=== PATIENT | female | born 1940 ===

== ENCOUNTER 2022-12-07 09:56 | Inpatient (IN) | payer OTHER ==
[2022-12-07 11:10] VITALS: BMI 23.1
--- OUTSIDE RECORDS SUMMARY | 2022-12-07 11:31 | XMS REPORT | Continuity of Care Document ---
:1940 Author Organization [facility] t Address [address] [place] [address]. [address] [place] [address] Care Team Providers Name Role Phone Sharpless Primary Care Physician MAGGIE ARCHIBALD Attending Clinician Unavailable GRECIA WALSH Attending Clinician Unavailable JOSE HU Attending Clinician Unavailable JOSE HU Attending Clinician Unavailable ELIZABETH NINA Attending Clinician Unavailable MARCIE MENCHACA Attending Clinician Unavailable MARCIE MENCHACA Attending Clinician Unavailable KYLEE NAILS Attending Clinician Unavailable Stacey Garcia RN Attending Clinician Unavailable Merced Farley RN Attending Clinician Kylee Nails MD Attending Clinician ARPAN CADENA Attending Clinician Unavailable Mery Myles MD Attending Clinician Arpan Cadena MD Attending Clinician Indio Pfeiffer MD Attending Clinician Maggie Archibald MD Attending Clinician [phone] Maico ARIAS, Elizabeth Attending Clinician CLYDE DUONG Attending Clinician Unavailable CLYDE DUONG Attending Clinician Unavailable Derrell HARTLEY Attending Clinician Unavailable Sharif Raymond MD Attending Clinician Naeem QUOC, Derrell Lay Attending Clinician JUANCHO SPEARS Attending Clinician Unavailable Lesvia PRYOR, Meli Guaman Attending Clinician Juancho Spears MD Attending Clinician Mihir Spears MD Attending Clinician Unavailable 2, [facility] Attending Clinician Unavailable Lab, Ang - Db Attending Clinician Unavailable MIGUELANGEL MCKNIGHT Attending Clinician Unavailable MIGUELANGEL MCKNIGHT Attending Clinician Unavailable Russell Lezama DO Attending Clinician RUSSELL LEZAMA Attending Clinician Unavailable RUSSELL LEZAMA Attending Clinician Unavailable ABDIAZIZ DOS SANTOS Attending Clinician Unavailable Abdiaziz Dos Santos MD Attending Clinician Unknown, Attending Attending Clinician Unavailable IFTIKHAR ALEMAN Attending Clinician Unavailable Iftikhar Aleman DO Attending Clinician Elias Alcantar MD Attending Clinician Britt Malcolm RN Attending Clinician Unavailable ELIAS ALCANTAR Attending Clinician Unavailable Soo PRYOR, Yaneli Foreman Attending Clinician YANELI VANN Attending Clinician Unavailable Doctor Unassigned, [place] Attending Clinician Unavailable Mihir Wang Attending Clinician Mat Gould MD Attending Clinician MARY MCCORMACK Attending Clinician Unavailable , [facility] Attending Clinician Unavailable UNKNOWN, ATTENDING Attending Clinician Unavailable Taras Sykes DO Attending Clinician Gianluca Rogers MD Attending Clinician Bela Dwyer MD Attending Clinician TARAS SYKES Attending Clinician Unavailable CELESTINA CHICAS Attending Clinician Unavailable CELESTINA CHICAS Attending Clinician Unavailable Phill Garza MD Attending Clinician GELA BERNARDO Attending Clinician Unavailable Gela Bernardo MD Attending Clinician PHILL GARZA Attending Clinician Unavailable Mery Mckeon DO Attending Clinician BINU CHAMPION Attending Clinician Unavailable Vivian HVAC INSTRUCTOR, Binu Attending Clinician Karely HENDRICKSON, Maddi Foreman Attending Clinician Unavailable SHANA ROGEL Attending Clinician Unavailable Shana Rogel MD Attending Clinician Cuong Alfaro MD Attending Clinician AAMIR PHILLIPS Attending Clinician Unavailable AAMIR PHILLIPS Attending Clinician Unavailable Coby Abdul DO Attending Clinician Betty ARIAS, Aamir Attending Clinician Cole Bolivar MD Attending Clinician Rylee Christian MD Attending Clinician Mathieu Paris MD Attending Clinician [phone] COBY ABDUL Attending Clinician Unavailable MATHIEU PARIS Attending Clinician Unavailable Elizabeth ARIAS, Tiara Kline Attending Clinician [phone] MARY JO BARRERA Attending Clinician Unavailable Juancho Ortiz MD Attending Clinician JUANCHO ORTIZ Attending Clinician Unavailable RICKY BALDERAS Attending Clinician Unavailable Mary Mccormack MD Attending Clinician Ricky Flores Attending Clinician Jb Velazquez Attending Clinician JB SANTOS Attending Clinician Unavailable Jessica Mcdaniel MD Attending Clinician RENATO MYLES Attending Clinician Unavailable Renato Rizzo Attending Clinician Dario Sandoval MD Attending Clinician DARIO SANDOVAL Attending Clinician Unavailable Nurse, Darrel Velasco Attending Clinician Unavailable Omaghomi HVAC INSTRUCTOR, Omayemdolores Attending Clinician MIRIAM REVELES Attending Clinician Unavailable Visit, [facility] Nurse Attending Clinician Unavailable Luci Mcgregor MD Attending Clinician , [facility] Echo Room 1 - Attending Clinician Unavailable Sulema Curiel RN Attending Clinician Unavailable [facility], [facility] Attending Clinician Unavailable Marlene Zhang RN Attending Clinician Unavailable MERNA HINSON Attending Clinician Unavailable MAGGIE ARCHIBALD Admitting Clinician Unavailable ARPAN CADENA Admitting Clinician Unavailable Arpan Cadena MD Admitting Clinician MIHIR SPEARS Admitting Clinician Unavailable Mihir Spears MD Admitting Clinician Unavailable IFTIKHAR ALEMAN Admitting Clinician Unavailable Iftikhar Aleman DO Admitting Clinician BELA DWYER Admitting Clinician Unavailable Bela Dwyer MD Admitting Clinician CELESTINA CHICAS Admitting Clinician Unavailable GELA BERNARDO Admitting Clinician Unavailable Gela Bernardo MD Admitting Clinician PHILL GARZA Admitting Clinician Unavailable Phill Garza MD Admitting Clinician AAMIR PHILLIPS Admitting Clinician Unavailable Aamir Phillips MD Admitting Clinician RYLEE CHRISTIAN Admitting Clinician Unavailable Rylee Christian MD Admitting Clinician COBY ABDUL Admitting Clinician Unavailable TIARA JOHNSON Admitting Clinician Unavailable Tiara Johnson MD Admitting Clinician [phone] JUANCHO ORTIZ Admitting Clinician Unavailable MARK DAVIS Admitting Clinician Unavailable Payers Payer Name Policy Type Policy Number Effective Date Expiration Date Kristina bourne MEDICARE PART A [id number] 2005 \\T\\ B 00:00:00 KEMAR [id number] 2020 00:00:00 Problems Condition Condition Condition Status Onset Resolution Last Treating Co mments Source Name Details Category Date Date Treatment Clinician Date Infrarenal Infrarenal Disease Active Overview : Univers abdominal abdominal 6 Formattin i ty of aortic aortic 00:00: g of this [place] aneurysm aneurysm 00 note Medica l (AAA) (AAA) might be Branch without without different rupture rupture from the original. 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 00:00: [place] occlusion occlusion 00 Medi alise Branch Sudden Sudden Disease Active Univers visual visual 6-20 ity of loss of loss of 00:00: [place] left eye left eye 00 Medica l Branch Hypotensio Hypotensio Disease Active U nivers n, n, 6-07 ity of unspecifie unspecifie 00:[place] d d 00 Medical hypotensio hypotensio Br anch n type n type E46 E46 Disease Active Univers Unspecifie Unspecifie 6-07 it y of d severe d severe 00:00: [place] protein-ca protein-ca 00 Me dical mauro mauro Branch malnutriti malnutriti on on Anticoagul Anticoagul Disease Active U nivers ant ant 4-19 ity of long-term long-term 00:[place] use use 00 [place] Acute deep Acute deep Disease Active U nivers vein vein 4-14 ity of thrombosis thrombosis 00:00[place] (DVT) of (DVT) of 00 Medica l proximal proximal Branch vein of vein of left lower left lower extremity extremity Bradycardi Bradycardi Disease Active U nivers a a 3-16 ity of 00:00: Medical Branch Pneumonia Pneumonia Disease Active Uni vers 3-16 ity of 00:00: [place] [facility] COPD COPD Disease Active Univers exacerbati exacerbati 3-16 it y of on on 00:00: [place] [facility] Abnormal Abnormal Disease Active 2021-[address] of the CT of the 2-15 ity of head head 00:00: Medical Branch CKD CKD Disease Active 2021-06 Univers (chronic (chronic 2-15 ity of kidney kidney 00:00: [place] disease) disease) 00 Medica l stage 4, stage 4, Branch GFR 15-29 GFR 15-29 ml/min ml/min Uncontroll Uncontroll Disease Active 2021-06 U nivers ed ed 2-14 ity of hypertensi hypertensi 00:00: [place] on Medical [place] Palpitatio Palpitatio Disease Active 2021-06 U nivers ns ns 1-20 ity of 00:00: [place] [facility] 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 Uni vers wilmer wilmer 0-03 ity of re-entry re-entry 00:00: [place] tachycardi tachycardi 00 Me dical a) a) Branch Pre-operat Pre-operat Disease Active 2021-06 U nivers khanh khanh 0-03 ity of cardiovasc cardiovasc 00:00: [place] ular ular Medical examinatio examinatio Br anch n n Tachycardi Tachycardi Disease Active U nivers a a 7-30 ity of 00:00: [place] [facility] 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 SVT 7-29 ity of (supravent (supravent 00:00: [place] ricular ricular 00 Medical tachycardi tachycardi Br anch a) a) SVT SVT Disease Active Univers (supravent (supravent 7-27 it y of ricular ricular 00:00: [place] tachycardi tachycardi 00 Me dical a) a) Branch Hypotensio Hypotensio Disease Active U nivers n n 7-27 ity of 00:00: [place] [facility] Chronic Chronic Disease Active Univers diastolic diastolic 7-27 ity of congestive congestive 00:00: [place] heart heart 00 Medical failure failure Branch Dyspnea, Dyspnea, Disease Active Unive rs unspecifie unspecifie 6 it y of d type d type 00:00: [place] 00 Medical Branch PAF PAF Disease Active Univers (paroxysma (paroxysma 07-12 it y of l atrial l atrial 00:00: [place] fibrillati fibrillati 00 Me dical on) on) Branch Stenosis Stenosis Disease Active Unive rs of carotid of carotid 2 it y of artery, artery, 00:00: [place] unspecifie unspecifie 00 Me dical d d Branch laterality laterality Subclavian Subclavian Disease Active U nivers artery artery 8-20 ity of stenosis, stenosis, 00:[place] left left 00 [place] Branch Unequal Unequal Disease Active Univers blood blood 5-24 ity of pressure pressure 00:00: [place] in upper in upper 00 Medica l extremitie extremitie Br anch s s Encephalop Encephalop Disease Active [facility] athy, athy, 01-20 [facility] metabolic metabolic 00:00: [facility] 00 Center Adjustment Adjustment Disease Active M ethodi disorder disorder 01-19 st with mixed with mixed 00:00: [facility] spita disturbanc disturbanc 00 l e of e of emotions emotions and and conduct conduct Altered Altered Disease Active [facility]17 [facility] status, status, 00:00: Medical unspecifie unspecifie 00 Ce nter d d Physical Physical Disease Active [facility] t deconditio deconditio 01-17 Livia kes andreia andreia 00:00: [facility] 00 Center Suicidal Suicidal Disease Active [facility] t ideations ideations 01-16 Luke s 00:00: [facility] 00 Center JANY (acute JANY (acute Disease Recurre [facility] kidney kidney nce 01-16 [facility] injury) injury) 00:00: [facility] 00 Center Leukocytos Leukocytos Disease Active C [facility] is is 01-16 [facility] 00:00: [facility] 00 Center Benzodiaze Benzodiaze Disease Recurre [facility] pine pine nce 01-15 [facility] overdose, overdose, 00:00: [facility] intentiona intentiona 00 Ce nter l l self-harm, self-harm, initial initial encounter encounter Leukocytos Leukocytos Disease Active U nivers is is 6-13 ity of 00:00: [place] 00 Medical Branch Swelling Swelling Disease Active Unive rs 6-13 ity of 00:00: [place] [address] Medical Branch Anxiety Anxiety Disease Active Univers ity of [facility] COPD COPD Disease Active Univers (chronic (chronic ity of obstructiv obstructiv [place] e e Medical pulmonary pulmonary Bran ch disease) disease) Hyperlipid Hyperlipid Disease Active U nivers emia emia ity of [facility] Tobacco Tobacco Disease Active Univers consumptio consumptio it y of n n [place] [facility] Allergies, Adverse Reactions, Alerts Allergy Allergy Status Severity Reaction(s) Onset Inactive Treating Comm ents Source Name Type Date Date Clinician Iodine Propensi Active Itching topical Univer s ty to 8-12 ity of adverse 00:00: [place] reaction 00 Medical s Branch IODINE DRUG Active ITCHING Univers INGREDI 8-12 ity of 00:00: [place] 00 Medical Branch Iodine Propensi Active Itching topical Method i ty to 01-19 st adverse 00:00: [facility]osp[facility] reaction 00 l s to drug Latex Propensi Active Rash Methodi ty to 8 adverse 00:00: [facility]osp[facility] reaction 00 l s to drug Codeine Propensi Active Unknown - 2014-06 Univ ers ty to See comments 0-12 ity of adverse 00:00: [place] reaction 00 Medical s Branch Latex Propensi Active Rash 2014-06 Univers ty to 0-12 ity of adverse 00:00: [place] reaction 00 Medical s Branch CODEINE DRUG Active Unknown-Cmnt 2014-06 Uni vers INGREDI 0-12 ity of 00:00: [place] 00 Medical Branch LATEX DRUG Active Low Unknown-Cmnt 2014-06 Univ ers INGREDI 0-12 ity of 00:00: [place] 00 Medical Branch Social History Social Habit Start Date Stop Date Quantity Comments Source History of tobacco Cigarette Smoker [facility] Medical Branch History SDOH Social Unive rsity of Connections [facility] Med ical Together Branch History SDOH Social Unive rsity of Connections [facility] Medical Branch History SDOH Social Unive rsity of Connections [place] [facility] Membership Branch History SDOH Social Unive rsity of Connections [place] [facility] Meetings Branch Gender identity [facility] Sexual orientation Method [facility] Hospital History SDOH Social 2022-11-30 2022-11-30 5 Unive rsity of Connections Phone 00:00:00 00:00:00 [facility] edical Branch History SDOH Social 2022-11-30 2022-11-30 98 Unive rsity of Connections Living 00:00:00 00:00:00 [place] [facility] History SDOH 2022-11-30 2022-11-30 0 University o f Physical Activity 00:00:00 00:00:00 [place] M edical DPW Branch History SDOH 2022-11-30 2022-11-30 0 University o f Physical Activity 00:00:00 00:00:00 [place] M edical MPS Branch History SDOH 2022-11-30 2022-11-30 5 University o f Financial 00:00:00 00:00:00 [place] [facility] History SDOH Food 2022-11-30 2022-11-30 1 Univers ity of Worry 00:00:00 00:00:00 [place] [facility] History SDOH Food 2022-11-30 2022-11-30 1 Univers ity of Scarcity 00:00:00 00:00:00 [place] [facility] History SDOH 2022-11-30 2022-11-30 2 University o f Transport Med 00:00:00 00:00:00 [place] Medic al Branch History SDCO 2022-11-30 2022-11-30 2 University o f Transport Non-Med 00:00:00 00:00:00 [place] M edical Branch History SDCO 2022-11-30 2022-11-30 1 University o f Alcohol Frequency 00:00:00 00:00:00 [place] M edical Branch History SDCO 2022-11-30 2022-11-30 2 University o f Housing Unable to 00:00:00 00:00:00 [place] M edical Pay Branch History SDCO 2022-11-30 2022-11-30 1 University o f Housing Places 00:00:00 00:00:00 [facility] alise Lived Branch History SDCO 2022-11-30 2022-11-30 2 University o f Housing Homeless 00:00:00 00:00:00 [place] dical Last Year Branch Tobacco Comment 2022-11-27 2022-11-27 Half a pack a Univer sity of 00:00:00 00:00:00 day [facility] [place] [facility] Branch Cigarette 2022-11-27 2022-11-27 University of pack-years 00:00:00 00:00:00 [facility] Tobacco use and 2022-11-27 2022-11-27 User of Universit y of exposure 00:00:00 00:00:00 smokeless [facility] [place] [facility] tobacco Branch Exposure to 2022-10-21 2022-10-31 Not sure University of SARS-CoV-2 (event) 00:00:00 14:41:00 [facility] [place] [facility] Branch Education 2022-09-21 2022-09-21 21 University of 00:00:00 00:00:00 [place] [facility] History SDOH 2022-08-23 2022-08-23 0 University o f Alcohol Std Drinks 00:00:00 00:00:00 [place] [facility] History SDOH 2022-08-23 2022-08-23 1 University o f Alcohol Binge 00:00:00 00:00:00 [place] Medic al Branch History of Social 2017-01-19 2017-01-[address] function 00:00:00 00:00:00 Hospital Alcohol Comment 2017-01-19 2017-01-19 2 beers per week [facility] 00:00:00 00:00:00 Hospital Cigarettes smoked 2017-01-19 2017-01-[address] current (pack per 00:00:00 00:00:00 Hospita l day) - Reported Alcohol intake 2017-01-17 2017-01-17 Current drinker [facility] 00:[facility]00 [facility] [place] [facility] (finding) Sex [birth year] At [birth year] JOHN Livia kes 00:00:00 00:00:00 [facility] Smoking Status Start Date Stop Date Source Smokes tobacco daily 2022-11-27 00:00:00 Univers ity of [facility] Medications Ordered Filled Start Stop Current Ordering Indication Dosage Frequency Signature Comments Components Source Medication Medication Date Date Medication? Clinician (SIG) Name Name KCL 10 mEq Yes [id number] 10meq Take 1 Univers tablet 6-29 tablet by ity of 00:00: mouth in [place] 00 the Medical morning. Branch calcium Yes [id number] 500mg Take 1 Un miracle carbonate 6-29 tablet by ity o f 500 mg 00:00: mouth in [place] calcium 00 the Medical (1,250 mg) morning. Branc h tablet cholecalcif Yes [id number] 1000U Take 1 Univers raj, 6-29 tablet by ity of vitamin D3, 00:00: [place] 25 mcg 00 the Medical (1,000 morning. Branch unit) tablet KCL 10 mEq Yes [id number] 10meq Take 1 Univers tablet 6-29 tablet by ity of 00:00: mouth in [place] 00 the Medical morning. Branch calcium 2023-0 Yes [id number] 500mg Take 1 Un miracle carbonate 6-29 tablet by ity o f 500 mg 00:00: mouth in [place] calcium 00 the Medical (1,250 mg) morning. Branc h tablet cholecalcif 2022-0 Yes [id number] 1000U Take 1 Univers raj, 6-29 tablet by ity of vitamin D3, 00:00: [place] 25 mcg 00 the Medical (000 morning. Branch unit) tablet KCL 10 mEq 2022-0 Yes [id number] 10meq Take 1 Univers tablet 6-29 tablet by ity of 00:00: mouth in [place] 00 the Medical morning. Branch calcium 2022-0 Yes [id number] 500mg Take 1 Un miracle carbonate 6-29 tablet by ity o f 500 mg 00:00: mouth in [place] calcium 00 the Medical (1,250 mg) morning. Branc h tablet cholecalcif 2022-0 Yes [id number] 1000U Take 1 Univers raj, 6-29 tablet by ity of vitamin D3, 00:00: [place] 25 mcg 00 the Medical (000 morning. Branch unit) tablet KCL 10 mEq 2022-0 Yes [id number] 10meq Take 1 Univers tablet 6-29 tablet by ity of 00:00: mouth in [place] 00 the Medical morning. Branch calcium 2022-0 Yes [id number] 500mg Take 1 Un miracle carbonate 6-29 tablet by ity o f 500 mg 00:00: mouth in [place] calcium 00 the Medical (1,250 mg) morning. Branc h tablet cholecalcif 2022-0 Yes [id number] 1000U Take 1 Univers raj, 6-29 tablet by ity of vitamin D3, 00:00: [place] 25 mcg 00 the Medical (000 morning. Branch unit) tablet predniSONE 3-0 2022- Yes [id number] Take 10 Univers 5 mg tablet 6- 07-21 tablets by i ty of 00:00: 04:59 mouth [place] 00 :00 daily for Medical 7 days, Branch THEN 8 tablets daily for 7 days, THEN 7 tablets daily for 7 days. predniSONE 3-0 2022- Yes [id number] Take 10 Univers 5 mg tablet 6- 07-21 tablets by i ty of 00:00: 04:59 mouth [place] 00 :00 daily for Medical 7 days, Branch THEN 8 tablets daily for 7 days, THEN 7 tablets daily for 7 days. predniSONE 2022-0 2022- Yes [id number] Take 10 Univers 5 mg tablet 12-06- tablets by i ty of 00:00: 04:59 mouth [place] 00 :00 daily for Medical 7 days, Branch THEN 8 tablets daily for 7 days, THEN 7 tablets daily for 7 days. predniSONE 2022-0 2022- Yes [id number] Take 10 Univers 5 mg tablet 12-06- tablets by i ty of 00:00: 04:59 mouth [place] 00 :00 daily for Medical 7 days, Branch THEN 8 tablets daily for 7 days, THEN 7 tablets daily for 7 days. ferrous 2022-0 Yes 325mg Take 1 Univers sulfate 325 -28 tablet by ity of mg (65 mg 17:48: [place] iron[place] 39 the Medical tablet morning. [place] ferrous 2022-0 Yes 325mg Take 1 Univers sulfate 325 6-28 tablet by ity of mg (65 mg 17:48: [place] iron[place] 39 the Medical tablet morning. [place] ferrous 0 Yes 325mg Take 1 Univers sulfate 325 6-28 tablet by ity of mg (65 mg 17:48: [place] iron) 39 the Medical tablet morning. [place] ferrous 0 Yes 325mg Take 1 Univers sulfate 325 6-28 tablet by ity of mg (65 mg 17:48: [place] iron) 39 the Medical tablet morning. [place] KCL 10 mEq 2022-0 2022- No 10meq Take 1 Uni vers tablet 12-05 tablet by ity of 14:37: 00:00 mouth in [place] 53 :00 the Medical morning. [place] apixaban Yes 2.5mg 2.5 mg, Unive rs (ELIQUIS) - Oral, BID, ity of tablet 2.5 13:00: [place] mg 00 on Sat12/05/22 at [place] 0800, Until Discontinu ed, Routine
Indicatio ns: Non-Valvul ar Atrial Fibrillati on losartan Yes 50mg 50 mg, Univers (COZAAR) 6-28 Oral, BID, ity o f tablet 50 01:00: First [place] mg 00 (after Medical last Branch modificati on) on Sat12/04/22 at 1999, Until Discontinu ed, Routine carvediloL 2022-0 Yes [id number] 6.25mg Take 1 Univers 6.25 mg 6-28 tablet by ity of tablet 00:00: mouth in [place] 00 the Medical morning Branch and 1 tablet in the evening. Take with meals. furosemide 2022-0 Yes [id number] 40mg Take 1 Univers 40 mg 6-28 tablet by ity of tablet 00:00: mouth [place] 00 every Medical morning Branch and evening. losartan 50 2022-0 Yes [id number] Please Univers mg tablet 6-28 take TWO ity of 00:00: TABLETS [place] 00 (100 mg) Medical in the Branch morning and ONE TABLET (50 mg) in the evening. brimonidine 0 Yes [id number] 1[drp] Place 1 Univers 0.2 % 6-28 Drop in ity of ophthalmic 00:00: left eye Heraclio as solution 00 every 8 Medical (eight) Branch hours. dorzolamide 2022-0 Yes [id number] 1[drp] Place 1 Univers 2 % 6-28 Drop in ity of ophthalmic 00:00: left eye Heraclio as solution 00 in the Medical morning Branch and 1 Drop at noon and 1 Drop in the evening. melatonin 3 0 Yes [id number] 3mg Take 1 Univers mg tablet 6-28 tablet by ity o f 00:00: mouth at [place] 00 bedtime. Medical Branch mirtazapine 2022-0 Yes [id number] 7.5mg Take 1 Univers 7.5 mg 6-28 tablet by ity of tablet 00:00: mouth at [place] 00 bedtime. Medical Branch carvediloL 2022-0 Yes [id number] 6.25mg Take 1 Univers 6.25 mg 6-28 tablet by ity of tablet 00:00: mouth in [place] 00 the Medical morning Branch and 1 tablet in the evening. Take with meals. furosemide 2022-0 Yes [id number] 40mg Take 1 Univers 40 mg 6-28 tablet by ity of tablet 00:00: mouth [place] 00 every Medical morning Branch and evening. losartan 50 2022-0 Yes [id number] Please Univers mg tablet 6-28 take TWO ity of 00:00: TABLETS [place] 00 (100 mg) Medical in the Branch morning and ONE TABLET (50 mg) in the evening. brimonidine Yes [id number] 1[drp] Place 1 Univers 0.2 % 6-28 Drop in ity of ophthalmic 00:00: left eye Heraclio as solution 00 every 8 Medical (eight) Branch hours. dorzolamide Yes [id number] 1[drp] Place 1 Univers 2 % 6-28 Drop in ity of ophthalmic 00:00: left eye Heraclio as solution 00 in the Medical morning Branch and 1 Drop at noon and 1 Drop in the evening. melatonin 3 Yes [id number] 3mg Take 1 Univers mg tablet 6-28 tablet by ity o f 00:00: mouth at [place] [address] bedtime. Medical Branch mirtazapine Yes [id number] 7.5mg Take 1 Univers 7.5 mg 6-28 tablet by ity of tablet 00:00: mouth at [place] [address] bedtime. Medical Branch carvediloL Yes [id number] 6.25mg Take 1 Univers 6.25 mg 6-28 tablet by ity of tablet 00:00: mouth in [place] 00 the Medical morning Branch and 1 tablet in the evening. Take with meals. furosemide Yes [id number] 40mg Take 1 Univers 40 mg 6-28 tablet by ity of tablet 00:00: mouth [place] 00 every Medical morning Branch and evening. losartan 50 0 Yes [id number] Please Univers mg tablet 6-28 take TWO ity of 00:00: TABLETS [place] 00 (100 mg) Medical in the Branch morning and ONE TABLET (50 mg) in the evening. brimonidine Yes [id number] 1[drp] Place 1 Univers 0.2 % 6-28 Drop in ity of ophthalmic 00:00: left eye Heraclio as solution 00 every 8 Medical (eight) Branch hours. dorzolamide 0 Yes [id number] 1[drp] Place 1 Univers 2 % 6-28 Drop in ity of ophthalmic 00:00: left eye Heraclio as solution 00 in the Medical morning Branch and 1 Drop at noon and 1 Drop in the evening. melatonin 3 Yes [id number] 3mg Take 1 Univers mg tablet 6-28 tablet by ity o f 00:00: mouth at [place] 00 bedtime. Medical Branch mirtazapine Yes [id number] 7.5mg Take 1 Univers 7.5 mg 6-28 tablet by ity of tablet 00:00: mouth at [place] 00 bedtime. Medical Branch carvediloL Yes [id number] 6.25mg Take 1 Univers 6.25 mg 6-28 tablet by ity of tablet 00:00: mouth in [place] 00 the Medical morning Branch and 1 tablet in the evening. Take with meals. furosemide Yes [id number] 40mg Take 1 [facility] 40 mg 6-28 tablet by ity of tablet 00:00: mouth [place] 00 every Medical morning Branch and evening. losartan 50 Yes [id number] Please Univers mg tablet 6-28 take TWO ity of 00:00: TABLETS [place] 00 (100 mg) Medical in the Branch morning and ONE TABLET (50 mg) in the evening. brimonidine Yes [id number] 1[drp] Place 1 Univers 0.2 % 6-28 Drop in ity of ophthalmic 00:00: left eye [place] as solution 00 every 8 Medical (eight) Branch hours. dorzolamide Yes [id number] 1[drp] Place 1 Univers 2 % 6-28 Drop in ity of ophthalmic 00:00: left eye Heraclio as solution 00 in the Medical morning Branch and 1 Drop at noon and 1 Drop in the evening. melatonin 3 Yes [id number] 3mg Take 1 Univers mg tablet 6-28 tablet by ity o f 00:00: mouth at [place] 00 bedtime. Medical Branch mirtazapine Yes [id number] 7.5mg Take 1 Univers 7.5 mg 6-28 tablet by ity of tablet 00:00: mouth at [place] 00 bedtime. Medical Branch apixaban 2022- Yes 2.5mg Take 1 Unive rs 2.5 mg 6-28 - tablet by ity of tablet 00:00: 04:59 mouth in [place] 00 :00 the Medical morning Branch and 1 tablet in the evening. Do all this for 30 days. Indication s: Non-valvul ar afib apixaban 2022- Yes 2.5mg Take 1 Unive rs 2.5 mg 12-05 tablet by ity of tablet 00:00: 04:59 mouth in [place] 00 :00 the [facility] Branch and 1 tablet in the evening. Do all this for 30 days. Indication s: Non-valvul ar afib apixaban 2022- Yes 2.5mg Take 1 Unive rs 2.5 mg 12-05 tablet by ity of tablet 00:00: 04:59 mouth in [place] 00 :00 the [facility] and 1 tablet in the evening. Do all this for 30 days. Indication s: Non-valvul ar afib apixaban 2022- Yes 2.5mg Take 1 Unive rs 2.5 mg 12-05 tablet by ity of tablet 00:00: 04:59 mouth in [place] 00 :00 the [facility] and 1 tablet in the evening. Do all this for 30 days. Indication s: Non-valvul ar afib iopamidol 2022- No [id number] 80mL 80 mL, Univers (ISOVUE 12-04 Intravenou ity o f 370-500 mL) 14:44: 14:45 s, ONCE, 1 [place] injection 00 :00 dose, On Medica l 80 mL [facility] 12/04/22 at 1000, Routine LORazepam 2022- No .5mg 0.5 mg, Univ ers (ATIVAN) 12-04 Oral, ity of tablet 0.5 14:20: 14:26 ONCE, 1 [place] mg 00 :00 dose, On [facility] 12/04/22 at 0930, BAHMAN losartan 2022- No 50mg 50 mg, Univer s (COZAAR) 12-04 Oral, ity of tablet 50 10:39: 11:30 ONCE, 1 [place] mg 00 :00 dose, On [facility] 12/04/22 at 0545, BAHMAN labetaloL 2022- No 20mg 20 mg, Unive rs (NORMODYNE) 12-04 Slow IV ity of injection 06:15: 05:45 Push, [place] 20 mg 00 :00 ONCE, 1 Medical dose, On Branch Sat12/04/22 at 0115, Routine NaCl 0.9% 3-0 2023- No 1000mL at 65 Univ ers (NS) IV 12-03 06-27 mL/hr, IV ity of infusion 21:00: 20:59 Infusion, [place] as 1,000 mL 00 :00 CONTINUOUS Medic al , Starting Branch on Sat12/03/22 at 1600, Until Sat12/04/22 at 1559, Routine carvediloL 2023-0 Yes 6.25mg 6.25 mg, U nivers (COREG) 6-25 Oral, BID ity of tablet 6.25 22:00: MEALS, [place] mg 00 First dose Medical (after Branch last modificati on) on Sat12/02/22 at 1700, Until Discontinu ed, Routine carvediloL 2023-0 Yes 6.25mg 6.25 mg, U nivers (COREG) 6-25 Oral, BID ity of tablet 6.25 22:00: MEALS, [place] mg 00 First dose Medical (after Branch last modificati on) on [place] 12/02/22 at 1700, Until Discontinu ed, Routine ipratropium 2023-0 Yes 3mL 3 mL, Unive rs -albuteroL 6-24 Inhalation ity of (DUONEB) 17:00: , QID, [place] 0.5 mg-3 00 First dose Medic al mg(2.5 mg (after Branch base)/3 mL last nebulizer modificati solution 3 on) on [facility] 12/01/22 at 1200, Until Discontinu ed, Routine ipratropium 2023-0 Yes 3mL 3 mL, Unive rs -albuteroL 6-24 Inhalation ity of (DUONEB) 17:00: , QID, [place] 0.5 mg-3 00 First dose Medic al mg(2.5 mg (after Branch base)/3 mL last nebulizer modificati solution 3 on) on [facility] 12/01/22 at 1200, Until Discontinu ed, Routine albuterol 2023-0 Yes 1{puff} 1 Puff, Un miracle (VENTOLIN) 6-24 Inhalation ity of inhaler 1 16:49: , Q6HPRN, [place] Puff 30 Starting Medical on Sat Branch 12/01/22 at 1149, Until Discontinu ed, Routine, Wheezing, Shortness of Breath albuterol Yes 1{puff} 1 Puff, Un miracle (VENTOLIN) 12-01 Inhalation ity of inhaler 1 16:49: , Q6HPRN, [place] as Puff 30 Starting Medical on Sat Branch 12/01/22 at 1149, Until Discontinu ed, Routine, Wheezing, Shortness of Breath iron 0 2022- No 200mg 200 mg, IV Unive rs sucrose 12-01 Infusion, ity of (VENOFER) 15:30: 18:12 ONCE, [place] 200 mg in 00 :00 Administer Medi alise NaCl 0.9% over 2.5 Branch (NS) 100 mL Hours, On infusion 12/01/22 at 1030, For 1 dose NaCl 0.9% 2022- No 1000mL at 65 Univ ers (NS) IV 11-30-24 mL/hr, IV ity of infusion 22:45: 13:44 Infusion, [place] as 1,000 mL 00 :00 CONTINUOUS Medic al , Starting Branch on Sat11/30/22 at 1745, Until 12/01/22 at 0844, Routine mirtazapine Yes 7.5mg 7.5 mg, Un miracle (REMERON) 6-23 Oral, QHS, ity of tablet 7.5 02:00: First dose [place] mg 00 on [facility] Medical 11/29/22 at Branch 2100, Until Discontinu ed, Routine mirtazapine Yes 7.5mg 7.5 mg, Un miracle (REMERON) -23 Oral, QHS, ity of tablet 7.5 02:00: First dose [place] mg 00 on [facility] 11/29/22 at Branch 2100, Until Discontinu ed, Routine Sliding [facility] ers Scale 6-22 us, TID ity of Insulin - 22:00: MEALS+HS, [place] Lispro 00 First dose Medical (HumaLOG) on [place] [facility] 11/29/22 at 1700, Until Discontinu ed, Routine Sliding Yes [facility] ers Scale 6-22 us, TID ity of Insulin - 22:00: MEALS+HS, [place] Lispro 00 First dose Medical (HumaLOG) on [place] Branch 11/29/22 at 1700, Until Discontinu ed, Routine carvediloL 2022- No 12.5mg 12.5 mg, Univers (COREG) 11-29 06-25 Oral, BID ity of tablet 12.5 22:00: 15:36 MEALS, [place] mg 00 :22 First dose Medical (after Branch last modificati on) on [place] 11/29/22 at 1700, Until Discontinu ed, Routine dextrose Yes 250mL 250 mL, IV Un miracle 10% (D10W) 11-29 Infusion, ity of bolus 20:41: PRN - SEE [place] infusion 56 INSTRUCTIO Medic al 250 mL NS, Branch Administer over 60 Minutes, Other, If blood glucose is < or = 70 mg/dL and patient is unable to swallow or has mental status changes, Starting on [place] 11/29/22 at 1541
If blood glucose is < or = 70 mg/dL and patient is unable to swallow or has mental status changes (Give glucagon order if patient needs fluid restrictio n): IF IV access available: Dextrose 10%. 1. 125 mL (? bag) of D10W IV infusion - equivalent to 12.5 g dextrose 2. Blood glucose - draw blood glucose 15 minutes after D10W Administra tion. 3. If blood glucose is < 80 mg/dL, repeat.
dextrose Yes 250mL 250 mL, IV Un miracle 10% (D10W) 11-29 Infusion, ity of bolus 20:41: PRN - SEE [place] infusion 56 INSTRUCTIO Medic al 250 mL NS, Branch Administer over 60 Minutes, Other, If blood glucose is < or = 70 mg/dL and patient is unable to swallow or has mental status changes, Starting on [place] 11/29/22 at 1541
If blood glucose is < or = 70 mg/dL and patient is unable to swallow or has mental status changes (Give glucagon order if patient needs fluid restrictio n): IF IV access available: Dextrose 10%. 1. 125 mL (? bag) of D10W IV infusion - equivalent to 12.5 g dextrose 2. Blood glucose - draw blood glucose 15 minutes after D10W Administra tion. 3. If blood glucose is < 80 mg/dL, repeat.
glucagon 2022-0 Yes 1mg 1 mg, Univers (GLUCAGEN 11-29 Intramuscu ity of DIAGNOSTIC 20:41: [place], [place]N, [place] KIT[place] 52 Starting Medical injection 1 on [facility] 11/29/22 at 1541, Until Discontinu ed, BAHMAN, Blood Glucose < or = 70 mg/dL and patient is NPO, unable to swallow or has mental changes. glucagon 2022-0 Yes 1mg 1 mg, Univers (GLUCAGEN 11-29 Intramuscu ity of DIAGNOSTIC 20:41: [place], PRN, [place] KIT) 52 Starting Medical injection 1 on [facility] 11/29/22 at 1541, Until Discontinu ed, BAHMAN, Blood Glucose < or = 70 mg/dL and patient is NPO, unable to swallow or has mental changes. NaCl 0.9% 0 2022- No 500mL at 75 Unive rs (NS) IV 11-29 06-22 mL/hr, IV ity of infusion 15:00: 15:34 Infusion, [place] 500 mL 00 :39 ONCE, 1 Medical dose, On [facility] 11/29/22 at 1000, Routine predniSONE 2022-0 Yes 60mg 60 mg, Unive rs (DELTASONE) 11-29 Oral, ity of tablet 60 14:00: DAILY, [place] mg 00 First dose Medical on [facility] 11/29/22 at 0900, Until Discontinu ed, Routine predniSONE 2022-0 Yes 60mg 60 mg, Unive rs (DELTASONE) 11-29 Oral, ity of tablet 60 14:00: DAILY, [place] mg 00 First dose Medical on [facility] 11/29/22 at 0900, Until Discontinu ed, Routine ipratropium 2022-0 202- No 3mL 3 mL, Univ ers -albuteroL 11-29 06-24 Inhalation it y of (DUONEB) 13:00: 16:49 , TID, [place] 0.5 mg-3 00 :43 First dose Medic al mg(2.5 mg (after Branch base)/3 mL last nebulizer modificati solution 3 on) on [place] mL 11/29/22 at 0800, Until Discontinu ed, Routine melatonin 0 Yes 3mg 3 mg, Univers (MELATIN) 6-22 Oral, QHS, ity of tablet 3 mg 07:15: First dose on [place] [facility] 11/29/22 at Branch 0215, Until Discontinu ed, Routine melatonin 0 Yes 3mg 3 mg, Univers (MELATIN) -22 Oral, QHS, ity of tablet 3 mg 07:15: First dose [place] on [place] [facility] 11/29/22 at Branch 0215, Until Discontinu ed, Routine ipratropium 2022- No 3mL 3 mL, [facility] ers -albuteroL 11-29 Inhalation it y of (DUONEB) 07:07: 11:33 , [place] PIPER as 0.5 mg-3 00 :16 Starting Medical mg(2.5 mg on [place] Branch base)/3 mL 11/29/22 at nebulizer 0207, solution 3 Until [place] mL 11/29/22 at 0633, Routine, Wheezing fluticasone Yes 1{spray 1 [place], Univers propionate 11-29 } Nasal, ity of 50 03:30: DAILY, [place] mcg/actuati 00 First dose Me dical on nasal on Sat Branch spray 1 11/28/22 at [place] 2230, Until Discontinu ed, Routine fluticasone 0 Yes 1{spray 1 [place], Univers propionate 11-29 } Nasal, ity of 50 03:30: DAILY, [place] mcg/actuati 00 First dose Me dical on nasal on Sat Branch spray 1 11/28/22 at [place] 2230, Until Discontinu ed, Routine gadobenate 2022- No [id number] .2mL/kg 12.6 mL Univers dimeglumine 11-28 9105 (0.2 mL/kg i ty of (MULTIHANCE 16:15: 14:16 ?63 kg), [place] -15 mL) 00 :00 Intravenou Medica l injection s, ONCE, 1 Bran ch 12.6 mL dose, On Sat11/28/22 at 1115, Routine pantoprazol Yes 40mg 40 mg, Univ ers e 11-28 Oral, ity of (PROTONIX) 14:00: DAILY, [place] EC tablet 00 First dose Medi alise 40 mg on Sat Branch 11/28/22 at 0900, Until Discontinu ed, Routine pantoprazol Yes 40mg 40 mg, Univ ers e 11-28 Oral, ity of (PROTONIX) 14:00: DAILY, [place] EC tablet 00 First dose Medi alise 40 mg on Sat Branch 11/28/22 at 0900, Until Discontinu ed, Routine LORazepam 2022- No .5mg 0.5 mg, Univ ers (ATIVAN) 11-28 Oral, ity of tablet 0.5 13:03: 13:05 ONCE, 1 [place] mg 00 :00 dose, On Medical Wed Branch 11/28/22 at 0815, Routine carvediloL 2022- No 25mg 25 mg, Univ ers (COREG) 11-28 Oral, BID ity of tablet 25 13:00: 18:40 MEALS, [place] mg 00 :04 First dose Medical (after Branch last modificati on) on Sat11/28/22 at 0800, Until Discontinu ed, Routine methylPREDN 2022- No 1000mg 1,000 mg, Univers ISolone 11-28 Intravenou ity o f sodium 01:00: 18:00 s, DAILY, [place] succinate 00 :00 2 doses, Medica l (SOLU-MEDRO First dose Br anch L) 1,000 mg (after in D5W 250 last mL reorder) VIAL-MATE on Tu IV 11/27/22 at piggyback 2000, Last dose on Sat11/28/22 at 0900, Administer over 60 Minutes, 250 mL carvediloL 2022- No 12.5mg 12.5 mg, Univers (COREG) 11-27 Oral, ity of tablet 12.5 22:30: 21:57 ONCE, 1 [place] mg 00 :00 dose, On Medical Tue Branch 11/27/22 at 1730, Routine aspirin 2023-0 2023- No 81mg 81 mg, Univers chewable 11-2721 Oral, ity of tablet 81 21:00: 16:51 DAILY, [place] mg 00 :20 First dose Medical on Sat Branch 11/27/22 at 1600, Until Discontinu ed, Routine labetaloL 2022-0 Yes 20mg 20 mg, Univer s (NORMODYNE) 6-20 Slow IV ity o f injection 18:47: Push, [place] 20 mg 04 Q6HPRN, Medical Starting Branch on Sat11/27/22 at 1347, Until Discontinu ed, Routine, SBP > 130, DBP > 90 labetaloL 2022-0 Yes 20mg 20 mg, Univer s (NORMODYNE) 6-20 Slow IV ity o f injection 18:47: Push, [place] 20 mg 04 Q6HPRN, Medical Starting Branch on Sat11/27/22 at 1347, Until Discontinu ed, Routine, SBP > 130, DBP > 90 HEPARIN 2022-2022- No 60U/kg 3,780 Univer s SODIUM 11-27-20 Units (60 ity of (PORCINE) 15:30: 17:00 Units/kg [place] as 1,000 00 :00 ?63 kg), Medical UNIT/ML IV [place], Branch BOLUS ACS ONCE, 1 ORDER SET dose, On Sat11/27/22 at 1030, BAHMAN sulfur 2022-0 2022- No [id number] 5mL 5 mL, Un miracle hexafluorid 11-2720 9105 Intravenou i ty of e microsphr 15:30: 15:30 s, ONCE, 1 [place] (LUMASON) 00 :00 dose, On Medica l injection 5 e Branch mL 11/27/22 at 1030, Routine
direct support staff member approving Restricted medication : CELESTINA CHICAS heparin Yes 0U/h 0-2,150 Univers 25,000 -20 Units/hr ity of Units/250 15:23: (0-21.5 [place] mL 27 mL/hr), IV Medical (Premixed Infusion, Branc h Bag) in D5W TITRATE, Parameters in Admin. Instr., Starting on Sat11/27/22 at 1023
In itiate dosing:&nb sp; & nbsp;&nbsp ; -Patient 83 kg or under: 750 Units/hr (Calculate d dose at 12 units/kg/h r) &n bsp; &nbs p; -Patient over 83 k,000 units/hr&n bsp;DO NOT Exceed the MAXIMUM 1,000 units/hr for initiation of heparin drip.&nbsp ; CAU TION - If LMWH given in ER, AVOID bolus and start next dose/drip 12 hrs after ER dosage.&nb sp; M ust program rate using programmab le infusion pump.&nbsp ; Irma ck with the ordering provider first prior to any administra tion should the patient be on existing/a dditional anticoagul ant therapy. Rang e, Dosing and Testing: &nbs p;FOR [facility], AND [facility] ONLY &nbs p; - aPTT < 35: & nbsp;Bolus 5000 units, increase rate 300 units/hr&n bsp; - aPTT 35-44:&nbs p; Bang judson 3000 units, increase rate 200 units/hr&n bsp; - aPTT 45-54:&nbs p; In crease rate 100 units/hr&n bsp; - aPTT 55-85:&nbs p; NO CHANGE&nbs p; - aPTT 86-95:&nbs p; De crease rate 100 units/hr&n bsp; - aPTT 96-120:&nb sp; H old 30 minutes, decrease rate 150 units/hr&a mp;nbsp; - aPTT > 120: Hold 60 minutes, decrease rate 200 units/hr&n bsp; Check aPTT 6 hours after initiation , then Q6H after every change, aPTT Q12H once therapeuti c levels are reached.&n bsp; &nbs p; __ &n bsp;FOR [facility] ONLY - aPTT < 40: & nbsp;Bolus 5000 units, increase rate 300 units/hr&n bsp; - aPTT 40-49:&amp ;nbsp;&nbs p;Bolus 3000 units, increase rate 200 units/hr&n bsp; - aPTT 50-59:&nbs p; In crease rate 100 units/hr&n bsp; - aPTT 60-85:&nbs p; NO CHANGE&nbs p; - aPTT 86-95:&nbs p; De crease rate 100 units/hr&n bsp; - aPTT 96-120:&nb sp; H old 30 minutes, decrease rate 150 units/hr&n bsp; - aPTT > 120: Hold 60 minutes, decrease rate 200 units/hr&n bsp; Check aPTT 6 hours after initiation , then Q6H after every change, aPTT Q12H once therapeuti c levels are reached.&n bsp; DO NOT ADJUST INITIAL BOLUS OR INITIAL INFUSION RATE.
heparin 2022-0 Yes 3000U FOR Univers (1,000 6-20 REBOLUSING ity of unit/mL, 10 15:23: , Starting [place] mL vial) 27 on [facility] for 11/27/22 at Branch Rebolusing 1023, Until Discontinu ed, Routine
Dosing based on aPPT testing parameters (refer to continuous heparin drip order).
heparin 2022-0 2023- No 0U/h 0-2,150 Univer s 25,000 6-20 06-28 Units/hr ity of Units/250 15:23: 12:52 (0-21.5 [place] mL 27 :00 mL/hr), IV Medical (Premixed Infusion, Branc h Bag) in D5W TITRATE, Parameters in Admin. Instr., Starting on Sat11/27/22 at 1023
In itiate dosing:&nb sp; & nbsp;&nbsp ; -Patient 83 kg or under: 750 Units/hr (Calculate d dose at 12 units/kg/h r) &n bsp; &nbs p; -Patient over 83 k,000 units/hr&n bsp;DO NOT Exceed the MAXIMUM 1,000 units/hr for initiation of heparin drip.&nbsp ; CAU TION - If LMWH given in ER, AVOID bolus and start next dose/drip 12 hrs after ER dosage.&nb sp; M ust program rate using programmab le infusion pump.&nbsp ; Irma ck with the ordering provider first prior to any administra tion should the patient be on existing/a dditional anticoagul ant therapy. Rang e, Dosing and Testing: &nbs p;FOR [facility], AND [facility] ONLY &nbs p; - aPTT < 35: & nbsp;Bolus 5000 units, increase rate 300 units/hr&n bsp; - aPTT 35-44:&nbs p; Bang judson 3000 units, increase rate 200 units/hr&n bsp; - aPTT 45-54:&nbs p; In crease rate 100 units/hr&n bsp; - aPTT 55-85:&nbs p; NO CHANGE&nbs p; - aPTT 86-95:&nbs p; De crease rate 100 units/hr&n bsp; - aPTT 96-120:&nb sp; H old 30 minutes, decrease rate 150 units/hr&a mp;nbsp; - aPTT > 120: Hold 60 minutes, decrease rate 200 units/hr&n bsp; Check aPTT 6 hours after initiation , then Q6H after every change, aPTT Q12H once therapeuti c levels are reached.&n bsp; &nbs p; __ &n bsp;FOR [facility] ONLY - aPTT < 40: & nbsp;Bolus 5000 units, increase rate 300 units/hr&n bsp; - aPTT 40-49:&amp ;nbsp;&nbs p;Bolus 3000 units, increase rate 200 units/hr&n bsp; - aPTT 50-59:&nbs p; In crease rate 100 units/hr&n bsp; - aPTT 60-85:&nbs p; NO CHANGE&nbs p; - aPTT 86-95:&nbs p; De crease rate 100 units/hr&n bsp; - aPTT 96-120:&nb sp; H old 30 minutes, decrease rate 150 units/hr&n bsp; - aPTT > 120: Hold 60 minutes, decrease rate 200 units/hr&n bsp; Check aPTT 6 hours after initiation , then Q6H after every change, aPTT Q12H once therapeuti c levels are reached.&n bsp; DO NOT ADJUST INITIAL BOLUS OR INITIAL INFUSION RATE.
heparin 2022-2022- No 3000U FOR Univers (1,000 6-20 - REBOLUSING ity of unit/mL, 10 15:23: 12:52 , Starting [place] mL vial) 27 :00 on [facility] for 11/27/22 at Branch Rebolusing 1023, Until Sat12/05/22 at 0752, Routine
Dosing based on aPPT testing parameters (refer to continuous heparin drip order).
Saline Yes [id number] 6mL 6 mL, Uni vers Bubble 11-27 9105 Injection, ity of Study 15:13: SEE-INSTRU [address] Starting Branch on Sat11/27/22 at 1013, Until Discontinu ed, Routine Saline Yes [id number] 6mL 6 mL, Uni vers Bubble 11-27 9105 Injection, ity of Study 15:13: SEE-INSTRU [address] Starting [place] on Sat11/27/22 at 1013, Until Discontinu ed, Routine ipratropium 2022- No 3mL 3 mL, [facility] ers -albuteroL 11-27- Inhalation it y of (DUONEB) 14:30: 07:04 , TID, 6 [place] 0.5 mg-3 00 :07 doses, Medical mg(2.5 mg First dose Bran ch base)/3 mL (after nebulizer last solution 3 reorder) mL on Sat11/27/22 at 0930, Last dose on Sat11/28/22 at 2000, Routine calcium Yes 500mg 500 mg, Univer s carbonate 11-27 Oral, ity of (OSCAL-500) 14:00: DAILY, [place] tablet 500 00 First dose Med ical mg on [facility] 11/27/22 at 0900, Until Discontinu ed, Routine cholecalcif Yes 1000U 1,000 [facility] ers raj - Units, ity of (vitamin 14:00: Oral, [place] D3) tablet 00 DAILY, Medical 1,000 Units First dose Br anch on Sat11/27/22 at 0900, Until Discontinu ed, Routine sennosides- Yes 1{tbl} 1 tablet, Univers docusate 11-27 Oral, ity of sodium 14:00: DAILY, [place] (SENOKOT-S) 00 First dose Me dical 8.6-50 mg on [facility] per tablet 11/27/22 at 1 tablet 0900, Until Discontinu ed, Routine losartan 2023-0 Yes 50mg 50 mg, Univers (COZAAR) 6-20 Oral, ity of tablet 50 14:00: DAILY, [place] mg 00 First dose Medical on [facility] 11/27/22 at 0900, Until Discontinu ed, Routine KCL 2023-0 Yes 10meq 10 mEq, Univers (KLOR-CON 6-20 Oral, ity of M10) tablet 14:00: DAILY, [place] 10 mEq 00 First dose Medical on [facility] 11/27/22 at 0900, Until Discontinu ed, Routine furosemide 2023-0 Yes 40mg 40 mg, Unive rs (LASIX) 6-20 Oral, ity of tablet 40 14:00: QAM+PM, [place] mg 00 First dose Medical on [facility] 11/27/22 at 0900, Until Discontinu ed, Routine cetirizine 3-0 Yes 5mg 5 mg, Univer s (ALLERGY 6-20 Oral, ity of RELIEF 14:00: DAILY, [place] (CETIRIZINE 00 First dose Me dical )) tablet 5 on [facility] mg 11/27/22 at 0900, Until Discontinu ed, Routine atorvastati 3-0 Yes 40mg 40 mg, Univ ers n (LIPITOR) 6-20 Oral, ity of tablet 40 14:00: DAILY, [place] mg 00 First dose Medical on [facility] 11/27/22 at 0900, Until Discontinu ed, Routine amLODIPine 3-0 Yes 10mg 10 mg, Unive rs (NORVASC) 6-20 Oral, ity of tablet 10 14:00: DAILY, [place] mg 00 First dose Medical on [facility] 11/27/22 at 0900, Until Discontinu ed, Routine calcium 2023-0 Yes 500mg 500 mg, Univer s carbonate 6-20 Oral, ity of (OSCAL-500) 14:00: DAILY, [place] tablet 500 00 First dose Med ical mg on [facility] 11/27/22 at 0900, Until Discontinu ed, Routine cholecalcif 2023-0 Yes 1000U 1,000 Univ ers raj 6-20 Units, ity of (vitamin 14:00: Oral, [place] D3) tablet 00 DAILY, Medical 1,000 Units First dose Br anch on [facility] 11/27/22 at 0900, Until Discontinu ed, Routine sennosides- 2022-0 Yes 1{tbl} 1 tablet, Univers docusate 6-20 Oral, ity of sodium 14:00: DAILY, [place] (SENOKOT-S) 00 First dose Me dical 8.6-50 mg on [facility] per tablet 11/27/22 at 1 tablet 0900, Until Discontinu ed, Routine KCL 0 Yes 10meq 10 mEq, Univers (KLOR-CON 6-20 Oral, ity of M10) tablet 14:00: DAILY, [place] 10 mEq 00 First dose Medical on [facility] 11/27/22 at 0900, Until Discontinu ed, Routine furosemide 0 Yes 40mg 40 mg, Unive rs (LASIX) 6-20 Oral, ity of tablet 40 14:00: QAM+PM, [place] mg 00 First dose Medical on [facility] 11/27/22 at 0900, Until Discontinu ed, Routine cetirizine 0 Yes 5mg 5 mg, Univer s (ALLERGY 6-20 Oral, ity of RELIEF 14:00: DAILY, [place] (CETIRIZINE 00 First dose Me dical )) tablet 5 on [facility] mg 11/27/22 at 0900, Until Discontinu ed, Routine atorvastati 0 Yes 40mg 40 mg, Univ ers n (LIPITOR) 6-20 Oral, ity of tablet 40 14:00: DAILY, [place] mg 00 First dose Medical on [facility] 11/27/22 at 0900, Until Discontinu ed, Routine amLODIPine 0 Yes 10mg 10 mg, Unive rs (NORVASC) 6-20 Oral, ity of tablet 10 14:00: DAILY, [place] mg 00 First dose Medical on [facility] 11/27/22 at 0900, Until Discontinu ed, Routine losartan 2022- No 50mg 50 mg, Univer s (COZAAR) 6-20 -27 Oral, ity of tablet 50 14:00: 18:00 DAILY, [place] mg 00 :00 First dose Medical on [facility] 11/27/22 at 0900, Until Discontinu ed, Routine pantoprazol 2022- No 40mg 40 mg, Uni vers e 11-27 Slow IV ity of (PROTONIX) 13:15: 12:05 Push, [place] injection 00 :38 Q12H, Medical 40 mg First dose Branch on Sat11/27/22 at 0815, Until Discontinu ed gabapentin 2022-0 Yes 300mg 300 mg, Uni vers (NEURONTIN) -20 Oral, BID, it y of capsule 300 13:00: First dose [place] mg 00 on [facility] 11/27/22 at Branch 0800, Until Discontinu ed, Routine gabapentin 2022-0 Yes 300mg 300 mg, Uni vers (NEURONTIN) -20 Oral, BID, it y of capsule 300 13:00: First dose [place] mg 00 on [facility] 11/27/22 at Branch 0800, Until Discontinu ed, Routine carvediloL 2022-0 2022- No 12.5mg 12.5 mg, Univers (COREG) 11-27 Oral, BID ity of tablet 12.5 13:00: 21:40 MEALS, [place] mg 00 :11 First dose Medical on [facility] 11/27/22 at 0800, Until Discontinu ed, Routine hydrALAZINE 2022-0 2022- No 50mg 50 mg, Uni vers (APRESOLINE 11-27 Oral, Q8H, i ty of ) tablet 50 11:00: 21:40 First dose [place] mg 00 :11 on [facility] 11/27/22 at Branch 0600, Until Discontinu ed, Routine nicotine 2022-0 Yes 1{patch 1 Patch, Un miracle (NICODERM) 6-20 } Topical, ity o f 14 mg/24 hr 09:00: Administer [place] patch 1 00 over 24 Medical Patch Hours, Branch Q24H, First dose on 11/27/22 at 0400, Until Discontinu ed, Routine nicotine 2022-0 Yes 1{patch 1 Patch, Un miracle (NICODERM) 6-20 } Topical, ity o f 14 mg/24 hr 09:00: Administer [place] patch 1 00 over 24 Medical Patch Hours, Branch Q24H, First dose on 11/27/22 at 0400, Until Discontinu ed, Routine acetaminoph 2023-0 Yes 650mg 650 mg, Un miracle en 11-27 Oral, ity of (TYLENOL) 06:27: Q6HPRN, [place] tablet 650 53 Starting Medic al mg on Tue Branch 11/27/22 at 0127, Until Discontinu ed, Routine, Pain (scale 1-3) acetaminoph 3-0 Yes 650mg 650 mg, Un miracle en 11-27 Oral, ity of (TYLENOL) 06:27: Q6HPRN, [place] tablet 650 53 Starting Medic al mg on Tue Branch 11/27/22 at 0127, Until Discontinu ed, Routine, Pain (scale 1-3) methylPREDN 2022-0 2022- No 1000mg 1,000 mg, Univers ISolone 11-27 Intravenou ity o f sodium 06:15: 09:15 s, ONCE, 1 [place] succ[place] 00 :00 dose, On Medica l (SOLU-MEDRO e Branch L) 1,000 mg 11/27/22 at in D5W 250 0115, mL Administer VIAL-MATE over 60 IV Minutes, piggyback 250 mL dorzolamide 2022-0 Yes 1[drp] 1 Drop, U nivers (TRUSOPT) 2 6-20 Left Eye, ity of % 05:00: TID, First ophthalmic 00 dose on Medica l solution 1 Tue Branch Drop 11/27/22 at 0000, Until Discontinu ed, BAHMAN brimonidine 2022-0 Yes 1[drp] 1 Drop, U nivers (ALPHAGAN) 6-20 Left Eye, ity of 0.2 % 05:00: Q8H, First ophthalmic 00 dose on Medica l solution 1 Tue Branch Drop 11/27/22 at 0000, Until Discontinu ed, BAHMAN dorzolamide 2022-0 Yes 1[drp] 1 Drop, U nivers (TRUSOPT) 2 6-20 Left Eye, ity of % 05:00: TID, First ophthalmic 00 dose on Medica l solution 1 Tue Branch Drop 11/27/22 at 0000, Until Discontinu ed, BAHMAN brimonidine 2022-0 Yes 1[drp] 1 Drop, U nivers (ALPHAGAN) 6-20 Left Eye, ity of 0.2 % 05:00: Q8H, First [place] ophthalmic 00 dose on Medica l solution 1 Tue Branch Drop 11/27/22 at 0000, Until Discontinu ed, BAHMAN iopamidol 2022- No [id number] 80mL 80 mL, Univers (ISOVUE 11-27 9105 Intravenou ity o f 370-500 mL) 03:04: 02:50 s, ONCE, 1 [place] injection 00 :00 dose, On Medica l 80 mL [facility] 11/26/22 at 2215, Routine ferrous 2022-0 Yes 325mg Take 1 Univers sulfate 325 6-20 tablet by ity of mg (65 mg 02:14: mouth in [place] [facility] iron) 45 the Medical tablet morning. Branch KCL 10 mEq 2022- Yes 10meq Take 1 Univ ers tablet 6-20 tablet by ity of 02:14: mouth in [place] 45 the Medical morning. Branch ipratropium 2022- No 3mL 3 mL, Univ ers -albuteroL 11-2720 Inhalation it y of (DUONEB) 02:00: 01:54 , ONCE, 1 [place] 0.5 mg-3 00 :00 dose, On Medical mg(2.5 mg [facility] base)/3 mL 11/26/22 at nebulizer 2100, solution 3 Routine mL NaCl 0.9% 0 Yes 5mL 5 mL, Slow Un miracle (NS) 6-20 IV Push, ity of injection 5 00:47: PRN - [place] mL 51 [facility] Medical NS, Branch Starting on Sat11/26/22 at 1947, Until Discontinu ed, 10 mL NaCl 0.9% 0 Yes 5mL 5 mL, Slow Un miracle (NS) 6-20 IV Push, ity of injection 5 00:47: PRN - [place] mL 51 [facility] Medical NS, Branch Starting on Sat11/26/22 at 1947, Until Discontinu ed, 10 mL furosemide 2022-0 Yes [id number] 40mg Take 1 [facility] 40 mg 6-15 02 tablet by ity of tablet 00:00: mouth [place] 00 every Medical morning Branch and evening. furosemide 2022-0 Yes [id number] 40mg Take 1 [facility] 40 mg 6-15 02 tablet by ity of tablet 00:00: mouth [place] 00 every Medical morning Branch and evening. furosemide 3-0 Yes [id number] 40mg Take 1 [facility] 40 mg 6-15 02 tablet by ity of tablet 00:00: mouth [place] 00 every Medical morning Branch and evening. furosemide 3-0 Yes [id number] 40mg Take 1 [facility] 40 mg 6-15 02 tablet by ity of tablet 00:00: mouth [place] 00 every Medical morning Branch and evening. furosemide 2022-0 2023- No [id number] 40mg Take 1 Univers 40 mg 6-15 - 02 tablet by ity of tablet 00:00: 00:00 mouth [place] 00 :00 every Medical morning Branch and evening. ferrous 2023-0 Yes 325mg Take 1 [facility] sulfate 325 6-14 tablet by ity of mg (65 mg 13:43: mouth in [place] [facility] iron) 34 the Medical tablet morning. Branch KCL 10 mEq 2022-0 Yes 10meq Take 1 Univ ers tablet 6-14 tablet by ity of 13:43: mouth in [place] [address] the Medical morning. Branch ferrous 3-0 Yes 325mg Take 1 Univers sulfate 325 6-14 tablet by ity of mg (65 mg 13:43: [facility] 34 the Medical tablet morning. Branch KCL 10 mEq 2022-0 Yes 10meq Take 1 Univ ers tablet 6-14 tablet by ity of 13:43: mouth in [place] [address] the Medical morning. Branch ferrous 3-0 Yes 325mg Take 1 Univers sulfate 325 6-14 tablet by ity of mg (65 mg 13:43: mouth in [facility]) 34 the Medical tablet morning. Branch KCL 10 mEq 2022-0 Yes 10meq Take 1 Univ ers tablet 6-14 tablet by ity of 13:43: mouth in [place] [address] the Medical morning. Branch levalbutero 2022-0 2022- No 1.25mg 1.25 mg, Univers l (XOPENEX) 11-20 Inhalation i ty of nebulizer 17:15: 16:29 , ONCE, 1 [place] solution 00 :00 dose, On Medical 1.25 mg Tue Branch 11/20/22 at 1215, Routine ipratropium 2022-0 2022- No .5mg 0.5 mg, Un miracle (ATROVENT) 11-20 Inhalation it y of 0.02 % 16:30: 16:29 , ONCE, 1 [place] nebulizer 00 :00 dose, On Medica l solution Tue Branch 0.5 mg 11/20/22 at 1130, BAHMAN ferrous 3-0 Yes 325mg Take 1 Univers sulfate 325 6-09 tablet by ity of mg (65 mg 17:23: mouth in [facility]) 35 the Medical tablet morning. Branch KCL 10 mEq 3-0 Yes 10meq Take 1 Univ ers tablet 6-09 tablet by ity of 17:23: mouth in [place] [address] the Medical morning. Branch ferrous 2023-0 Yes 325mg Take 1 Univers sulfate 325 6-09 tablet by ity of mg (65 mg 17:23: mouth in [facility]) 35 the Medical tablet morning. Branch KCL 10 mEq 3-0 Yes 10meq Take 1 Univ ers tablet 6-09 tablet by ity of 17:23: mouth in [place] [address] the Medical morning. Branch ferrous 2023-0 Yes 325mg Take 1 Univers sulfate 325 6-09 tablet by ity of mg (65 mg 17:23: mouth in [facility]) 35 the Medical tablet morning. Branch KCL 10 mEq 3-0 Yes 10meq Take 1 Univ ers tablet 6-09 tablet by ity of 17:23: mouth in [place] [address] the Medical morning. Branch ferrous 2023-0 Yes 325mg Take 1 Univers sulfate 325 6-09 tablet by ity of mg (65 mg 17:23: mouth in [facility]) 35 the Medical tablet morning. Branch KCL 10 mEq 3-0 Yes 10meq Take 1 Univ ers tablet 6-09 tablet by ity of 17:23: mouth in [place] [address] the Medical morning. Branch ivermectin 3-0 2023- No 12mg 12 mg, Univ ers (STROMECTOL 11-16 Oral, ity of ) tablet 12 13:30: 16:36 ONCE, 1 [place] mg 00 :00 dose, On Medical Sat11/16/22 Branch at 0830, Routine NaCl 0.9% 3-0 Yes 10mL 10 mL, Univer s (NS) 11-16 Slow IV ity of injection 10:27: Push, PRN, [place] 10 mL 33 Starting Medical on Sat Branch 11/16/22 at 0527, Until Discontinu ed, Routine, line maintenanc e lidocaine 3-0 Yes 5mL 5 mL, Univers 1% (PF) 11-16 Subcutaneo ity of (XYLOCAINE) 10:27: us, PRN, [place] injection 5 32 Starting Medi alise mL on Fri Branch 11/16/22 at 0527, Until Discontinu ed, Routine, Local anesthesia pantoprazol 2023-0 Yes [id number] 40mg Take 1 Univers e 40 mg EC 6-09 tablet by ity of tablet 00:00: mouth in [place] [address] the Medical morning [place] and 1 tablet in the evening. pantoprazol 2023-0 Yes [id number] 40mg Take 1 Univers e 40 mg EC 6-09 tablet by ity of tablet 00:00: mouth in [place] [address] [facility] morning [place] and 1 tablet in the evening. pantoprazol 2023-0 Yes [id number] 40mg Take 1 Univers e 40 mg EC 6-09 tablet by ity of tablet 00:00: mouth in [place] [address] the Medical morning [place] and 1 tablet in the evening. pantoprazol 2023-0 Yes [id number] 40mg Take 1 Univers e 40 mg EC 6-09 tablet by ity of tablet 00:00: mouth in [place] [address] the [facility] morning [place] and 1 tablet in the evening. pantoprazol 2023-0 Yes [id number] 40mg Take 1 Univers e 40 mg EC 6-09 tablet by ity of tablet 00:00: mouth in [place] [address] the [facility] morning [place] and 1 tablet in the evening. pantoprazol 2023-0 Yes [id number] 40mg Take 1 Univers e 40 mg EC 6-09 tablet by ity of tablet 00:00: mouth in [address] morning [place] and 1 tablet in the evening. pantoprazol 2023-0 Yes [id number] 40mg Take 1 Univers e 40 mg EC 6-09 tablet by ity of tablet 00:00: mouth in [place] [address] the [facility] morning [place] and 1 tablet in the evening. pantoprazol 2023-0 Yes [id number] 40mg Take 1 Univers e 40 mg EC 6-09 tablet by ity of tablet 00:00: mouth in [place] [address] the [facility] morning [place] and 1 tablet in the evening. pantoprazol 2023-0 Yes [id number] 40mg Take 1 Univers e 40 mg EC 6-09 tablet by ity of tablet 00:00: mouth in [place] [address] the [facility] morning Branch and 1 tablet in the evening. pantoprazol 2022-0 Yes [id number] 40mg Take 1 Univers e 40 mg EC 11-16 tablet by ity of tablet 00:00: mouth in [place] [address] the [facility] morning Branch and 1 tablet in the evening. pantoprazol 3-0 Yes [id number] 40mg Take 1 Univers e 40 mg EC 11-16 tablet by ity of tablet 00:00: mouth in [place] [address] the [facility] morning [place] and 1 tablet in the evening. pantoprazol 2022-0 Yes [id number] 40mg Take 1 Univers e 40 mg EC 11-16 tablet by ity of tablet 00:00: mouth in [place] [address] the [facility] morning [place] and 1 tablet in the evening. polyethylen 0 Yes 17g 17 g, Unive rs e glycol 11-15 Oral, ity of 3350 powder 15:15: DAILY, [place] 17 g 00 First dose Medical on Sat [place] 11/15/22 at 1015, Until Discontinu ed, Routine sennosides- 0 Yes 1{tbl} 1 tablet, Univers docusate 11-15 Oral, ity of sodium 15:15: DAILY, [place] (SENOKOT-S) 00 First dose Me dical 8.6-50 mg on Sat [place] per tablet 11/15/22 at 1 tablet 1015, Until Discontinu ed, Routine tiotropium 0 Yes 18ug 18 mcg, Univ ers (SPIRIVA) 11-14 Inhalation ity of inhalation 14:00: , DAILY, [place] 18 mcg 00 First dose Medical on Sat11/14/22 at 0900, Until Discontinu ed, Routine pantoprazol 0 Yes 40mg 40 mg, Univ ers e 11-14 Slow IV ity of (PROTONIX) 13:00: Push, [place] injection 00 Q12H, Medical 40 mg First dose Branch on Sat11/14/22 at 0800, Until Discontinu ed gabapentin 2022-0 Yes 300mg 300 mg, Uni vers (NEURONTIN) 11-14 Oral, BID, it y of capsule 300 13:00: First dose [place] mg 00 on Sat Medical 11/14/22 at Branch 0800, Until Discontinu ed, Routine phytonadion 2022-0 202- No 10mg IV Unive rs e (VITAMIN 11-14 Piggyback, it y of K) 10 mg in 09:45: 09:47 ONCE, 1 [place] NaCl 0.9% 00 :00 dose, On Medica l (NS) Sat11/14/22 Branch piggyback at 0445, 50 mL pantoprazol 2022- No 80mg 80 mg, Uni vers e 11-14 Slow IV ity of (PROTONIX) 09:00: 12:37 Push, [place] injection 00 :39 Q12HA3, Medical 80 mg First dose Branch on Sat11/14/22 at 0400, Until Discontinu ed ipratropium Yes 3mL 3 mL, Unive rs -albuteroL 11-14 Inhalation ity of (DUONEB) 08:45: , TID, [place] 0.5 mg-3 00 First dose Medic al mg(2.5 mg on Sat base)/3 mL 11/14/22 at nebulizer 0345, solution 3 Until mL Discontinu ed, Routine acetaminoph Yes 650mg 650 mg, Un miracle en 11-14 Oral, ity of (TYLENOL) 08:39: Q6RN, [place] tablet 650 22 Starting Medic al mg on Sat11/14/22 at 0339, Until Discontinu ed, Routine, Pain (scale 1-3) albuterol 0 Yes 2{puff} 2 Puff, Un miracle (VENTOLIN) 11-14 Inhalation ity of inhaler 2 08:22: , Q6HPRN, [place] Puff 28 Starting Medical on Sat11/14/22 at 0322, Until Discontinu ed, Routine, Wheezing, Shortness of Breath cefTRIAXone 0 2022- No 1000mg 1,000 mg, Univers (ROCEPHIN) 11-14 IV ity of 1,000 mg in 05:30: 06:00 [facility], [place] NaCl 0.9% 00 :00 ONCE, 1 Medical (NS) 100 mL dose, On Bran ch MINI-BAG Sat11/14/22 at 0030, Administer over 30 Minutes, 100 mL
Reas on for Anti-Infec tive: Documented Infection< br>Documen beatriz Infection Site: Urine<br&g t;Duration of Therapy: 7 days furosemide 3-0 2022- No 20mg 20 mg, Univ ers (LASIX) 11-14 Slow IV ity of injection 04:15: 04:38 Push, [place] 20 mg 00 :00 ONCE, 1 Medical dose, On Branch [place] 11/13/22 at 2315, Routine acetaminoph 2023-0 2023- No 1300mg Take 2 U nivers en 650 mg 11-14 tablets by ity of CR tablet 03:40: 00:00 mouth in [place] 42 :00 the Medical morning Branch and 2 tablets at noon and 2 tablets in the evening. ferrous 2023-0 Yes 325mg Take 1 [facility] sulfate 325 6-07 tablet by ity of mg (65 mg 03:40: mouth in [facility] s iron) 39 the Medical tablet morning. Branch KCL 10 mEq 2023-0 Yes 10meq Take 1 Univ ers tablet 6-07 tablet by ity of 03:40: mouth in [place] 39 the Medical morning. Branch ferrous 2023-0 Yes 325mg Take 1 [facility] sulfate 325 6-07 tablet by ity of mg (65 mg 03:40: [facility] the Medical tablet morning. Branch KCL 10 mEq 3-0 Yes 10meq Take 1 Univ ers tablet 6-07 tablet by ity of 03:40: mouth in [place] 39 the Medical morning. Branch ferrous 2023-0 Yes 325mg Take 1 [facility] sulfate 325 6-07 tablet by ity of mg (65 mg 03:40: mouth [facility]) [facility] the Medical tablet morning. Branch KCL 10 mEq 2023-0 Yes 10meq Take 1 Univ ers tablet 6-07 tablet by ity of 03:40: mouth in [place] 39 the Medical morning. Branch ferrous 2023-0 Yes 325mg Take 1 [facility] sulfate 325 6-07 tablet by ity of mg (65 mg 03:40: mouth in [facility]) [facility] the Medical tablet morning. Branch KCL 10 mEq 2023-0 Yes 10meq Take 1 Univ ers tablet 6-07 tablet by ity of 03:40: mouth in [place] 39 the Medical morning. Branch ferrous 2023-0 Yes 325mg Take 1 [facility] sulfate 325 6-07 tablet by ity of mg (65 mg 03:40: mouth [facility] the Medical tablet morning. Branch KCL 10 mEq 3-0 Yes 10meq Take 1 Univ ers tablet 6-07 tablet by ity of 03:40: mouth in [place] 39 the Medical morning. Branch ferrous 3-0 Yes 325mg Take 1 [facility] sulfate 325 6-07 tablet by ity of mg (65 mg 03:40: mouth in [facility]) 39 the Medical tablet morning. Branch KCL 10 mEq 3-0 Yes 10meq Take 1 Univ ers tablet 6-07 tablet by ity of 03:40: mouth in [place] 39 the Medical morning. Branch ferrous 3-0 Yes 325mg Take 1 Univers sulfate 325 6-07 tablet by ity of mg (65 mg 03:40: mouth in [facility]) 39 the Medical tablet morning. Branch KCL 10 mEq 3-0 Yes 10meq Take 1 Univ ers tablet 6-07 tablet by ity of 03:40: mouth in [place] [address] the Medical morning. Branch warfarin 5 2022-0 Yes [id number] Take 5 mg Univers mg tablet 5-31 on five ity of 00:00: days a week and Medical 2.5 mg on Branch two days a week warfarin 5 2022-0 Yes [id number] Take 5 mg Univers mg tablet 5-31 on five ity of 00:00: days a week and Medical 2.5 mg on Branch two days a week warfarin 5 2022-0 Yes [id number] Take 5 mg Univers mg tablet 5-31 on five ity of 00:00: days a and Medical 2.5 mg on Branch two days a week warfarin 5 2022-0 Yes [id number] Take 5 mg Univers mg tablet 5-31 on five ity of 00:00: days a week and Medical 2.5 mg on Branch two days a week warfarin 5 2022-0 Yes [id number] Take 5 mg Univers mg tablet 5-31 on five ity of 00:00: days a week and Medical 2.5 mg on Branch two days a week warfarin 5 2022-0 Yes [id number] Take 5 mg Univers mg tablet 5-31 on five ity of 00:00: days a week and Medical 2.5 mg on Branch two days a week warfarin 5 2022-0 Yes [id number] Take 5 mg Univers mg tablet 5-31 on five ity of 00:00: days a [place] 00 week and Medical 2.5 mg on Branch two days a week warfarin 5 2022-0 Yes [id number] Take 5 mg Univers mg tablet 5-31 on five ity of 00:00: days a [place] 00 week and Medical 2.5 mg on Branch two days a week warfarin 5 2022-0 Yes [id number] Take 5 mg Univers mg tablet 5-31 on five ity of 00:00: days a 00 week and Medical 2.5 mg on Branch two days a week warfarin 5 2022-0 2023- No [id number] Take 5 mg Univers mg tablet 5-31 06-09 on five ity of 00:00: 00:00 days a [place] 00 :00 week and Medical 2.5 mg on Branch two days a week hydrALAZINE 2022-0 3- No 50mg Take 1 Uni vers 50 mg 5-17 05-17 tablet by ity of tablet 11:41: 00:00 mouth [place] 45 :00 every 8 Medical (eight) Branch hours. hydrALAZINE 2022-0 Yes [id number] 50mg Take 1 Univers 50 mg 5-17 tablet by ity of tablet 00:00: mouth [place] 00 every 8 Medical (eight) Branch hours. hydrALAZINE 2022-0 Yes [id number] 50mg Take 1 Univers 50 mg 5-17 tablet by ity of tablet 00:00: mouth [place] 00 every 8 Medical (eight) Branch hours. hydrALAZINE 2022-0 Yes [id number] 50mg Take 1 Univers 50 mg 5-17 tablet by ity of tablet 00:00: mouth [place] 00 every 8 Medical (eight) Branch hours. hydrALAZINE 2022-0 Yes [id number] 50mg Take 1 Univers 50 mg 5-17 tablet by ity of tablet 00:00: mouth [place] 00 every 8 Medical (eight) Branch hours. hydrALAZINE 3-0 Yes [id number] 50mg Take 1 Univers 50 mg 5-17 tablet by ity of tablet 00:00: mouth [place] 00 every 8 Medical (eight) Branch hours. hydrALAZINE 3-0 Yes [id number] 50mg Take 1 Univers 50 mg 5-17 tablet by ity of tablet 00:00: mouth [place] 00 every 8 Medical (eight) Branch hours. hydrALAZINE 2022-0 Yes [id number] 50mg Take 1 Univers 50 mg 5-17 tablet by ity of tablet 00:00: mouth [place] 00 every 8 Medical (eight) Branch hours. hydrALAZINE 2023-0 Yes [id number] 50mg Take 1 Univers 50 mg 5-17 tablet by ity of tablet 00:00: mouth [place] 00 every 8 Medical (eight) Branch hours. hydrALAZINE 2023-0 Yes [id number] 50mg Take 1 [facility] 50 mg 5-17 tablet by ity of tablet 00:00: mouth [place] 00 every 8 Medical (eight) Branch hours. hydrALAZINE 2023-0 Yes [id number] 50mg Take 1 Univers 50 mg 5-17 tablet by ity of tablet 00:00: mouth [place] 00 every 8 Medical (eight) Branch hours. hydrALAZINE 2023-0 Yes [id number] 50mg Take 1 Univers 50 mg 5-17 tablet by ity of tablet 00:00: mouth [place] 00 every 8 Medical (eight) Branch hours. hydrALAZINE 2023-0 Yes [id number] 50mg Take 1 Univers 50 mg 5-17 tablet by ity of tablet 00:00: mouth [place] 00 every 8 Medical (eight) Branch hours. hydrALAZINE 2023-0 Yes [id number] 50mg Take 1 Univers 50 mg 5-17 tablet by ity of tablet 00:00: mouth [place] 00 every 8 Medical (eight) Branch hours. hydrALAZINE 2023-0 Yes [id number] 50mg Take 1 Univers 50 mg 5-17 tablet by ity of tablet 00:00: mouth [place] 00 every 8 Medical (eight) Branch hours. hydrALAZINE 2023-0 Yes [id number] 50mg Take 1 Univers 50 mg 5-17 tablet by ity of tablet 00:00: mouth [place] 00 every 8 Medical (eight) Branch hours. hydrALAZINE 2023-0 Yes [id number] 50mg Take 1 Univers 50 mg 5-17 tablet by ity of tablet 00:00: mouth [place] 00 every 8 Medical (eight) Branch hours. hydrALAZINE 2023-0 Yes [id number] 50mg Take 1 [facility] 50 mg 5-17 tablet by ity of tablet 00:00: mouth [place] 00 every 8 Medical (eight) Branch hours. hydrALAZINE 2023-0 Yes [id number] 50mg Take 1 [facility] 50 mg 5-17 tablet by ity of tablet 00:00: mouth [place] 00 every 8 Medical (eight) Branch hours. hydrALAZINE 2023-0 Yes [id number] 50mg Take 1 Univers 50 mg 5-17 tablet by ity of tablet 00:00: mouth [place] 00 every 8 Medical (eight) Branch hours. hydrALAZINE 2023-0 Yes [id number] 50mg Take 1 Univers 50 mg 5-17 tablet by ity of tablet 00:00: mouth [place] 00 every 8 Medical (eight) Branch hours. hydrALAZINE 2023-0 Yes [id number] 50mg Take 1 Univers 50 mg 5-17 tablet by ity of tablet 00:00: mouth [place] 00 every 8 Medical (eight) Branch hours. hydrALAZINE 2023-0 Yes [id number] 50mg Take 1 Univers 50 mg 5-17 tablet by ity of tablet 00:00: mouth [place] 00 every 8 Medical (eight) Branch hours. hydrALAZINE 2023-0 Yes [id number] 50mg Take 1 Univers 50 mg 5-17 tablet by ity of tablet 00:00: mouth [place] 00 every 8 Medical (eight) Branch hours. hydrALAZINE 2023-0 Yes [id number] 50mg Take 1 Univers 50 mg 5-17 tablet by ity of tablet 00:00: mouth [place] 00 every 8 Medical (eight) Branch hours. hydrALAZINE 2023-0 Yes [id number] 50mg Take 1 Univers 50 mg 5-17 tablet by ity of tablet 00:00: mouth [place] 00 every 8 Medical (eight) Branch hours. hydrALAZINE 2023-0 Yes [id number] 50mg Take 1 Univers 50 mg 5-17 tablet by ity of tablet 00:00: mouth [place] 00 every 8 Medical (eight) Branch hours. hydrALAZINE 2023-0 Yes [id number] 50mg Take 1 Univers 50 mg 5-17 tablet by ity of tablet 00:00: mouth [place] 00 every 8 Medical (eight) Branch hours. hydrALAZINE 2023-0 Yes [id number] 50mg Take 1 Univers 50 mg 5-17 tablet by ity of tablet 00:00: mouth [place] 00 every 8 Medical (eight) Branch hours. hydrALAZINE 2023-0 2023- No [id number] 50mg Take 1 Univers 50 mg 5-17 06-28 tablet by ity of tablet 00:00: 00:00 mouth [place] 00 :00 every 8 Medical (eight) Branch hours. cefUROXime 2023-0 Yes [id number] 500mg Take 1 [facility] 500 mg 5-10 tablet by ity of tablet 00:00: mouth in [place] [address] the Medical morning Branch and 1 tablet in the evening. cefUROXime 2023-0 Yes [id number] 500mg Take 1 Univers 500 mg 5-10 tablet by ity of tablet 00:00: mouth in [place] [address] the Medical morning [place] and 1 tablet in the evening. cefUROXime 2023-0 Yes [id number] 500mg Take 1 Univers 500 mg 5-10 tablet by ity of tablet 00:00: mouth in [place] [address] the Medical morning [place] and 1 tablet in the evening. cefUROXime 2023-0 Yes [id number] 500mg Take 1 [facility] 500 mg 5-10 tablet by ity of tablet 00:00: mouth in [place] [address] the [facility] morning [place] and 1 tablet in the evening. cefUROXime 2023-0 Yes [id number] 500mg Take 1 [facility] 500 mg 5-10 tablet by ity of tablet 00:00: mouth in [place] [address] the [facility] morning [place] and 1 tablet in the evening. cefUROXime 2023-0 Yes [id number] 500mg Take 1 [facility] 500 mg 5-10 tablet by ity of tablet 00:00: mouth in [place] [address] the [facility] morning [place] and 1 tablet in the evening. cefUROXime 2023-0 Yes [id number] 500mg Take 1 Univers 500 mg 5-10 tablet by ity of tablet 00:00: mouth in [address] and 1 tablet in the evening. cefUROXime 2023-0 Yes [id number] 500mg Take 1 Univers 500 mg 5-10 tablet by ity of tablet 00:00: mouth in [address] morning [place] and 1 tablet in the evening. cefUROXime 2023-0 Yes [id number] 500mg Take 1 Univers 500 mg 5-10 tablet by ity of tablet 00:00: mouth in [address] morning [place] and 1 tablet in the evening. cefUROXime 2023-0 Yes [id number] 500mg Take 1 [facility] 500 mg 5-10 tablet by ity of tablet 00:00: mouth in [address] and 1 tablet in the evening. cefUROXime 2023-0 Yes [id number] 500mg Take 1 [facility] 500 mg 5-10 tablet by ity of tablet 00:00: mouth in [place] 00 the Medical morning Branch and 1 tablet in the evening. cefUROXime 2023-0 Yes [id number] 500mg Take 1 [facility] 500 mg 5-10 tablet by ity of tablet 00:00: mouth in [place] [address] the Medical morning Branch and 1 tablet in the evening. cefUROXime 2023-0 Yes [id number] 500mg Take 1 [facility] 500 mg 5-10 tablet by ity of tablet 00:00: mouth in [place] [address] the [facility] morning Branch and 1 tablet in the evening. cefUROXime 2023-0 Yes [id number] 500mg Take 1 [facility] 500 mg 5-10 tablet by ity of tablet 00:00: mouth in [place] [address] the Medical morning Branch and 1 tablet in the evening. cefUROXime 2023-0 Yes [id number] 500mg Take 1 [facility] 500 mg 5-10 tablet by ity of tablet 00:00: mouth in [place] [address] the [facility] morning [place] and 1 tablet in the evening. cefUROXime 2023-0 Yes [id number] 500mg Take 1 [facility] 500 mg 5-10 tablet by ity of tablet 00:00: mouth in [address] morning [place] and 1 tablet in the evening. cefUROXime 2023-0 Yes [id number] 500mg Take 1 [facility] 500 mg 5-10 tablet by ity of tablet 00:00: mouth in [address] morning [place] and 1 tablet in the evening. cefUROXime 2023-0 Yes [id number] 500mg Take 1 [facility] 500 mg 5-10 tablet by ity of tablet 00:00: mouth in [address] morning [place] and 1 tablet in the evening. cefUROXime 2023-0 Yes [id number] 500mg Take 1 [facility] 500 mg 5-10 tablet by ity of tablet 00:00: mouth in [address] morning [place] and 1 tablet in the evening. cefUROXime 2023-0 Yes [id number] 500mg Take 1 [facility] 500 mg 5-10 tablet by ity of tablet 00:00: mouth in [address] morning [place] and 1 tablet in the evening. cefUROXime 2023-0 Yes [id number] 500mg Take 1 [facility] 500 mg 5-10 tablet by ity of tablet 00:00: mouth in [address] morning [place] and 1 tablet in the evening. cefUROXime 2023-0 Yes [id number] 500mg Take 1 [facility] 500 mg 5-10 tablet by ity of tablet 00:00: mouth in [address] Medical morning [place] and 1 tablet in the evening. cefUROXime 2023-0 Yes [id number] 500mg Take 1 [facility] 500 mg 5-10 tablet by ity of tablet 00:00: mouth in [address] morning [place] and 1 tablet in the evening. cefUROXime 2023-0 Yes [id number] 500mg Take 1 [facility] 500 mg 5-10 tablet by ity of tablet 00:00: mouth in [place] [address] [facility] morning [place] and 1 tablet in the evening. cefUROXime 2023-0 Yes [id number] 500mg Take 1 [facility] 500 mg 5-10 tablet by ity of tablet 00:00: mouth in [address] morning [place] and 1 tablet in the evening. cefUROXime 2023-0 Yes [id number] 500mg Take 1 [facility] 500 mg 5-10 tablet by ity of tablet 00:00: mouth in [address] morning [place] and 1 tablet in the evening. cefUROXime 2023-0 Yes [id number] 500mg Take 1 [facility] 500 mg 5-10 tablet by ity of tablet 00:00: mouth in [address] morning [place] and 1 tablet in the evening. cefUROXime 2023-0 Yes [id number] 500mg Take 1 [facility] 500 mg 5-10 tablet by ity of tablet 00:00: mouth in [address] morning [place] and 1 tablet in the evening. cefUROXime 2023-0 Yes [id number] 500mg Take 1 [facility] 500 mg 5-10 tablet by ity of tablet 00:00: mouth in [address] morning [place] and 1 tablet in the evening. cefUROXime 2023-0 Yes [id number] 500mg Take 1 [facility] 500 mg 5-10 tablet by ity of tablet 00:00: mouth in [address] morning [place] and 1 tablet in the evening. cefUROXime 2023-0 Yes [id number] 500mg Take 1 [facility] 500 mg 5-10 tablet by ity of tablet 00:00: mouth in [address] morning [place] and 1 tablet in the evening. cefUROXime 2023-0 Yes [id number] 500mg Take 1 [facility] 500 mg 5-10 tablet by ity of tablet 00:00: mouth in [address] morning [place] and 1 tablet in the evening. cefUROXime 2023-0 Yes [id number] 500mg Take 1 [facility] 500 mg 5-10 tablet by ity of tablet 00:00: mouth in [place] 00 the Medical morning Branch and 1 tablet in the evening. cefUROXime 3-0 Yes [id number] 500mg Take 1 [facility] 500 mg 5-10 tablet by ity of tablet 00:00: mouth in [place] 00 the Medical morning Branch and 1 tablet in the evening. cefUROXime 3-0 2023- No [id number] 500mg Take 1 [facility] 500 mg 5-10 06-28 tablet by ity of tablet 00:00: 00:00 mouth in [place] 00 :00 the Medical morning Branch and 1 tablet in the evening. fluticasone 2022-0 Yes [id number] 2{puff} Inhale 2 [facility] propion-anjum 5-04 Puffs in ity of meteroL 00:00: the [place] (ADVAIR 00 morning Medical HFA) 115-21 and 2 Branch mcg/actuati Puffs in on inhaler the evening. tiotropium 2022-0 Yes 18ug Inhale 1 [facility] vers (SPIRIVA 5-04 capsule in ity o f WITH 00:00: the [place] [facility]) 00 morning. Medi alise 18 mcg INHALE THE Branch inhalation CONTENTS OF 1 CAPSULE VIA INHALATION DEVICE DAILY DIRECTED albuterol 2022-0 Yes [id number] 2{puff} Inhale 2 [facility] 90 5-04 Puffs ity of mcg/actuati 00:00: every 6 [place] as on inhaler 00 (six) Medical hours as Branch needed for Wheezing or Shortness of Breath. albuterol 2022-0 Yes [id number] 2.5mg Inhale 3 [facility] 2.5 mg /3 5-04 mL every 4 ity of mL (0.083 00:00: (four) [place] %) 00 hours as Medical nebulizer needed for Bran ch solution Wheezing or Shortness of Breath. fluticasone 2022-0 Yes [id number] 2{puff} Inhale 2 [facility] propion-anjum 5-04 Puffs in ity of meteroL 00:00: the [place] (ADVAIR 00 morning Medical HFA) 115-21 and 2 Branch mcg/actuati Puffs in on inhaler the evening. tiotropium 2022-0 Yes 18ug Inhale 1 [facility] vers (SPIRIVA 5-04 capsule in ity o f WITH 00:00: the [place] [facility]) 00 morning. Medi alise 18 mcg INHALE THE Branch inhalation CONTENTS OF 1 CAPSULE VIA INHALATION DEVICE DAILY DIRECTED albuterol 2022-0 Yes [id number] 2{puff} Inhale 2 [facility] 90 5-04 Puffs ity of mcg/actuati 00:00: every 6 [place] as on inhaler 00 (six) Medical hours as Branch needed for Wheezing or Shortness of Breath. albuterol 2022-0 Yes [id number] 2.5mg Inhale 3 [facility] 2.5 mg /3 5-04 mL every 4 ity of mL (0.083 00:00: (four) [place] %) 00 hours as Medical nebulizer needed for Bran ch solution Wheezing or Shortness of Breath. fluticasone 2022-0 Yes [id number] 2{puff} Inhale 2 [facility] propion-anjum 5-04 Puffs in ity of meteroL 00:00: the [place] (ADVAIR 00 morning Medical HFA) 115-21 and 2 Branch mcg/actuati Puffs in on inhaler the evening. tiotropium Yes 18ug Inhale 1 [facility] vers (SPIRIVA 5-04 capsule in ity o f WITH 00:00: the [place] [facility]) 00 morning. Medi alise 18 mcg INHALE THE Branch inhalation CONTENTS OF 1 CAPSULE VIA INHALATION DEVICE DAILY DIRECTED albuterol 2022-0 Yes [id number] 2{puff} Inhale 2 [facility] 90 5-04 Puffs ity of mcg/actuati 00:00: every 6 [place] as on inhaler 00 (six) Medical hours as Branch needed for Wheezing or Shortness of Breath. albuterol 2022-0 Yes [id number] 2.5mg Inhale 3 [facility] 2.5 mg /3 5-04 mL every 4 ity of mL (0.083 00:00: (four) [place] %) 00 hours as Medical nebulizer needed for Bran ch solution Wheezing or Shortness of Breath. fluticasone 2022-0 Yes [id number] 2{puff} Inhale 2 [facility] propion-anjum 5-04 Puffs in ity of meteroL 00:00: the [place] (ADVAIR 00 morning Medical HFA) 115-21 and 2 Branch mcg/actuati Puffs in on inhaler the evening. tiotropium 2022-0 Yes 18ug Inhale 1 [facility] vers (SPIRIVA 5-04 capsule in ity o f WITH 00:00: the [place] [facility]) 00 morning. Medi alise 18 mcg INHALE THE Branch inhalation CONTENTS OF 1 CAPSULE VIA INHALATION DEVICE DAILY DIRECTED albuterol 2022-0 Yes [id number] 2{puff} Inhale 2 [facility] 90 5-04 Puffs ity of mcg/actuati 00:00: every 6 [place] as on inhaler 00 (six) Medical hours as Branch needed for Wheezing or Shortness of Breath. albuterol 2022-0 Yes [id number] 2.5mg Inhale 3 [facility] 2.5 mg /3 5-04 mL every 4 ity of mL (0.083 00:00: (four) [place] %) 00 hours as Medical nebulizer needed for Bran ch solution Wheezing or Shortness of Breath. fluticasone 2022-0 Yes [id number] 2{puff} Inhale 2 [facility] propion-anjum 5-04 Puffs in ity of meteroL 00:00: the [place] (ADVAIR 00 morning Medical HFA) 115-21 and 2 Branch mcg/actuati Puffs in on inhaler the evening. tiotropium 0 Yes 18ug Inhale 1 [facility] vers (SPIRIVA 5-04 capsule in ity o f WITH 00:00: the [place] [facility]) 00 morning. Medi alise 18 mcg INHALE THE Branch inhalation CONTENTS OF 1 CAPSULE VIA INHALATION DEVICE DAILY DIRECTED albuterol 2022-0 Yes [id number] 2{puff} Inhale 2 [facility] 90 5-04 Puffs ity of mcg/actuati 00:00: every 6 [place] as on inhaler 00 (six) Medical hours as Branch needed for Wheezing or Shortness of Breath. albuterol 2022-0 Yes [id number] 2.5mg Inhale 3 [facility] 2.5 mg /3 5-04 mL every 4 ity of mL (0.083 00:00: (four) [place] %) 00 hours as Medical nebulizer needed for Bran ch solution Wheezing or Shortness of Breath. fluticasone 2022-0 Yes [id number] 2{puff} Inhale 2 [facility] propion-anjum 5-04 Puffs in ity of meteroL 00:00: the [place] (ADVAIR 00 morning Medical HFA) 115-21 and 2 Branch mcg/actuati Puffs in on inhaler the evening. tiotropium 2023-0 Yes 18ug Inhale 1 [facility] vers (SPIRIVA 5-04 capsule in ity o f WITH 00:00: the [place] [facility]) 00 morning. Medi alise 18 mcg INHALE THE Branch inhalation CONTENTS OF 1 CAPSULE VIA INHALATION DEVICE DAILY DIRECTED albuterol 2023-0 Yes [id number] 2{puff} Inhale 2 [facility] 90 5-04 Puffs ity of mcg/actuati 00:00: every 6 [place] as on inhaler 00 (six) Medical hours as Branch needed for Wheezing or Shortness of Breath. albuterol 3-0 Yes [id number] 2.5mg Inhale 3 [facility] 2.5 mg /3 5-04 mL every 4 ity of mL (0.083 00:00: (four) [place] %) 00 hours as Medical nebulizer needed for Bran ch solution Wheezing or Shortness of Breath. fluticasone 3-0 Yes [id number] 2{puff} Inhale 2 [facility] propion-anjum 5-04 Puffs in ity of meteroL 00:00: the [place] (ADVAIR 00 morning Medical HFA) 115-21 and 2 Branch mcg/actuati Puffs in on inhaler the evening. tiotropium 2023-0 Yes 18ug Inhale 1 [facility] vers (SPIRIVA 5-04 capsule in ity o f WITH 00:00: the [place] HAND[facility]) 00 morning. Medi alise 18 mcg INHALE THE Branch inhalation CONTENTS OF 1 CAPSULE VIA INHALATION DEVICE DAILY DIRECTED albuterol 2023-0 Yes [id number] 2{puff} Inhale 2 [facility] 90 5-04 Puffs ity of mcg/actuati 00:00: every 6 [place] as on inhaler 00 (six) Medical hours as Branch needed for Wheezing or Shortness of Breath. albuterol 3-0 Yes [id number] 2.5mg Inhale 3 [facility] 2.5 mg /3 5-04 mL every 4 ity of mL (0.083 00:00: (four) [place] %) 00 hours as Medical nebulizer needed for Bran ch solution Wheezing or Shortness of Breath. fluticasone 2023-0 Yes [id number] 2{puff} Inhale 2 [facility] propion-anjum 5-04 Puffs in ity of meteroL 00:00: the [place] (ADVAIR 00 morning Medical HFA) 115-21 and 2 Branch mcg/actuati Puffs in on inhaler the evening. tiotropium 2023-0 Yes 18ug Inhale 1 [facility] vers (SPIRIVA 5-04 capsule in ity o f WITH 00:00: the [place] HAND[facility]) 00 morning. Medi alise 18 mcg INHALE THE Branch inhalation CONTENTS OF 1 CAPSULE VIA INHALATION DEVICE DAILY DIRECTED albuterol 2023-0 Yes [id number] 2{puff} Inhale 2 [facility] 90 5-04 Puffs ity of mcg/actuati 00:00: every 6 [place] as on inhaler 00 (six) Medical hours as Branch needed for Wheezing or Shortness of Breath. albuterol 3-0 Yes [id number] 2.5mg Inhale 3 [facility] 2.5 mg /3 5-04 mL every 4 ity of mL (0.083 00:00: (four) [place] %) 00 hours as Medical nebulizer needed for Bran ch solution Wheezing or Shortness of Breath. fluticasone 2022-0 Yes [id number] 2{puff} Inhale 2 [facility] propion-anjum 5-04 Puffs in ity of meteroL 00:00: the [place] (ADVAIR 00 morning Medical HFA) 115-21 and 2 Branch mcg/actuati Puffs in on inhaler the evening. tiotropium 3-0 Yes 18ug Inhale 1 [facility] vers (SPIRIVA 5-04 capsule in ity o f WITH 00:00: the [place] HAND[facility]) 00 morning. Medi alise 18 mcg INHALE THE Branch inhalation CONTENTS OF 1 CAPSULE VIA INHALATION DEVICE DAILY DIRECTED albuterol 3-0 Yes [id number] 2{puff} Inhale 2 [facility] 90 5-04 Puffs ity of mcg/actuati 00:00: every 6 [place] as on inhaler 00 (six) Medical hours as Branch needed for Wheezing or Shortness of Breath. albuterol 3-0 Yes [id number] 2.5mg Inhale 3 [facility] 2.5 mg /3 5-04 mL every 4 ity of mL (0.083 00:00: (four) [place] %) 00 hours as Medical nebulizer needed for Bran ch solution Wheezing or Shortness of Breath. fluticasone 2023-0 Yes [id number] 2{puff} Inhale 2 [facility] propion-anjum 5-04 Puffs in ity of meteroL 00:00: the [place] (ADVAIR 00 morning Medical HFA) 115-21 and 2 Branch mcg/actuati Puffs in on inhaler the evening. tiotropium 2023-0 Yes 18ug Inhale 1 [facility] vers (SPIRIVA 5-04 capsule in ity o f WITH 00:00: the [place] HAND[facility]AL[facility]) 00 morning. Medi alise 18 mcg INHALE THE Branch inhalation CONTENTS OF 1 CAPSULE VIA INHALATION DEVICE DAILY DIRECTED albuterol 2023-0 Yes [id number] 2{puff} Inhale 2 [facility] 90 5-04 Puffs ity of mcg/actuati 00:00: every 6 [place] as on inhaler 00 (six) Medical hours as Branch needed for Wheezing or Shortness of Breath. albuterol 2022-0 Yes [id number] 2.5mg Inhale 3 [facility] 2.5 mg /3 5-04 mL every 4 ity of mL (0.083 00:00: (four) [place] %) 00 hours as Medical nebulizer needed for Bran ch solution Wheezing or Shortness of Breath. fluticasone 2022-0 Yes [id number] 2{puff} Inhale 2 [facility] propion-anjum 5-04 Puffs in ity of meteroL 00:00: the [place] (ADVAIR 00 morning Medical HFA) 115-21 and 2 Branch mcg/actuati Puffs in on inhaler the evening. tiotropium 2023-0 Yes 18ug Inhale 1 [facility] vers (SPIRIVA 5-04 capsule in ity o f WITH 00:00: the [place] HAND[facility]) 00 morning. Medi alise 18 mcg INHALE THE Branch inhalation CONTENTS OF 1 CAPSULE VIA INHALATION DEVICE DAILY DIRECTED albuterol 2023-0 Yes [id number] 2{puff} Inhale 2 [facility] 90 5-04 Puffs ity of mcg/actuati 00:00: every 6 [place] as on inhaler 00 (six) Medical hours as Branch needed for Wheezing or Shortness of Breath. albuterol 3-0 Yes [id number] 2.5mg Inhale 3 [facility] 2.5 mg /3 5-04 mL every 4 ity of mL (0.083 00:00: (four) [place] %) 00 hours as Medical nebulizer needed for Bran ch solution Wheezing or Shortness of Breath. fluticasone 2023-0 Yes [id number] 2{puff} Inhale 2 [facility] propion-anjum 5-04 Puffs in ity of meteroL 00:00: the [place] (ADVAIR 00 morning Medical HFA) 115-21 and 2 Branch mcg/actuati Puffs in on inhaler the evening. tiotropium 3-0 Yes 18ug Inhale 1 [facility] vers (SPIRIVA 5-04 capsule in ity o f WITH 00:00: the [place] HAND[facility]) 00 morning. Medi alise 18 mcg INHALE THE Branch inhalation CONTENTS OF 1 CAPSULE VIA INHALATION DEVICE DAILY DIRECTED albuterol 2022-0 Yes [id number] 2{puff} Inhale 2 [facility] 90 5-04 Puffs ity of mcg/actuati 00:00: every 6 [place] as on inhaler 00 (six) Medical hours as Branch needed for Wheezing or Shortness of Breath. albuterol 2022-0 Yes [id number] 2.5mg Inhale 3 [facility] 2.5 mg /3 5-04 mL every 4 ity of mL (0.083 00:00: (four) [place] %) 00 hours as Medical nebulizer needed for Bran ch solution Wheezing or Shortness of Breath. fluticasone 2022-0 Yes [id number] 2{puff} Inhale 2 [facility] propion-anjum 5-04 Puffs in ity of meteroL 00:00: the [place] (ADVAIR 00 morning Medical HFA) 115-21 and 2 Branch mcg/actuati Puffs in on inhaler the evening. tiotropium 2022-0 Yes 18ug Inhale 1 [facility] vers (SPIRIVA 5-04 capsule in ity o f WITH 00:00: the [place] HAND[facility]) 00 morning. Medi alise 18 mcg INHALE THE Branch inhalation CONTENTS OF 1 CAPSULE VIA INHALATION DEVICE DAILY DIRECTED albuterol 2022-0 Yes [id number] 2{puff} Inhale 2 [facility] 90 5-04 Puffs ity of mcg/actuati 00:00: every 6 [place] as on inhaler 00 (six) Medical hours as Branch needed for Wheezing or Shortness of Breath. albuterol 2022-0 Yes [id number] 2.5mg Inhale 3 [facility] 2.5 mg /3 5-04 mL every 4 ity of mL (0.083 00:00: (four) [place] %) 00 hours as Medical nebulizer needed for Bran ch solution Wheezing or Shortness of Breath. fluticasone 2023-0 Yes [id number] 2{puff} Inhale 2 [facility] propion-anjum 5-04 Puffs in ity of meteroL 00:00: the [place] (ADVAIR 00 morning Medical HFA) 115-21 and 2 Branch mcg/actuati Puffs in on inhaler the evening. tiotropium 2022-0 Yes 18ug Inhale 1 [facility] vers (SPIRIVA 5-04 capsule in ity o f WITH 00:00: the [place] HAND[facility]) 00 morning. Medi alise 18 mcg INHALE THE Branch inhalation CONTENTS OF 1 CAPSULE VIA INHALATION DEVICE DAILY DIRECTED albuterol 2023-0 Yes [id number] 2{puff} Inhale 2 [facility] 90 5-04 Puffs ity of mcg/actuati 00:00: every 6 [place] as on inhaler 00 (six) Medical hours as Branch needed for Wheezing or Shortness of Breath. albuterol 2022-0 Yes [id number] 2.5mg Inhale 3 [facility] 2.5 mg /3 5-04 mL every 4 ity of mL (0.083 00:00: (four) [place] %) 00 hours as Medical nebulizer needed for Bran ch solution Wheezing or Shortness of Breath. fluticasone 3-0 Yes [id number] 2{puff} Inhale 2 [facility] propion-anjum 5-04 Puffs in ity of meteroL 00:00: the [place] (ADVAIR 00 morning Medical HFA) 115-21 and 2 Branch mcg/actuati Puffs in on inhaler the evening. tiotropium 2022-0 Yes 18ug Inhale 1 [facility] vers (SPIRIVA 5-04 capsule in ity o f WITH 00:00: the [place] HAND[facility]) 00 morning. Medi alise 18 mcg INHALE THE Branch inhalation CONTENTS OF 1 CAPSULE VIA INHALATION DEVICE DAILY DIRECTED albuterol 2023-0 Yes [id number] 2{puff} Inhale 2 [facility] 90 5-04 Puffs ity of mcg/actuati 00:00: every 6 [place] as on inhaler 00 (six) Medical hours as Branch needed for Wheezing or Shortness of Breath. albuterol 3-0 Yes [id number] 2.5mg Inhale 3 [facility] 2.5 mg /3 5-04 mL every 4 ity of mL (0.083 00:00: (four) [place] %) 00 hours as Medical nebulizer needed for Bran ch solution Wheezing or Shortness of Breath. fluticasone 2023-0 Yes [id number] 2{puff} Inhale 2 [facility] propion-anjum 5-04 Puffs in ity of meteroL 00:00: the [place] (ADVAIR 00 morning Medical HFA) 115-21 and 2 Branch mcg/actuati Puffs in on inhaler the evening. tiotropium 2022-0 Yes 18ug Inhale 1 [facility] vers (SPIRIVA 5-04 capsule in ity o f WITH 00:00: the [place] HAND[facility]) 00 morning. Medi alise 18 mcg INHALE THE Branch inhalation CONTENTS OF 1 CAPSULE VIA INHALATION DEVICE DAILY DIRECTED albuterol 3-0 Yes [id number] 2{puff} Inhale 2 [facility] 90 5-04 Puffs ity of mcg/actuati 00:00: every 6 [place] as on inhaler 00 (six) Medical hours as Branch needed for Wheezing or Shortness of Breath. albuterol 2022-0 Yes [id number] 2.5mg Inhale 3 [facility] 2.5 mg /3 5-04 mL every 4 ity of mL (0.083 00:00: (four) [place] %) 00 hours as Medical nebulizer needed for Bran ch solution Wheezing or Shortness of Breath. fluticasone 3-0 Yes [id number] 2{puff} Inhale 2 [facility] propion-anjum 5-04 Puffs in ity of meteroL 00:00: the [place] (ADVAIR 00 morning Medical HFA) 115-21 and 2 Branch mcg/actuati Puffs in on inhaler the evening. tiotropium 3-0 Yes 18ug Inhale 1 [facility] vers (SPIRIVA 5-04 capsule in ity o f WITH 00:00: the [place] HAND[facility]) 00 morning. Medi alise 18 mcg INHALE THE Branch inhalation CONTENTS OF 1 CAPSULE VIA INHALATION DEVICE DAILY DIRECTED albuterol 2023-0 Yes [id number] 2{puff} Inhale 2 [facility] 90 5-04 Puffs ity of mcg/actuati 00:00: every 6 [place] as on inhaler 00 (six) Medical hours as Branch needed for Wheezing or Shortness of Breath. albuterol 3-0 Yes [id number] 2.5mg Inhale 3 [facility] 2.5 mg /3 5-04 mL every 4 ity of mL (0.083 00:00: (four) [place] %) 00 hours as Medical nebulizer needed for Bran ch solution Wheezing or Shortness of Breath. fluticasone 3-0 Yes [id number] 2{puff} Inhale 2 [facility] propion-anjum 5-04 Puffs in ity of meteroL 00:00: the [place] (ADVAIR 00 morning Medical HFA) 115-21 and 2 Branch mcg/actuati Puffs in on inhaler the evening. tiotropium 2022-0 Yes 18ug Inhale 1 [facility] vers (SPIRIVA 5-04 capsule in ity o f WITH 00:00: the [place] HAND[facility]) 00 morning. Medi alise 18 mcg INHALE THE Branch inhalation CONTENTS OF 1 CAPSULE VIA INHALATION DEVICE DAILY DIRECTED albuterol 2022-0 Yes [id number] 2{puff} Inhale 2 [facility] 90 5-04 Puffs ity of mcg/actuati 00:00: every 6 [place] as on inhaler 00 (six) Medical hours as Branch needed for Wheezing or Shortness of Breath. albuterol 2022-0 Yes [id number] 2.5mg Inhale 3 [facility] 2.5 mg /3 5-04 mL every 4 ity of mL (0.083 00:00: (four) [place] %) 00 hours as Medical nebulizer needed for Bran ch solution Wheezing or Shortness of Breath. fluticasone 2022-0 Yes [id number] 2{puff} Inhale 2 [facility] propion-anjum 5-04 Puffs in ity of meteroL 00:00: the [place] (ADVAIR 00 morning Medical HFA) 115-21 and 2 Branch mcg/actuati Puffs in on inhaler the evening. tiotropium 2022-0 Yes 18ug Inhale 1 [facility] vers (SPIRIVA 5-04 capsule in ity o f WITH 00:00: the [place] HAND[facility]) 00 morning. Medi alise 18 mcg INHALE THE Branch inhalation CONTENTS OF 1 CAPSULE VIA INHALATION DEVICE DAILY DIRECTED albuterol 2022-0 Yes [id number] 2{puff} Inhale 2 [facility] 90 5-04 Puffs ity of mcg/actuati 00:00: every 6 [place] as on inhaler 00 (six) Medical hours as Branch needed for Wheezing or Shortness of Breath. albuterol 2022-0 Yes [id number] 2.5mg Inhale 3 [facility] 2.5 mg /3 5-04 mL every 4 ity of mL (0.083 00:00: (four) [place] %) 00 hours as Medical nebulizer needed for Bran ch solution Wheezing or Shortness of Breath. fluticasone 2023-0 Yes [id number] 2{puff} Inhale 2 [facility] propion-anjum 5-04 Puffs in ity of meteroL 00:00: the [place] (ADVAIR 00 morning Medical HFA) 115-21 and 2 Branch mcg/actuati Puffs in on inhaler the evening. tiotropium 3-0 Yes 18ug Inhale 1 [facility] vers (SPIRIVA 5-04 capsule in ity o f WITH 00:00: the [place] HAND[facility]) 00 morning. Medi alise 18 mcg INHALE THE Branch inhalation CONTENTS OF 1 CAPSULE VIA INHALATION DEVICE DAILY DIRECTED albuterol 2023-0 Yes [id number] 2{puff} Inhale 2 [facility] 90 5-04 Puffs ity of mcg/actuati 00:00: every 6 [place] as on inhaler 00 (six) Medical hours as Branch needed for Wheezing or Shortness of Breath. albuterol 3-0 Yes [id number] 2.5mg Inhale 3 [facility] 2.5 mg /3 5-04 mL every 4 ity of mL (0.083 00:00: (four) [place] %) 00 hours as Medical nebulizer needed for Bran ch solution Wheezing or Shortness of Breath. fluticasone 3-0 Yes [id number] 2{puff} Inhale 2 [facility] propion-anjum 5-04 Puffs in ity of meteroL 00:00: the [place] (ADVAIR 00 morning Medical HFA) 115-21 and 2 Branch mcg/actuati Puffs in on inhaler the evening. tiotropium 3-0 Yes 18ug Inhale 1 [facility] vers (SPIRIVA 5-04 capsule in ity o f WITH 00:00: the [place] HAND[facility]) 00 morning. Medi alise 18 mcg INHALE THE Branch inhalation CONTENTS OF 1 CAPSULE VIA INHALATION DEVICE DAILY DIRECTED albuterol 2023-0 Yes [id number] 2{puff} Inhale 2 [facility] 90 5-04 Puffs ity of mcg/actuati 00:00: every 6 [place] as on inhaler 00 (six) Medical hours as Branch needed for Wheezing or Shortness of Breath. albuterol 2022-0 Yes [id number] 2.5mg Inhale 3 [facility] 2.5 mg /3 5-04 mL every 4 ity of mL (0.083 00:00: (four) [place] %) 00 hours as Medical nebulizer needed for Bran ch solution Wheezing or Shortness of Breath. fluticasone 2022-0 Yes [id number] 2{puff} Inhale 2 [facility] propion-anjum 5-04 Puffs in ity of meteroL 00:00: the [place] (ADVAIR 00 morning Medical HFA) 115-21 and 2 Branch mcg/actuati Puffs in on inhaler the evening. tiotropium 2022-0 Yes 18ug Inhale 1 [facility] vers (SPIRIVA 5-04 capsule in ity o f WITH 00:00: the [place] HAND[facility]) 00 morning. Medi alise 18 mcg INHALE THE Branch inhalation CONTENTS OF 1 CAPSULE VIA INHALATION DEVICE DAILY DIRECTED albuterol 2022-0 Yes [id number] 2{puff} Inhale 2 [facility] 90 5-04 Puffs ity of mcg/actuati 00:00: every 6 [place] as on inhaler 00 (six) Medical hours as Branch needed for Wheezing or Shortness of Breath. albuterol 2022-0 Yes [id number] 2.5mg Inhale 3 [facility] 2.5 mg /3 5-04 mL every 4 ity of mL (0.083 00:00: (four) [place] %) 00 hours as Medical nebulizer needed for Bran ch solution Wheezing or Shortness of Breath. fluticasone 2022-0 Yes [id number] 2{puff} Inhale 2 [facility] propion-anjum 5-04 Puffs in ity of meteroL 00:00: the [place] (ADVAIR 00 morning Medical HFA) 115-21 and 2 Branch mcg/actuati Puffs in on inhaler the evening. tiotropium 2022-0 Yes 18ug Inhale 1 [facility] vers (SPIRIVA 5-04 capsule in ity o f WITH 00:00: the [place] HAND[facility]) 00 morning. Medi alise 18 mcg INHALE THE Branch inhalation CONTENTS OF 1 CAPSULE VIA INHALATION DEVICE DAILY DIRECTED albuterol 2023-0 Yes [id number] 2{puff} Inhale 2 [facility] 90 5-04 Puffs ity of mcg/actuati 00:00: every 6 [place] as on inhaler 00 (six) Medical hours as Branch needed for Wheezing or Shortness of Breath. albuterol 0 Yes [id number] 2.5mg Inhale 3 [facility] 2.5 mg /3 5-04 mL every 4 ity of mL (0.083 00:00: (four) [place] %) 00 hours as Medical nebulizer needed for Bran ch solution Wheezing or Shortness of Breath. fluticasone 0 Yes [id number] 2{puff} Inhale 2 [facility] propion-anjum 5-04 Puffs in ity of meteroL 00:00: the [place] (ADVAIR 00 morning Medical HFA) 115-21 and 2 Branch mcg/actuati Puffs in on inhaler the evening. tiotropium Yes 18ug Inhale 1 [facility] vers (SPIRIVA 5-04 capsule in ity o f WITH 00:00: the [place] HAND[facility]) 00 morning. Medi alise 18 mcg INHALE THE Branch inhalation CONTENTS OF 1 CAPSULE VIA INHALATION DEVICE DAILY DIRECTED albuterol 2022-0 Yes [id number] 2{puff} Inhale 2 [facility] 90 5-04 Puffs ity of mcg/actuati 00:00: every 6 [place] as on inhaler 00 (six) Medical hours as Branch needed for Wheezing or Shortness of Breath. albuterol 0 Yes [id number] 2.5mg Inhale 3 [facility] 2.5 mg /3 5-04 mL every 4 ity of mL (0.083 00:00: (four) [place] %) 00 hours as Medical nebulizer needed for Bran ch solution Wheezing or Shortness of Breath. fluticasone 0 Yes [id number] 2{puff} Inhale 2 [facility] propion-anjum 5-04 Puffs in ity of meteroL 00:00: the [place] (ADVAIR 00 morning Medical HFA) 115-21 and 2 Branch mcg/actuati Puffs in on inhaler the evening. tiotropium 0 Yes 18ug Inhale 1 [facility] vers (SPIRIVA 5-04 capsule in ity o f WITH 00:00: the [place] HAND[facility]) 00 morning. Medi alise 18 mcg INHALE THE Branch inhalation CONTENTS OF 1 CAPSULE VIA INHALATION DEVICE DAILY DIRECTED albuterol 2022-0 Yes [id number] 2{puff} Inhale 2 [facility] 90 5-04 Puffs ity of mcg/actuati 00:00: every 6 [place] as on inhaler 00 (six) Medical hours as Branch needed for Wheezing or Shortness of Breath. albuterol 2022-0 Yes [id number] 2.5mg Inhale 3 [facility] 2.5 mg /3 5-04 mL every 4 ity of mL (0.083 00:00: (four) [place] %) 00 hours as Medical nebulizer needed for Bran ch solution Wheezing or Shortness of Breath. fluticasone 2022-0 Yes [id number] 2{puff} Inhale 2 [facility] propion-anjum 5-04 Puffs in ity of meteroL 00:00: the [place] (ADVAIR 00 morning Medical HFA) 115-21 and 2 Branch mcg/actuati Puffs in on inhaler the evening. tiotropium 0 Yes 18ug Inhale 1 Uni vers (SPIRIVA 5-04 capsule in ity o f WITH 00:00: the [place] HANDIHALER) 00 morning. Medi alise 18 mcg INHALE THE Branch inhalation CONTENTS OF 1 CAPSULE VIA INHALATION DEVICE DAILY DIRECTED albuterol 2022-0 Yes [id number] 2{puff} Inhale 2 [facility] 90 5-04 Puffs ity of mcg/actuati 00:00: every 6 [place] as on inhaler 00 (six) Medical hours as Branch needed for Wheezing or Shortness of Breath. albuterol 2022-0 Yes [id number] 2.5mg Inhale 3 [facility] 2.5 mg /3 5-04 mL every 4 ity of mL (0.083 00:00: (four) [place] %) 00 hours as Medical nebulizer needed for Bran ch solution Wheezing or Shortness of Breath. fluticasone 2022-0 Yes [id number] 2{puff} Inhale 2 [facility] propion-anjum 5-04 Puffs in ity of meteroL 00:00: the [place] (ADVAIR 00 morning Medical HFA) 115-21 and 2 Branch mcg/actuati Puffs in on inhaler the evening. tiotropium 2022-0 Yes 18ug Inhale 1 Uni vers (SPIRIVA 5-04 capsule in ity o f WITH 00:00: the [place] HANDIHALER) 00 morning. Medi alise 18 mcg INHALE THE Branch inhalation CONTENTS OF 1 CAPSULE VIA INHALATION DEVICE DAILY DIRECTED albuterol 2023-0 Yes [id number] 2{puff} Inhale 2 [facility] 90 5-04 Puffs ity of mcg/actuati 00:00: every 6 [place] as on inhaler 00 (six) Medical hours as Branch needed for Wheezing or Shortness of Breath. fluticasone 3-0 Yes [id number] 2{puff} Inhale 2 [facility] propion-anjum 5-04 Puffs in ity of meteroL 00:00: the [place] (ADVAIR 00 morning Medical HFA) 115-21 and 2 Branch mcg/actuati Puffs in on inhaler the evening. tiotropium 2022-0 Yes 18ug Inhale 1 Uni vers (SPIRIVA 5-04 capsule in ity o f WITH 00:00: the [place] HANDIHALER) 00 morning. Medi alise 18 mcg INHALE THE Branch inhalation CONTENTS OF 1 CAPSULE VIA INHALATION DEVICE DAILY DIRECTED albuterol 2022-0 Yes [id number] 2{puff} Inhale 2 [facility] 90 5-04 Puffs ity of mcg/actuati 00:00: every 6 [place] as on inhaler 00 (six) Medical hours as Branch needed for Wheezing or Shortness of Breath. fluticasone 2022-0 Yes [id number] 2{puff} Inhale 2 [facility] propion-anjum 5-04 Puffs in ity of meteroL 00:00: the [place] (ADVAIR 00 morning Medical HFA) 115-21 and 2 Branch mcg/actuati Puffs in on inhaler the evening. tiotropium 2022-0 Yes 18ug Inhale 1 Uni vers (SPIRIVA 5-04 capsule in ity o f WITH 00:00: the [place] HANDIHALER) 00 morning. Medi alise 18 mcg INHALE THE Branch inhalation CONTENTS OF 1 CAPSULE VIA INHALATION DEVICE DAILY DIRECTED albuterol 3-0 Yes [id number] 2{puff} Inhale 2 [facility] 90 5-04 Puffs ity of mcg/actuati 00:00: every 6 [place] as on inhaler 00 (six) Medical hours as Branch needed for Wheezing or Shortness of Breath. fluticasone 3-0 Yes [id number] 2{puff} Inhale 2 [facility] propion-anjum 5-04 Puffs in ity of meteroL 00:00: the [place] (ADVAIR 00 morning Medical HFA) 115-21 and 2 Branch mcg/actuati Puffs in on inhaler the evening. tiotropium 3-0 Yes 18ug Inhale 1 [facility] vers (SPIRIVA 5-04 capsule in ity o f WITH 00:00: the [place] HANDIHALER) 00 morning. Medi alise 18 mcg INHALE THE Branch inhalation CONTENTS OF 1 CAPSULE VIA INHALATION DEVICE DAILY DIRECTED albuterol 2023-0 Yes [id number] 2{puff} Inhale 2 [facility] 90 5-04 Puffs ity of mcg/actuati 00:00: every 6 [place] as on inhaler 00 (six) Medical hours as Branch needed for Wheezing or Shortness of Breath. fluticasone 2023-0 Yes [id number] 2{puff} Inhale 2 [facility] propion-anjum 5-04 Puffs in ity of meteroL 00:00: the [place] (ADVAIR 00 morning Medical HFA) 115-21 and 2 Branch mcg/actuati Puffs in on inhaler the evening. tiotropium 2023-0 Yes 18ug Inhale 1 Uni vers (SPIRIVA 5-04 capsule in ity o f WITH 00:00: the [place] HANDIHALER) 00 morning. Medi alise 18 mcg INHALE THE Branch inhalation CONTENTS OF 1 CAPSULE VIA INHALATION DEVICE DAILY DIRECTED albuterol 3-0 Yes [id number] 2{puff} Inhale 2 [facility] 90 5-04 Puffs ity of mcg/actuati 00:00: every 6 [place] as on inhaler 00 (six) Medical hours as Branch needed for Wheezing or Shortness of Breath. fluticasone 3-0 Yes [id number] 2{puff} Inhale 2 [facility] propion-anjum 5-04 Puffs in ity of meteroL 00:00: the [place] (ADVAIR 00 morning Medical HFA) 115-21 and 2 Branch mcg/actuati Puffs in on inhaler the evening. tiotropium 2023-0 Yes 18ug Inhale 1 Uni vers (SPIRIVA 5-04 capsule in ity o f WITH 00:00: the [place] HANDIHALER) 00 morning. Medi alise 18 mcg INHALE THE Branch inhalation CONTENTS OF 1 CAPSULE VIA INHALATION DEVICE DAILY DIRECTED albuterol 2023-0 Yes [id number] 2{puff} Inhale 2 [facility] 90 5-04 Puffs ity of mcg/actuati 00:00: every 6 [place] as on inhaler 00 (six) Medical hours as Branch needed for Wheezing or Shortness of Breath. fluticasone 3-0 Yes [id number] 2{puff} Inhale 2 [facility] propion-anjum 5-04 Puffs in ity of meteroL 00:00: the [place] (ADVAIR 00 morning Medical HFA) 115-21 and 2 Branch mcg/actuati Puffs in on inhaler the evening. tiotropium 2022-0 Yes 18ug Inhale 1 Uni vers (SPIRIVA 5-04 capsule in ity o f WITH 00:00: the [place] HANDIHALER) 00 morning. Medi alise 18 mcg INHALE THE Branch inhalation CONTENTS OF 1 CAPSULE VIA INHALATION DEVICE DAILY DIRECTED albuterol 3-0 Yes [id number] 2{puff} Inhale 2 [facility] 90 5-04 Puffs ity of mcg/actuati 00:00: every 6 [place] as on inhaler 00 (six) Medical hours as Branch needed for Wheezing or Shortness of Breath. fluticasone 2022-0 Yes [id number] 2{puff} Inhale 2 [facility] propion-anjum 5-04 Puffs in ity of meteroL 00:00: the [place] (ADVAIR 00 morning Medical HFA) 115-21 and 2 Branch mcg/actuati Puffs in on inhaler the evening. tiotropium 2022-0 Yes 18ug Inhale 1 Uni vers (SPIRIVA 5-04 capsule in ity o f WITH 00:00: the [place] HANDIHALER) 00 morning. Medi alise 18 mcg INHALE THE Branch inhalation CONTENTS OF 1 CAPSULE VIA INHALATION DEVICE DAILY DIRECTED albuterol 3-0 Yes [id number] 2{puff} Inhale 2 [facility] 90 5-04 Puffs ity of mcg/actuati 00:00: every 6 [place] as on inhaler 00 (six) Medical hours as Branch needed for Wheezing or Shortness of Breath. fluticasone 2023-0 Yes [id number] 2{puff} Inhale 2 [facility] propion-anjum 5-04 Puffs in ity of meteroL 00:00: the [place] (ADVAIR 00 morning Medical HFA) 115-21 and 2 Branch mcg/actuati Puffs in on inhaler the evening. tiotropium 2023-0 Yes 18ug Inhale 1 Uni vers (SPIRIVA 5-04 capsule in ity o f WITH 00:00: the [place] HANDIHALER) 00 morning. Medi alise 18 mcg INHALE THE Branch inhalation CONTENTS OF 1 CAPSULE VIA INHALATION DEVICE DAILY DIRECTED albuterol 2022-0 Yes [id number] 2{puff} Inhale 2 [facility] 90 5-04 Puffs ity of mcg/actuati 00:00: every 6 [place] as on inhaler 00 (six) Medical hours as Branch needed for Wheezing or Shortness of Breath. fluticasone 2022-0 Yes [id number] 2{puff} Inhale 2 [facility] propion-anjum 5-04 Puffs in ity of meteroL 00:00: the [place] (ADVAIR 00 morning Medical HFA) 115-21 and 2 Branch mcg/actuati Puffs in on inhaler the evening. tiotropium 2022-0 Yes 18ug Inhale 1 Uni vers (SPIRIVA 5-04 capsule in ity o f WITH 00:00: the [place] HANDIHALER) 00 morning. Medi alise 18 mcg INHALE THE Branch inhalation CONTENTS OF 1 CAPSULE VIA INHALATION DEVICE DAILY DIRECTED albuterol 2022-0 Yes [id number] 2{puff} Inhale 2 [facility] 90 5-04 Puffs ity of mcg/actuati 00:00: every 6 [place] as on inhaler 00 (six) Medical hours as Branch needed for Wheezing or Shortness of Breath. fluticasone 2022-0 Yes [id number] 2{puff} Inhale 2 [facility] propion-anjum 5-04 Puffs in ity of meteroL 00:00: the [place] (ADVAIR 00 morning Medical HFA) 115-21 and 2 Branch mcg/actuati Puffs in on inhaler the evening. tiotropium 2022-0 Yes 18ug Inhale 1 Uni vers (SPIRIVA 5-04 capsule in ity o f WITH 00:00: the [place] HANDIHALER) 00 morning. Medi alise 18 mcg INHALE THE Branch inhalation CONTENTS OF 1 CAPSULE VIA INHALATION DEVICE DAILY DIRECTED albuterol 2022-0 Yes [id number] 2{puff} Inhale 2 [facility] 90 5-04 Puffs ity of mcg/actuati 00:00: every 6 [place] as on inhaler 00 (six) Medical hours as Branch needed for Wheezing or Shortness of Breath. fluticasone 2022-0 Yes [id number] 2{puff} Inhale 2 [facility] propion-anjum 5-04 Puffs in ity of meteroL 00:00: the [place] (ADVAIR 00 morning Medical HFA) 115-21 and 2 Branch mcg/actuati Puffs in on inhaler the evening. tiotropium 2023-0 Yes 18ug Inhale 1 Uni vers (SPIRIVA 5-04 capsule in ity o f WITH 00:00: the [place] HANDIHALER) 00 morning. Medi alise 18 mcg INHALE THE Branch inhalation CONTENTS OF 1 CAPSULE VIA INHALATION DEVICE DAILY DIRECTED albuterol 2023-0 Yes [id number] 2{puff} Inhale 2 [facility] 90 5-04 Puffs ity of mcg/actuati 00:00: every 6 [place] as on inhaler 00 (six) Medical hours as Branch needed for Wheezing or Shortness of Breath. fluticasone 3-0 Yes [id number] 2{puff} Inhale 2 [facility] propion-anjum 5-04 Puffs in ity of meteroL 00:00: the [place] (ADVAIR morning Medical HFA) 115-21 and 2 Branch mcg/actuati Puffs in on inhaler the evening. tiotropium 3-0 Yes 18ug Inhale 1 [facility] vers (SPIRIVA 5-04 capsule in ity o f WITH 00:00: the [place] HANDIHALER) 00 morning. Medi alise 18 mcg INHALE THE Branch inhalation CONTENTS OF 1 CAPSULE VIA INHALATION DEVICE DAILY DIRECTED albuterol 3-0 Yes [id number] 2{puff} Inhale 2 [facility] 90 5-04 Puffs ity of mcg/actuati 00:00: every 6 [place] as on inhaler 00 (six) Medical hours as Branch needed for Wheezing or Shortness of Breath. fluticasone 2023-0 Yes [id number] 2{puff} Inhale 2 [facility] propion-anjum 5-04 Puffs in ity of meteroL 00:00: the [place] (ADVAIR 00 morning Medical HFA) 115-21 and 2 Branch mcg/actuati Puffs in on inhaler the evening. tiotropium 2023-0 Yes 18ug Inhale 1 Uni vers (SPIRIVA 5-04 capsule in ity o f WITH 00:00: the [place] HANDIHALER) 00 morning. Medi alise 18 mcg INHALE THE Branch inhalation CONTENTS OF 1 CAPSULE VIA INHALATION DEVICE DAILY DIRECTED albuterol 3-0 Yes [id number] 2{puff} Inhale 2 [facility] 90 5-04 Puffs ity of mcg/actuati 00:00: every 6 [place] as on inhaler 00 (six) Medical hours as Branch needed for Wheezing or Shortness of Breath. fluticasone 2022-0 Yes [id number] 2{puff} Inhale 2 [facility] propion-anjum 5-04 Puffs in ity of meteroL 00:00: the [place] (ADVAIR morning Medical HFA) 115-21 and 2 Branch mcg/actuati Puffs in on inhaler the evening. tiotropium 2022-0 Yes 18ug Inhale 1 Uni vers (SPIRIVA 5-04 capsule in ity o f WITH 00:00: the [place] HANDIHALER) 00 morning. Medi alise 18 mcg INHALE THE Branch inhalation CONTENTS OF 1 CAPSULE VIA INHALATION DEVICE DAILY DIRECTED albuterol 2022-0 Yes [id number] 2{puff} Inhale 2 [facility] 90 5-04 Puffs ity of mcg/actuati 00:00: every 6 [place] as on inhaler 00 (six) Medical hours as Branch needed for Wheezing or Shortness of Breath. fluticasone 2022-0 Yes [id number] 2{puff} Inhale 2 [facility] propion-anjum 5-04 Puffs in ity of meteroL 00:00: the [place] (ADVAIR morning Medical HFA) 115-21 and 2 Branch mcg/actuati Puffs in on inhaler the evening. tiotropium 2022-0 Yes 18ug Inhale 1 Uni vers (SPIRIVA 5-04 capsule in ity o f WITH 00:00: the [place] HANDIHALER) 00 morning. Medi alise 18 mcg INHALE THE Branch inhalation CONTENTS OF 1 CAPSULE VIA INHALATION DEVICE DAILY DIRECTED albuterol 2022-0 Yes [id number] 2{puff} Inhale 2 [facility] 90 5-04 Puffs ity of mcg/actuati 00:00: every 6 [place] as on inhaler 00 (six) Medical hours as Branch needed for Wheezing or Shortness of Breath. fluticasone 2023-0 Yes [id number] 2{puff} Inhale 2 [facility] propion-anjum 5-04 Puffs in ity of meteroL 00:00: the [place] (ADVAIR 00 morning Medical HFA) 115-21 and 2 Branch mcg/actuati Puffs in on inhaler the evening. tiotropium 3-0 Yes 18ug Inhale 1 Uni vers (SPIRIVA 5-04 capsule in ity o f WITH 00:00: the [place] HANDIHALER) 00 morning. Medi alise 18 mcg INHALE THE Branch inhalation CONTENTS OF 1 CAPSULE VIA INHALATION DEVICE DAILY DIRECTED albuterol 3-0 Yes [id number] 2{puff} Inhale 2 [facility] 90 5-04 Puffs ity of mcg/actuati 00:00: every 6 [place] as on inhaler 00 (six) Medical hours as Branch needed for Wheezing or Shortness of Breath. fluticasone 2022-0 Yes [id number] 2{puff} Inhale 2 [facility] propion-anjum 5-04 Puffs in ity of meteroL 00:00: the [place] (ADVAIR 00 morning Medical HFA) 115-21 and 2 Branch mcg/actuati Puffs in on inhaler the evening. tiotropium 2022-0 Yes 18ug Inhale 1 Uni vers (SPIRIVA 5-04 capsule in ity o f WITH 00:00: the [place] HANDIHALER) 00 morning. Medi alise 18 mcg INHALE THE Branch inhalation CONTENTS OF 1 CAPSULE VIA INHALATION DEVICE DAILY DIRECTED albuterol 3-0 Yes [id number] 2{puff} Inhale 2 [facility] 90 5-04 Puffs ity of mcg/actuati 00:00: every 6 [place] as on inhaler 00 (six) Medical hours as Branch needed for Wheezing or Shortness of Breath. fluticasone 2022-0 Yes [id number] 2{puff} Inhale 2 [facility] propion-anjum 5-04 Puffs in ity of meteroL 00:00: the [place] (ADVAIR 00 morning Medical HFA) 115-21 and 2 Branch mcg/actuati Puffs in on inhaler the evening. tiotropium 3-0 Yes 18ug Inhale 1 Uni vers (SPIRIVA 5-04 capsule in ity o f WITH 00:00: the [place] HANDIHALER) 00 morning. Medi alise 18 mcg INHALE THE Branch inhalation CONTENTS OF 1 CAPSULE VIA INHALATION DEVICE DAILY DIRECTED albuterol 2023-0 Yes [id number] 2{puff} Inhale 2 [facility] 90 5-04 Puffs ity of mcg/actuati 00:00: every 6 [place] as on inhaler 00 (six) Medical hours as Branch needed for Wheezing or Shortness of Breath. albuterol 2022- No [id number] 2.5mg Inhale 3 [facility] 2.5 mg /3 5-04 06-07 mL every 4 ity of mL (0.083 00:00: 00:00 (four) [place] %) 00 :00 hours as Medical nebulizer needed for Bran ch solution Wheezing or Shortness of Breath. LORazepam 2022- No .5mg 0.5 mg, Univ ers (ATIVAN) 10-07-30 Slow IV ity of injection 19:45: 20:11 Push, [place] 0.5 mg 00 :00 ONCE, 1 Medical dose, On Branch [place] 10/07/22 at 1445, STAT ondansetron 2022- No 4mg 4 mg, Slow Univers (ZOFRAN 10-0730 IV Push, ity of (PF)) 18:45: 18:40 ONCE, 1 [place] injection 4 00 :00 dose, On Medi alise mg [place] 10/07/22 at 1345, BAHMAN FENTanyl PF 2022- No 25ug 25 mcg, Un miracle (SUBLIMAZE 10-07-30 Slow IV ity o f (PF)) 18:45: 18:50 Push, [place] injection 00 :00 ONCE, 1 Medical 25 mcg dose, On Branch [place] 10/07/22 at 1345, STAT hydralAZINE 2022- No 10mg 10 mg, Uni vers (APRESOLINE 10-07-30 Slow IV ity of ) injection 18:30: 18:49 [place] 10 mg 00 :00 ONCE, 1 Medical dose, On Branch [place] 10/07/22 at 1330, [place]AH[place] gabapentin 2022-0 Yes [id number] 300mg Take 1 [facility] 300 mg 4-24 capsule by ity of capsule 00:00: mouth in [place] [address] the Medical morning Branch and 1 capsule in the evening. gabapentin 2022-0 Yes [id number] 300mg Take 1 [facility] 300 mg 4-24 capsule by ity of capsule 00:00: mouth in [place] 00 the Medical morning Branch and 1 capsule in the evening. gabapentin 2023-0 Yes [id number] 300mg Take 1 [facility] 300 mg 4-24 capsule by ity of capsule 00:00: mouth in [place] [address] the Medical morning Branch and 1 capsule in the evening. gabapentin 2023-0 Yes [id number] 300mg Take 1 [facility] 300 mg 4-24 capsule by ity of capsule 00:00: mouth in [place] [address] the Medical morning Branch and 1 capsule in the evening. gabapentin 2023-0 Yes [id number] 300mg Take 1 [facility] 300 mg 4-24 capsule by ity of capsule 00:00: mouth in [place] [address] the Medical morning Branch and 1 capsule in the evening. gabapentin 2023-0 Yes [id number] 300mg Take 1 [facility] 300 mg 4-24 capsule by ity of capsule 00:00: mouth in [place] [address] the Medical morning [place] and 1 capsule in the evening. gabapentin 2023-0 Yes [id number] 300mg Take 1 [facility] 300 mg 4-24 capsule by ity of capsule 00:00: mouth in [address] Medical morning [place] and 1 capsule in the evening. gabapentin 2023-0 Yes [id number] 300mg Take 1 [facility] 300 mg 4-24 capsule by ity of capsule 00:00: mouth in [address] Medical morning [place] and 1 capsule in the evening. gabapentin 2023-0 Yes [id number] 300mg Take 1 [facility] 300 mg 4-24 capsule by ity of capsule 00:00: mouth in [address] Medical morning [place] and 1 capsule in the evening. gabapentin 2023-0 Yes [id number] 300mg Take 1 [facility] 300 mg 4-24 capsule by ity of capsule 00:00: mouth in [address] Medical morning [place] and 1 capsule in the evening. gabapentin 2023-0 Yes [id number] 300mg Take 1 [facility] 300 mg 4-24 capsule by ity of capsule 00:00: mouth in [address] Medical morning Branch and 1 capsule in the evening. gabapentin 2023-0 Yes [id number] 300mg Take 1 [facility] 300 mg 4-24 capsule by ity of capsule 00:00: mouth in [address] Medical morning [place] and 1 capsule in the evening. gabapentin 2023-0 Yes [id number] 300mg Take 1 [facility] 300 mg 4-24 capsule by ity of capsule 00:00: mouth in [address] Medical morning [place] and 1 capsule in the evening. gabapentin 2023-0 Yes [id number] 300mg Take 1 [facility] 300 mg 4-24 capsule by ity of capsule 00:00: mouth in [address] Medical morning [place] and 1 capsule in the evening. gabapentin 2023-0 Yes [id number] 300mg Take 1 [facility] 300 mg 4-24 capsule by ity of capsule 00:00: mouth in [address] morning [place] and 1 capsule in the evening. gabapentin 2023-0 Yes [id number] 300mg Take 1 [facility] 300 mg 4-24 capsule by ity of capsule 00:00: mouth in [address] Medical morning [place] and 1 capsule in the evening. gabapentin 2023-0 Yes [id number] 300mg Take 1 [facility] 300 mg 4-24 capsule by ity of capsule 00:00: mouth in [address] morning [place] and 1 capsule in the evening. gabapentin 2023-0 Yes [id number] 300mg Take 1 [facility] 300 mg 4-24 capsule by ity of capsule 00:00: mouth in [address] morning [place] and 1 capsule in the evening. gabapentin 2023-0 Yes [id number] 300mg Take 1 [facility] 300 mg 4-24 capsule by ity of capsule 00:00: mouth in [address] morning [place] and 1 capsule in the evening. gabapentin 2023-0 Yes [id number] 300mg Take 1 [facility] 300 mg 4-24 capsule by ity of capsule 00:00: mouth in [address] morning [place] and 1 capsule in the evening. gabapentin 2023-0 Yes [id number] 300mg Take 1 [facility] 300 mg 4-24 capsule by ity of capsule 00:00: mouth in [address] morning [place] and 1 capsule in the evening. gabapentin 2023-0 Yes [id number] 300mg Take 1 [facility] 300 mg 4-24 capsule by ity of capsule 00:00: mouth in [address] morning [place] and 1 capsule in the evening. gabapentin 2023-0 Yes [id number] 300mg Take 1 [facility] 300 mg 4-24 capsule by ity of capsule 00:00: mouth in [address] morning [place] and 1 capsule in the evening. gabapentin 2023-0 Yes [id number] 300mg Take 1 [facility] 300 mg 4-24 capsule by ity of capsule 00:00: mouth in [address] morning [place] and 1 capsule in the evening. gabapentin 2023-0 Yes [id number] 300mg Take 1 [facility] 300 mg 4-24 capsule by ity of capsule 00:00: mouth in [address] Medical morning [place] and 1 capsule in the evening. gabapentin 2023-0 Yes [id number] 300mg Take 1 [facility] 300 mg 4-24 capsule by ity of capsule 00:00: mouth in [address] morning [place] and 1 capsule in the evening. gabapentin 2023-0 Yes [id number] 300mg Take 1 [facility] 300 mg 4-24 capsule by ity of capsule 00:00: mouth in [address] morning [place] and 1 capsule in the evening. gabapentin 2023-0 Yes [id number] 300mg Take 1 [facility] 300 mg 4-24 capsule by ity of capsule 00:00: mouth in [address] morning [place] and 1 capsule in the evening. gabapentin 2023-0 Yes [id number] 300mg Take 1 [facility] 300 mg 4-24 capsule by ity of capsule 00:00: mouth in [address] morning [place] and 1 capsule in the evening. gabapentin 2023-0 Yes [id number] 300mg Take 1 [facility] 300 mg 4-24 capsule by ity of capsule 00:00: mouth in [address] morning [place] and 1 capsule in the evening. gabapentin 2023-0 Yes [id number] 300mg Take 1 [facility] 300 mg 4-24 capsule by ity of capsule 00:00: mouth in [address] morning [place] and 1 capsule in the evening. gabapentin 2023-0 Yes [id number] 300mg Take 1 [facility] 300 mg 4-24 capsule by ity of capsule 00:00: mouth in [address] morning [place] and 1 capsule in the evening. gabapentin 2023-0 Yes [id number] 300mg Take 1 [facility] 300 mg 4-24 capsule by ity of capsule 00:00: mouth in [address] morning [place] and 1 capsule in the evening. gabapentin 2023-0 Yes [id number] 300mg Take 1 [facility] 300 mg 4-24 capsule by ity of capsule 00:00: mouth in [address] morning [place] and 1 capsule in the evening. gabapentin 2023-0 Yes [id number] 300mg Take 1 [facility] 300 mg 4-24 capsule by ity of capsule 00:00: mouth in [address] morning [place] and 1 capsule in the evening. gabapentin 2023-0 Yes [id number] 300mg Take 1 [facility] 300 mg 4-24 capsule by ity of capsule 00:00: mouth in [address] Medical morning [place] and 1 capsule in the evening. gabapentin 2023-0 Yes [id number] 300mg Take 1 [facility] 300 mg 4-24 capsule by ity of capsule 00:00: mouth in [address] Medical morning [place] and 1 capsule in the evening. gabapentin 2023-0 Yes [id number] 300mg Take 1 [facility] 300 mg 4-24 capsule by ity of capsule 00:00: mouth in [address] Medical morning [place] and 1 capsule in the evening. gabapentin 2023-0 Yes [id number] 300mg Take 1 [facility] 300 mg 4-24 capsule by ity of capsule 00:00: mouth in [address] morning [place] and 1 capsule in the evening. gabapentin 2023-0 Yes [id number] 300mg Take 1 [facility] 300 mg 4-24 capsule by ity of capsule 00:00: mouth in [address] morning [place] and 1 capsule in the evening. gabapentin 2023-0 Yes [id number] 300mg Take 1 [facility] 300 mg 4-24 capsule by ity of capsule 00:00: mouth in [address] morning [place] and 1 capsule in the evening. gabapentin 2023-0 Yes [id number] 300mg Take 1 [facility] 300 mg 4-24 capsule by ity of capsule 00:00: mouth in [address] morning [place] and 1 capsule in the evening. gabapentin 2023-0 Yes [id number] 300mg Take 1 [facility] 300 mg 4-24 capsule by ity of capsule 00:00: mouth in [address] morning [place] and 1 capsule in the evening. gabapentin 2023-0 Yes [id number] 300mg Take 1 [facility] 300 mg 4-24 capsule by ity of capsule 00:00: mouth in [address] morning [place] and 1 capsule in the evening. gabapentin 2023-0 Yes [id number] 300mg Take 1 [facility] 300 mg 4-24 capsule by ity of capsule 00:00: mouth in [address] morning [place] and 1 capsule in the evening. gabapentin 2023-0 Yes [id number] 300mg Take 1 [facility] 300 mg 4-24 capsule by ity of capsule 00:00: mouth in [address] morning [place] and 1 capsule in the evening. gabapentin 2023-0 Yes [id number] 300mg Take 1 [facility] 300 mg 4-24 capsule by ity of capsule 00:00: mouth in [place] [address] the Medical morning Branch and 1 capsule in the evening. gabapentin 2023-0 Yes [id number] 300mg Take 1 [facility] 300 mg 4-24 capsule by ity of capsule 00:00: mouth in [place] [address] [facility] morning [place] and 1 capsule in the evening. gabapentin 2023-0 Yes [id number] 300mg Take 1 [facility] 300 mg 4-24 capsule by ity of capsule 00:00: mouth in [place] [address] the Medical morning Branch and 1 capsule in the evening. gabapentin 2023-0 Yes [id number] 300mg Take 1 [facility] 300 mg 4-24 capsule by ity of capsule 00:00: mouth in [address] Medical morning Branch and 1 capsule in the evening. gabapentin 2023-0 Yes [id number] 300mg Take 1 [facility] 300 mg 4-24 capsule by ity of capsule 00:00: mouth in [address] morning [place] and 1 capsule in the evening. gabapentin 2023-0 Yes [id number] 300mg Take 1 [facility] 300 mg 4-24 capsule by ity of capsule 00:00: mouth in [address] morning [place] and 1 capsule in the evening. gabapentin 2023-0 Yes [id number] 300mg Take 1 [facility] 300 mg 4-24 capsule by ity of capsule 00:00: mouth in [address] morning [place] and 1 capsule in the evening. gabapentin 2023-0 Yes [id number] 300mg Take 1 [facility] 300 mg 4-24 capsule by ity of capsule 00:00: mouth in [address] morning [place] and 1 capsule in the evening. gabapentin 2023-0 Yes [id number] 300mg Take 1 [facility] 300 mg 4-24 capsule by ity of capsule 00:00: mouth in [address] morning [place] and 1 capsule in the evening. gabapentin 2023-0 Yes [id number] 300mg Take 1 [facility] 300 mg 4-24 capsule by ity of capsule 00:00: mouth in [address] morning [place] and 1 capsule in the evening. gabapentin 2023-0 Yes [id number] 300mg Take 1 [facility] 300 mg 4-24 capsule by ity of capsule 00:00: mouth in [address] morning [place] and 1 capsule in the evening. gabapentin 2023-0 Yes [id number] 300mg Take 1 [facility] 300 mg 4-24 capsule by ity of capsule 00:00: mouth in [place] 00 the Medical morning Branch and 1 capsule in the evening. gabapentin 2023-0 Yes [id number] 300mg Take 1 [facility] 300 mg 4-24 capsule by ity of capsule 00:00: mouth in [place] [address] the Medical morning [place] and 1 capsule in the evening. gabapentin 2023-0 Yes [id number] 300mg Take 1 [facility] 300 mg 4-24 capsule by ity of capsule 00:00: mouth in [place] [address] the Medical morning [place] and 1 capsule in the evening. gabapentin 2023-0 Yes [id number] 300mg Take 1 [facility] 300 mg 4-24 capsule by ity of capsule 00:00: mouth in [place] [address] the Medical morning [place] and 1 capsule in the evening. gabapentin 2023-0 Yes [id number] 300mg Take 1 [facility] 300 mg 4-24 capsule by ity of capsule 00:00: mouth in [place] [address] the [facility] morning [place] and 1 capsule in the evening. gabapentin 2023-0 Yes [id number] 300mg Take 1 [facility] 300 mg 4-24 capsule by ity of capsule 00:00: mouth in [place] [address] the [facility] morning [place] and 1 capsule in the evening. gabapentin 2023-0 Yes [id number] 300mg Take 1 [facility] 300 mg 4-24 capsule by ity of capsule 00:00: mouth in [place] [address] the [facility] morning [place] and 1 capsule in the evening. gabapentin 2023-0 Yes [id number] 300mg Take 1 [facility] 300 mg 4-24 capsule by ity of capsule 00:00: mouth in [place] [address] the [facility] morning [place] and 1 capsule in the evening. gabapentin 2023-0 Yes [id number] 300mg Take 1 [facility] 300 mg 4-24 capsule by ity of capsule 00:00: mouth in [address] morning [place] and 1 capsule in the evening. gabapentin 2023-0 Yes [id number] 300mg Take 1 [facility] 300 mg 4-24 capsule by ity of capsule 00:00: mouth in [address] morning [place] and 1 capsule in the evening. warfarin 5 2023-0 Yes [id number] Take 5 mg [facility] mg tablet 4-19 on five ity of 00:00: days a [place] week and Medical 2.5 mg on Branch two days a week warfarin 5 2023-0 Yes [id number] Take 5 mg [facility] mg tablet 4-19 on five ity of 00:00: days a [place] week and Medical 2.5 mg on Branch two days a week warfarin 5 2022-0 Yes [id number] Take 5 mg [facility] mg tablet 4-19 on five ity of 00:00: days a week and Medical 2.5 mg on Branch two days a week warfarin 5 2022-0 Yes [id number] Take 5 mg [facility] mg tablet 4-19 on five ity of 00:00: days a and Medical 2.5 mg on Branch two days a week warfarin 5 2022-0 Yes [id number] Take 5 mg [facility] mg tablet 4-19 on five ity of 00:00: days a and Medical 2.5 mg on Branch two days a week warfarin 5 2022-0 Yes [id number] Take 5 mg [facility] mg tablet 4-19 on five ity of 00:00: days and Medical 2.5 mg on Branch two days a week warfarin 5 2022-0 Yes [id number] Take 5 mg [facility] mg tablet 4-19 on five ity of 00:00: days and Medical 2.5 mg on Branch two days a week warfarin 5 2022-0 Yes [id number] Take 5 mg [facility] mg tablet 4-19 on five ity of 00:00: days a and Medical 2.5 mg on Branch two days a week warfarin 5 2022-0 Yes [id number] Take 5 mg [facility] mg tablet 4-19 on five ity of 00:00: days a and Medical 2.5 mg on Branch two days a week warfarin 5 2022-0 Yes [id number] Take 5 mg [facility] mg tablet 4-19 on five ity of 00:00: days a and Medical 2.5 mg on Branch two days a week warfarin 5 2022-0 Yes [id number] Take 5 mg [facility] mg tablet 4-19 on five ity of 00:00: days a and Medical 2.5 mg on Branch two days a week warfarin 5 2022-0 Yes [id number] Take 5 mg [facility] mg tablet 4-19 on five ity of 00:00: days a and Medical 2.5 mg on Branch two days a week warfarin 5 2022-0 Yes [id number] Take 5 mg [facility] mg tablet 4-19 on five ity of 00:00: days a and Medical 2.5 mg on Branch two days a week warfarin 5 2022-0 Yes [id number] Take 5 mg [facility] mg tablet 4-19 on five ity of 00:00: days a week and Medical 2.5 mg on Branch two days a week warfarin 5 2022-0 Yes [id number] Take 5 mg [facility] mg tablet 4-19 on five ity of 00:00: days a and Medical 2.5 mg on Branch two days a week warfarin 5 2022-0 Yes [id number] Take 5 mg [facility] mg tablet 4-19 on five ity of 00:00: days a and Medical 2.5 mg on Branch two days a week warfarin 5 2022-0 Yes [id number] Take 5 mg [facility] mg tablet 4-19 on five ity of 00:00: days a and Medical 2.5 mg on Branch two days a week warfarin 5 2022-0 Yes [id number] Take 5 mg [facility] mg tablet 4-19 on five ity of 00:00: days a and Medical 2.5 mg on Branch two days a week warfarin 5 2022-0 Yes [id number] Take 5 mg [facility] mg tablet 4-19 on five ity of 00:00: days a and Medical 2.5 mg on Branch two days a week warfarin 5 2022-0 Yes [id number] Take 5 mg [facility] mg tablet 4-19 on five ity of 00:00: days a and Medical 2.5 mg on Branch two days a week warfarin 5 2022-0 Yes [id number] Take 5 mg [facility] mg tablet 4-19 on five ity of 00:00: days a and Medical 2.5 mg on Branch two days a week warfarin 5 2022-0 Yes [id number] Take 5 mg [facility] mg tablet 4-19 on five ity of 00:00: days a and Medical 2.5 mg on Branch two days a week warfarin 5 2022-0 Yes [id number] Take 5 mg [facility] mg tablet 4-19 on five ity of 00:00: days a and Medical 2.5 mg on Branch two days a week warfarin 5 2022-0 Yes [id number] Take 5 mg [facility] mg tablet 4-19 on five ity of 00:00: days a and Medical 2.5 mg on Branch two days a week warfarin 5 2022-0 Yes [id number] Take 5 mg [facility] mg tablet 4-19 on five ity of 00:00: days a week and Medical 2.5 mg on Branch two days a week warfarin 5 2022-0 Yes [id number] Take 5 mg [facility] mg tablet 4-19 on five ity of 00:00: days a week and Medical 2.5 mg on Branch two days a week warfarin 5 2022-0 Yes [id number] Take 5 mg [facility] mg tablet 4-19 on five ity of 00:00: days a and Medical 2.5 mg on Branch two days a week warfarin 5 2022-0 Yes [id number] Take 5 mg [facility] mg tablet 4-19 on five ity of 00:00: days a and Medical 2.5 mg on Branch two days a week warfarin 5 2022-0 Yes [id number] Take 5 mg [facility] mg tablet 4-19 on five ity of 00:00: days a and Medical 2.5 mg on Branch two days a week warfarin 5 2022-0 Yes [id number] Take 5 mg [facility] mg tablet 4-19 on five ity of 00:00: days a and Medical 2.5 mg on Branch two days a week warfarin 5 2022-0 Yes [id number] Take 5 mg [facility] mg tablet 4-19 on five ity of 00:00: days a and Medical 2.5 mg on Branch two days a week warfarin 5 2022-0 Yes [id number] Take 5 mg [facility] mg tablet 4-19 on five ity of 00:00: days a and Medical 2.5 mg on Branch two days a week warfarin 5 2022-0 Yes [id number] Take 5 mg [facility] mg tablet 4-19 on five ity of 00:00: days a and Medical 2.5 mg on Branch two days a week warfarin 5 2022-0 Yes [id number] Take 5 mg [facility] mg tablet 4-19 on five ity of 00:00: days a and Medical 2.5 mg on Branch two days a week warfarin 5 2022-0 Yes [id number] Take 5 mg [facility] mg tablet 4-19 on five ity of 00:00: days a and Medical 2.5 mg on Branch two days a week warfarin 5 2022-0 Yes [id number] Take 5 mg [facility] mg tablet 4-19 on five ity of 00:00: days a week and Medical 2.5 mg on Branch two days a week warfarin 5 2022-0 Yes [id number] Take 5 mg [facility] mg tablet 4-19 on five ity of 00:00: days a and Medical 2.5 mg on Branch two days a week warfarin 5 2022-0 Yes [id number] Take 5 mg [facility] mg tablet 4-19 on five ity of 00:00: days a and Medical 2.5 mg on Branch two days a week warfarin 5 2022-0 Yes [id number] Take 5 mg [facility] mg tablet 4-19 on five ity of 00:00: days a and Medical 2.5 mg on Branch two days a week warfarin 5 2022-0 Yes [id number] Take 5 mg [facility] mg tablet 4-19 on five ity of 00:00: days a and Medical 2.5 mg on Branch two days a week warfarin 5 2022-0 Yes [id number] Take 5 mg [facility] mg tablet 4-19 on five ity of 00:00: days a and Medical 2.5 mg on Branch two days a week warfarin 5 2022-0 Yes [id number] Take 5 mg [facility] mg tablet 4-19 on five ity of 00:00: days a and Medical 2.5 mg on Branch two days a week warfarin 5 2022-0 Yes [id number] Take 5 mg [facility] mg tablet 4-19 on five ity of 00:00: days a and Medical 2.5 mg on Branch two days a week warfarin 5 2022-0 Yes [id number] Take 5 mg [facility] mg tablet 4-19 on five ity of 00:00: days a and Medical 2.5 mg on Branch two days a week warfarin 5 2022-0 Yes [id number] Take 5 mg [facility] mg tablet 4-19 on five ity of 00:00: days a and Medical 2.5 mg on Branch two days a week warfarin 5 2022-0 Yes [id number] Take 5 mg [facility] mg tablet 4-19 on five ity of 00:00: days a and Medical 2.5 mg on Branch two days a week warfarin 5 2022-0 Yes [id number] Take 5 mg [facility] mg tablet 4-19 on five ity of 00:00: days a 00 week and Medical 2.5 mg on Branch two days a week warfarin 5 2022-0 Yes [id number] Take 5 mg [facility] mg tablet 4-19 on five ity of 00:00: days a week and Medical 2.5 mg on Branch two days a week warfarin 5 2022-0 Yes [id number] Take 5 mg [facility] mg tablet 4-19 on five ity of 00:00: days a week and Medical 2.5 mg on Branch two days a week warfarin 5 2022-0 Yes [id number] Take 5 mg [facility] mg tablet 4-19 on five ity of 00:00: days a week and Medical 2.5 mg on Branch two days a week warfarin 5 2022-0 Yes [id number] Take 5 mg [facility] mg tablet 4-19 on five ity of 00:00: days a week and Medical 2.5 mg on Branch two days a week warfarin 5 2022-0 2022- No [id number] Take 5 mg [facility] mg tablet 4-19 05-31 on five ity of 00:00: 00:00 days a [place] 00 :00 week and Medical 2.5 mg on Branch two days a week warfarin 5 2022-0 2022- No [id number] 5mg Take 1 [facility] mg tablet -09-26 tablet by ity of 00:00: 00:00 mouth [place] 00 :00 every Medical evening. Branch Take 5 mg M-F and 2.5 mg on S/S enoxaparin 2022- Yes [id number] 61mg inject [facility] 60 mg/0.6 09-24 0.61 mL ity of mL 00:00: 04:59 under the [place] injection 00 :00 skin every Medi alise 24 Branch (twenty-fo ur) hours for 5 days. enoxaparin 2022- Yes [id number] 61mg inject [facility] 60 mg/0.6 09-2423 0.61 mL ity of mL 00:00: 04:59 under the [place] injection 00 :00 skin every Medi alise 24 Branch (twenty-fo ur) hours for 5 days. enoxaparin 2022- Yes [id number] 61mg inject [facility] 60 mg/0.6 09-24-23 0.61 mL ity of mL 00:00: 04:59 under the [place] injection 00 :00 skin every Medi [facility] 24 Branch (twenty-fo ur) hours for 5 days. enoxaparin 2022-2022- Yes [id number] 61mg inject [facility] 60 mg/0.6 -17 -23 0.61 mL ity of mL 00:00: 04:59 under the [place] injection 00 :00 skin every [facility] alise 24 Branch (twenty-fo ur) hours for 5 days. enoxaparin 2022-0 2022- Yes [id number] 61mg inject [facility] 60 mg/0.6 17 -23 0.61 mL ity of mL 00:00: 04:59 under the [place] injection 00 :00 skin every [facility] 24 Branch (twenty-fo ur) hours for 5 days. enoxaparin 2022-2022- Yes [id number] 61mg inject [facility] 60 mg/0.6 09-24-23 0.61 mL ity of mL 00:00: 04:59 under the [place] injection 00 :00 skin every Medi alise 24 Branch (twenty-fo ur) hours for 5 days. enoxaparin 2022-0 2022- Yes [id number] 61mg inject [facility] 60 mg/0.6 17 -23 0.61 mL ity of mL 00:00: 04:59 under the [place] injection 00 :00 skin every [facility] 24 Branch (twenty-fo ur) hours for 5 days. enoxaparin 2022- No [id number] 61mg inject [facility] 60 mg/0.6 4-17 -19 0.61 mL ity of mL 00:00: 00:00 under the [place] injection 00 :00 skin every [facility] 24 Branch (twenty-fo ur) hours for 5 days. acetaminoph 2023-0 Yes 1300mg Take 2 [facility] 650 mg 4-16 tablets by ity of CR tablet 14:15: [place] the Medical morning Branch and 2 tablets at noon and 2 tablets in the evening. ferrous 3-0 Yes 325mg Take 1 [facility] sulfate 325 4-16 tablet by ity of mg (65 mg 14:15: [place] iron[place] the Medical tablet morning. Branch KCL 10 mEq 3-0 Yes 10meq Take 1 Univ ers tablet 4-16 tablet by ity of 14:15: mouth in [place] [address] the Medical morning. Branch hydrALAZINE 2023-0 Yes 50mg Take 1 Univ ers 50 mg 4-16 tablet by ity of tablet 14:15: mouth [place] [address] every 8 Medical (eight) Branch hours. acetaminoph 2023-0 Yes 1300mg Take 2 [facility] miracle en 650 mg 4-16 tablets by ity of CR tablet 14:15: mouth in [place] [address] the Medical morning Branch and 2 tablets at noon and 2 tablets in the evening. ferrous 2023-0 Yes 325mg Take 1 [facility] sulfate 325 4-16 tablet by ity of mg (65 mg 14:15: mouth in [facility]) 42 the Medical tablet morning. Branch KCL 10 mEq 2023-0 Yes 10meq Take 1 Univ ers tablet 4-16 tablet by ity of 14:15: mouth in [place] [address] the Medical morning. Branch hydrALAZINE 2023-0 Yes 50mg Take 1 Univ ers 50 mg 4-16 tablet by ity of tablet 14:15: mouth [place] [address] every 8 Medical (eight) Branch hours. acetaminoph 2023-0 Yes 1300mg Take 2 [facility] miracle en 650 mg 4-16 tablets by ity of CR tablet 14:15: mouth in [place] [address] the Medical morning Branch and 2 tablets at noon and 2 tablets in the evening. ferrous 2023-0 Yes 325mg Take 1 [facility] sulfate 325 4-16 tablet by ity of mg (65 mg 14:15: mouth in [place] [facility] iron) 42 the Medical tablet morning. Branch KCL 10 mEq 2023-0 Yes 10meq Take 1 Univ ers tablet 4-16 tablet by ity of 14:15: mouth in [place] [address] the Medical morning. Branch hydrALAZINE 2023-0 Yes 50mg Take 1 Univ ers 50 mg 4-16 tablet by ity of tablet 14:15: mouth [place] [address] every 8 Medical (eight) Branch hours. acetaminoph 2023-0 Yes 1300mg Take 2 [facility] miracle en 650 mg 4-16 tablets by ity of CR tablet 14:15: mouth in [place] [address] the Medical morning Branch and 2 tablets at noon and 2 tablets in the evening. ferrous 2023-0 Yes 325mg Take 1 [facility] sulfate 325 4-16 tablet by ity of mg (65 mg 14:15: mouth in [place] [facility] iron) 42 the Medical tablet morning. Branch KCL 10 mEq 2023-0 Yes 10meq Take 1 Univ ers tablet 4-16 tablet by ity of 14:15: mouth in [place] [address] the Medical morning. Branch hydrALAZINE 2023-0 Yes 50mg Take 1 Univ ers 50 mg 4-16 tablet by ity of tablet 14:15: mouth [place] [address] every 8 Medical (eight) Branch hours. acetaminoph 2023-0 Yes 1300mg Take 2 [facility] miracle en 650 mg 4-16 tablets by ity of CR tablet 14:15: mouth in [place] [address] the Medical morning Branch and 2 tablets at noon and 2 tablets in the evening. ferrous 2023-0 Yes 325mg Take 1 [facility] sulfate 325 4-16 tablet by ity of mg (65 mg 14:15: mouth in [facility]) 42 the Medical tablet morning. Branch KCL 10 mEq 2023-0 Yes 10meq Take 1 Univ ers tablet 4-16 tablet by ity of 14:15: mouth in [place] [address] the Medical morning. Branch hydrALAZINE 2023-0 Yes 50mg Take 1 Univ ers 50 mg 4-16 tablet by ity of tablet 14:15: mouth [place] [address] every 8 Medical (eight) Branch hours. acetaminoph 2023-0 Yes 1300mg Take 2 [facility] miracle en 650 mg 4-16 tablets by ity of CR tablet 14:15: mouth in [place] [address] the Medical morning Branch and 2 tablets at noon and 2 tablets in the evening. ferrous 2023-0 Yes 325mg Take 1 [facility] sulfate 325 4-16 tablet by ity of mg (65 mg 14:15: mouth in [place] [facility] iron) 42 the Medical tablet morning. Branch KCL 10 mEq 2023-0 Yes 10meq Take 1 Univ ers tablet 4-16 tablet by ity of 14:15: mouth in [place] [address] the Medical morning. Branch hydrALAZINE 2023-0 Yes 50mg Take 1 Univ ers 50 mg 4-16 tablet by ity of tablet 14:15: mouth [place] [address] every 8 Medical (eight) Branch hours. acetaminoph 2023-0 Yes 1300mg Take 2 [facility] miracle en 650 mg 4-16 tablets by ity of CR tablet 14:15: mouth in [place] [address] the Medical morning Branch and 2 tablets at noon and 2 tablets in the evening. ferrous 2023-0 Yes 325mg Take 1 [facility] sulfate 325 4-16 tablet by ity of mg (65 mg 14:15: mouth in [facility]) 42 the Medical tablet morning. Branch KCL 10 mEq 2023-0 Yes 10meq Take 1 Univ ers tablet 4-16 tablet by ity of 14:15: mouth in [place] 42 the Medical morning. Branch hydrALAZINE 2023-0 Yes 50mg Take 1 Univ ers 50 mg 4-16 tablet by ity of tablet 14:15: mouth [place] [address] every 8 Medical (eight) Branch hours. acetaminoph 2023-0 Yes 1300mg Take 2 Un miracle en 650 mg 4-16 tablets by ity of CR tablet 14:15: mouth in [place] [facility] 42 the Medical morning Branch and 2 tablets at noon and 2 tablets in the evening. ferrous 2023-0 Yes 325mg Take 1 [facility] sulfate 325 4-16 tablet by ity of mg (65 mg 14:15: mouth in [facility]) 42 the Medical tablet morning. Branch KCL 10 mEq 2023-0 Yes 10meq Take 1 Univ ers tablet 4-16 tablet by ity of 14:15: mouth in [place] [address] the Medical morning. Branch hydrALAZINE 2023-0 Yes 50mg Take 1 Univ ers 50 mg 4-16 tablet by ity of tablet 14:15: mouth [place] [address] every 8 Medical (eight) Branch hours. acetaminoph 2023-0 Yes 1300mg Take 2 Un miracle en 650 mg 4-16 tablets by ity of CR tablet 14:15: mouth in [place] [address] the Medical morning Branch and 2 tablets at noon and 2 tablets in the evening. ferrous 2023-0 Yes 325mg Take 1 [facility] sulfate 325 4-16 tablet by ity of mg (65 mg 14:15: mouth in [place] [facility] iron) 42 the Medical tablet morning. Branch KCL 10 mEq 2023-0 Yes 10meq Take 1 Univ ers tablet 4-16 tablet by ity of 14:15: mouth in [place] 42 the Medical morning. Branch hydrALAZINE 2023-0 Yes 50mg Take 1 Univ ers 50 mg 4-16 tablet by ity of tablet 14:15: mouth [place] [address] every 8 Medical (eight) Branch hours. acetaminoph 2023-0 Yes 1300mg Take 2 [facility] miracle en 650 mg 4-16 tablets by ity of CR tablet 14:15: mouth in [place] [address] the Medical morning Branch and 2 tablets at noon and 2 tablets in the evening. ferrous 2023-0 Yes 325mg Take 1 [facility] sulfate 325 4-16 tablet by ity of mg (65 mg 14:15: mouth in [place] [facility] iron) 42 the Medical tablet morning. Branch KCL 10 mEq 2023-0 Yes 10meq Take 1 Univ ers tablet 4-16 tablet by ity of 14:15: mouth in [place] [address] the Medical morning. Branch hydrALAZINE 2023-0 Yes 50mg Take 1 Univ ers 50 mg 4-16 tablet by ity of tablet 14:15: mouth [place] [address] every 8 Medical (eight) Branch hours. acetaminoph 2023-0 Yes 1300mg Take 2 [facility] miracle en 650 mg 4-16 tablets by ity of CR tablet 14:15: mouth in [place] [address] the Medical morning Branch and 2 tablets at noon and 2 tablets in the evening. ferrous 2023-0 Yes 325mg Take 1 [facility] sulfate 325 4-16 tablet by ity of mg (65 mg 14:15: mouth in [place] [facility] iron) 42 the Medical tablet morning. Branch KCL 10 mEq 2023-0 Yes 10meq Take 1 Univ ers tablet 4-16 tablet by ity of 14:15: mouth in [place] [address] the Medical morning. Branch hydrALAZINE 2023-0 Yes 50mg Take 1 Univ ers 50 mg 4-16 tablet by ity of tablet 14:15: mouth [place] [address] every 8 Medical (eight) Branch hours. acetaminoph 2023-0 Yes 1300mg Take 2 [facility] miracle en 650 mg 4-16 tablets by ity of CR tablet 14:15: mouth in [place] [address] the Medical morning Branch and 2 tablets at noon and 2 tablets in the evening. ferrous 2023-0 Yes 325mg Take 1 [facility] sulfate 325 4-16 tablet by ity of mg (65 mg 14:15: mouth in [place] [facility] iron) 42 the Medical tablet morning. Branch KCL 10 mEq 2023-0 Yes 10meq Take 1 Univ ers tablet 4-16 tablet by ity of 14:15: mouth in [place] [address] the Medical morning. Branch hydrALAZINE 2023-0 Yes 50mg Take 1 Univ ers 50 mg 4-16 tablet by ity of tablet 14:15: mouth [place] 42 every 8 Medical (eight) Branch hours. acetaminoph 2023-0 Yes 1300mg Take 2 Un miracle en 650 mg 4-16 tablets by ity of CR tablet 14:15: mouth in [place] [facility] 42 the Medical morning Branch and 2 tablets at noon and 2 tablets in the evening. ferrous 2023-0 Yes 325mg Take 1 [facility] sulfate 325 4-16 tablet by ity of mg (65 mg 14:15: mouth in [place] [facility] iron) 42 the Medical tablet morning. Branch KCL 10 mEq 2023-0 Yes 10meq Take 1 Univ ers tablet 4-16 tablet by ity of 14:15: mouth in [place] 42 the Medical morning. Branch hydrALAZINE 2023-0 Yes 50mg Take 1 Univ ers 50 mg 4-16 tablet by ity of tablet 14:15: mouth [place] 42 every 8 Medical (eight) Branch hours. acetaminoph 2023-0 Yes 1300mg Take 2 Un miracle en 650 mg 4-16 tablets by ity of CR tablet 14:15: mouth in [place] [address] the Medical morning Branch and 2 tablets at noon and 2 tablets in the evening. ferrous 2023-0 Yes 325mg Take 1 [facility] sulfate 325 4-16 tablet by ity of mg (65 mg 14:15: mouth in [place] [facility] iron) 42 the Medical tablet morning. Branch KCL 10 mEq 2023-0 Yes 10meq Take 1 Univ ers tablet 4-16 tablet by ity of 14:15: mouth in [place] [address] the Medical morning. Branch hydrALAZINE 2023-0 Yes 50mg Take 1 Univ ers 50 mg 4-16 tablet by ity of tablet 14:15: mouth [place] [address] every 8 Medical (eight) Branch hours. acetaminoph 2023-0 Yes 1300mg Take 2 Un miracle en 650 mg 4-16 tablets by ity of CR tablet 14:15: mouth in [place] [facility] 42 the Medical morning Branch and 2 tablets at noon and 2 tablets in the evening. ferrous 2023-0 Yes 325mg Take 1 [facility] sulfate 325 4-16 tablet by ity of mg (65 mg 14:15: mouth in [place] [facility] iron) 42 the Medical tablet morning. Branch KCL 10 mEq 2023-0 Yes 10meq Take 1 Univ ers tablet 4-16 tablet by ity of 14:15: mouth in [place] 42 the Medical morning. Branch hydrALAZINE 2023-0 Yes 50mg Take 1 Univ ers 50 mg 4-16 tablet by ity of tablet 14:15: mouth [place] [address] every 8 Medical (eight) Branch hours. acetaminoph 2023-0 Yes 1300mg Take 2 Un miracle en 650 mg 4-16 tablets by ity of CR tablet 14:15: mouth in [place] [address] the Medical morning Branch and 2 tablets at noon and 2 tablets in the evening. ferrous 2023-0 Yes 325mg Take 1 [facility] sulfate 325 4-16 tablet by ity of mg (65 mg 14:15: mouth in [place] [facility] iron) 42 the Medical tablet morning. Branch KCL 10 mEq 2023-0 Yes 10meq Take 1 Univ ers tablet 4-16 tablet by ity of 14:15: mouth in [place] [address] the Medical morning. Branch hydrALAZINE 2023-0 Yes 50mg Take 1 Univ ers 50 mg 4-16 tablet by ity of tablet 14:15: mouth [place] [address] every 8 Medical (eight) Branch hours. acetaminoph 2023-0 Yes 1300mg Take 2 Un miracle en 650 mg 4-16 tablets by ity of CR tablet 14:15: mouth in [place] [address] the Medical morning Branch and 2 tablets at noon and 2 tablets in the evening. ferrous 2023-0 Yes 325mg Take 1 [facility] sulfate 325 4-16 tablet by ity of mg (65 mg 14:15: mouth in [place] [facility] iron) 42 the Medical tablet morning. Branch KCL 10 mEq 2023-0 Yes 10meq Take 1 Univ ers tablet 4-16 tablet by ity of 14:15: mouth in [place] [address] the Medical morning. Branch acetaminoph 2023-0 Yes 1300mg Take 2 Un miracle en 650 mg 4-16 tablets by ity of CR tablet 14:15: mouth in [place] [address] the Medical morning Branch and 2 tablets at noon and 2 tablets in the evening. ferrous 2023-0 Yes 325mg Take 1 [facility] sulfate 325 4-16 tablet by ity of mg (65 mg 14:15: mouth in [place] [facility] iron) 42 the Medical tablet morning. Branch KCL 10 mEq 2023-0 Yes 10meq Take 1 Univ ers tablet 4-16 tablet by ity of 14:15: mouth in [place] [address] the Medical morning. Branch acetaminoph 2023-0 Yes 1300mg Take 2 Un miracle en 650 mg 4-16 tablets by ity of CR tablet 14:15: mouth in [place] [address] the Medical morning Branch and 2 tablets at noon and 2 tablets in the evening. ferrous 2023-0 Yes 325mg Take 1 [facility] sulfate 325 4-16 tablet by ity of mg (65 mg 14:15: mouth in [place] [facility] iron) 42 the Medical tablet morning. Branch KCL 10 mEq 2023-0 Yes 10meq Take 1 Univ ers tablet 4-16 tablet by ity of 14:15: mouth in [place] 42 the Medical morning. Branch acetaminoph 2023-0 Yes 1300mg Take 2 Un miracle en 650 mg 4-16 tablets by ity of CR tablet 14:15: mouth in [place] [facility] 42 the Medical morning Branch and 2 tablets at noon and 2 tablets in the evening. ferrous 2023-0 Yes 325mg Take 1 [facility] sulfate 325 4-16 tablet by ity of mg (65 mg 14:15: mouth in [facility]) 42 the Medical tablet morning. Branch KCL 10 mEq 2023-0 Yes 10meq Take 1 Univ ers tablet 4-16 tablet by ity of 14:15: mouth in [place] [address] the Medical morning. Branch acetaminoph 2023-0 Yes 1300mg Take 2 Un miracle en 650 mg 4-16 tablets by ity of CR tablet 14:15: mouth in [place] [address] the Medical morning Branch and 2 tablets at noon and 2 tablets in the evening. ferrous 2023-0 Yes 325mg Take 1 [facility] sulfate 325 4-16 tablet by ity of mg (65 mg 14:15: mouth in [facility]) 42 the Medical tablet morning. Branch KCL 10 mEq 2023-0 Yes 10meq Take 1 [facility] tablet 4-16 tablet by ity of 14:15: mouth in [place] 42 the Medical morning. Branch acetaminoph 2023-0 Yes 1300mg Take 2 [facility] miracle en 650 mg 4-16 tablets by ity of CR tablet 14:15: mouth in [facility] 42 the Medical morning Branch and 2 tablets at noon and 2 tablets in the evening. ferrous 2023-0 Yes 325mg Take 1 [facility] sulfate 325 4-16 tablet by ity of mg (65 mg 14:15: mouth in [facility]) 42 the Medical tablet morning. Branch KCL 10 mEq 2023-0 Yes 10meq Take 1 [facility] tablet 4-16 tablet by ity of 14:15: mouth in [place] [address] the Medical morning. Branch acetaminoph 2023-0 Yes 1300mg Take 2 [facility] miracle en 650 mg 4-16 tablets by ity of CR tablet 14:15: mouth in [place] [address] the Medical morning Branch and 2 tablets at noon and 2 tablets in the evening. ferrous 2023-0 Yes 325mg Take 1 [facility] sulfate 325 4-16 tablet by ity of mg (65 mg 14:15: mouth in [facility]) 42 the Medical tablet morning. Branch KCL 10 mEq 2023-0 Yes 10meq Take 1 [facility] tablet 4-16 tablet by ity of 14:15: mouth in [place] [address] the Medical morning. Branch acetaminoph 2023-0 Yes 1300mg Take 2 [facility] miracle en 650 mg 4-16 tablets by ity of CR tablet 14:15: mouth in [place] [address] the Medical morning Branch and 2 tablets at noon and 2 tablets in the evening. ferrous 2023-0 Yes 325mg Take 1 [facility] sulfate 325 4-16 tablet by ity of mg (65 mg 14:15: mouth in [facility]) 42 the Medical tablet morning. Branch KCL 10 mEq 2023-0 Yes 10meq Take 1 [facility] tablet 4-16 tablet by ity of 14:15: mouth in [place] [address] the Medical morning. Branch acetaminoph 2023-0 Yes 1300mg Take 2 [facility] miracle en 650 mg 4-16 tablets by ity of CR tablet 14:15: mouth in [place] [address] the Medical morning Branch and 2 tablets at noon and 2 tablets in the evening. ferrous 2023-0 Yes 325mg Take 1 [facility] sulfate 325 4-16 tablet by ity of mg (65 mg 14:15: mouth in [facility]) 42 the Medical tablet morning. Branch KCL 10 mEq 2023-0 Yes 10meq Take 1 [facility] tablet 4-16 tablet by ity of 14:15: mouth in [place] [address] the Medical morning. Branch acetaminoph 2023-0 Yes 1300mg Take 2 [facility] miracle en 650 mg 4-16 tablets by ity of CR tablet 14:15: mouth in [place] [address] the Medical morning Branch and 2 tablets at noon and 2 tablets in the evening. ferrous 2023-0 Yes 325mg Take 1 [facility] sulfate 325 4-16 tablet by ity of mg (65 mg 14:15: mouth in [facility] iron) 42 the Medical tablet morning. Branch KCL 10 mEq 2023-0 Yes 10meq Take 1 [facility] tablet 4-16 tablet by ity of 14:15: mouth in [place] [address] the Medical morning. Branch acetaminoph 2023-0 Yes 1300mg Take 2 [facility] miracle en 650 mg 4-16 tablets by ity of CR tablet 14:15: mouth in [facility] 42 the Medical morning Branch and 2 tablets at noon and 2 tablets in the evening. ferrous 2023-0 Yes 325mg Take 1 [facility] sulfate 325 4-16 tablet by ity of mg (65 mg 14:15: mouth in [facility]) 42 the Medical tablet morning. Branch KCL 10 mEq 2023-0 Yes 10meq Take 1 [facility] tablet 4-16 tablet by ity of 14:15: mouth in [place] [address] the Medical morning. Branch acetaminoph 2023-0 Yes 1300mg Take 2 [facility] miracle en 650 mg 4-16 tablets by ity of CR tablet 14:15: mouth in [facility] 42 the Medical morning Branch and 2 tablets at noon and 2 tablets in the evening. ferrous 2023-0 Yes 325mg Take 1 [facility] sulfate 325 4-16 tablet by ity of mg (65 mg 14:15: mouth in [facility]) 42 the Medical tablet morning. Branch KCL 10 mEq 2023-0 Yes 10meq Take 1 [facility] tablet 4-16 tablet by ity of 14:15: mouth in [place] [address] the Medical morning. Branch acetaminoph 2023-0 Yes 1300mg Take 2 [facility] miracle en 650 mg 4-16 tablets by ity of CR tablet 14:15: mouth in [facility] 42 the Medical morning Branch and 2 tablets at noon and 2 tablets in the evening. ferrous 2023-0 Yes 325mg Take 1 [facility] sulfate 325 4-16 tablet by ity of mg (65 mg 14:15: mouth in [facility]) 42 the Medical tablet morning. Branch KCL 10 mEq 2023-0 Yes 10meq Take 1 [facility] tablet 4-16 tablet by ity of 14:15: mouth in [place] 42 the Medical morning. Branch acetaminoph 2023-0 Yes 1300mg Take 2 [facility] miracle en 650 mg 4-16 tablets by ity of CR tablet 14:15: mouth in [place] [address] the Medical morning Branch and 2 tablets at noon and 2 tablets in the evening. ferrous 2023-0 Yes 325mg Take 1 [facility] sulfate 325 4-16 tablet by ity of mg (65 mg 14:15: mouth in [facility] iron) 42 the Medical tablet morning. Branch KCL 10 mEq 2023-0 Yes 10meq Take 1 [facility] ers tablet 4-16 tablet by ity of 14:15: mouth in [place] [address] the Medical morning. Branch hydrALAZINE 2023-0 Yes 50mg Take 1 [facility] ers 50 mg 4-16 tablet by ity of tablet 14:15: mouth [place] [address] every 8 Medical (eight) Branch hours. acetaminoph 2023-0 Yes 1300mg Take 2 [facility] miracle en 650 mg 4-16 tablets by ity of CR tablet 14:15: mouth in [place] [address] the Medical morning Branch and 2 tablets at noon and 2 tablets in the evening. acetaminoph 2023-0 Yes 1300mg Take 2 [facility] miracle en 650 mg 4-16 tablets by ity of CR tablet 14:15: mouth in [place] [address] the Medical morning Branch and 2 tablets at noon and 2 tablets in the evening. ferrous 2023-0 Yes 325mg Take 1 [facility] sulfate 325 4-16 tablet by ity of mg (65 mg 14:15: mouth in [facility] iron) 42 the Medical tablet morning. Branch KCL 10 mEq 2023-0 Yes 10meq Take 1 [facility] tablet 4-16 tablet by ity of 14:15: mouth in [place] [address] the Medical morning. Branch hydrALAZINE 2023-0 Yes 50mg Take 1 [facility] ers 50 mg 4-16 tablet by ity of tablet 14:15: mouth [place] [address] every 8 Medical (eight) Branch hours. acetaminoph 2023-0 Yes 1300mg Take 2 [facility] miracle en 650 mg 4-16 tablets by ity of CR tablet 14:15: mouth in [place] [address] the Medical morning Branch and 2 tablets at noon and 2 tablets in the evening. ferrous 2023-0 Yes 325mg Take 1 [facility] sulfate 325 4-16 tablet by ity of mg (65 mg 14:15: mouth in [facility] iron) 42 the Medical tablet morning. Branch KCL 10 mEq 2023-0 Yes 10meq Take 1 [facility] ers tablet 4-16 tablet by ity of 14:15: mouth in [place] [address] the Medical morning. Branch hydrALAZINE 2023-0 Yes 50mg Take 1 [facility] ers 50 mg 4-16 tablet by ity of tablet 14:15: mouth [place] [address] every 8 Medical (eight) Branch hours. acetaminoph 2023-0 Yes 1300mg Take 2 [facility] miracle en 650 mg 4-16 tablets by ity of CR tablet 14:15: mouth in [place] [address] the Medical morning Branch and 2 tablets at noon and 2 tablets in the evening. ferrous 2023-0 Yes 325mg Take 1 [facility] sulfate 325 4-16 tablet by ity of mg (65 mg 14:15: mouth in [facility] iron) 42 the Medical tablet morning. Branch KCL 10 mEq 2023-0 Yes 10meq Take 1 [facility] tablet 4-16 tablet by ity of 14:15: mouth in [place] [address] the Medical morning. Branch hydrALAZINE 2023-0 Yes 50mg Take 1 [facility] ers 50 mg 4-16 tablet by ity of tablet 14:15: mouth [place] [address] every 8 Medical (eight) Branch hours. acetaminoph 2023-0 Yes 1300mg Take 2 [facility] miracle en 650 mg 4-16 tablets by ity of CR tablet 14:15: mouth in [place] [address] the Medical morning Branch and 2 tablets at noon and 2 tablets in the evening. ferrous 2023-0 Yes 325mg Take 1 [facility] sulfate 325 4-16 tablet by ity of mg (65 mg 14:15: mouth in [facility] iron) 42 the Medical tablet morning. Branch KCL 10 mEq 2023-0 Yes 10meq Take 1 [facility] ers tablet 4-16 tablet by ity of 14:15: mouth in [place] [address] the Medical morning. Branch hydrALAZINE 2023-0 Yes 50mg Take 1 [facility] ers 50 mg 4-16 tablet by ity of tablet 14:15: mouth [place] [address] every 8 Medical (eight) Branch hours. acetaminoph 2023-0 Yes 1300mg Take 2 [facility] miracle en 650 mg 4-16 tablets by ity of CR tablet 14:15: mouth in [place] [address] the Medical morning Branch and 2 tablets at noon and 2 tablets in the evening. ferrous 2023-0 Yes 325mg Take 1 [facility] sulfate 325 4-16 tablet by ity of mg (65 mg 14:15: mouth in [facility] iron) 42 the Medical tablet morning. Branch KCL 10 mEq 2023-0 Yes 10meq Take 1 [facility] tablet 4-16 tablet by ity of 14:15: mouth in [place] [address] the Medical morning. Branch hydrALAZINE 2023-0 Yes 50mg Take 1 [facility] 50 mg 4-16 tablet by ity of tablet 14:15: mouth [place] [address] every 8 Medical (eight) Branch hours. acetaminoph 2023-0 Yes 1300mg Take 2 [facility] miracle en 650 mg 4-16 tablets by ity of CR tablet 14:15: mouth in [place] [address] the Medical morning Branch and 2 tablets at noon and 2 tablets in the evening. ferrous 2023-0 Yes 325mg Take 1 [facility] sulfate 325 4-16 tablet by ity of mg (65 mg 14:15: mouth in [facility]) 42 the Medical tablet morning. Branch KCL 10 mEq 2023-0 Yes 10meq Take 1 [facility] tablet 4-16 tablet by ity of 14:15: mouth in [place] [address] the Medical morning. Branch hydrALAZINE 2023-0 Yes 50mg Take 1 [facility] ers 50 mg 4-16 tablet by ity of tablet 14:15: mouth [place] [address] every 8 Medical (eight) Branch hours. acetaminoph 2023-0 Yes 1300mg Take 2 [facility] miracle en 650 mg 4-16 tablets by ity of CR tablet 14:15: mouth in [place] [address] the Medical morning Branch and 2 tablets at noon and 2 tablets in the evening. ferrous 2023-0 Yes 325mg Take 1 [facility] sulfate 325 4-16 tablet by ity of mg (65 mg 14:15: mouth in [facility]) 42 the Medical tablet morning. Branch KCL 10 mEq 2023-0 Yes 10meq Take 1 [facility] tablet 4-16 tablet by ity of 14:15: mouth in [place] [address] the Medical morning. Branch hydrALAZINE 2023-0 Yes 50mg Take 1 [facility] ers 50 mg 4-16 tablet by ity of tablet 14:15: mouth [place] [address] every 8 Medical (eight) Branch hours. acetaminoph 2023-0 Yes 1300mg Take 2 [facility] miracle en 650 mg 4-16 tablets by ity of CR tablet 14:15: mouth in [place] [address] the Medical morning Branch and 2 tablets at noon and 2 tablets in the evening. ferrous 2023-0 Yes 325mg Take 1 [facility] sulfate 325 4-16 tablet by ity of mg (65 mg 14:15: mouth in [facility] iron) 42 the Medical tablet morning. Branch KCL 10 mEq 2023-0 Yes 10meq Take 1 [facility] ers tablet 4-16 tablet by ity of 14:15: mouth in [place] [address] the Medical morning. Branch hydrALAZINE 2023-0 Yes 50mg Take 1 [facility] ers 50 mg 4-16 tablet by ity of tablet 14:15: mouth [place] [address] every 8 Medical (eight) Branch hours. acetaminoph 2023-0 Yes 1300mg Take 2 [facility] miracle en 650 mg 4-16 tablets by ity of CR tablet 14:15: mouth in [facility] 42 the Medical morning Branch and 2 tablets at noon and 2 tablets in the evening. ferrous 2023-0 Yes 325mg Take 1 [facility] sulfate 325 4-16 tablet by ity of mg (65 mg 14:15: mouth in [facility]) 42 the Medical tablet morning. Branch KCL 10 mEq 2023-0 Yes 10meq Take 1 [facility] ers tablet 4-16 tablet by ity of 14:15: mouth in [place] [address] the Medical morning. Branch hydrALAZINE 2023-0 Yes 50mg Take 1 [facility] ers 50 mg 4-16 tablet by ity of tablet 14:15: mouth [place] [address] every 8 Medical (eight) Branch hours. acetaminoph 2023-0 Yes 1300mg Take 2 [facility] miracle en 650 mg 4-16 tablets by ity of CR tablet 14:15: mouth in [place] [address] the Medical morning Branch and 2 tablets at noon and 2 tablets in the evening. ferrous 2023-0 Yes 325mg Take 1 [facility] sulfate 325 4-16 tablet by ity of mg (65 mg 14:15: mouth in [facility] iron) 42 the Medical tablet morning. Branch KCL 10 mEq 2023-0 Yes 10meq Take 1 [facility] ers tablet 4-16 tablet by ity of 14:15: mouth in [place] 42 the Medical morning. Branch hydrALAZINE 2023-0 Yes 50mg Take 1 [facility] ers 50 mg 4-16 tablet by ity of tablet 14:15: mouth [place] [address] every 8 Medical (eight) Branch hours. acetaminoph 2023-0 Yes 1300mg Take 2 [facility] miracle en 650 mg 4-16 tablets by ity of CR tablet 14:15: mouth in [place] [address] the Medical morning Branch and 2 tablets at noon and 2 tablets in the evening. ferrous 2023-0 Yes 325mg Take 1 [facility] sulfate 325 4-16 tablet by ity of mg (65 mg 14:15: mouth in [facility] iron) 42 the Medical tablet morning. Branch KCL 10 mEq 2023-0 Yes 10meq Take 1 [facility] ers tablet 4-16 tablet by ity of 14:15: mouth in [place] [address] the Medical morning. Branch hydrALAZINE 2023-0 Yes 50mg Take 1 [facility] ers 50 mg 4-16 tablet by ity of tablet 14:15: mouth [place] [address] every 8 Medical (eight) Branch hours. acetaminoph 2023-0 Yes 1300mg Take 2 [facility] miracle en 650 mg 4-16 tablets by ity of CR tablet 14:15: mouth in [place] [address] the Medical morning Branch and 2 tablets at noon and 2 tablets in the evening. ferrous 2023-0 Yes 325mg Take 1 [facility] sulfate 325 4-16 tablet by ity of mg (65 mg 14:15: mouth in [facility] iron) 42 the Medical tablet morning. Branch KCL 10 mEq 2023-0 Yes 10meq Take 1 [facility] ers tablet 4-16 tablet by ity of 14:15: mouth in [place] [address] the Medical morning. Branch hydrALAZINE 2023-0 Yes 50mg Take 1 [facility] ers 50 mg 4-16 tablet by ity of tablet 14:15: mouth [place] [address] every 8 Medical (eight) Branch hours. acetaminoph 2023-0 Yes 1300mg Take 2 [facility] miracle en 650 mg 4-16 tablets by ity of CR tablet 14:15: mouth in [place] [address] the Medical morning Branch and 2 tablets at noon and 2 tablets in the evening. acetaminoph 2023-0 Yes 1300mg Take 2 Un miracel en 650 mg 4-16 tablets by ity of CR tablet 14:15: mouth in [place] [address] the Medical morning Branch and 2 tablets at noon and 2 tablets in the evening. ferrous 2023-0 Yes 325mg Take 1 [facility] sulfate 325 4-16 tablet by ity of mg (65 mg 14:15: mouth in [facility]) 42 the Medical tablet morning. Branch KCL 10 mEq 2023-0 Yes 10meq Take 1 [facility] ers tablet 4-16 tablet by ity of 14:15: mouth in [place] [address] the Medical morning. Branch hydrALAZINE 2023-0 Yes 50mg Take 1 [facility] ers 50 mg 4-16 tablet by ity of tablet 14:15: mouth [place] [address] every 8 Medical (eight) Branch hours. acetaminoph 2023-0 Yes 1300mg Take 2 [facility] miracle en 650 mg 4-16 tablets by ity of CR tablet 14:15: mouth in [place] [address] the Medical morning Branch and 2 tablets at noon and 2 tablets in the evening. ferrous 2023-0 Yes 325mg Take 1 [facility] sulfate 325 4-16 tablet by ity of mg (65 mg 14:15: mouth in [facility] iron) 42 the Medical tablet morning. Branch KCL 10 mEq 2023-0 Yes 10meq Take 1 [facility] ers tablet 4-16 tablet by ity of 14:15: mouth in [place] [address] the Medical morning. Branch hydrALAZINE 2023-0 Yes 50mg Take 1 [facility] ers 50 mg 4-16 tablet by ity of tablet 14:15: mouth [place] [address] every 8 Medical (eight) Branch hours. acetaminoph 2023-0 Yes 1300mg Take 2 [facility] miracle en 650 mg 4-16 tablets by ity of CR tablet 14:15: mouth in [place] [address] the Medical morning Branch and 2 tablets at noon and 2 tablets in the evening. ferrous 2023-0 Yes 325mg Take 1 [facility] sulfate 325 4-16 tablet by ity of mg (65 mg 14:15: mouth in [facility] iron) 42 the Medical tablet morning. Branch KCL 10 mEq 2023-0 Yes 10meq Take 1 [facility] ers tablet 4-16 tablet by ity of 14:15: mouth in [place] [address] the Medical morning. Branch hydrALAZINE 2023-0 Yes 50mg Take 1 [facility] ers 50 mg 4-16 tablet by ity of tablet 14:15: mouth [place] [address] every 8 Medical (eight) Branch hours. acetaminoph 2023-0 Yes 1300mg Take 2 [facility] miracle en 650 mg 4-16 tablets by ity of CR tablet 14:15: mouth in [place] [address] the Medical morning Branch and 2 tablets at noon and 2 tablets in the evening. ferrous 2023-0 Yes 325mg Take 1 [facility] sulfate 325 4-16 tablet by ity of mg (65 mg 14:15: mouth in [facility] iron) 42 the Medical tablet morning. Branch KCL 10 mEq 2023-0 Yes 10meq Take 1 [facility] ers tablet 4-16 tablet by ity of 14:15: mouth in [place] [address] the Medical morning. Branch hydrALAZINE 2023-0 Yes 50mg Take 1 [facility] ers 50 mg 4-16 tablet by ity of tablet 14:15: mouth [place] [address] every 8 Medical (eight) Branch hours. acetaminoph 2023-0 Yes 1300mg Take 2 Un miracle en 650 mg 4-16 tablets by ity of CR tablet 14:15: mouth in [place] [address] the Medical morning Branch and 2 tablets at noon and 2 tablets in the evening. ferrous 2023-0 Yes 325mg Take 1 [facility] sulfate 325 4-16 tablet by ity of mg (65 mg 14:15: mouth in [facility]) 42 the Medical tablet morning. Branch KCL 10 mEq 2023-0 Yes 10meq Take 1 [facility] ers tablet 4-16 tablet by ity of 14:15: mouth in [place] [address] the Medical morning. Branch hydrALAZINE 2023-0 Yes 50mg Take 1 [facility] ers 50 mg 4-16 tablet by ity of tablet 14:15: mouth [place] [address] every 8 Medical (eight) Branch hours. acetaminoph 2023-0 Yes 1300mg Take 2 Un miracle en 650 mg 4-16 tablets by ity of CR tablet 14:15: mouth in [place] [address] the Medical morning Branch and 2 tablets at noon and 2 tablets in the evening. ferrous 2023-0 Yes 325mg Take 1 [facility] sulfate 325 4-16 tablet by ity of mg (65 mg 14:15: mouth in [facility]) 42 the Medical tablet morning. Branch KCL 10 mEq 2023-0 Yes 10meq Take 1 [facility] ers tablet 4-16 tablet by ity of 14:15: mouth in [place] [address] the Medical morning. Branch hydrALAZINE 2023-0 Yes 50mg Take 1 [facility] ers 50 mg 4-16 tablet by ity of tablet 14:15: mouth [place] [address] every 8 Medical (eight) Branch hours. acetaminoph 2023-0 Yes 1300mg Take 2 Un miracle en 650 mg 4-16 tablets by ity of CR tablet 14:15: mouth in [place] [address] the Medical morning Branch and 2 tablets at noon and 2 tablets in the evening. ferrous 2023-0 Yes 325mg Take 1 [facility] sulfate 325 4-16 tablet by ity of mg (65 mg 14:15: mouth in [facility]) 42 the Medical tablet morning. Branch KCL 10 mEq 2023-0 Yes 10meq Take 1 [facility] ers tablet 4-16 tablet by ity of 14:15: mouth in [place] 42 the Medical morning. Branch hydrALAZINE 2023-0 Yes 50mg Take 1 [facility] ers 50 mg 4-16 tablet by ity of tablet 14:15: mouth [place] [address] every 8 Medical (eight) Branch hours. acetaminoph 2023-0 Yes 1300mg Take 2 Un miracle en 650 mg 4-16 tablets by ity of CR tablet 14:15: mouth in [facility] 42 the Medical morning Branch and 2 tablets at noon and 2 tablets in the evening. ferrous 2023-0 Yes 325mg Take 1 [facility] sulfate 325 4-16 tablet by ity of mg (65 mg 14:15: mouth in [facility]) 42 the Medical tablet morning. Branch KCL 10 mEq 2023-0 Yes 10meq Take 1 [facility] ers tablet 4-16 tablet by ity of 14:15: mouth in [place] [address] the Medical morning. Branch hydrALAZINE 2023-0 Yes 50mg Take 1 [facility] ers 50 mg 4-16 tablet by ity of tablet 14:15: mouth [place] [address] every 8 Medical (eight) Branch hours. acetaminoph 2023-0 Yes 1300mg Take 2 Un miracle en 650 mg 4-16 tablets by ity of CR tablet 14:15: mouth in [place] [address] the Medical morning Branch and 2 tablets at noon and 2 tablets in the evening. ferrous 2023-0 Yes 325mg Take 1 [facility] sulfate 325 4-16 tablet by ity of mg (65 mg 14:15: mouth in [facility] iron) 42 the Medical tablet morning. Branch KCL 10 mEq 2023-0 Yes 10meq Take 1 [facility] ers tablet 4-16 tablet by ity of 14:15: mouth in [place] 42 the Medical morning. Branch hydrALAZINE 2023-0 Yes 50mg Take 1 [facility] ers 50 mg 4-16 tablet by ity of tablet 14:15: mouth [place] [address] every 8 Medical (eight) Branch hours. acetaminoph 2023-0 Yes 1300mg Take 2 Un miracle en 650 mg 4-16 tablets by ity of CR tablet 14:15: mouth in [place] [address] the Medical morning Branch and 2 tablets at noon and 2 tablets in the evening. ferrous 2023-0 Yes 325mg Take 1 [facility] sulfate 325 4-16 tablet by ity of mg (65 mg 14:15: mouth in [facility] iron) 42 the Medical tablet morning. Branch KCL 10 mEq 2023-0 Yes 10meq Take 1 [facility] ers tablet 4-16 tablet by ity of 14:15: mouth in [place] [address] the Medical morning. Branch hydrALAZINE 2023-0 Yes 50mg Take 1 [facility] ers 50 mg 4-16 tablet by ity of tablet 14:15: mouth [place] [address] every 8 Medical (eight) Branch hours. acetaminoph 2023-0 Yes 1300mg Take 2 [facility] miracle en 650 mg 4-16 tablets by ity of CR tablet 14:15: mouth in [place] [address] the Medical morning Branch and 2 tablets at noon and 2 tablets in the evening. ferrous 2023-0 Yes 325mg Take 1 [facility] sulfate 325 4-16 tablet by ity of mg (65 mg 14:15: mouth in [facility] iron) 42 the Medical tablet morning. Branch KCL 10 mEq 2023-0 Yes 10meq Take 1 [facility] ers tablet 4-16 tablet by ity of 14:15: mouth in [place] [address] the Medical morning. Branch hydrALAZINE 2023-0 Yes 50mg Take 1 [facility] ers 50 mg 4-16 tablet by ity of tablet 14:15: mouth [place] [address] every 8 Medical (eight) Branch hours. acetaminoph 2023-0 Yes 1300mg Take 2 [facility] miracle en 650 mg 4-16 tablets by ity of CR tablet 14:15: mouth in [place] [address] the Medical morning Branch and 2 tablets at noon and 2 tablets in the evening. ferrous 2023-0 Yes 325mg Take 1 [facility] sulfate 325 4-16 tablet by ity of mg (65 mg 14:15: mouth in [facility] iron) 42 the Medical tablet morning. Branch KCL 10 mEq 2023-0 Yes 10meq Take 1 [facility] ers tablet 4-16 tablet by ity of 14:15: mouth in [place] [address] the Medical morning. Branch hydrALAZINE 2023-0 Yes 50mg Take 1 [facility] ers 50 mg 4-16 tablet by ity of tablet 14:15: mouth [place] 42 every 8 Medical (eight) Branch hours. acetaminoph 2023-0 Yes 1300mg Take 2 Un miracle en 650 mg 4-16 tablets by ity of CR tablet 14:15: mouth in [facility] 42 the Medical morning Branch and 2 tablets at noon and 2 tablets in the evening. ferrous 2023-0 Yes 325mg Take 1 [facility] sulfate 325 4-16 tablet by ity of mg (65 mg 14:15: mouth in [facility] iron) 42 the Medical tablet morning. Branch KCL 10 mEq 2023-0 Yes 10meq Take 1 [facility] ers tablet 4-16 tablet by ity of 14:15: mouth in [place] 42 the Medical morning. Branch hydrALAZINE 2023-0 Yes 50mg Take 1 [facility] ers 50 mg 4-16 tablet by ity of tablet 14:15: mouth [place] 42 every 8 Medical (eight) Branch hours. acetaminoph 2023-0 Yes 1300mg Take 2 Un miracle en 650 mg 4-16 tablets by ity of CR tablet 14:15: mouth in [place] [address] the Medical morning Branch and 2 tablets at noon and 2 tablets in the evening. ferrous 2023-0 Yes 325mg Take 1 [facility] sulfate 325 4-16 tablet by ity of mg (65 mg 14:15: mouth in [facility] iron) 42 the Medical tablet morning. Branch KCL 10 mEq 2023-0 Yes 10meq Take 1 [facility] ers tablet 4-16 tablet by ity of 14:15: mouth in [place] [address] the Medical morning. Branch hydrALAZINE 2023-0 Yes 50mg Take 1 [facility] ers 50 mg 4-16 tablet by ity of tablet 14:15: mouth [place] [address] every 8 Medical (eight) Branch hours. acetaminoph 2023-0 Yes 1300mg Take 2 Un miracle en 650 mg 4-16 tablets by ity of CR tablet 14:15: mouth in [facility] 42 the Medical morning Branch and 2 tablets at noon and 2 tablets in the evening. ferrous 2023-0 Yes 325mg Take 1 [facility] sulfate 325 4-16 tablet by ity of mg (65 mg 14:15: mouth in [facility] iron) 42 the Medical tablet morning. Branch KCL 10 mEq 2023-0 Yes 10meq Take 1 [facility] ers tablet 4-16 tablet by ity of 14:15: mouth in [place] 42 the Medical morning. Branch hydrALAZINE 2023-0 Yes 50mg Take 1 [facility] ers 50 mg 4-16 tablet by ity of tablet 14:15: mouth [place] [address] every 8 Medical (eight) Branch hours. acetaminoph 2023-0 Yes 1300mg Take 2 Un miracle en 650 mg 4-16 tablets by ity of CR tablet 14:15: mouth in [place] [address] the Medical morning Branch and 2 tablets at noon and 2 tablets in the evening. ferrous 2023-0 Yes 325mg Take 1 [facility] sulfate 325 4-16 tablet by ity of mg (65 mg 14:15: mouth in [facility]) 42 the Medical tablet morning. Branch KCL 10 mEq 2023-0 Yes 10meq Take 1 Univ ers tablet 4-16 tablet by ity of 14:15: mouth in [place] [address] the Medical morning. Branch hydrALAZINE 2023-0 Yes 50mg Take 1 Univ ers 50 mg 4-16 tablet by ity of tablet 14:15: mouth [place] [address] every 8 Medical (eight) Branch hours. acetaminoph 2023-0 Yes 1300mg Take 2 Un miracle en 650 mg 4-16 tablets by ity of CR tablet 14:15: mouth in [place] [address] the Medical morning Branch and 2 tablets at noon and 2 tablets in the evening. ferrous 2023-0 Yes 325mg Take 1 [facility] sulfate 325 4-16 tablet by ity of mg (65 mg 14:15: mouth in [facility]) 42 the Medical tablet morning. Branch KCL 10 mEq 2023-0 Yes 10meq Take 1 Univ ers tablet 4-16 tablet by ity of 14:15: mouth in [place] [address] the Medical morning. Branch hydrALAZINE 2023-0 Yes 50mg Take 1 Univ ers 50 mg 4-16 tablet by ity of tablet 14:15: mouth [place] [address] every 8 Medical (eight) Branch hours. acetaminoph 2023-0 Yes 1300mg Take 2 Un miracle en 650 mg 4-16 tablets by ity of CR tablet 14:15: mouth in [place] [address] the Medical morning Branch and 2 tablets at noon and 2 tablets in the evening. ferrous 2023-0 Yes 325mg Take 1 [facility] sulfate 325 4-16 tablet by ity of mg (65 mg 14:15: mouth in [facility]) 42 the Medical tablet morning. Branch KCL 10 mEq 2023-0 Yes 10meq Take 1 Univ ers tablet 4-16 tablet by ity of 14:15: mouth in [place] [address] the Medical morning. Branch hydrALAZINE 2022-0 Yes 50mg Take 1 Univ ers 50 mg 4-16 tablet by ity of tablet 14:15: mouth [place] [address] every 8 Medical (eight) Branch hours. acetaminoph 3-0 Yes 1300mg Take 2 Un miracle en 650 mg 4-16 tablets by ity of CR tablet 14:15: mouth in [facility] 42 the Medical morning Branch and 2 tablets at noon and 2 tablets in the evening. ferrous 3-0 Yes 325mg Take 1 [facility] sulfate 325 4-16 tablet by ity of mg (65 mg 14:15: mouth in [facility]) the Medical tablet morning. Branch KCL 10 mEq 2022-0 Yes 10meq Take 1 Univ ers tablet 4-16 tablet by ity of 14:15: mouth in [place] [address] the Medical morning. Branch hydrALAZINE 2022-0 Yes 50mg Take 1 Univ ers 50 mg 4-16 tablet by ity of tablet 14:15: mouth [place] [address] every 8 Medical (eight) Branch hours. pantoprazol 0 Yes 40mg 40 mg, Univ ers e 4-16 Oral, ity of (PROTONIX) 06:00: DAILY, [facility] tablet 00 First dose Medi alise 40 mg on Sun Branch 09/23/22 at 0100, Until Discontinu ed, Routine nicotine 14 2022-0 2022- Yes [id number] 1{patch Apply 1 Univers mg/24 hr 4-16 05-17 } Patch to ity of patch 00:00: 04:59 area(s) [place] 00 :00 every 24 Medical (twenty-fo Branch ur) hours for 30 days. nicotine 14 2022-0 2022- Yes [id number] 1{patch Apply 1 Univers mg/24 hr 4-16 05-17 } Patch to ity of patch 00:00: 04:59 area(s) [place] 00 :00 every 24 Medical (twenty-fo Branch ur) hours for 30 days. nicotine 14 2022-0 2022- Yes [id number] 1{patch Apply 1 [facility] mg/24 hr 4-16 05-17 } Patch to ity of patch 00:00: 04:59 area(s) [place] 00 :00 every 24 Medical (twenty-fo Branch ur) hours for 30 days. nicotine 2022- Yes [id number] 1{patch Apply 1 Univers mg/24 hr 4-16 05-17 } Patch to ity of patch 00:00: 04:59 area(s) [place] 00 :00 every 24 Medical (twenty-fo Branch ur) hours for 30 days. nicotine 14 2022- Yes [id number] 1{patch Apply 1 Univers mg/24 hr 4-16 05-17 } Patch to ity of patch 00:00: 04:59 area(s) [place] 00 :00 every 24 Medical (twenty-fo Branch ur) hours for 30 days. nicotine 2022- Yes [id number] 1{patch Apply 1 [facility] mg/24 hr 4-16 05-17 } Patch to ity of patch 00:00: 04:59 area(s) [place] 00 :00 every 24 Medical (twenty-fo Branch ur) hours for 30 days. nicotine 2022- Yes [id number] 1{patch Apply 1 [facility] mg/24 hr 4-16 05-17 } Patch to ity of patch 00:00: 04:59 area(s) [place] 00 :00 every 24 Medical (twenty-fo Branch ur) hours for 30 days. nicotine 2022- Yes [id number] 1{patch Apply 1 Univers mg/24 hr 4-16 05-17 } Patch to ity of patch 00:00: 04:59 area(s) [place] 00 :00 every 24 Medical (twenty-fo Branch ur) hours for 30 days. nicotine 2022- Yes [id number] 1{patch Apply 1 Univers mg/24 hr 4-16 05-17 } Patch to ity of patch 00:00: 04:59 area(s) [place] 00 :00 every 24 Medical (twenty-fo Branch ur) hours for 30 days. nicotine 2022- Yes [id number] 1{patch Apply 1 Univers mg/24 hr 4-16 05-17 } Patch to ity of patch 00:00: 04:59 area(s) [place] 00 :00 every 24 Medical (twenty-fo Branch ur) hours for 30 days. nicotine 2022- Yes [id number] 1{patch Apply 1 [facility] mg/24 hr 4-16 05-17 } Patch to ity of patch 00:00: 04:59 area(s) [place] 00 :00 every 24 Medical (twenty-fo Branch ur) hours for 30 days. nicotine 14 2022- Yes [id number] 1{patch Apply 1 Univers mg/24 hr 4-16 05-17 } Patch to ity of patch 00:00: 04:59 area(s) [place] 00 :00 every 24 Medical (twenty-fo Branch ur) hours for 30 days. nicotine 2022- Yes [id number] 1{patch Apply 1 Univers mg/24 hr 4-16 05-17 } Patch to ity of patch 00:00: 04:59 area(s) [place] 00 :00 every 24 Medical (twenty-fo Branch ur) hours for 30 days. nicotine 14 2022- Yes [id number] 1{patch Apply 1 [facility] mg/24 hr 4-16 05-17 } Patch to ity of patch 00:00: 04:59 area(s) [place] 00 :00 every 24 Medical (twenty-fo Branch ur) hours for 30 days. nicotine 2022- Yes [id number] 1{patch Apply 1 [facility] mg/24 hr 4-16 05-17 } Patch to ity of patch 00:00: 04:59 area(s) [place] 00 :00 every 24 Medical (twenty-fo Branch ur) hours for 30 days. nicotine 2022- Yes [id number] 1{patch Apply 1 [facility] mg/24 hr 4-16 05-17 } Patch to ity of patch 00:00: 04:59 area(s) [place] 00 :00 every 24 Medical (twenty-fo Branch ur) hours for 30 days. gabapentin 2022- Yes [id number] 100mg Take 1 [facility] 100 mg 4-16 05-17 capsule by ity of capsule 00:00: 04:59 mouth in [place] 00 :00 the Medical morning Branch and 1 capsule at noon and 1 capsule in the evening. Do all this for 30 days. nicotine 14 2022- Yes [id number] 1{patch Apply 1 [facility] mg/24 hr 4-16 05-17 } Patch to ity of patch 00:00: 04:59 area(s) [place] 00 :00 every 24 Medical (twenty-fo Branch ur) hours for 30 days. warfarin 5 2022- Yes [id number] 5mg Take 1 [facility] mg tablet 4-16 05-17 tablet by ity of 00:00: 04:59 mouth [place] 00 :00 every Medical evening Branch for 30 days. gabapentin 2022- Yes [id number] 100mg Take 1 [facility] 100 mg 4-16 05-17 capsule by ity of capsule 00:00: 04:59 mouth in [place] 00 :00 the Medical morning Branch and 1 capsule at noon and 1 capsule in the evening. Do all this for 30 days. nicotine 14 2022- Yes [id number] 1{patch Apply 1 Univers mg/24 hr 4-16 05-17 } Patch to ity of patch 00:00: 04:59 area(s) [place] 00 :00 every 24 Medical ([facility] ur) hours for 30 days. warfarin 5 2022- Yes [id number] 5mg Take 1 Univers mg tablet 4-16 05-17 tablet by ity of 00:00: 04:59 mouth [place] 00 :00 every Medical evening Branch for 30 days. gabapentin 2022- Yes [id number] 100mg Take 1 [facility] 100 mg 4-16 05-17 capsule by ity of capsule 00:00: 04:59 mouth in [place] 00 :00 the Medical morning Branch and 1 capsule at noon and 1 capsule in the evening. Do all this for 30 days. nicotine 14 2022- Yes [id number] 1{patch Apply 1 [facility] mg/24 hr 4-16 05-17 } Patch to ity of patch 00:00: 04:59 area(s) [place] 00 :00 every 24 Medical ([facility] ur) hours for 30 days. warfarin 5 2022- Yes [id number] 5mg Take 1 [facility] mg tablet 4-16 05-17 tablet by ity of 00:00: 04:59 mouth [place] 00 :00 every Medical evening Branch for 30 days. gabapentin 2022- Yes [id number] 100mg Take 1 [facility] 100 mg 4-16 05-17 capsule by ity of capsule 00:00: 04:59 mouth in [place] 00 :00 the Medical morning Branch and 1 capsule at noon and 1 capsule in the evening. Do all this for 30 days. nicotine 14 2022- Yes [id number] 1{patch Apply 1 [facility] mg/24 hr 4-16 05-17 } Patch to ity of patch 00:00: 04:59 area(s) [place] 00 :00 every 24 Medical ([facility] ur) hours for 30 days. warfarin 5 2022- Yes [id number] 5mg Take 1 [facility] mg tablet 4-16 05-17 tablet by ity of 00:00: 04:59 mouth [place] 00 :00 every Medical evening Branch for 30 days. gabapentin 2022- Yes [id number] 100mg Take 1 [facility] 100 mg 4-16 05-17 capsule by ity of capsule 00:00: 04:59 mouth in [place] 00 :00 the Medical morning Branch and 1 capsule at noon and 1 capsule in the evening. Do all this for 30 days. nicotine 14 2022- Yes [id number] 1{patch Apply 1 [facility] mg/24 hr 4-16 05-17 } Patch to ity of patch 00:00: 04:59 area(s) [place] 00 :00 every 24 Medical ([facility] ur) hours for 30 days. warfarin 5 2022- Yes [id number] 5mg Take 1 [facility] mg tablet 4-16 05-17 tablet by ity of 00:00: 04:59 mouth [place] 00 :00 every Medical evening Branch for 30 days. gabapentin 2022- Yes [id number] 100mg Take 1 [facility] 100 mg 4-16 05-17 capsule by ity of capsule 00:00: 04:59 mouth in [place] 00 :00 the Medical morning Branch and 1 capsule at noon and 1 capsule in the evening. Do all this for 30 days. nicotine 14 2022- Yes [id number] 1{patch Apply 1 Univers mg/24 hr 4-16 05-17 } Patch to ity of patch 00:00: 04:59 area(s) [place] 00 :00 every 24 Medical ([facility] ur) hours for 30 days. warfarin 5 2022- Yes [id number] 5mg Take 1 [facility] mg tablet 4-16 05-17 tablet by ity of 00:00: 04:59 mouth [place] 00 :00 every Medical evening Branch for 30 days. gabapentin 2022- Yes [id number] 100mg Take 1 [facility] 100 mg 4-16 05-17 capsule by ity of capsule 00:00: 04:59 mouth in [place] 00 :00 the Medical morning Branch and 1 capsule at noon and 1 capsule in the evening. Do all this for 30 days. nicotine 14 2022- Yes [id number] 1{patch Apply 1 [facility] mg/24 hr 4-16 05-17 } Patch to ity of patch 00:00: 04:59 area(s) [place] 00 :00 every 24 Medical ([facility] ur) hours for 30 days. warfarin 5 2022- Yes [id number] 5mg Take 1 [facility] mg tablet 4-16 05-17 tablet by ity of 00:00: 04:59 mouth [place] 00 :00 every Medical evening Branch for 30 days. gabapentin 2022- Yes [id number] 100mg Take 1 [facility] 100 mg 4-16 05-17 capsule by ity of capsule 00:00: 04:59 mouth in [place] 00 :00 the Medical morning Branch and 1 capsule at noon and 1 capsule in the evening. Do all this for 30 days. nicotine 14 2022- Yes [id number] 1{patch Apply 1 [facility] mg/24 hr 4-16 05-17 } Patch to ity of patch 00:00: 04:59 area(s) [place] 00 :00 every 24 Medical ([facility] ur) hours for 30 days. gabapentin 2022- Yes [id number] 100mg Take 1 [facility] 100 mg 4-16 05-17 capsule by ity of capsule 00:00: 04:59 mouth in [place] 00 :00 the Medical morning Branch and 1 capsule at noon and 1 capsule in the evening. Do all this for 30 days. nicotine 14 2022- Yes [id number] 1{patch Apply 1 [facility] mg/24 hr 4-16 05-17 } Patch to ity of patch 00:00: 04:59 area(s) [place] 00 :00 every 24 Medical ([facility] ur) hours for 30 days. gabapentin 2022- Yes [id number] 100mg Take 1 [facility] 100 mg 4-16 05-17 capsule by ity of capsule 00:00: 04:59 mouth in [place] 00 :00 the Medical morning Branch and 1 capsule at noon and 1 capsule in the evening. Do all this for 30 days. nicotine 14 2022- Yes [id number] 1{patch Apply 1 [facility] mg/24 hr 4-16 05-17 } Patch to ity of patch 00:00: 04:59 area(s) [place] 00 :00 every 24 Medical (twenty-fo Branch ur) hours for 30 days. gabapentin 2022- Yes [id number] 100mg Take 1 [facility] 100 mg 4-16 05-17 capsule by ity of capsule 00:00: 04:59 mouth in [place] 00 :00 the Medical morning Branch and 1 capsule at noon and 1 capsule in the evening. Do all this for 30 days. nicotine 14 2022- Yes [id number] 1{patch Apply 1 [facility] mg/24 hr 4-16 05-17 } Patch to ity of patch 00:00: 04:59 area(s) [place] 00 :00 every 24 Medical [facility]) hours for 30 days. gabapentin 2022- Yes [id number] 100mg Take 1 [facility] 100 mg 4-16 05-17 capsule by ity of capsule 00:00: 04:59 mouth in [place] 00 :00 the Medical morning Branch and 1 capsule at noon and 1 capsule in the evening. Do all this for 30 days. nicotine 14 2022- Yes [id number] 1{patch Apply 1 [facility] mg/24 hr 4-16 05-17 } Patch to ity of patch 00:00: 04:59 area(s) [place] 00 :00 every 24 Medical ([facility] ur) hours for 30 days. gabapentin 2022- Yes [id number] 100mg Take 1 [facility] 100 mg 4-16 05-17 capsule by ity of capsule 00:00: 04:59 mouth in [place] 00 :00 the Medical morning Branch and 1 capsule at noon and 1 capsule in the evening. Do all this for 30 days. nicotine 14 2022- Yes [id number] 1{patch Apply 1 [facility] mg/24 hr 4-16 05-17 } Patch to ity of patch 00:00: 04:59 area(s) [place] 00 :00 every 24 Medical (twentyfo Branch ur) hours for 30 days. nicotine 14 2022- Yes [id number] 1{patch Apply 1 Univers mg/24 hr 4-16 05-17 } Patch to ity of patch 00:00: 04:59 area(s) [place] 00 :00 every 24 Medical (twenty-fo Branch ur) hours for 30 days. nicotine 2022- Yes [id number] 1{patch Apply 1 Univers mg/24 hr 4-16 05-17 } Patch to ity of patch 00:00: 04:59 area(s) [place] 00 :00 every 24 Medical (twenty-fo Branch ur) hours for 30 days. nicotine 2022- Yes [id number] 1{patch Apply 1 Univers mg/24 hr 4-16 05-17 } Patch to ity of patch 00:00: 04:59 area(s) [place] 00 :00 every 24 Medical (twenty-fo Branch ur) hours for 30 days. nicotine 2022- Yes [id number] 1{patch Apply 1 [facility] mg/24 hr 4-16 05-17 } Patch to ity of patch 00:00: 04:59 area(s) [place] 00 :00 every 24 Medical (twenty-fo Branch ur) hours for 30 days. nicotine 2022- Yes [id number] 1{patch Apply 1 [facility] mg/24 hr 4-16 05-17 } Patch to ity of patch 00:00: 04:59 area(s) [place] 00 :00 every 24 Medical (twenty-fo Branch ur) hours for 30 days. nicotine 2022- Yes [id number] 1{patch Apply 1 Univers mg/24 hr 4-16 05-17 } Patch to ity of patch 00:00: 04:59 area(s) [place] 00 :00 every 24 Medical (twenty-fo Branch ur) hours for 30 days. nicotine 2022- Yes [id number] 1{patch Apply 1 [facility] mg/24 hr 4-16 05-17 } Patch to ity of patch 00:00: 04:59 area(s) [place] 00 :00 every 24 Medical (twenty-fo Branch ur) hours for 30 days. nicotine 2022- Yes [id number] 1{patch Apply 1 [facility] mg/24 hr 4-16 05-17 } Patch to ity of patch 00:00: 04:59 area(s) [place] 00 :00 every 24 Medical (twenty-fo Branch ur) hours for 30 days. nicotine 2022- Yes [id number] 1{patch Apply 1 [facility] mg/24 hr 4-16 05-17 } Patch to ity of patch 00:00: 04:59 area(s) [place] 00 :00 every 24 Medical (twenty-fo Branch ur) hours for 30 days. nicotine 2022- Yes [id number] 1{patch Apply 1 Univers mg/24 hr 4-16 05-17 } Patch to ity of patch 00:00: 04:59 area(s) [place] 00 :00 every 24 Medical (twenty-fo Branch ur) hours for 30 days. nicotine 2022- Yes [id number] 1{patch Apply 1 [facility] mg/24 hr 4-16 05-17 } Patch to ity of patch 00:00: 04:59 area(s) [place] 00 :00 every 24 Medical (twenty-fo Branch ur) hours for 30 days. nicotine 2022- Yes [id number] 1{patch Apply 1 Univers mg/24 hr 4-16 05-17 } Patch to ity of patch 00:00: 04:59 area(s) [place] 00 :00 every 24 Medical (twenty-fo Branch ur) hours for 30 days. nicotine 2022- Yes [id number] 1{patch Apply 1 [facility] mg/24 hr 4-16 05-17 } Patch to ity of patch 00:00: 04:59 area(s) [place] 00 :00 every 24 Medical (twenty-fo Branch ur) hours for 30 days. nicotine 2022- Yes [id number] 1{patch Apply 1 [facility] mg/24 hr 4-16 05-17 } Patch to ity of patch 00:00: 04:59 area(s) [place] 00 :00 every 24 Medical (twenty-fo Branch ur) hours for 30 days. nicotine 2022- Yes [id number] 1{patch Apply 1 [facility] mg/24 hr 4-16 05-17 } Patch to ity of patch 00:00: 04:59 area(s) [place] 00 :00 every 24 Medical (twenty-fo Branch ur) hours for 30 days. nicotine 2022- Yes [id number] 1{patch Apply 1 Univers mg/24 hr 4-16 05-17 } Patch to ity of patch 00:00: 04:59 area(s) [place] 00 :00 every 24 Medical (twenty-fo Branch ur) hours for 30 days. nicotine 14 2022- Yes [id number] 1{patch Apply 1 [facility] mg/24 hr 4-16 05-17 } Patch to ity of patch 00:00: 04:59 area(s) [place] 00 :00 every 24 Medical (twenty-fo Branch ur) hours for 30 days. nicotine 14 2022- Yes [id number] 1{patch Apply 1 [facility] mg/24 hr 4-16 05-17 } Patch to ity of patch 00:00: 04:59 area(s) [place] 00 :00 every 24 Medical (twenty-fo Branch ur) hours for 30 days. nicotine 14 2022- Yes [id number] 1{patch Apply 1 Univers mg/24 hr 4-16 05-17 } Patch to ity of patch 00:00: 04:59 area(s) [place] 00 :00 every 24 Medical (twenty-fo Branch ur) hours for 30 days. gabapentin 2022- No [id number] 100mg Take 1 Univers 100 mg 09-23-24 capsule by ity of capsule 00:00: 00:00 mouth in [place] 00 :00 the Medical morning Branch and 1 capsule at noon and 1 capsule in the evening. Do all this for 30 days. gabapentin 2022-2022- No [id number] 100mg Take 1 Univers 100 mg 09-23-24 capsule by ity of capsule 00:00: 00:00 mouth in [place] 00 :00 the Medical morning Branch and 1 capsule at noon and 1 capsule in the evening. Do all this for 30 days. warfarin 5 2022- No [id number] 5mg Take 1 Univers mg tablet 09-23-19 tablet by ity of 00:00: 00:00 mouth [place] 00 :00 every Medical evening Branch for 30 days. enoxaparin Yes 1mg/kg 60 mg Univ ers (LOVENOX) 4-15 (rounded ity of injection 16:30: from 61.2 [place] 60 mg 00 mg = 1 Medical mg/kg Branch ?61.2 kg), Subcutaneo us, Q24H ABX, First dose on 09/22/22 at 1130, Until Discontinu ed, Routine fluticasone 2022-0 Yes 1{spray 1 [place], Univers propionate 4-15 } Nasal, ity of 50 14:00: DAILY, [place] mcg/actuati 00 First dose Me dical on nasal on [facility] Branch spray 1 09/22/22 at [place] 0900, Until Discontinu ed, Routine losartan 2022-0 Yes 50mg 50 mg, Univers (COZAAR) 4-15 Oral, ity of tablet 50 14:00: DAILY, [place] mg 00 First dose Medical on [facility] 09/22/22 at 0900, Until Discontinu ed, Routine furosemide 2022-0 Yes 40mg 40 mg, Unive rs (LASIX) 4-15 Oral, ity of tablet 40 14:00: DAILY, [place] mg 00 First dose Medical on [facility] 09/22/22 at 0900, Until Discontinu ed, Routine ferrous 0 Yes 325mg 325 mg, Univer s sulfate 4-15 Oral, ity of tablet 325 14:00: DAILY, [place] mg 00 First dose Medical on [facility] 09/22/22 at 0900, Until Discontinu ed, Routine cetirizine 0 Yes 5mg 5 mg, Univer s (ZYRTEC) 4-15 Oral, ity of tablet 5 mg 14:00: DAILY, [place] First dose Medical on [facility] 09/22/22 at 0900, Until Discontinu ed, Routine atorvastati 0 Yes 40mg 40 mg, Univ ers n (LIPITOR) 4-15 Oral, ity of tablet 40 14:00: DAILY, [place] mg 00 First dose Medical on [facility] 09/22/22 at 0900, Until Discontinu ed, Routine amLODIPine 0 Yes 10mg 10 mg, Unive rs (NORVASC) 4-15 Oral, ity of tablet 10 14:00: DAILY, [place] mg 00 First dose Medical on [facility] 09/22/22 at 0900, Until Discontinu ed, Routine ipratropium 2022-0 Yes .5mg 0.5 mg, Uni vers (ATROVENT) 4-15 Inhalation ity of 0.02 % 13:00: , TID, [place] nebulizer 00 First dose Medi alise solution (after Branch 0.5 mg last modificati on) on [facility] 4/15/23 at 0800, Until Discontinu ed carvediloL 2022-0 Yes 12.5mg 12.5 mg, U nivers (COREG) 4-15 Oral, BID ity of tablet 12.5 13:00: MEALS, [place] mg 00 First dose Medical on [facility] Branch 09/22/22 at 0800, Until Discontinu ed, Routine ketorolac 3-0 2023- No 10mg 10 mg, Unive rs (TORADOL) 4-15 04-15 Oral, ity of tablet 10 06:45: 06:13 ONCE, 1 [place] mg 00 :00 dose, On Medical [facility] 09/22/22 at 0145, Routine hydrALAZINE 2022-0 Yes 50mg 50 mg, Univ ers (APRESOLINE 4-15 Oral, Q8H, it y of ) tablet 50 03:00: First dose [place] mg 00 on Sat [facility] 09/21/22 at Branch 2200, Until Discontinu ed, Routine traZODone 2022-0 Yes 25mg 25 mg, Univer s (DESYREL) 4-15 Oral, QHS, ity of tablet 25 02:00: First dose [place] mg 00 on Sat [facility] 09/21/22 at Branch 2100, Until Discontinu ed, Routine acetaminoph 2022-0 Yes 650mg 650 mg, Un miracle en 4-15 Oral, TID, ity of (TYLENOL) 01:00: First dose [place] tablet 650 00 (after Medical mg last Branch modificati on) on [facility] 09/21/22 at 2000, Until Discontinu ed, Routine levalbutero 2022-0 Yes 1.25mg 1.25 mg, Univers l (XOPENEX) 4-15 Inhalation it y of nebulizer 01:00: , TID, [place] solution 00 First dose Medic al 1.25 mg on Sat [place] 09/21/22 at 2000, Until Discontinu ed, Routine gabapentin 2022-0 Yes 100mg 100 mg, Uni vers (NEURONTIN) 4-15 Oral, TID, it y of capsule 100 01:00: First dose [place] mg 00 on Sat [facility] 09/21/22 at Branch 2000, Until Discontinu ed, Routine nicotine 2022-0 Yes 1{patch 1 Patch, Un miracle (NICODERM) 4-15 } Topical, ity o f 14 mg/24 hr 01:00: Administer [place] patch 1 00 over 24 Medical Patch Hours, Branch Q24H, First dose on Sat09/21/22 at 1999, Until Discontinu ed, Routine budesonide- 0 Yes 2{puff} 2 Puff, Univers formoteroL 4-15 Inhalation ity of (SYMBICORT) 01:00: , BID, [place] 160-4.5 00 First dose Medica l mcg/actuati on Sat Branch on inhaler 09/21/22 at 2 Puff 1999, Until Discontinu ed ipratropium 0 2022- No .5mg 0.5 mg, Un miracle (ATROVENT) 15 04-15 Inhalation it y of 0.02 % 01:00: 12:05 , QID, [place] nebulizer 00 :06 First dose Medi alise solution on Sat Branch 0.5 mg 09/21/22 at 1999, Until Discontinu ed traMADoL 0 Yes 50mg 50 mg, Univers (ULTRAM) 4-15 Oral, ity of tablet 50 00:02: Q6HPRN, [place] mg 25 Starting Medical on Sat Branch 09/21/22 at 1902, Until Discontinu ed, Routine, Pain (scale 1-3) warfarin Yes 5mg 5 mg, Univers (COUMADIN) 4-14 Oral, ity of tablet 5 mg 22:00: DAILY AT [place] 00 1700, Medical First dose Branch on Sat09/21/22 at 1700, Until Discontinu ed, Routine
INR Goal Range: 2-3
IND ICATION (More than one indication for warfarin can be selected): DVT and/or PE hydralAZINE 0 Yes 10mg 10 mg, Univ ers (APRESOLINE 4-14 Slow IV ity o f ) injection 21:41: Push, [place] 10 mg 57 Q4HPRN, Medical Starting Branch on Sat09/21/22 at 1641, Until Discontinu ed, Routine, DBP=>10 0; SBP=>180, For SBP > 160 gabapentin 2022-0 2022- No 100mg 100 mg, Un miracle (NEURONTIN) 4-14 04-14 Oral, ity of capsule 100 17:30: 16:42 ONCE, 1 [place] mg 00 :00 dose, On Medical Fri Branch 09/21/22 at 1230, Routine enoxaparin 2022- No 1mg/kg 60 mg Uni vers (LOVENOX) 09-21 (rounded ity o f injection 16:30: 16:42 from 61.2 [place] 60 mg 00 :00 mg = 1 Medical mg/kg Branch ?61.2 kg), Subcutaneo us, ONCE, 1 dose, On 09/21/22 at 1130, [place] levalbutero 2022- No 1.25mg 1.25 mg, Univers l (XOPENEX) 09-21 Inhalation i ty of nebulizer 15:15: 14:32 , ONCE, 1 [place] solution 00 :00 dose, On Medical 1.25 mg Fri Branch 09/21/22 at 1015, Routine ipratropium 2022- No .5mg 0.5 mg, Un miracle (ATROVENT) 09-21 Inhalation it y of 0.02 % 15:15: 14:32 , ONCE, 1 [place] nebulizer 00 :00 dose, On Medica l solution Fri Branch 0.5 mg 09/21/22 at 1015, Routine furosemide 2022-0 Yes 40mg Take 1 Unive rs 40 mg 3-29 tablet by ity of tablet 00:00: mouth in [place] 00 the Medical morning. Branch losartan 50 3-0 Yes 50mg Take 1 Univ ers mg tablet 3-29 tablet by ity o f 00:00: mouth in [place] 00 the Medical morning. Branch furosemide 3-0 Yes 40mg Take 1 Unive rs 40 mg 3-29 tablet by ity of tablet 00:00: mouth in [place] 00 the Medical morning. Branch losartan 50 3-0 Yes 50mg Take 1 Univ ers mg tablet 3-29 tablet by ity o f 00:00: mouth in [place] 00 the Medical morning. Branch furosemide 2023-0 Yes 40mg Take 1 Unive rs 40 mg 3-29 tablet by ity of tablet 00:00: mouth in [place] 00 the Medical morning. Branch losartan 50 2023-0 Yes 50mg Take 1 Univ ers mg tablet 3-29 tablet by ity o f 00:00: mouth in [place] 00 the Medical morning. Branch furosemide 2023-0 Yes 40mg Take 1 Unive rs 40 mg 3-29 tablet by ity of tablet 00:00: mouth in [place] 00 the Medical morning. Branch losartan 50 2023-0 Yes 50mg Take 1 Univ ers mg tablet 3-29 tablet by ity o f 00:00: mouth in [place] the Medical morning. Branch furosemide 2023-0 Yes 40mg Take 1 Unive rs 40 mg 3-29 tablet by ity of tablet 00:00: mouth in [place] the Medical morning. Branch losartan 50 2023-0 Yes 50mg Take 1 Univ ers mg tablet 3-29 tablet by ity o f 00:00: mouth in [place] the Medical morning. Branch furosemide 2023-0 Yes 40mg Take 1 Unive rs 40 mg 3-29 tablet by ity of tablet 00:00: mouth in [place] the Medical morning. Branch losartan 50 2023-0 Yes 50mg Take 1 Univ ers mg tablet 3-29 tablet by ity o f 00:00: mouth in [place] the [facility] morning. Branch furosemide 2023-0 Yes 40mg Take 1 [facility] 40 mg 3-29 tablet by [facility] tablet 00:00: mouth in [place] the [facility] morning. Branch losartan 50 2023-0 Yes 50mg Take 1 [facility] mg tablet 3-29 tablet by [facility] f 00:00: mouth in [place] the [facility] morning. Branch furosemide 2023-0 Yes 40mg Take 1 [facility] 40 mg 3-29 tablet by [facility] tablet 00:00: mouth in [place] the Medical morning. Branch losartan 50 2023-0 Yes 50mg Take 1 [facility] mg tablet 3-29 tablet by [facility] f 00:00: mouth in [place] the Medical morning. Branch furosemide 2023-0 Yes 40mg Take 1 [facility] 40 mg 3-29 tablet by [facility] tablet 00:00: mouth in [place] the Medical morning. Branch losartan 50 2023-0 Yes 50mg Take 1 [facility] mg tablet 3-29 tablet by [facility] f 00:00: mouth in [place] 00 the Medical morning. Branch furosemide 2023-0 Yes 40mg Take 1 [facility] 40 mg 3-29 tablet by [facility] tablet 00:00: mouth in [place] the Medical morning. Branch losartan 50 2023-0 Yes 50mg Take 1 [facility] mg tablet 3-29 tablet by [facility] f 00:00: mouth in [place] the Medical morning. Branch furosemide 2023-0 Yes 40mg Take 1 [facility] 40 mg 3-29 tablet by [facility] tablet 00:00: mouth in [place] the Medical morning. Branch losartan 50 2023-0 Yes 50mg Take 1 [facility] mg tablet 3-29 tablet by [facility] f 00:00: mouth in [place] the [facility] morning. Branch furosemide 2023-0 Yes 40mg Take 1 [facility] 40 mg 3-29 tablet by [facility] tablet 00:00: mouth in [place] the Medical morning. Branch losartan 50 2023-0 Yes 50mg Take 1 [facility] mg tablet 3-29 tablet by [facility] f 00:00: mouth in [place] the [facility] morning. Branch furosemide 2023-0 Yes 40mg Take 1 [facility] 40 mg 3-29 tablet by [facility] tablet 00:00: mouth in [place] the Medical morning. Branch losartan 50 2023-0 Yes 50mg Take 1 [facility] mg tablet 3-29 tablet by [facility] f 00:00: mouth in [place] the Medical morning. Branch furosemide 2023-0 Yes 40mg Take 1 [facility] 40 mg 3-29 tablet by [facility] tablet 00:00: mouth in [place] the Medical morning. Branch losartan 50 2023-0 Yes 50mg Take 1 [facility] mg tablet 3-29 tablet by [facility] f 00:00: mouth in [place] the [facility] morning. Branch furosemide 2023-0 Yes 40mg Take 1 [facility] 40 mg 3-29 tablet by [facility] tablet 00:00: mouth in [place] the Medical morning. Branch losartan 50 2023-0 Yes 50mg Take 1 [facility] mg tablet 3-29 tablet by [facility] f 00:00: mouth in [place] the [facility] morning. Branch furosemide 2023-0 Yes 40mg Take 1 [facility] 40 mg 3-29 tablet by [facility] tablet 00:00: mouth in [place] the Medical morning. Branch losartan 50 2023-0 Yes 50mg Take 1 [facility] mg tablet 3-29 tablet by [facility] f 00:00: mouth in [place] the [facility] morning. Branch furosemide 2023-0 Yes 40mg Take 1 [facility] 40 mg 3-29 tablet by [facility] tablet 00:00: mouth in [place] the [facility] morning. Branch losartan 50 2023-0 Yes 50mg Take 1 [facility] mg tablet 3-29 tablet by [facility] f 00:00: mouth in [place] 00 the Medical morning. Branch furosemide 2023-0 Yes 40mg Take 1 [facility] 40 mg 3-29 tablet by [facility] tablet 00:00: mouth in [place] the Medical morning. Branch losartan 50 2023-0 Yes 50mg Take 1 [facility] mg tablet 3-29 tablet by [facility] f 00:00: mouth in [place] the [facility] morning. Branch furosemide 2023-0 Yes 40mg Take 1 [facility] 40 mg 3-29 tablet by [facility] tablet 00:00: mouth in [place] 00 the Medical morning. Branch losartan 50 2023-0 Yes 50mg Take 1 [facility] mg tablet 3-29 tablet by [facility] f 00:00: mouth in [place] the [facility] morning. Branch furosemide 2023-0 Yes 40mg Take 1 [facility] 40 mg 3-29 tablet by [facility] tablet 00:00: mouth in [place] the [facility] morning. Branch losartan 50 2023-0 Yes 50mg Take 1 [facility] mg tablet 3-29 tablet by [facility] f 00:00: mouth in [place] the [facility] morning. Branch furosemide 2023-0 Yes 40mg Take 1 [facility] 40 mg 3-29 tablet by [facility] tablet 00:00: mouth in [place] the [facility] morning. Branch losartan 50 2023-0 Yes 50mg Take 1 [facility] mg tablet 3-29 tablet by [facility] f 00:00: mouth in [place] the [facility] morning. Branch furosemide 2023-0 Yes 40mg Take 1 [facility] 40 mg 3-29 tablet by [facility] tablet 00:00: mouth in [place] the [facility] morning. Branch losartan 50 2023-0 Yes 50mg Take 1 [facility] mg tablet 3-29 tablet by [facility] f 00:00: mouth in [place] the [facility] morning. Branch furosemide 2023-0 Yes 40mg Take 1 [facility] 40 mg 3-29 tablet by [facility] tablet 00:00: mouth in [place] 00 the Medical morning. Branch losartan 50 2023-0 Yes 50mg Take 1 [facility] mg tablet 3-29 tablet by [facility] f 00:00: mouth in [place] 00 the Medical morning. Branch furosemide 2023-0 Yes 40mg Take 1 [facility] 40 mg 3-29 tablet by [facility] tablet 00:00: mouth in [place] the [facility] morning. Branch losartan 50 2023-0 Yes 50mg Take 1 [facility] mg tablet 3-29 tablet by [facility] f 00:00: mouth in [place] the [facility] morning. Branch furosemide 2023-0 Yes 40mg Take 1 [facility] 40 mg 3-29 tablet by [facility] tablet 00:00: mouth in [place] the [facility] morning. Branch losartan 50 2023-0 Yes 50mg Take 1 [facility] mg tablet 3-29 tablet by [facility] f 00:00: mouth in [place] the [facility] morning. Branch furosemide 2023-0 Yes 40mg Take 1 [facility] 40 mg 3-29 tablet by [facility] tablet 00:00: mouth in [place] the [facility] morning. Branch losartan 50 2023-0 Yes 50mg Take 1 [facility] mg tablet 3-29 tablet by [facility] f 00:00: mouth in [place] the [facility] morning. Branch furosemide 2023-0 Yes 40mg Take 1 [facility] 40 mg 3-29 tablet by [facility] tablet 00:00: mouth in [place] the [facility] morning. Branch losartan 50 2023-0 Yes 50mg Take 1 [facility] mg tablet 3-29 tablet by [facility] f 00:00: mouth in [place] the [facility] morning. Branch furosemide 2023-0 Yes 40mg Take 1 [facility] 40 mg 3-29 tablet by [facility] tablet 00:00: mouth in [place] the [facility] morning. Branch losartan 50 2023-0 Yes 50mg Take 1 [facility] mg tablet 3-29 tablet by [facility] f 00:00: mouth in [place] the [facility] morning. Branch furosemide 2023-0 Yes 40mg Take 1 [facility] 40 mg 3-29 tablet by [facility] tablet 00:00: mouth in [place] the [facility] morning. Branch losartan 50 2023-0 Yes 50mg Take 1 [facility] mg tablet 3-29 tablet by [facility] f 00:00: mouth in [place] the [facility] morning. Branch furosemide 2023-0 Yes 40mg Take 1 [facility] 40 mg 3-29 tablet by [facility] tablet 00:00: mouth in [place] the [facility] morning. Branch losartan 50 2023-0 Yes 50mg Take 1 [facility] mg tablet 3-29 tablet by [facility] f 00:00: mouth in [place] the [facility] morning. Branch furosemide 2023-0 Yes 40mg Take 1 [facility] 40 mg 3-29 tablet by [facility] tablet 00:00: mouth in [place] 00 the Medical morning. Branch losartan 50 2023-0 Yes 50mg Take 1 [facility] mg tablet 3-29 tablet by [facility] f 00:00: mouth in [place] the [facility] morning. Branch furosemide 2023-0 Yes 40mg Take 1 [facility] 40 mg 3-29 tablet by [facility] tablet 00:00: mouth in [place] the [facility] morning. Branch losartan 50 2023-0 Yes 50mg Take 1 [facility] mg tablet 3-29 tablet by [facility] f 00:00: mouth in [place] the [facility] morning. Branch furosemide 2023-0 Yes 40mg Take 1 [facility] 40 mg 3-29 tablet by [facility] tablet 00:00: mouth in [place] the [facility] morning. Branch losartan 50 2023-0 Yes 50mg Take 1 [facility] mg tablet 3-29 tablet by [facility] f 00:00: mouth in [place] the [facility] morning. Branch furosemide 2023-0 Yes 40mg Take 1 [facility] 40 mg 3-29 tablet by [facility] tablet 00:00: mouth in [place] the [facility] morning. Branch losartan 50 2023-0 Yes 50mg Take 1 [facility] mg tablet 3-29 tablet by [facility] f 00:00: mouth in [place] the [facility] morning. Branch furosemide 2023-0 Yes 40mg Take 1 [facility] 40 mg 3-29 tablet by [facility] tablet 00:00: mouth in [place] the [facility] morning. Branch losartan 50 2023-0 Yes 50mg Take 1 [facility] mg tablet 3-29 tablet by [facility] f 00:00: mouth in [place] the [facility] morning. Branch furosemide 2023-0 Yes 40mg Take 1 [facility] 40 mg 3-29 tablet by [facility] tablet 00:00: mouth in [place] the [facility] morning. Branch losartan 50 2023-0 Yes 50mg Take 1 [facility] mg tablet 3-29 tablet by [facility] f 00:00: mouth in [place] the [facility] morning. Branch furosemide 2023-0 Yes 40mg Take 1 [facility] 40 mg 3-29 tablet by [facility] tablet 00:00: mouth in [place] the [facility] morning. Branch losartan 50 2023-0 Yes 50mg Take 1 [facility] mg tablet 3-29 tablet by [facility] f 00:00: mouth in [place] 00 the Medical morning. Branch furosemide 2023-0 Yes 40mg Take 1 [facility] 40 mg 3-29 tablet by [facility] tablet 00:00: mouth in [place] 00 the Medical morning. Branch losartan 50 2023-0 Yes 50mg Take 1 [facility] mg tablet 3-29 tablet by [facility] f 00:00: mouth in [place] the [facility] morning. Branch furosemide 2023-0 Yes 40mg Take 1 [facility] 40 mg 3-29 tablet by [facility] tablet 00:00: mouth in [place] 00 the Medical morning. Branch losartan 50 2023-0 Yes 50mg Take 1 [facility] mg tablet 3-29 tablet by [facility] f 00:00: mouth in [place] the [facility] morning. Branch furosemide 2023-0 Yes 40mg Take 1 [facility] 40 mg 3-29 tablet by [facility] tablet 00:00: mouth in [place] the [facility] morning. Branch losartan 50 2023-0 Yes 50mg Take 1 [facility] mg tablet 3-29 tablet by [facility] f 00:00: mouth in [place] the [facility] morning. Branch losartan 50 2023-0 Yes 50mg Take 1 [facility] mg tablet 3-29 tablet by [facility] f 00:00: mouth in [place] the [facility] morning. Branch losartan 50 2023-0 Yes 50mg Take 1 [facility] mg tablet 3-29 tablet by [facility] f 00:00: mouth in [place] the Medical morning. Branch losartan 50 2023-0 Yes 50mg Take 1 [facility] mg tablet 3-29 tablet by [facility] f 00:00: mouth in [place] the [facility] morning. Branch losartan 50 2023-0 Yes 50mg Take 1 [facility] mg tablet 3-29 tablet by [facility] f 00:00: mouth in [place] the [facility] morning. Branch furosemide 2023-0 Yes 40mg Take 1 [facility] 40 mg 3-29 tablet by [facility] tablet 00:00: mouth in [place] 00 the Medical morning. Branch losartan 50 2023-0 Yes 50mg Take 1 [facility] mg tablet 3-29 tablet by [facility] f 00:00: mouth in [place] 00 the Medical morning. Branch furosemide 2023-0 Yes 40mg Take 1 [facility] 40 mg 3-29 tablet by [facility] tablet 00:00: mouth in [place] 00 the Medical morning. Branch losartan 50 2023-0 Yes 50mg Take 1 [facility] mg tablet 3-29 tablet by [facility] f 00:00: mouth in [place] the [facility] morning. Branch furosemide 2023-0 Yes 40mg Take 1 [facility] 40 mg 3-29 tablet by [facility] tablet 00:00: mouth in [place] the [facility] morning. Branch losartan 50 2023-0 Yes 50mg Take 1 [facility] mg tablet 3-29 tablet by [facility] f 00:00: mouth in [place] the [facility] morning. Branch furosemide 2023-0 Yes 40mg Take 1 [facility] 40 mg 3-29 tablet by [facility] tablet 00:00: mouth in [place] the [facility] morning. Branch losartan 50 2023-0 Yes 50mg Take 1 [facility] mg tablet 3-29 tablet by [facility] f 00:00: mouth in [place] the [facility] morning. Branch furosemide 2023-0 Yes 40mg Take 1 [facility] 40 mg 3-29 tablet by [facility] tablet 00:00: mouth in [place] the [facility] morning. Branch losartan 50 2023-0 Yes 50mg Take 1 [facility] mg tablet 3-29 tablet by [facility] f 00:00: mouth in [place] the [facility] morning. Branch furosemide 2023-0 Yes 40mg Take 1 [facility] 40 mg 3-29 tablet by [facility] tablet 00:00: mouth in [place] the [facility] morning. Branch losartan 50 2023-0 Yes 50mg Take 1 [facility] mg tablet 3-29 tablet by [facility] f 00:00: mouth in [place] the [facility] morning. Branch furosemide 2023-0 Yes 40mg Take 1 [facility] 40 mg 3-29 tablet by [facility] tablet 00:00: mouth in [place] the [facility] morning. Branch losartan 50 2023-0 Yes 50mg Take 1 [facility] mg tablet 3-29 tablet by [facility] f 00:00: mouth in [place] the [facility] morning. Branch furosemide 2023-0 Yes 40mg Take 1 [facility] 40 mg 3-29 tablet by [facility] tablet 00:00: mouth in [place] the [facility] morning. Branch losartan 50 2023-0 Yes 50mg Take 1 [facility] mg tablet 3-29 tablet by [facility] f 00:00: mouth in [place] the [facility] morning. Branch furosemide 2023-0 Yes 40mg Take 1 [facility] 40 mg 3-29 tablet by [facility] tablet 00:00: mouth in [place] 00 the Medical morning. Branch losartan 50 2023-0 Yes 50mg Take 1 [facility] mg tablet 3-29 tablet by [facility] f 00:00: mouth in [place] the [facility] morning. Branch furosemide 2023-0 Yes 40mg Take 1 [facility] 40 mg 3-29 tablet by [facility] tablet 00:00: mouth in [place] the [facility] morning. Branch losartan 50 2023-0 Yes 50mg Take 1 [facility] mg tablet 3-29 tablet by [facility] f 00:00: mouth in [place] the [facility] morning. Branch furosemide 2023-0 Yes 40mg Take 1 [facility] 40 mg 3-29 tablet by [facility] tablet 00:00: mouth in [place] the [facility] morning. Branch losartan 50 2023-0 Yes 50mg Take 1 [facility] mg tablet 3-29 tablet by [facility] f 00:00: mouth in [place] the [facility] morning. Branch furosemide 2023-0 Yes 40mg Take 1 [facility] 40 mg 3-29 tablet by [facility] tablet 00:00: mouth in [place] the [facility] morning. Branch losartan 50 2023-0 Yes 50mg Take 1 [facility] mg tablet 3-29 tablet by [facility] f 00:00: mouth in [place] the [facility] morning. Branch furosemide 2023-0 Yes 40mg Take 1 [facility] 40 mg 3-29 tablet by [facility] tablet 00:00: mouth in [place] the [facility] morning. Branch losartan 50 2023-0 Yes 50mg Take 1 [facility] mg tablet 3-29 tablet by [facility] f 00:00: mouth in [place] the [facility] morning. Branch furosemide 2023-0 Yes 40mg Take 1 [facility] 40 mg 3-29 tablet by [facility] tablet 00:00: mouth in [place] the [facility] morning. Branch losartan 50 2023-0 Yes 50mg Take 1 [facility] mg tablet 3-29 tablet by [facility] f 00:00: mouth in [place] the [facility] morning. Branch furosemide 2023-0 Yes 40mg Take 1 [facility] 40 mg 3-29 tablet by [facility] tablet 00:00: mouth in [place] the [facility] morning. Branch losartan 50 2023-0 Yes 50mg Take 1 [facility] mg tablet 3-29 tablet by [facility] f 00:00: mouth in [place] the [facility] morning. Branch furosemide 2023-0 Yes 40mg Take 1 [facility] 40 mg 3-29 tablet by [facility] tablet 00:00: mouth in [place] the [facility] morning. Branch losartan 50 2023-0 Yes 50mg Take 1 [facility] mg tablet 3-29 tablet by [facility] f 00:00: mouth in [place] the [facility] morning. Branch furosemide 2023-0 Yes 40mg Take 1 [facility] 40 mg 3-29 tablet by [facility] tablet 00:00: mouth in [place] the [facility] morning. Branch losartan 50 2023-0 Yes 50mg Take 1 [facility] mg tablet 3-29 tablet by [facility] f 00:00: mouth in [place] the [facility] morning. Branch furosemide 2023-0 Yes 40mg Take 1 [facility] 40 mg 3-29 tablet by [facility] tablet 00:00: mouth in [place] the [facility] morning. Branch losartan 50 2023-0 Yes 50mg Take 1 [facility] mg tablet 3-29 tablet by [facility] f 00:00: mouth in [place] the [facility] morning. Branch furosemide 2023-0 Yes 40mg Take 1 [facility] 40 mg 3-29 tablet by [facility] tablet 00:00: mouth in [place] the [facility] morning. Branch losartan 50 2023-0 Yes 50mg Take 1 [facility] mg tablet 3-29 tablet by [facility] f 00:00: mouth in [place] the [facility] morning. Branch furosemide 2023-0 Yes 40mg Take 1 [facility] 40 mg 3-29 tablet by [facility] tablet 00:00: mouth in [place] the [facility] morning. Branch losartan 50 2023-0 Yes 50mg Take 1 [facility] mg tablet 3-29 tablet by [facility] f 00:00: mouth in [place] the [facility] morning. Branch furosemide 2023-0 Yes 40mg Take 1 [facility] 40 mg 3-29 tablet by [facility] tablet 00:00: mouth in [place] the [facility] morning. Branch losartan 50 2023-0 Yes 50mg Take 1 [facility] mg tablet 3-29 tablet by [facility] f 00:00: mouth in [place] the [facility] morning. Branch furosemide 2023-0 Yes 40mg Take 1 [facility] 40 mg 3-29 tablet by [facility] tablet 00:00: mouth in [place] the [facility] morning. Branch losartan 50 2023-0 Yes 50mg Take 1 [facility] mg tablet 3-29 tablet by [facility] f 00:00: mouth in [place] the [facility] morning. Branch furosemide 2023-0 Yes 40mg Take 1 [facility] 40 mg 3-29 tablet by [facility] tablet 00:00: mouth in [place] the [facility] morning. Branch losartan 50 2023-0 Yes 50mg Take 1 [facility] mg tablet 3-29 tablet by [facility] f 00:00: mouth in [place] the [facility] morning. Branch furosemide 2023-0 Yes 40mg Take 1 [facility] 40 mg 3-29 tablet by [facility] tablet 00:00: mouth in [place] the [facility] morning. Branch losartan 50 2023-0 Yes 50mg Take 1 [facility] mg tablet 3-29 tablet by [facility] f 00:00: mouth in [place] the [facility] morning. Branch furosemide 2023-0 Yes 40mg Take 1 [facility] 40 mg 3-29 tablet by [facility] tablet 00:00: mouth in [place] the Medical morning. Branch losartan 50 2023-0 Yes 50mg Take 1 [facility] mg tablet 3-29 tablet by [facility] f 00:00: mouth in [place] the [facility] morning. Branch furosemide 2023-0 Yes 40mg Take 1 [facility] 40 mg 3-29 tablet by [facility] tablet 00:00: mouth in [place] the Medical morning. Branch losartan 50 2023-0 Yes 50mg Take 1 [facility] mg tablet 3-29 tablet by [facility] f 00:00: mouth in [place] the [facility] morning. Branch furosemide 2023-0 Yes 40mg Take 1 [facility] 40 mg 3-29 tablet by [facility] tablet 00:00: mouth in [place] the Medical morning. Branch losartan 50 2023-0 Yes 50mg Take 1 [facility] mg tablet 3-29 tablet by [facility] f 00:00: mouth in [place] the Medical morning. Branch furosemide 2023-0 Yes 40mg Take 1 [facility] 40 mg 3-29 tablet by [facility] tablet 00:00: mouth in [place] the Medical morning. Branch losartan 50 2023-0 Yes 50mg Take 1 [facility] mg tablet 3-29 tablet by [facility] f 00:00: mouth in [place] the Medical morning. Branch furosemide 2023-0 Yes 40mg Take 1 [facility] 40 mg 3-29 tablet by [facility] tablet 00:00: mouth in [place] the Medical morning. Branch losartan 50 2023-0 Yes 50mg Take 1 [facility] mg tablet 3-29 tablet by [facility] f 00:00: mouth in [place] 00 the Medical morning. Branch furosemide 2023-0 Yes 40mg Take 1 [facility] 40 mg 3-29 tablet by [facility] tablet 00:00: mouth in [place] the Medical morning. Branch losartan 50 2023-0 Yes 50mg Take 1 [facility] mg tablet 3-29 tablet by [facility] f 00:00: mouth in [place] the Medical morning. Branch furosemide 2023-0 Yes 40mg Take 1 [facility] 40 mg 3-29 tablet by [facility] tablet 00:00: mouth in [place] the Medical morning. Branch losartan 50 2023-0 Yes 50mg Take 1 [facility] mg tablet 3-29 tablet by [facility] f 00:00: mouth in [place] the Medical morning. Branch furosemide 2023-0 Yes 40mg Take 1 [facility] 40 mg 3-29 tablet by [facility] tablet 00:00: mouth in [place] the Medical morning. Branch losartan 50 2023-0 Yes 50mg Take 1 [facility] mg tablet 3-29 tablet by [facility] f 00:00: mouth in [place] the [facility] morning. Branch furosemide 2023-0 Yes 40mg Take 1 [facility] 40 mg 3-29 tablet by [facility] tablet 00:00: mouth in [place] the Medical morning. Branch losartan 50 2023-0 Yes 50mg Take 1 [facility] mg tablet 3-29 tablet by [facility] f 00:00: mouth in [place] the Medical morning. Branch furosemide 2023-0 Yes 40mg Take 1 [facility] 40 mg 3-29 tablet by [facility] tablet 00:00: mouth in [place] the Medical morning. Branch losartan 50 2023-0 Yes 50mg Take 1 [facility] mg tablet 3-29 tablet by [facility] f 00:00: mouth in [place] the Medical morning. Branch furosemide 2023-0 Yes 40mg Take 1 [facility] 40 mg 3-29 tablet by [facility] tablet 00:00: mouth in [place] the Medical morning. Branch losartan 50 2023-0 Yes 50mg Take 1 [facility] mg tablet 3-29 tablet by [facility] f 00:00: mouth in [place] the Medical morning. Branch furosemide 2023-0 Yes 40mg Take 1 [facility] 40 mg 3-29 tablet by [facility] tablet 00:00: mouth in [place] 00 the Medical morning. Branch losartan 50 2023-0 Yes 50mg Take 1 [facility] mg tablet 3-29 tablet by [facility] o f 00:00: mouth in [place] 00 the Medical morning. Branch furosemide 2023-0 Yes 40mg Take 1 [facility] 40 mg 3-29 tablet by [facility] tablet 00:00: mouth in [place] 00 the Medical morning. Branch losartan 50 2023-0 Yes 50mg Take 1 [facility] mg tablet 3-29 tablet by [facility] o f 00:00: mouth in [place] the Medical morning. Branch furosemide 2023-0 Yes 40mg Take 1 [facility] 40 mg 3-29 tablet by [facility] tablet 00:00: mouth in [place] the Medical morning. Branch losartan 50 2023-0 Yes 50mg Take 1 [facility] mg tablet 3-29 tablet by [facility] f 00:00: mouth in [place] the Medical morning. Branch furosemide 2023-0 Yes 40mg Take 1 [facility] 40 mg 3-29 tablet by [facility] tablet 00:00: mouth in [place] the Medical morning. Branch losartan 50 2023-0 Yes 50mg Take 1 [facility] mg tablet 3-29 tablet by [facility] o f 00:00: mouth in [place] the Medical morning. Branch furosemide 2023-0 Yes 40mg Take 1 [facility] 40 mg 3-29 tablet by [facility] tablet 00:00: mouth in [place] the Medical morning. Branch losartan 50 2023-0 Yes 50mg Take 1 [facility] mg tablet 3-29 tablet by [facility] f 00:00: mouth in [place] the Medical morning. Branch furosemide 2023-0 Yes 40mg Take 1 [facility] 40 mg 3-29 tablet by [facility] tablet 00:00: mouth in [place] 00 the Medical morning. Branch losartan 50 2023-0 Yes 50mg Take 1 [facility] mg tablet 3-29 tablet by [facility] o f 00:00: mouth in [place] 00 the Medical morning. Branch losartan 50 2023-0 2023- No 50mg Take 1 [facility] mg tablet 3-29 06-28 tablet by [facility] of 00:00: 00:00 mouth in [place] 00 :00 the Medical morning. Branch furosemide 2023-0 2023- No 40mg Take 1 [facility] 40 mg 3-29 06-15 tablet by [facility] tablet 00:00: 00:00 mouth in [place] 00 :00 the Medical morning. Branch furosemide 2023-0 2023- No 40mg Take 1 [facility] 40 mg 09-05 06-15 tablet by [facility] tablet 00:00: 00:00 mouth in [place] 00 :00 the Medical morning. Branch ergocalcife 2023-0 2023- No [id number] Take 1 [facility], 3-25 04-24 capsule by [facility] vitamin d2, 00:00[place] 04[place] 1[place]250 mcg 00 :00 weekly for [facility]i [facility] (50,000 5 doses. Branch unit) capsule ergocalcife 3-0 2023- No [id number] Take 1 [facility], 3-25 04-24 capsule by [facility] vitamin d2, 00:00: 04:59 [place] 1,250 mcg 00 :00 weekly for Medi al[facility] (50,000 5 doses. Branch unit) capsule ergocalcife 2023-0 2023- No [id number] Take 1 [facility], 3-25 04-24 capsule by [facility] vitamin d2, 00:00: 04:59 [place] 1,250 mcg 00 :00 weekly for [facility]i al[facility] (50,000 5 doses. Branch unit) capsule ergocalcife 3-0 2023- No [id number] Take 1 [facility], 3-25 04-24 capsule by [facility] vitamin d2, 00:00: 04:59 [place] 1,250 mcg 00 :00 weekly for Medi al[facility] (50,000 5 doses. Branch unit) capsule ergocalcife 3-0 2023- No [id number] Take 1 [facility], 3-25 04-24 capsule by [facility] vitamin d2, 00:00: 04:59 [place] 1,250 mcg 00 :00 weekly for Medi al[facility] (50,000 5 doses. Branch unit) capsule ergocalcife 2023-0 2023- No [id number] Take 1 [facility], 3-25 04-24 capsule by [facility] vitamin d2, 00:00: 04:59 [place] 1,250 mcg 00 :00 weekly for Medi al[facility] (50,000 5 doses. Branch unit) capsule ergocalcife 2023-0 2023- No [id number] Take 1 [facility], 3-25 04-24 capsule by [facility] vitamin d2, 00:00: 04:59 mouth [place] 1,250 mcg 00 :00 weekly for Medi al[facility] (50,000 5 doses. Branch unit) capsule ergocalcife 2022-0 3- No [id number] Take 1 [facility], 3-25 04-24 capsule by [facility] vitamin d2, 00:00: 04:59 [place] 1,250 mcg 00 :00 weekly for Medi al[facility] (50,000 5 doses. Branch unit) capsule ergocalcife 2022-0 3- No [id number] Take 1 [facility], 3-25 04-24 capsule by [facility] vitamin d2, 00:00: 04:59 [place] 1,250 mcg 00 :00 weekly for Medi al[facility] (50,000 5 doses. Branch unit) capsule ergocalcife 2022-0 3- No [id number] Take 1 [facility], 3-25 04-24 capsule by [facility] vitamin d2, 00:00: 04:59 [place] 1,250 mcg 00 :00 weekly for Medi al[facility] (50,000 5 doses. Branch unit) capsule ergocalcife 2022-0 3- No [id number] Take 1 [facility], 3-25 04-24 capsule by [facility] vitamin d2, 00:00: 04:59 [place] 1,250 mcg 00 :00 weekly for Medi al[facility] (50,000 5 doses. Branch unit) capsule ergocalcife 2022-0 3- No [id number] Take 1 [facility], 3-25 04-24 capsule by [facility] vitamin d2, 00:00: 04:59 mouth [place] 1,250 mcg 00 :00 weekly for Medi al[facility] (50,000 5 doses. Branch unit) capsule ergocalcife 3-0 3- No [id number] Take 1 [facility], 3-25 04-24 capsule by [facility] vitamin d2, 00:00: 04:59 [place] 1,250 mcg 00 :00 weekly for Medi al[facility] (50,000 5 doses. Branch unit) capsule ergocalcife 3-0 3- No [id number] Take 1 [facility], 3-25 04-24 capsule by [facility] vitamin d2, 00:00: 04:59 mouth [place] 1,250 mcg 00 :00 weekly for Medi al[facility] (50,000 5 doses. Branch unit) capsule ergocalcife 2023-0 2023- No [id number] Take 1 [facility], 3-25 04-24 capsule by [facility] vitamin d2, 00:00: 04:59 mouth [place] 1,250 mcg 00 :00 weekly for Medi al[facility] (50,000 5 doses. Branch unit) capsule ergocalcife 2023-0 2023- No [id number] Take 1 [facility], 3-25 04-24 capsule by [facility] of vitamin d2, 00:00: 04:59 [place] 1,250 mcg 00 :00 weekly for Medi al[facility] (50,000 5 doses. Branch unit) capsule ergocalcife 2023-0 2023- No [id number] Take 1 [facility], 3-25 04-24 capsule by [facility] vitamin d2, 00:00: 04:59 [place] 1,250 mcg 00 :00 weekly for Medi al[facility] (50,000 5 doses. Branch unit) capsule ergocalcife 2023-0 2023- No [id number] Take 1 [facility], 3-25 04-24 capsule by [facility] vitamin d2, 00:00: 04:59 [place] 1,250 mcg 00 :00 weekly for Medi al[facility] (50,000 5 doses. Branch unit) capsule ergocalcife 2023-0 2023- No [id number] Take 1 [facility], 3-25 04-24 capsule by [facility] vitamin d2, 00:00[place] 1[place] 00 :00 weekly for Medi alise (50,000 5 doses. Branch unit) capsule ergocalcife 2023-0 2023- No [id number] Take 1 Univers rol, 3-25 04-24 capsule by ity of vitamin d2, 00:00: 04:59 [place] 1,250 mcg 00 :00 weekly for Medi alise (50,000 5 doses. Branch unit) capsule ergocalcife 2023-0 2023- No [id number] Take 1 [facility] rol, 3-25 04-24 capsule by ity of vitamin d2, 00:00: 04:59 [place] 1,250 mcg 00 :00 weekly for Medi alise (50,000 5 doses. Branch unit) capsule ergocalcife 2023-0 2023- No [id number] Take 1 [facility] rol, 3-25 04-24 capsule by ity of vitamin d2, 00:00: 04:59 [place] 1,250 mcg 00 :00 weekly for Medi alise (50,000 5 doses. Branch unit) capsule ergocalcife 2023-0 2023- No [id number] Take 1 [facility] rol, 3-25 04-24 capsule by ity of vitamin d2, 00:00: 04:59 [place] 1,250 mcg 00 :00 weekly for Medi alise (50,000 5 doses. Branch unit) capsule ergocalcife 2023-0 2023- No [id number] Take 1 Univers rol, 3-25 04-24 capsule by ity of vitamin d2, 00:00: 04:59 [place] 1,250 mcg 00 :00 weekly for Medi alise (50,000 5 doses. Branch unit) capsule ergocalcife 3-0 2023- No [id number] Take 1 [facility] rol, 3-25 04-24 capsule by ity of vitamin d2, 00:00: 04:59 [place] 1,250 mcg 00 :00 weekly for Medi alise (50,000 5 doses. Branch unit) capsule ergocalcife 2023-0 2023- No [id number] Take 1 [facility] rol, 3-25 04-24 capsule by ity of vitamin d2, 00:00: 04:59 [place] 1,250 mcg 00 :00 weekly for Medi alise (50,000 5 doses. Branch unit) capsule ergocalcife 2023-0 2023- No [id number] Take 1 [facility] rol, 3-25 04-24 capsule by ity of vitamin d2, 00:00: 04:59 [place] 1,250 mcg 00 :00 weekly for Medi alise (50,000 5 doses. Branch unit) capsule ergocalcife 2023-0 2023- No [id number] Take 1 [facility] rol, 3-25 04-24 capsule by ity of vitamin d2, 00:00: 04:59 [place] 1,250 mcg 00 :00 weekly for Medi alise (50,000 5 doses. Branch unit) capsule ergocalcife 2023-0 2023- No [id number] Take 1 [facility] rol, 3-25 04-24 capsule by ity of vitamin d2, 00:00: 04:59 [place] 1,250 mcg 00 :00 weekly for Medi alise (50,000 5 doses. Branch unit) capsule ergocalcife 202-0 2023- No [id number] Take 1 [facility] rol, 3-25 04-24 capsule by ity of vitamin d2, 00:00: 04:59 [place] 1,250 mcg 00 :00 weekly for Medi alise (50,000 5 doses. Branch unit) capsule ergocalcife 2022-0 2023- No [id number] Take 1 [facility] rol, 3-25 04-24 capsule by ity of vitamin d2, 00:00: 04:59 [place] 1,250 mcg 00 :00 weekly for Medi alise (50,000 5 doses. Branch unit) capsule ergocalcife 2022-0 2023- No [id number] Take 1 [facility] rol, 3-25 04-24 capsule by ity of vitamin d2, 00:00: 04:59 [place] 1,250 mcg 00 :00 weekly for Medi alise (50,000 5 doses. Branch unit) capsule ergocalcife 2022-0 2023- No [id number] Take 1 [facility] rol, 3-25 04-24 capsule by ity of vitamin d2, 00:00: 04:59 [place] 1,250 mcg 00 :00 weekly for Medi alise (50,000 5 doses. Branch unit) capsule furosemide 2022-0 2023- No [id number] 40mg Take 1 [facility] 40 mg 3-22 04-22 tablet by ity of tablet 00:00: 04:59 mouth in [place] 00 :00 the Medical morning Branch for 30 days. losartan 50 3-0 2023- No [id number] 50mg Take 1 [facility] mg tablet 3-22 04-22 tablet by ity of 00:00: 04:59 mouth in [place] 00 :00 the Medical morning Branch for 30 days. furosemide 2023-0 2023- No [id number] 40mg Take 1 [facility] 40 mg 3-22 04-22 tablet by ity of tablet 00:00: 04:59 mouth in [place] 00 :00 the Medical morning Branch for 30 days. losartan 50 2022-0 3- No [id number] 50mg Take 1 [facility] mg tablet -29 09- tablet by ity of 00:00: 04:59 mouth in [place] 00 :00 the Medical morning Branch for 30 days. furosemide 2022-0 2023- No [id number] 40mg Take 1 [facility] 40 mg 3-29 09-22 tablet by ity of tablet 00:00: 04:59 mouth in [place] 00 :00 the Medical morning Branch for 30 days. losartan 50 2022-0 3- No [id number] 50mg Take 1 [facility] mg tablet -29 09- tablet by ity of 00:00: 04:59 mouth in [place] 00 :00 the Medical morning Branch for 30 days. furosemide 2022-0 3- No [id number] 40mg Take 1 [facility] 40 mg 3-29 09- tablet by ity of tablet 00:00: 04:59 mouth in [place] 00 :00 the [facility] morning [place] for 30 days. losartan 50 2022-0 3- No [id number] 50mg Take 1 Univers mg tablet -29 09- tablet by ity of 00:00: 04:59 mouth in [place] 00 :00 the [facility] morning Branch for 30 days. furosemide 2022-0 3- No [id number] 40mg Take 1 Univers 40 mg -29 09- tablet by ity of tablet 00:00: 04:59 mouth in [place] 00 :00 the [facility] morning Branch for 30 days. losartan 50 2022-0 3- No [id number] 50mg Take 1 Univers mg tablet -29 09- tablet by ity of 00:00: 04:59 mouth in [place] 00 :00 the [facility] morning Branch for 30 days. furosemide 2022-0 2023- No [id number] 40mg Take 1 Univers 40 mg 3-29 09-22 tablet by ity of tablet 00:00: 04:59 mouth in [place] 00 :00 the [facility] morning Branch for 30 days. losartan 50 2022-0 3- No [id number] 50mg Take 1 Univers mg tablet 3-29 09-22 tablet by ity of 00:00: 04:59 mouth in [place] 00 :00 the Medical morning Branch for 30 days. furosemide 2023-0 2023- No [id number] 40mg Take 1 [facility] 40 mg 3-22 -22 tablet by ity of tablet 00:00: 04:59 mouth in [place] 00 :00 the Medical morning Branch for 30 days. losartan 50 2022-0 3- No [id number] 50mg Take 1 Univers mg tablet 3-29 09-22 tablet by ity of 00:00: 04:59 mouth in [place] 00 :00 the Medical morning Branch for 30 days. furosemide 2022-0 2023- No [id number] 40mg Take 1 [facility] 40 mg 3-22 -22 tablet by ity of tablet 00:00: 04:59 mouth in [place] 00 :00 the Medical morning Branch for 30 days. losartan 50 2022-0 3- No [id number] 50mg Take 1 [facility] mg tablet 3-29 09-22 tablet by ity of 00:00: 04:59 mouth in [place] 00 :00 the Medical morning Branch for 30 days. furosemide 2022-0 3- No [id number] 40mg Take 1 [facility] 40 mg 3-29 09-22 tablet by ity of tablet 00:00: 04:59 mouth in [place] 00 :00 the Medical morning Branch for 30 days. losartan 50 2022-0 3- No [id number] 50mg Take 1 [facility] mg tablet -29 09- tablet by ity of 00:00: 04:59 mouth in [place] 00 :00 the Medical morning Branch for 30 days. furosemide 2022-0 3- No [id number] 40mg Take 1 [facility] 40 mg 3-29 09-22 tablet by ity of tablet 00:00: 04:59 mouth in [place] 00 :00 the Medical morning Branch for 30 days. losartan 50 2022-0 3- No [id number] 50mg Take 1 Univers mg tablet 3-29 09-22 tablet by ity of 00:00: 04:59 mouth in [place] 00 :00 the Medical morning Branch for 30 days. furosemide 2023-0 2023- No [id number] 40mg Take 1 [facility] 40 mg 3-22 -22 tablet by ity of tablet 00:00: 04:59 mouth in [place] 00 :00 the Medical morning Branch for 30 days. losartan 50 2022-0 2023- No [id number] 50mg Take 1 Univers mg tablet 3-29 09-22 tablet by ity of 00:00: 04:59 mouth in [place] 00 :00 the Medical morning Branch for 30 days. furosemide 2023-0 2023- No [id number] 40mg Take 1 [facility] 40 mg 08-29 tablet by ity of tablet 00:00: 04:59 mouth in [place] 00 :00 the [facility] for 30 days. losartan 50 2022-0 3- No [id number] 50mg Take 1 Univers mg tablet 08-29 tablet by ity of 00:00: 04:59 mouth in [place] 00 :00 the [facility] for 30 days. furosemide 2023-0 2023- No [id number] 40mg Take 1 Univers 40 mg 08-29 tablet by ity of tablet 00:00: 00:00 mouth in [place] 00 :00 the [facility] for 30 days. losartan 50 2022-0 2023- No [id number] 50mg Take 1 Univers mg tablet 08-29 tablet by ity of 00:00: 00:00 mouth in [place] 00 :00 the [facility] for 30 days. furosemide 2022-0 3- No [id number] 40mg Take 1 Univers 40 mg 08-29 tablet by ity of tablet 00:00: 00:00 mouth in [place] 00 :00 the [facility] for 30 days. losartan 50 2022-0 3- No [id number] 50mg Take 1 Univers mg tablet 08-29 tablet by ity of 00:00: 00:00 mouth in [place] 00 :00 the [facility] for 30 days. acetaminoph 2023-0 Yes 1300mg Take 2 [facility] [place] 650 mg 3-21 tablets by ity of CR tablet 16:53: mouth in [address] and 2 tablets at noon and 2 tablets in the evening. acetaminoph 2023-0 Yes 1300mg Take 2 [facility] 650 mg 3-21 tablets by ity of CR tablet 16:53: mouth in [address] and 2 tablets at noon and 2 tablets in the evening. acetaminoph 2023-0 Yes 1300mg Take 2 [facility] 650 mg 3-21 tablets by ity of CR tablet 16:53: mouth in [address] and 2 tablets at noon and 2 tablets in the evening. acetaminoph 2023-0 Yes 1300mg Take 2 [facility] 650 mg 3-21 tablets by ity of CR tablet 16:53: mouth in [place] [address] the Medical morning Branch and 2 tablets at noon and 2 tablets in the evening. acetaminoph 2023-0 Yes 1300mg Take 2 [facility] miracle en 650 mg 3-21 tablets by ity of CR tablet 16:53: mouth in [place] [address] the Medical morning Branch and 2 tablets at noon and 2 tablets in the evening. acetaminoph 2023-0 Yes 1300mg Take 2 [facility] en 650 mg 3-21 tablets by ity of CR tablet 16:53: mouth in [place] [address] the Medical morning Branch and 2 tablets at noon and 2 tablets in the evening. acetaminoph 2023-0 Yes 1300mg Take 2 [facility] en 650 mg 3-21 tablets by ity of CR tablet 16:53: mouth in [place] [address] the [facility] morning Branch and 2 tablets at noon and 2 tablets in the evening. acetaminoph 2023-0 Yes 1300mg Take 2 Un miracle en 650 mg 3-21 tablets by ity of CR tablet 16:53: mouth in [place] [address] the [facility] morning Branch and 2 tablets at noon and 2 tablets in the evening. acetaminoph 2023-0 Yes 1300mg Take 2 Un [facility] en 650 mg 3-21 tablets by ity of CR tablet 16:53: mouth in [place] [address] the [facility] morning Branch and 2 tablets at noon and 2 tablets in the evening. acetaminoph 2023-0 Yes 1300mg Take 2 Un miracle en 650 mg 3-21 tablets by ity of CR tablet 16:53: mouth in [place] [address] the [facility] morning Branch and 2 tablets at noon and 2 tablets in the evening. acetaminoph 2023-0 Yes 1300mg Take 2 Un miracle en 650 mg 3-21 tablets by ity of CR tablet 16:53: mouth in [place] [address] the [facility] morning Branch and 2 tablets at noon and 2 tablets in the evening. acetaminoph 2023-0 Yes 1300mg Take 2 Un miracle en 650 mg 3-21 tablets by ity of CR tablet 16:53: mouth in [place] [address] the [facility] morning Branch and 2 tablets at noon and 2 tablets in the evening. acetaminoph 2023-0 Yes 1300mg Take 2 Un miracle en 650 mg 3-21 tablets by ity of CR tablet 16:53: mouth in [address] and 2 tablets at noon and 2 tablets in the evening. acetaminoph 2023-0 Yes 1300mg Take 2 Un [facility] en 650 mg 3-21 tablets by ity of CR tablet 16:53: mouth in [address] and 2 tablets at noon and 2 tablets in the evening. acetaminoph 2023-0 Yes 1300mg Take 2 Un mriacle en 650 mg 3-21 tablets by ity of CR tablet 16:53: mouth in [address] and 2 tablets at noon and 2 tablets in the evening. acetaminoph 2023-0 Yes 1300mg Take 2 Un [facility] en 650 mg 3-21 tablets by ity of CR tablet 16:53: mouth in [address] and 2 tablets at noon and 2 tablets in the evening. acetaminoph 2023-0 Yes 1300mg Take 2 Un miracle en 650 mg 3-21 tablets by ity of CR tablet 16:53: mouth in [address] and 2 tablets at noon and 2 tablets in the evening. acetaminoph 2023-0 Yes 1300mg Take 2 Un [facility] en 650 mg 3-21 tablets by ity of CR tablet 16:53: mouth in [address] and 2 tablets at noon and 2 tablets in the evening. acetaminoph 2023-0 Yes 1300mg Take 2 [facility] en 650 mg 3-21 tablets by ity of CR tablet 16:53: mouth in [address] and 2 tablets at noon and 2 tablets in the evening. acetaminoph 2023-0 Yes 1300mg Take 2 Un miracle en 650 mg 3-21 tablets by ity of CR tablet 16:53: mouth in [address] and 2 tablets at noon and 2 tablets in the evening. losartan 2023-0 Yes 50mg 50 mg, Univers (COZAAR) 3-21 Oral, ity of tablet 50 14:00: DAILY, [place] mg 00 First dose Medical (after Branch last modificati on) on Sat08/28/22 at 0900, Until Discontinu ed, Routine levoFLOXaci 2023-0 202- No [id number] 750mg Take 1 Univers n 750 mg 08-28 tablet by ity o f tablet 00:00: 04:59 mouth [place] 00 :00 every 48 Medical ([facility]) hours for 4 days. levoFLOXaci 2022- No [id number] 750mg Take 1 Univers n 750 mg 08-28 tablet by ity o f tablet 00:00: 04:59 mouth [place] 00 :00 every 48 Medical ([facility]) hours for 4 days. levoFLOXaci 2022- No [id number] 750mg Take 1 Univers n 750 mg 08-28 tablet by ity o f tablet 00:00: 04:59 mouth [place] 00 :00 every 48 Medical ([facility]) hours for 4 days. levoFLOXaci 2022- No [id number] 750mg Take 1 Univers n 750 mg 08-28 tablet by ity o f tablet 00:00: 04:59 mouth [place] 00 :00 every 48 Medical ([facility]) hours for 4 days. levoFLOXaci 2022- No [id number] 750mg Take 1 Univers n 750 mg 08-28 tablet by ity o f tablet 00:00: 04:59 mouth [place] 00 :00 every 48 Medical ([facility]) hours for 4 days. levoFLOXaci 2022- No [id number] 750mg Take 1 Univers n 750 mg 08-28 tablet by ity o f tablet 00:00: 04:59 mouth [place] 00 :00 every 48 Medical ([facility]) hours for 4 days. levoFLOXaci 2022- No [id number] 750mg Take 1 Univers n 750 mg 08-28 tablet by ity o f tablet 00:00: 04:59 mouth [place] 00 :00 every 48 Medical ([facility]) hours for 4 days. furosemide Yes 40mg 40 mg, Unive rs (LASIX) 3-20 Oral, ity of tablet 40 23:00: DAILY, [place] mg 00 First dose Medical (after Branch last modificati on) on Sat08/27/22 at 1800, Until Discontinu ed, Routine acetaminoph 2023-0 Yes 650mg 650 mg, Un miracle en 3-20 Oral, TID, ity of (TYLENOL) 16:00: First dose [place] tablet 650 00 (after Medical mg last Branch modificati on) on [facility] 08/27/22 at 1100, Until Discontinu ed, Routine thiamine 2022-0 Yes 100mg 100 mg, Unive rs (VITAMIN 3-20 Oral, ity of B1) tablet 14:00: DAILY, [place] 100 mg 00 First dose Medical on [facility] 08/27/22 at 0900, Until Discontinu ed, Routine foLIC acid Yes 1mg 1 mg, Univer s (FOLATE) 3-20 Oral, ity of tablet 1 mg 14:00: DAILY, [place] 00 First dose Medical on [facility] 08/27/22 at 0900, Until Discontinu ed, Routine fluticasone 0 Yes 2{spray 2 [place], Univers propionate 3-20 } Nasal, ity of 50 14:00: DAILY, [place] mcg/actuati 00 First dose Me dical on nasal on [facility] spray 2 08/27/22 at [place] 0900, Until Discontinu ed, Routine apixaban 0 Yes 2.5mg 2.5 mg, Unive rs (ELIQUIS) 3-20 Oral, BID, ity of tablet 2.5 01:00: First dose [place] mg 00 on [facility] 08/26/22 at Branch 2000, Until Discontinu ed, Routine
Indicatio ns: Non-Valvul ar Atrial Fibrillati on carvediloL 0 Yes 12.5mg 12.5 mg, U nivers (COREG) 3-19 Oral, BID ity of tablet 12.5 22:00: MEALS, [place] mg 00 First dose Medical on [facility] 08/26/22 at 1700, Until Discontinu ed, Routine amLODIPine 0 Yes 10mg 10 mg, Unive rs (NORVASC) 3-19 Oral, ity of tablet 10 21:15: DAILY, [place] mg 00 First dose Medical on [facility] 08/26/22 at 1615, Until Discontinu ed, Routine losartan 2022-0 2023- No 100mg 100 mg, Univ ers (COZAAR) 3-19 03-20 Oral, ity of tablet 100 21:15: 22:37 DAILY, [place] mg 00 :00 First dose Medical on [facility] 08/26/22 at 1615, Until Discontinu ed, Routine thiamine 2022- No 100mg IV Univers (VITAMIN 08-26 Piggyback, ity of B1) 100 mg 14:00: 15:04 DAILY, 1 [place] in NaCl 00 :00 dose, Medical 0.9% (NS) First dose Bran ch piggyback (after last reorder) on [place]der[place] 08/26/22 at 0900, 50 mL traMADoL Yes 50mg 50 mg, Univers (ULTRAM) 08-26 Oral, ity of tablet 50 10:11: Q6HPRN, [place] mg 27 Starting Medical on [facility] 08/26/22 at 0511, Until Discontinu ed, Routine, Pain (scale 4-6), Pain (scale 7-10) acetaminoph 2022- No 650mg 650 mg, U nivers en 08-26 Oral, ity of (TYLENOL) 10:11: 15:50 Q4HPRN, [place] tablet 650 16 :37 Starting Medic al mg on [facility] 08/26/22 at 0511, Until 08/27/22 at 1050, Routine, Pain (scale 1-3) heparin 2022- No 5000U 5,000 Univers (porcine) 08-26 Units, ity of injection 03:00: 21:06 Subcutaneo [place] 5,000 Units 00 :03 us, Q8H, Medi alise First dose Branch on [facility] 08/25/22 at 2200, Until Discontinu ed, Routine furosemide 2022- No 20mg 20 mg, Univ ers (LASIX) 08-25 Slow IV ity of injection 22:15: 21:47 Push, [place] 20 mg 00 :00 ONCE, 1 Medical dose, On Branch [facility] 08/25/22 at 1715, Routine hydralAZINE Yes 10mg 10 mg, Univ ers (APRESOLINE 08-25 Slow IV ity o f ) injection 20:05: Push, [place] 10 mg 56 Q6HPRN, Medical Starting Branch on [facility] 08/25/22 at 1505, Until Discontinu ed, Routine, DBP=>10 0; SBP=>160, For SBP > 160 LORazepam 2022- No 1mg 1 mg, Slow U nivers (ATIVAN) 08-25 IV Push, ity of injection 1 19:45: 19:46 ONCE, 1 [place] mg 00 :00 dose, On Medical Sat Branch 08/25/22 at 1445, Routine foLIC acid 2022- No 1mg IV Univer s (FOLATE) 1 08-25 Piggyback, it y of mg in NaCl 19:00: 19:32 DAILY, [place] 0.9% (NS) 00 :52 First dose Medi alise piggyback on Sat Branch 08/25/22 at 1400, Until Discontinu ed, 50 mL thiamine 2022- No 100mg IV Univers (VITAMIN 08-25 Piggyback, ity of B1) 100 mg 19:00: 20:19 DAILY, 1 [place] in NaCl 00 :46 dose, Medical 0.9% (NS) First dose Bran ch piggyback on 08/25/22 at 1400, 50 mL lactated 2022- No 1000mL at 50 Unive rs ringers IV 08-2518 mL/hr, ity of infusion 17:30: 21:19 1,000 mL, [place] 1,000 mL 00 :56 IV Medical Infusion, Branch CONTINUOUS , Starting on 08/25/22 at 1230, Until 08/25/22 at 1619, Routine ergocalcife Yes [id number] 50,000 Un miracle rol 08-25 Units, ity of (vitamin 14:00: Oral, [place] d2) 00 QWEEKLY, Medical (CALCIFEROL First dose Br anch ) capsule on Sat 50,000 08/25/22 at Units 0900, Until Discontinu ed, Routine dexMEDEtomi 2022- No .2ug/kg 0.2-1.5 Univers dine 200 08-25 03-20 /h mcg/kg/hr ity o f mcg in 0.9 04:59: 15:50 ?65 [place] % NaCl 50 42 :37 (3.25-24.3 Medi alise mL 75 mL/hr, Branch (PRECEDEX) rounded to RTU IV 3.25-24.38 infusion mL/hr), IV Infusion, TITRATE, Sedation-R ASS score (0 to -1), Starting on Sat08/24/22 at 2359
In itiate infusion at 0.2 mcg/kg/hr and titrate by 0.1 mcg/kg/hr every 30 minutes to goal sedation score. Maximum dose = 1.5 mcg/kg/hr. If goal not maintained at maximum allowed dose, contact prescriber .
epoetin 2022- No [id number] 10,000 [facility] rs wilbur-epbx 08-25 Units, ity of (RETACRIT) 01:00: 21:19 Subcutaneo [place] injection 00 :56 , Medical 10,000 QMON/SAT/ Branch Units RI AT 2000, First dose on Sat08/24/22 at 2000, Until Discontinu ed, Routine
direct support staff member approving Restricted medication : JUJU MIRANDA G lactated 2022- No 1000mL at 100 [facility] ers ringers IV 08-24 mL/hr, ity of infusion 21:30: 17:21 1,000 mL, [place] 1,000 mL 00 :53 IV Medical Infusion, Branch CONTINUOUS , Starting on Sat08/24/22 at 1630, Until Sat08/25/22 at 1221, Routine LORazepam 2022- No .5mg 0.5 mg, [facility] ers (ATIVAN) 08-24 Slow IV ity of injection 21:00: 20:17 Push, [place] 0.5 mg 00 :00 ONCE, 1 Medical dose, On Branch Sat08/24/22 at 1600, Routine sodium 2022- No 150meq IV Univers bicarbonate 08-24 Infusion, it y of 150 mEq in 20:45: 21:29 at 80 [place] D5W 1,000 00 :00 mL/hr, 150 Medi alise mL IV mEq, Branch infusion CONTINUOUS , Starting on Sat08/24/22 at 1545, Until Sat08/24/22 at 1629, Routine haloperidol 2022- No 1mg 1 mg, Slow Univers lactate 08-24 IV Push, ity of (HALDOL) 20:10: 15:11 Q8HPRN, [place] injection 1 01 :05 Starting Medi alise mg on Sat Branch 08/24/22 at 1510, Until 08/26/22 at 1011, Routine, agitation LORazepam 2022- No .5mg 0.5 mg, Univ ers (ATIVAN) 08-24 Slow IV ity of injection 16:00: 15:11 Push, [place] 0.5 mg 00 :00 ONCE, 1 Medical dose, On Branch Sat08/24/22 at 1100, Routine magnesium 2022- No 4g 4 g, IV Univ ers sulfate in 08-24 Piggyback, it y of water 4 15:45: 17:07 at 25 [place] gram/50 mL 00 :00 mL/hr Medical (8 %) IV Administer Branc h Piggyback 4 over 120 g Minutes, ONCE, 1 dose, On Sat08/24/22 at 1045, Routine predniSONE Yes 40mg 40 mg, Unive rs (DELTASONE) 08-24 Oral, ity of tablet 40 14:00: DAILY, [place] mg 00 First dose Medical on Sat Branch 08/24/22 at 0900, Until Discontinu ed, Routine haloperidol 2022- No 2mg 2 mg, Slow Univers lactate 08-24 IV Push, ity of (HALDOL) 12:15: 12:23 ONCE, 1 [place] injection 2 00 :00 dose, On Medi alise mg Sat Branch 08/24/22 at 0715, Routine sodium 2022- No 150meq IV Univers bicarbonate 08-24 Infusion, it y of 150 mEq in 11:00: 20:30 at 80 [place] D5W 1,000 00 :28 mL/hr, 150 Medi alise mL IV mEq, Branch infusion CONTINUOUS , Starting on Sat08/24/22 at 0600, Until Sat08/24/22 at 1530, Routine heparin Yes 1500U 1,500 Univers 1,000 08-24 Units, ity of unit/mL 01:28: Slow IV [place] injection 34 Push, PRN, Medi alise 1,500 Units Starting Bran ch on [place] 08/23/22 at 2028, Until Discontinu ed, Routine, HD cath packing sodium 2022022- No 150meq IV Univers bicarbonate 08-23 Infusion, it y of 150 mEq in 22:45: 21:22 at 100 [place] D5W 1,000 00 :00 mL/hr, 150 Medi alise mL IV mEq, ONCE, Branch infusion 1 dose, On [place] 08/23/22 at 1745, Routine NORepinephr 2022- No .05ug/k 0.05-0.5 Univers ine 4 mg in 08-23 g/min mcg/kg/min ity of 0.9% NaCl 22:37: 22:36 ?63.9 kg [place] 250 mL IV 29 :29 (11.9813-1 Medi alise infusion 19.8125 Branch (CNR) mL/hr, rounded to 11.98-119. 81 mL/hr), IV Infusion, TITRATE, MAP Goal > or = 65 mmHg, Starting on [place] 08/23/22 at 1737, For 24 hours
I nitiate titration at 0.05 mcg/kg/min . &nb sp;Increas e by 0.01 mcg/kg/min every 30 seconds to 5 minutes as needed to reach and maintain goal blood pressure.& nbsp;&nbsp ;Maximum dose = 0.5 mcg/kg/min . &nb sp;If goal not maintained at maximum allowed dose, contact prescriber . &nb sp;Adminis ter only one peripheral intravenou s vasopresso r at a time.
ceFEPIme 2022- No 1000mg 1,000 mg, U nivers (MAXIPIME) 08-23 IV ity of 1,000 mg in 22:30: 22:29 [facility], [place] NaCl 0.9% 00 :00 Q24H ABX, Medic al (NS) 100 mL 7 doses, Bran ch MINI-BAG First dose on [place] 08/23/22 at 1730, Last dose on Sat08/29/22 at 1730, Administer over 30 Minutes, 100 mL
Reas on for Anti-Infec tive: Empiric Therapy for Suspected Infection< br>Empiric Therapy Site: Respirator y
Durat ion of therapy: 72 hours azithromyci 2022- No 500mg 500 mg, IV Univers n 08-23 Piggyback, ity of (ZITHROMAX) 22:30: 22:54 Q24H ABX, [place] 500 mg in 00 :00 3 doses, Medica l NaCl 0.9% First dose Bran ch (NS) 250 mL on [place] VIAL-MATE 08/23/22 at IV 1730, Last piggyback dose on 08/25/22 at 1730, Administer over 60 Minutes, 250 mL
Reas on for Anti-Infec tive: Empiric Therapy for Suspected Infection< br>Empiric Therapy Site: Respirator y
Durat ion of therapy: 72 hours atorvastati Yes 40mg 40 mg, Univ ers n (LIPITOR) 08-23 Oral, ity of tablet 40 14:00: DAILY, [place] mg 00 First dose Medical on [facility] Branch 08/23/22 at 0900, Until Discontinu ed, Routine ipratropium Yes .5mg 0.5 mg, Uni vers (ATROVENT) 08-23 Inhalation ity of 0.02 % 13:00: , QID, [place] nebulizer 00 First dose Medi alise solution on [facility] Branch 0.5 mg 08/23/22 at 0800, Until Discontinu ed, Routine fluticasone Yes 1{puff} 1 Puff, [facility] propion-anjum 08-23 Inhalation it y of meteroL 13:00: , BID, [place] (ADVAIR) 00 First dose Medic al 250-50 on [facility] Branch mcg/dose 08/23/22 at inhalation 0800, disk 1 Puff Until Discontinu ed, Routine apixaban 2022- No 1358 2.5mg 2.5 mg, [facility] ers (ELIQUIS) 08-23 Oral, BID, ity of tablet 2.5 13:00: 00:49 First dose [place] mg 00 :15 on [facility] Medical 08/23/22 at Branch 0800, Until Discontinu ed, Routine
Indicatio ns: Non-Valvul ar Atrial Fibrillati on hydrocortis 2022- No 50mg 50 mg, Uni vers one sod 08-23 Intravenou ity o f succ 11:00: 17:20 s, Q8H, [place] (CORTEF) 00 :53 First dose Medic al injection on [place] [facility] 50 mg 08/23/22 at 0600, Until Discontinu ed, 2 mL vancomycin 0 2022- No 1000mg 1,000 mg, [facility] (VANCOCIN) 08-23 IV ity of 1,000 mg in 10:30: 11:17 [facility] [place] NaCl 0.9% 00 :00 ONCE, 1 Medical (NS) 250 mL dose, On Bran ch VIAL-MATE [place] IV 08/23/22 at piggyback 0530, Administer over 60 Minutes, 250 mL
Reas on for Anti-Infec tive: Empiric Therapy for Suspected Infection< br>Empiric Therapy Site: Respirator y
Durat ion of therapy: 5 days piperacilli 2022- No 3.375g 3.375 g, Univers n-tazobacta 08-23 IV ity of m (ZOSYN) 10:15: 11:52 [place] 3.375 g in 00 :00 ONCE, 1 Medica l NaCl 0.9% dose, On Branch (NS) 100 mL [place] MINI-BAG 08/23/22 at 0515, Administer over 30 Minutes, 100 mL
Reas on for Anti-Infec tive: Empiric Therapy for Suspected Infection< br>Empiric Therapy Site: Respirator y
Durat ion of therapy: 5 days guaiFENesin Yes 400mg 400 mg, [facility] (FENESIN 08-23 Oral, ity of IR) tablet 09:56: Q4HPRN, [place] 400 mg 42 Starting Medical on [place] [facility] 08/23/22 at 0456, Until Discontinu ed, Routine, Congestion /Allergies , Cough ipratropium 0 Yes .5mg 0.5 mg, Uni vers (ATROVENT) 08-23 Inhalation ity of 0.02 % 09:30: , Q4HPRN, [place] nebulizer 50 Starting Medica l solution on [place] [facility] 0.5 mg 08/23/22 at 0430, Until Discontinu ed, Routine, Wheezing, Shortness of Breath, Bronchospa sm, Chest tightness nicotine Yes 1{patch 1 Patch, [facility] (NICODERM) 08-23 } Topical, ity o f 14 mg/24 hr 09:00: Administer [place] patch 1 00 over 24 Medical Patch Hours, Branch Q24H, First dose on Sat08/23/22 at 0400, Until Discontinu ed, Routine acetaminoph 2022- No 1000mg 1,000 mg, [facility] en ADULT 08-2316 IV ity of (OFIRMEV) 08:30: 08:17 [place]fusion, [place] injection 00 :00 at 400 Medical 1,000 mg mL/hr Branch Administer over 15 Minutes, ONCE, 1 dose, On Sat08/23/22 at 0330, Routine
Indicatio n: Non-periop erative Patient
Approved by: Per Policy (NPO Status) NaCl 0.9% 2022- No 1000mL at 100 Uni vers (NS) IV 08-23-16 mL/hr, IV ity of infusion 04:45: 21:38 Infusion, [place] as 1,000 mL 00 :05 CONTINUOUS Medic al , Starting Branch on Sat08/22/22 at 2345, Until [place] 08/23/22 at 1638, Routine DOPamine 2022- No 2.5ug/k 2.5-7.5 [facility] 800 mg/500 08-2316 g/min mcg/kg/min i ty of mL (1,600 04:39: 21:37 ?60.3 kg [place] as mcg/mL) 36 :49 (5.6531-16 Medica l infusion .9594 Branch RTU mL/hr, rounded to 5.65-16.96 mL/hr), IV Infusion, TITRATE, MAP Goal > or = 65 mmHg, Starting on Sat08/22/22 at 2339
In itiate infusion at 2.5 mcg/kg/min . &nb sp;Increas e by 2.5 mcg/kg/min every 1 minute to 5 minutes as needed to reach and maintain goal blood pressure.& nbsp;&nbsp ;Maximum dose = 7.5 mcg/kg/min . If goal not maintained at maximum allowed dose, contact prescriber . &nb sp;Adminis ter only one peripheral intravenou s vasopresso r at a time.
ondansetron No 4mg 4 mg, Slow [facility] (ZOFRAN 08-23 IV Push, ity of (PF)) 04:35: 11:27 Q6HPRN, [place] injection 4 02 :33 Starting Medi alise mg on Sat08/22/22 at 2335, Until Sat08/24/22 at 0627, Routine, Nausea and Vomiting (N/V) traZODone Yes 25mg 25 mg, Univer s (DESYREL) 08-23 Oral, ity of tablet 25 04:04: QHSPRN, [place] mg 07 Starting Medical on Sat08/22/22 at 2304, Until Discontinu ed, Routine, Insomnia albuterol Yes 1{puff} 1 Puff, [facility] (VENTOLIN) 08-23 Inhalation ity of inhaler 1 04:01: , Q4HPRN, [place] Puff 15 Starting Medical on Sat08/22/22 at 2301, Until Discontinu ed, Wheezing, Shortness of Breath, Bronchospa sm, Chest tightness acetaminoph 2022- No 1000mg 1,000 mg, [facility] en 08-23 Oral, ity of (TYLENOL) 00:30: 00:47 ONCE, 1 [place] tablet 00 :00 dose, On Medical 1,000 mg Sat08/22/22 at 1930, [place] NaCl 0.9% 2022- No 500mL at 999 Univ ers (NS) bolus 08-22 mL/hr, 500 it y of infusion 23:00: 23:22 mL, IV [place] 500 mL 00 :00 Infusion, Medical ONCE, 1 Branch dose, On Sat08/22/22 at 1800, [place] cefTRIAXone No 1000mg 1,000 mg, [facility] (ROCEPHIN) 08-22 IV ity of 1,000 mg in 22:00: 22:12 Piggyback, [place] NaCl 0.9% 00 :00 ONCE, 1 Medical (NS) 100 mL dose, On Bran ch MINI-BAG Sat08/22/22 at 1700, Administer over 30 Minutes, 100 mL
Reas on for Anti-Infec tive: Documented Infection< br>Documen beatriz Infection Site: Urine<br&g t;Duration of Therapy: Other (see Comments) NaCl 0.9% 2022- No 1000mL at 999 Uni vers (NS) bolus 08-22-15 mL/hr, ity of infusion 21:30: 22:12 1,000 mL, [place] 1,000 mL 00 :00 IV Medical Infusion, Branch ONCE, 1 dose, On Sat08/22/22 at 1630, [place] gabapentin 2022- Yes [id number] 100mg Take 1 [facility] (NEURONTIN) 08-2208 capsule by it y of 100 mg 00:00: mouth in [place] capsule 00 the Medical morning Branch and 1 capsule at noon and 1 capsule in the evening. gabapentin 2022- No [id number] 100mg Take 1 [facility] (NEURONTIN) 08-22 9108 capsule by i ty of 100 mg 00:00: 00:00 mouth in [place] capsule 00 :00 the Medical morning Branch and 1 capsule at noon and 1 capsule in the evening. traMADoL 50 2022-0 2022- No 4647 50mg Take 1 Uni vers mg tablet 08-20 tablet by ity of 00:00: 04:59 mouth [place] 00 :00 every 6 Medical (six) Branch hours as needed (pain) for up to 7 days. Indication s: acute pain traMADoL 50 2022-0 2022- No 4647 50mg Take 1 Uni vers mg tablet 08-20 tablet by ity of 00:00: 04:59 mouth [place] 00 :00 every 6 Medical (six) Branch hours as needed (pain) for up to 7 days. Indication s: acute pain traMADoL 50 2022-0 2022- No 4647 50mg Take 1 Uni vers mg tablet 08-20 tablet by ity of 00:00: 00:00 mouth [place] 00 :00 every 6 Medical (six) Branch hours as needed (pain) for up to 7 days. Indication s: acute pain HYDROcodone 2022-0 2022- No 4647 1{tbl} Take 1 U nivers -acetaminop 08-15 tablet by it y of hen (NORCO) 00:00: 00:00 mouth [place] 5-325 mg 00 :00 every 6 Medical tablet (six) Branch hours as needed (pain) for up to 7 days. Indication s: acute pain HYDROcodone 2022-2022- No 4647 1{tbl} Take 1 U nivers -acetaminop 3-08 03-16 tablet by it y of hen ([employer]) 00:00: 04:59 mouth [place] 5-325 mg 00 :00 every 6 Medical tablet (six) Branch hours as needed (pain) for up to 7 days. Indication s: acute pain HYDROcodone 2022-2022- No 4647 1{tbl} Take 1 U nivers -acetaminop 3-08 03-16 tablet by it y of hen ([employer]) 00:00: 04:59 mouth [place] 5-325 mg 00 :00 every 6 Medical tablet (six) Branch hours as needed (pain) for up to 7 days. Indication s: acute pain HYDROcodone 2022-2022- No 4647 1{tbl} Take 1 U nivers -acetaminop 3-08 03-16 tablet by it y of hen ([employer]) 00:00: 04:59 mouth [place] 5-325 mg 00 :00 every 6 Medical tablet (six) Branch hours as needed (pain) for up to 7 days. Indication s: acute pain HYDROcodone 2022-2022- No 4647 1{tbl} Take 1 U nivers -acetaminop 3-08 03-16 tablet by it y of hen ([employer]) 00:00: 04:59 mouth [place] 5-325 mg 00 :00 every 6 Medical tablet (six) Branch hours as needed (pain) for up to 7 days. Indication s: acute pain triamcinolo 2022-2022- No 20mg 20 mg, Uni vers ne 08-02 Intramuscu ity of acetonide 01:00: 00:34 lar, ONCE, [place] (KENALOG) 00 :00 1 dose, On Medi alise injection Wed Branch 20 mg 08/01/22 at 1900, [place] ketorolac 2022- No 15mg 15 mg, Unive rs (TORADOL) 08-02 Slow IV ity of injection 01:00: 00:32 Push, ONCE [place] 15 mg 00 :00 NOW, 1 Medical dose, On Branch 08/01/22 at 1900, [place] lidocaine 2022-0 2022- No 10mL 10 mL, Unive rs 1% 08-02 Infiltrati ity of (XYLOCAINE) 00:45: 00:43 on, ONCE, [place] 10 mg/mL (1 00 :00 1 dose, On Me dical %) Wed Branch injection 08/01/22 at 10 mL 1845, [place] albuterol 2022-0 2022- No 2.5mg 2.5 mg, Uni vers (PROVENTIL) 08-02 Inhalation i ty of 2.5 mg /3 00:15: 00:16 , ONCE, 1 [place] mL (0.083 00 :00 dose, On Medica l %) [facility] Branch nebulizer 08/01/22 at solution 1815, STAT 2.5 mg magnesium 2022- No 2g 2 g, IV Univ ers sulfate in 08-01 Piggyback, it y of water 2 23:45: 00:41 Administer [place] gram/50 mL 00 :00 over 60 Medica l (4 %) Minutes, Branch infusion 2 ONCE, 1 g dose, On 08/01/22 at 1745, [place] ipratropium 2022-2022- No .5mg 0.5 mg, Un [facility] (ATROVENT) 08-01 Inhalation it y of 0.02 % 23:00: 23:35 , ONCE, 1 [place] nebulizer 00 :00 dose, On Medica l solution Wed Branch 0.5 mg 08/01/22 at 1700, [place] albuterol 2022-0 2022- No 2.5mg 2.5 mg, Uni vers (PROVENTIL) 08-01 Inhalation i ty of 2.5 mg /3 23:00: 23:35 , ONCE, 1 [place] mL (0.083 00 :00 dose, On Medica l %) [facility] Branch nebulizer 08/01/22 at solution 1700, STAT 2.5 mg dexamethaso 2022-0 2022- No 10mg 10 mg, Uni vers ne sod phos 08-01 Slow IV ity of PF 23:00: 23:42 Push, [place] injection 00 :00 ONCE, 1 Medical 10 mg dose, On Branch 08/01/22 at 1700, 1 mL fluticasone 2022-0 Yes 1{puff} Inhale 1 Univers propion-anjum 2-22 Puff in ity o f meteroL 00:00: the [place] (ADVAIR 00 morning Medical DISKUS) and 1 Puff Branch 250-50 in the mcg/dose evening. inhalation disk tiotropium 0 Yes 1{puff} Inhale 1 [facility] bromide 2-22 Puff ity of (SPIRIVA 00:00: daily. [place] RESPIMAT) 00 Medical 2.5 Branch mcg/actuati on Mist fluticasone 2022-0 Yes 1{puff} Inhale 1 [facility] propion-anjum 2-22 Puff in ity o f meteroL 00:00: the [place] (ADVAIR 00 morning Medical DISKUS) and 1 Puff Branch 250-50 in the mcg/dose evening. inhalation disk tiotropium 2022-0 Yes 1{puff} Inhale 1 [facility] bromide 2-22 Puff ity of (SPIRIVA 00:00: daily. [place] RESPIMAT) 00 Medical 2.5 Branch mcg/actuati on Mist fluticasone 2022-0 Yes 1{puff} Inhale 1 [facility] propion-anjum 2-22 Puff in ity o f meteroL 00:00: the [place] (ADVAIR 00 morning Medical DISKUS) and 1 Puff Branch 250-50 in the mcg/dose evening. inhalation disk tiotropium 0 Yes 1{puff} Inhale 1 [facility] bromide 2-22 Puff ity of (SPIRIVA 00:00: daily. [place] RESPIMAT) 00 Medical 2.5 Branch mcg/actuati on Mist tiotropium 2022-0 Yes 1{puff} Inhale 1 [facility] bromide 2-22 Puff ity of (SPIRIVA 00:00: daily. [place] RESPIMAT) 00 Medical 2.5 Branch mcg/actuati on Mist tiotropium 2022-0 Yes 1{puff} Inhale 1 [facility] bromide 2-22 Puff ity of (SPIRIVA 00:00: daily. [place] RESPIMAT) 00 Medical 2.5 Branch mcg/actuati on Mist tiotropium 3-0 Yes [id number] 1{puff} Inhale 1 [facility] bromide 2-22 Puff ity of (SPIRIVA 00:00: daily. [place] RESPIMAT) 00 Medical 2.5 Branch mcg/actuati on Mist tiotropium 3-0 Yes [id number] 1{puff} Inhale 1 [facility] bromide 2-22 Puff ity of (SPIRIVA 00:00: daily. [place] RESPIMAT) 00 Medical 2.5 Branch mcg/actuati on Mist tiotropium 3-0 Yes [id number] 1{puff} Inhale 1 [facility] bromide 2-22 Puff ity of (SPIRIVA 00:00: daily. [place] RESPIMAT) 00 Medical 2.5 Branch mcg/actuati on Mist tiotropium 2022-0 Yes [id number] 1{puff} Inhale 1 [facility] bromide 2-22 Puff ity of (SPIRIVA 00:00: daily. [place] RESPIMAT) 00 Medical 2.5 Branch mcg/actuati on Mist tiotropium 2022-0 Yes [id number] 1{puff} Inhale 1 [facility] bromide 2-22 Puff ity of (SPIRIVA 00:00: daily. [place] RESPIMAT) 00 Medical 2.5 Branch mcg/actuati on Mist tiotropium 3-0 Yes [id number] 1{puff} Inhale 1 [facility] bromide 2-22 Puff ity of (SPIRIVA 00:00: daily. [place] RESPIMAT) 00 Medical 2.5 Branch mcg/actuati on Mist tiotropium 3-0 Yes [id number] 1{puff} Inhale 1 [facility] bromide 2-22 Puff ity of (SPIRIVA 00:00: daily. [place] RESPIMAT) 00 Medical 2.5 Branch mcg/actuati on Mist tiotropium 3-0 Yes [id number] 1{puff} Inhale 1 [facility] bromide 2-22 Puff ity of (SPIRIVA 00:00: daily. [place] RESPIMAT) 00 Medical 2.5 Branch mcg/actuati on Mist tiotropium 3-0 Yes [id number] 1{puff} Inhale 1 [facility] bromide 2-22 Puff ity of (SPIRIVA 00:00: daily. [place] RESPIMAT) 00 Medical 2.5 Branch mcg/actuati on Mist tiotropium 2022-0 Yes [id number] 1{puff} Inhale 1 [facility] bromide 2-22 Puff ity of (SPIRIVA 00:00: daily. [place] RESPIMAT) 00 Medical 2.5 Branch mcg/actuati on Mist tiotropium 2022-0 Yes [id number] 1{puff} Inhale 1 [facility] bromide 2-22 Puff ity of (SPIRIVA 00:00: daily. [place] RESPIMAT) 00 Medical 2.5 Branch mcg/actuati on Mist tiotropium 2022-0 Yes [id number] 1{puff} Inhale 1 [facility] bromide 2-22 Puff ity of (SPIRIVA 00:00: daily. [place] RESPIMAT) 00 Medical 2.5 Branch mcg/actuati on Mist tiotropium 2022-0 Yes [id number] 1{puff} Inhale 1 [facility] bromide 2-22 Puff ity of (SPIRIVA 00:00: daily. [place] RESPIMAT) 00 Medical 2.5 Branch mcg/actuati on Mist tiotropium 2022-0 Yes [id number] 1{puff} Inhale 1 [facility] bromide 2-22 Puff ity of (SPIRIVA 00:00: daily. [place] RESPIMAT) 00 Medical 2.5 Branch mcg/actuati on Mist tiotropium 2022-0 Yes [id number] 1{puff} Inhale 1 [facility] bromide 2-22 Puff ity of (SPIRIVA 00:00: daily. [place] RESPIMAT) 00 Medical 2.5 Branch mcg/actuati on Mist tiotropium 2022-0 Yes [id number] 1{puff} Inhale 1 [facility] bromide 2-22 Puff ity of (SPIRIVA 00:00: daily. [place] RESPIMAT) 00 Medical 2.5 Branch mcg/actuati on Mist tiotropium 2022-0 Yes [id number] 1{puff} Inhale 1 [facility] bromide 2-22 Puff ity of (SPIRIVA 00:00: daily. [place] RESPIMAT) 00 Medical 2.5 Branch mcg/actuati on Mist tiotropium 2022-0 Yes [id number] 1{puff} Inhale 1 [facility] bromide 2-22 Puff ity of (SPIRIVA 00:00: daily. [place] RESPIMAT) 00 Medical 2.5 Branch mcg/actuati on Mist tiotropium 3-0 Yes [id number] 1{puff} Inhale 1 [facility] bromide 2-22 Puff ity of (SPIRIVA 00:00: daily. [place] RESPIMAT) 00 Medical 2.5 Branch mcg/actuati on Mist tiotropium 2022-0 Yes [id number] 1{puff} Inhale 1 [facility] bromide 2-22 Puff ity of (SPIRIVA 00:00: daily. [place] RESPIMAT) 00 Medical 2.5 Branch mcg/actuati on Mist tiotropium 2022-0 Yes [id number] 1{puff} Inhale 1 [facility] bromide 2-22 Puff ity of (SPIRIVA 00:00: daily. [place] RESPIMAT) 00 Medical 2.5 Branch mcg/actuati on Mist tiotropium 2022-0 Yes [id number] 1{puff} Inhale 1 [facility] bromide 2-22 Puff ity of (SPIRIVA 00:00: daily. [place] RESPIMAT) 00 Medical 2.5 Branch mcg/actuati on Mist tiotropium 2022-0 Yes [id number] 1{puff} Inhale 1 [facility] bromide 2-22 Puff ity of (SPIRIVA 00:00: daily. [place] RESPIMAT) 00 Medical 2.5 Branch mcg/actuati on Mist tiotropium 2022-0 Yes [id number] 1{puff} Inhale 1 Univers bromide 2-22 Puff ity of (SPIRIVA 00:00: daily. [place] RESPIMAT) 00 Medical 2.5 Branch mcg/actuati on Mist tiotropium 3-0 Yes [id number] 1{puff} Inhale 1 Univers bromide 2-22 Puff ity of (SPIRIVA 00:00: daily. [place] RESPIMAT) 00 Medical 2.5 Branch mcg/actuati on Mist tiotropium 3-0 Yes [id number] 1{puff} Inhale 1 [facility] bromide 2-22 Puff ity of (SPIRIVA 00:00: daily. [place] RESPIMAT) 00 Medical 2.5 Branch mcg/actuati on Mist tiotropium 3-0 Yes [id number] 1{puff} Inhale 1 [facility] bromide 2-22 Puff ity of (SPIRIVA 00:00: daily. [place] RESPIMAT) 00 Medical 2.5 Branch mcg/actuati on Mist tiotropium 2022-0 Yes [id number] 1{puff} Inhale 1 [facility] bromide 2-22 Puff ity of (SPIRIVA 00:00: daily. [place] RESPIMAT) 00 Medical 2.5 Branch mcg/actuati on Mist tiotropium 2022-0 Yes [id number] 1{puff} Inhale 1 [facility] bromide 2-22 Puff ity of (SPIRIVA 00:00: daily. [place] RESPIMAT) 00 Medical 2.5 Branch mcg/actuati on Mist tiotropium 2022-0 Yes [id number] 1{puff} Inhale 1 [facility] bromide 2-22 Puff ity of (SPIRIVA 00:00: daily. [place] RESPIMAT) 00 Medical 2.5 Branch mcg/actuati on Mist tiotropium 2022-0 Yes [id number] 1{puff} Inhale 1 [facility] bromide 2-22 Puff ity of (SPIRIVA 00:00: daily. [place] RESPIMAT) 00 Medical 2.5 Branch mcg/actuati on Mist tiotropium 2022-0 Yes [id number] 1{puff} Inhale 1 [facility] bromide 2-22 Puff ity of (SPIRIVA 00:00: daily. [place] RESPIMAT) 00 Medical 2.5 Branch mcg/actuati on Mist tiotropium 2022-0 Yes [id number] 1{puff} Inhale 1 [facility] bromide 2-22 Puff ity of (SPIRIVA 00:00: daily. [place] RESPIMAT) 00 Medical 2.5 Branch mcg/actuati on Mist tiotropium 2022-0 Yes [id number] 1{puff} Inhale 1 [facility] bromide 2-22 Puff ity of (SPIRIVA 00:00: daily. [place] RESPIMAT) 00 Medical 2.5 Branch mcg/actuati on Mist tiotropium 3-0 Yes [id number] 1{puff} Inhale 1 [facility] bromide 2-22 Puff ity of (SPIRIVA 00:00: daily. [place] RESPIMAT) 00 Medical 2.5 Branch mcg/actuati on Mist tiotropium 2022-0 Yes [id number] 1{puff} Inhale 1 [facility] bromide 2-22 Puff ity of (SPIRIVA 00:00: daily. [place] RESPIMAT) 00 Medical 2.5 Branch mcg/actuati on Mist tiotropium Yes [id number] 1{puff} Inhale 1 [facility] bromide 2-22 Puff ity of (SPIRIVA 00:00: daily. [place] RESPIMAT) 00 Medical 2.5 Branch mcg/actuati on Mist tiotropium 0 Yes [id number] 1{puff} Inhale 1 [facility] bromide 2-22 Puff ity of (SPIRIVA 00:00: daily. [place] RESPIMAT) 00 Medical 2.5 Branch mcg/actuati on Mist tiotropium 0 Yes [id number] 1{puff} Inhale 1 [facility] bromide 2-22 Puff ity of (SPIRIVA 00:00: daily. [place] RESPIMAT) 00 Medical 2.5 Branch mcg/actuati on Mist tiotropium 0 Yes [id number] 1{puff} Inhale 1 [facility] bromide 2-22 Puff ity of (SPIRIVA 00:00: daily. [place] RESPIMAT) 00 Medical 2.5 Branch mcg/actuati on Mist tiotropium 0 Yes [id number] 1{puff} Inhale 1 [facility] bromide 2-22 Puff ity of (SPIRIVA 00:00: daily. [place] RESPIMAT) 00 Medical 2.5 Branch mcg/actuati on Mist tiotropium 0 Yes [id number] 1{puff} Inhale 1 [facility] bromide 2-22 Puff ity of (SPIRIVA 00:00: daily. [place] RESPIMAT) 00 Medical 2.5 Branch mcg/actuati on Mist tiotropium 0 Yes [id number] 1{puff} Inhale 1 [facility] bromide 2-22 Puff ity of (SPIRIVA 00:00: daily. [place] RESPIMAT) 00 Medical 2.5 Branch mcg/actuati on Mist fluticasone 0 Yes [id number] 1{puff} Inhale 1 Univers propion-anjum 2-22 Puff in ity o f meteroL 00:00: the [place] (ADVAIR 00 morning Medical DISKUS) and 1 Puff Branch 250-50 in the mcg/dose evening. inhalation disk albuterol Yes [id number] 2{puff} Inhale 2 Univers 90 2-22 Puffs ity of mcg/actuati 00:00: every 4 [place] as on inhaler 00 (four) Medical hours as Branch needed for Wheezing, Shortness of Breath or Bronchospa sm. tiotropium Yes [id number] 1{puff} Inhale 1 Univers bromide 2-22 Puff ity of (SPIRIVA 00:00: daily. [place] RESPIMAT) 00 Medical 2.5 Branch mcg/actuati on Mist gabapentin Yes [id number] 100mg Take 1 Univers (NEURONTIN) 2-22 9108 capsule by it y of 100 mg 00:00: mouth in [place] capsule 00 the Medical morning Branch and 1 capsule at noon and 1 capsule in the evening. cholecalcif Yes [id number] 1{capsu Take 1 Univers raj, 2-22 9108 le} capsule by ity of vitamin D3, 00:00: mouth [place] (VITAMIN 00 daily. Medical D3) 100 mcg Branch (4,000 unit) Cap fluticasone Yes [id number] 1{puff} Inhale 1 Univers propion-anjum 2-22 Puff in ity o f meteroL 00:00: the [place] (ADVAIR 00 morning Medical DISKUS) and 1 Puff Branch 250-50 in the mcg/dose evening. inhalation disk tiotropium Yes [id number] 1{puff} Inhale 1 [facility] bromide 2-22 Puff ity of (SPIRIVA 00:00: daily. [place] RESPIMAT) 00 Medical 2.5 Branch mcg/actuati on Mist gabapentin Yes [id number] 100mg Take 1 Univers (NEURONTIN) 2-22 9108 capsule by it y of 100 mg 00:00: mouth in [place] capsule 00 the Medical morning Branch and 1 capsule at noon and 1 capsule in the evening. cholecalcif Yes [id number] 1{capsu Take 1 Univers raj, 2-22 9108 le} capsule by ity of vitamin D3, 00:00: mouth [place] (VITAMIN 00 daily. Medical D3) 100 mcg Branch (4,000 unit) Cap fluticasone Yes [id number] 1{puff} Inhale 1 Univers propion-anjum 2-22 Puff in ity o f meteroL 00:00: the [place] (ADVAIR 00 morning Medical DISKUS) and 1 Puff Branch 250-50 in the mcg/dose evening. inhalation disk tiotropium Yes [id number] 1{puff} Inhale 1 [facility] bromide 2-22 Puff ity of (SPIRIVA 00:00: daily. [place] RESPIMAT) 00 Medical 2.5 Branch mcg/actuati on Mist gabapentin Yes [id number] 100mg Take 1 Univers (NEURONTIN) 2-22 9108 capsule by it y of 100 mg 00:00: mouth in [place] capsule 00 the Medical morning Branch and 1 capsule at noon and 1 capsule in the evening. cholecalcif Yes [id number] 1{capsu Take 1 Univers raj, 2-22 9108 le} capsule by ity of vitamin D3, 00:00: mouth [place] (VITAMIN 00 daily. Medical D3) 100 mcg Branch (4,000 unit) Cap fluticasone Yes [id number] 1{puff} Inhale 1 Univers propion-anjum 2-22 Puff in ity o f meteroL 00:00: the [place] (ADVAIR 00 morning Medical DISKUS) and 1 Puff Branch 250-50 in the mcg/dose evening. inhalation disk tiotropium Yes [id number] 1{puff} Inhale 1 [facility] bromide 2-22 Puff ity of (SPIRIVA 00:00: daily. [place] RESPIMAT) 00 Medical 2.5 Branch mcg/actuati on Mist gabapentin Yes [id number] 100mg Take 1 Univers (NEURONTIN) 2-22 9108 capsule by it y of 100 mg 00:00: mouth in [place] capsule 00 the Medical morning Branch and 1 capsule at noon and 1 capsule in the evening. cholecalcif Yes [id number] 1{capsu Take 1 Univers raj, 2-22 9108 le} capsule by ity of vitamin D3, 00:00: mouth [place] (VITAMIN 00 daily. Medical D3) 100 mcg Branch (4,000 unit) Cap fluticasone Yes [id number] 1{puff} Inhale 1 Univers propion-anjum 2-22 Puff in ity o f meteroL 00:00: the [place] (ADVAIR 00 morning Medical DISKUS) and 1 Puff Branch 250-50 in the mcg/dose evening. inhalation disk tiotropium Yes [id number] 1{puff} Inhale 1 [facility] bromide 2-22 Puff ity of (SPIRIVA 00:00: daily. [place] RESPIMAT) 00 Medical 2.5 Branch mcg/actuati on Mist cholecalcif Yes [id number] 1{capsu Take 1 Univers raj, 2-22 9108 le} capsule by ity of vitamin D3, 00:00: mouth [place] (VITAMIN 00 daily. Medical D3) 100 mcg Branch (4,000 unit) Cap fluticasone Yes [id number] 1{puff} Inhale 1 Univers propion-anjum 2-22 Puff in ity o f meteroL 00:00: the [place] (ADVAIR 00 morning Medical DISKUS) and 1 Puff Branch 250-50 in the mcg/dose evening. inhalation disk tiotropium Yes [id number] 1{puff} Inhale 1 [facility] bromide 2-22 Puff ity of (SPIRIVA 00:00: daily. [place] RESPIMAT) 00 Medical 2.5 Branch mcg/actuati on Mist fluticasone Yes [id number] 1{puff} Inhale 1 Univers propion-anjum 2-22 Puff in ity o f meteroL 00:00: the [place] (ADVAIR 00 morning Medical DISKUS) and 1 Puff Branch 250-50 in the mcg/dose evening. inhalation disk tiotropium Yes [id number] 1{puff} Inhale 1 [facility] bromide 2-22 Puff ity of (SPIRIVA 00:00: daily. [place] RESPIMAT) 00 Medical 2.5 Branch mcg/actuati on Mist fluticasone Yes [id number] 1{puff} Inhale 1 Univers propion-anjum 2-22 Puff in ity o f meteroL 00:00: the [place] (ADVAIR 00 morning Medical DISKUS) and 1 Puff Branch 250-50 in the mcg/dose evening. inhalation disk tiotropium Yes [id number] 1{puff} Inhale 1 [facility] bromide 2-22 Puff ity of (SPIRIVA 00:00: daily. [place] RESPIMAT) 00 Medical 2.5 Branch mcg/actuati on Mist fluticasone Yes 1{puff} Inhale 1 [facility] propion-anjum 2-22 Puff in ity o f meteroL 00:00: the [place] (ADVAIR 00 morning Medical DISKUS) and 1 Puff Branch 250-50 in the mcg/dose evening. inhalation disk tiotropium Yes 1{puff} Inhale 1 [facility] bromide 2-22 Puff ity of (SPIRIVA 00:00: daily. [place] RESPIMAT) 00 Medical 2.5 Branch mcg/actuati on Mist fluticasone Yes 1{puff} Inhale 1 [facility] propion-anjum 2-22 Puff in ity o f meteroL 00:00: the [place] (ADVAIR 00 morning Medical DISKUS) and 1 Puff Branch 250-50 in the mcg/dose evening. inhalation disk tiotropium Yes [id number] 1{puff} Inhale 1 [facility] bromide 2-22 Puff ity of (SPIRIVA 00:00: daily. [place] RESPIMAT) 00 Medical 2.5 Branch mcg/actuati on Mist fluticasone Yes [id number] 1{puff} Inhale 1 [facility] propion-anjum 2-22 Puff in ity o f meteroL 00:00: the [place] (ADVAIR 00 morning Medical DISKUS) and 1 Puff Branch 250-50 in the mcg/dose evening. inhalation disk tiotropium Yes [id number] 1{puff} Inhale 1 [facility] bromide 2-22 Puff ity of (SPIRIVA 00:00: daily. [place] RESPIMAT) 00 Medical 2.5 Branch mcg/actuati on Mist fluticasone Yes 1{puff} Inhale 1 [facility] propion-anjum 2-22 Puff in ity o f meteroL 00:00: the [place] (ADVAIR 00 morning Medical DISKUS) and 1 Puff Branch 250-50 in the mcg/dose evening. inhalation disk tiotropium Yes 1{puff} Inhale 1 [facility] bromide 2-22 Puff ity of (SPIRIVA 00:00: daily. [place] RESPIMAT) 00 Medical 2.5 Branch mcg/actuati on Mist fluticasone Yes [id number] 1{puff} Inhale 1 [facility] propion-anjum 2-22 Puff in ity o f meteroL 00:00: the [place] (ADVAIR 00 morning Medical DISKUS) and 1 Puff Branch 250-50 in the mcg/dose evening. inhalation disk tiotropium Yes [id number] 1{puff} Inhale 1 [facility] bromide 2-22 Puff ity of (SPIRIVA 00:00: daily. [place] RESPIMAT) 00 Medical 2.5 Branch mcg/actuati on Mist fluticasone Yes [id number] 1{puff} Inhale 1 [facility] propion-anjum 2-22 Puff in ity o f meteroL 00:00: the [place] (ADVAIR 00 morning Medical DISKUS) and 1 Puff Branch 250-50 in the mcg/dose evening. inhalation disk tiotropium Yes [id number] 1{puff} Inhale 1 [facility] bromide 2-22 Puff ity of (SPIRIVA 00:00: daily. [place] RESPIMAT) 00 Medical 2.5 Branch mcg/actuati on Mist fluticasone Yes [id number] 1{puff} Inhale 1 [facility] propion-anjum 2-22 Puff in ity o f meteroL 00:00: the [place] (ADVAIR 00 morning Medical DISKUS) and 1 Puff Branch 250-50 in the mcg/dose evening. inhalation disk tiotropium Yes [id number] 1{puff} Inhale 1 [facility] bromide 2-22 Puff ity of (SPIRIVA 00:00: daily. [place] RESPIMAT) 00 Medical 2.5 Branch mcg/actuati on Mist fluticasone Yes 1{puff} Inhale 1 [facility] propion-anjum 2-22 Puff in ity o f meteroL 00:00: the [place] (ADVAIR 00 morning Medical DISKUS) and 1 Puff Branch 250-50 in the mcg/dose evening. inhalation disk tiotropium Yes 1{puff} Inhale 1 [facility] bromide 2-22 Puff ity of (SPIRIVA 00:00: daily. [place] RESPIMAT) 00 Medical 2.5 Branch mcg/actuati on [place] fluticasone Yes [id number] 1{puff} Inhale 1 [facility] propion-anjum 2-22 Puff in ity o f meteroL 00:00: the [place] (ADVAIR 00 morning Medical DISKUS) and 1 Puff Branch 250-50 in the mcg/dose evening. inhalation disk tiotropium Yes [id number] 1{puff} Inhale 1 [facility] bromide 2-22 Puff ity of (SPIRIVA 00:00: daily. [place] RESPIMAT) 00 Medical 2.5 Branch mcg/actuati on Mist fluticasone Yes [id number] 1{puff} Inhale 1 [facility] propion-anjum 2-22 Puff in ity o f meteroL 00:00: the [place] (ADVAIR 00 morning Medical DISKUS) and 1 Puff Branch 250-50 in the mcg/dose evening. inhalation disk tiotropium Yes [id number] 1{puff} Inhale 1 [facility] bromide 2-22 Puff ity of (SPIRIVA 00:00: daily. [place] RESPIMAT) Medical 2.5 Branch mcg/actuati on Mist fluticasone Yes [id number] 1{puff} Inhale 1 [facility] propion-anjum 2-22 Puff in ity o f meteroL 00:00: the [place] (ADVAIR 00 morning Medical DISKUS) and 1 Puff Branch 250-50 in the mcg/dose evening. inhalation disk tiotropium Yes [id number] 1{puff} Inhale 1 [facility] bromide 2-22 Puff ity of (SPIRIVA 00:00: daily. [place] RESPIMAT) 00 Medical 2.5 Branch mcg/actuati on Mist fluticasone Yes [id number] 1{puff} Inhale 1 [facility] propion-anjum 2-22 Puff in ity o f meteroL 00:00: the [place] (ADVAIR 00 morning Medical DISKUS) and 1 Puff Branch 250-50 in the mcg/dose evening. inhalation disk tiotropium Yes 1{puff} Inhale 1 [facility] bromide 2-22 Puff ity of (SPIRIVA 00:00: daily. [place] RESPIMAT) Medical 2.5 Branch mcg/actuati on Mist fluticasone Yes [id number] 1{puff} Inhale 1 [facility] propion-anjum 2-22 Puff in ity o f meteroL 00:00: the [place] (ADVAIR 00 morning Medical DISKUS) and 1 Puff Branch 250-50 in the mcg/dose evening. inhalation disk tiotropium Yes [id number] 1{puff} Inhale 1 [facility] bromide 2-22 Puff ity of (SPIRIVA 00:00: daily. [place] RESPIMAT) 00 Medical 2.5 Branch mcg/actuati on Mist fluticasone Yes [id number] 1{puff} Inhale 1 [facility] propion-anjum 2-22 Puff in ity o f meteroL 00:00: the [place] (ADVAIR 00 morning Medical DISKUS) and 1 Puff Branch 250-50 in the mcg/dose evening. inhalation disk tiotropium Yes [id number] 1{puff} Inhale 1 [facility] bromide 2-22 Puff ity of (SPIRIVA 00:00: daily. [place] RESPIMAT) Medical 2.5 Branch mcg/actuati on Mist fluticasone Yes [id number] 1{puff} Inhale 1 [facility] propion-anjum 2-22 Puff in ity o f meteroL 00:00: the [place] (ADVAIR 00 morning Medical DISKUS) and 1 Puff Branch 250-50 in the mcg/dose evening. inhalation disk tiotropium Yes [id number] 1{puff} Inhale 1 [facility] bromide 2-22 Puff ity of (SPIRIVA 00:00: daily. [place] RESPIMAT) 00 Medical 2.5 Branch mcg/actuati on Mist fluticasone Yes [id number] 1{puff} Inhale 1 [facility] propion-anjum 2-22 Puff in ity o f meteroL 00:00: the [place] (ADVAIR 00 morning Medical DISKUS) and 1 Puff Branch 250-50 in the mcg/dose evening. inhalation disk tiotropium Yes [id number] 1{puff} Inhale 1 [facility] bromide 2-22 Puff ity of (SPIRIVA 00:00: daily. [place] RESPIMAT) 00 Medical 2.5 Branch mcg/actuati on Mist fluticasone Yes [id number] 1{puff} Inhale 1 [facility] propion-anjum 2-22 Puff in ity o f meteroL 00:00: the [place] (ADVAIR 00 morning Medical DISKUS) and 1 Puff Branch 250-50 in the mcg/dose evening. inhalation disk tiotropium Yes [id number] 1{puff} Inhale 1 [facility] bromide 2-22 Puff ity of (SPIRIVA 00:00: daily. [place] RESPIMAT) 00 Medical 2.5 Branch mcg/actuati on [place] fluticasone Yes [id number] 1{puff} Inhale 1 [facility] propion-anjum 2-22 Puff in ity o f meteroL 00:00: the [place] (ADVAIR 00 morning Medical DISKUS) and 1 Puff Branch 250-50 in the mcg/dose evening. inhalation disk tiotropium Yes [id number] 1{puff} Inhale 1 [facility] bromide 2-22 Puff ity of (SPIRIVA 00:00: daily. [place] RESPIMAT) 00 Medical 2.5 Branch mcg/actuati on [place] fluticasone Yes [id number] 1{puff} Inhale 1 [facility] propion-anjum 2-22 Puff in ity o f meteroL 00:00: the [place] (ADVAIR 00 morning Medical DISKUS) and 1 Puff Branch 250-50 in the mcg/dose evening. inhalation disk tiotropium Yes [id number] 1{puff} Inhale 1 [facility] bromide 2-22 Puff ity of (SPIRIVA 00:00: daily. [place] RESPIMAT) 00 Medical 2.5 Branch mcg/actuati on [place] fluticasone Yes [id number] 1{puff} Inhale 1 [facility] propion-anjum 2-22 Puff in ity o f meteroL 00:00: the [place] (ADVAIR 00 morning Medical DISKUS) and 1 Puff Branch 250-50 in the mcg/dose evening. inhalation disk tiotropium Yes [id number] 1{puff} Inhale 1 [facility] bromide 2-22 Puff ity of (SPIRIVA 00:00: daily. [place] RESPIMAT) Medical 2.5 Branch mcg/actuati on [place] fluticasone Yes [id number] 1{puff} Inhale 1 [facility] propion-anjum 2-22 Puff in ity o f meteroL 00:00: the [place] (ADVAIR 00 morning Medical DISKUS) and 1 Puff Branch 250-50 in the mcg/dose evening. inhalation disk tiotropium Yes [id number] 1{puff} Inhale 1 [facility] bromide 2-22 Puff ity of (SPIRIVA 00:00: daily. [place] RESPIMAT) 00 Medical 2.5 Branch mcg/actuati on Mist fluticasone Yes [id number] 1{puff} Inhale 1 [facility] propion-anjum 2-22 Puff in ity o f meteroL 00:00: the [place] (ADVAIR morning Medical DISKUS) and 1 Puff Branch 250-50 in the mcg/dose evening. inhalation disk tiotropium Yes [id number] 1{puff} Inhale 1 [facility] bromide 2-22 Puff ity of (SPIRIVA 00:00: daily. [place] RESPIMAT) Medical 2.5 Branch mcg/actuati on Mist fluticasone Yes [id number] 1{puff} Inhale 1 [facility] propion-anjum 2-22 Puff in ity o f meteroL 00:00: the [place] (ADVAIR 00 morning Medical DISKUS) and 1 Puff Branch 250-50 in the mcg/dose evening. inhalation disk tiotropium Yes [id number] 1{puff} Inhale 1 [facility] bromide 2-22 Puff ity of (SPIRIVA 00:00: daily. [place] RESPIMAT) 00 Medical 2.5 Branch mcg/actuati on Mist fluticasone Yes [id number] 1{puff} Inhale 1 [facility] propion-anjum 2-22 Puff in ity o f meteroL 00:00: the [place] (ADVAIR 00 morning Medical DISKUS) and 1 Puff Branch 250-50 in the mcg/dose evening. inhalation disk tiotropium Yes [id number] 1{puff} Inhale 1 [facility] bromide 2-22 Puff ity of (SPIRIVA 00:00: daily. [place] RESPIMAT) Medical 2.5 Branch mcg/actuati on Mist fluticasone Yes [id number] 1{puff} Inhale 1 [facility] propion-anjum 2-22 Puff in ity o f meteroL 00:00: the [place] (ADVAIR 00 morning Medical DISKUS) and 1 Puff Branch 250-50 in the mcg/dose evening. inhalation disk tiotropium Yes [id number] 1{puff} Inhale 1 [facility] bromide 2-22 Puff ity of (SPIRIVA 00:00: daily. [place] RESPIMAT) Medical 2.5 Branch mcg/actuati on Mist fluticasone Yes [id number] 1{puff} Inhale 1 [facility] propion-anjum 2-22 Puff in ity o f meteroL 00:00: the [place] (ADVAIR morning Medical DISKUS) and 1 Puff Branch 250-50 in the mcg/dose evening. inhalation disk tiotropium Yes [id number] 1{puff} Inhale 1 [facility] bromide 2-22 Puff ity of (SPIRIVA 00:00: daily. [place] RESPIMAT) Medical 2.5 Branch mcg/actuati on Mist fluticasone Yes [id number] 1{puff} Inhale 1 [facility] propion-anjum 2-22 Puff in ity o f meteroL 00:00: the [place] (ADVAIR 00 morning Medical DISKUS) and 1 Puff Branch 250-50 in the mcg/dose evening. inhalation disk tiotropium Yes [id number] 1{puff} Inhale 1 [facility] bromide 2-22 Puff ity of (SPIRIVA 00:00: daily. [place] RESPIMAT) 00 Medical 2.5 Branch mcg/actuati on Mist fluticasone Yes [id number] 1{puff} Inhale 1 [facility] propion-anjum 2-22 Puff in ity o f meteroL 00:00: the [place] (ADVAIR 00 morning Medical DISKUS) and 1 Puff Branch 250-50 in the mcg/dose evening. inhalation disk tiotropium Yes [id number] 1{puff} Inhale 1 [facility] bromide 2-22 Puff ity of (SPIRIVA 00:00: daily. [place] RESPIMAT) 00 Medical 2.5 Branch mcg/actuati on Mist fluticasone Yes [id number] 1{puff} Inhale 1 [facility] propion-anjum 2-22 Puff in ity o f meteroL 00:00: the [place] (ADVAIR morning Medical DISKUS) and 1 Puff Branch 250-50 in the mcg/dose evening. inhalation disk tiotropium Yes [id number] 1{puff} Inhale 1 [facility] bromide 2-22 Puff ity of (SPIRIVA 00:00: daily. [place] RESPIMAT) Medical 2.5 Branch mcg/actuati on Mist fluticasone Yes [id number] 1{puff} Inhale 1 [facility] propion-anjum 2-22 Puff in ity o f meteroL 00:00: the [place] (ADVAIR morning Medical DISKUS) and 1 Puff Branch 250-50 in the mcg/dose evening. inhalation disk tiotropium Yes [id number] 1{puff} Inhale 1 [facility] bromide 2-22 Puff ity of (SPIRIVA 00:00: daily. [place] RESPIMAT) Medical 2.5 Branch mcg/actuati on Mist fluticasone Yes [id number] 1{puff} Inhale 1 [facility] propion-anjum 2-22 Puff in ity o f meteroL 00:00: the [place] (ADVAIR morning Medical DISKUS) and 1 Puff Branch 250-50 in the mcg/dose evening. inhalation disk tiotropium Yes [id number] 1{puff} Inhale 1 [facility] bromide 2-22 Puff ity of (SPIRIVA 00:00: daily. [place] RESPIMAT) 00 Medical 2.5 Branch mcg/actuati on Mist fluticasone Yes [id number] 1{puff} Inhale 1 [facility] propion-anjum 2-22 Puff in ity o f meteroL 00:00: the [place] (ADVAIR 00 morning Medical DISKUS) and 1 Puff Branch 250-50 in the mcg/dose evening. inhalation disk tiotropium Yes [id number] 1{puff} Inhale 1 [facility] bromide 2-22 Puff ity of (SPIRIVA 00:00: daily. [place] RESPIMAT) 00 Medical 2.5 Branch mcg/actuati on Mist fluticasone Yes [id number] 1{puff} Inhale 1 [facility] propion-anjum 2-22 Puff in ity o f meteroL 00:00: the [place] (ADVAIR 00 morning Medical DISKUS) and 1 Puff Branch 250-50 in the mcg/dose evening. inhalation disk tiotropium Yes [id number] 1{puff} Inhale 1 [facility] bromide 2-22 Puff ity of (SPIRIVA 00:00: daily. [place] RESPIMAT) 00 Medical 2.5 Branch mcg/actuati on Mist fluticasone Yes [id number] 1{puff} Inhale 1 [facility] propion-anjum 2-22 Puff in ity o f meteroL 00:00: the [place] (ADVAIR 00 morning Medical DISKUS) and 1 Puff Branch 250-50 in the mcg/dose evening. inhalation disk tiotropium Yes [id number] 1{puff} Inhale 1 [facility] bromide 2-22 Puff ity of (SPIRIVA 00:00: daily. [place] RESPIMAT) 00 Medical 2.5 Branch mcg/actuati on Mist fluticasone Yes [id number] 1{puff} Inhale 1 [facility] propion-anjum 2-22 Puff in ity o f meteroL 00:00: the [place] (ADVAIR 00 morning Medical DISKUS) and 1 Puff Branch 250-50 in the mcg/dose evening. inhalation disk tiotropium Yes [id number] 1{puff} Inhale 1 [facility] bromide 2-22 Puff ity of (SPIRIVA 00:00: daily. [place] RESPIMAT) 00 Medical 2.5 Branch mcg/actuati on Mist fluticasone Yes [id number] 1{puff} Inhale 1 [facility] propion-anjum 2-22 Puff in ity o f meteroL 00:00: the [place] (ADVAIR 00 morning Medical DISKUS) and 1 Puff Branch 250-50 in the mcg/dose evening. inhalation disk tiotropium Yes [id number] 1{puff} Inhale 1 [facility] bromide 2-22 Puff ity of (SPIRIVA 00:00: daily. [place] RESPIMAT) 00 Medical 2.5 Branch mcg/actuati on Mist fluticasone Yes 1{puff} Inhale 1 [facility] propion-anjum 2-22 Puff in ity o f meteroL 00:00: the [place] (ADVAIR 00 morning Medical DISKUS) and 1 Puff Branch 250-50 in the mcg/dose evening. inhalation disk tiotropium Yes 1{puff} Inhale 1 [facility] bromide 2-22 Puff ity of (SPIRIVA 00:00: daily. [place] RESPIMAT) 00 Medical 2.5 Branch mcg/actuati on Mist fluticasone Yes [id number] 1{puff} Inhale 1 [facility] propion-anjum 2-22 Puff in ity o f meteroL 00:00: the [place] (ADVAIR 00 morning Medical DISKUS) and 1 Puff Branch 250-50 in the mcg/dose evening. inhalation disk tiotropium Yes [id number] 1{puff} Inhale 1 [facility] bromide 2-22 Puff ity of (SPIRIVA 00:00: daily. [place] RESPIMAT) 00 Medical 2.5 Branch mcg/actuati on Mist fluticasone Yes [id number] 1{puff} Inhale 1 [facility] propion-anjum 2-22 Puff in ity o f meteroL 00:00: the [place] (ADVAIR 00 morning Medical DISKUS) and 1 Puff Branch 250-50 in the mcg/dose evening. inhalation disk tiotropium Yes [id number] 1{puff} Inhale 1 [facility] bromide 2-22 Puff ity of (SPIRIVA 00:00: daily. [place] RESPIMAT) 00 Medical 2.5 Branch mcg/actuati on Mist fluticasone Yes 1{puff} Inhale 1 [facility] propion-anjum 2-22 Puff in ity o f meteroL 00:00: the [place] (ADVAIR 00 morning Medical DISKUS) and 1 Puff Branch 250-50 in the mcg/dose evening. inhalation disk tiotropium Yes [id number] 1{puff} Inhale 1 [facility] bromide 2-22 Puff ity of (SPIRIVA 00:00: daily. [place] RESPIMAT) 00 Medical 2.5 Branch mcg/actuati on Mist fluticasone Yes [id number] 1{puff} Inhale 1 [facility] propion-anjum 2-22 Puff in ity o f meteroL 00:00: the [place] (ADVAIR 00 morning Medical DISKUS) and 1 Puff Branch 250-50 in the mcg/dose evening. inhalation disk tiotropium Yes [id number] 1{puff} Inhale 1 [facility] bromide 2-22 Puff ity of (SPIRIVA 00:00: daily. [place] RESPIMAT) 00 Medical 2.5 Branch mcg/actuati on Mist fluticasone Yes [id number] 1{puff} Inhale 1 [facility] propion-anjum 2-22 Puff in ity o f meteroL 00:00: the [place] (ADVAIR morning Medical DISKUS) and 1 Puff Branch 250-50 in the mcg/dose evening. inhalation disk tiotropium Yes [id number] 1{puff} Inhale 1 [facility] bromide 2-22 Puff ity of (SPIRIVA 00:00: daily. [place] RESPIMAT) 00 Medical 2.5 Branch mcg/actuati on Mist fluticasone Yes [id number] 1{puff} Inhale 1 [facility] propion-anjum 2-22 Puff in ity o f meteroL 00:00: the [place] (ADVAIR morning Medical DISKUS) and 1 Puff Branch 250-50 in the mcg/dose evening. inhalation disk tiotropium Yes [id number] 1{puff} Inhale 1 [facility] bromide 2-22 Puff ity of (SPIRIVA 00:00: daily. [place] RESPIMAT) 00 Medical 2.5 Branch mcg/actuati on Mist fluticasone Yes [id number] 1{puff} Inhale 1 [facility] propion-anjum 2-22 Puff in ity o f meteroL 00:00: the [place] (ADVAIR 00 morning Medical DISKUS) and 1 Puff Branch 250-50 in the mcg/dose evening. inhalation disk tiotropium Yes 1{puff} Inhale 1 [facility] bromide 2-22 Puff ity of (SPIRIVA 00:00: daily. [place] RESPIMAT) 00 Medical 2.5 Branch mcg/actuati on Mist fluticasone Yes 1{puff} Inhale 1 [facility] propion-anjum 2-22 Puff in ity o f meteroL 00:00: the [place] (ADVAIR 00 morning Medical DISKUS) and 1 Puff Branch 250-50 in the mcg/dose evening. inhalation disk tiotropium Yes 1{puff} Inhale 1 [facility] bromide 2-22 Puff ity of (SPIRIVA 00:00: daily. [place] RESPIMAT) 00 Medical 2.5 Branch mcg/actuati on Mist fluticasone Yes 1{puff} Inhale 1 [facility] propion-anjum 2-22 Puff in ity o f meteroL 00:00: the [place] (ADVAIR morning Medical DISKUS) and 1 Puff Branch 250-50 in the mcg/dose evening. inhalation disk tiotropium Yes 1{puff} Inhale 1 [facility] bromide 2-22 Puff ity of (SPIRIVA 00:00: daily. [place] RESPIMAT) Medical 2.5 Branch mcg/actuati on Mist fluticasone Yes [id number] 1{puff} Inhale 1 [facility] propion-anjum 2-22 Puff in ity o f meteroL 00:00: the [place] (ADVAIR 00 morning Medical DISKUS) and 1 Puff Branch 250-50 in the mcg/dose evening. inhalation disk tiotropium Yes 1{puff} Inhale 1 [facility] bromide 2-22 Puff ity of (SPIRIVA 00:00: daily. [place] RESPIMAT) 00 Medical 2.5 Branch mcg/actuati on Mist fluticasone 0 Yes 1{puff} Inhale 1 [facility] propion-anjum 2-22 Puff in ity o f meteroL 00:00: the [place] (ADVAIR 00 morning Medical DISKUS) and 1 Puff Branch 250-50 in the mcg/dose evening. inhalation disk tiotropium Yes [id number] 1{puff} Inhale 1 [facility] bromide 2-22 Puff ity of (SPIRIVA 00:00: daily. [place] RESPIMAT) 00 Medical 2.5 Branch mcg/actuati on Mist fluticasone 0 Yes 1{puff} Inhale 1 [facility] propion-anjum 2-22 Puff in ity o f meteroL 00:00: the [place] (ADVAIR 00 morning Medical DISKUS) and 1 Puff Branch 250-50 in the mcg/dose evening. inhalation disk tiotropium 0 Yes [id number] 1{puff} Inhale 1 [facility] bromide 2-22 Puff ity of (SPIRIVA 00:00: daily. [place] RESPIMAT) 00 Medical 2.5 Branch mcg/actuati on Mist fluticasone 0 Yes [id number] 1{puff} Inhale 1 [facility] propion-anjum 2-22 Puff in ity o f meteroL 00:00: the [place] (ADVAIR 00 morning Medical DISKUS) and 1 Puff Branch 250-50 in the mcg/dose evening. inhalation disk tiotropium Yes [id number] 1{puff} Inhale 1 [facility] bromide 2-22 Puff ity of (SPIRIVA 00:00: daily. [place] RESPIMAT) 00 Medical 2.5 Branch mcg/actuati on Mist fluticasone 0 2022- No [id number] 1{puff} Inhale 1 [facility] propion-anjum 2-22 05-04 Puff in ity of meteroL 00:00: 00:00 [facility] (ADVAIR 00 :00 morning Medical DISKUS) and 1 Puff Branch 250-50 in the mcg/dose evening. inhalation disk fluticasone 2022-0 2022- No [id number] 1{puff} Inhale 1 [facility] propion-anjum 2-22 05-04 Puff in ity of meteroL 00:00: 00:00 [facility] (ADVAIR 00 :00 morning Medical DISKUS) and 1 Puff Branch 250-50 in the mcg/dose evening. inhalation disk cholecalcif 2022- No [id number] 1{capsu Take 1 [facility] raj, 08-01 9108 le} capsule by ity of vitamin D3, 00:00: 00:[place] (VITAMIN 00 :00 daily. Medical D3) 100 mcg [place] (4,000 unit) Cap gabapentin 2022- No [id number] 100mg Take 1 Univers (NEURONTIN) 08-01 9108 capsule by i ty of 100 mg 00:00: 00:00 mouth in [place] capsule 00 :00 the Medical morning Branch and 1 capsule at noon and 1 capsule in the evening. albuterol 2022- No [id number] 2{puff} Inhale 2 Univers 90 2- 03-08 Puffs ity of mcg/actuati 00:00: 00:00 every 4 [place] on inhaler 00 :00 (four) Medical hours as Branch needed for Wheezing, Shortness of Breath or Bronchospa sm. albuterol 2022- No [id number] 2{puff} Inhale 2 Univers 90 08-01 03-08 Puffs ity of mcg/actuati 00:00: 00:00 every 4 [place] on inhaler 00 :00 (four) Medical hours as Branch needed for Wheezing, Shortness of Breath or Bronchospa sm. amLODIPine Yes [id number] 10mg Take 1 U nivers 10 mg 1-05 tablet by ity of tablet 00:00: mouth in [place] the morning. Branch carvediloL Yes [id number] 12.5mg Take 1 Univers 12.5 mg 1-05 tablet by ity of tablet 00:00: mouth in [place] the morning Branch and 1 tablet in the evening. Take with meals. azelastine Yes [id number] 1{spray Use 1 Univers 137 mcg 1-05 } [place] in ity of (0.1 %) 00:00: each [place] nasal spray 00 nostril in [facility] the morning and 1 [place] in the evening. Use in each nostril as directed amLODIPine Yes [id number] 10mg Take 1 U nivers 10 mg 1-05 tablet by ity of tablet 00:00: mouth in [place] the morning. Branch carvediloL 3-0 Yes [id number] 12.5mg Take 1 Univers 12.5 mg 1-05 tablet by ity of tablet 00:00: mouth in [address] Branch and 1 tablet in the evening. Take with meals. azelastine 2022-0 Yes [id number] 1{spray Use 1 Univers 137 mcg 1-05 } [place] in ity of (0.1 %) 00:00: each [place] nasal spray 00 nostril in [facility] morning and 1 [place] in the evening. Use in each nostril as directed amLODIPine 3-0 Yes [id number] 10mg Take 1 U nivers 10 mg 1-05 tablet by ity of tablet 00:00: mouth in [place] the . Branch carvediloL 2022-0 Yes [id number] 12.5mg Take 1 [facility] 12.5 mg 1-05 tablet by ity of tablet 00:00: mouth in [address] Branch and 1 tablet in the evening. Take with meals. azelastine 2022-0 Yes [id number] 1{spray Use 1 [facility] 137 mcg 1-05 } [place] in ity of (0.1 %) 00:00: each [place] nasal spray 00 nostril in [facility] morning and 1 [place] in the evening. Use in each nostril as directed amLODIPine 2022-0 Yes [id number] 10mg Take 1 U nivers 10 mg 1-05 tablet by ity of tablet 00:00: mouth in [place] the . Branch carvediloL 2022-0 Yes [id number] 12.5mg Take 1 [facility] 12.5 mg 1-05 tablet by ity of tablet 00:00: mouth in [address] Branch and 1 tablet in the evening. Take with meals. azelastine 3-0 Yes [id number] 1{spray Use 1 [facility] 137 mcg 1-05 } [place] in ity of (0.1 %) 00:00: each [place] nasal spray 00 nostril in [facility] morning and 1 [place] in the evening. Use in each nostril as directed amLODIPine 3-0 Yes [id number] 10mg Take 1 U nivers 10 mg 1-05 tablet by ity of tablet 00:00: mouth in [place] [address] the morning. Branch carvediloL 3-0 Yes [id number] 12.5mg Take 1 Univers 12.5 mg 1-05 tablet by ity of tablet 00:00: mouth in [place] the [facility] morning Branch and 1 tablet in the evening. Take with meals. azelastine 3-0 Yes [id number] 1{spray Use 1 [facility] 137 mcg 1-05 } [place] in ity of (0.1 %) 00:00: each [place] nasal spray 00 nostril in [facility] morning and 1 [place] in the evening. Use in each nostril as directed amLODIPine 2022-0 Yes [id number] 10mg Take 1 U nivers 10 mg 1-05 tablet by ity of tablet 00:00: mouth in [place] the morning. Branch carvediloL 2022-0 Yes [id number] 12.5mg Take 1 Univers 12.5 mg 1-05 tablet by ity of tablet 00:00: mouth in [address] Branch and 1 tablet in the evening. Take with meals. azelastine 2022-0 Yes [id number] 1{spray Use 1 [facility] 137 mcg 1-05 } [place] in ity of (0.1 %) 00:00: each [place] nasal spray 00 nostril in [facility] morning and 1 [place] in the evening. Use in each nostril as directed amLODIPine 2022-0 Yes [id number] 10mg Take 1 U nivers 10 mg 1-05 tablet by ity of tablet 00:00: mouth in [place] the . Branch carvediloL 2022-0 Yes [id number] 12.5mg Take 1 [facility] 12.5 mg 1-05 tablet by ity of tablet 00:00: mouth in [address] Branch and 1 tablet in the evening. Take with meals. azelastine 3-0 Yes [id number] 1{spray Use 1 [facility] 137 mcg 1-05 } [place] in ity of (0.1 %) 00:00: each [place] nasal spray 00 nostril in [facility] morning and 1 [place] in the evening. Use in each nostril as directed amLODIPine 3-0 Yes [id number] 10mg Take 1 U nivers 10 mg 1-05 tablet by ity of tablet 00:00: mouth in [place] [address] the morning. Branch carvediloL 3-0 Yes [id number] 12.5mg Take 1 [facility] 12.5 mg 1-05 tablet by ity of tablet 00:00: mouth in [address] morning Branch and 1 tablet in the evening. Take with meals. azelastine 3-0 Yes [id number] 1{spray Use 1 [facility] 137 mcg 1-05 } [place] in ity of (0.1 %) 00:00: each [place] nasal spray 00 nostril in [facility] morning and 1 [place] in the evening. Use in each nostril as directed amLODIPine 3-0 Yes [id number] 10mg Take 1 U nivers 10 mg 1-05 tablet by ity of tablet 00:00: mouth in [place] the morning. Branch carvediloL 2022-0 Yes [id number] 12.5mg Take 1 [facility] 12.5 mg 1-05 tablet by ity of tablet 00:00: mouth in [address] Branch and 1 tablet in the evening. Take with meals. azelastine 2022-0 Yes [id number] 1{spray Use 1 [facility] 137 mcg 1-05 } [place] in ity of (0.1 %) 00:00: each [place] nasal spray 00 nostril in [facility] morning and 1 [place] in the evening. Use in each nostril as directed amLODIPine 2022-0 Yes [id number] 10mg Take 1 U nivers 10 mg 1-05 tablet by ity of tablet 00:00: mouth in [place] [address] the . Branch carvediloL 2022-0 Yes [id number] 12.5mg Take 1 [facility] 12.5 mg 1-05 tablet by ity of tablet 00:00: mouth in [address] Branch and 1 tablet in the evening. Take with meals. azelastine 3-0 Yes [id number] 1{spray Use 1 [facility] 137 mcg 1-05 } [place] in ity of (0.1 %) 00:00: each [place] nasal spray 00 nostril in [facility] morning and 1 [place] in the evening. Use in each nostril as directed amLODIPine 3-0 Yes [id number] 10mg Take 1 U nivers 10 mg 1-05 tablet by ity of tablet 00:00: mouth in [place] [address] the morning. Branch carvediloL 2022-0 Yes [id number] 12.5mg Take 1 [facility] 12.5 mg 1-05 tablet by ity of tablet 00:00: mouth in [address] morning Branch and 1 tablet in the evening. Take with meals. azelastine 2022-0 Yes [id number] 1{spray Use 1 [facility] 137 mcg 1-05 } [place] in ity of (0.1 %) 00:00: each [place] nasal spray 00 nostril in [facility] morning and 1 [place] in the evening. Use in each nostril as directed amLODIPine 2022-0 Yes [id number] 10mg Take 1 U nivers 10 mg 1-05 tablet by ity of tablet 00:00: mouth in [place] the morning. Branch carvediloL 2022-0 Yes [id number] 12.5mg Take 1 [facility] 12.5 mg 1-05 tablet by ity of tablet 00:00: mouth in [address] Branch and 1 tablet in the evening. Take with meals. azelastine 2022-0 Yes [id number] 1{spray Use 1 [facility] 137 mcg 1-05 } [place] in ity of (0.1 %) 00:00: each [place] nasal spray 00 nostril in [facility] morning and 1 [place] in the evening. Use in each nostril as directed amLODIPine 2022-0 Yes [id number] 10mg Take 1 U nivers 10 mg 1-05 tablet by ity of tablet 00:00: mouth in [place] [id number] the . Branch carvediloL 2022-0 Yes [id number] 12.5mg Take 1 Univers 12.5 mg 1-05 tablet by ity of tablet 00:00: mouth in [address] Branch and 1 tablet in the evening. Take with meals. azelastine 3-0 Yes [id number] 1{spray Use 1 [facility] 137 mcg 1-05 } [place] in ity of (0.1 %) 00:00: each [place] nasal spray 00 nostril in [facility] morning and 1 [place] in the evening. Use in each nostril as directed amLODIPine 3-0 Yes [id number] 10mg Take 1 U nivers 10 mg 1-05 tablet by ity of tablet 00:00: mouth in [place] [address] the morning. Branch carvediloL 3-0 Yes [id number] 12.5mg Take 1 [facility] 12.5 mg 1-05 tablet by ity of tablet 00:00: mouth in [address] Branch and 1 tablet in the evening. Take with meals. azelastine 3-0 Yes [id number] 1{spray Use 1 [facility] 137 mcg 1-05 } [place] in ity of (0.1 %) 00:00: each [place] nasal spray 00 nostril in [facility] morning and 1 [place] in the evening. Use in each nostril as directed amLODIPine 2022-0 Yes [id number] 10mg Take 1 U nivers 10 mg 1-05 tablet by ity of tablet 00:00: mouth in [place] [address] [facility] . Branch carvediloL 2022-0 Yes [id number] 12.5mg Take 1 [facility] 12.5 mg 1-05 tablet by ity of tablet 00:00: mouth in [address] Branch and 1 tablet in the evening. Take with meals. azelastine 2022-0 Yes [id number] 1{spray Use 1 [facility] 137 mcg 1-05 } [place] in ity of (0.1 %) 00:00: each [place] nasal spray 00 nostril in [facility] morning and 1 [place] in the evening. Use in each nostril as directed amLODIPine 3-0 Yes [id number] 10mg Take 1 [facility] nivers 10 mg 1-05 tablet by ity of tablet 00:00: mouth in [place] [address] [facility] . Branch carvediloL 2022-0 Yes [id number] 12.5mg Take 1 [facility] 12.5 mg 1-05 tablet by ity of tablet 00:00: mouth in [address] Branch and 1 tablet in the evening. Take with meals. azelastine 3-0 Yes [id number] 1{spray Use 1 [facility] 137 mcg 1-05 } [place] in ity of (0.1 %) 00:00: each [place] nasal spray 00 nostril in [facility] morning and 1 [place] in the evening. Use in each nostril as directed amLODIPine 3-0 Yes [id number] 10mg Take 1 [facility] nivers 10 mg 1-05 tablet by ity of tablet 00:00: mouth in [place] [address] [facility] . Branch carvediloL 3-0 Yes [id number] 12.5mg Take 1 [facility] 12.5 mg 1-05 tablet by ity of tablet 00:00: mouth in [address] Branch and 1 tablet in the evening. Take with meals. azelastine 3-0 Yes [id number] 1{spray Use 1 [facility] 137 mcg 1-05 } [place] in ity of (0.1 %) 00:00: each [place] nasal spray 00 nostril in [facility] morning and 1 [place] in the evening. Use in each nostril as directed amLODIPine 3-0 Yes [id number] 10mg Take 1 [facility] nivers 10 mg 1-05 tablet by ity of tablet 00:00: mouth in [place] [address] [facility] morning. Branch carvediloL 3-0 Yes [id number] 12.5mg Take 1 [facility] 12.5 mg 1-05 tablet by ity of tablet 00:00: mouth in [address] Branch and 1 tablet in the evening. Take with meals. azelastine 2022-0 Yes [id number] 1{spray Use 1 [facility] 137 mcg 1-05 } [place] in ity of (0.1 %) 00:00: each [place] nasal spray 00 nostril in [facility] morning and 1 [place] in the evening. Use in each nostril as directed amLODIPine 3-0 Yes [id number] 10mg Take 1 [facility] nivers 10 mg 1-05 tablet by ity of tablet 00:00: mouth in [place] [address] [facility] . Branch carvediloL 3-0 Yes [id number] 12.5mg Take 1 [facility] 12.5 mg 1-05 tablet by ity of tablet 00:00: mouth in [address] Branch and 1 tablet in the evening. Take with meals. azelastine 3-0 Yes [id number] 1{spray Use 1 [facility] 137 mcg 1-05 } [place] in ity of (0.1 %) 00:00: each [place] nasal spray 00 nostril in [facility] morning and 1 [place] in the evening. Use in each nostril as directed amLODIPine 3-0 Yes [id number] 10mg Take 1 [facility] nivers 10 mg 1-05 tablet by ity of tablet 00:00: mouth in [place] [address] [facility] morning. Branch carvediloL 3-0 Yes [id number] 12.5mg Take 1 [facility] 12.5 mg 1-05 tablet by ity of tablet 00:00: mouth in [address] morning Branch and 1 tablet in the evening. Take with meals. azelastine 3-0 Yes [id number] 1{spray Use 1 [facility] 137 mcg 1-05 } [place] in ity of (0.1 %) 00:00: each [place] nasal spray 00 nostril in [facility] morning and 1 [place] in the evening. Use in each nostril as directed amLODIPine 3-0 Yes [id number] 10mg Take 1 [facility] nivers 10 mg 1-05 tablet by ity of tablet 00:00: mouth in [place] [address] [facility] morning. Branch carvediloL 3-0 Yes [id number] 12.5mg Take 1 [facility] 12.5 mg 1-05 tablet by ity of tablet 00:00: mouth in [address] Branch and 1 tablet in the evening. Take with meals. azelastine 2022-0 Yes [id number] 1{spray Use 1 [facility] 137 mcg 1-05 } [place] in ity of (0.1 %) 00:00: each [place] nasal spray 00 nostril in [facility] morning and 1 [place] in the evening. Use in each nostril as directed amLODIPine 3-0 Yes [id number] 10mg Take 1 [facility] nivers 10 mg 1-05 tablet by ity of tablet 00:00: mouth in [place] the . Branch carvediloL 2022-0 Yes [id number] 12.5mg Take 1 [facility] 12.5 mg 1-05 tablet by ity of tablet 00:00: mouth in [address] Branch and 1 tablet in the evening. Take with meals. azelastine 3-0 Yes [id number] 1{spray Use 1 [facility] 137 mcg 1-05 } [place] in ity of (0.1 %) 00:00: each [place] nasal spray 00 nostril in [facility] morning and 1 [place] in the evening. Use in each nostril as directed amLODIPine 3-0 Yes [id number] 10mg Take 1 [facility] nivers 10 mg 1-05 tablet by ity of tablet 00:00: mouth in [place] [address] [facility] morning. Branch carvediloL 3-0 Yes [id number] 12.5mg Take 1 [facility] 12.5 mg 1-05 tablet by ity of tablet 00:00: mouth in [address] Branch and 1 tablet in the evening. Take with meals. azelastine 3-0 Yes [id number] 1{spray Use 1 [facility] 137 mcg 1-05 } [place] in ity of (0.1 %) 00:00: each [place] nasal spray 00 nostril in [facility] morning and 1 [place] in the evening. Use in each nostril as directed amLODIPine 3-0 Yes [id number] 10mg Take 1 [facility] 10 mg 1-05 tablet by ity of tablet 00:00: mouth in [place] [address] [facility] morning. Branch carvediloL 2022-0 Yes [id number] 12.5mg Take 1 [facility] 12.5 mg 1-05 tablet by ity of tablet 00:00: mouth in [address] Branch and 1 tablet in the evening. Take with meals. azelastine 2022-0 Yes [id number] 1{spray Use 1 [facility] 137 mcg 1-05 } [place] in ity of (0.1 %) 00:00: each [place] nasal spray 00 nostril in [facility] morning and 1 [place] in the evening. Use in each nostril as directed amLODIPine 2022-0 Yes [id number] 10mg Take 1 [facility] nivers 10 mg 1-05 tablet by ity of tablet 00:00: mouth in [place] [address] the . Branch carvediloL 2022-0 Yes [id number] 12.5mg Take 1 [facility] 12.5 mg 1-05 tablet by ity of tablet 00:00: mouth in [address] and 1 tablet in the evening. Take with meals. azelastine 2022-0 Yes [id number] 1{spray Use 1 [facility] 137 mcg 1-05 } [place] in ity of (0.1 %) 00:00: each [place] nasal spray 00 nostril in [facility] morning and 1 [place] in the evening. Use in each nostril as directed amLODIPine 3-0 Yes [id number] 10mg Take 1 [facility] nivers 10 mg 1-05 tablet by ity of tablet 00:00: mouth in [place] [address] [facility] morning. Branch carvediloL 3-0 Yes [id number] 12.5mg Take 1 [facility] 12.5 mg 1-05 tablet by ity of tablet 00:00: mouth in [address] Branch and 1 tablet in the evening. Take with meals. azelastine 3-0 Yes [id number] 1{spray Use 1 [facility] 137 mcg 1-05 } [place] in ity of (0.1 %) 00:00: each [place] nasal spray 00 nostril in [facility] morning and 1 [place] in the evening. Use in each nostril as directed amLODIPine 3-0 Yes [id number] 10mg Take 1 [facility] nivers 10 mg 1-05 tablet by ity of tablet 00:00: mouth in [place] [address] [facility] morning. Branch carvediloL 3-0 Yes [id number] 12.5mg Take 1 [facility] 12.5 mg 1-05 tablet by ity of tablet 00:00: mouth in [address] Branch and 1 tablet in the evening. Take with meals. azelastine 2022-0 Yes [id number] 1{spray Use 1 [facility] 137 mcg 1-05 } [place] in ity of (0.1 %) 00:00: each [place] nasal spray 00 nostril in [facility] morning and 1 [place] in the evening. Use in each nostril as directed amLODIPine 2022-0 Yes [id number] 10mg Take 1 [facility] nivers 10 mg 1-05 tablet by ity of tablet 00:00: mouth in [place] [address] the . Branch carvediloL 3-0 Yes [id number] 12.5mg Take 1 [facility] 12.5 mg 1-05 tablet by ity of tablet 00:00: mouth in [address] Branch and 1 tablet in the evening. Take with meals. azelastine 3-0 Yes [id number] 1{spray Use 1 [facility] 137 mcg 1-05 } [place] in ity of (0.1 %) 00:00: each [place] nasal spray 00 nostril in [facility] morning and 1 [place] in the evening. Use in each nostril as directed amLODIPine 3-0 Yes [id number] 10mg Take 1 [facility] 10 mg 1-05 tablet by ity of tablet 00:00: mouth in [place] [address] [facility] morning. Branch carvediloL 3-0 Yes [id number] 12.5mg Take 1 [facility] 12.5 mg 1-05 tablet by ity of tablet 00:00: mouth in [place] 00 the [facility] morning Branch and 1 tablet in the evening. Take with meals. azelastine 3-0 Yes [id number] 1{spray Use 1 [facility] 137 mcg 1-05 } [place] in ity of (0.1 %) 00:00: each [place] nasal spray 00 nostril in [facility] morning and 1 [place] in the evening. Use in each nostril as directed amLODIPine 3-0 Yes [id number] 10mg Take 1 [facility] 10 mg 1-05 tablet by ity of tablet 00:00: mouth in [place] the morning. Branch carvediloL 2022-0 Yes [id number] 12.5mg Take 1 [facility] 12.5 mg 1-05 tablet by ity of tablet 00:00: mouth in [address] Branch and 1 tablet in the evening. Take with meals. azelastine 2022-0 Yes [id number] 1{spray Use 1 [facility] 137 mcg 1-05 } [place] in ity of (0.1 %) 00:00: each [place] nasal spray 00 nostril in [facility] morning and 1 [place] in the evening. Use in each nostril as directed amLODIPine 2022-0 Yes [id number] 10mg Take 1 [facility] 10 mg 1-05 tablet by ity of tablet 00:00: mouth in [place] the . Branch carvediloL 2022-0 Yes [id number] 12.5mg Take 1 [facility] 12.5 mg 1-05 tablet by ity of tablet 00:00: mouth in [address] Branch and 1 tablet in the evening. Take with meals. azelastine 3-0 Yes [id number] 1{spray Use 1 [facility] 137 mcg 1-05 } [place] in ity of (0.1 %) 00:00: each [place] nasal spray 00 nostril in [facility] morning and 1 [place] in the evening. Use in each nostril as directed amLODIPine 3-0 Yes [id number] 10mg Take 1 [facility] 10 mg 1-05 tablet by ity of tablet 00:00: mouth in [place] [address] [facility] . Branch carvediloL 3-0 Yes [id number] 12.5mg Take 1 [facility] 12.5 mg 1-05 tablet by ity of tablet 00:00: mouth in [address] Branch and 1 tablet in the evening. Take with meals. azelastine 3-0 Yes [id number] 1{spray Use 1 [facility] 137 mcg 1-05 } [place] in ity of (0.1 %) 00:00: each [place] nasal spray 00 nostril in [facility] morning and 1 [place] in the evening. Use in each nostril as directed amLODIPine 3-0 Yes [id number] 10mg Take 1 [facility] n[facility] 10 mg 1-05 tablet by ity of tablet 00:00: mouth in [place] the morning. Branch carvediloL 3-0 Yes [id number] 12.5mg Take 1 [facility] 12.5 mg 1-05 tablet by ity of tablet 00:00: mouth in [place] [address] [facility] morning Branch and 1 tablet in the evening. Take with meals. azelastine 2022-0 Yes [id number] 1{spray Use 1 [facility] 137 mcg 1-05 } [place] in ity of (0.1 %) 00:00: each [place] nasal spray 00 nostril in [facility] morning and 1 [place] in the evening. Use in each nostril as directed amLODIPine 3-0 Yes [id number] 10mg Take 1 [facility] nivers 10 mg 1-05 tablet by ity of tablet 00:00: mouth in [place] the . Branch carvediloL 3-0 Yes [id number] 12.5mg Take 1 [facility] 12.5 mg 1-05 tablet by ity of tablet 00:00: mouth in [address] morning Branch and 1 tablet in the evening. Take with meals. azelastine 3-0 Yes [id number] 1{spray Use 1 [facility] 137 mcg 1-05 } [place] in ity of (0.1 %) 00:00: each [place] nasal spray 00 nostril in [facility] morning and 1 [place] in the evening. Use in each nostril as directed amLODIPine 3-0 Yes [id number] 10mg Take 1 [facility] 10 mg 1-05 tablet by ity of tablet 00:00: mouth in [place] [address] the morning. Branch carvediloL 3-0 Yes [id number] 12.5mg Take 1 [facility] 12.5 mg 1-05 tablet by ity of tablet 00:00: mouth in [place] [address] [facility] morning Branch and 1 tablet in the evening. Take with meals. azelastine 2023-0 Yes [id number] 1{spray Use 1 [facility] 137 mcg 1-05 } [place] in ity of (0.1 %) 00:00: each [place] nasal spray 00 nostril in [facility] morning and 1 [place] in the evening. Use in each nostril as directed amLODIPine 3-0 Yes [id number] 10mg Take 1 [facility] 10 mg 1-05 tablet by ity of tablet 00:00: mouth in [place] the morning. Branch carvediloL 2022-0 Yes [id number] 12.5mg Take 1 [facility] 12.5 mg 1-05 tablet by ity of tablet 00:00: mouth in [place] [address] [facility] morning Branch and 1 tablet in the evening. Take with meals. azelastine 2022-0 Yes [id number] 1{spray Use 1 [facility] 137 mcg 1-05 } [place] in ity of (0.1 %) 00:00: each [place] nasal spray 00 nostril in [facility] morning and 1 [place] in the evening. Use in each nostril as directed amLODIPine 2022-0 Yes [id number] 10mg Take 1 [facility] 10 mg 1-05 tablet by ity of tablet 00:00: mouth in [place] the morning. Branch carvediloL 2022-0 Yes [id number] 12.5mg Take 1 [facility] 12.5 mg 1-05 tablet by ity of tablet 00:00: mouth in [address] Branch and 1 tablet in the evening. Take with meals. azelastine 2022-0 Yes [id number] 1{spray Use 1 [facility] 137 mcg 1-05 } [place] in ity of (0.1 %) 00:00: each [place] nasal spray 00 nostril in [facility] morning and 1 [place] in the evening. Use in each nostril as directed amLODIPine 3-0 Yes [id number] 10mg Take 1 [facility] 10 mg 1-05 tablet by ity of tablet 00:00: mouth in [place] [address] the morning. Branch carvediloL 2022-0 Yes [id number] 12.5mg Take 1 [facility] 12.5 mg 1-05 tablet by ity of tablet 00:00: mouth in [place] [address] [facility] morning Branch and 1 tablet in the evening. Take with meals. azelastine 2023-0 Yes [id number] 1{spray Use 1 [facility] 137 mcg 1-05 } [place] in ity of (0.1 %) 00:00: each [place] nasal spray 00 nostril in [facility] morning and 1 [place] in the evening. Use in each nostril as directed amLODIPine 2022-0 Yes [id number] 10mg Take 1 [facility] 10 mg 1-05 tablet by ity of tablet 00:00: mouth in [place] the morning. Branch carvediloL 2022-0 Yes [id number] 12.5mg Take 1 [facility] 12.5 mg 1-05 tablet by ity of tablet 00:00: mouth in [address] Branch and 1 tablet in the evening. Take with meals. azelastine 2022-0 Yes [id number] 1{spray Use 1 [facility] 137 mcg 1-05 } [place] in ity of (0.1 %) 00:00: each [place] nasal spray 00 nostril in [facility] morning and 1 [place] in the evening. Use in each nostril as directed amLODIPine 2022-0 Yes [id number] 10mg Take 1 [facility] 10 mg 1-05 tablet by ity of tablet 00:00: mouth in [place] the . Branch carvediloL 2022-0 Yes [id number] 12.5mg Take 1 [facility] 12.5 mg 1-05 tablet by ity of tablet 00:00: mouth in [address] Branch and 1 tablet in the evening. Take with meals. azelastine 2022-0 Yes [id number] 1{spray Use 1 [facility] 137 mcg 1-05 } [place] in ity of (0.1 %) 00:00: each [place] nasal spray 00 nostril in [facility] morning and 1 [place] in the evening. Use in each nostril as directed amLODIPine 3-0 Yes [id number] 10mg Take 1 [facility] n[facility] 10 mg 1-05 tablet by ity of tablet 00:00: mouth in [place] [address] the . Branch carvediloL 2022-0 Yes [id number] 12.5mg Take 1 [facility] 12.5 mg 1-05 tablet by ity of tablet 00:00: mouth in [place] [address] [facility] morning Branch and 1 tablet in the evening. Take with meals. azelastine 3-0 Yes [id number] 1{spray Use 1 [facility] 137 mcg 1-05 } [place] in ity of (0.1 %) 00:00: each [place] nasal spray 00 nostril in [facility] morning and 1 [place] in the evening. Use in each nostril as directed amLODIPine 3-0 Yes [id number] 10mg Take 1 [facility] 10 mg 1-05 tablet by ity of tablet 00:00: mouth in [place] the morning. Branch carvediloL 2022-0 Yes [id number] 12.5mg Take 1 [facility] 12.5 mg 1-05 tablet by ity of tablet 00:00: mouth in [place] [address] [facility] morning Branch and 1 tablet in the evening. Take with meals. azelastine 2022-0 Yes [id number] 1{spray Use 1 [facility] 137 mcg 1-05 } [place] in ity of (0.1 %) 00:00: each [place] nasal spray 00 nostril in [facility] morning and 1 [place] in the evening. Use in each nostril as directed amLODIPine 2022-0 Yes [id number] 10mg Take 1 [facility] 10 mg 1-05 tablet by ity of tablet 00:00: mouth in [place] the . Branch carvediloL 2022-0 Yes [id number] 12.5mg Take 1 [facility] 12.5 mg 1-05 tablet by ity of tablet 00:00: mouth in [place] [address] [facility] Branch and 1 tablet in the evening. Take with meals. azelastine 2022-0 Yes [id number] 1{spray Use 1 [facility] 137 mcg 1-05 } [place] in ity of (0.1 %) 00:00: each [place] nasal spray 00 nostril in [facility] morning and 1 [place] in the evening. Use in each nostril as directed amLODIPine 3-0 Yes [id number] 10mg Take 1 [facility] 10 mg 1-05 tablet by ity of tablet 00:00: mouth in [place] the morning. Branch carvediloL 2022-0 Yes [id number] 12.5mg Take 1 [facility] 12.5 mg 1-05 tablet by ity of tablet 00:00: mouth in [place] [address] [facility] morning Branch and 1 tablet in the evening. Take with meals. azelastine 3-0 Yes [id number] 1{spray Use 1 [facility] 137 mcg 1-05 } [place] in ity of (0.1 %) 00:00: each [place] nasal spray 00 nostril in [facility] [place] morning and 1 [place] in the evening. Use in each nostril as directed amLODIPine 2023-0 Yes [id number] 10mg Take 1 [facility] 10 mg 1-05 tablet by ity of tablet 00:00: mouth in [place] the Medical morning. Branch azelastine 2023-0 Yes [id number] 1{spray Use 1 [facility] 137 mcg 1-05 } [place] in ity of (0.1 %) 00:00: each [place] nasal spray 00 nostril in [facility] morning and 1 [place] in the evening. Use in each nostril as directed amLODIPine 2023-0 Yes [id number] 10mg Take 1 [facility] 10 mg 1-05 tablet by ity of tablet 00:00: mouth in [place] the morning. Branch azelastine 3-0 Yes [id number] 1{spray Use 1 [facility] 137 mcg 1-05 } [place] in ity of (0.1 %) 00:00: each [place] nasal spray 00 nostril in [facility] morning and 1 [place] in the evening. Use in each nostril as directed amLODIPine 2023-0 Yes [id number] 10mg Take 1 [facility] 10 mg 1-05 tablet by ity of tablet 00:00: mouth in [place] the morning. Branch azelastine 3-0 Yes [id number] 1{spray Use 1 [facility] 137 mcg 1-05 } [place] in ity of (0.1 %) 00:00: each [place] nasal spray 00 nostril in [facility] morning and 1 [place] in the evening. Use in each nostril as directed amLODIPine 2023-0 Yes [id number] 10mg Take 1 [facility] 10 mg 1-05 tablet by ity of tablet 00:00: mouth in [place] the Medical morning. Branch azelastine 2023-0 Yes [id number] 1{spray Use 1 [facility] 137 mcg 1-05 } [place] in ity of (0.1 %) 00:00: each [place] nasal spray 00 nostril in [facility] [place] morning and 1 [place] in the evening. Use in each nostril as directed amLODIPine 2023-0 Yes [id number] 10mg Take 1 [facility] 10 mg 1-05 tablet by ity of tablet 00:00: mouth in [place] the morning. Branch apixaban 2022-0 Yes 1358 2.5mg Take 1 [facility] 2.5 mg 1-05 tablet by ity of tablet 00:00: mouth in [place] 00 the morning Branch and 1 tablet in the evening. Indication s: atrial fibrillati on carvediloL 2022-0 Yes [id number] 12.5mg Take 1 [facility] 12.5 mg 1-05 tablet by ity of tablet 00:00: mouth in [place] the morning Branch and 1 tablet in the evening. Take with meals. chlorthalid 2022-0 Yes [id number] 25mg Take 1 [facility] one 25 mg 1-05 tablet by ity o f tablet 00:00: mouth in [place] 00 the morning. Branch furosemide 2022-0 Yes [id number] 20mg Take 1 [facility] 20 mg 1-05 tablet by ity of tablet 00:00: mouth in [place] the morning. Branch losartan 2022-0 Yes [id number] 100mg Take 1 [facility] 100 mg 1-05 tablet by ity of tablet 00:00: mouth in [place] the morning. Branch hydrALAZINE 2022-0 Yes [id number] 50mg Take 1 [facility] 50 mg 1-05 tablet by ity of tablet 00:00: mouth [place] 00 every 8 Medical (eight) Branch hours. azelastine 2022-0 Yes [id number] 1{spray Use 1 [facility] 137 mcg 1-05 } [place] in ity of (0.1 %) 00:00: each [place] nasal spray 00 nostril in [facility] the Branch morning and 1 [place] in the evening. Use in each nostril as directed amLODIPine 2022-0 Yes [id number] 10mg Take 1 [facility] 10 mg 1-05 tablet by ity of tablet 00:00: mouth in [place] the morning. Branch apixaban 2022-0 Yes 1358 2.5mg Take 1 [facility] 2.5 mg 1-05 tablet by ity of tablet 00:00: mouth in [place] [address] the morning Branch and 1 tablet in the evening. Indication s: atrial fibrillati on carvediloL 2022-0 Yes [id number] 12.5mg Take 1 [facility] 12.5 mg 1-05 tablet by ity of tablet 00:00: mouth in [place] the Medical morning Branch and 1 tablet in the evening. Take with meals. chlorthalid 2022-0 Yes [id number] 25mg Take 1 [facility] one 25 mg 1-05 tablet by ity o f tablet 00:00: mouth in [place] the morning. Branch furosemide 2022-0 Yes [id number] 20mg Take 1 [facility] 20 mg 1-05 tablet by ity of tablet 00:00: mouth in [place] the morning. Branch losartan 2022-0 Yes [id number] 100mg Take 1 [facility] 100 mg 1-05 tablet by ity of tablet 00:00: mouth in [place] the morning. Branch hydrALAZINE 2022-0 Yes [id number] 50mg Take 1 [facility] 50 mg 1-05 tablet by ity of tablet 00:00: mouth [place] 00 every 8 Medical (eight) Branch hours. azelastine 2022-0 Yes [id number] 1{spray Use 1 [facility] 137 mcg 1-05 } [place] in ity of (0.1 %) 00:00: each [place] nasal spray 00 nostril in [facility] the morning and 1 [place] in the evening. Use in each nostril as directed amLODIPine 2022-0 Yes [id number] 10mg Take 1 [facility] 10 mg 1-05 tablet by ity of tablet 00:00: mouth in [place] the morning. Branch apixaban 2022-0 Yes 1358 2.5mg Take 1 [facility] 2.5 mg 1-05 tablet by ity of tablet 00:00: mouth in [place] the morning Branch and 1 tablet in the evening. Indication s: atrial fibrillati on carvediloL 2022-0 Yes [id number] 12.5mg Take 1 [facility] 12.5 mg 1-05 tablet by ity of tablet 00:00: mouth in [place] the morning Branch and 1 tablet in the evening. Take with meals. chlorthalid 2022-0 Yes [id number] 25mg Take 1 [facility] one 25 mg 1-05 tablet by ity o f tablet 00:00: mouth in [place] the morning. Branch furosemide 2022-0 Yes [id number] 20mg Take 1 [facility] 20 mg 1-05 tablet by ity of tablet 00:00: mouth in [place] the morning. Branch losartan 2022-0 Yes [id number] 100mg Take 1 [facility] 100 mg 1-05 tablet by ity of tablet 00:00: mouth in [place] the morning. Branch hydrALAZINE 2022-0 Yes [id number] 50mg Take 1 [facility] 50 mg 1-05 tablet by ity of tablet 00:00: mouth [place] 00 every 8 Medical (eight) Branch hours. azelastine 2022-0 Yes [id number] 1{spray Use 1 [facility] 137 mcg 1-05 } [place] in ity of (0.1 %) 00:00: each [place] nasal spray 00 nostril in [facility] the Branch morning and 1 [place] in the evening. Use in each nostril as directed amLODIPine 2022-0 Yes [id number] 10mg Take 1 [facility] 10 mg 1-05 tablet by ity of tablet 00:00: mouth in [place] the morning. Branch apixaban 2022-0 Yes 1358 2.5mg Take 1 [facility] 2.5 mg 1-05 tablet by ity of tablet 00:00: mouth in [place] the morning Branch and 1 tablet in the evening. Indication s: atrial fibrillati on carvediloL 2022-0 Yes [id number] 12.5mg Take 1 [facility] 12.5 mg 1-05 tablet by ity of tablet 00:00: mouth in [place] the morning Branch and 1 tablet in the evening. Take with meals. chlorthalid 2022-0 Yes [id number] 25mg Take 1 [facility] one 25 mg 1-05 tablet by ity o f tablet 00:00: mouth in [place] the morning. Branch furosemide 2022-0 Yes [id number] 20mg Take 1 [facility] 20 mg 1-05 tablet by ity of tablet 00:00: mouth in [place] the morning. Branch losartan 2022-0 Yes [id number] 100mg Take 1 [facility] 100 mg 1-05 tablet by ity of tablet 00:00: mouth in [place] the morning. Branch hydrALAZINE 2022-0 Yes [id number] 50mg Take 1 [facility] 50 mg 1-05 tablet by ity of tablet 00:00: mouth [place] 00 every 8 Medical (eight) Branch hours. azelastine 2022-0 Yes [id number] 1{spray Use 1 [facility] 137 mcg 1-05 } [place] in ity of (0.1 %) 00:00: each [place] nasal spray 00 nostril in [facility] the morning and 1 [place] in the evening. Use in each nostril as directed amLODIPine 2022-0 Yes [id number] 10mg Take 1 [facility] 10 mg 1-05 tablet by ity of tablet 00:00: mouth in [place] the morning. Branch apixaban 2022-0 Yes 1358 2.5mg Take 1 [facility] 2.5 mg 1-05 tablet by ity of tablet 00:00: mouth in [place] the morning Branch and 1 tablet in the evening. Indication s: atrial fibrillati on carvediloL 2022-0 Yes [id number] 12.5mg Take 1 [facility] 12.5 mg 1-05 tablet by ity of tablet 00:00: mouth in [place] [address] the morning Branch and 1 tablet in the evening. Take with meals. chlorthalid 2022-0 Yes [id number] 25mg Take 1 [facility] one 25 mg 1-05 tablet by ity o f tablet 00:00: mouth in [place] the morning. Branch furosemide 2022-0 Yes [id number] 20mg Take 1 [facility] 20 mg 1-05 tablet by ity of tablet 00:00: mouth in [place] the morning. Branch losartan 2022-0 Yes [id number] 100mg Take 1 [facility] 100 mg 1-05 tablet by ity of tablet 00:00: mouth in [place] the morning. Branch hydrALAZINE 2022-0 Yes [id number] 50mg Take 1 [facility] 50 mg 1-05 tablet by ity of tablet 00:00: mouth [place] 00 every 8 Medical (eight) Branch hours. azelastine 2022-0 Yes [id number] 1{spray Use 1 [facility] 137 mcg 1-05 } [place] in ity of (0.1 %) 00:00: each [place] nasal spray 00 nostril in [facility] the morning and 1 [place] in the evening. Use in each nostril as directed amLODIPine 2022-0 Yes [id number] 10mg Take 1 [facility] 10 mg 1-05 tablet by ity of tablet 00:00: mouth in [place] [address] the morning. Branch apixaban 2022-0 Yes 1358 2.5mg Take 1 [facility] 2.5 mg 1-05 tablet by ity of tablet 00:00: mouth in [place] 00 the Medical morning Branch and 1 tablet in the evening. Indication s: atrial fibrillati on carvediloL 2022-0 Yes [id number] 12.5mg Take 1 [facility] 12.5 mg 1-05 tablet by ity of tablet 00:00: mouth in [place] 00 the Medical morning Branch and 1 tablet in the evening. Take with meals. chlorthalid 2022-0 Yes [id number] 25mg Take 1 [facility] one 25 mg 1-05 tablet by ity o f tablet 00:00: mouth in [place] 00 the morning. Branch furosemide 2022-0 Yes [id number] 20mg Take 1 [facility] 20 mg 1-05 tablet by ity of tablet 00:00: mouth in [place] the morning. Branch losartan 2022-0 Yes [id number] 100mg Take 1 [facility] 100 mg 1-05 tablet by ity of tablet 00:00: mouth in [place] the morning. Branch hydrALAZINE 2022-0 Yes [id number] 50mg Take 1 [facility] 50 mg 1-05 tablet by ity of tablet 00:00: mouth [place] 00 every 8 Medical (eight) Branch hours. azelastine 2022-0 Yes [id number] 1{spray Use 1 [facility] 137 mcg 1-05 } [place] in ity of (0.1 %) 00:00: each [place] nasal spray 00 nostril in [facility] the Branch morning and 1 [place] in the evening. Use in each nostril as directed amLODIPine 2022-0 Yes [id number] 10mg Take 1 [facility] 10 mg 1-05 tablet by ity of tablet 00:00: mouth in [place] the morning. Branch apixaban 2022-0 Yes 1358 2.5mg Take 1 [facility] 2.5 mg 1-05 tablet by ity of tablet 00:00: mouth in [place] [address] the morning Branch and 1 tablet in the evening. Indication s: atrial fibrillati on carvediloL 2022-0 Yes [id number] 12.5mg Take 1 [facility] 12.5 mg 1-05 tablet by ity of tablet 00:00: mouth in [place] [address] the morning Branch and 1 tablet in the evening. Take with meals. chlorthalid 2022-0 Yes [id number] 25mg Take 1 [facility] one 25 mg 1-05 tablet by ity o f tablet 00:00: mouth in [place] the Medical morning. Branch furosemide 2022-0 Yes [id number] 20mg Take 1 [facility] 20 mg 1-05 tablet by ity of tablet 00:00: mouth in [place] the morning. Branch losartan 2022-0 Yes [id number] 100mg Take 1 [facility] 100 mg 1-05 tablet by ity of tablet 00:00: mouth in [place] the morning. Branch hydrALAZINE 2022-0 Yes [id number] 50mg Take 1 [facility] 50 mg 1-05 tablet by ity of tablet 00:00: mouth [place] 00 every 8 Medical (eight) Branch hours. azelastine 2022-0 Yes [id number] 1{spray Use 1 [facility] 137 mcg 1-05 } [place] in ity of (0.1 %) 00:00: each [place] nasal spray 00 nostril in [facility] the Branch morning and 1 [place] in the evening. Use in each nostril as directed amLODIPine 2022-0 Yes [id number] 10mg Take 1 [facility] 10 mg 1-05 tablet by ity of tablet 00:00: mouth in [place] the morning. Branch apixaban 2022-0 Yes 1358 2.5mg Take 1 [facility] 2.5 mg 1-05 tablet by ity of tablet 00:00: mouth in [place] the morning Branch and 1 tablet in the evening. Indication s: atrial fibrillati on carvediloL 0 Yes [id number] 12.5mg Take 1 [facility] 12.5 mg 1-05 tablet by ity of tablet 00:00: mouth in [place] the morning Branch and 1 tablet in the evening. Take with meals. chlorthalid 2022-0 Yes [id number] 25mg Take 1 [facility] one 25 mg 1-05 tablet by ity o f tablet 00:00: mouth in [place] the Medical morning. Branch furosemide 2022-0 Yes [id number] 20mg Take 1 [facility] 20 mg 1-05 tablet by ity of tablet 00:00: mouth in [place] the Medical morning. Branch losartan 2022-0 Yes [id number] 100mg Take 1 [facility] 100 mg 1-05 tablet by ity of tablet 00:00: mouth in [place] the morning. Branch hydrALAZINE 2022-0 Yes [id number] 50mg Take 1 [facility] 50 mg 1-05 tablet by ity of tablet 00:00: mouth [place] 00 every 8 Medical (eight) Branch hours. azelastine 2022-0 Yes [id number] 1{spray Use 1 [facility] 137 mcg 1-05 } [place] in ity of (0.1 %) 00:00: each [place] nasal spray 00 nostril in [facility] the Branch morning and 1 [place] in the evening. Use in each nostril as directed amLODIPine 2022-0 Yes [id number] 10mg Take 1 [facility] 10 mg 1-05 tablet by ity of tablet 00:00: mouth in [place] the morning. Branch apixaban 2022-0 Yes 1358 2.5mg Take 1 [facility] 2.5 mg 1-05 tablet by ity of tablet 00:00: mouth in [place] the morning Branch and 1 tablet in the evening. Indication s: atrial fibrillati on carvediloL 2022-0 Yes [id number] 12.5mg Take 1 [facility] 12.5 mg 1-05 tablet by ity of tablet 00:00: mouth in [place] the Medical morning Branch and 1 tablet in the evening. Take with meals. chlorthalid 2022-0 Yes [id number] 25mg Take 1 [facility] one 25 mg 1-05 tablet by ity o f tablet 00:00: mouth in [place] the morning. Branch furosemide 2022-0 Yes [id number] 20mg Take 1 [facility] 20 mg 1-05 tablet by ity of tablet 00:00: mouth in [place] the morning. Branch losartan 2022-0 Yes [id number] 100mg Take 1 [facility] 100 mg 1-05 tablet by ity of tablet 00:00: mouth in [place] the morning. Branch hydrALAZINE 2022-0 Yes [id number] 50mg Take 1 [facility] 50 mg 1-05 tablet by ity of tablet 00:00: mouth [place] 00 every 8 Medical (eight) Branch hours. azelastine 2022-0 Yes [id number] 1{spray Use 1 [facility] 137 mcg 1-05 } [place] in ity of (0.1 %) 00:00: each [place] nasal spray 00 nostril in [facility] the Branch morning and 1 [place] in the evening. Use in each nostril as directed amLODIPine 2022-0 Yes [id number] 10mg Take 1 [facility] 10 mg 1-05 tablet by ity of tablet 00:00: mouth in [place] the morning. Branch apixaban 2022-0 Yes 1358 2.5mg Take 1 [facility] 2.5 mg 1-05 tablet by ity of tablet 00:00: mouth in [place] 00 the morning Branch and 1 tablet in the evening. Indication s: atrial fibrillati on carvediloL 2022-0 Yes [id number] 12.5mg Take 1 [facility] 12.5 mg 1-05 tablet by ity of tablet 00:00: mouth in [place] the morning Branch and 1 tablet in the evening. Take with meals. chlorthalid 2022-0 Yes [id number] 25mg Take 1 [facility] one 25 mg 1-05 tablet by ity o f tablet 00:00: mouth in [place] 00 the morning. Branch furosemide 2022-0 Yes [id number] 20mg Take 1 [facility] 20 mg 1-05 tablet by ity of tablet 00:00: mouth in [place] the morning. Branch losartan 2022-0 Yes [id number] 100mg Take 1 [facility] 100 mg 1-05 tablet by ity of tablet 00:00: mouth in [place] the morning. Branch hydrALAZINE 2022-0 Yes [id number] 50mg Take 1 [facility] 50 mg 1-05 tablet by ity of tablet 00:00: mouth [place] 00 every 8 Medical (eight) Branch hours. azelastine 2022-0 Yes [id number] 1{spray Use 1 [facility] 137 mcg 1-05 } [place] in ity of (0.1 %) 00:00: each [place] nasal spray 00 nostril in [facility] the Branch morning and 1 [place] in the evening. Use in each nostril as directed amLODIPine 2022-0 Yes [id number] 10mg Take 1 [facility] 10 mg 1-05 tablet by ity of tablet 00:00: mouth in [place] the morning. Branch apixaban 2022-0 Yes 1358 2.5mg Take 1 [facility] 2.5 mg 1-05 tablet by ity of tablet 00:00: mouth in [place] the morning Branch and 1 tablet in the evening. Indication s: atrial fibrillati on carvediloL 2022-0 Yes [id number] 12.5mg Take 1 [facility] 12.5 mg 1-05 tablet by ity of tablet 00:00: mouth in [place] the Medical morning Branch and 1 tablet in the evening. Take with meals. chlorthalid 2022-0 Yes [id number] 25mg Take 1 [facility] one 25 mg 1-05 tablet by ity o f tablet 00:00: mouth in [place] the morning. Branch furosemide 2022-0 Yes [id number] 20mg Take 1 [facility] 20 mg 1-05 tablet by ity of tablet 00:00: mouth in [place] the morning. Branch losartan 2022-0 Yes [id number] 100mg Take 1 [facility] 100 mg 1-05 tablet by ity of tablet 00:00: mouth in [place] the morning. Branch hydrALAZINE 2022-0 Yes [id number] 50mg Take 1 [facility] 50 mg 1-05 tablet by ity of tablet 00:00: mouth [place] 00 every 8 Medical (eight) Branch hours. azelastine 2022-0 Yes [id number] 1{spray Use 1 [facility] 137 mcg 1-05 } [place] in ity of (0.1 %) 00:00: each [place] nasal spray 00 nostril in [facility] morning and 1 [place] in the evening. Use in each nostril as directed amLODIPine 2022-0 Yes [id number] 10mg Take 1 [facility] 10 mg 1-05 tablet by ity of tablet 00:00: mouth in [place] the . Branch apixaban 2022-0 Yes 1358 2.5mg Take 1 [facility] 2.5 mg 1-05 tablet by ity of tablet 00:00: mouth in [place] the morning Branch and 1 tablet in the evening. Indication s: atrial fibrillati on carvediloL 2022-0 Yes [id number] 12.5mg Take 1 [facility] 12.5 mg 1-05 tablet by ity of tablet 00:00: mouth in [place] [address] the [facility] morning Branch and 1 tablet in the evening. Take with meals. azelastine 2022-0 Yes [id number] 1{spray Use 1 [facility] 137 mcg 1-05 } [place] in ity of (0.1 %) 00:00: each [place] [facility] [place] in the evening. Use in each nostril as directed amLODIPine 2022-0 Yes [id number] 10mg Take 1 [facility] 10 mg 1-05 tablet by ity of tablet 00:00: mouth in [place] the . Branch apixaban 2022-0 Yes 1358 2.5mg Take 1 [facility] 2.5 mg 1-05 tablet by ity of tablet 00:00: mouth in [place] [address] the [facility] Branch and 1 tablet in the evening. Indication s: atrial fibrillati on carvediloL 2022-0 Yes [id number] 12.5mg Take 1 [facility] 12.5 mg 1-05 tablet by ity of tablet 00:00: mouth in [address] Branch and 1 tablet in the evening. Take with meals. azelastine 2022-0 Yes [id number] 1{spray Use 1 [facility] 137 mcg 1-05 } [place] in ity of (0.1 %) 00:00: each [place] nasal spray 00 nostril in [facility] morning and 1 [place] in the evening. Use in each nostril as directed amLODIPine 2022-0 Yes [id number] 10mg Take 1 [facility] 10 mg 1-05 tablet by ity of tablet 00:00: mouth in [address] . Branch apixaban 2022-0 Yes 1358 2.5mg Take 1 [facility] 2.5 mg 1-05 tablet by ity of tablet 00:00: mouth in [address] Branch and 1 tablet in the evening. Indication s: atrial fibrillati on carvediloL 2022-0 Yes [id number] 12.5mg Take 1 [facility] 12.5 mg 1-05 tablet by ity of tablet 00:00: mouth in [address] and 1 tablet in the evening. Take with meals. azelastine 2022-0 Yes [id number] 1{spray Use 1 [facility] 137 mcg 1-05 } [place] in ity of (0.1 %) 00:00: each [place] nasal spray 00 nostril in [facility] morning and 1 [place] in the evening. Use in each nostril as directed amLODIPine 2022-0 Yes [id number] 10mg Take 1 [facility] 10 mg 1-05 tablet by ity of tablet 00:00: mouth in [place] [address] the [facility] . Branch apixaban 2022-0 Yes 1358 2.5mg Take 1 [facility] 2.5 mg 1-05 tablet by ity of tablet 00:00: mouth in [address] and 1 tablet in the evening. Indication s: atrial fibrillati on carvediloL 2022-0 Yes [id number] 12.5mg Take 1 [facility] 12.5 mg 1-05 tablet by ity of tablet 00:00: mouth in [address] and 1 tablet in the evening. Take with meals. azelastine 2022-0 Yes [id number] 1{spray Use 1 [facility] 137 mcg 1-05 } [place] in ity of (0.1 %) 00:00: each [place] nasal spray 00 nostril in [facility] morning and 1 [place] in the evening. Use in each nostril as directed amLODIPine 2022-0 Yes [id number] 10mg Take 1 [facility] 10 mg 1-05 tablet by ity of tablet 00:00: mouth in [address] . Branch apixaban 2022-0 Yes 1358 2.5mg Take 1 [facility] 2.5 mg 1-05 tablet by ity of tablet 00:00: mouth in [address] and 1 tablet in the evening. Indication s: atrial fibrillati on carvediloL Yes [id number] 12.5mg Take 1 [facility] 12.5 mg 1-05 tablet by ity of tablet 00:00: mouth in [address] and 1 tablet in the evening. Take with meals. azelastine 2022-0 Yes [id number] 1{spray Use 1 [facility] 137 mcg 1-05 } [place] in ity of (0.1 %) 00:00: each [place] nasal spray 00 nostril in [facility] morning and 1 [place] in the evening. Use in each nostril as directed amLODIPine 2022-0 Yes [id number] 10mg Take 1 [facility] 10 mg 1-05 tablet by ity of tablet 00:00: mouth in [place] [address] the [facility] . Branch apixaban 2022-0 Yes 1358 2.5mg Take 1 [facility] 2.5 mg 1-05 tablet by ity of tablet 00:00: mouth in [address] and 1 tablet in the evening. Indication s: atrial fibrillati on carvediloL 2022-0 Yes [id number] 12.5mg Take 1 [facility] 12.5 mg 1-05 tablet by ity of tablet 00:00: mouth in [address] and 1 tablet in the evening. Take with meals. azelastine 2022-0 Yes [id number] 1{spray Use 1 [facility] 137 mcg 1-05 } [place] in ity of (0.1 %) 00:00: each [place] nasal spray 00 nostril in [facility] morning and 1 [place] in the evening. Use in each nostril as directed amLODIPine 2022-0 Yes [id number] 10mg Take 1 [facility] 10 mg 1-05 tablet by ity of tablet 00:00: mouth in [place] [address] the [facility] morning. Branch apixaban 2022-0 Yes 1358 2.5mg Take 1 [facility] 2.5 mg 1-05 tablet by ity of tablet 00:00: mouth in [address] and 1 tablet in the evening. Indication s: atrial fibrillati on carvediloL 2022-0 Yes [id number] 12.5mg Take 1 [facility] 12.5 mg 1-05 tablet by ity of tablet 00:00: mouth in [address] and 1 tablet in the evening. Take with meals. azelastine 2022-0 Yes [id number] 1{spray Use 1 [facility] 137 mcg 1-05 } [place] in ity of (0.1 %) 00:00: each [place] nasal spray 00 nostril in [facility] morning and 1 [place] in the evening. Use in each nostril as directed amLODIPine 2022-0 Yes [id number] 10mg Take 1 [facility] 10 mg 1-05 tablet by ity of tablet 00:00: mouth in [place] [address] the [facility] morning. Branch apixaban 2022-0 Yes 1358 2.5mg Take 1 [facility] 2.5 mg 1-05 tablet by ity of tablet 00:00: mouth in [address] and 1 tablet in the evening. Indication s: atrial fibrillati on carvediloL 2022-0 Yes [id number] 12.5mg Take 1 [facility] 12.5 mg 1-05 tablet by ity of tablet 00:00: mouth in [address] and 1 tablet in the evening. Take with meals. azelastine 2022-0 Yes [id number] 1{spray Use 1 [facility] 137 mcg 1-05 } [place] in ity of (0.1 %) 00:00: each [place] nasal spray 00 nostril in [facility] morning and 1 [place] in the evening. Use in each nostril as directed amLODIPine 2022-0 Yes [id number] 10mg Take 1 [facility] 10 mg 1-05 tablet by ity of tablet 00:00: mouth in [place] [address] the [facility] morning. Branch apixaban 2022-0 Yes 1358 2.5mg Take 1 [facility] 2.5 mg 1-05 tablet by ity of tablet 00:00: mouth in [address] Branch and 1 tablet in the evening. Indication s: atrial fibrillati on carvediloL 2022-0 Yes [id number] 12.5mg Take 1 [facility] 12.5 mg 1-05 tablet by ity of tablet 00:00: mouth in [address] and 1 tablet in the evening. Take with meals. azelastine 2022-0 Yes [id number] 1{spray Use 1 [facility] 137 mcg 1-05 } [place] in ity of (0.1 %) 00:00: each [place] nasal spray 00 nostril in [facility] morning and 1 [place] in the evening. Use in each nostril as directed amLODIPine 2022-0 Yes [id number] 10mg Take 1 [facility] 10 mg 1-05 tablet by ity of tablet 00:00: mouth in [place] [address] the [facility] . Branch apixaban 2022-0 Yes 1358 2.5mg Take 1 [facility] 2.5 mg 1-05 tablet by ity of tablet 00:00: mouth in [address] and 1 tablet in the evening. Indication s: atrial fibrillati on carvediloL 2022-0 Yes [id number] 12.5mg Take 1 [facility] 12.5 mg 1-05 tablet by ity of tablet 00:00: mouth in [address] and 1 tablet in the evening. Take with meals. azelastine 2022-0 Yes [id number] 1{spray Use 1 [facility] 137 mcg 1-05 } [place] in ity of (0.1 %) 00:00: each [place] nasal spray 00 nostril in [facility] morning and 1 [place] in the evening. Use in each nostril as directed amLODIPine 2022-0 Yes [id number] 10mg Take 1 [facility] 10 mg 1-05 tablet by ity of tablet 00:00: mouth in [place] the . Branch apixaban 2022-0 Yes 1358 2.5mg Take 1 [facility] 2.5 mg 1-05 tablet by ity of tablet 00:00: mouth in [address] Branch and 1 tablet in the evening. Indication s: atrial fibrillati on carvediloL 2022-0 Yes [id number] 12.5mg Take 1 [facility] 12.5 mg 1-05 tablet by ity of tablet 00:00: mouth in [address] Branch and 1 tablet in the evening. Take with meals. azelastine 2022-0 Yes [id number] 1{spray Use 1 [facility] 137 mcg 1-05 } [place] in ity of (0.1 %) 00:00: each [place] nasal spray 00 nostril in [facility] morning and 1 [place] in the evening. Use in each nostril as directed amLODIPine 2022-0 Yes [id number] 10mg Take 1 [facility] 10 mg 1-05 tablet by ity of tablet 00:00: mouth in [address] . Branch apixaban 2022-0 Yes 1358 2.5mg Take 1 [facility] 2.5 mg 1-05 tablet by ity of tablet 00:00: mouth in [address] Branch and 1 tablet in the evening. Indication s: atrial fibrillati on carvediloL 2022-0 Yes [id number] 12.5mg Take 1 [facility] 12.5 mg 1-05 tablet by ity of tablet 00:00: mouth in [address] and 1 tablet in the evening. Take with meals. azelastine 2022-0 Yes [id number] 1{spray Use 1 [facility] 137 mcg 1-05 } [place] in ity of (0.1 %) 00:00: each [place] nasal spray 00 nostril in [facility] morning and 1 [place] in the evening. Use in each nostril as directed amLODIPine 3-0 Yes [id number] 10mg Take 1 [facility] 10 mg 1-05 tablet by ity of tablet 00:00: mouth in [place] [address] the [facility] . Branch apixaban 2022-0 Yes 1358 2.5mg Take 1 [facility] 2.5 mg 1-05 tablet by ity of tablet 00:00: mouth in [address] and 1 tablet in the evening. Indication s: atrial fibrillati on carvediloL 2022-0 Yes [id number] 12.5mg Take 1 [facility] 12.5 mg 1-05 tablet by ity of tablet 00:00: mouth in [address] and 1 tablet in the evening. Take with meals. azelastine 2022-0 Yes [id number] 1{spray Use 1 [facility] 137 mcg 1-05 } [place] in ity of (0.1 %) 00:00: each [place] nasal spray 00 nostril in [facility] morning and 1 [place] in the evening. Use in each nostril as directed amLODIPine 2022-0 Yes [id number] 10mg Take 1 [facility] 10 mg 1-05 tablet by ity of tablet 00:00: mouth in [place] [address] the . Branch apixaban 2022-0 Yes 1358 2.5mg Take 1 [facility] 2.5 mg 1-05 tablet by ity of tablet 00:00: mouth in [address] and 1 tablet in the evening. Indication s: atrial fibrillati on carvediloL 2022-0 Yes [id number] 12.5mg Take 1 [facility] 12.5 mg 1-05 tablet by ity of tablet 00:00: mouth in [address] and 1 tablet in the evening. Take with meals. azelastine 2022-0 Yes [id number] 1{spray Use 1 [facility] 137 mcg 1-05 } [place] in ity of (0.1 %) 00:00: each [place] nasal spray 00 nostril in [facility] morning and 1 [place] in the evening. Use in each nostril as directed amLODIPine 3-0 Yes [id number] 10mg Take 1 [facility] 10 mg 1-05 tablet by ity of tablet 00:00: mouth in [place] [address] the [facility] . Branch apixaban 2022-0 Yes 1358 2.5mg Take 1 [facility] 2.5 mg 1-05 tablet by ity of tablet 00:00: mouth in [address] and 1 tablet in the evening. Indication s: atrial fibrillati on carvediloL 2022-0 Yes [id number] 12.5mg Take 1 [facility] 12.5 mg 1-05 tablet by ity of tablet 00:00: mouth in [address] and 1 tablet in the evening. Take with meals. azelastine 2022-0 Yes [id number] 1{spray Use 1 [facility] 137 mcg 1-05 } [place] in ity of (0.1 %) 00:00: each [place] nasal spray 00 nostril in [facility] morning and 1 [place] in the evening. Use in each nostril as directed amLODIPine 2022-0 Yes [id number] 10mg Take 1 [facility] 10 mg 1-05 tablet by ity of tablet 00:00: mouth in [place] [address] the [facility] . Branch apixaban 2022-0 Yes 1358 2.5mg Take 1 [facility] 2.5 mg 1-05 tablet by ity of tablet 00:00: mouth in [address] and 1 tablet in the evening. Indication s: atrial fibrillati on carvediloL 2022-0 Yes [id number] 12.5mg Take 1 [facility] 12.5 mg 1-05 tablet by ity of tablet 00:00: mouth in [address] and 1 tablet in the evening. Take with meals. azelastine 2022-0 Yes [id number] 1{spray Use 1 [facility] 137 mcg 1-05 } [place] in ity of (0.1 %) 00:00: each [place] nasal spray 00 nostril in [facility] morning and 1 [place] in the evening. Use in each nostril as directed amLODIPine 2022-0 Yes [id number] 10mg Take 1 [facility] 10 mg 1-05 tablet by ity of tablet 00:00: mouth in [place] [address] the [facility] . Branch apixaban 2022-0 Yes 1358 2.5mg Take 1 [facility] 2.5 mg 1-05 tablet by ity of tablet 00:00: mouth in [address] and 1 tablet in the evening. Indication s: atrial fibrillati on carvediloL 2022-0 Yes [id number] 12.5mg Take 1 [facility] 12.5 mg 1-05 tablet by ity of tablet 00:00: mouth in [address] and 1 tablet in the evening. Take with meals. azelastine 2023-0 Yes [id number] 1{spray Use 1 [facility] 137 mcg 1-05 } [place] in ity of (0.1 %) 00:00: each [place] nasal spray 00 nostril in [facility] morning and 1 [place] in the evening. Use in each nostril as directed amLODIPine 2022-0 Yes [id number] 10mg Take 1 [facility] 10 mg 1-05 tablet by ity of tablet 00:00: mouth in [place] the [facility] morning. Branch apixaban 2022-0 Yes 1358 2.5mg Take 1 [facility] 2.5 mg 1-05 tablet by ity of tablet 00:00: mouth in [address] Branch and 1 tablet in the evening. Indication s: atrial fibrillati on carvediloL Yes [id number] 12.5mg Take 1 [facility] 12.5 mg 1-05 tablet by ity of tablet 00:00: mouth in [address] and 1 tablet in the evening. Take with meals. azelastine 2022- Yes [id number] 1{spray Use 1 [facility] 137 mcg 1-05 } [place] in ity of (0.1 %) 00:00: each [place] nasal spray 00 nostril in [facility] morning and 1 [place] in the evening. Use in each nostril as directed amLODIPine 2022- Yes [id number] 10mg Take 1 [facility] 10 mg 1-05 tablet by ity of tablet 00:00: mouth in [place] [address] the [facility] morning. Branch apixaban 2022- Yes 1358 2.5mg Take 1 [facility] 2.5 mg 1-05 tablet by ity of tablet 00:00: mouth in [address] Branch and 1 tablet in the evening. Indication s: atrial fibrillati on carvediloL 2022-0 Yes [id number] 12.5mg Take 1 [facility] 12.5 mg 1-05 tablet by ity of tablet 00:00: mouth in [address] and 1 tablet in the evening. Take with meals. azelastine 2022-0 Yes [id number] 1{spray Use 1 [facility] 137 mcg 1-05 } [place] in ity of (0.1 %) 00:00: each [place] nasal spray 00 nostril in [facility] morning and 1 [place] in the evening. Use in each nostril as directed amLODIPine 2022-0 Yes [id number] 10mg Take 1 [facility] 10 mg 1-05 tablet by ity of tablet 00:00: mouth in [place] the . Branch apixaban 2022-0 Yes 1358 2.5mg Take 1 [facility] 2.5 mg 1-05 tablet by ity of tablet 00:00: mouth in [address] Branch and 1 tablet in the evening. Indication s: atrial fibrillati on carvediloL 2022-0 Yes [id number] 12.5mg Take 1 [facility] 12.5 mg 1-05 tablet by ity of tablet 00:00: mouth in [address] Branch and 1 tablet in the evening. Take with meals. azelastine 2022-0 Yes [id number] 1{spray Use 1 [facility] 137 mcg 1-05 } [place] in ity of (0.1 %) 00:00: each [place] nasal spray 00 nostril in [facility] [place] morning and 1 [place] in the evening. Use in each nostril as directed amLODIPine 2022-0 Yes [id number] 10mg Take 1 U nivers 10 mg 1-05 tablet by ity of tablet 00:00: mouth in [place] [address] the . Branch carvediloL 2022-0 Yes [id number] 12.5mg Take 1 [facility] 12.5 mg 1-05 tablet by ity of tablet 00:00: mouth in [address] and 1 tablet in the evening. Take with meals. azelastine 2022-0 Yes [id number] 1{spray Use 1 [facility] 137 mcg 1-05 } [place] in ity of (0.1 %) 00:00: each [place] nasal spray 00 nostril in [facility] morning and 1 [place] in the evening. Use in each nostril as directed amLODIPine 2022-0 Yes [id number] 10mg Take 1 U nivers 10 mg 1-05 tablet by ity of tablet 00:00: mouth in [place] [address] the . Branch carvediloL 2022-0 Yes [id number] 12.5mg Take 1 [facility] 12.5 mg 1-05 tablet by ity of tablet 00:00: mouth in [address] Branch and 1 tablet in the evening. Take with meals. azelastine 2022-0 Yes [id number] 1{spray Use 1 [facility] 137 mcg 1-05 } [place] in ity of (0.1 %) 00:00: each [place] nasal spray 00 nostril in [facility] morning and 1 [place] in the evening. Use in each nostril as directed amLODIPine 2022-0 Yes [id number] 10mg Take 1 U nivers 10 mg 1-05 tablet by ity of tablet 00:00: mouth in [place] the morning. Branch carvediloL 2022-0 Yes [id number] 12.5mg Take 1 [facility] 12.5 mg 1-05 tablet by ity of tablet 00:00: mouth in [address] Branch and 1 tablet in the evening. Take with meals. azelastine 2022-0 Yes [id number] 1{spray Use 1 [facility] 137 mcg 1-05 } [place] in ity of (0.1 %) 00:00: each [place] nasal spray 00 nostril in [facility] morning and 1 [place] in the evening. Use in each nostril as directed amLODIPine 2022-0 Yes [id number] 10mg Take 1 U nivers 10 mg 1-05 tablet by ity of tablet 00:00: mouth in [place] the . Branch carvediloL 2022-0 Yes [id number] 12.5mg Take 1 [facility] 12.5 mg 1-05 tablet by ity of tablet 00:00: mouth in [address] Branch and 1 tablet in the evening. Take with meals. azelastine 2022-0 Yes [id number] 1{spray Use 1 [facility] 137 mcg 1-05 } [place] in ity of (0.1 %) 00:00: each [place] nasal spray 00 nostril in [facility] morning and 1 [place] in the evening. Use in each nostril as directed amLODIPine 3-0 Yes [id number] 10mg Take 1 [facility] nivers 10 mg 1-05 tablet by ity of tablet 00:00: mouth in [place] [address] the . Branch carvediloL 2022-0 Yes [id number] 12.5mg Take 1 [facility] 12.5 mg 1-05 tablet by ity of tablet 00:00: mouth in [address] morning Branch and 1 tablet in the evening. Take with meals. azelastine 2022-0 Yes [id number] 1{spray Use 1 [facility] 137 mcg 1-05 } [place] in ity of (0.1 %) 00:00: each [place] nasal spray 00 nostril in [facility] morning and 1 [place] in the evening. Use in each nostril as directed amLODIPine 3-0 Yes [id number] 10mg Take 1 [facility] nivers 10 mg 1-05 tablet by ity of tablet 00:00: mouth in [place] the morning. Branch carvediloL 2022-0 Yes [id number] 12.5mg Take 1 [facility] 12.5 mg 1-05 tablet by ity of tablet 00:00: mouth in [place] [address] the [facility] Branch and 1 tablet in the evening. Take with meals. azelastine 2022-0 Yes [id number] 1{spray Use 1 [facility] 137 mcg 1-05 } [place] in ity of (0.1 %) 00:00: each [place] nasal spray 00 nostril in [facility] morning and 1 [place] in the evening. Use in each nostril as directed amLODIPine 2022-0 Yes [id number] 10mg Take 1 [facility] nivers 10 mg 1-05 tablet by ity of tablet 00:00: mouth in [place] the . Branch carvediloL 2022-0 Yes [id number] 12.5mg Take 1 [facility] 12.5 mg 1-05 tablet by ity of tablet 00:00: mouth in [address] Branch and 1 tablet in the evening. Take with meals. azelastine 3-0 Yes [id number] 1{spray Use 1 [facility] 137 mcg 1-05 } [place] in ity of (0.1 %) 00:00: each [place] nasal spray 00 nostril in [facility] morning and 1 [place] in the evening. Use in each nostril as directed amLODIPine 3-0 Yes [id number] 10mg Take 1 [facility] nivers 10 mg 1-05 tablet by ity of tablet 00:00: mouth in [place] [address] the morning. Branch carvediloL 3-0 Yes [id number] 12.5mg Take 1 [facility] 12.5 mg 1-05 tablet by ity of tablet 00:00: mouth in [address] morning Branch and 1 tablet in the evening. Take with meals. azelastine 3-0 Yes [id number] 1{spray Use 1 [facility] 137 mcg 1-05 } [place] in ity of (0.1 %) 00:00: each [place] nasal spray 00 nostril in [facility] morning and 1 [place] in the evening. Use in each nostril as directed amLODIPine 2023-0 Yes [id number] 10mg Take 1 U nivers 10 mg 1-05 tablet by ity of tablet 00:00: mouth in [place] the morning. Branch carvediloL 3-0 Yes [id number] 12.5mg Take 1 [facility] 12.5 mg 1-05 tablet by ity of tablet 00:00: mouth in [place] [address] the [facility] morning Branch and 1 tablet in the evening. Take with meals. azelastine 2022-0 Yes [id number] 1{spray Use 1 [facility] 137 mcg 1-05 } [place] in ity of (0.1 %) 00:00: each [place] nasal spray 00 nostril in [facility] morning and 1 [place] in the evening. Use in each nostril as directed amLODIPine 3-0 Yes [id number] 10mg Take 1 U nivers 10 mg 1-05 tablet by ity of tablet 00:00: mouth in [place] the morning. Branch carvediloL 2022-0 Yes [id number] 12.5mg Take 1 [facility] 12.5 mg 1-05 tablet by ity of tablet 00:00: mouth in [address] Branch and 1 tablet in the evening. Take with meals. azelastine 3-0 Yes [id number] 1{spray Use 1 [facility] 137 mcg 1-05 } [place] in ity of (0.1 %) 00:00: each [place] nasal spray 00 nostril in [facility] morning and 1 [place] in the evening. Use in each nostril as directed amLODIPine 3-0 Yes [id number] 10mg Take 1 U nivers 10 mg 1-05 tablet by ity of tablet 00:00: mouth in [place] the morning. Branch carvediloL 2023-0 Yes [id number] 12.5mg Take 1 [facility] 12.5 mg 1-05 tablet by ity of tablet 00:00: mouth in [address] morning Branch and 1 tablet in the evening. Take with meals. azelastine 3-0 Yes [id number] 1{spray Use 1 [facility] 137 mcg 1-05 } [place] in ity of (0.1 %) 00:00: each [place] nasal spray 00 nostril in [facility] morning and 1 [place] in the evening. Use in each nostril as directed amLODIPine 3-0 Yes [id number] 10mg Take 1 U nivers 10 mg 1-05 tablet by ity of tablet 00:00: mouth in [place] the morning. Branch carvediloL 2023-0 Yes [id number] 12.5mg Take 1 [facility] 12.5 mg 1-05 tablet by ity of tablet 00:00: mouth in [address] Branch and 1 tablet in the evening. Take with meals. azelastine 3-0 Yes [id number] 1{spray Use 1 [facility] 137 mcg 1-05 } [place] in ity of (0.1 %) 00:00: each [place] nasal spray 00 nostril in [facility] morning and 1 [place] in the evening. Use in each nostril as directed amLODIPine 3-0 Yes [id number] 10mg Take 1 U nivers 10 mg 1-05 tablet by ity of tablet 00:00: mouth in [place] [address] the . Branch carvediloL 3-0 Yes [id number] 12.5mg Take 1 [facility] 12.5 mg 1-05 tablet by ity of tablet 00:00: mouth in [address] Branch and 1 tablet in the evening. Take with meals. azelastine 3-0 Yes [id number] 1{spray Use 1 [facility] 137 mcg 1-05 } [place] in ity of (0.1 %) 00:00: each [place] nasal spray 00 nostril in [facility] morning and 1 [place] in the evening. Use in each nostril as directed amLODIPine 3-0 Yes [id number] 10mg Take 1 U nivers 10 mg 1-05 tablet by ity of tablet 00:00: mouth in [place] [address] the morning. Branch carvediloL 2023-0 Yes [id number] 12.5mg Take 1 [facility] 12.5 mg 1-05 tablet by ity of tablet 00:00: mouth in [address] morning Branch and 1 tablet in the evening. Take with meals. azelastine 3-0 Yes [id number] 1{spray Use 1 [facility] 137 mcg 1-05 } [place] in ity of (0.1 %) 00:00: each [place] nasal spray 00 nostril in [facility] morning and 1 [place] in the evening. Use in each nostril as directed amLODIPine 3-0 Yes [id number] 10mg Take 1 U nivers 10 mg 1-05 tablet by ity of tablet 00:00: mouth in [place] the morning. Branch carvediloL 3-0 Yes [id number] 12.5mg Take 1 [facility] 12.5 mg 1-05 tablet by ity of tablet 00:00: mouth in [address] morning Branch and 1 tablet in the evening. Take with meals. azelastine 2022-0 Yes [id number] 1{spray Use 1 [facility] 137 mcg 1-05 } [place] in ity of (0.1 %) 00:00: each [place] nasal spray 00 nostril in [facility] morning and 1 [place] in the evening. Use in each nostril as directed amLODIPine 3-0 Yes [id number] 10mg Take 1 U nivers 10 mg 1-05 tablet by ity of tablet 00:00: mouth in [place] [address] the morning. Branch carvediloL 2022-0 Yes [id number] 12.5mg Take 1 [facility] 12.5 mg 1-05 tablet by ity of tablet 00:00: mouth in [address] Branch and 1 tablet in the evening. Take with meals. azelastine 3-0 Yes [id number] 1{spray Use 1 [facility] 137 mcg 1-05 } [place] in ity of (0.1 %) 00:00: each [place] nasal spray 00 nostril in [facility] morning and 1 [place] in the evening. Use in each nostril as directed amLODIPine 3-0 Yes [id number] 10mg Take 1 U nivers 10 mg 1-05 tablet by ity of tablet 00:00: mouth in [place] the morning. Branch carvediloL 3-0 Yes [id number] 12.5mg Take 1 [facility] 12.5 mg 1-05 tablet by ity of tablet 00:00: mouth in [address] morning Branch and 1 tablet in the evening. Take with meals. azelastine 3-0 Yes [id number] 1{spray Use 1 [facility] 137 mcg 1-05 } [place] in ity of (0.1 %) 00:00: each [place] nasal spray 00 nostril in [facility] morning and 1 [place] in the evening. Use in each nostril as directed amLODIPine 3-0 Yes [id number] 10mg Take 1 U nivers 10 mg 1-05 tablet by ity of tablet 00:00: mouth in [place] [address] the morning. Branch carvediloL 3-0 Yes [id number] 12.5mg Take 1 [facility] 12.5 mg 1-05 tablet by ity of tablet 00:00: mouth in [address] Branch and 1 tablet in the evening. Take with meals. azelastine 2022-0 Yes [id number] 1{spray Use 1 [facility] 137 mcg 1-05 } [place] in ity of (0.1 %) 00:00: each [place] nasal spray 00 nostril in [facility] morning and 1 [place] in the evening. Use in each nostril as directed amLODIPine 3-0 Yes [id number] 10mg Take 1 U nivers 10 mg 1-05 tablet by ity of tablet 00:00: mouth in [place] [address] the . Branch carvediloL 2022-0 Yes [id number] 12.5mg Take 1 [facility] 12.5 mg 1-05 tablet by ity of tablet 00:00: mouth in [address] Branch and 1 tablet in the evening. Take with meals. azelastine 3-0 Yes [id number] 1{spray Use 1 [facility] 137 mcg 1-05 } [place] in ity of (0.1 %) 00:00: each [place] nasal spray 00 nostril in [facility] morning and 1 [place] in the evening. Use in each nostril as directed amLODIPine 3-0 Yes [id number] 10mg Take 1 U nivers 10 mg 1-05 tablet by ity of tablet 00:00: mouth in [place] [address] the morning. Branch carvediloL 3-0 Yes [id number] 12.5mg Take 1 [facility] 12.5 mg 1-05 tablet by ity of tablet 00:00: mouth in [address] Branch and 1 tablet in the evening. Take with meals. azelastine 3-0 Yes [id number] 1{spray Use 1 [facility] 137 mcg 1-05 } [place] in ity of (0.1 %) 00:00: each [place] nasal spray 00 nostril in [facility] morning and 1 [place] in the evening. Use in each nostril as directed amLODIPine 3-0 Yes [id number] 10mg Take 1 U nivers 10 mg 1-05 tablet by ity of tablet 00:00: mouth in [place] [address] the [facility] morning. Branch carvediloL 3-0 Yes [id number] 12.5mg Take 1 [facility] 12.5 mg 1-05 tablet by ity of tablet 00:00: mouth in [address] Branch and 1 tablet in the evening. Take with meals. azelastine 3-0 Yes [id number] 1{spray Use 1 [facility] 137 mcg 1-05 } [place] in ity of (0.1 %) 00:00: each [place] nasal spray 00 nostril in [facility] morning and 1 [place] in the evening. Use in each nostril as directed amLODIPine 3-0 Yes [id number] 10mg Take 1 U nivers 10 mg 1-05 tablet by ity of tablet 00:00: mouth in [place] [address] the . Branch carvediloL 2022-0 Yes [id number] 12.5mg Take 1 [facility] 12.5 mg 1-05 tablet by ity of tablet 00:00: mouth in [address] Branch and 1 tablet in the evening. Take with meals. azelastine 3-0 Yes [id number] 1{spray Use 1 [facility] 137 mcg 1-05 } [place] in ity of (0.1 %) 00:00: each [place] nasal spray 00 nostril in [facility] morning and 1 [place] in the evening. Use in each nostril as directed amLODIPine 3-0 Yes [id number] 10mg Take 1 U nivers 10 mg 1-05 tablet by ity of tablet 00:00: mouth in [place] [address] the morning. Branch carvediloL 3-0 Yes [id number] 12.5mg Take 1 [facility] 12.5 mg 1-05 tablet by ity of tablet 00:00: mouth in [address] Branch and 1 tablet in the evening. Take with meals. azelastine 3-0 Yes [id number] 1{spray Use 1 [facility] 137 mcg 1-05 } [place] in ity of (0.1 %) 00:00: each [place] nasal spray 00 nostril in [facility] morning and 1 [place] in the evening. Use in each nostril as directed amLODIPine 2023-0 Yes [id number] 10mg Take 1 U nivers 10 mg 1-05 tablet by ity of tablet 00:00: mouth in [place] the morning. Branch carvediloL 2023-0 Yes [id number] 12.5mg Take 1 [facility] 12.5 mg 1-05 tablet by ity of tablet 00:00: mouth in [address] Branch and 1 tablet in the evening. Take with meals. azelastine 2023-0 Yes [id number] 1{spray Use 1 [facility] 137 mcg 1-05 } [place] in ity of (0.1 %) 00:00: each [place] nasal spray 00 nostril in [facility] morning and 1 [place] in the evening. Use in each nostril as directed amLODIPine 3-0 Yes [id number] 10mg Take 1 U nivers 10 mg 1-05 tablet by ity of tablet 00:00: mouth in [place] the . Branch carvediloL 3-0 Yes [id number] 12.5mg Take 1 [facility] 12.5 mg 1-05 tablet by ity of tablet 00:00: mouth in [address] Branch and 1 tablet in the evening. Take with meals. azelastine 3-0 Yes [id number] 1{spray Use 1 [facility] 137 mcg 1-05 } [place] in ity of (0.1 %) 00:00: each [place] nasal spray 00 nostril in [facility] morning and 1 [place] in the evening. Use in each nostril as directed amLODIPine 3-0 Yes [id number] 10mg Take 1 U nivers 10 mg 1-05 tablet by ity of tablet 00:00: mouth in [place] the morning. Branch carvediloL 2023-0 Yes [id number] 12.5mg Take 1 [facility] 12.5 mg 1-05 tablet by ity of tablet 00:00: mouth in [address] morning Branch and 1 tablet in the evening. Take with meals. azelastine 3-0 Yes [id number] 1{spray Use 1 [facility] 137 mcg 1-05 } [place] in ity of (0.1 %) 00:00: each [place] nasal spray 00 nostril in [facility] morning and 1 [place] in the evening. Use in each nostril as directed amLODIPine 3-0 Yes [id number] 10mg Take 1 U nivers 10 mg 1-05 tablet by ity of tablet 00:00: mouth in [place] the morning. Branch carvediloL 3-0 Yes [id number] 12.5mg Take 1 [facility] 12.5 mg 1-05 tablet by ity of tablet 00:00: mouth in [place] [facility] Branch and 1 tablet in the evening. Take with meals. azelastine 3-0 Yes [id number] 1{spray Use 1 [facility] 137 mcg 1-05 } [place] in ity of (0.1 %) 00:00: each [place] nasal spray 00 nostril in [facility] morning and 1 [place] in the evening. Use in each nostril as directed amLODIPine 3-0 Yes [id number] 10mg Take 1 U nivers 10 mg 1-05 tablet by ity of tablet 00:00: mouth in [place] the . Branch carvediloL 3-0 Yes [id number] 12.5mg Take 1 [facility] 12.5 mg 1-05 tablet by ity of tablet 00:00: mouth in [address] Branch and 1 tablet in the evening. Take with meals. azelastine 3-0 Yes [id number] 1{spray Use 1 [facility] 137 mcg 1-05 } [place] in ity of (0.1 %) 00:00: each [place] nasal spray 00 nostril in [facility] morning and 1 [place] in the evening. Use in each nostril as directed amLODIPine 3-0 Yes [id number] 10mg Take 1 U nivers 10 mg 1-05 tablet by ity of tablet 00:00: mouth in [place] the morning. Branch carvediloL 3-0 Yes [id number] 12.5mg Take 1 [facility] 12.5 mg 1-05 tablet by ity of tablet 00:00: mouth in [address] morning Branch and 1 tablet in the evening. Take with meals. azelastine 2023-0 Yes [id number] 1{spray Use 1 [facility] 137 mcg 1-05 } [place] in ity of (0.1 %) 00:00: each [place] nasal spray 00 nostril in [facility] morning and 1 [place] in the evening. Use in each nostril as directed amLODIPine 3-0 Yes [id number] 10mg Take 1 U nivers 10 mg 1-05 tablet by ity of tablet 00:00: mouth in [place] the [facility] morning. Branch carvediloL 3-0 Yes [id number] 12.5mg Take 1 [facility] 12.5 mg 1-05 tablet by ity of tablet 00:00: mouth in [place] [facility] Branch and 1 tablet in the evening. Take with meals. azelastine 3-0 Yes [id number] 1{spray Use 1 [facility] 137 mcg 1-05 } [place] in ity of (0.1 %) 00:00: each [place] nasal spray 00 nostril in [facility] morning and 1 [place] in the evening. Use in each nostril as directed amLODIPine 3-0 Yes [id number] 10mg Take 1 U nivers 10 mg 1-05 tablet by ity of tablet 00:00: mouth in [place] the . Branch carvediloL 3-0 Yes [id number] 12.5mg Take 1 [facility] 12.5 mg 1-05 tablet by ity of tablet 00:00: mouth in [address] and 1 tablet in the evening. Take with meals. azelastine 3-0 Yes [id number] 1{spray Use 1 [facility] 137 mcg 1-05 } [place] in ity of (0.1 %) 00:00: each [place] nasal spray 00 nostril in [facility] morning and 1 [place] in the evening. Use in each nostril as directed amLODIPine 3-0 Yes [id number] 10mg Take 1 U nivers 10 mg 1-05 tablet by ity of tablet 00:00: mouth in [place] the [facility] . Branch carvediloL 3-0 Yes [id number] 12.5mg Take 1 [facility] 12.5 mg 1-05 tablet by ity of tablet 00:00: mouth in [address] Branch and 1 tablet in the evening. Take with meals. azelastine 3-0 Yes [id number] 1{spray Use 1 [facility] 137 mcg 1-05 } [place] in ity of (0.1 %) 00:00: each [place] nasal spray 00 nostril in [facility] morning and 1 [place] in the evening. Use in each nostril as directed amLODIPine 2022-0 Yes [id number] 10mg Take 1 U nivers 10 mg 1-05 tablet by ity of tablet 00:00: mouth in [place] 00 the . Branch carvediloL 2022-0 Yes [id number] 12.5mg Take 1 [facility] 12.5 mg 1-05 tablet by ity of tablet 00:00: mouth in [place] 00 the Branch and 1 tablet in the evening. Take with meals. azelastine 2022-0 Yes [id number] 1{spray Use 1 [facility] 137 mcg 1-05 } [place] in ity of (0.1 %) 00:00: each [place] nasal spray 00 nostril in [facility] [place] morning and 1 [place] in the evening. Use in each nostril as directed amLODIPine 2022-0 Yes [id number] 10mg Take 1 U nivers 10 mg 1-05 tablet by ity of tablet 00:00: mouth in [place] 00 the . Branch carvediloL 2022-0 Yes [id number] 12.5mg Take 1 [facility] 12.5 mg 1-05 tablet by ity of tablet 00:00: mouth in [place] 00 the [facility] Branch and 1 tablet in the evening. Take with meals. azelastine 2022-0 Yes [id number] 1{spray Use 1 [facility] 137 mcg 1-05 } [place] in ity of (0.1 %) 00:00: each [place] nasal spray 00 nostril in [facility] morning and 1 [place] in the evening. Use in each nostril as directed carvediloL 2022-2022- No [id number] 12.5mg Take 1 [facility] 12.5 mg 1-05 -28 tablet by ity of tablet 00:00: 00:00 mouth in [place] 00 :00 the [facility] and 1 tablet in the evening. Take with meals. apixaban 2022-0 2022- No [id number] 2.5mg Take 1 [facility] rs 2.5 mg 1-05 04-14 tablet by ity of tablet 00:00: 00:00 mouth in [place] 00 :00 the [facility] Branch and 1 tablet in the evening. Indication s: atrial fibrillati on apixaban 2022-0 2022- No [id number] 2.5mg Take 1 [facility] rs 2.5 mg 1-14 tablet by ity of tablet 00:00: 00:00 mouth in [place] 00 :00 the [facility] morning Branch and 1 tablet in the evening. Indication s: atrial fibrillati on chlorthalid 3-0 2022- No [id number] 25mg Take 1 [facility] one 25 mg -10 10-21 tablet by ity of tablet 00:00: 00:00 mouth in [place] 00 :00 the Medical morning. Branch furosemide 2022-0 2022- No [id number] 20mg Take 1 [facility] 20 mg 1-05 -21 tablet by ity of tablet 00:00: 00:00 mouth in [place] 00 :00 the Medical morning. Branch losartan 2022-0 3- No [id number] 100mg Take 1 U nivers 100 mg -10 10-21 tablet by ity of tablet 00:00: 00:00 mouth in [place] 00 :00 the Medical morning. Branch hydrALAZINE 2022-0 3- No [id number] 50mg Take 1 [facility] 50 mg 1-10 10-21 tablet by ity of tablet 00:00: 00:00 mouth [place] 00 :00 every 8 Medical (eight) Branch hours. chlorthalid 2022-0 2022- No [id number] 25mg Take 1 [facility] one 25 mg -10 10-21 tablet by ity of tablet 00:00: 00:00 mouth in [place] 00 :00 the Medical morning. Branch furosemide 2022-0 2022- No [id number] 20mg Take 1 [facility] 20 mg -10 10-21 tablet by ity of tablet 00:00: 00:00 mouth in [place] 00 :00 the Medical morning. Branch losartan 2022-0 2022- No [id number] 100mg Take 1 U nivers 100 mg -05 -21 tablet by ity of tablet 00:00: 00:00 mouth in [place] 00 :00 the Medical morning. Branch hydrALAZINE 3-0 3- No [id number] 50mg Take 1 [facility] 50 mg 1-05 -21 tablet by ity of tablet 00:00: 00:00 mouth [place] 00 :00 every 8 Medical (eight) Branch hours. amLODIPine 2021-3- No [id number] 10mg Take 1 [facility] 10 mg 2-17 -17 tablet by ity of tablet 00:00: 05:59 mouth in [place] 00 :00 the Medical morning Branch for 30 days. chlorthalid 2021-063- No [id number] 25mg Take 1 [facility] one 25 mg 2-17 01-17 tablet by ity of tablet 00:00: 05:59 mouth in [place] 00 :00 the [facility] morning Branch for 30 days. losartan 2021-063- No [id number] 100mg Take 1 U nivers 100 mg 2-17 01-17 tablet by ity of tablet 00:00: 05:59 mouth in [place] 00 :00 the [facility] morning Branch for 30 days. amLODIPine 2021-06- No [id number] 10mg Take 1 [facility] 10 mg 2-17 -17 tablet by ity of tablet 00:00: 05:59 mouth in [place] 00 :00 the [facility] morning Branch for 30 days. chlorthalid 2021-06- No [id number] 25mg Take 1 [facility] one 25 mg 2-17 -17 tablet by ity of tablet 00:00: 05:59 mouth in [place] 00 :00 the [facility] for 30 days. losartan 2021-06- No [id number] 100mg Take 1 U nivers 100 mg 2-17 -17 tablet by ity of tablet 00:00: 05:59 mouth in [place] 00 :00 the [facility] morning [place] for 30 days. amLODIPine 2021-063- No [id number] 10mg Take 1 [facility] 10 mg 2-17 -17 tablet by ity of tablet 00:00: 05:59 mouth in [place] 00 :00 the [facility] morning [place] for 30 days. chlorthalid 2021-063- No [id number] 25mg Take 1 [facility] one 25 mg 2-17 -17 tablet by ity of tablet 00:00: 05:59 mouth in [place] 00 :00 the [facility] morning [place] for 30 days. losartan 2021-063- No [id number] 100mg Take 1 U nivers 100 mg 2-17 01-17 tablet by ity of tablet 00:00: 05:59 mouth in [place] 00 :00 the [facility] morning Branch for 30 days. amLODIPine 2021-063- No [id number] 10mg Take 1 [facility] 10 mg 2-17 01-17 tablet by ity of tablet 00:00: 05:59 mouth in [place] 00 :00 the [facility] morning [place] for 30 days. chlorthalid 2021-06- No [id number] 25mg Take 1 [facility] one 25 mg 2-17 -17 tablet by ity of tablet 00:00: 05:59 mouth in [place] 00 :00 the [facility] morning [place] for 30 days. losartan 2021-06- No [id number] 100mg Take 1 U nivers 100 mg 2-17 -17 tablet by ity of tablet 00:00: 05:59 mouth in [place] 00 :00 the [facility] for 30 days. amLODIPine 2021-06- No [id number] 10mg Take 1 [facility] 10 mg 2-17 -17 tablet by ity of tablet 00:00: 05:59 mouth in [place] 00 :00 the [facility] for 30 days. chlorthalid 2021-06- No [id number] 25mg Take 1 [facility] one 25 mg 2-17 -17 tablet by ity of tablet 00:00: 05:59 mouth in [place] 00 :00 the [facility] for 30 days. losartan 2021-06- No [id number] 100mg Take 1 U nivers 100 mg 2-17 -17 tablet by ity of tablet 00:00: 05:59 mouth in [place] 00 :00 the [facility] for 30 days. amLODIPine 2021-06- No [id number] 10mg Take 1 [facility] 10 mg 2-17 -05 tablet by ity of tablet 00:00: 00:00 mouth in [place] 00 :00 the [facility] for 30 days. chlorthalid 2021-06- No [id number] 25mg Take 1 [facility] one 25 mg 2-17 -05 tablet by ity of tablet 00:00: 00:00 mouth in [place] 00 :00 the [facility] for 30 days. losartan 2021-063- No [id number] 100mg Take 1 U nivers 100 mg 2-17 01-05 tablet by ity of tablet 00:00: 00:00 mouth in [place] 00 :00 the [facility] for 30 days. amLODIPine 2021-06- No [id number] 10mg Take 1 [facility] 10 mg 2-17 01-05 tablet by ity of tablet 00:00: 00:00 mouth in [place] 00 :00 the [facility] for 30 days. chlorthalid 2021-06- No [id number] 25mg Take 1 [facility] one 25 mg 07-27 tablet by ity of tablet 00:00: 00:00 mouth in [place] 00 :00 the Medical morning Branch for 30 days. losartan 2021-06- No [id number] 100mg Take 1 [facility] nivers 100 mg 07-27 tablet by ity of tablet 00:00: 00:00 mouth in [place] 00 :00 the Medical morning Branch for 30 days. acetaminoph 2021-06 Yes 1300mg Take 1,300 [facility] en (TYLENOL 2-16 mg by ity of [place]RITIS 15:30: [place] 650 25 the Medical mg CR morning Branch tablet and 1,300 mg at noon and 1,300 mg in the evening. acetaminoph 2021-06 Yes 1300mg Take 1,300 [facility] en (TYLENOL 2-16 mg by ity of [place]THRITIS 15:30: [place] 650 25 the Medical mg CR morning Branch tablet and 1,300 mg at noon and 1,300 mg in the evening. acetaminoph 2021-06 Yes 1300mg Take 1,300 [facility] en (TYLENOL 2-16 mg by ity of [place]THRITIS 15:30: [place] 650 25 the Medical mg CR morning Branch tablet and 1,300 mg at noon and 1,300 mg in the evening. acetaminoph 2021-06 Yes 1300mg Take 1,300 [facility] en (TYLENOL 2-16 mg by ity of [place]THRITIS 15:30: [place] 650 25 the Medical mg CR morning Branch tablet and 1,300 mg at noon and 1,300 mg in the evening. acetaminoph 2021-06 Yes 1300mg Take 1,300 [facility] en (TYLENOL 2-16 mg by ity of ARTHRITIS 15:30: [place] 650 25 the Medical mg CR morning Branch tablet and 1,300 mg at noon and 1,300 mg in the evening. acetaminoph 2021-06 Yes 1300mg Take 1,300 [facility] en (TYLENOL 2-16 mg by ity of [place]THRITIS 15:30: [place] 650 25 the Medical mg CR morning Branch tablet and 1,300 mg at noon and 1,300 mg in the evening. acetaminoph 2021-06 Yes 1300mg Take 1,300 [facility] en (TYLENOL 2-16 mg by ity of ARTHRITIS 15:30: [place] 650 25 the Medical mg CR morning Branch tablet and 1,300 mg at noon and 1,300 mg in the evening. acetaminoph 2021-06 Yes 1300mg Take 1,300 [facility] en (TYLENOL 2-16 mg by ity of ARTHRITIS 15:30: [place] 650 25 the Medical mg CR morning Branch tablet and 1,300 mg at noon and 1,300 mg in the evening. acetaminoph 2021-06 Yes 1300mg Take 1,300 [facility] en (TYLENOL 2-16 mg by ity of [place]THRITIS 15:30: [place] 650 25 the Medical mg CR morning Branch tablet and 1,300 mg at noon and 1,300 mg in the evening. acetaminoph 2021-06 Yes 1300mg Take 1,300 [facility] en (TYLENOL 2-16 mg by ity of [place]THRITIS 15:30: [place] 650 25 the Medical mg CR morning Branch tablet and 1,300 mg at noon and 1,300 mg in the evening. acetaminoph 2021-06 Yes 1300mg Take 1,300 [facility] en (TYLENOL 2-16 mg by ity of [place]THRITIS 15:30: [place] 650 25 the Medical mg CR morning Branch tablet and 1,300 mg at noon and 1,300 mg in the evening. acetaminoph 2021-06 Yes 1300mg Take 1,300 [facility] en (TYLENOL 2-16 mg by ity of [place]THRITIS 15:30: [place] 650 25 the Medical mg CR morning Branch tablet and 1,300 mg at noon and 1,300 mg in the evening. acetaminoph 2021-06 Yes 1300mg Take 1,300 [facility] en (TYLENOL 2-16 mg by ity of [place]THRITIS 15:30: [place] 650 25 the Medical mg CR morning Branch tablet and 1,300 mg at noon and 1,300 mg in the evening. acetaminoph 2021-06 Yes 1300mg Take 1,300 [facility] en (TYLENOL 2-16 mg by ity of ARTHRITIS 15:30: [place] 650 25 the Medical mg CR morning Branch tablet and 1,300 mg at noon and 1,300 mg in the evening. acetaminoph 2021-06 Yes 1300mg Take 1,300 [facility] en (TYLENOL 2-16 mg by ity of ARTHRITIS 15:30: [place] 650 25 the Medical mg CR morning Branch tablet and 1,300 mg at noon and 1,300 mg in the evening. acetaminoph 2021-06 Yes 1300mg Take 1,300 [facility] en (TYLENOL 2-16 mg by ity of ARTHRITIS 15:30: [place] 650 25 the Medical mg CR morning Branch tablet and 1,300 mg at noon and 1,300 mg in the evening. acetaminoph 2021-06 Yes 1300mg Take 1,300 [facility] en (TYLENOL 2-16 mg by ity of ARTHRITIS 15:30: [place] 650 25 the Medical mg CR morning Branch tablet and 1,300 mg at noon and 1,300 mg in the evening. acetaminoph 2021-06 Yes 1300mg Take 1,300 [facility] en (TYLENOL 2-16 mg by ity of ARTHRITIS 15:30: [place] 650 25 the Medical mg CR morning Branch tablet and 1,300 mg at noon and 1,300 mg in the evening. acetaminoph 2021-06 Yes 1300mg Take 1,300 [facility] en (TYLENOL 2-16 mg by ity of ARTHRITIS 15:30: [place] 650 25 the Medical mg CR morning Branch tablet and 1,300 mg at noon and 1,300 mg in the evening. atorvastati 2021-06 Yes 40mg 40 mg, Univ ers n (LIPITOR) 2-16 Oral, QHS, it y of tablet 40 03:00: First dose [place] mg 00 on [facility] 05/24/22 Branch at 2100, Until Discontinu ed, Routine hydrALAZINE 2021-06 Yes 50mg 50 mg, Univ ers (APRESOLINE 2-16 Oral, Q8H, it y of ) tablet 50 02:15: First dose [place] mg 00 on [facility] 05/24/22 Branch at 2015, Until Discontinu ed, Routine hydralAZINE 2021-06 Yes 10mg 10 mg, Univ ers (APRESOLINE 2-16 Slow IV ity o f ) injection 02:04: Push, [place] 10 mg 27 Q4HPRN, Medical Starting Branch on [place] 05/24/22 at 2004, Until Discontinu ed, STAT, DBP=>100; SBP=>180 carvediloL 2021-06- No [id number] 12.5mg Take 1 [facility] 12.5 mg 2-16 01-16 tablet by ity of tablet 00:00: 05:59 mouth in [place] 00 :00 the Medical morning Branch and 1 tablet in the evening. Take with meals. Do all this for 30 days. hydrALAZINE 2021-06- No [id number] 50mg Take 1 [facility] 50 mg 2-16 01-16 tablet by ity of tablet 00:00: 05:59 mouth [place] 00 :00 every 8 Medical (eight) Branch hours for 30 days. furosemide 2021-06- No [id number] 20mg Take 1 [facility] 20 mg 2-16 01-16 tablet by ity of tablet 00:00: 05:59 mouth in [place] 00 :00 the [facility] morning Branch for 30 days. carvediloL 2021-06- No [id number] 12.5mg Take 1 [facility] 12.5 mg 2-16 01-16 tablet by ity of tablet 00:00: 05:59 mouth in [place] 00 :00 the [facility] morning Branch and 1 tablet in the evening. Take with meals. Do all this for 30 days. hydrALAZINE 2021-06- No [id number] 50mg Take 1 [facility] 50 mg 2-16 01-16 tablet by ity of tablet 00:00: 05:59 mouth [place] 00 :00 every 8 [facility] ([facility]) Branch hours for 30 days. furosemide 2021-06- No [id number] 20mg Take 1 [facility] 20 mg 2-16 01-16 tablet by ity of tablet 00:00: 05:59 mouth in [place] 00 :00 the [facility] morning Branch for 30 days. carvediloL 2021-06- No [id number] 12.5mg Take 1 [facility] 12.5 mg 2-16 01-16 tablet by ity of tablet 00:00: 05:59 mouth in [place] 00 :00 the [facility] morning Branch and 1 tablet in the evening. Take with meals. Do all this for 30 days. hydrALAZINE 2021-06- No [id number] 50mg Take 1 [facility] 50 mg 2-16 01-16 tablet by ity of tablet 00:00: 05:59 mouth [place] 00 :00 every 8 Medical ([facility]) Branch hours for 30 days. furosemide 2021-06- No [id number] 20mg Take 1 [facility] 20 mg 2-16 -16 tablet by ity of tablet 00:00: 05:59 mouth in [place] 00 :00 the [facility] Branch for 30 days. carvediloL 2021-06- No [id number] 12.5mg Take 1 [facility] 12.5 mg 2-16 -16 tablet by ity of tablet 00:00: 05:59 mouth in [place] 00 :00 the [facility] morning Branch and 1 tablet in the evening. Take with meals. Do all this for 30 days. hydrALAZINE 2021-06- No [id number] 50mg Take 1 [facility] 50 mg 2-16 -16 tablet by ity of tablet 00:00: 05:59 mouth [place] 00 :00 every 8 [facility] ([facility]) Branch hours for 30 days. furosemide 2021-06- No [id number] 20mg Take 1 [facility] 20 mg 2-16 -16 tablet by ity of tablet 00:00: 05:59 mouth in [place] 00 :00 the [facility] Branch for 30 days. carvediloL 2021-06- No [id number] 12.5mg Take 1 [facility] 12.5 mg 2-16 -16 tablet by ity of tablet 00:00: 05:59 mouth in [place] 00 :00 the [facility] Branch and 1 tablet in the evening. Take with meals. Do all this for 30 days. hydrALAZINE 2021-06- No [id number] 50mg Take 1 [facility] 50 mg 2-16 -16 tablet by ity of tablet 00:00: 05:59 mouth [place] 00 :00 every 8 [facility] ([facility]) Branch hours for 30 days. furosemide 2021-063- No [id number] 20mg Take 1 [facility] 20 mg 2-16 -16 tablet by ity of tablet 00:00: 05:59 mouth in [place] 00 :00 the [facility] Branch for 30 days. carvediloL 2021-06- No [id number] 12.5mg Take 1 [facility] 12.5 mg 2-16 -05 tablet by ity of tablet 00:00: 00:00 mouth in [place] 00 :00 the Medical morning Branch and 1 tablet in the evening. Take with meals. Do all this for 30 days. hydrALAZINE 2021-06- No [id number] 50mg Take 1 [facility] 50 mg 2-16 -05 tablet by ity of tablet 00:00: 00:00 mouth [place] 00 :00 every 8 Medical (eight) Branch hours for 30 days. furosemide 2021-06- No [id number] 20mg Take 1 [facility] 20 mg 2-16 -05 tablet by ity of tablet 00:00: 00:00 mouth in [place] 00 :00 the [facility] Branch for 30 days. carvediloL 2021-06- No [id number] 12.5mg Take 1 [facility] 12.5 mg -16 - tablet by ity of tablet 00:00: 00:00 mouth in [place] 00 :00 the [facility] Branch and 1 tablet in the evening. Take with meals. Do all this for 30 days. hydrALAZINE 2021-06- No [id number] 50mg Take 1 [facility] 50 mg 2-06-14 tablet by ity of tablet 00:00: 00:00 mouth [place] 00 :00 every 8 Medical (eight) [place] hours for 30 days. furosemide 2021-06- No [id number] 20mg Take 1 [facility] 20 mg -16 05 tablet by ity of tablet 00:00: 00:00 mouth in [place] 00 :00 the [facility] Branch for 30 days. chlorthalid 2021-06 Yes 25mg 25 mg, Univ ers one 2-15 Oral, ity of (HYGROTON) 16:15: DAILY, [place] tablet 25 00 First dose Medi alise mg on [facility] Branch 05/24/22 at 1015, Until Discontinu ed, Routine losartan 2021-06 Yes 100mg 100 mg, Unive rs (COZAAR) 2-15 Oral, ity of tablet 100 15:00: DAILY, [place] mg 00 First dose Medical on [facility] 05/24/22 at 0900, Until Discontinu ed, Routine amLODIPine 2021-06 Yes 10mg 10 mg, Unive rs (NORVASC) 2-15 Oral, ity of tablet 10 15:00: DAILY, [place] mg 00 First dose Medical on [facility] 05/24/22 at 0900, Until Discontinu ed, Routine apixaban 2021-06 Yes 2.5mg 2.5 mg, Unive rs (ELIQUIS) 2-15 Oral, BID, ity of tablet 2.5 14:00: First dose [place] mg 00 (after Medical last Branch modificati on) on [facility] 05/24/22 at 0800, Until Discontinu ed, Routine
Indicatio ns: Non-Valvul ar Atrial Fibrillati on docusate 2021-06 Yes 100mg 100 mg, Unive rs (COLACE) 2-15 Oral, BID, ity o f capsule 100 14:00: First dose [place] mg 00 on [facility] 05/24/22 Branch at 0800, Until Discontinu ed, Routine olmesartan 2021-06 No 40mg 40 mg, Univ ers (BENICAR) 2-15 12-15 Oral, QAM ity of tablet 40 14:00: 13:51 WITH [place] mg 00 :41 BREAKFAST, Medical First dose Branch on [facility] 05/24/22 at 0800, Until Discontinu ed, Routine ondansetron 2021-06 Yes 4mg 4 mg, Slow Univers (ZOFRAN 2-15 IV Push, ity of (PF)) 11:57: Q6HPRN, [place] injection 4 04 Starting Medi alise mg on [facility] Branch 05/24/22 at 0557, Until Discontinu ed, Routine, Nausea and Vomiting (N/V) apixaban 2021-06 No 5mg 5 mg, Univers (ELIQUIS) 2-15 12-15 Oral, BID, ity of tablet 5 mg 08:30: 12:06 First dose [place] 00 :20 on [facility] 05/24/22 Branch at 0230, Until Discontinu ed, Routine
Indicatio ns: Non-Valvul ar Atrial Fibrillati on fluticasone 2021-06 Yes 1{spray 1 [place], Univers propionate 2-15 } Nasal, ity of 50 07:45: BID, First [place] mcg/actuati 00 dose on Medic al on nasal [facility] Branch spray 1 05/24/22 [place] at 0145, Until Discontinu ed, Routine cetirizine 2021-06 Yes 5mg 5 mg, Univer s (ZYRTEC) 2-15 Oral, ity of tablet 5 mg 07:30: DAILY[place] 00 First dose Medical on [facility] 05/24/22 at 0130, Until Discontinu ed, Routine carvediloL 2021-06 Yes 12.5mg 12.5 mg, U nivers (COREG) 2-15 Oral, BID ity of tablet 12.5 07:30: MEALS, [place] mg 00 First dose Medical on [facility] 05/24/22 at 0130, Until Discontinu ed, Routine acetaminoph 2021-06 Yes 650mg 650 mg, Un miracle en 2-15 Oral, ity of (TYLENOL) 07:16: Q8HPRN, [place] tablet 650 36 Starting Medic al mg on [facility] 05/24/22 at 0116, Until Discontinu ed, Routine, Pain (scale 1-3) zolpidem 2021-06 Yes 5mg 5 mg, Univers (AMBIEN) 2-15 Oral, ity of tablet 5 mg 07:16: QHSPRN, [place] 29 Starting Medical on [facility] 05/24/22 at 0116, Until Discontinu ed, Routine, Insomnia hydralAZINE 2021-06- No 10mg 10 mg, Uni vers (APRESOLINE 2-15 12-15 Slow IV ity of ) injection 05:30: 04:47 [place] 10 mg 00 :00 ONCE, 1 Medical dose, On Branch [facility] 05/23/22 at 2330, STAT cloNIDine 2021-06- No .1mg 0.1 mg, Univ ers (CATAPRES) 2-15 12-15 Oral, ity of tablet 0.1 00:15: 00:19 ONCE, 1 [place] mg 00 :00 dose, On Medical [facility] 05/23/22 at 1815, STAT olmesartan 2021-06 Yes [id number] 40mg Take 1 U nivers 40 mg 2-12 tablet by ity of tablet 00:00: mouth in [place] [address] the Medical morning. Branch olmesartan 2021-06 Yes [id number] 40mg Take 1 U nivers 40 mg 2-12 tablet by ity of tablet 00:00: mouth in [place] [address] the Medical morning. Branch olmesartan 2021-06 Yes 40mg Take 1 Unive rs 40 mg 2-12 tablet by ity of tablet 00:00: mouth in [place] 00 the Medical morning. Branch olmesartan 2021-06 Yes 40mg Take 1 Unive rs 40 mg 2-12 tablet by ity of tablet 00:00: mouth in [place] 00 the Medical morning. Branch olmesartan 2021-06 Yes 40mg Take 1 Unive rs 40 mg 2-12 tablet by ity of tablet 00:00: mouth in [place] 00 the Medical morning. Branch olmesartan 2021-06 Yes 40mg Take 1 Unive rs 40 mg 2-12 tablet by ity of tablet 00:00: mouth in [place] 00 the Medical morning. Branch olmesartan 2021-06 Yes 40mg Take 1 Unive rs 40 mg 2-12 tablet by ity of tablet 00:00: mouth in [place] 00 the Medical morning. Branch olmesartan 2021-06 Yes 40mg Take 1 Unive rs 40 mg 2-12 tablet by ity of tablet 00:00: mouth in [place] 00 the Medical morning. Branch olmesartan 2021-06- No 40mg Take 1 Univ ers 40 mg 2-12 12-16 tablet by ity of tablet 00:00: 00:00 mouth in [place] 00 :00 the Medical morning. Branch carvediloL 2021-06- No 6.25mg 6.25 mg, Univers (COREG) 07-20 Oral, ONCE ity o f tablet 6.25 00:00: 23:18 NOW, 1 [place] mg 00 :00 dose, On Medical Fri [place] 05/18/22 at 1800, Routine cloNIDine 2021-06- No .1mg 0.1 mg, Univ ers (CATAPRES) 07-19 Oral, ity of tablet 0.1 22:30: 22:20 ONCE, 1 [place] mg 00 :00 dose, On Medical Fri [place] 05/18/22 at 1630, STAT cloNIDine 2021-06- No .1mg 0.1 mg, Univ ers (CATAPRES) 07-19 Oral, ity of tablet 0.1 20:30: 20:38 ONCE, 1 [place] mg 00 :00 dose, On Medical Fri [place] 05/18/22 at 1430, STAT cloNIDine 2021-06 Yes [id number] .1mg Take 1 Un miracle 0.1 mg -09 tablet by ity of tablet 00:00: mouth [place] 00 every 4 Medical (four) Branch hours as needed for Other (SBP > 180). cloNIDine 2021-06 Yes [id number] .1mg Take 1 Un miracle 0.1 mg 2-09 tablet by ity of tablet 00:00: mouth [place] 00 every 4 Medical (four) Branch hours as needed for Other (SBP > 180). cloNIDine 2021-06 Yes [id number] .1mg Take 1 Un miracle 0.1 mg 2-09 tablet by ity of tablet 00:00: mouth [place] 00 every 4 Medical (four) Branch hours as needed for Other (SBP > 180). cloNIDine 2021-06 Yes [id number] .1mg Take 1 Un miracle 0.1 mg 2-09 tablet by ity of tablet 00:00: mouth [place] 00 every 4 Medical (four) Branch hours as needed for Other (SBP > 180). cloNIDine 2021-06 Yes [id number] .1mg Take 1 Un miracle 0.1 mg 2-09 tablet by ity of tablet 00:00: mouth [place] 00 every 4 Medical (four) Branch hours as needed for Other (SBP > 180). cloNIDine 2021-06 Yes [id number] .1mg Take 1 Un miracle 0.1 mg 2-09 tablet by ity of tablet 00:00: mouth [place] 00 every 4 Medical (four) Branch hours as needed for Other (SBP > 180). cloNIDine 2021-06 Yes [id number] .1mg Take 1 Un miracle 0.1 mg 2-09 tablet by ity of tablet 00:00: mouth [place] 00 every 4 Medical (four) Branch hours as needed for Other (SBP > 180). cloNIDine 2021-06 Yes [id number] .1mg Take 1 Un miracle 0.1 mg 2-09 tablet by ity of tablet 00:00: mouth [place] 00 every 4 Medical (four) Branch hours as needed for Other (SBP > 180). cloNIDine 2021-06 Yes [id number] .1mg Take 1 Un miracle 0.1 mg 2-09 tablet by ity of tablet 00:00: mouth [place] 00 every 4 Medical (four) Branch hours as needed for Other (SBP > 180). cloNIDine 2021-06 No [id number] .1mg Take 1 U nivers 0.1 mg 2-09 12-16 tablet by ity of tablet 00:00: 00:00 mouth [place] 00 :00 every 4 Medical (four) Branch hours as needed for Other (SBP > 180). pantoprazol 2021-06 Yes 40mg 40 mg, Univ ers e 07-17 Oral, ity of (PROTONIX) 15:00: DAILY, [place] EC tablet 00 First dose Medi alise 40 mg on Sat Branch 05/16/22 at 0900, Until Discontinu ed, Routine pantoprazol 2021-06 No 40mg 40 mg, Uni vers e 07-17 Oral, ity of (PROTONIX) 15:00: 02:06 DAILY, [place] EC tablet 00 :37 First dose Medi alise 40 mg on Sat Branch 05/16/22 at 0900, Until Discontinu ed, Routine pantoprazol 2021-06 No [id number] 40mg Take 1 Univers e 40 mg EC 07-17 tablet by ity of tablet 00:00: 05:59 mouth in [place] 00 :00 the Medical morning Branch for 90 days. sennosides- 2021-06- No [id number] 1{tbl} Take 1 Univers docusate 07-17 tablet by ity o f sodium 00:00: 05:59 mouth in [place] 8.6-50 mg 00 :00 the Medical per tablet morning Branch for 90 days. pantoprazol 2021-06 No [id number] 40mg Take 1 Univers e 40 mg EC 07-17 tablet by ity of tablet 00:00: 05:59 mouth in [place] 00 :00 the Medical morning Branch for 90 days. sennosides- 2021-06- No [id number] 1{tbl} Take 1 Univers docusate 07-17 tablet by ity o f sodium 00:00: 05:59 mouth in [place] 8.6-50 mg 00 :00 the Medical per tablet morning Branch for 90 days. pantoprazol 2021-06 No [id number] 40mg Take 1 Univers e 40 mg EC 07-17 tablet by ity of tablet 00:00: 05:59 mouth in [place] 00 :00 the Medical morning Branch for 90 days. sennosides- 2021-06- No [id number] 1{tbl} Take 1 Univers docusate 07-17-08 tablet by ity o f sodium 00:00: 05:59 mouth in [place] 8.6-50 mg 00 :00 the Medical per tablet morning Branch for 90 days. pantoprazol 2021-06 No [id number] 40mg Take 1 Univers e 40 mg EC 07-1708 tablet by ity of tablet 00:00: 05:59 mouth in [place] 00 :00 the Medical morning Branch for 90 days. sennosides- 2021-06- No [id number] 1{tbl} Take 1 Univers docusate 07-17-08 tablet by ity o f sodium 00:00: 05:59 mouth in [place] 8.6-50 mg 00 :00 the Medical per tablet morning Branch for 90 days. pantoprazol 2021-06 No [id number] 40mg Take 1 Univers e 40 mg EC 07-17 tablet by ity of tablet 00:00: 05:59 mouth in [place] 00 :00 the Medical morning Branch for 90 days. sennosides- 2021-06- No [id number] 1{tbl} Take 1 Univers docusate 07-17 tablet by ity o f sodium 00:00: 05:59 mouth in [place] 8.6-50 mg 00 :00 the Medical per tablet morning Branch for 90 days. pantoprazol 2021-06 No [id number] 40mg Take 1 Univers e 40 mg EC 07-17 tablet by ity of tablet 00:00: 05:59 mouth in [place] 00 :00 the Medical morning Branch for 90 days. sennosides- 2021-06- No [id number] 1{tbl} Take 1 Univers docusate 07-17-08 tablet by ity o f sodium 00:00: 05:59 mouth in [place] 8.6-50 mg 00 :00 the Medical per tablet morning Branch for 90 days. pantoprazol 2021-06 No [id number] 40mg Take 1 Univers e 40 mg EC 07-1708 tablet by ity of tablet 00:00: 05:59 mouth in [place] 00 :00 the Medical morning Branch for 90 days. sennosides- 2021-06- No [id number] 1{tbl} Take 1 Univers docusate 07-17-08 tablet by ity o f sodium 00:00: 05:59 mouth in [place] 8.6-50 mg 00 :00 the Medical per tablet morning Branch for 90 days. pantoprazol 2021-06 No [id number] 40mg Take 1 Univers e 40 mg EC 07-17- tablet by ity of tablet 00:00: 05:59 mouth in [place] 00 :00 the Medical morning Branch for 90 days. sennosides- 2021-06- No [id number] 1{tbl} Take 1 Univers docusate 07-17-08 tablet by ity o f sodium 00:00: 05:59 mouth in [place] 8.6-50 mg 00 :00 the Medical per tablet morning Branch for 90 days. pantoprazol 2021-06 No [id number] 40mg Take 1 Univers e 40 mg EC 07-17 tablet by ity of tablet 00:00: 05:59 mouth in [place] 00 :00 the Medical morning Branch for 90 days. sennosides- 2021-06- No [id number] 1{tbl} Take 1 Univers docusate 07-17- tablet by ity o f sodium 00:00: 05:59 mouth in [place] 8.6-50 mg 00 :00 the Medical per tablet morning Branch for 90 days. pantoprazol 2021-06 No [id number] 40mg Take 1 Univers e 40 mg EC 07-17 tablet by ity of tablet 00:00: 05:59 mouth in [place] 00 :00 the Medical morning Branch for 90 days. sennosides- 2021-06- No [id number] 1{tbl} Take 1 Univers docusate 07-17-08 tablet by ity o f sodium 00:00: 05:59 mouth in [place] 8.6-50 mg 00 :00 the Medical per tablet morning Branch for 90 days. pantoprazol 2021-06 No [id number] 40mg Take 1 Univers e 40 mg EC 07-17-08 tablet by ity of tablet 00:00: 05:59 mouth in [place] 00 :00 the Medical morning Branch for 90 days. sennosides- 2021-06- No [id number] 1{tbl} Take 1 Univers docusate 2-12 10-08 tablet by ity o f sodium 00:00: 05:59 mouth in [place] 8.6-50 mg 00 :00 the Medical per tablet morning Branch for 90 days. pantoprazol 2021-06 No [id number] 40mg Take 1 Univers e 40 mg EC 07-17-08 tablet by ity of tablet 00:00: 05:59 mouth in [place] 00 :00 the Medical morning Branch for 90 days. sennosides- 2021-06- No [id number] 1{tbl} Take 1 Univers docusate 2-08 tablet by ity o f sodium 00:00: 05:59 mouth in [place] 8.6-50 mg 00 :00 the Medical per tablet morning Branch for 90 days. pantoprazol 2021-06 No [id number] 40mg Take 1 Univers e 40 mg EC 07-17- tablet by ity of tablet 00:00: 05:59 mouth in [place] 00 :00 the Medical morning Branch for 90 days. sennosides- 2021-06- No [id number] 1{tbl} Take 1 Univers docusate 07-17-08 tablet by ity o f sodium 00:00: 05:59 mouth in [place] 8.6-50 mg 00 :00 the Medical per tablet morning Branch for 90 days. pantoprazol 2021-06 No [id number] 40mg Take 1 Univers e 40 mg EC 07-17- tablet by ity of tablet 00:00: 05:59 mouth in [place] 00 :00 the Medical morning Branch for 90 days. sennosides- 2021-06- No [id number] 1{tbl} Take 1 Univers docusate 2-08 tablet by ity o f sodium 00:00: 05:59 mouth in [place] 8.6-50 mg 00 :00 the Medical per tablet morning Branch for 90 days. pantoprazol 2021-06 No [id number] 40mg Take 1 Univers e 40 mg EC 07-17-08 tablet by ity of tablet 00:00: 05:59 mouth in [place] 00 :00 the Medical morning Branch for 90 days. sennosides- 2021-06- No [id number] 1{tbl} Take 1 Univers docusate 2-12 10-08 tablet by ity o f sodium 00:00: 05:59 mouth in [place] 8.6-50 mg 00 :00 the Medical per tablet morning Branch for 90 days. pantoprazol 2021-06 No [id number] 40mg Take 1 Univers e 40 mg EC 07-17-08 tablet by ity of tablet 00:00: 05:59 mouth in [place] 00 :00 the Medical morning Branch for 90 days. sennosides- 2021-06- No [id number] 1{tbl} Take 1 Univers docusate 2-08 tablet by ity o f sodium 00:00: 05:59 mouth in [place] 8.6-50 mg 00 :00 the Medical per tablet morning Branch for 90 days. pantoprazol 2021-06 No [id number] 40mg Take 1 Univers e 40 mg EC 07-17- tablet by ity of tablet 00:00: 05:59 mouth in [place] 00 :00 the Medical morning Branch for 90 days. sennosides- 2021-06- No [id number] 1{tbl} Take 1 Univers docusate 07-17-08 tablet by ity o f sodium 00:00: 05:59 mouth in [place] 8.6-50 mg 00 :00 the Medical per tablet morning Branch for 90 days. pantoprazol 2021-06- No [id number] 40mg Take 1 Univers e 40 mg EC 07-17- tablet by ity of tablet 00:00: 05:59 mouth in [place] 00 :00 the Medical morning Branch for 90 days. sennosides- 2021-06- No [id number] 1{tbl} Take 1 Univers docusate 2-08 tablet by ity o f sodium 00:00: 05:59 mouth in [place] 8.6-50 mg 00 :00 the Medical per tablet morning Branch for 90 days. pantoprazol 2021-06 No [id number] 40mg Take 1 Univers e 40 mg EC 07-17-08 tablet by ity of tablet 00:00: 05:59 mouth in [place] 00 :00 the Medical morning Branch for 90 days. sennosides- 2021-06- No [id number] 1{tbl} Take 1 Univers docusate 2-12 10-08 tablet by ity o f sodium 00:00: 05:59 mouth in [place] 8.6-50 mg 00 :00 the Medical per tablet morning Branch for 90 days. pantoprazol 2021-06- No [id number] 40mg Take 1 Univers e 40 mg EC 07-17-08 tablet by ity of tablet 00:00: 05:59 mouth in [place] 00 :00 the Medical morning Branch for 90 days. sennosides- 2021-06- No [id number] 1{tbl} Take 1 Univers docusate 2-08 tablet by ity o f sodium 00:00: 05:59 mouth in [place] 8.6-50 mg 00 :00 the Medical per tablet morning Branch for 90 days. pantoprazol 2021-06- No [id number] 40mg Take 1 Univers e 40 mg EC 07-17 tablet by ity of tablet 00:00: 05:59 mouth in [place] 00 :00 the Medical morning Branch for 90 days. sennosides- 2021-06- No [id number] 1{tbl} Take 1 [facility] docusate 2-08 tablet by ity o f sodium 00:00: 05:59 mouth in [place] 8.6-50 mg 00 :00 the Medical per tablet morning Branch for 90 days. pantoprazol 2021-06- No [id number] 40mg Take 1 [facility] e 40 mg EC 07-17- tablet by ity of tablet 00:00: 05:59 mouth in [place] 00 :00 the Medical morning Branch for 90 days. sennosides- 2021-06- No [id number] 1{tbl} Take 1 [facility] docusate 2-12 10-08 tablet by ity o f sodium 00:00: 05:59 mouth in [place] 8.6-50 mg 00 :00 the Medical per tablet morning Branch for 90 days. pantoprazol 2021-06 No [id number] 40mg Take 1 [facility] e 40 mg EC 07-17-08 tablet by ity of tablet 00:00: 05:59 mouth in [place] 00 :00 the Medical morning Branch for 90 days. sennosides- 2021-06- No [id number] 1{tbl} Take 1 [facility] docusate 2-08 tablet by ity o f sodium 00:00: 05:59 mouth in [place] 8.6-50 mg 00 :00 the Medical per tablet morning Branch for 90 days. pantoprazol 2021-06- No [id number] 40mg Take 1 [facility] e 40 mg EC 07-17-08 tablet by ity of tablet 00:00: 05:59 mouth in [place] 00 :00 the Medical morning Branch for 90 days. sennosides- 2021-06- No [id number] 1{tbl} Take 1 [facility] docusate 07-17- tablet by ity o f sodium 00:00: 05:59 mouth in [place] 8.6-50 mg 00 :00 the Medical per tablet morning Branch for 90 days. pantoprazol 2021-06 No [id number] 40mg Take 1 [facility] e 40 mg EC 07-17- tablet by ity of tablet 00:00: 05:59 mouth in [place] 00 :00 the Medical morning Branch for 90 days. sennosides- 2021-06- No [id number] 1{tbl} Take 1 [facility] docusate 07-17- tablet by ity o f sodium 00:00: 05:59 mouth in [place] 8.6-50 mg 00 :00 the Medical per tablet morning Branch for 90 days. pantoprazol 2021-06- No [id number] 40mg Take 1 [facility] e 40 mg EC 07-17- tablet by ity of tablet 00:00: 05:59 mouth in [place] 00 :00 the Medical morning Branch for 90 days. sennosides- 2021-06- No [id number] 1{tbl} Take 1 [facility] docusate 2-08 tablet by ity o f sodium 00:00: 05:59 mouth in [place] 8.6-50 mg 00 :00 the Medical per tablet morning Branch for 90 days. pantoprazol 2021-06- No [id number] 40mg Take 1 [facility] e 40 mg EC 07-17-08 tablet by ity of tablet 00:00: 05:59 mouth in [place] 00 :00 the Medical morning Branch for 90 days. sennosides- 2021-06- No [id number] 1{tbl} Take 1 [facility] docusate 2-08 tablet by ity o f sodium 00:00: 05:59 mouth in [place] 8.6-50 mg 00 :00 the Medical per tablet morning Branch for 90 days. pantoprazol 2021-06- No [id number] 40mg Take 1 [facility] e 40 mg EC 07-17- tablet by ity of tablet 00:00: 05:59 mouth in [place] 00 :00 the Medical morning Branch for 90 days. sennosides- 2021-06- No [id number] 1{tbl} Take 1 [facility] docusate 07-17-08 tablet by ity o f sodium 00:00: 05:59 mouth in [place] 8.6-50 mg 00 :00 the Medical per tablet morning Branch for 90 days. pantoprazol 2021-06- No [id number] 40mg Take 1 [facility] e 40 mg EC 07-17- tablet by ity of tablet 00:00: 05:59 mouth in [place] 00 :00 the Medical morning Branch for 90 days. sennosides- 2021-06- No [id number] 1{tbl} Take 1 [facility] docusate 07-17- tablet by ity o f sodium 00:00: 05:59 mouth in [place] 8.6-50 mg 00 :00 the Medical per tablet morning Branch for 90 days. pantoprazol 2021-06- No [id number] 40mg Take 1 [facility] e 40 mg EC 07-17- tablet by ity of tablet 00:00: 05:59 mouth in [place] 00 :00 the Medical morning Branch for 90 days. sennosides- 2021-06- No [id number] 1{tbl} Take 1 [facility] docusate 2-08 tablet by ity o f sodium 00:00: 05:59 mouth in [place] 8.6-50 mg 00 :00 the Medical per tablet morning Branch for 90 days. pantoprazol 2021-06 No [id number] 40mg Take 1 [facility] e 40 mg EC 07-17-08 tablet by ity of tablet 00:00: 05:59 mouth in [place] 00 :00 the Medical morning Branch for 90 days. sennosides- 2021-06- No [id number] 1{tbl} Take 1 [facility] docusate 07-17 tablet by ity o f sodium 00:00: 05:59 mouth in [place] 8.6-50 mg 00 :00 the Medical per tablet morning Branch for 90 days. pantoprazol 2021-06- No [id number] 40mg Take 1 [facility] e 40 mg EC 07-17 tablet by ity of tablet 00:00: 05:59 mouth in [place] 00 :00 the Medical morning Branch for 90 days. sennosides- 2021-06- No [id number] 1{tbl} Take 1 [facility] docusate 07-17 tablet by ity o f sodium 00:00: 05:59 mouth in [place] 8.6-50 mg 00 :00 the Medical per tablet morning Branch for 90 days. carvediloL 2021-06 Yes 3.125mg 3.125 mg, Univers (COREG) 07-16 Oral, BID ity of tablet 19:45: MEALS, [place] 3.125 mg 00 First dose Medic al (after Branch last modificati on) on Sat05/15/22 at 1345, Until Discontinu ed, Routine carvediloL 2021-06- No 3.125mg 3.125 mg, Univers (COREG) 07-16 Oral, BID ity of tablet 19:45: 02:06 MEALS, [place] 3.125 mg 00 :37 First dose Medic al (after Branch last modificati on) on Sat05/15/22 at 1345, Until Discontinu ed, Routine acetaminoph 2021-06 Yes 1300mg Take 1,300 [facility] en (TYLENOL 2-06 mg by ity of [place] 18:06: [place] 650 34 the Medical mg CR morning Branch tablet and 1,300 mg at noon and 1,300 mg in the evening. acetaminoph 2021-06 Yes 1300mg Take 1,300 [facility] en (TYLENOL 2-06 mg by ity of [place]IT[place] 18:06: [place] 650 34 the Medical mg CR morning Branch tablet and 1,300 mg at noon and 1,300 mg in the evening. acetaminoph 2021-06 Yes 1300mg Take 1,300 [facility] en (TYLENOL 2-06 mg by ity of [place]IT[place] 18:06: [place] 650 34 the Medical mg CR morning Branch tablet and 1,300 mg at noon and 1,300 mg in the evening. acetaminoph 2021-06 Yes 1300mg Take 1,300 [facility] en (TYLENOL 2-06 mg by ity of [place]RITIS 18:06: [place] 650 34 the Medical mg CR morning Branch tablet and 1,300 mg at noon and 1,300 mg in the evening. acetaminoph 2021-06 Yes 1300mg Take 1,300 [facility] en (TYLENOL 2-06 mg by ity of [place]IT[place] 18:06: [place] 650 34 the Medical mg CR morning Branch tablet and 1,300 mg at noon and 1,300 mg in the evening. acetaminoph 2021-06 Yes 1300mg Take 1,300 [facility] en (TYLENOL 2-06 mg by ity of [place]IT[place] 18:06: [place] 650 34 the Medical mg CR morning Branch tablet and 1,300 mg at noon and 1,300 mg in the evening. acetaminoph 2021-06 Yes 1300mg Take 1,300 [facility] en (TYLENOL 2-06 mg by ity of [place]IT[place] 18:06: [place] 650 34 the Medical mg CR morning Branch tablet and 1,300 mg at noon and 1,300 mg in the evening. acetaminoph 2021-06 Yes 1300mg Take 1,300 [facility] en (TYLENOL 2-06 mg by ity of [place]IT[place] 18:06: [place] 650 34 the Medical mg CR morning Branch tablet and 1,300 mg at noon and 1,300 mg in the evening. acetaminoph 2021-06 Yes 1300mg Take 1,300 [facility] en (TYLENOL 2-06 mg by ity of [place]IT[place] 18:06: [place] 650 34 the Medical mg CR morning Branch tablet and 1,300 mg at noon and 1,300 mg in the evening. acetaminoph 2021-06 Yes 1300mg Take 1,300 [facility] en (TYLENOL 2-06 mg by ity of [place] 18:06: [place] 650 34 the Medical mg CR morning Branch tablet and 1,300 mg at noon and 1,300 mg in the evening. acetaminoph 2021-06 Yes 1300mg Take 1,300 [facility] en (TYLENOL 2-06 mg by ity of [place] 18:06: [place] 650 34 the Medical mg CR morning Branch tablet and 1,300 mg at noon and 1,300 mg in the evening. acetaminoph 2021-06 Yes 1300mg Take 1,300 [facility] en (TYLENOL 2-06 mg by ity of [place] 18:06: [place] 650 34 the Medical mg CR morning Branch tablet and 1,300 mg at noon and 1,300 mg in the evening. acetaminoph 2021-06 Yes 1300mg Take 1,300 [facility] en (TYLENOL 2-06 mg by ity of [place]ITIS 18:06: [place] 650 34 the Medical mg CR morning Branch tablet and 1,300 mg at noon and 1,300 mg in the evening. acetaminoph 2021-06 Yes 1300mg Take 1,300 [facility] en (TYLENOL 2-06 mg by ity of [place]IT[place] 18:06: [place] 650 34 the Medical mg CR morning Branch tablet and 1,300 mg at noon and 1,300 mg in the evening. sennosides- 2021-06 Yes 1{tbl} 1 tablet, [facility] docusate 206 Oral, ity of sodium 18:00: DAILY, [place] (SENOKOT-S) 00 First dose Me dical 8.6-50 mg on Sat Branch per tablet 05/15/22 at 1 tablet 1200, Until Discontinu ed, Routine sennosides- 2021-06- No 1{tbl} 1 tablet, Univers docusate 2-06 12-07 Oral, ity of sodium 18:00: 02:06 DAILY, [place] (SENOKOT-S) 00 :37 First dose Me dical 8.6-50 mg on Sat Branch per tablet 05/15/22 at 1 tablet 1200, Until Discontinu ed, Routine nicotine 2021-06 Yes 1{patch 1 Patch, Un miracle (NICODERM) 2 } Topical, ity o f 7 mg/24 hr 15:00: Administer [place] patch 1 00 over 24 Medical Patch Hours, Branch Q24H, First dose on Sat05/15/22 at 0900, Until Discontinu ed, Routine furosemide 2021-06 Yes 40mg 40 mg, Unive rs (LASIX) 07-16 Oral, ity of tablet 40 15:00: DAILY, [place] mg 00 First dose Medical on [facility] 05/15/22 at 0900, Until Discontinu ed, Routine atorvastati 2021-06 Yes 40mg 40 mg, Univ ers n (LIPITOR) 07-16 Oral, ity of tablet 40 15:00: DAILY, [place] mg 00 First dose Medical on [facility] 05/15/22 at 0900, Until Discontinu ed, Routine nicotine 2021-06 No 1{patch 1 Patch, U nivers (NICODERM) 07-16 } Topical, ity of 7 mg/24 hr 15:00: 02:06 Administer [place] patch 1 00 :37 over 24 Medical Patch Hours, Branch Q24H, First dose on Sat05/15/22 at 0900, Until Discontinu ed, Routine furosemide 2021-06 No 40mg 40 mg, Univ ers (LASIX) 07-16 Oral, ity of tablet 40 15:00: 02:06 DAILY, [place] mg 00 :37 First dose Medical on [facility] 05/15/22 at 0900, Until Discontinu ed, Routine atorvastati 2021-06 No 40mg 40 mg, Uni vers n (LIPITOR) 07-16 Oral, ity of tablet 40 15:00: 02:06 DAILY, [place] mg 00 :37 First dose Medical on [facility] 05/15/22 at 0900, Until Discontinu ed, Routine metoprolol 2021-06 No 25mg 25 mg, Univ ers succinate 07-16 Oral, ity of XL (TOPROL 15:00: 16:29 [place]ILY, [place] XL[place] tablet 00 :39 First dose Med ical 25 mg (after Branch last reorder) on Sat05/15/22 at 0900, Until Discontinu ed, Routine diltiazem 2021-06 No 240mg 240 mg, Uni vers XR 07-16 Oral, ity of (DILT-XR) 15:00: 16:29 DAILY, [place] capsule 240 00 :39 First dose Me dical mg on [facility] 05/15/22 at 0900, Until Discontinu ed, Routine aspirin EC 2021-06 No 81mg 81 mg, Univ ers tablet 81 07-16 Oral, ity of mg 15:00: 21:49 DAILY, [place] 00 :38 First dose Medical on [facility] 05/15/22 at 0900, Until Discontinu ed, Routine metoprolol 2021-06 No 25mg 25 mg, Univ ers succinate 07-16 Oral, ity of XL (TOPROL 15:00: 16:29 [place]ILY, [place] XL[place] tablet 00 :39 First dose Med ical 25 mg (after Branch last reorder) on [facility] 05/15/22 at 0900, Until Discontinu ed, Routine diltiazem 2021-06 No 240mg 240 mg, Uni vers XR 07-16 Oral, ity of (DILT-XR) 15:00: 16:29 DAILY, [place] capsule 240 00 :39 First dose Me dical mg on [facility] 05/15/22 at 0900, Until Discontinu ed, Routine aspirin EC 2021-06 No 81mg 81 mg, Univ ers tablet 81 07-16 Oral, ity of mg 15:00: 21:49 DAILY, [place] 00 :38 First dose Medical on [facility] 05/15/22 at 0900, Until Discontinu ed, Routine iron 2021-06 No 1000mg 1,000 mg, Unive rs dextran 07-16 IV ity of (INFED) 14:45: 18:10 [place]fusion, [place] 1,000 mg in 00 :00 ONCE, 1 Medic al NaCl 0.9% dose, On Branch (NS) 500 mL Tue IV infusion 05/15/22 at 0845, Administer over 1.5 Hours, 500 mL iron 2021-06 No 25mg 25 mg, IV Univers dextran 07-16 Piggyback, ity o f (INFED) 25 14:45: 16:36 ONCE, 1 [place] mg in NaCl 00 :00 dose, On Medic al 0.9% (NS) [facility] Branch 100 mL IV 05/15/22 at piggyback 0845, Administer over 15 Minutes, 100 mL iron 2021-06 No 1000mg 1,000 mg, Unive rs dextran 07-16 IV ity of (INFED) 14:45: 18:10 [place]fusion, [place] 1,000 mg in 00 :00 ONCE, 1 Medic al NaCl 0.9% dose, On Branch (NS) 500 mL Tue IV infusion 05/15/22 at 0845, Administer over 1.5 Hours, 500 mL iron 2021-06 No 25mg 25 mg, IV [facility] dextran 07-16 Piggyback, ity o f (INFED) 25 14:45: 16:36 ONCE, 1 [place] mg in NaCl 00 :00 dose, On Medic al 0.9% (NS) [facility] 100 mL IV 05/15/22 at piggyback 0845, Administer over 15 Minutes, 100 mL polyethylen 2021-06 Yes 17g 17 g, Unive rs e glycol 07-16 Oral, ity of 3350 powder 14:15: DAILY, [place] 17 g 00 First dose Medical on [facility] 05/15/22 at 0815, Until Discontinu ed, Routine polyethylen 2021-06 No 17g 17 g, Univ ers e glycol 07-16 Oral, ity of 3350 powder 14:15: 02:06 DAILY, [place] 17 g 00 :37 First dose Medical on [facility] 05/15/22 at 0815, Until Discontinu ed, Routine docusate 2021-06 No 100mg 100 mg, Univ ers (COLACE) 07-16 Oral, ity of capsule 100 14:15: 17:51 DAILY, [place] mg 00 :09 First dose Medical on [facility] 05/15/22 at 0815, Until Discontinu ed, Routine docusate 2021-06 No 100mg 100 mg, Univ ers (COLACE) 07-16 Oral, ity of capsule 100 14:15: 17:51 DAILY, [place] mg 00 :09 First dose Medical on [facility] 05/15/22 at 0815, Until Discontinu ed, Routine KCL 20 2021-06 No 20meq 20 mEq, Univer s mEq/15 mL 07-16 Oral, ity of solution 20 13:45: 15:58 ONCE, 1 [place] mEq 00 :00 dose, On Medical [facility] Branch 05/15/22 at 0745, Routine magnesium 2021-06 No 2g 2 g, IV Univ ers sulfate in 07-16 Piggyback, it y of water 2 13:45: 19:37 Administer [place] gram/50 mL 00 :00 over 60 Medica l (4 %) Minutes, Branch infusion 2 ONCE, 1 g dose, On Sat05/15/22 at 0745, Routine KCL 20 2021-06 No 20meq 20 mEq, Univer s mEq/15 mL 07-16 Oral, ity of solution 20 13:45: 15:58 ONCE, 1 [place] mEq 00 :00 dose, On Medical [facility] Branch 05/15/22 at 0745, Routine magnesium 2021-06 No 2g 2 g, IV Univ ers sulfate in 07-16 Piggyback, it y of water 2 13:45: 19:37 Administer [place] gram/50 mL 00 :00 over 60 Medica l (4 %) Minutes, Branch infusion 2 ONCE, 1 g dose, On Sat05/15/22 at 0745, Routine hydralAZINE 2021-06 No 10mg 10 mg, Uni vers (APRESOLINE 07-16 Slow IV ity of ) injection 08:00: 07:27 [place], [place] 10 mg 00 :00 ONCE, 1 Medical dose, On [place] Sat05/15/22 at 0200, STAT hydralAZINE 2021-06 No 10mg 10 mg, Uni vers (APRESOLINE 07-16 Slow IV ity of ) injection 08:00: 07:27 [place], [place] 10 mg 00 :00 ONCE, 1 Medical dose, On [place] Sat05/15/22 at 0200, STAT acetaminoph 2021-06 Yes 325mg 325 mg, Un miracle en 07-16 Oral, ity of (TYLENOL) 07:42: Q6HPRN, [place] tablet 325 01 Starting Medic al mg on [facility] 05/15/22 at 0142, Until Discontinu ed, Routine, Alternate with ibuprofen for pain scale 4-6 acetaminoph 2021-06 No 325mg 325 mg, U nivers en 07-16 Oral, ity of (TYLENOL) 07:42: 02:06 Q6HPRN, [place] tablet 325 01 :37 Starting Medic al mg on Sat [place] 05/15/22 at 0142, Until Sat05/15/22 at 2006, Routine, Alternate with ibuprofen for pain scale 4-6 apixaban 2021-06 Yes 1358 2.5mg 2.5 mg, Unive rs (ELIQUIS) 07-16 Oral, BID, ity of tablet 2.5 02:00: First dose [place] mg 00 on [facility] 05/14/22 at [place] 1999, Until Discontinu ed, Routine
Indicatio ns: Non-Valvul ar Atrial Fibrillati on apixaban 2021-06 No 1358 2.5mg 2.5 mg, Univ ers (ELIQUIS) 07-16 Oral, BID, ity of tablet 2.5 02:00: 02:06 First dose [place] mg 00 :37 on [facility] 05/14/22 at [place] 1999, Until Discontinu ed, Routine
Indicatio ns: Non-Valvul ar Atrial Fibrillati on hydralAZINE 2021-06- No [id number] 10mg 10 mg, Univers (APRESOLINE 07-16 Slow IV ity of ) injection 00:30: 23:42 [place], [place] 10 mg 00 :00 ONCE, 1 Medical dose, On [facility] 05/14/22 at 1830, STAT hydralAZINE 2021-06- No [id number] 10mg 10 mg, Univers (APRESOLINE 07-16 Slow IV ity of ) injection 00:30: 23:42 [place], [place] 10 mg 00 :00 ONCE, 1 Medical dose, On [facility] 05/14/22 at 1830, STAT atorvastati 2021-06- No [id number] 40mg Take 1 Univers n 40 mg 07-16 tablet by ity of tablet 00:00: 05:59 mouth in [place] 00 :00 the Medical morning. Branch atorvastati 2021-06- No [id number] 40mg Take 1 Univers n 40 mg 07-16 tablet by ity of tablet 00:00: 05:59 mouth in [place] 00 :00 the Medical morning. [place] jasmyn 2021-06- No [id number] 40mg Take 1 Univers n 40 mg 07-16 tablet by ity of tablet 00:00: 05:59 mouth in [place] 00 :00 the Medical morning. [place] monica 2021-06- No [id number] 40mg Take 1 Univers n 40 mg 07-16 tablet by ity of tablet 00:00: 05:59 mouth in [place] 00 :00 the Medical morning. [place] monica 2021-06- No [id number] 40mg Take 1 Univers n 40 mg 07-16 tablet by ity of tablet 00:00: 05:59 mouth in [place] 00 :00 the Medical morning. [place] monica 2021-06- No [id number] 40mg Take 1 Univers n 40 mg 07-16 tablet by ity of tablet 00:00: 05:59 mouth in [place] 00 :00 the Medical morning. [place] monica 2021-06- No [id number] 40mg Take 1 Univers n 40 mg 07-16 tablet by ity of tablet 00:00: 05:59 mouth in [place] 00 :00 the Medical morning. [place] monica 2021-06- No [id number] 40mg Take 1 Univers n 40 mg 07-16 tablet by ity of tablet 00:00: 05:59 mouth in [place] 00 :00 the Medical morning. [place] monica 2021-06- No [id number] 40mg Take 1 Univers n 40 mg 07-16 tablet by ity of tablet 00:00: 05:59 mouth in [place] 00 :00 the Medical morning. [place] atorvasjackie 2021-06- No [id number] 40mg Take 1 Univers n 40 mg 07-16 tablet by ity of tablet 00:00: 05:59 mouth in [place] 00 :00 the Medical morning. [place] atorvasjackie 2021-06- No [id number] 40mg Take 1 Univers n 40 mg 07-16 tablet by ity of tablet 00:00: 05:59 mouth in [place] 00 :00 the Medical morning. [place] jasmyn 2021-06- No [id number] 40mg Take 1 Univers n 40 mg 07-16 tablet by ity of tablet 00:00: 05:59 mouth in [place] 00 :00 the Medical morning. [place] jasmyn 2021-06- No [id number] 40mg Take 1 Univers n 40 mg 07-16 tablet by ity of tablet 00:00: 05:59 mouth in [place] 00 :00 the Medical morning. [place] jasmyn 2021-06- No [id number] 40mg Take 1 Univers n 40 mg 07-16 tablet by ity of tablet 00:00: 05:59 mouth in [place] 00 :00 the Medical morning. [place] jasmyn 2021-06- No [id number] 40mg Take 1 Univers n 40 mg 07-16 tablet by ity of tablet 00:00: 05:59 mouth in [place] 00 :00 the Medical morning. [place] jasmyn 2021-06- No [id number] 40mg Take 1 Univers n 40 mg 07-16 tablet by ity of tablet 00:00: 05:59 mouth in [place] 00 :00 the Medical morning. [place] jasmyn 2021-06- No [id number] 40mg Take 1 Univers n 40 mg 07-16 tablet by ity of tablet 00:00: 05:59 mouth in [place] 00 :00 the Medical morning. [place] harshavastori 2021-06- No [id number] 40mg Take 1 Univers n 40 mg 07-16 tablet by ity of tablet 00:00: 05:59 mouth in [place] 00 :00 the Medical morning. [place] atorvastori 2021-06- No [id number] 40mg Take 1 Univers n 40 mg 07-16 tablet by ity of tablet 00:00: 05:59 mouth in [place] 00 :00 the Medical morning. [place] atorvastajesus 2021-06- No [id number] 40mg Take 1 Univers n 40 mg 07-16 tablet by ity of tablet 00:00: 05:59 mouth in [place] 00 :00 the Medical morning. [place] monicati 2021-06- No [id number] 40mg Take 1 Univers n 40 mg 07-16 tablet by ity of tablet 00:00: 05:59 mouth in [place] 00 :00 the Medical morning. [place] atorkristen 2021-06- No [id number] 40mg Take 1 Univers n 40 mg 07-16 tablet by ity of tablet 00:00: 05:59 mouth in [place] 00 :00 the Medical morning. [place] atorkristen 2021-06- No [id number] 40mg Take 1 Univers n 40 mg 07-16 tablet by ity of tablet 00:00: 05:59 mouth in [place] 00 :00 the Medical morning. [place] jasmyn 2021-06- No [id number] 40mg Take 1 Univers n 40 mg 07-16 tablet by ity of tablet 00:00: 05:59 mouth in [place] 00 :00 the Medical morning. [place] monica 2021-06- No [id number] 40mg Take 1 Univers n 40 mg 07-16 tablet by ity of tablet 00:00: 05:59 mouth in [place] 00 :00 the Medical morning. [place] monica 2021-06- No [id number] 40mg Take 1 Univers n 40 mg 07-16 tablet by ity of tablet 00:00: 05:59 mouth in [place] 00 :00 the Medical morning. [place] atortelly 2021-06- No [id number] 40mg Take 1 Univers n 40 mg 07-16 tablet by ity of tablet 00:00: 05:59 mouth in [place] 00 :00 the Medical morning. [place] atorvasjackie 2021-06- No [id number] 40mg Take 1 Univers n 40 mg 07-16 tablet by ity of tablet 00:00: 05:59 mouth in [place] 00 :00 the Medical morning. [place] atorvasjackie 2021-06- No [id number] 40mg Take 1 Univers n 40 mg 07-16 tablet by ity of tablet 00:00: 05:59 mouth in [place] 00 :00 the Medical morning. [place] atorvasjackie 2021-06- No [id number] 40mg Take 1 Univers n 40 mg 07-16 tablet by ity of tablet 00:00: 05:59 mouth in [place] 00 :00 the Medical morning. [place] jasmyn 2021-06- No [id number] 40mg Take 1 Univers n 40 mg 07-16 tablet by ity of tablet 00:00: 05:59 mouth in [place] 00 :00 the Medical morning. [place] jasmyn 2021-06- No [id number] 40mg Take 1 Univers n 40 mg 07-16 tablet by ity of tablet 00:00: 05:59 mouth in [place] 00 :00 the Medical morning. [place] jasmyn 2021-06- No [id number] 40mg Take 1 Univers n 40 mg 07-16 tablet by ity of tablet 00:00: 05:59 mouth in [place] 00 :00 the Medical morning. [place] jasmyn 2021-06- No [id number] 40mg Take 1 Univers n 40 mg 07-16 tablet by ity of tablet 00:00: 05:59 mouth in [place] 00 :00 the Medical morning. [place] jasmyn 2021-06- No [id number] 40mg Take 1 Univers n 40 mg 07-16 tablet by ity of tablet 00:00: 05:59 mouth in [place] 00 :00 the Medical morning. [place] jasmyn 2021-06- No [id number] 40mg Take 1 Univers n 40 mg 07-16 tablet by ity of tablet 00:00: 05:59 mouth in [place] 00 :00 the Medical morning. [place] jasmyn 2021-06- No [id number] 40mg Take 1 Univers n 40 mg 07-16 tablet by ity of tablet 00:00: 05:59 mouth in [place] 00 :00 the Medical morning. [place] jasmyn 2021-06- No [id number] 40mg Take 1 Univers n 40 mg 07-16 tablet by ity of tablet 00:00: 05:59 mouth in [place] 00 :00 the Medical morning. [place] jasmyn 2021-06- No [id number] 40mg Take 1 Univers n 40 mg 07-16 tablet by ity of tablet 00:00: 05:59 mouth in [place] 00 :00 the Medical morning. [place] jasmyn 2021-06- No [id number] 40mg Take 1 Univers n 40 mg 07-16 tablet by ity of tablet 00:00: 05:59 mouth in [place] 00 :00 the Medical morning. [place] atortelly 2021-06- No [id number] 40mg Take 1 Univers n 40 mg 07-16 tablet by ity of tablet 00:00: 05:59 mouth in [place] 00 :00 the Medical morning. [place] atorvasjackie 2021-06- No [id number] 40mg Take 1 Univers n 40 mg 07-16 tablet by ity of tablet 00:00: 05:59 mouth in [place] 00 :00 the Medical morning. [place] monica 2021-06- No [id number] 40mg Take 1 Univers n 40 mg 07-16 tablet by ity of tablet 00:00: 05:59 mouth in [place] 00 :00 the Medical morning. [place] monica 2021-06- No [id number] 40mg Take 1 Univers n 40 mg 07-16 tablet by ity of tablet 00:00: 05:59 mouth in [place] 00 :00 the Medical morning. [place] monica 2021-06- No [id number] 40mg Take 1 Univers n 40 mg 07-16 tablet by ity of tablet 00:00: 05:59 mouth in [place] 00 :00 the Medical morning. [place] harshavasjackie 2021-06- No [id number] 40mg Take 1 Univers n 40 mg 07-16 tablet by ity of tablet 00:00: 05:59 mouth in [place] 00 :00 the Medical morning. [place] atorvasta 2021-06- No [id number] 40mg Take 1 Univers n 40 mg 07-16 tablet by ity of tablet 00:00: 05:59 mouth in [place] 00 :00 the Medical morning. [place] atorvasjackie 2021-06- No [id number] 40mg Take 1 Univers n 40 mg 07-16 tablet by ity of tablet 00:00: 05:59 mouth in [place] 00 :00 the Medical morning. Branch atorvastati 2021-06- No [id number] 40mg Take 1 Univers n 40 mg 07-16 tablet by ity of tablet 00:00: 05:59 mouth in [place] 00 :00 the Medical morning. Branch carvediloL 2021-06- No [id number] 3.125mg Take 1 Univers 3.125 mg 07-16 tablet by ity o f tablet 00:00: 05:59 mouth in [place] 00 :00 the Medical morning Branch and 1 tablet in the evening. Take with meals. atorvastati 2021-06- No [id number] 40mg Take 1 Univers n 40 mg 07-16 tablet by ity of tablet 00:00: 05:59 mouth in [place] 00 :00 the Medical morning. Branch carvediloL 2021-06- No [id number] 3.125mg Take 1 Univers 3.125 mg 07-16 tablet by ity o f tablet 00:00: 05:59 mouth in [place] 00 :00 the Medical morning Branch and 1 tablet in the evening. Take with meals. atorvastati 2021-06- No [id number] 40mg Take 1 Univers n 40 mg 07-16 tablet by ity of tablet 00:00: 05:59 mouth in [place] 00 :00 the Medical morning. [facility] carvediloL 2021-06- No [id number] 3.125mg Take 1 [facility] 3.125 mg 07-16 tablet by [facility] o f tablet 00:00: 05:59 mouth in [place] 00 :00 the Medical morning Branch and 1 tablet in the evening. Take with meals. atorvastati 2021-06- No [id number] 40mg Take 1 [facility] n 40 mg 07-16 tablet by [facility] of tablet 00:00: 05:59 mouth in [place] 00 :00 the Medical morning. [facility] carvediloL 2021-06- No [id number] 3.125mg Take 1 [facility] 3.125 mg 07-16 tablet by [facility] o f tablet 00:00: 05:59 mouth in [place] 00 :00 the Medical morning Branch and 1 tablet in the evening. Take with meals. atorvastati 2021-06- No [id number] 40mg Take 1 [facility] n 40 mg 07-16 tablet by [facility] of tablet 00:00: 05:59 mouth in [place] 00 :00 the Medical morning. [facility] carvediloL 2021-06- No [id number] 3.125mg Take 1 [facility] 3.125 mg 07-16 tablet by [facility] o f tablet 00:00: 05:59 mouth in [place] 00 :00 the Medical morning Branch and 1 tablet in the evening. Take with meals. atorvastati 2021-06- No [id number] 40mg Take 1 [facility] n 40 mg 07-16 tablet by [facility] of tablet 00:00: 05:59 mouth in [place] 00 :00 the Medical morning. [place] carvediloL 2021-06- No [id number] 3.125mg Take 1 [facility] 3.125 mg 07-16 tablet by [facility] o f tablet 00:00: 05:59 mouth in [place] 00 :00 the Medical morning Branch and 1 tablet in the evening. Take with meals. atorvastati 2021-06- No [id number] 40mg Take 1 [facility] n 40 mg 07-16 tablet by [facility] of tablet 00:00: 05:59 mouth in [place] 00 :00 the Medical morning. [place] carvediloL 2021-06- No [id number] 3.125mg Take 1 [facility] 3.125 mg 07-16 tablet by [facility] o f tablet 00:00: 05:59 mouth in [place] 00 :00 the Medical morning Branch and 1 tablet in the evening. Take with meals. atorvastati 2021-06- No [id number] 40mg Take 1 [facility] n 40 mg 07-16 tablet by [facility] of tablet 00:00: 05:59 mouth in [place] 00 :00 the Medical morning. [place] carvediloL 2021-06- No [id number] 3.125mg Take 1 [facility] 3.125 mg 07-16 tablet by [facility] o f tablet 00:00: 05:59 mouth in [place] 00 :00 the Medical morning Branch and 1 tablet in the evening. Take with meals. atorvastati 2021-06- No [id number] 40mg Take 1 [facility] n 40 mg 07-16 tablet by [facility] of tablet 00:00: 05:59 mouth in [place] 00 :00 the Medical morning. [facility] carvediloL 2021-06- No [id number] 3.125mg Take 1 [facility] 3.125 mg 07-16 tablet by [facility] o f tablet 00:00: 05:59 mouth in [place] 00 :00 the Medical morning Branch and 1 tablet in the evening. Take with meals. atorvastati 2021-06- No [id number] 40mg Take 1 [facility] n 40 mg 07-16 tablet by [facility] of tablet 00:00: 05:59 mouth in [place] 00 :00 the Medical morning. [facility] carvediloL 2021-06- No [id number] 3.125mg Take 1 [facility] 3.125 mg 07-16 tablet by [facility] o f tablet 00:00: 05:59 mouth in [place] 00 :00 the Medical morning Branch and 1 tablet in the evening. Take with meals. atorvastati 2021-06- No [id number] 40mg Take 1 [facility] n 40 mg 07-16 tablet by [facility] of tablet 00:00: 05:59 mouth in [place] 00 :00 the Medical morning. [facility] carvediloL 2021-06- No [id number] 3.125mg Take 1 [facility] 3.125 mg 07-16 tablet by [facility] o f tablet 00:00: 05:59 mouth in [place] 00 :00 the Medical morning Branch and 1 tablet in the evening. Take with meals. atorvastati 2021-06- No [id number] 40mg Take 1 [facility] n 40 mg 07-16 tablet by [facility] of tablet 00:00: 05:59 mouth in [place] 00 :00 the Medical morning. [facility] carvediloL 2021-06- No [id number] 3.125mg Take 1 [facility] 3.125 mg 07-16 tablet by [facility] o f tablet 00:00: 05:59 mouth in [place] 00 :00 the Medical morning Branch and 1 tablet in the evening. Take with meals. atorvastati 2021-06- No [id number] 40mg Take 1 [facility] n 40 mg 2-06 12-07 tablet by [facility] of tablet 00:00: 05:59 mouth in [place] 00 :00 the Medical morning. [facility] carvediloL 2021-06- No [id number] 3.125mg Take 1 [facility] 3.125 mg 07-16 tablet by [facility] o f tablet 00:00: 05:59 mouth in [place] 00 :00 the Medical morning Branch and 1 tablet in the evening. Take with meals. atorvastati 2021-06- No [id number] 40mg Take 1 [facility] n 40 mg 07-16 tablet by [facility] of tablet 00:00: 05:59 mouth in [place] 00 :00 the Medical morning. [facility] carvediloL 2021-06- No [id number] 3.125mg Take 1 [facility] 3.125 mg 07-16 tablet by [facility] o f tablet 00:00: 05:59 mouth in [place] 00 :00 the Medical morning Branch and 1 tablet in the evening. Take with meals. atorvastati 2021-06- No [id number] 40mg Take 1 [facility] n 40 mg 07-16 tablet by [facility] of tablet 00:00: 05:59 mouth in [place] 00 :00 the Medical morning. [facility] carvediloL 2021-06- No [id number] 3.125mg Take 1 [facility] 3.125 mg 07-16 tablet by [facility] o f tablet 00:00: 05:59 mouth in [place] 00 :00 the Medical morning Branch and 1 tablet in the evening. Take with meals. atorvastati 2021-06- No [id number] 40mg Take 1 [facility] n 40 mg 07-16 tablet by [facility] of tablet 00:00: 05:59 mouth in [place] 00 :00 the Medical morning. [facility] carvediloL 2021-06- No [id number] 3.125mg Take 1 [facility] 3.125 mg 07-16 tablet by [facility] o f tablet 00:00: 05:59 mouth in [place] 00 :00 the Medical morning Branch and 1 tablet in the evening. Take with meals. atorvastati 2021-06- No [id number] 40mg Take 1 [facility] n 40 mg 07-16 tablet by [facility] of tablet 00:00: 05:59 mouth in [place] 00 :00 the Medical morning. [facility] atorvastati 2021-06- No [id number] 40mg Take 1 [facility] n 40 mg 07-16 tablet by [facility] of tablet 00:00: 05:59 mouth in [place] 00 :00 the Medical morning. [place] atortelly 2021-06- No [id number] 40mg Take 1 [facility] n 40 mg 07-16 tablet by [facility] of tablet 00:00: 05:59 mouth in [place] 00 :00 the Medical morning. [place] atorvastori 2021-06- No [id number] 40mg Take 1 [facility] n 40 mg 07-16 tablet by [facility] of tablet 00:00: 05:59 mouth in [place] 00 :00 the Medical morning. [place] atorkristen 2021-06- No [id number] 40mg Take 1 [facility] n 40 mg 07-16 tablet by [facility] of tablet 00:00: 05:59 mouth in [place] 00 :00 the Medical morning. [place] monica 2021-06- No [id number] 40mg Take 1 [facility] n 40 mg 07-16 tablet by [facility] of tablet 00:00: 05:59 mouth in [place] 00 :00 the Medical morning. [place] jasmyn 2021-06- No [id number] 40mg Take 1 [facility] n 40 mg 07-16 tablet by [facility] of tablet 00:00: 05:59 mouth in [place] 00 :00 the Medical morning. [place] atorvasjackie 2021-06- No [id number] 40mg Take 1 [facility] n 40 mg 07-16 tablet by [facility] of tablet 00:00: 05:59 mouth in [place] 00 :00 the Medical morning. [place] atorvasta 2021-06- No [id number] 40mg Take 1 [facility] n 40 mg 07-16 tablet by [facility] of tablet 00:00: 05:59 mouth in [place] 00 :00 the Medical morning. [place] atorvasjackie 2021-06- No [id number] 40mg Take 1 [facility] n 40 mg 07-16 tablet by [facility] of tablet 00:00: 05:59 mouth in [place] 00 :00 the Medical morning. [place] atortelly 2021-06- No [id number] 40mg Take 1 [facility] n 40 mg 07-16 tablet by [facility] of tablet 00:00: 05:59 mouth in [place] 00 :00 the Medical morning. [place] jasmyn 2021-06- No [id number] 40mg Take 1 [facility] n 40 mg 07-16 tablet by [facility] of tablet 00:00: 05:59 mouth in [place] 00 :00 the Medical morning. [place] monica 2021-06- No [id number] 40mg Take 1 [facility] n 40 mg 07-16 tablet by [facility] of tablet 00:00: 05:59 mouth in [place] 00 :00 the Medical morning. [place] monica 2021-06- No [id number] 40mg Take 1 [facility] n 40 mg 07-16 tablet by [facility] of tablet 00:00: 05:59 mouth in [place] 00 :00 the Medical morning. [place] monica 2021-06- No [id number] 40mg Take 1 [facility] n 40 mg 07-16 tablet by [facility] of tablet 00:00: 05:59 mouth in [place] 00 :00 the Medical morning. [place] monica 2021-06- No [id number] 40mg Take 1 [facility] n 40 mg 07-16 tablet by [facility] of tablet 00:00: 05:59 mouth in [place] 00 :00 the Medical morning. [place] monica 2021-06- No [id number] 40mg Take 1 [facility] n 40 mg 07-16 tablet by [facility] of tablet 00:00: 05:59 mouth in [place] 00 :00 the Medical morning. [place] monica 2021-06- No [id number] 40mg Take 1 [facility] n 40 mg 07-16 tablet by [facility] of tablet 00:00: 05:59 mouth in [place] 00 :00 the Medical morning. [place] monica 2021-06- No [id number] 40mg Take 1 [facility] n 40 mg 07-16 tablet by [facility] of tablet 00:00: 05:59 mouth in [place] 00 :00 the Medical morning. [place] monica 2021-06- No [id number] 40mg Take 1 [facility] n 40 mg 07-16 tablet by [facility] of tablet 00:00: 05:59 mouth in [place] 00 :00 the Medical morning. [place] jasmyn 2021-06- No [id number] 40mg Take 1 [facility] n 40 mg 07-16 tablet by [facility] of tablet 00:00: 05:59 mouth in [place] 00 :00 the Medical morning. [place] monica 2021-06- No [id number] 40mg Take 1 [facility] n 40 mg 07-16 tablet by [facility] of tablet 00:00: 05:59 mouth in [place] 00 :00 the Medical morning. [place] monica 2021-06- No [id number] 40mg Take 1 [facility] n 40 mg 07-16 tablet by [facility] of tablet 00:00: 05:59 mouth in [place] 00 :00 the Medical morning. [place] monica 2021-06- No [id number] 40mg Take 1 [facility] n 40 mg 07-16 tablet by [facility] of tablet 00:00: 05:59 mouth in [place] 00 :00 the Medical morning. [place] monica 2021-06- No [id number] 40mg Take 1 [facility] n 40 mg 07-16 tablet by [facility] of tablet 00:00: 05:59 mouth in [place] 00 :00 the Medical morning. [place] monica 2021-06- No [id number] 40mg Take 1 [facility] n 40 mg 07-16 tablet by [facility] of tablet 00:00: 05:59 mouth in [place] 00 :00 the Medical morning. [place] monica 2021-06- No [id number] 40mg Take 1 [facility] n 40 mg 07-16 tablet by [facility] of tablet 00:00: 05:59 mouth in [place] 00 :00 the Medical morning. [place] atorvasjackie 2021-06- No [id number] 40mg Take 1 [facility] n 40 mg 07-16 tablet by [facility] of tablet 00:00: 05:59 mouth in [place] 00 :00 the Medical morning. [place] atorvasjackie 2021-06- No [id number] 40mg Take 1 [facility] n 40 mg 07-16 tablet by [facility] of tablet 00:00: 05:59 mouth in [place] 00 :00 the Medical morning. [place] jasmyn 2021-06- No [id number] 40mg Take 1 [facility] n 40 mg 07-16 tablet by [facility] of tablet 00:00: 05:59 mouth in [place] 00 :00 the Medical morning. [place] jasmyn 2021-06- No [id number] 40mg Take 1 [facility] n 40 mg 07-16 tablet by [facility] of tablet 00:00: 05:59 mouth in [place] 00 :00 the Medical morning. [place] jasmyn 2021-06- No [id number] 40mg Take 1 [facility] n 40 mg 07-16 tablet by [facility] of tablet 00:00: 05:59 mouth in [place] 00 :00 the Medical morning. [place] jasmyn 2021-06- No [id number] 40mg Take 1 [facility] n 40 mg 07-16 tablet by [facility] of tablet 00:00: 05:59 mouth in [place] 00 :00 the Medical morning. [place] jasmyn 2021-06- No [id number] 40mg Take 1 [facility] n 40 mg 07-16 tablet by [facility] of tablet 00:00: 05:59 mouth in [place] 00 :00 the Medical morning. [place] jasmyn 2021-06- No [id number] 40mg Take 1 [facility] n 40 mg 07-16 tablet by [facility] of tablet 00:00: 05:59 mouth in [place] 00 :00 the Medical morning. [place] harshavastori 2021-06- No [id number] 40mg Take 1 [facility] n 40 mg 07-16 tablet by [facility] of tablet 00:00: 05:59 mouth in [place] 00 :00 the Medical morning. [place] atorvastori 2021-06- No [id number] 40mg Take 1 [facility] n 40 mg 07-16 tablet by [facility] of tablet 00:00: 05:59 mouth in [place] 00 :00 the Medical morning. [place] atorvastajesus 2021-06- No [id number] 40mg Take 1 [facility] n 40 mg 07-16 tablet by [facility] of tablet 00:00: 05:59 mouth in [place] 00 :00 the Medical morning. [place] monicati 2021-06- No [id number] 40mg Take 1 [facility] n 40 mg 07-16 tablet by [facility] of tablet 00:00: 05:59 mouth in [place] 00 :00 the Medical morning. [place] atorkristen 2021-06- No [id number] 40mg Take 1 [facility] n 40 mg 07-16 tablet by [facility] of tablet 00:00: 05:59 mouth in [place] 00 :00 the Medical morning. [place] atorkristen 2021-06- No [id number] 40mg Take 1 [facility] n 40 mg 07-16 tablet by [facility] of tablet 00:00: 05:59 mouth in [place] 00 :00 the Medical morning. [place] jasmyn 2021-06- No [id number] 40mg Take 1 [facility] n 40 mg 07-16 tablet by [facility] of tablet 00:00: 05:59 mouth in [place] 00 :00 the Medical morning. [place] monica 2021-06- No [id number] 40mg Take 1 [facility] n 40 mg 07-16 tablet by [facility] of tablet 00:00: 05:59 mouth in [place] 00 :00 the Medical morning. [place] monica 2021-06- No [id number] 40mg Take 1 [facility] n 40 mg 07-16 tablet by [facility] of tablet 00:00: 05:59 mouth in [place] 00 :00 the Medical morning. [place] atortelly 2021-06- No [id number] 40mg Take 1 [facility] n 40 mg 07-16 tablet by [facility] of tablet 00:00: 05:59 mouth in [place] 00 :00 the Medical morning. [place] atorvasjackie 2021-06- No [id number] 40mg Take 1 [facility] n 40 mg 07-16 tablet by [facility] of tablet 00:00: 05:59 mouth in [place] 00 :00 the Medical morning. [place] atorvasjackie 2021-06- No [id number] 40mg Take 1 [facility] n 40 mg 07-16 tablet by [facility] of tablet 00:00: 05:59 mouth in [place] 00 :00 the Medical morning. [place] atorvasjackie 2021-06- No [id number] 40mg Take 1 [facility] n 40 mg 07-16 tablet by [facility] of tablet 00:00: 05:59 mouth in [place] 00 :00 the Medical morning. [place] jasmyn 2021-06- No [id number] 40mg Take 1 [facility] n 40 mg 07-16 tablet by [facility] of tablet 00:00: 05:59 mouth in [place] 00 :00 the Medical morning. [place] jasmyn 2021-06- No [id number] 40mg Take 1 [facility] n 40 mg 07-16 tablet by [facility] of tablet 00:00: 05:59 mouth in [place] 00 :00 the Medical morning. [place] jasmyn 2021-06- No [id number] 40mg Take 1 [facility] n 40 mg 07-16 tablet by [facility] of tablet 00:00: 05:59 mouth in [place] 00 :00 the Medical morning. [place] jasmyn 2021-06- No [id number] 40mg Take 1 [facility] n 40 mg 07-16 tablet by [facility] of tablet 00:00: 05:59 mouth in [place] 00 :00 the Medical morning. [place] jasmyn 2021-06- No [id number] 40mg Take 1 [facility] n 40 mg 07-16 tablet by [facility] of tablet 00:00: 05:59 mouth in [place] 00 :00 the Medical morning. [place] jasmyn 2021-06- No [id number] 40mg Take 1 [facility] n 40 mg 07-16 tablet by [facility] of tablet 00:00: 05:59 mouth in [place] 00 :00 the Medical morning. [place] jasmyn 2021-06- No [id number] 40mg Take 1 [facility] n 40 mg 07-16 tablet by [facility] of tablet 00:00: 05:59 mouth in [place] 00 :00 the Medical morning. [place] jasmyn 2021-06- No [id number] 40mg Take 1 [facility] n 40 mg 07-16 tablet by [facility] of tablet 00:00: 05:59 mouth in [place] 00 :00 the Medical morning. [place] jasmyn 2021-06- No [id number] 40mg Take 1 [facility] n 40 mg 07-16 tablet by [facility] of tablet 00:00: 05:59 mouth in [place] 00 :00 the Medical morning. [place] jasmyn 2021-06- No [id number] 40mg Take 1 [facility] n 40 mg 07-16 tablet by it[facility] of tablet 00:00: 05:59 mouth in [place] 00 :00 the Medical morning. [place] atoretlly 2021-06- No [id number] 40mg Take 1 [facility] n 40 mg 07-16 tablet by ity of tablet 00:00: 05:59 mouth in [place] 00 :00 the Medical morning. [place] atorvasjackie 2021-06- No [id number] 40mg Take 1 [facility] n 40 mg 07-16 tablet by [facility]y of tablet 00:00: 05:59 mouth in [place] 00 :00 the Medical morning. [place] monica 2021-06- No [id number] 40mg Take 1 [facility] n 40 mg 07-16 tablet by [facility] of tablet 00:00: 05:59 mouth in [place] 00 :00 the Medical morning. [place] monica 2021-06- No [id number] 40mg Take 1 [facility] n 40 mg 07-16 tablet by [facility]y of tablet 00:00: 05:59 mouth in [place] 00 :00 the Medical morning. [place] monica 2021-06- No [id number] 40mg Take 1 [facility] n 40 mg 07-16 tablet by ity of tablet 00:00: 05:59 mouth in [place] 00 :00 the Medical morning. [place] harshavasjackie 2021-06- No [id number] 40mg Take 1 [facility] n 40 mg 07-16 tablet by ity of tablet 00:00: 05:59 mouth in [place] 00 :00 the Medical morning. [place] atorvasta 2021-06- No [id number] 40mg Take 1 [facility] n 40 mg 07-16 tablet by ity of tablet 00:00: 05:59 mouth in [place] 00 :00 the Medical morning. [place] atorvasjackie 2021-06- No [id number] 40mg Take 1 [facility] n 40 mg 07-16 tablet by ity of tablet 00:00: 05:59 mouth in [place] 00 :00 the Medical morning. [place] atorvasjackieti 2021-06- No [id number] 40mg Take 1 [facility] n 40 mg 07-16 tablet by ity of tablet 00:00: 05:59 mouth in [place] 00 :00 the Medical morning. [place] atorvasjackieti 2021-06- No [id number] 40mg Take 1 [facility] n 40 mg 07-16 tablet by ity of tablet 00:00: 05:59 mouth in [place] 00 :00 the Medical morning. [place] atorvastati 2021-06- No [id number] 40mg Take 1 [facility] n 40 mg 07-16 tablet by ity of tablet 00:00: 05:59 mouth in [place] 00 :00 the Medical morning. [place] atorvasjackieti 2021-06- No [id number] 40mg Take 1 [facility] n 40 mg 07-16 tablet by ity of tablet 00:00: 05:59 mouth in [place] 00 :00 the Medical morning. [place] atorvastati 2021-06- No [id number] 40mg Take 1 [facility] n 40 mg 07-16 tablet by ity of tablet 00:00: 05:59 mouth in [place] 00 :00 the Medical morning. [place] atorvasta 2021-06- No [id number] 40mg Take 1 [facility] n 40 mg 07-16 tablet by ity of tablet 00:00: 05:59 mouth in [place] 00 :00 the Medical morning. [place] atorvastati 2021-06- No [id number] 40mg Take 1 [facility] n 40 mg 07-16 tablet by ity of tablet 00:00: 05:59 mouth in [place] 00 :00 the Medical morning. [place] apixaban 2021-06- No 1358 2.5mg Take 1 Unive rs 2.5 mg 07-16 tablet by ity of tablet 00:00: 05:59 mouth in [place] 00 :00 the Medical morning Branch and 1 tablet in the evening. Do all this for 90 days. Indication s: atrial fibrillati on furosemide 2021-06- No [id number] 40mg Take 1 U nivers 40 mg 07-16 tablet by ity of tablet 00:00: 05:59 mouth in [place] 00 :00 the Medical morning Branch for 90 days. apixaban 2021-06- No 1358 2.5mg Take 1 Un[facility] rs 2.5 mg 2-07 tablet by ity of tablet 00:00: 05:59 mouth in [place] 00 :00 the Medical morning Branch and 1 tablet in the evening. Do all this for 90 days. Indication s: atrial fibrillati on furosemide 2021-06- No [id number] 40mg Take 1 U nivers 40 mg 2-07 tablet by ity of tablet 00:00: 05:59 mouth in [place] 00 :00 the Medical morning Branch for 90 days. apixaban 2021-06- No 1358 2.5mg Take 1 Unive rs 2.5 mg 2- tablet by ity of tablet 00:00: 05:59 mouth in [place] 00 :00 the Medical morning Branch and 1 tablet in the evening. Do all this for 90 days. Indication s: atrial fibrillati on furosemide 2021-06- No [id number] 40mg Take 1 U nivers 40 mg 07-16- tablet by ity of tablet 00:00: 05:59 mouth in [place] 00 :00 the Medical morning Branch for 90 days. apixaban 2021-06- No 1358 2.5mg Take 1 Unive rs 2.5 mg 07-16 tablet by ity of tablet 00:00: 05:59 mouth in [place] 00 :00 the Medical morning Branch and 1 tablet in the evening. Do all this for 90 days. Indication s: atrial fibrillati on furosemide 2021-06- No [id number] 40mg Take 1 U nivers 40 mg 07-16-07 tablet by ity of tablet 00:00: 05:59 mouth in [place] 00 :00 the Medical morning Branch for 90 days. apixaban 2021-06- No 1358 2.5mg Take 1 Unive rs 2.5 mg 2-07 tablet by ity of tablet 00:00: 05:59 mouth in [place] 00 :00 the Medical morning Branch and 1 tablet in the evening. Do all this for 90 days. Indication s: atrial fibrillati on furosemide 2021-06- No [id number] 40mg Take 1 U nivers 40 mg 2-07 tablet by ity of tablet 00:00: 05:59 mouth in [place] 00 :00 the [facility] morning [place] for 90 days. apixaban 2021-06- No 1358 2.5mg Take 1 Unive rs 2.5 mg 2-07 tablet by ity of tablet 00:00: 05:59 mouth in [place] 00 :00 the Medical morning Branch and 1 tablet in the evening. Do all this for 90 days. Indication s: atrial fibrillati on furosemide 2021-06- No [id number] 40mg Take 1 U nivers 40 mg 2-07 tablet by ity of tablet 00:00: 05:59 mouth in [place] 00 :00 the [facility] for 90 days. apixaban 2021-06- No 1358 2.5mg Take 1 Unive rs 2.5 mg 2-07 tablet by ity of tablet 00:00: 05:59 mouth in [place] 00 :00 the [facility] morning Branch and 1 tablet in the evening. Do all this for 90 days. Indication s: atrial fibrillati on furosemide 2021-06- No [id number] 40mg Take 1 U nivers 40 mg 07-16- tablet by ity of tablet 00:00: 05:59 mouth in [place] 00 :00 the [facility] morning [place] for 90 days. apixaban 2021-06- No 1358 2.5mg Take 1 Unive rs 2.5 mg 2- tablet by ity of tablet 00:00: 05:59 mouth in [place] 00 :00 the [facility] morning Branch and 1 tablet in the evening. Do all this for 90 days. Indication s: atrial fibrillati on furosemide 2021-06- No [id number] 40mg Take 1 U nivers 40 mg 2-07 tablet by ity of tablet 00:00: 05:59 mouth in [place] 00 :00 the [facility] morning [place] for 90 days. apixaban 2021-06- No 1358 2.5mg Take 1 Unive rs 2.5 mg 2-07 tablet by ity of tablet 00:00: 05:59 mouth in [place] 00 :00 the [facility] morning Branch and 1 tablet in the evening. Do all this for 90 days. Indication s: atrial fibrillati on furosemide 2021-06- No [id number] 40mg Take 1 U nivers 40 mg 07-16- tablet by ity of tablet 00:00: 05:59 mouth in [place] 00 :00 the [facility] for 90 days. apixaban 2021-06- No 1358 2.5mg Take 1 Unive rs 2.5 mg 2- tablet by ity of tablet 00:00: 05:59 mouth in [place] 00 :00 the [facility] morning Branch and 1 tablet in the evening. Do all this for 90 days. Indication s: atrial fibrillati on furosemide 2021-06- No [id number] 40mg Take 1 U nivers 40 mg 2- tablet by ity of tablet 00:00: 05:59 mouth in [place] 00 :00 the [facility] for 90 days. apixaban 2021-06- No 1358 2.5mg Take 1 Unive rs 2.5 mg 2- tablet by ity of tablet 00:00: 05:59 mouth in [place] 00 :00 the [facility] morning Branch and 1 tablet in the evening. Do all this for 90 days. Indication s: atrial fibrillati on furosemide 2021-06- No [id number] 40mg Take 1 U nivers 40 mg 07-16- tablet by ity of tablet 00:00: 05:59 mouth in [place] 00 :00 the [facility] for 90 days. apixaban 2021-06- No 1358 2.5mg Take 1 Unive rs 2.5 mg 07-16- tablet by ity of tablet 00:00: 05:59 mouth in [place] 00 :00 the [facility] morning Branch and 1 tablet in the evening. Do all this for 90 days. Indication s: atrial fibrillati on furosemide 2021-06- No [id number] 40mg Take 1 U nivers 40 mg 07-16- tablet by ity of tablet 00:00: 05:59 mouth in [place] 00 :00 the [facility] for 90 days. apixaban 2021-06- No 1358 2.5mg Take 1 Unive rs 2.5 mg 2-07 tablet by ity of tablet 00:00: 05:59 mouth in [place] 00 :00 the Medical morning Branch and 1 tablet in the evening. Do all this for 90 days. Indication s: atrial fibrillati on furosemide 2021-06- No [id number] 40mg Take 1 U nivers 40 mg 2-07 tablet by ity of tablet 00:00: 05:59 mouth in [place] 00 :00 the Medical morning Branch for 90 days. apixaban 2021-06- No 1358 2.5mg Take 1 Unive rs 2.5 mg 2- tablet by ity of tablet 00:00: 05:59 mouth in [place] 00 :00 the Medical morning Branch and 1 tablet in the evening. Do all this for 90 days. Indication s: atrial fibrillati on furosemide 2021-06- No [id number] 40mg Take 1 U nivers 40 mg 2-07 tablet by ity of tablet 00:00: 05:59 mouth in [place] 00 :00 the Medical morning Branch for 90 days. apixaban 2021-06- No 1358 2.5mg Take 1 Unive rs 2.5 mg 2- tablet by ity of tablet 00:00: 05:59 mouth in [place] 00 :00 the Medical morning Branch and 1 tablet in the evening. Do all this for 90 days. Indication s: atrial fibrillati on furosemide 2021-06- No [id number] 40mg Take 1 U nivers 40 mg 07-16- tablet by ity of tablet 00:00: 05:59 mouth in [place] 00 :00 the Medical morning Branch for 90 days. apixaban 2021-06- No 1358 2.5mg Take 1 Unive rs 2.5 mg 07-16- tablet by ity of tablet 00:00: 05:59 mouth in [place] 00 :00 the Medical morning Branch and 1 tablet in the evening. Do all this for 90 days. Indication s: atrial fibrillati on furosemide 2021-06- No [id number] 40mg Take 1 U nivers 40 mg 2-07 tablet by ity of tablet 00:00: 05:59 mouth in [place] 00 :00 the Medical morning Branch for 90 days. apixaban 2021-06- No 1358 2.5mg Take 1 Unive rs 2.5 mg 2-07 tablet by ity of tablet 00:00: 05:59 mouth in [place] 00 :00 the Medical morning Branch and 1 tablet in the evening. Do all this for 90 days. Indication s: atrial fibrillati on apixaban 2021-06- No 1358 2.5mg Take 1 Unive rs 2.5 mg 2- 03-07 tablet by ity of tablet 00:00: 05:59 mouth in [place] 00 :00 the Medical morning Branch and 1 tablet in the evening. Do all this for 90 days. Indication s: atrial fibrillati on apixaban 2021-06- No 1358 2.5mg Take 1 Unive rs 2.5 mg 2-11 10-07 tablet by ity of tablet 00:00: 05:59 mouth in [place] 00 :00 the Medical morning Branch and 1 tablet in the evening. Do all this for 90 days. Indication s: atrial fibrillati on apixaban 2021-06- No 1358 2.5mg Take 1 Unive rs 2.5 mg 2-07 tablet by ity of tablet 00:00: 05:59 mouth in [place] 00 :00 the Medical morning Branch and 1 tablet in the evening. Do all this for 90 days. Indication s: atrial fibrillati on apixaban 2021-06- No 1358 2.5mg Take 1 Unive rs 2.5 mg 2-07 tablet by ity of tablet 00:00: 05:59 mouth in [place] 00 :00 the Medical morning Branch and 1 tablet in the evening. Do all this for 90 days. Indication s: atrial fibrillati on apixaban 2021-06- No 1358 2.5mg Take 1 Unive rs 2.5 mg 2-11 10-07 tablet by ity of tablet 00:00: 05:59 mouth in [place] 00 :00 the Medical morning Branch and 1 tablet in the evening. Do all this for 90 days. Indication s: atrial fibrillati on apixaban 2021-06- No 1358 2.5mg Take 1 Unive rs 2.5 mg 2- 03-07 tablet by ity of tablet 00:00: 05:59 mouth in [place] 00 :00 the Medical morning Branch and 1 tablet in the evening. Do all this for 90 days. Indication s: atrial fibrillati on apixaban 2021-06- No 1358 2.5mg Take 1 Unive rs 2.5 mg 07-16 tablet by ity of tablet 00:00: 00:00 mouth in [place] 00 :00 the [facility] morning Branch and 1 tablet in the evening. Do all this for 90 days. Indication s: atrial fibrillati on apixaban 2021-06 No 1358 2.5mg Take 1 Unive rs 2.5 mg 07-16 tablet by ity of tablet 00:00: 00:00 mouth in [place] 00 :00 the [facility] and 1 tablet in the evening. Do all this for 90 days. Indication s: atrial fibrillati on carvediloL 2021-06- No [id number] 3.125mg Take 1 Univers 3.125 mg 07-16 tablet by ity o f tablet 00:00: 00:00 mouth in [place] 00 :00 the [facility] and 1 tablet in the evening. Take with meals. furosemide 2021-06- No [id number] 40mg Take 1 U nivers 40 mg 07-16 tablet by ity of tablet 00:00: 00:00 mouth in [place] 00 :00 the [facility] for 90 days. FENTanyl 2021-06 Yes 25ug 25 mcg, Uni vers (SUBLIMAZE 2-05 Slow IV ity of (PF)) 23:48: Push, [place] injection 37 Q5MIN PRN, Medi alise 25 mcg 4 doses, Branch Starting on Sat05/14/22 at 1748, Until Discontinu ed, Routine, Pain (scale 7-10), PACU FENTanyl 2021-06 Yes 25ug 25 mcg, Uni vers (SUBLIMAZE 2-05 Slow IV ity of (PF)) 23:48: Push, [place] injection 37 Q5MIN PRN, Medi alise 25 mcg 4 doses, Branch Starting on Sat05/14/22 at 1748, Until Discontinu ed, Routine, Pain (scale 4-6), PACU FENTanyl 2021-06 No 25ug 25 mcg, Un miracle (SUBLIMAZE 2-05 - Slow IV ity o f (PF)) 23:48: 02:06 Push, [place] injection 37 :37 Q5MIN PRN, Medi alise 25 mcg 4 doses, Branch Starting on Sat05/14/22 at 1748, Until Sat05/15/22 at 2005, Routine, Pain (scale 7-10), PACU FENTanyl PF 2021-06 No 25ug 25 mcg, Un miracle (SUBLIMAZE 07-15 Slow IV ity o f (PF)) 23:48: 02:06 Push, [place] injection 37 :37 Q5MIN PRN, Medi alise 25 mcg 4 doses, Branch Starting on Sat05/14/22 at 1748, Until Sat05/15/22 at 2005, Routine, Pain (scale 4-6), PACU albuterol 2021-06 Yes 2{puff} 2 Puff, Un miracle (VENTOLIN) 07-15 Inhalation ity of inhaler 2 22:44: , Q6HPRN, [place] Puff 07 Starting Medical on [facility] 05/14/22 at 1644, Until Discontinu ed, Routine, Wheezing, Shortness of Breath albuterol 2021-06- No 2{puff} 2 Puff, U nivers (VENTOLIN) 07-15 Inhalation it y of inhaler 2 22:44: 02:06 , Q6HPRN, [place] Puff 07 :37 Starting Medical on [facility] 05/14/22 at 1644, Until Sat05/15/22 at 2005, Routine, Wheezing, Shortness of Breath albuterol 2021-06 Yes 2.5mg 2.5 mg, Univ ers (PROVENTIL) 07-15 Inhalation it y of 2.5 mg /3 22:44: , Q6HPRN, [place] mL (0.083 04 Starting Medica l %) on [facility] nebulizer 05/14/22 at solution 1644, 2.5 mg Until Discontinu ed, Routine, Wheezing albuterol 2021-06 No 2.5mg 2.5 mg, Uni vers (PROVENTIL) 07-15 Inhalation i ty of 2.5 mg /3 22:44: 02:06 , Q6HPRN, [place] mL (0.083 04 :37 Starting Medica l %) on [facility] nebulizer 05/14/22 at solution 1644, 2.5 mg Until Sat05/15/22 at 2006, Routine, Wheezing lidocaine 2021-06- No ONCE INTRA U nivers 1% (PF) 205-14 PROCEDURE, ity o f (XYLOCAINE) 18:57: 22:22 Starting [place] injection 47 :59 on Sat05/14/22 at Branch 1257, Until Sat05/14/22 at 1622, Routine, CV Intraproce dure acetaminoph 2021-06 Yes 1300mg Take 1,300 Univers en (TYLENOL 1-28 mg by ity of ARTHRITIS 09:43: [place] PA[place] 650 03 the Medical mg CR morning Branch tablet and 1,300 mg at noon and 1,300 mg in the evening. acetaminoph 2021-06 Yes 1300mg Take 1,300 Univers en (TYLENOL 1-28 mg by ity of ARTHRITIS 09:43: [place] 650 03 the Medical mg CR morning Branch tablet and 1,300 mg at noon and 1,300 mg in the evening. acetaminoph 2021-06 Yes 1300mg Take 1,300 Univers en (TYLENOL 1-28 mg by ity of ARTHRITIS 09:43: [place] 650 03 the Medical mg CR morning Branch tablet and 1,300 mg at noon and 1,300 mg in the evening. acetaminoph 2021-06 Yes 1300mg Take 1,300 Univers en (TYLENOL 1-28 mg by ity of ARTHRITIS 09:43: [place] 650 03 the Medical mg CR morning Branch tablet and 1,300 mg at noon and 1,300 mg in the evening. acetaminoph 2021-06 Yes 1300mg Take 1,300 Univers en (TYLENOL 1-28 mg by ity of ARTHRITIS 09:43: [place] 650 03 the Medical mg CR morning Branch tablet and 1,300 mg at noon and 1,300 mg in the evening. furosemide 2021-06 Yes [id number] 40mg Take 1 Un miracle 40 mg 1-14 tablet by ity of tablet 00:00: mouth in [place] 00 the Medical morning. Branch diltiazem 2021-06 Yes [id number] 240mg Take 1 Un miracle XR 240 mg 1-14 capsule by ity of 24 hr 00:00: mouth in [place] capsule 00 the Medical morning. Branch furosemide 2021-06 Yes [id number] 40mg Take 1 Un miracle 40 mg 1-14 tablet by ity of tablet 00:00: mouth in [place] 00 the Medical morning. Branch diltiazem 2021-06 Yes [id number] 240mg Take 1 Un miracle XR 240 mg 1-14 capsule by ity of 24 hr 00:00: mouth in [place] capsule 00 the Medical morning. Branch furosemide 2021-06 Yes [id number] 40mg Take 1 Un miracle 40 mg 1-14 tablet by ity of tablet 00:00: mouth in [place] 00 the Medical morning. Branch diltiazem 2021-06 Yes [id number] 240mg Take 1 Un miracle XR 240 mg 1-14 capsule by ity of 24 hr 00:00: mouth in [place] capsule 00 the Medical morning. Branch furosemide 2021-06 Yes [id number] 40mg Take 1 Un miracle 40 mg 1-14 tablet by ity of tablet 00:00: mouth in [place] the Medical morning. Branch diltiazem 2021-06 Yes [id number] 240mg Take 1 Un miracle XR 240 mg 1-14 capsule by ity of 24 hr 00:00: mouth in [place] capsule 00 the Medical morning. Branch furosemide 2021-06 Yes [id number] 40mg Take 1 Un miracle 40 mg 1-14 tablet by ity of tablet 00:00: mouth in [place] the Medical morning. Branch diltiazem 2021-06 Yes [id number] 240mg Take 1 Un miracle XR 240 mg 1-14 capsule by ity of 24 hr 00:00: mouth in [place] capsule 00 the Medical morning. Branch furosemide 2021-06 Yes [id number] 40mg Take 1 Un miracle 40 mg 1-14 tablet by ity of tablet 00:00: mouth in [place] 00 the Medical morning. Branch diltiazem 2021-06 Yes [id number] 240mg Take 1 Un miracle XR 240 mg 1-14 capsule by ity of 24 hr 00:00: mouth in [place] capsule 00 the Medical morning. Branch furosemide 2021-06 Yes [id number] 40mg Take 1 Un miracle 40 mg 1-14 tablet by ity of tablet 00:00: mouth in [place] 00 the Medical morning. Branch diltiazem 2021-06 Yes [id number] 240mg Take 1 Un miracle XR 240 mg 1-14 capsule by ity of 24 hr 00:00: mouth in [place] capsule 00 the Medical morning. Branch furosemide 2021-06 Yes [id number] 40mg Take 1 Un miracle 40 mg 1-14 tablet by ity of tablet 00:00: mouth in [place] the Medical morning. Branch diltiazem 2021-06 Yes [id number] 240mg Take 1 Un miracle XR 240 mg 1-14 capsule by ity of 24 hr 00:00: mouth in [place] capsule 00 the Medical morning. Branch furosemide 2021-06 Yes [id number] 40mg Take 1 Un miracle 40 mg 1-14 tablet by ity of tablet 00:00: mouth in [place] the Medical morning. Branch diltiazem 2021-06 Yes [id number] 240mg Take 1 Un mriacle XR 240 mg 1-14 capsule by ity of 24 hr 00:00: mouth in [place] capsule the Medical morning. Branch atorvastati 2021-06 Yes [id number] 40mg Take 1 Univers n 40 mg 1-01 tablet by ity of tablet 00:00: mouth in [place] the Medical morning. Branch atorvastati 2021-06 Yes [id number] 40mg Take 1 Univers n 40 mg 1-01 tablet by ity of tablet 00:00: mouth in [place] the Medical morning. Branch atorvastati 2021-06 Yes [id number] 40mg Take 1 Univers n 40 mg 1-01 tablet by ity of tablet 00:00: mouth in [place] the Medical morning. Branch atorvastati 2021-06 Yes [id number] 40mg Take 1 Univers n 40 mg 1-01 tablet by ity of tablet 00:00: mouth in [place] the Medical morning. Branch atorvastati 2021-06 Yes [id number] 40mg Take 1 Univers n 40 mg 1-01 tablet by ity of tablet 00:00: mouth in [place] the Medical morning. Branch atorvastati 2021-06 Yes [id number] 40mg Take 1 Univers n 40 mg 1-01 tablet by ity of tablet 00:00: mouth in [place] the Medical morning. Branch atorvastati 2021-06 Yes [id number] 40mg Take 1 Univers n 40 mg 1-01 tablet by ity of tablet 00:00: mouth in [place] 00 the Medical morning. Branch atorvastati 2021-06 Yes [id number] 40mg Take 1 Univers n 40 mg 1- tablet by ity of tablet 00:00: mouth in [place] 00 the Medical morning. Branch atorvastati 2021-06 Yes [id number] 40mg Take 1 Univers n 40 mg - tablet by ity of tablet 00:00: mouth in [place] 00 the Medical morning. Branch atorvastati 2021-06 Yes [id number] 40mg Take 1 Univers n 40 mg - tablet by ity of tablet 00:00: mouth in [place] 00 the Medical morning. Branch atorvastati 2021-06- No [id number] 40mg Take 1 Univers n 40 mg 06-10 tablet by ity of tablet 00:00: 00:00 mouth in [place] 00 :00 the Medical morning. Branch atorvastati 2021-06- No [id number] 40mg Take 1 Univers n 40 mg 06-10 tablet by ity of tablet 00:00: 00:00 mouth in [place] 00 :00 the Medical morning. [place] diltiazem 2021-06 Yes 240mg 240 mg, Univ ers XR 0-18 Oral, ity of (DILT-XR) 14:00: DAILY, [place] capsule 240 00 First dose Me dical mg (after Branch last modificati on) on Sat03/27/22 at 0900, Until Discontinu ed, Routine metoprolol 2021-06 Yes 25mg 25 mg, Unive rs succinate 0-18 Oral, ity of XL (TOPROL 14:00: DAILY, [place] XL) tablet 00 First dose Med ical 25 mg (after Branch last modificati on) on Sat03/27/22 at 0900, Until Discontinu ed, Routine diltiazem 2021-06- No [id number] 240mg Take 1 U nivers XR 240 mg 0-18 11-18 capsule by ity of 24 hr 00:00: 05:59 mouth in [place] capsule 00 :00 the morning Branch for 30 days. furosemide 2021-06- No [id number] 40mg Take 1 U nivers 40 mg 0-18 11-18 tablet by ity of tablet 00:00: 05:59 mouth in [place] 00 :00 the morning Branch for 30 days. diltiazem 2021-06- No [id number] 240mg Take 1 U nivers XR 240 mg 0-18 11-18 capsule by ity of 24 hr 00:00: 05:59 mouth in [place] capsule 00 :00 the Medical morning Branch for 30 days. furosemide 2021-06- No [id number] 40mg Take 1 U nivers 40 mg 0-18 11-18 tablet by ity of tablet 00:00: 05:59 mouth in [place] 00 :00 the Medical morning Branch for 30 days. diltiazem 2021-06- No [id number] 240mg Take 1 U nivers XR 240 mg 0-18 11-18 capsule by ity of 24 hr 00:00: 05:59 mouth in [place] capsule 00 :00 the Medical morning Branch for 30 days. furosemide 2021-06- No [id number] 40mg Take 1 U nivers 40 mg 0-18 11-18 tablet by ity of tablet 00:00: 05:59 mouth in [place] 00 :00 the Medical morning Branch for 30 days. diltiazem 2021-06- No [id number] 240mg Take 1 U nivers XR 240 mg 0-18 11-18 capsule by ity of 24 hr 00:00: 05:59 mouth in [place] capsule 00 :00 the Medical morning Branch for 30 days. furosemide 2021-06- No [id number] 40mg Take 1 U nivers 40 mg 0-18 11-18 tablet by ity of tablet 00:00: 05:59 mouth in [place] 00 :00 the Medical morning Branch for 30 days. diltiazem 2021-06- No [id number] 240mg Take 1 U nivers XR 240 mg 0-18 11-18 capsule by ity of 24 hr 00:00: 05:59 mouth in [place] capsule 00 :00 the Medical morning Branch for 30 days. furosemide 2021-06- No [id number] 40mg Take 1 U nivers 40 mg 0-18 11-18 tablet by ity of tablet 00:00: 05:59 mouth in [place] 00 :00 the Medical morning Branch for 30 days. diltiazem 2021-06- No [id number] 240mg Take 1 U nivers XR 240 mg 0-18 11-18 capsule by ity of 24 hr 00:00: 05:59 mouth in [place] capsule 00 :00 the Medical morning Branch for 30 days. furosemide 2021-06- No [id number] 40mg Take 1 U nivers 40 mg 0-18 11-18 tablet by ity of tablet 00:00: 05:59 mouth in [place] 00 :00 the Medical morning Branch for 30 days. diltiazem 2021-06- No [id number] 240mg Take 1 U nivers XR 240 mg 0-18 11-18 capsule by ity of 24 hr 00:00: 05:59 mouth in [place] capsule 00 :00 the Medical morning Branch for 30 days. furosemide 2021-06- No [id number] 40mg Take 1 U nivers 40 mg 0-18 11-18 tablet by ity of tablet 00:00: 05:59 mouth in [place] 00 :00 the Medical morning Branch for 30 days. diltiazem 2021-06- No [id number] 240mg Take 1 U nivers XR 240 mg 0-18 11-18 capsule by ity of 24 hr 00:00: 05:59 mouth in [place] capsule 00 :00 the [facility] morning Branch for 30 days. furosemide 2021-06- No [id number] 40mg Take 1 U nivers 40 mg 0-18 11-18 tablet by ity of tablet 00:00: 05:59 mouth in [place] 00 :00 the [facility] morning Branch for 30 days. diltiazem 2021-06- No [id number] 240mg Take 1 U nivers XR 240 mg 0-18 11-18 capsule by ity of 24 hr 00:00: 05:59 mouth in [place] capsule 00 :00 the Medical morning Branch for 30 days. furosemide 2021-06- No [id number] 40mg Take 1 U nivers 40 mg 0-18 11-18 tablet by ity of tablet 00:00: 05:59 mouth in [place] 00 :00 the Medical morning Branch for 30 days. diltiazem 2021-06- No [id number] 240mg Take 1 U nivers XR 240 mg 0-18 11-18 capsule by ity of 24 hr 00:00: 05:59 mouth in [place] capsule 00 :00 the Medical morning Branch for 30 days. furosemide 2021-06- No [id number] 40mg Take 1 U nivers 40 mg 0-18 11-18 tablet by ity of tablet 00:00: 05:59 mouth in [place] 00 :00 the Medical morning Branch for 30 days. diltiazem 2021-06- No [id number] 240mg Take 1 U nivers XR 240 mg 0-18 11-18 capsule by ity of 24 hr 00:00: 05:59 mouth in [place] capsule 00 :00 the Medical morning Branch for 30 days. furosemide 2021-06- No [id number] 40mg Take 1 U nivers 40 mg 0-18 11-18 tablet by ity of tablet 00:00: 05:59 mouth in [place] 00 :00 the [facility] morning Branch for 30 days. diltiazem 2021-06- No [id number] 240mg Take 1 U nivers XR 240 mg 0-18 11-18 capsule by ity of 24 hr 00:00: 05:59 mouth in [place] capsule 00 :00 the [facility] morning Branch for 30 days. furosemide 2021-06- No [id number] 40mg Take 1 U nivers 40 mg 0-18 11-18 tablet by ity of tablet 00:00: 05:59 mouth in [place] 00 :00 the [facility] morning [place] for 30 days. diltiazem 2021-06- No [id number] 240mg Take 1 U nivers XR 240 mg 0-18 11-14 capsule by ity of 24 hr 00:00: 00:00 mouth in [place] capsule 00 :00 the [facility] morning Branch for 30 days. furosemide 2021-06- No [id number] 40mg Take 1 U nivers 40 mg 0-18 11-14 tablet by ity of tablet 00:00: 00:00 mouth in [place] 00 :00 the [facility] morning Branch for 30 days. diltiazem 2021-06- No [id number] 240mg Take 1 U nivers XR 240 mg 0-18 11-14 capsule by ity of 24 hr 00:00: 00:00 mouth in [place] capsule 00 :00 the Medical morning Branch for 30 days. furosemide 2021-06- No [id number] 40mg Take 1 U nivers 40 mg 0-18 11-14 tablet by ity of tablet 00:00: 00:00 mouth in [place] 00 :00 the Medical morning Branch for 30 days. diltiazem 2021-062- No 120mg 120 mg, Uni vers XR 0-17 10-17 Oral, ity of (DILT-XR) 14:30: 13:43 ONCE, 1 [place] capsule 120 00 :00 dose, On Medi alise mg [facility] 03/26/22 at 0930, Routine tiotropium 2021-06 Yes 18ug 18 mcg, Univ ers (SPIRIVA) 0-17 Inhalation ity of inhalation 14:00: , DAILY, [place] 18 mcg 00 First dose Medical on [facility] 03/26/22 at 0900, Until Discontinu ed, Routine furosemide 2021-06 Yes 40mg 40 mg, Unive rs (LASIX) 0-17 Oral, ity of tablet 40 14:00: DAILY, [place] mg 00 First dose Medical on [facility] 03/26/22 at 0900, Until Discontinu ed, Routine cetirizine 2021-06 Yes 5mg 5 mg, Univer s (ZYRTEC) 0-17 Oral, ity of tablet 5 mg 14:00: DAILY, [place] 00 First dose Medical on [facility] 03/26/22 at 0900, Until Discontinu ed, Routine atorvastati 2021-06 Yes 40mg 40 mg, Univ ers n (LIPITOR) 0-17 Oral, ity of tablet 40 14:00: DAILY, [place] mg 00 First dose Medical on [facility] 03/26/22 at 0900, Until Discontinu ed, Routine aspirin EC 2021-06 Yes 81mg 81 mg, Unive rs tablet 81 0-17 Oral, ity of mg 14:00: DAILY, [place] 00 First dose Medical on [facility] 03/26/22 at 0900, Until Discontinu ed, Routine diltiazem 2021-06 No 120mg 120 mg, Uni vers XR 03-26 Oral, ity of (DILT-XR) 14:00: 13:22 DAILY, [place] capsule 120 00 :18 First dose Me dical mg on [facility] 03/26/22 at 0900, Until Discontinu ed, Routine metoprolol 2021-06 No 25mg 25 mg, Univ ers succinate 0-03-26 Oral, ity of XL (TOPROL 10:30: 10:29 DAILY, [place] XL[place] tablet 00 :52 First dose Med ical 25 mg (after Branch last modificati on) on [facility] 03/26/22 at 0530, Until Discontinu ed, Routine fluticasone 2021-06 Yes 2{spray 2 [place], Univers propionate 0-17 } Nasal, ity of 50 07:15: DAILY, [place] mcg/actuati 00 First dose Me dical on nasal (after Branch spray 2 last [place] modificati on) on Sat03/26/22 at 0215, Until Discontinu ed, Routine traZODone 2021-06 Yes 25mg 25 mg, Univer s (DESYREL) 0-17 Oral, QHS, ity of tablet 25 02:00: First dose [place] mg 00 on [facility] 03/25/22 Branch at 2100, Until Discontinu ed, Routine apixaban 2021-06 Yes 1358 2.5mg 2.5 mg, Unive rs (ELIQUIS) 0-17 Oral, BID, ity of tablet 2.5 01:00: First dose [place] mg 00 on [facility] 03/25/22 Branch at 2000, Until Discontinu ed, Routine
Indicatio ns: Non-Valvul ar Atrial Fibrillati on nicotine 2021-06 Yes 1{patch 1 Patch, Un miracle (NICODERM) 0-16 } Topical, ity o f 21 mg/24 hr 23:00: Administer [place] patch 1 00 over 24 Medical Patch Hours, Branch Q24H, First dose on [place] 03/25/22 at 1800, Until Discontinu ed, Routine acetaminoph 2021-06 Yes 650mg 650 mg, Un miracle en 0-16 Oral, ity of (TYLENOL) 17:21: Q6HPRN, [place] tablet 650 55 Starting Medic al mg on [facility] 03/25/22 at 1221, Until Discontinu ed, Routine, Pain (scale 1-3) ketamine 2021-06- No 20mg 20 mg, Univer s (KETALAR) 0-16 10-16 Slow IV ity of injection 16:45: 15:46 [place], [place] 20 mg 00 :00 ONCE, 1 Medical dose, On [facility] 03/25/22 at 1145, Routine NaCl 0.9% 2021-06- No 1000mL at 999 Uni vers (NS) bolus 0-16 10-16 mL/hr, ity of infusion 16:30: 15:34 1,000 mL, [place] 1,000 mL 00 :00 IV Medical Infusion, Branch ONCE, 1 dose, On 03/25/22 at 1130, STAT furosemide 2021-06 Yes [id number] 40mg Take 1 Univers 40 mg 0-10 tablet by ity of tablet 00:00: mouth in [place] 00 the Medical morning. Branch furosemide 2021-06 Yes [id number] 40mg Take 1 Univers 40 mg 0-10 tablet by ity of tablet 00:00: mouth in [place] 00 the Medical morning. Branch furosemide 2021-06 Yes [id number] 40mg Take 1 Univers 40 mg 0-10 tablet by ity of tablet 00:00: mouth in [place] 00 the Medical morning. Branch furosemide 2021-06- No [id number] 40mg Take 1 Univers 40 mg 0-10 10-17 tablet by ity of tablet 00:00: 00:00 mouth in [place] 00 :00 the Medical morning. Branch traZODone 2021-06 Yes [id number] 25mg Take 0.5 Univers 50 mg 0-07 tablets by ity of tablet 00:00: mouth at [place] [address] bedtime. Medical Branch traZODone 2021-06 Yes [id number] 25mg Take 0.5 Univers 50 mg 0-07 tablets by ity of tablet 00:00: mouth at [place] [address] bedtime. Medical Branch traZODone 2021-06 Yes [id number] 25mg Take 0.5 Univers 50 mg 0-07 tablets by ity of tablet 00:00: mouth at [place] [address] bedtime. Medical Branch traZODone 2021-06 Yes [id number] 25mg Take 0.5 Univers 50 mg 0-07 tablets by ity of tablet 00:00: mouth at [place] 00 bedtime. Medical Branch traZODone 2021-06 Yes [id number] 25mg Take 0.5 Univers 50 mg 0-07 tablets by ity of tablet 00:00: mouth at [place] 00 bedtime. Medical Branch traZODone 2021-06 Yes [id number] 25mg Take 0.5 Univers 50 mg 0-07 tablets by ity of tablet 00:00: mouth at [place] [address] bedtime. Medical [place] traZODone 2021-06 Yes [id number] 25mg Take 0.5 Univers 50 mg 0-07 tablets by ity of tablet 00:00: mouth at [place] [address] bedtime. Medical Branch traZODone 2021-06 Yes [id number] 25mg Take 0.5 Univers 50 mg 0-07 tablets by ity of tablet 00:00: mouth at [place] [address] bedtime. Medical Branch traZODone 2021-06 Yes [id number] 25mg Take 0.5 Univers 50 mg 0-07 tablets by ity of tablet 00:00: mouth at [place] [address] bedtime. Medical Branch traZODone 2021-06 Yes [id number] 25mg Take 0.5 Univers 50 mg 0-07 tablets by ity of tablet 00:00: mouth at [place] [address] bedtime. Medical Branch traZODone 2021-06 Yes [id number] 25mg Take 0.5 Univers 50 mg 0-07 tablets by ity of tablet 00:00: mouth at [place] [address] bedtime. [facility] Branch traZODone 2021-06 Yes [id number] 25mg Take 0.5 Univers 50 mg 0-07 tablets by ity of tablet 00:00: mouth at [place] [address] bedtime. [facility] Branch traZODone 2021-06 Yes [id number] 25mg Take 0.5 Univers 50 mg 0-07 tablets by ity of tablet 00:00: mouth at [place] [address] bedtime. [facility] Branch traZODone 2021-06 Yes [id number] 25mg Take 0.5 Univers 50 mg 0-07 tablets by ity of tablet 00:00: mouth at [place] [address] bedtime. [facility] Branch traZODone 2021-06 Yes [id number] 25mg Take 0.5 Univers 50 mg 0-07 tablets by ity of tablet 00:00: mouth at [place] [address] bedtime. Medical Branch traZODone 2021-06 Yes [id number] 25mg Take 0.5 Univers 50 mg 0-07 tablets by ity of tablet 00:00: mouth at [place] [address] bedtime. Medical Branch traZODone 2021-06 Yes [id number] 25mg Take 0.5 Univers 50 mg 0-07 tablets by ity of tablet 00:00: mouth at [place] [address] bedtime. [facility] Branch traZODone 2021-06 Yes [id number] 25mg Take 0.5 Univers 50 mg 0-07 tablets by ity of tablet 00:00: mouth at [place] [address] bedtime. [facility] Branch traZODone 2021-06 Yes [id number] 25mg Take 0.5 Univers 50 mg 0-07 tablets by ity of tablet 00:00: mouth at [place] [address] bedtime. [facility] Branch traZODone 2021-06 Yes [id number] 25mg Take 0.5 Univers 50 mg 0-07 tablets by ity of tablet 00:00: mouth at [place] [address] bedtime. Medical Branch traZODone 2021-06 Yes [id number] 25mg Take 0.5 Univers 50 mg 0-07 tablets by ity of tablet 00:00: mouth at [place] [address] bedtime. Medical Branch traZODone 2021-06 Yes [id number] 25mg Take 0.5 Univers 50 mg 0-07 tablets by ity of tablet 00:00: mouth at [place] [address] bedtime. [facility] Branch traZODone 2021-06 Yes [id number] 25mg Take 0.5 Univers 50 mg 0-07 tablets by ity of tablet 00:00: mouth at [place] [address] bedtime. [facility] Branch traZODone 2021-06 Yes [id number] 25mg Take 0.5 Univers 50 mg 0-07 tablets by ity of tablet 00:00: mouth at [place] [address] bedtime. Medical Branch traZODone 2021-06 Yes [id number] 25mg Take 0.5 Univers 50 mg 0-07 tablets by ity of tablet 00:00: mouth at [place] [address] bedtime. Medical Branch traZODone 2021-06 Yes [id number] 25mg Take 0.5 Univers 50 mg 0-07 tablets by ity of tablet 00:00: mouth at [place] [address] bedtime. Medical Branch traZODone 2021-06 Yes [id number] 25mg Take 0.5 Univers 50 mg 0-07 tablets by ity of tablet 00:00: mouth at [place] [address] bedtime. Medical Branch traZODone 2021-06 Yes [id number] 25mg Take 0.5 Univers 50 mg 0-07 tablets by ity of tablet 00:00: mouth at [place] [address] bedtime. Medical Branch traZODone 2021-06 Yes [id number] 25mg Take 0.5 Univers 50 mg 0-07 tablets by ity of tablet 00:00: mouth at [place] [address] bedtime. [facility] Branch traZODone 2021-06 Yes [id number] 25mg Take 0.5 Univers 50 mg 0-07 tablets by ity of tablet 00:00: mouth at [place] [address] bedtime. Medical Branch traZODone 2021-06 Yes [id number] 25mg Take 0.5 Univers 50 mg 0-07 tablets by ity of tablet 00:00: mouth at [place] [address] bedtime. Medical Branch traZODone 2021-06 Yes [id number] 25mg Take 0.5 Univers 50 mg 0-07 tablets by ity of tablet 00:00: mouth at [place] [address] bedtime. Medical Branch traZODone 2021-06 Yes [id number] 25mg Take 0.5 Univers 50 mg 0-07 tablets by ity of tablet 00:00: mouth at [place] [address] bedtime. Medical Branch traZODone 2021-06 Yes [id number] 25mg Take 0.5 Univers 50 mg 0-07 tablets by ity of tablet 00:00: mouth at [place] [address] bedtime. Medical Branch traZODone 2021-06 Yes [id number] 25mg Take 0.5 Univers 50 mg 0-07 tablets by ity of tablet 00:00: mouth at [place] [address] bedtime. Medical Branch traZODone 2021-06 Yes [id number] 25mg Take 0.5 Univers 50 mg 0-07 tablets by ity of tablet 00:00: mouth at [place] [address] bedtime. [facility] traZODone 2021-06 Yes [id number] 25mg Take 0.5 [facility] 50 mg 0-07 tablets by [facility] of tablet 00:00: mouth at [place] [address] bedtime. [facility] traZODone 2021-06 Yes [id number] 25mg Take 0.5 [facility] 50 mg 0-07 tablets by it[facility] of tablet 00:00: mouth at [place] [address] bedtime. [facility] traZODone 2021-06 Yes [id number] 25mg Take 0.5 [facility] 50 mg 0-07 tablets by it[facility] of tablet 00:00: mouth at [place] [address] bedtime. [facility] traZODone 2021-06 Yes [id number] 25mg Take 0.5 [facility] 50 mg 0-07 tablets by ity of tablet 00:00: mouth at [place] [address] bedtime. [facility] traZODone 2021-06 Yes [id number] 25mg Take 0.5 [facility] 50 mg 0-07 tablets by ity of tablet 00:00: mouth at [place] [address] bedtime. [facility] traZODone 2021-06 Yes [id number] 25mg Take 0.5 [facility] 50 mg 0-07 tablets by ity of tablet 00:00: mouth at [place] [address] bedtime. [facility] traZODone 2021-06 Yes [id number] 25mg Take 0.5 [facility] 50 mg 0-07 tablets by ity of tablet 00:00: mouth at [place] 00 bedtime. [facility] traZODone 2021-06 Yes [id number] 25mg Take 0.5 [facility] 50 mg 0-07 tablets by ity of tablet 00:00: mouth at [place] 00 bedtime. [facility] traZODone 2021-06 Yes [id number] 25mg Take 0.5 [facility] 50 mg 0-07 tablets by ity of tablet 00:00: mouth at [place] 00 bedtime. [facility] traZODone 2021-06 Yes [id number] 25mg Take 0.5 [facility] 50 mg 0-07 tablets by ity of tablet 00:00: mouth at [place] [address] bedtime. [facility] traZODone 2021-06 Yes [id number] 25mg Take 0.5 [facility] 50 mg 0-07 tablets by ity of tablet 00:00: mouth at [place] [address] bedtime. [facility] traZODone 2021-06 Yes [id number] 25mg Take 0.5 [facility] 50 mg 0-07 tablets by ity of tablet 00:00: mouth at [place] [address] bedtime. [facility] bumetanide 2021-06 Yes [id number] .5mg Take 1 Un mriacle 0.5 mg 0-07 tablet by ity of tablet 00:00: mouth in [place] the Medical morning. [place] traZODone 2021-06 Yes [id number] 25mg Take 0.5 [facility] 50 mg 0-07 tablets by ity of tablet 00:00: mouth at [place] 00 bedtime. [facility] bumetanide 2021-06 Yes [id number] .5mg Take 1 Un miracle 0.5 mg 0-07 tablet by ity of tablet 00:00: mouth in [place] 00 the Medical morning. [place] traZODone 2021-06 Yes [id number] 25mg Take 0.5 [facility] 50 mg 0-07 tablets by ity of tablet 00:00: mouth at [place] 00 bedtime. [facility] traZODone 2021-06 Yes [id number] 25mg Take 0.5 [facility] 50 mg 0-07 tablets by ity of tablet 00:00: mouth at [place] [address] bedtime. [facility] traZODone 2021-06 Yes [id number] 25mg Take 0.5 [facility] 50 mg 0-07 tablets by ity of tablet 00:00: mouth at [place] [address] bedtime. [facility] traZODone 2021-06 Yes [id number] 25mg Take 0.5 [facility] 50 mg 0-07 tablets by ity of tablet 00:00: mouth at [place] [address] bedtime. [facility] traZODone 2021-06 Yes [id number] 25mg Take 0.5 [facility] 50 mg 0-07 tablets by ity of tablet 00:00: mouth at [place] [address] bedtime. [facility] traZODone 2021-06 Yes [id number] 25mg Take 0.5 [facility] 50 mg 0-07 tablets by ity of tablet 00:00: mouth at [place] [address] bedtime. [facility] traZODone 2021-06 Yes [id number] 25mg Take 0.5 [facility] 50 mg 0-07 tablets by ity of tablet 00:00: mouth at [place] [address] bedtime. [facility] traZODone 2021-06 Yes [id number] 25mg Take 0.5 [facility] 50 mg 0-07 tablets by ity of tablet 00:00: mouth at [place] [address] bedtime. [facility] traZODone 2021-06 Yes [id number] 25mg Take 0.5 [facility] 50 mg 0-07 tablets by ity of tablet 00:00: mouth at [place] [address] bedtime. [facility] traZODone 2021-06 Yes [id number] 25mg Take 0.5 [facility] 50 mg 0-07 tablets by ity of tablet 00:00: mouth at [place] [address] bedtime. [facility] traZODone 2021-06 Yes [id number] 25mg Take 0.5 [facility] 50 mg 0-07 tablets by [facility]y of tablet 00:00: mouth at [place] [address] bedtime. [facility] traZODone 2021-06 Yes [id number] 25mg Take 0.5 [facility] 50 mg 0-07 tablets by ity of tablet 00:00: mouth at [place] [address] bedtime. [facility] traZODone 2021-06 Yes [id number] 25mg Take 0.5 [facility] 50 mg 0-07 tablets by ity of tablet 00:00: mouth at [place] [address] bedtime. [facility] traZODone 2021-06 Yes [id number] 25mg Take 0.5 [facility] 50 mg 0-07 tablets by ity of tablet 00:00: mouth at [place] [address] bedtime. [facility] traZODone 2021-06 Yes [id number] 25mg Take 0.5 [facility] 50 mg 0-07 tablets by ity of tablet 00:00: mouth at [place] [address] bedtime. [facility] traZODone 2021-06 Yes [id number] 25mg Take 0.5 [facility] 50 mg 0-07 tablets by [facility]y of tablet 00:00: mouth at [place] [address] bedtime. [facility] traZODone 2021-06 Yes [id number] 25mg Take 0.5 [facility] 50 mg 0-07 tablets by [facility]y of tablet 00:00: mouth at [place] [address] bedtime. [facility] traZODone 2021-06 Yes [id number] 25mg Take 0.5 [facility] 50 mg 0-07 tablets by ity of tablet 00:00: mouth at [place] [address] bedtime. [facility] traZODone 2021-06 Yes [id number] 25mg Take 0.5 [facility] 50 mg 0-07 tablets by ity of tablet 00:00: mouth at [place] [address] bedtime. [facility] traZODone 2021-06 Yes [id number] 25mg Take 0.5 [facility] 50 mg 0-07 tablets by ity of tablet 00:00: mouth at [place] [address] bedtime. [facility] traZODone 2021-06 Yes [id number] 25mg Take 0.5 [facility] 50 mg 0-07 tablets by it[facility] of tablet 00:00: mouth at [place] [address] bedtime. [facility] traZODone 2021-06 Yes [id number] 25mg Take 0.5 [facility] 50 mg 0-07 tablets by ity of tablet 00:00: mouth at [place] [address] bedtime. [facility] traZODone 2021-06 Yes [id number] 25mg Take 0.5 [facility] 50 mg 0-07 tablets by ity of tablet 00:00: mouth at [place] [address] bedtime. [facility] traZODone 2021-06 Yes [id number] 25mg Take 0.5 [facility] 50 mg 0-07 tablets by [facility]y of tablet 00:00: mouth at [place] [address] bedtime. [facility] traZODone 2021-06 Yes [id number] 25mg Take 0.5 [facility] 50 mg 0-07 tablets by it[facility] of tablet 00:00: mouth at [place] [address] bedtime. [facility] traZODone 2021-06 Yes [id number] 25mg Take 0.5 [facility] 50 mg 0-07 tablets by it[facility] of tablet 00:00: mouth at [place] [address] bedtime. [facility] traZODone 2021-06 Yes [id number] 25mg Take 0.5 [facility] 50 mg 0-07 tablets by ity of tablet 00:00: mouth at [place] 00 bedtime. [facility] traZODone 2021-06 Yes [id number] 25mg Take 0.5 [facility] 50 mg 0-07 tablets by ity of tablet 00:00: mouth at [place] [address] bedtime. [facility] traZODone 2021-06 Yes [id number] 25mg Take 0.5 [facility] 50 mg 0-07 tablets by ity of tablet 00:00: mouth at [place] [address] bedtime. [facility] traZODone 2021-06 Yes [id number] 25mg Take 0.5 [facility] 50 mg 0-07 tablets by ity of tablet 00:00: mouth at [place] [address] bedtime. [facility] traZODone 2021-06 Yes [id number] 25mg Take 0.5 [facility] 50 mg 0-07 tablets by ity of tablet 00:00: mouth at [place] [address] bedtime. [facility] traZODone 2021-06 Yes [id number] 25mg Take 0.5 [facility] 50 mg 0-07 tablets by ity of tablet 00:00: mouth at [place] [address] bedtime. [facility] traZODone 2021-06 Yes [id number] 25mg Take 0.5 [facility] 50 mg 0-07 tablets by ity of tablet 00:00: mouth at [place] [address] bedtime. [facility] traZODone 2021-06 Yes [id number] 25mg Take 0.5 [facility] 50 mg 0-07 tablets by ity of tablet 00:00: mouth at [place] [address] bedtime. [facility] traZODone 2021-06 Yes [id number] 25mg Take 0.5 [facility] 50 mg 0-07 tablets by ity of tablet 00:00: mouth at [place] [address] bedtime. [facility] traZODone 2021-06 Yes [id number] 25mg Take 0.5 [facility] 50 mg 0-07 tablets by ity of tablet 00:00: mouth at [place] [address] bedtime. [facility] traZODone 2021-06 Yes [id number] 25mg Take 0.5 [facility] 50 mg 0-07 tablets by ity of tablet 00:00: mouth at [place] [address] bedtime. [facility] traZODone 2021-06 Yes [id number] 25mg Take 0.5 [facility] 50 mg 0-07 tablets by it[facility] of tablet 00:00: mouth at [place] bedtime. [facility] traZODone 2021-06 Yes [id number] 25mg Take 0.5 [facility] 50 mg 0-07 tablets by ity of tablet 00:00: mouth at [place] [address] bedtime. [facility] traZODone 2021-06 Yes [id number] 25mg Take 0.5 [facility] 50 mg 0-07 tablets by ity of tablet 00:00: mouth at [place] [address] bedtime. [facility] traZODone 2021-06 Yes [id number] 25mg Take 0.5 [facility] 50 mg 0-07 tablets by ity of tablet 00:00: mouth at [place] [address] bedtime. [facility] traZODone 2021-06 Yes [id number] 25mg Take 0.5 [facility] 50 mg 0-07 tablets by ity of tablet 00:00: mouth at [place] [address] bedtime. [facility] traZODone 2021-06 Yes [id number] 25mg Take 0.5 [facility] 50 mg 0-07 tablets by ity of tablet 00:00: mouth at [place] [address] bedtime. [facility] traZODone 2021-06 Yes [id number] 25mg Take 0.5 [facility] 50 mg 0-07 tablets by ity of tablet 00:00: mouth at [place] [address] bedtime. [facility] traZODone 2021-06 Yes [id number] 25mg Take 0.5 [facility] 50 mg 0-07 tablets by ity of tablet 00:00: mouth at [place] [address] bedtime. [facility] traZODone 2021-06 Yes [id number] 25mg Take 0.5 [facility] 50 mg 0-07 tablets by ity of tablet 00:00: mouth at [place] [address] bedtime. [facility] traZODone 2021-06 Yes [id number] 25mg Take 0.5 [facility] 50 mg 0-07 tablets by ity of tablet 00:00: mouth at [place] [address] bedtime. [facility] traZODone 2021-06 Yes [id number] 25mg Take 0.5 [facility] 50 mg 0-07 tablets by ity of tablet 00:00: mouth at [place] [address] bedtime. [facility] traZODone 2021-06 Yes [id number] 25mg Take 0.5 [facility] 50 mg 0-07 tablets by ity of tablet 00:00: mouth at [place] [address] bedtime. [facility] traZODone 2021-06 Yes [id number] 25mg Take 0.5 [facility] 50 mg 0-07 tablets by ity of tablet 00:00: mouth at [place] [address] bedtime. [facility] traZODone 2021-06 Yes [id number] 25mg Take 0.5 [facility] 50 mg 0-07 tablets by ity of tablet 00:00: mouth at [place] [address] bedtime. [facility] traZODone 2021-06 Yes [id number] 25mg Take 0.5 [facility] 50 mg 0-07 tablets by ity of tablet 00:00: mouth at [place] [address] bedtime. [facility] traZODone 2021-06 Yes [id number] 25mg Take 0.5 [facility] 50 mg 0-07 tablets by [facility] of tablet 00:00: mouth at [place] [address] bedtime. [facility] traZODone 2021-06 Yes [id number] 25mg Take 0.5 [facility] 50 mg 0-07 tablets by ity of tablet 00:00: mouth at [place] [address] bedtime. [facility] traZODone 2021-06 Yes [id number] 25mg Take 0.5 [facility] 50 mg 0-07 tablets by ity of tablet 00:00: mouth at [place] [address] bedtime. [facility] traZODone 2021-06 Yes [id number] 25mg Take 0.5 [facility] 50 mg 0-07 tablets by ity of tablet 00:00: mouth at [place] [address] bedtime. [facility] traZODone 2021-06 Yes [id number] 25mg Take 0.5 [facility] 50 mg 0-07 tablets by ity of tablet 00:00: mouth at [place] [address] bedtime. [facility] traZODone 2021-06 Yes [id number] 25mg Take 0.5 [facility] 50 mg 0-07 tablets by ity of tablet 00:00: mouth at [place] [address] bedtime. [facility] traZODone 2021-06 Yes [id number] 25mg Take 0.5 [facility] 50 mg 0-07 tablets by ity of tablet 00:00: mouth at [place] [address] bedtime. [facility] traZODone 2021-06 Yes [id number] 25mg Take 0.5 [facility] 50 mg 0-07 tablets by ity of tablet 00:00: mouth at [place] [address] bedtime. [facility] traZODone 2021-06 Yes [id number] 25mg Take 0.5 [facility] 50 mg 0-07 tablets by it[facility] of tablet 00:00: mouth at [place] [address] bedtime. [facility] traZODone 2021-06 Yes [id number] 25mg Take 0.5 [facility] 50 mg 0-07 tablets by ity of tablet 00:00: mouth at [place] [address] bedtime. [facility] traZODone 2021-06 Yes [id number] 25mg Take 0.5 [facility] 50 mg 0-07 tablets by ity of tablet 00:00: mouth at [place] [address] bedtime. [facility] traZODone 2021-06 Yes [id number] 25mg Take 0.5 [facility] 50 mg 0-07 tablets by ity of tablet 00:00: mouth at [place] [address] bedtime. [facility] traZODone 2021-06 Yes [id number] 25mg Take 0.5 [facility] 50 mg 0-07 tablets by ity of tablet 00:00: mouth at [place] [address] bedtime. [facility] traZODone 2021-06 Yes [id number] 25mg Take 0.5 [facility] 50 mg 0-07 tablets by [facility] of tablet 00:00: mouth at [place] [address] bedtime. [facility] traZODone 2021-06 Yes [id number] 25mg Take 0.5 [facility] 50 mg 0-07 tablets by [facility]y of tablet 00:00: mouth at [place] [address] bedtime. [facility] traZODone 2021-06 Yes [id number] 25mg Take 0.5 [facility] 50 mg 0-07 tablets by ity of tablet 00:00: mouth at [place] [address] bedtime. [facility] traZODone 2021-06 Yes [id number] 25mg Take 0.5 [facility] 50 mg 0-07 tablets by ity of tablet 00:00: mouth at [place] [address] bedtime. [facility] traZODone 2021-06 Yes [id number] 25mg Take 0.5 [facility] 50 mg 0-07 tablets by ity of tablet 00:00: mouth at [place] [address] bedtime. [facility] traZODone 2021-06 Yes [id number] 25mg Take 0.5 [facility] 50 mg 0-07 tablets by [facility]y of tablet 00:00: mouth at [place] [address] bedtime. [facility] traZODone 2021-06 Yes [id number] 25mg Take 0.5 [facility] 50 mg 0-07 tablets by [facility]y of tablet 00:00: mouth at [place] [address] bedtime. [facility] traZODone 2021-06 Yes [id number] 25mg Take 0.5 [facility] 50 mg 0-07 tablets by ity of tablet 00:00: mouth at [place] [address] bedtime. [facility] traZODone 2021-06 Yes [id number] 25mg Take 0.5 [facility] 50 mg 0-07 tablets by ity of tablet 00:00: mouth at [place] [address] bedtime. [facility] traZODone 2021-06 Yes [id number] 25mg Take 0.5 [facility] 50 mg 0-07 tablets by ity of tablet 00:00: mouth at [place] [address] bedtime. [facility] traZODone 2021-06 Yes [id number] 25mg Take 0.5 [facility] 50 mg 0-07 tablets by [facility]y of tablet 00:00: mouth at [place] [address] bedtime. [facility] traZODone 2021-06 Yes [id number] 25mg Take 0.5 [facility] 50 mg 0-07 tablets by [facility] of tablet 00:00: mouth at [place] [address] bedtime. [facility] traZODone 2021-06 Yes [id number] 25mg Take 0.5 [facility] 50 mg 0-07 tablets by [facility] of tablet 00:00: mouth at [place] [address] bedtime. [facility] traZODone 2021-06 Yes [id number] 25mg Take 0.5 [facility] 50 mg 0-07 tablets by [facility]y of tablet 00:00: mouth at [place] [address] bedtime. [facility] traZODone 2021-06 Yes [id number] 25mg Take 0.5 [facility] 50 mg 0-07 tablets by ity of tablet 00:00: mouth at [place] [address] bedtime. [facility] traZODone 2021-06 Yes [id number] 25mg Take 0.5 [facility] 50 mg 0-07 tablets by ity of tablet 00:00: mouth at [place] [address] bedtime. [facility] traZODone 2021-06 Yes [id number] 25mg Take 0.5 [facility] 50 mg 0-07 tablets by ity of tablet 00:00: mouth at [place] [address] bedtime. [facility] traZODone 2021-06 Yes [id number] 25mg Take 0.5 [facility] 50 mg 0-07 tablets by [facility]y of tablet 00:00: mouth at [place] [address] bedtime. [facility] traZODone 2021-06 Yes [id number] 25mg Take 0.5 [facility] 50 mg 0-07 tablets by ity of tablet 00:00: mouth at [place] [address] bedtime. [facility] traZODone 2021-06 Yes [id number] 25mg Take 0.5 [facility] 50 mg 0-07 tablets by [facility]y of tablet 00:00: mouth at [place] [address] bedtime. [facility] traZODone 2021-06 Yes [id number] 25mg Take 0.5 [facility] 50 mg 0-07 tablets by [facility]y of tablet 00:00: mouth at [place] [address] bedtime. [facility] traZODone 2021-06 Yes [id number] 25mg Take 0.5 [facility] 50 mg 0-07 tablets by [facility] of tablet 00:00: mouth at [place] [address] bedtime. [facility] traZODone 2021-06 Yes [id number] 25mg Take 0.5 [facility] 50 mg 0-07 tablets by ity of tablet 00:00: mouth at [place] [address] bedtime. [facility] traZODone 2021-06 Yes [id number] 25mg Take 0.5 [facility] 50 mg 0-07 tablets by [facility]y of tablet 00:00: mouth at [place] [address] bedtime. [facility] traZODone 2021-06 Yes [id number] 25mg Take 0.5 [facility] 50 mg 0-07 tablets by ity of tablet 00:00: mouth at [place] [address] bedtime. [facility] traZODone 2021-06 Yes [id number] 25mg Take 0.5 [facility] 50 mg 0-07 tablets by [facility]y of tablet 00:00: mouth at [place] [address] bedtime. [facility] traZODone 2021-06 Yes [id number] 25mg Take 0.5 [facility] 50 mg 0-07 tablets by ity of tablet 00:00: mouth at [place] [address] bedtime. [facility] traZODone 2021-06 Yes [id number] 25mg Take 0.5 [facility] 50 mg 0-07 tablets by ity of tablet 00:00: mouth at [place] [address] bedtime. [facility] traZODone 2021-06 Yes [id number] 25mg Take 0.5 [facility] 50 mg 0-07 tablets by ity of tablet 00:00: mouth at [place] [address] bedtime. [facility] traZODone 2021-06 Yes [id number] 25mg Take 0.5 [facility] 50 mg 0-07 tablets by ity of tablet 00:00: mouth at [place] [address] bedtime. [facility] traZODone 2021-06 Yes [id number] 25mg Take 0.5 [facility] 50 mg 0-07 tablets by ity of tablet 00:00: mouth at [place] [address] bedtime. [facility] traZODone 2021-06 Yes [id number] 25mg Take 0.5 [facility] 50 mg 0-07 tablets by ity of tablet 00:00: mouth at [place] [address] bedtime. [facility] traZODone 2021-06 Yes [id number] 25mg Take 0.5 [facility] 50 mg 0-07 tablets by [facility]y of tablet 00:00: mouth at [place] [address] bedtime. [facility] traZODone 2021-06 Yes [id number] 25mg Take 0.5 [facility] 50 mg 0-07 tablets by ity of tablet 00:00: mouth at [place] [address] bedtime. [facility] traZODone 2021-06 Yes [id number] 25mg Take 0.5 [facility] 50 mg 0-07 tablets by ity of tablet 00:00: mouth at [place] [address] bedtime. [facility] traZODone 2021-06 Yes [id number] 25mg Take 0.5 [facility] 50 mg 0-07 tablets by ity of tablet 00:00: mouth at [place] [address] bedtime. [facility] traZODone 2021-06 Yes [id number] 25mg Take 0.5 [facility] 50 mg 0-07 tablets by [facility]y of tablet 00:00: mouth at [place] [address] bedtime. [facility] traZODone 2021-06 Yes [id number] 25mg Take 0.5 [facility] 50 mg 0-07 tablets by ity of tablet 00:00: mouth at [place] [address] bedtime. [facility] traZODone 2021-06 Yes [id number] 25mg Take 0.5 [facility] 50 mg 0-07 tablets by ity of tablet 00:00: mouth at [place] [address] bedtime. [facility] traZODone 2021-06 Yes [id number] 25mg Take 0.5 [facility] 50 mg 0-07 tablets by ity of tablet 00:00: mouth at [place] [address] bedtime. [facility] traZODone 2021-06 Yes [id number] 25mg Take 0.5 [facility] 50 mg 0-07 tablets by [facility]y of tablet 00:00: mouth at [place] [address] bedtime. [facility] traZODone 2021-06 Yes [id number] 25mg Take 0.5 [facility] 50 mg 0-07 tablets by [facility]y of tablet 00:00: mouth at [place] [address] bedtime. [facility] traZODone 2021-06 Yes [id number] 25mg Take 0.5 [facility] 50 mg 0-07 tablets by ity of tablet 00:00: mouth at [place] [address] bedtime. [facility] traZODone 2021-06 Yes [id number] 25mg Take 0.5 [facility] 50 mg 0-07 tablets by ity of tablet 00:00: mouth at [place] [address] bedtime. [facility] traZODone 2021-06 Yes [id number] 25mg Take 0.5 [facility] 50 mg 0-07 tablets by [facility]y of tablet 00:00: mouth at [place] [address] bedtime. [facility] traZODone 2021-06 Yes [id number] 25mg Take 0.5 [facility] 50 mg 0-07 tablets by [facility]y of tablet 00:00: mouth at [place] [address] bedtime. [facility] traZODone 2021-06 Yes [id number] 25mg Take 0.5 [facility] 50 mg 0-07 tablets by ity of tablet 00:00: mouth at [place] [address] bedtime. [facility] traZODone 2021-06 Yes [id number] 25mg Take 0.5 [facility] 50 mg 0-07 tablets by [facility] of tablet 00:00: mouth at [place] [address] bedtime. [facility] traZODone 2021-06 Yes [id number] 25mg Take 0.5 [facility] 50 mg 0-07 tablets by ity of tablet 00:00: mouth at [place] [address] bedtime. [facility] bumetanide 2021-06- No [id number] .5mg Take 1 U nivers 0.5 mg 0-07 10-10 tablet by ity of tablet 00:00: 00:00 mouth in [place] 00 :00 the Medical morning. Branch bumetanide 2021-06- No [id number] .5mg Take 1 U nivers 0.5 mg 0-07 10-10 tablet by ity of tablet 00:00: 00:00 mouth in [place] 00 :00 the Medical morning. Branch bumetanide 2021-06- No [id number] .5mg Take 1 U nivers 0.5 mg 0-07 10-10 tablet by ity of tablet 00:00: 00:00 mouth in [place] 00 :00 the Medical morning. Branch diltiazem 2021-06 Yes [id number] 120mg Take 1 Un miracle XR 120 mg 0-05 capsule by ity of 24 hr 00:00: mouth in [place] capsule the Medical morning. Branch lisinopriL 2021-06 Yes [id number] 5mg Take 1 Un miracle 5 mg tablet 0-05 tablet by ity of 00:00: mouth in [place] the Medical morning. Branch diltiazem 2021-06 Yes [id number] 120mg Take 1 Un miracle XR 120 mg 0-05 capsule by ity of 24 hr 00:00: mouth in [place] capsule 00 the Medical morning. Branch lisinopriL 2021-06 Yes [id number] 5mg Take 1 Un miracle 5 mg tablet 0-05 tablet by ity of 00:00: mouth in [place] the Medical morning. Branch diltiazem 2021-06 Yes [id number] 120mg Take 1 Un miracle XR 120 mg 0-05 capsule by ity of 24 hr 00:00: mouth in [place] capsule the Medical morning. Branch lisinopriL 2021-06 Yes [id number] 5mg Take 1 Un miracle 5 mg tablet 0-05 tablet by ity of 00:00: mouth in [place] the Medical morning. Branch diltiazem 2021-06 Yes [id number] 120mg Take 1 Un miracle XR 120 mg 0-05 capsule by ity of 24 hr 00:00: mouth in [place] capsule the Medical morning. Branch lisinopriL 2021-06 Yes [id number] 5mg Take 1 Un miracle 5 mg tablet 0-05 tablet by ity of 00:00: mouth in [place] 00 the Medical morning. Branch diltiazem 2021- Yes [id number] 120mg Take 1 Un miracle XR 120 mg 0-05 capsule by ity of 24 hr 00:00: mouth in [place] capsule 00 the Medical morning. Branch lisinopriL 2021-06 Yes [id number] 5mg Take 1 Un miracle 5 mg tablet 0-05 tablet by ity of 00:00: mouth in [place] 00 the Medical morning. Branch diltiazem 2021-06 Yes [id number] 120mg Take 1 Un miracle XR 120 mg 0-05 capsule by ity of 24 hr 00:00: mouth in [place] capsule 00 the Medical morning. Branch lisinopriL 2021-06 Yes [id number] 5mg Take 1 Un miracle 5 mg tablet 0-05 tablet by ity of 00:00: mouth in [place] 00 the Medical morning. Branch diltiazem 2021-06 Yes [id number] 120mg Take 1 Un miracle XR 120 mg 0-05 capsule by ity of 24 hr 00:00: mouth in [place] capsule 00 the Medical morning. Branch lisinopriL 2021-06 Yes [id number] 5mg Take 1 Un miracle 5 mg tablet 0-05 tablet by ity of 00:00: mouth in [place] 00 the Medical morning. Branch diltiazem 2021-06- No [id number] 120mg Take 1 U nivers XR 120 mg 0-05 10-17 capsule by ity of 24 hr 00:00: 00:00 mouth in [place] capsule 00 :00 the Medical morning. Branch lisinopriL 2021-06- No [id number] 5mg Take 1 U nivers 5 mg tablet 0-05 10-17 tablet by it y of 00:00: 00:00 mouth in [place] 00 :00 the Medical morning. Branch furosemide 2021-06- No 40mg 40 mg, Univ ers (LASIX) 0-04 10-04 Oral, ity of tablet 40 16:15: 18:38 DAILY, [place] mg 00 :08 First dose Medical on [facility] 03/13/22 at 1115, Until Discontinu ed, Routine furosemide 2021-06- No 40mg 40 mg, Univ ers (LASIX) 0-04 10-04 Oral, ity of tablet 40 16:15: 18:38 DAILY, [place] mg 00 :08 First dose Medical on [facility] 03/13/22 at 1115, Until Discontinu ed, Routine lisinopriL 2021-06 Yes 5mg 5 mg, Univer s (PRINIVIL,Z 0-04 Oral, ity of ESTRIL) 14:00: DAILY, [place] tablet 5 mg 00 First dose Me dical on [facility] 03/13/22 at 0900, Until Discontinu ed, Routine diltiazem 2021-06 Yes 120mg 120 mg, Univ ers XR 0-04 Oral, ity of (DILT-XR) 14:00: DAILY, [place] capsule 120 00 First dose Me dical mg on [facility] 03/13/22 at 0900, Until Discontinu ed, Routine tiotropium 2021-06 Yes 18ug 18 mcg, Univ ers (SPIRIVA) 0-04 Inhalation ity of inhalation 14:00: , DAILY, [place] as 18 mcg 00 First dose Medical on [facility] 03/13/22 at 0900, Until Discontinu ed, Routine metoprolol 2021-06 Yes 25mg 25 mg, Unive rs succinate 0-04 Oral, ity of XL (TOPROL 14:00: DAILY, [place] XL) tablet 00 First dose Med ical 25 mg on [facility] 03/13/22 at 0900, Until Discontinu ed, Routine fluticasone 2021-06 Yes 2{spray 2 [place], [facility] propionate 0-04 } Nasal, ity of 50 14:00: DAILY, [place] mcg/actuati 00 First dose Me dical on nasal on [facility] spray 2 03/13/22 at [place] 0900, Until Discontinu ed, Routine cetirizine 2021-06 Yes 5mg 5 mg, Univer s (ZYRTEC) 0-04 Oral, ity of tablet 5 mg 14:00: [place] 00 First dose Medical on [facility] 03/13/22 at 0900, Until Discontinu ed, Routine atorvastati 2021-06 Yes 40mg 40 mg, Univ ers n (LIPITOR) 0-04 Oral, ity of tablet 40 14:00: DAILY, [place] mg 00 First dose Medical on [facility] 03/13/22 at 0900, Until Discontinu ed, Routine aspirin EC 2021-06 Yes 81mg 81 mg, Unive rs tablet 81 0-04 Oral, ity of mg 14:00: DAILY, [place] 00 First dose Medical on [facility] 03/13/22 at 0900, Until Discontinu ed, Routine lisinopriL 2021-06 Yes 5mg 5 mg, Univer s (PRINIVIL,Z 0-04 Oral, ity of ESTRIL) 14:00: DAILY, [place] tablet 5 mg 00 First dose Me dical on [facility] 03/13/22 at 0900, Until Discontinu ed, Routine diltiazem 2021-06 Yes 120mg 120 mg, Univ ers XR 0-04 Oral, ity of (DILT-XR) 14:00: DAILY, [place] capsule 120 00 First dose Me dical mg on [facility] 03/13/22 at 0900, Until Discontinu ed, Routine tiotropium 2021-06 Yes 18ug 18 mcg, Univ ers (SPIRIVA) 0-04 Inhalation ity of inhalation 14:00: , DAILY, [place] 18 mcg 00 First dose Medical on [facility] 03/13/22 at 0900, Until Discontinu ed, Routine metoprolol 2021-06 Yes 25mg 25 mg, Unive rs succinate 0-04 Oral, ity of XL (TOPROL 14:00: DAILY, [place] XL) tablet 00 First dose Med ical 25 mg on [facility] 03/13/22 at 0900, Until Discontinu ed, Routine fluticasone 2021-06 Yes 2{spray 2 [place], [facility] propionate 0-04 } Nasal, ity of 50 14:00: DAILY, [place] mcg/actuati 00 First dose Me dical on nasal on [facility] spray 2 03/13/22 at [place] 0900, Until Discontinu ed, Routine cetirizine 2021-06 Yes 5mg 5 mg, Univer s (ZYRTEC) 0-04 Oral, ity of tablet 5 mg 14:00: [place]ILY[place] First dose Medical on [facility] 03/13/22 at 0900, Until Discontinu ed, Routine atorvastati 2021-06 Yes 40mg 40 mg, Univ ers n (LIPITOR) 0-04 Oral, ity of tablet 40 14:00: DAILY, [place] mg 00 First dose Medical on [facility] 03/13/22 at 0900, Until Discontinu ed, Routine aspirin EC 2021-06 Yes 81mg 81 mg, Unive rs tablet 81 0-04 Oral, ity of mg 14:00: DAILY, [place] 00 First dose Medical on [facility] 03/13/22 at 0900, Until Discontinu ed, Routine magnesium 2021-06 No 4g 4 g, IV Univ ers sulfate in 003-13 [place]gy[place], it y of water 4 13:15: 14:58 ONCE, 1 [place] gram/50 mL 00 :00 dose, On Medic al (8 %) IV [facility] Piggyback 4 03/13/22 at g 0815, Routine KCL 2021-06 No 40meq 40 mEq, [facility] (KLOR-CON 0-03-13 Oral, ity of M20) tablet 13:15: 13:25 ONCE, 1 [place] 40 mEq 00 :00 dose, On [facility] 03/13/22 at 0815, Routine magnesium 2021-06 No 4g 4 g, IV Univ ers sulfate in 003-13 Piggyback, it y of water 4 13:15: 14:58 ONCE, 1 [place] gram/50 mL 00 :00 dose, On Medic al (8 %) IV [facility] Piggyback 4 03/13/22 at g 0815, Routine KCL 2021-06 No 40meq 40 mEq, [facility] (KLOR-CON 0-03-13 Oral, ity of M20) tablet 13:15: 13:25 ONCE, 1 [place] 40 mEq 00 :00 dose, On [facility] 03/13/22 at 0815, Routine hydrOXYzine 2021-06 No 10mg 10 mg, Uni vers (ATARAX) 003-13 Oral, ity of tablet 10 02:30: 02:42 ONCE, 1 [place] mg 00 :00 dose, On [facility] 03/12/22 at 2130, Routine hydrOXYzine 2021-06 No 10mg 10 mg, Uni vers (ATARAX) 0-09 17- Oral, ity of tablet 10 02:30: 02:42 ONCE, 1 [place] mg 00 :00 dose, On [facility] 03/12/22 at 2130, Routine apixaban 2021-06 Yes 1358 2.5mg 2.5 mg, Unive rs (ELIQUIS) 0-04 Oral, BID, ity of tablet 2.5 01:00: First dose [place] mg 00 on [facility] 03/12/22 at Branch 1999, Until Discontinu ed, Routine
Indicatio ns: Non-Valvul ar Atrial Fibrillati on apixaban 2021-06 Yes 1358 2.5mg 2.5 mg, Unive rs (ELIQUIS) 0-04 Oral, BID, ity of tablet 2.5 01:00: First dose [place] mg 00 on [facility] 03/12/22 at [place] 1999, Until Discontinu ed, Routine
Indicatio ns: Non-Valvul ar Atrial Fibrillati on hydralAZINE 2021-06 No 10mg 10 mg, Uni vers (APRESOLINE 0-03 10-03 Slow IV ity of ) injection 19:15: 21:11 [place] 10 mg 00 :00 ONCE, 1 Medical dose, On Branch Sat03/12/22 at 1415, [place] hydralAZINE 2021-06 No 10mg 10 mg, Uni vers (APRESOLINE 0-03 10-03 Slow IV ity of ) injection 19:15: 21:11 [place] 10 mg 00 :00 ONCE, 1 Medical dose, On Branch Sat03/12/22 at 1415, [place] hydralAZINE 2021-06 Yes 10mg 10 mg, Univ ers (APRESOLINE 0-03 Slow IV ity o f ) injection 18:17: Push, [place] 10 mg 57 Q6HPRN, Medical Starting Branch on Sat03/12/22 at 1317, Until Discontinu ed, Routine, DBP=>10 0; SBP=>160 hydralAZINE 2021-06 Yes 10mg 10 mg, Univ ers (APRESOLINE 0-03 Slow IV ity o f ) injection 18:17: Push, [place] 10 mg 57 Q6HPRN, Medical Starting Branch on Sat03/12/22 at 1317, Until Discontinu ed, Routine, DBP=>10 0; SBP=>160 acetaminoph 2021-06 Yes 650mg 650 mg, Un miracle en 0-03 Oral, ity of (TYLENOL) 16:38: Q6HPRN, [place] tablet 650 54 Starting Medic al mg on [facility] 03/12/22 at 1138, Until Discontinu ed, Routine, Pain (scale 1-3) acetaminoph 2021-06 Yes 650mg 650 mg, Un miracle en 0-03 Oral, ity of (TYLENOL) 16:38: Q6HPRN, [place] tablet 650 54 Starting Medic al mg on [facility] 03/12/22 at 1138, Until Discontinu ed, Routine, Pain (scale 1-3) albuterol 2021-06 Yes 2.5mg 2.5 mg, Univ ers (PROVENTIL) 0-03 Inhalation it y of 2.5 mg /3 16:35: , Q6HPRN, [place] mL (0.083 05 Starting Medica l %) on [facility] nebulizer 03/12/22 at solution 1135, 2.5 mg Until Discontinu ed, Routine, Wheezing albuterol 2021-06 Yes 2.5mg 2.5 mg, Univ ers (PROVENTIL) 0-03 Inhalation it y of 2.5 mg /3 16:35: , Q6HPRN, [place] mL (0.083 05 Starting Medica l %) on [facility] nebulizer 03/12/22 at solution 1135, 2.5 mg Until Discontinu ed, Routine, Wheezing lidocaine 2021-06- No ONCE INTRA U nivers 1% (PF) 003-12 PROCEDURE, ity o f (XYLOCAINE) 13:04: 16:03 Starting [place] injection 57 :08 on [facility] 03/12/22 at Branch 0804, Until [facility] 03/12/22 at 1103, Routine, CV Intraproce dure ipratropium 2021-06- No .5mg 0.5 mg, Un miracle (ATROVENT) 003-12 Inhalation it y of 0.02 % 13:00: 12:17 , ONCE, 1 [place] nebulizer 00 :00 dose, On Medica l solution [facility] 0.5 mg 03/12/22 at 0800, Routine albuterol 2021-06- No 2.5mg 2.5 mg, Uni vers (PROVENTIL) 003-12 Inhalation i ty of 2.5 mg /3 13:00: 12:15 , ONCE, 1 [place] mL (0.083 00 :00 dose, On Medica l %) [place] nebulizer 03/12/22 at solution 0800, 2.5 mg Routine ipratropium 2021-06- No .5mg 0.5 mg, Un miracle (ATROVENT) 003-12 Inhalation it y of 0.02 % 13:00: 12:17 , ONCE, 1 [place] nebulizer 00 :00 dose, On Medica l solution Mon Branch 0.5 mg 03/12/22 at 0800, Routine albuterol 2021-06- No 2.5mg 2.5 mg, Uni vers (PROVENTIL) 03-12 Inhalation i ty of 2.5 mg /3 13:00: 12:15 , ONCE, 1 [place] mL (0.083 00 :00 dose, On Medica l %) [place] nebulizer 03/12/22 at solution 0800, 2.5 mg Routine metoprolol 0 Yes [id number] 25mg Take 1 [facility] succinate 9-19 tablet by ity o f XL 25 mg 24 00:00: mouth in [place] hr tablet 00 the Medical morning. Branch metoprolol 0 Yes [id number] 25mg Take 1 [facility] succinate 9-19 tablet by ity o f XL 25 mg 24 00:00: mouth in [place] hr tablet 00 the Medical morning. Branch metoprolol 2021-0 Yes [id number] 25mg Take 1 [facility] succinate 9-19 tablet by ity o f XL 25 mg 24 00:00: mouth in [place] hr tablet 00 the Medical morning. Branch metoprolol 2021-0 Yes [id number] 25mg Take 1 [facility] succinate 9-19 tablet by ity o f XL 25 mg 24 00:00: mouth in [place] hr tablet 00 the Medical morning. Branch metoprolol 2021-0 Yes [id number] 25mg Take 1 [facility] succinate 9-19 tablet by ity o f XL 25 mg 24 00:00: mouth in [place] hr tablet 00 the Medical morning. Branch metoprolol 2021-0 Yes [id number] 25mg Take 1 [facility] succinate 9-19 tablet by ity o f XL 25 mg 24 00:00: mouth in [place] hr tablet 00 the Medical morning. Branch metoprolol 2021-0 Yes [id number] 25mg Take 1 [facility] succinate 9-19 tablet by ity o f XL 25 mg 24 00:00: mouth in [place] hr tablet 00 the Medical morning. Branch metoprolol 2021-0 Yes [id number] 25mg Take 1 [facility] succinate 9-19 tablet by ity o f XL 25 mg 24 00:00: mouth in [place] hr tablet 00 the Medical morning. Branch metoprolol 2021-0 Yes [id number] 25mg Take 1 [facility] succinate 9-19 tablet by ity o f XL 25 mg 24 00:00: mouth in [place] hr tablet 00 the Medical morning. Branch metoprolol 2021-0 Yes [id number] 25mg Take 1 [facility] succinate 9-19 tablet by ity o f XL 25 mg 24 00:00: mouth in [place] hr tablet 00 the Medical morning. Branch metoprolol 2021-0 Yes [id number] 25mg Take 1 [facility] succinate 9-19 tablet by ity o f XL 25 mg 24 00:00: mouth in [place] hr tablet 00 the Medical morning. Branch metoprolol 2021-0 Yes [id number] 25mg Take 1 [facility] succinate 9-19 tablet by ity o f XL 25 mg 24 00:00: mouth in [place] hr tablet 00 the Medical morning. Branch metoprolol 2021-0 Yes [id number] 25mg Take 1 [facility] succinate 9-19 tablet by ity o f XL 25 mg 24 00:00: mouth in [place] hr tablet 00 the Medical morning. Branch metoprolol 2021-0 Yes [id number] 25mg Take 1 [facility] succinate 9-19 tablet by ity o f XL 25 mg 24 00:00: mouth in [place] hr tablet 00 the Medical morning. Branch metoprolol 2021-0 Yes [id number] 25mg Take 1 [facility] succinate 9-19 tablet by ity o f XL 25 mg 24 00:00: mouth in [place] hr tablet 00 the Medical morning. Branch metoprolol 2-0 Yes [id number] 25mg Take 1 [facility] succinate 9-19 tablet by ity o f XL 25 mg 24 00:00: mouth in [place] hr tablet 00 the Medical morning. Branch metoprolol 2-0 Yes [id number] 25mg Take 1 [facility] succinate 9-19 tablet by ity o f XL 25 mg 24 00:00: mouth in [place] hr tablet 00 the Medical morning. Branch metoprolol 2-0 Yes [id number] 25mg Take 1 [facility] succinate 9-19 tablet by ity o f XL 25 mg 24 00:00: mouth in [place] hr tablet 00 the Medical morning. Branch metoprolol 2-0 Yes [id number] 25mg Take 1 [facility] succinate 9-19 tablet by ity o f XL 25 mg 24 00:00: mouth in [place] hr tablet 00 the Medical morning. Branch metoprolol 2021-0 Yes [id number] 25mg Take 1 [facility] succinate 9-19 tablet by ity o f XL 25 mg 24 00:00: mouth in [place] hr tablet 00 the Medical morning. Branch metoprolol 2021-0 Yes [id number] 25mg Take 1 [facility] succinate 9-19 tablet by ity o f XL 25 mg 24 00:00: mouth in [place] hr tablet 00 the Medical morning. Branch metoprolol 2021-0 Yes [id number] 25mg Take 1 [facility] succinate 9-19 tablet by ity o f XL 25 mg 24 00:00: mouth in [place] hr tablet 00 the Medical morning. Branch metoprolol 2021-0 Yes [id number] 25mg Take 1 [facility] succinate 9-19 tablet by ity o f XL 25 mg 24 00:00: mouth in [place] hr tablet 00 the Medical morning. Branch metoprolol 2021-0 Yes [id number] 25mg Take 1 [facility] succinate 9-19 tablet by ity o f XL 25 mg 24 00:00: mouth in [place] hr tablet 00 the Medical morning. Branch metoprolol 2021-0 Yes [id number] 25mg Take 1 [facility] succinate 9-19 tablet by ity o f XL 25 mg 24 00:00: mouth in [place] hr tablet 00 the Medical morning. Branch metoprolol 2-0 Yes [id number] 25mg Take 1 [facility] succinate 9-19 tablet by ity o f XL 25 mg 24 00:00: mouth in [place] hr tablet 00 the Medical morning. Branch metoprolol 2-0 Yes [id number] 25mg Take 1 [facility] succinate 9-19 tablet by ity o f XL 25 mg 24 00:00: mouth in [place] hr tablet 00 the Medical morning. Branch metoprolol 2022-0 Yes [id number] 25mg Take 1 [facility] succinate 9-19 tablet by ity o f XL 25 mg 24 00:00: mouth in [place] hr tablet 00 the Medical morning. Branch metoprolol 2021-0 Yes [id number] 25mg Take 1 [facility] succinate 9-19 tablet by ity o f XL 25 mg 24 00:00: mouth in [place] hr tablet 00 the Medical morning. Branch metoprolol 2021-0 Yes [id number] 25mg Take 1 [facility] succinate 9-19 tablet by ity o f XL 25 mg 24 00:00: mouth in [place] hr tablet 00 the Medical morning. Branch metoprolol 2021-0 Yes [id number] 25mg Take 1 [facility] succinate 9-19 tablet by ity o f XL 25 mg 24 00:00: mouth in [place] hr tablet 00 the Medical morning. Branch metoprolol 2021-0 Yes [id number] 25mg Take 1 [facility] succinate 9-19 tablet by ity o f XL 25 mg 24 00:00: mouth in [place] hr tablet 00 the Medical morning. Branch metoprolol 2021-0 Yes [id number] 25mg Take 1 [facility] succinate 9-19 tablet by ity o f XL 25 mg 24 00:00: mouth in [place] hr tablet 00 the Medical morning. Branch metoprolol 2021-0 Yes [id number] 25mg Take 1 [facility] succinate 9-19 tablet by ity o f XL 25 mg 24 00:00: mouth in [place] hr tablet 00 the Medical morning. Branch metoprolol 2021-0 Yes [id number] 25mg Take 1 [facility] succinate 9-19 tablet by ity o f XL 25 mg 24 00:00: mouth in [place] hr tablet 00 the Medical morning. Branch metoprolol 2021-0 Yes [id number] 25mg Take 1 [facility] succinate 9-19 tablet by ity o f XL 25 mg 24 00:00: mouth in [place] hr tablet 00 the Medical morning. Branch metoprolol 2021-0 2021- No [id number] 25mg Take 1 [facility] succinate 9-19 12-06 tablet by ity of XL 25 mg 24 00:00: 00:00 mouth in [place] hr tablet 00 :00 the Medical morning. Branch metoprolol 2021-0 2021- No [id number] 25mg Take 1 [facility] succinate 9-19 12-06 tablet by ity of XL 25 mg 24 00:00: 00:00 mouth in [place] hr tablet 00 :00 the Medical morning. Branch diltiazem 2021-0 Yes [id number] 240mg Take 1 Un miracle 240 mg 24 8-16 capsule by ity of hr capsule 00:00: mouth in [place] 00 the Medical morning. Branch metoprolol 2021-0 Yes [id number] 25mg Take 1 [facility] succinate 8-16 tablet by ity o f XL 25 mg 24 00:00: mouth in [place] hr tablet 00 the Medical morning. Branch diltiazem 2021-0 Yes [id number] 240mg Take 1 [facility] miracle 240 mg 24 8-16 capsule by ity of hr capsule 00:00: mouth in [place] 00 the Medical morning. Branch metoprolol 2021-0 Yes [id number] 25mg Take 1 [facility] succinate 8-16 tablet by ity o f XL 25 mg 24 00:00: mouth in [place] hr tablet 00 the Medical morning. Branch diltiazem 2021-0 Yes [id number] 240mg Take 1 [facility] miracle 240 mg 24 8-16 capsule by ity of hr capsule 00:00: mouth in [place] 00 the Medical morning. Branch diltiazem 2021-0 Yes [id number] 240mg Take 1 [facility] 240 mg 24 8-16 capsule by ity of hr capsule 00:00: mouth in [place] 00 the Medical morning. Branch diltiazem 2021-0 Yes [id number] 240mg Take 1 [facility] 240 mg 24 8-16 capsule by ity of hr capsule 00:00: mouth in [place] 00 the Medical morning. Branch diltiazem 2021-0 Yes [id number] 240mg Take 1 [facility] 240 mg 24 8-16 capsule by ity of hr capsule 00:00: mouth in [place] 00 the Medical morning. Branch diltiazem 2-0 Yes [id number] 240mg Take 1 [facility] 240 mg 24 8-16 capsule by ity of hr capsule 00:00: mouth in [place] 00 the Medical morning. Branch diltiazem 2-0 Yes [id number] 240mg Take 1 [facility] 240 mg 24 8-16 capsule by ity of hr capsule 00:00: mouth in [place] 00 the Medical morning. Branch diltiazem 2021-0 Yes [id number] 240mg Take 1 [facility] 240 mg 24 8-16 capsule by ity of hr capsule 00:00: mouth in [place] 00 the Medical morning. Branch diltiazem 2021-0 Yes [id number] 240mg Take 1 [facility] 240 mg 24 8-16 capsule by ity of hr capsule 00:00: mouth in [place] 00 the Medical morning. Branch diltiazem 2021-0 Yes [id number] 240mg Take 1 [facility] 240 mg 24 8-16 capsule by ity of hr capsule 00:00: mouth in [place] 00 the Medical morning. Branch diltiazem 2021-0 2- No [id number] 240mg Take 1 U nivers 240 mg 24 8-16 10-04 capsule by ity of hr capsule 00:00: 00:00 mouth in [place] 00 :00 the Medical morning. Branch metoprolol 2021-2021- No [id number] 25mg Take 1 [facility] succinate 01-2319 tablet by ity of XL 25 mg 24 00:00: 00:00 mouth in [place] hr tablet 00 :00 the Medical morning. Branch metoprolol 2021-0 2021- No [id number] 25mg Take 1 [facility] succinate 01-2319 tablet by ity of XL 25 mg 24 00:00: 00:00 mouth in [place] hr tablet 00 :00 the Medical morning. Branch cetirizine 2021-0 Yes [id number] 5mg Take 1 U nivers 5 mg tablet 7-30 tablet by ity of 00:00: mouth in [place] 00 the Medical morning. Branch cetirizine 2021-0 Yes [id number] 5mg Take 1 U nivers 5 mg tablet 7-30 tablet by ity of 00:00: mouth in [place] 00 the Medical morning. Branch cetirizine 2021-0 Yes [id number] 5mg Take 1 U nivers 5 mg tablet 7-30 tablet by ity of 00:00: mouth in [place] 00 the Medical morning. Branch cetirizine 2021-0 Yes [id number] 5mg Take 1 U nivers 5 mg tablet 7-30 tablet by ity of 00:00: mouth in [place] 00 the Medical morning. Branch cetirizine 2021-0 Yes [id number] 5mg Take 1 U nivers 5 mg tablet 7-30 tablet by ity of 00:00: mouth in [place] the Medical morning. Branch cetirizine 2021-0 Yes [id number] 5mg Take 1 U nivers 5 mg tablet 7-30 tablet by ity of 00:00: mouth in [place] the Medical morning. Branch cetirizine 2-0 Yes [id number] 5mg Take 1 U nivers 5 mg tablet 7-30 tablet by ity of 00:00: mouth in [place] the Medical morning. Branch cetirizine 2021-0 Yes [id number] 5mg Take 1 U nivers 5 mg tablet 7-30 tablet by ity of 00:00: mouth in [place] the Medical morning. Branch cetirizine 2021-0 Yes [id number] 5mg Take 1 U nivers 5 mg tablet 7-30 tablet by ity of 00:00: mouth in [place] the Medical morning. Branch cetirizine 2021-0 Yes [id number] 5mg Take 1 U nivers 5 mg tablet 7-30 tablet by ity of 00:00: mouth in [place] the Medical morning. Branch cetirizine 2021-0 Yes [id number] 5mg Take 1 U nivers 5 mg tablet 7-30 tablet by ity of 00:00: mouth in [place] the morning. Branch cetirizine 2021-0 Yes [id number] 5mg Take 1 U nivers 5 mg tablet 7-30 tablet by ity of 00:00: mouth in [place] the morning. Branch cetirizine 2-0 Yes [id number] 5mg Take 1 U nivers 5 mg tablet 7-30 tablet by ity of 00:00: mouth in [place] the Medical morning. Branch cetirizine 2021-0 Yes [id number] 5mg Take 1 U nivers 5 mg tablet 7-30 tablet by ity of 00:00: mouth in [place] the Medical morning. Branch cetirizine 2-0 Yes [id number] 5mg Take 1 U nivers 5 mg tablet 7-30 tablet by ity of 00:00: mouth in [place] the Medical morning. Branch cetirizine 2-0 Yes [id number] 5mg Take 1 U nivers 5 mg tablet 7-30 tablet by ity of 00:00: mouth in [place] the Medical morning. Branch cetirizine 2-0 Yes [id number] 5mg Take 1 U nivers 5 mg tablet 7-30 tablet by ity of 00:00: mouth in [place] the Medical morning. Branch cetirizine 2-0 Yes [id number] 5mg Take 1 U nivers 5 mg tablet 7-30 tablet by ity of 00:00: mouth in [place] the Medical morning. Branch cetirizine 2-0 Yes [id number] 5mg Take 1 U nivers 5 mg tablet 7-30 tablet by ity of 00:00: mouth in [place] the Medical morning. Branch cetirizine 2-0 Yes [id number] 5mg Take 1 U nivers 5 mg tablet 7-30 tablet by ity of 00:00: mouth in [place] the Medical morning. Branch cetirizine 2-0 Yes [id number] 5mg Take 1 U nivers 5 mg tablet 7-30 tablet by ity of 00:00: mouth in [place] the Medical morning. Branch cetirizine 2-0 Yes [id number] 5mg Take 1 U nivers 5 mg tablet 7-30 tablet by ity of 00:00: mouth in [place] the Medical morning. Branch cetirizine 2021-0 Yes [id number] 5mg Take 1 U nivers 5 mg tablet 7-30 tablet by ity of 00:00: mouth in [place] the Medical morning. Branch cetirizine 2-0 Yes [id number] 5mg Take 1 U nivers 5 mg tablet 7-30 tablet by ity of 00:00: mouth in [place] the Medical morning. Branch cetirizine 2-0 Yes [id number] 5mg Take 1 U nivers 5 mg tablet 7-30 tablet by ity of 00:00: mouth in [place] the Medical morning. Branch cetirizine 2-0 Yes [id number] 5mg Take 1 U nivers 5 mg tablet 7-30 tablet by ity of 00:00: mouth in [place] the Medical morning. Branch cetirizine 2-0 Yes [id number] 5mg Take 1 U nivers 5 mg tablet 7-30 tablet by ity of 00:00: mouth in [place] the Medical morning. Branch cetirizine 2-0 Yes [id number] 5mg Take 1 U nivers 5 mg tablet 7-30 tablet by ity of 00:00: mouth in [place] the Medical morning. Branch cetirizine 2021-0 Yes [id number] 5mg Take 1 U nivers 5 mg tablet 7-30 tablet by ity of 00:00: mouth in [place] the Medical morning. Branch cetirizine 2021-0 Yes [id number] 5mg Take 1 U nivers 5 mg tablet 7-30 tablet by ity of 00:00: mouth in [place] the Medical morning. Branch cetirizine 2021-0 Yes [id number] 5mg Take 1 U nivers 5 mg tablet 7-30 tablet by ity of 00:00: mouth in [place] the Medical morning. Branch cetirizine 2021-0 Yes [id number] 5mg Take 1 U nivers 5 mg tablet 7-30 tablet by ity of 00:00: mouth in [place] the Medical morning. Branch cetirizine 2021-0 Yes [id number] 5mg Take 1 U nivers 5 mg tablet 7-30 tablet by ity of 00:00: mouth in [place] the Medical morning. Branch cetirizine 2021-0 Yes [id number] 5mg Take 1 U nivers 5 mg tablet 7-30 tablet by ity of 00:00: mouth in [place] the Medical morning. Branch cetirizine 2021-0 Yes [id number] 5mg Take 1 U nivers 5 mg tablet 7-30 tablet by ity of 00:00: mouth in [place] the Medical morning. Branch cetirizine 2021-0 Yes [id number] 5mg Take 1 U nivers 5 mg tablet 7-30 tablet by ity of 00:00: mouth in [place] the Medical morning. Branch cetirizine 2021-0 Yes [id number] 5mg Take 1 U nivers 5 mg tablet 7-30 tablet by ity of 00:00: mouth in [place] the Medical morning. Branch cetirizine 2-0 Yes [id number] 5mg Take 1 U nivers 5 mg tablet 7-30 tablet by ity of 00:00: mouth in [place] the Medical morning. Branch cetirizine 2021-0 Yes [id number] 5mg Take 1 U nivers 5 mg tablet 7-30 tablet by ity of 00:00: mouth in [place] the Medical morning. Branch cetirizine 2022-0 Yes [id number] 5mg Take 1 U nivers 5 mg tablet 7-30 tablet by ity of 00:00: mouth in [place] the Medical morning. Branch cetirizine 2-0 Yes [id number] 5mg Take 1 U nivers 5 mg tablet 7-30 tablet by ity of 00:00: mouth in [place] the Medical morning. Branch cetirizine 2-0 Yes [id number] 5mg Take 1 U nivers 5 mg tablet 7-30 tablet by ity of 00:00: mouth in [place] the Medical morning. Branch cetirizine 2-0 Yes [id number] 5mg Take 1 U nivers 5 mg tablet 7-30 tablet by ity of 00:00: mouth in [place] the Medical morning. Branch cetirizine 2-0 Yes [id number] 5mg Take 1 U nivers 5 mg tablet 7-30 tablet by ity of 00:00: mouth in [place] the Medical morning. Branch cetirizine 2-0 Yes [id number] 5mg Take 1 U nivers 5 mg tablet 7-30 tablet by ity of 00:00: mouth in [place] the Medical morning. Branch cetirizine 2021-0 Yes [id number] 5mg Take 1 U nivers 5 mg tablet 7-30 tablet by ity of 00:00: mouth in [place] the Medical morning. Branch cetirizine 2-0 Yes [id number] 5mg Take 1 U nivers 5 mg tablet 7-30 tablet by ity of 00:00: mouth in [place] the Medical morning. Branch cetirizine 2-0 Yes [id number] 5mg Take 1 U nivers 5 mg tablet 7-30 tablet by ity of 00:00: mouth in [place] the Medical morning. Branch cetirizine 2-0 Yes [id number] 5mg Take 1 U nivers 5 mg tablet 7-30 tablet by ity of 00:00: mouth in [place] the Medical morning. Branch cetirizine 2-0 Yes [id number] 5mg Take 1 U nivers 5 mg tablet 7-30 tablet by ity of 00:00: mouth in [place] the Medical morning. Branch cetirizine 2-0 Yes [id number] 5mg Take 1 U nivers 5 mg tablet 7-30 tablet by ity of 00:00: mouth in [place] the Medical morning. Branch cetirizine 2-0 Yes [id number] 5mg Take 1 U nivers 5 mg tablet 7-30 tablet by ity of 00:00: mouth in [place] the Medical morning. Branch cetirizine 2-0 Yes [id number] 5mg Take 1 U nivers 5 mg tablet 7-30 tablet by ity of 00:00: mouth in [place] the Medical morning. Branch cetirizine 2-0 Yes [id number] 5mg Take 1 U nivers 5 mg tablet 7-30 tablet by ity of 00:00: mouth in [place] the Medical morning. Branch cetirizine 2-0 Yes [id number] 5mg Take 1 U nivers 5 mg tablet 7-30 tablet by ity of 00:00: mouth in [place] the Medical morning. Branch cetirizine 2-0 Yes [id number] 5mg Take 1 U nivers 5 mg tablet 7-30 tablet by ity of 00:00: mouth in [place] the Medical morning. Branch cetirizine 2-0 Yes [id number] 5mg Take 1 U nivers 5 mg tablet 7-30 tablet by ity of 00:00: mouth in [place] the Medical morning. Branch cetirizine 2021-0 Yes [id number] 5mg Take 1 U nivers 5 mg tablet 7-30 tablet by ity of 00:00: mouth in [place] the Medical morning. Branch cetirizine 2-0 Yes [id number] 5mg Take 1 U nivers 5 mg tablet 7-30 tablet by [facility] 00:00: mouth in [place] the Medical morning. Branch cetirizine 2-0 Yes [id number] 5mg Take 1 [facility] 5 mg tablet 7-30 tablet by [facility] of 00:00: mouth in [place] the Medical morning. Branch cetirizine 2-0 Yes [id number] 5mg Take 1 [facility] 5 mg tablet 7-30 tablet by [facility] of 00:00: mouth in [place] the Medical morning. Branch cetirizine 2-0 Yes [id number] 5mg Take 1 [facility] 5 mg tablet 7-30 tablet by [facility] of 00:00: mouth in [place] the Medical morning. Branch cetirizine 2-0 Yes [id number] 5mg Take 1 [facility] 5 mg tablet 7-30 tablet by [facility] of 00:00: mouth in [place] the Medical morning. Branch cetirizine 2-0 Yes [id number] 5mg Take 1 [facility] 5 mg tablet 7-30 tablet by [facility] of 00:00: mouth in [place] the Medical morning. Branch cetirizine 2-0 Yes [id number] 5mg Take 1 [facility] 5 mg tablet 7-30 tablet by [facility] of 00:00: mouth in [place] the Medical morning. Branch cetirizine 2-0 Yes [id number] 5mg Take 1 [facility] 5 mg tablet 7-30 tablet by [facility] of 00:00: mouth in [place] the Medical morning. Branch cetirizine 2-0 Yes [id number] 5mg Take 1 [facility] 5 mg tablet 7-30 tablet by [facility] of 00:00: mouth in [place] the Medical morning. Branch cetirizine 2-0 Yes [id number] 5mg Take 1 [facility] 5 mg tablet 7-30 tablet by [facility] of 00:00: mouth in [place] the Medical morning. Branch cetirizine 2021-0 Yes [id number] 5mg Take 1 [facility] 5 mg tablet 7-30 tablet by [facility] of 00:00: mouth in [place] the Medical morning. Branch cetirizine 2-0 Yes [id number] 5mg Take 1 [facility] 5 mg tablet 7-30 tablet by [facility] of 00:00: mouth in [place] the Medical morning. Branch cetirizine 2-0 Yes [id number] 5mg Take 1 [facility] 5 mg tablet 7-30 tablet by [facility] of 00:00: mouth in [place] the Medical morning. Branch cetirizine 2-0 Yes [id number] 5mg Take 1 [facility] 5 mg tablet 7-30 tablet by [facility] of 00:00: mouth in [place] the Medical morning. Branch cetirizine 2-0 Yes [id number] 5mg Take 1 [facility] 5 mg tablet 7-30 tablet by [facility] of 00:00: mouth in [place] the Medical morning. Branch cetirizine 2-0 Yes [id number] 5mg Take 1 [facility] 5 mg tablet 7-30 tablet by [facility] of 00:00: mouth in [place] 00 the Medical morning. Branch cetirizine 2-0 Yes [id number] 5mg Take 1 [facility] 5 mg tablet 7-30 tablet by [facility] of 00:00: mouth in [place] the Medical morning. Branch cetirizine 2-0 Yes [id number] 5mg Take 1 [facility] 5 mg tablet 7-30 tablet by [facility] of 00:00: mouth in [place] the Medical morning. Branch cetirizine 2-0 Yes [id number] 5mg Take 1 [facility] 5 mg tablet 7-30 tablet by [facility] of 00:00: mouth in [place] the Medical morning. Branch cetirizine 2021-0 Yes [id number] 5mg Take 1 [facility] 5 mg tablet 7-30 tablet by [facility] of 00:00: mouth in [place] the Medical morning. Branch cetirizine 2021-0 Yes [id number] 5mg Take 1 [facility] 5 mg tablet 7-30 tablet by [facility] of 00:00: mouth in [place] the Medical morning. Branch cetirizine 2-0 Yes [id number] 5mg Take 1 [facility] 5 mg tablet 7-30 tablet by [facility] of 00:00: mouth in [place] the Medical morning. Branch cetirizine 2021-0 Yes [id number] 5mg Take 1 [facility] 5 mg tablet 7-30 tablet by [facility] of 00:00: mouth in [place] the Medical morning. Branch cetirizine 2021-0 Yes [id number] 5mg Take 1 [facility] 5 mg tablet 7-30 tablet by [facility] of 00:00: mouth in [place] the Medical morning. Branch cetirizine 2-0 Yes [id number] 5mg Take 1 [facility] 5 mg tablet 7-30 tablet by [facility] of 00:00: mouth in [place] the Medical morning. Branch cetirizine 2-0 Yes [id number] 5mg Take 1 [facility] 5 mg tablet 7-30 tablet by [facility] of 00:00: mouth in [place] the Medical morning. Branch cetirizine 2-0 Yes [id number] 5mg Take 1 [facility] 5 mg tablet 7-30 tablet by [facility] of 00:00: mouth in [place] 00 the Medical morning. Branch cetirizine 2-0 Yes [id number] 5mg Take 1 [facility] 5 mg tablet 7-30 tablet by [facility] of 00:00: mouth in [place] the Medical morning. Branch cetirizine 2-0 Yes [id number] 5mg Take 1 [facility] 5 mg tablet 7-30 tablet by [facility] of 00:00: mouth in [place] the Medical morning. Branch cetirizine 2021-0 Yes [id number] 5mg Take 1 [facility] 5 mg tablet 7-30 tablet by [facility] of 00:00: mouth in [place] the Medical morning. Branch cetirizine 2-0 Yes [id number] 5mg Take 1 [facility] 5 mg tablet 7-30 tablet by [facility] of 00:00: mouth in [place] the Medical morning. Branch cetirizine 2021-0 Yes [id number] 5mg Take 1 [facility] 5 mg tablet 7-30 tablet by [facility] of 00:00: mouth in [place] the Medical morning. Branch cetirizine 2021-0 Yes [id number] 5mg Take 1 [facility] 5 mg tablet 7-30 tablet by [facility] of 00:00: mouth in [place] the Medical morning. Branch cetirizine 2021-0 Yes [id number] 5mg Take 1 [facility] 5 mg tablet 7-30 tablet by [facility] of 00:00: mouth in [place] the Medical morning. Branch cetirizine 2021-0 Yes [id number] 5mg Take 1 [facility] 5 mg tablet 7-30 tablet by [facility] of 00:00: mouth in [place] the Medical morning. Branch cetirizine 2021-0 Yes [id number] 5mg Take 1 [facility] 5 mg tablet 7-30 tablet by [facility] of 00:00: mouth in [place] the Medical morning. Branch cetirizine 2021-0 Yes [id number] 5mg Take 1 [facility] 5 mg tablet 7-30 tablet by [facility] of 00:00: mouth in [place] the Medical morning. Branch cetirizine 2-0 Yes [id number] 5mg Take 1 [facility] 5 mg tablet 7-30 tablet by [facility] of 00:00: mouth in [place] the Medical morning. Branch cetirizine 2-0 Yes [id number] 5mg Take 1 [facility] 5 mg tablet 7-30 tablet by [facility] of 00:00: mouth in [place] the Medical morning. Branch cetirizine 2-0 Yes [id number] 5mg Take 1 [facility] 5 mg tablet 7-30 tablet by [facility] of 00:00: mouth in [place] the Medical morning. Branch cetirizine 2-0 Yes [id number] 5mg Take 1 [facility] 5 mg tablet 7-30 tablet by [facility] of 00:00: mouth in [place] the Medical morning. Branch cetirizine 2-0 Yes [id number] 5mg Take 1 [facility] 5 mg tablet 7-30 tablet by [facility] of 00:00: mouth in [place] the Medical morning. Branch cetirizine 2021-0 Yes [id number] 5mg Take 1 [facility] 5 mg tablet 7-30 tablet by [facility] of 00:00: mouth in [place] the Medical morning. Branch cetirizine 2021-0 Yes [id number] 5mg Take 1 [facility] 5 mg tablet 7-30 tablet by [facility] of 00:00: mouth in [place] the Medical morning. Branch cetirizine 2021-0 Yes [id number] 5mg Take 1 [facility] 5 mg tablet 7-30 tablet by [facility] of 00:00: mouth in [place] the Medical morning. Branch cetirizine 2021-0 Yes [id number] 5mg Take 1 [facility] 5 mg tablet 7-30 tablet by [facility] of 00:00: mouth in [place] the Medical morning. Branch cetirizine 2021-0 Yes [id number] 5mg Take 1 [facility] 5 mg tablet 7-30 tablet by [facility] of 00:00: mouth in [place] the Medical morning. Branch cetirizine 2021-0 Yes [id number] 5mg Take 1 [facility] 5 mg tablet 7-30 tablet by [facility] of 00:00: mouth in [place] the Medical morning. Branch cetirizine 2-0 Yes [id number] 5mg Take 1 [facility] 5 mg tablet 7-30 tablet by [facility] of 00:00: mouth in [place] the Medical morning. Branch cetirizine 2-0 Yes [id number] 5mg Take 1 [facility] 5 mg tablet 7-30 tablet by [facility] of 00:00: mouth in [place] the Medical morning. Branch cetirizine 2-0 Yes [id number] 5mg Take 1 [facility] 5 mg tablet 7-30 tablet by [facility] of 00:00: mouth in [place] the Medical morning. Branch cetirizine 2-0 Yes [id number] 5mg Take 1 [facility] 5 mg tablet 7-30 tablet by [facility] of 00:00: mouth in [place] the Medical morning. Branch cetirizine 2-0 Yes [id number] 5mg Take 1 [facility] 5 mg tablet 7-30 tablet by [facility] 00:00: mouth in [place] the Medical morning. Branch cetirizine 2-0 Yes [id number] 5mg Take 1 [facility] 5 mg tablet 7-30 tablet by [facility] of 00:00: mouth in [place] the Medical morning. Branch cetirizine 2-0 Yes [id number] 5mg Take 1 [facility] 5 mg tablet 7-30 tablet by [facility] of 00:00: mouth in [place] the Medical morning. Branch cetirizine 2-0 Yes [id number] 5mg Take 1 [facility] 5 mg tablet 7-30 tablet by [facility] of 00:00: mouth in [place] the Medical morning. Branch cetirizine 2-0 Yes [id number] 5mg Take 1 [facility] 5 mg tablet 7-30 tablet by [facility] of 00:00: mouth in [place] the Medical morning. Branch cetirizine 2-0 Yes [id number] 5mg Take 1 [facility] 5 mg tablet 7-30 tablet by [facility] of 00:00: mouth in [place] the Medical morning. Branch cetirizine 2-0 Yes [id number] 5mg Take 1 [facility] 5 mg tablet 7-30 tablet by [facility] 00:00: mouth in [place] the Medical morning. Branch cetirizine 2-0 Yes [id number] 5mg Take 1 [facility] 5 mg tablet 7-30 tablet by [facility] 00:00: mouth in [place] the Medical morning. Branch cetirizine 2-0 Yes [id number] 5mg Take 1 [facility] 5 mg tablet 7-30 tablet by [facility] 00:00: mouth in [place] the Medical morning. Branch cetirizine 2-0 Yes [id number] 5mg Take 1 [facility] 5 mg tablet 7-30 tablet by [facility] 00:00: mouth in [place] the Medical morning. Branch cetirizine 2-0 Yes [id number] 5mg Take 1 [facility] 5 mg tablet 7-30 tablet by [facility] 00:00: mouth in [place] the Medical morning. Branch cetirizine 2021-0 Yes [id number] 5mg Take 1 [facility] 5 mg tablet 7-30 tablet by [facility] 00:00: mouth in [place] the Medical morning. Branch cetirizine 2021-0 Yes [id number] 5mg Take 1 [facility] 5 mg tablet 7-30 tablet by [facility] of 00:00: mouth in [place] the Medical morning. Branch cetirizine 2021-0 Yes [id number] 5mg Take 1 [facility] 5 mg tablet 7-30 tablet by [facility] 00:00: mouth in [place] the Medical morning. Branch cetirizine 2021-0 Yes [id number] 5mg Take 1 [facility] 5 mg tablet 7-30 tablet by [facility] 00:00: mouth in [place] the Medical morning. Branch cetirizine 2021-0 Yes [id number] 5mg Take 1 [facility] 5 mg tablet 7-30 tablet by [facility] 00:00: mouth in [place] the Medical morning. Branch cetirizine 2021-0 Yes [id number] 5mg Take 1 [facility] 5 mg tablet 7-30 tablet by [facility] of 00:00: mouth in [place] the Medical morning. Branch cetirizine 2021-0 Yes [id number] 5mg Take 1 [facility] 5 mg tablet 7-30 tablet by [facility] of 00:00: mouth in [place] the [facility] morning. Branch cetirizine 2021-0 Yes [id number] 5mg Take 1 [facility] 5 mg tablet 7-30 tablet by [facility] of 00:00: mouth in [place] the [facility] morning. Branch cetirizine 2021-0 Yes [id number] 5mg Take 1 [facility] 5 mg tablet 7-30 tablet by [facility] 00:00: mouth in [place] the [facility] morning. Branch cetirizine 2-0 Yes [id number] 5mg Take 1 [facility] 5 mg tablet 7-30 tablet by [facility] 00:00: mouth in [place] the Medical morning. Branch cetirizine 2-0 Yes [id number] 5mg Take 1 [facility] 5 mg tablet 7-30 tablet by [facility] 00:00: mouth in [place] the Medical morning. Branch cetirizine 2-0 Yes [id number] 5mg Take 1 [facility] 5 mg tablet 7-30 tablet by [facility] of 00:00: mouth in [place] the Medical morning. Branch cetirizine 2-0 Yes [id number] 5mg Take 1 [facility] 5 mg tablet 7-30 tablet by [facility] 00:00: mouth in [place] the Medical morning. Branch cetirizine 2-0 Yes [id number] 5mg Take 1 [facility] 5 mg tablet 7-30 tablet by [facility] of 00:00: mouth in [place] the Medical morning. Branch cetirizine 2-0 Yes [id number] 5mg Take 1 [facility] 5 mg tablet 7-30 tablet by [facility] 00:00: mouth in [place] the Medical morning. Branch cetirizine 2-0 Yes [id number] 5mg Take 1 [facility] 5 mg tablet 7-30 tablet by [facility] of 00:00: mouth in [place] the Medical morning. Branch cetirizine 2-0 Yes [id number] 5mg Take 1 [facility] 5 mg tablet 7-30 tablet by [facility] of 00:00: mouth in [place] the Medical morning. Branch cetirizine 2-0 Yes [id number] 5mg Take 1 [facility] 5 mg tablet 7-30 tablet by [facility] of 00:00: mouth in [place] the Medical morning. Branch cetirizine 2-0 Yes [id number] 5mg Take 1 [facility] 5 mg tablet 7-30 tablet by [facility] of 00:00: mouth in [place] the Medical morning. Branch cetirizine 2-0 Yes [id number] 5mg Take 1 [facility] 5 mg tablet 7-30 tablet by [facility] of 00:00: mouth in [place] the Medical morning. Branch cetirizine 2-0 Yes [id number] 5mg Take 1 [facility] 5 mg tablet 7-30 tablet by [facility] of 00:00: mouth in [place] the Medical morning. Branch cetirizine 2-0 Yes [id number] 5mg Take 1 [facility] 5 mg tablet 7-30 tablet by [facility] of 00:00: mouth in [place] the Medical morning. Branch cetirizine 2-0 Yes [id number] 5mg Take 1 [facility] 5 mg tablet 7-30 tablet by [facility] of 00:00: mouth in [place] the Medical morning. Branch cetirizine 2-0 Yes [id number] 5mg Take 1 [facility] 5 mg tablet 7-30 tablet by [facility] of 00:00: mouth in [place] the Medical morning. Branch cetirizine 2-0 Yes [id number] 5mg Take 1 [facility] 5 mg tablet 7-30 tablet by [facility] of 00:00: mouth in [place] the Medical morning. Branch cetirizine 2-0 Yes [id number] 5mg Take 1 [facility] 5 mg tablet 7-30 tablet by [facility] of 00:00: mouth in [place] the Medical morning. Branch cetirizine 2021-0 Yes [id number] 5mg Take 1 [facility] 5 mg tablet 7-30 tablet by [facility] of 00:00: mouth in [place] the Medical morning. Branch cetirizine 2021-0 Yes [id number] 5mg Take 1 [facility] 5 mg tablet 7-30 tablet by [facility] of 00:00: mouth in [place] the Medical morning. Branch cetirizine 2021-0 Yes [id number] 5mg Take 1 [facility] 5 mg tablet 7-30 tablet by [facility] of 00:00: mouth in [place] the Medical morning. Branch cetirizine 2021-0 Yes [id number] 5mg Take 1 [facility] 5 mg tablet 7-30 tablet by [facility] of 00:00: mouth in [place] the Medical morning. Branch cetirizine 2-0 Yes [id number] 5mg Take 1 [facility] 5 mg tablet 7-30 tablet by [facility] of 00:00: mouth in [place] the [facility] morning. Branch cetirizine 2-0 Yes [id number] 5mg Take 1 [facility] 5 mg tablet 7-30 tablet by [facility] of 00:00: mouth in [place] the Medical morning. Branch cetirizine 2-0 Yes [id number] 5mg Take 1 [facility] 5 mg tablet 7-30 tablet by [facility] of 00:00: mouth in [place] the [facility] morning. Branch cetirizine 2-0 Yes [id number] 5mg Take 1 [facility] 5 mg tablet 7-30 tablet by [facility] of 00:00: mouth in [place] the Medical morning. Branch cetirizine 2-0 Yes [id number] 5mg Take 1 [facility] 5 mg tablet 7-30 tablet by [facility] of 00:00: mouth in [place] the Medical morning. Branch cetirizine 2021-0 Yes [id number] 5mg Take 1 [facility] 5 mg tablet 7-30 tablet by [facility] of 00:00: mouth in [place] the Medical morning. Branch cetirizine 2021-0 Yes [id number] 5mg Take 1 [facility] 5 mg tablet 7-30 tablet by [facility] of 00:00: mouth in [place] the Medical morning. Branch cetirizine 2021-0 Yes [id number] 5mg Take 1 [facility] 5 mg tablet 7-30 tablet by [facility] of 00:00: mouth in [place] the Medical morning. Branch cetirizine 2021-0 Yes [id number] 5mg Take 1 [facility] 5 mg tablet 7-30 tablet by [facility] of 00:00: mouth in [place] the Medical morning. Branch cetirizine 2021-0 Yes [id number] 5mg Take 1 [facility] 5 mg tablet 7-30 tablet by [facility] of 00:00: mouth in [place] the Medical morning. Branch cetirizine 2021-0 Yes [id number] 5mg Take 1 [facility] 5 mg tablet 7-30 tablet by [facility] of 00:00: mouth in [place] the Medical morning. Branch cetirizine 2021-0 Yes [id number] 5mg Take 1 [facility] 5 mg tablet 7-30 tablet by [facility] of 00:00: mouth in [place] the Medical morning. Branch cetirizine 2021-0 Yes [id number] 5mg Take 1 [facility] 5 mg tablet 7-30 tablet by [facility] of 00:00: mouth in [place] the Medical morning. Branch cetirizine 2021-0 Yes [id number] 5mg Take 1 [facility] 5 mg tablet 7-30 tablet by [facility] of 00:00: mouth in [place] the Medical morning. Branch cetirizine 2-0 Yes [id number] 5mg Take 1 [facility] 5 mg tablet 7-30 tablet by [facility] of 00:00: mouth in [place] the Medical morning. Branch cetirizine 2021-0 Yes [id number] 5mg Take 1 [facility] 5 mg tablet 7-30 tablet by [facility] of 00:00: mouth in [place] the Medical morning. Branch cetirizine 2022-0 Yes [id number] 5mg Take 1 [facility] 5 mg tablet 7-30 tablet by [facility] of 00:00: mouth in [place] the Medical morning. Branch cetirizine 2021-0 Yes [id number] 5mg Take 1 [facility] 5 mg tablet 7-30 tablet by [facility] of 00:00: mouth in [place] the Medical morning. Branch cetirizine 2021-0 Yes [id number] 5mg Take 1 [facility] 5 mg tablet 7-30 tablet by [facility] of 00:00: mouth in [place] the Medical morning. Branch cetirizine 2021-0 Yes [id number] 5mg Take 1 [facility] 5 mg tablet 7-30 tablet by [facility] of 00:00: mouth in [place] the Medical morning. Branch cetirizine 2021-0 Yes [id number] 5mg Take 1 [facility] 5 mg tablet 7-30 tablet by [facility] of 00:00: mouth in [place] the Medical morning. Branch cetirizine 2021-0 Yes [id number] 5mg Take 1 [facility] 5 mg tablet 7-30 tablet by [facility] of 00:00: mouth in [place] the Medical morning. Branch cetirizine 2021-0 Yes [id number] 5mg Take 1 [facility] 5 mg tablet 7-30 tablet by [facility] of 00:00: mouth in [place] the Medical morning. Branch cetirizine 2021-0 Yes [id number] 5mg Take 1 [facility] 5 mg tablet 7-30 tablet by [facility] of 00:00: mouth in [place] the Medical morning. Branch cetirizine 2021-0 Yes [id number] 5mg Take 1 [facility] 5 mg tablet 7-30 tablet by [facility] of 00:00: mouth in [place] the Medical morning. Branch fluticasone 2021-0 Yes [id number] 2{spray Use 2 [facility] prop[facility] 7-26 } Sprays in [facility] 50 00:00: each [place] mcg/actuati 00 nostril in Me dical on nasal the Branch spray morning. fluticasone 2021-0 Yes [id number] 2{spray Use 2 [facility] prop[facility] 7-26 } Sprays in [facility] of 50 00:00: each [place] mcg/actuati 00 nostril in Me dical on nasal the Branch spray morning. fluticasone 2021-0 Yes [id number] 2{spray Use 2 [facility] prop[facility] 7-26 } Sprays in [facility] of 50 00:00: each [place] mcg/actuati 00 nostril in Me dical on nasal the Branch spray morning. fluticasone 0 Yes [id number] 2{spray Use 2 [facility] prop[facility] 7-26 } Sprays in [facility] of 50 00:00: each [place] mcg/actuati 00 nostril in Me dical on nasal the Branch spray morning. fluticasone 2021-0 Yes [id number] 2{spray Use 2 [facility] propionate 7-26 } Sprays in [facility] of 50 00:00: each [place] mcg/actuati 00 nostril in Me dical on nasal the Branch spray morning. fluticasone 2021-0 Yes [id number] 2{spray Use 2 [facility] propionate 7-26 } Sprays in [facility] of 50 00:00: each [place] mcg/actuati 00 nostril in Me dical on nasal the Branch spray morning. fluticasone 2021-0 Yes [id number] 2{spray Use 2 [facility] prop[facility] 7-26 } Sprays in [facility] of 50 00:00: each [place] mcg/actuati 00 nostril in Me dical on nasal the Branch spray morning. fluticasone 2021-0 Yes [id number] 2{spray Use 2 [facility] prop[facility] 7-26 } Sprays in [facility] of 50 00:00: each [place] mcg/actuati 00 nostril in Me dical on nasal the Branch spray morning. fluticasone 2021-0 Yes [id number] 2{spray Use 2 [facility] prop[facility] 7-26 } Sprays in [facility] of 50 00:00: each [place] mcg/actuati 00 nostril in Me dical on nasal the Branch spray morning. fluticasone 2021-0 Yes [id number] 2{spray Use 2 [facility] prop[facility] 7-26 } Sprays in [facility] of 50 00:00: each [place] mcg/actuati 00 nostril in Me dical on nasal the Branch spray morning. fluticasone 2021-0 Yes [id number] 2{spray Use 2 [facility] prop[facility] 7-26 } Sprays in [facility] of 50 00:00: each [place] mcg/actuati 00 nostril in Me dical on nasal the Branch spray morning. fluticasone 2021-0 Yes [id number] 2{spray Use 2 [facility] prop[facility] 7-26 } Sprays in [facility] of 50 00:00: each [place] mcg/actuati 00 nostril in Me dical on nasal the Branch spray morning. fluticasone 0 Yes [id number] 2{spray Use 2 [facility] prop[facility] 7-26 } Sprays in [facility] of 50 00:00: each [place] mcg/actuati 00 nostril in Me dical on nasal the Branch spray morning. fluticasone 0 Yes [id number] 2{spray Use 2 [facility] prop[facility] 7-26 } Sprays in [facility] of 50 00:00: each [place] mcg/actuati 00 nostril in Me dical on nasal the Branch spray morning. fluticasone 0 Yes [id number] 2{spray Use 2 [facility] propionate 7-26 } Sprays in [facility] of 50 00:00: each [place] mcg/actuati 00 nostril in Me dical on nasal the Branch spray morning. fluticasone 0 Yes [id number] 2{spray Use 2 [facility] prop[facility] 7-26 } Sprays in [facility] of 50 00:00: each [place] mcg/actuati 00 nostril in Me dical on nasal the Branch spray morning. fluticasone 0 Yes [id number] 2{spray Use 2 [facility] prop[facility] 7-26 } Sprays in [facility] of 50 00:00: each [place] mcg/actuati 00 nostril in Me dical on nasal the Branch spray morning. fluticasone 2021-0 Yes [id number] 2{spray Use 2 [facility] prop[facility] 7-26 } Sprays in [facility] of 50 00:00: each [place] mcg/actuati 00 nostril in Me dical on nasal the Branch spray morning. fluticasone 2021-0 Yes [id number] 2{spray Use 2 [facility] prop[facility] 7-26 } Sprays in [facility] of 50 00:00: each [place] mcg/actuati 00 nostril in Me dical on nasal the Branch spray morning. fluticasone 2021-0 Yes [id number] 2{spray Use 2 [facility] prop[facility] 7-26 } Sprays in [facility] of 50 00:00: each [place] mcg/actuati 00 nostril in Me dical on nasal the Branch spray morning. fluticasone 0 Yes [id number] 2{spray Use 2 [facility] prop[facility] 7-26 } Sprays in [facility] of 50 00:00: each [place] mcg/actuati 00 nostril in Me dical on nasal the Branch spray morning. fluticasone 2021-0 Yes [id number] 2{spray Use 2 [facility] prop[facility] 7-26 } Sprays in [facility] of 50 00:00: each [place] mcg/actuati 00 nostril in Me dical on nasal the Branch spray morning. fluticasone 2021-0 Yes [id number] 2{spray Use 2 [facility] prop[facility] 7-26 } Sprays in [facility] of 50 00:00: each [place] mcg/actuati 00 nostril in Me dical on nasal the Branch spray morning. fluticasone 2021-0 Yes [id number] 2{spray Use 2 [facility] prop[facility] 7-26 } Sprays in [facility] of 50 00:00: each [place] mcg/actuati 00 nostril in Me dical on nasal the Branch spray morning. fluticasone 2021-0 Yes [id number] 2{spray Use 2 [facility] prop[facility] 7-26 } Sprays in [facility] of 50 00:00: each [place] mcg/actuati 00 nostril in Me dical on nasal the Branch spray morning. fluticasone 2021-0 Yes [id number] 2{spray Use 2 [facility] prop[facility] 7-26 } Sprays in [facility] of 50 00:00: each [place] mcg/actuati 00 nostril in Me dical on nasal the Branch spray morning. fluticasone 2021-0 Yes [id number] 2{spray Use 2 [facility] prop[facility] 7-26 } Sprays in [facility] of 50 00:00: each [place] mcg/actuati 00 nostril in Me dical on nasal the Branch spray morning. fluticasone 2021-0 Yes [id number] 2{spray Use 2 [facility] prop[facility] 7-26 } Sprays in [facility] of 50 00:00: each [place] mcg/actuati 00 nostril in Me dical on nasal the Branch spray morning. fluticasone 2021-0 Yes [id number] 2{spray Use 2 [facility] prop[facility] 7-26 } Sprays in [facility] of 50 00:00: each [place] mcg/actuati 00 nostril in Me dical on nasal the Branch spray morning. fluticasone 2021-0 Yes [id number] 2{spray Use 2 [facility] prop[facility] 7-26 } Sprays in [facility] of 50 00:00: each [place] mcg/actuati 00 nostril in Me dical on nasal the Branch spray morning. fluticasone 2021-0 Yes [id number] 2{spray Use 2 [facility] prop[facility] 7-26 } Sprays in [facility] of 50 00:00: each [place] mcg/actuati 00 nostril in Me dical on nasal the Branch spray morning. fluticasone 2021-0 Yes [id number] 2{spray Use 2 [facility] prop[facility] 7-26 } Sprays in [facility]y of 50 00:00: each [place] mcg/actuati 00 nostril in Me dical on nasal the Branch spray morning. fluticasone 2021-0 Yes [id number] 2{spray Use 2 [facility] prop[facility] 7-26 } Sprays in [facility]y of 50 00:00: each [place] mcg/actuati 00 nostril in Me dical on nasal the Branch spray morning. fluticasone 2021-0 Yes [id number] 2{spray Use 2 [facility] prop[facility] 7-26 } Sprays in [facility]y of 50 00:00: each [place] mcg/actuati 00 nostril in Me dical on nasal the Branch spray morning. fluticasone 2021-0 Yes [id number] 2{spray Use 2 [facility] prop[facility] 7-26 } Sprays in [facility]y of 50 00:00: each [place] mcg/actuati 00 nostril in Me dical on nasal the Branch spray morning. fluticasone 2021-0 Yes [id number] 2{spray Use 2 [facility] prop[facility] 7-26 } Sprays in [facility]y of 50 00:00: each [place] mcg/actuati 00 nostril in Me dical on nasal the Branch spray morning. fluticasone 2021-0 Yes [id number] 2{spray Use 2 [facility] prop[facility] 7-26 } Sprays in [facility]y of 50 00:00: each [place] mcg/actuati 00 nostril in Me dical on nasal the Branch spray morning. fluticasone 2021-0 Yes [id number] 2{spray Use 2 [facility] prop[facility] 7-26 } Sprays in [facility]y of 50 00:00: each [place] mcg/actuati 00 nostril in Me dical on nasal the Branch spray morning. fluticasone 2021-0 Yes [id number] 2{spray Use 2 [facility] prop[facility] 7-26 } Sprays in [facility]y of 50 00:00: each [place] mcg/actuati 00 nostril in Me dical on nasal the Branch spray morning. fluticasone 2021-0 Yes [id number] 2{spray Use 2 [facility] prop[facility] 7-26 } Sprays in [facility]y of 50 00:00: each [place] mcg/actuati 00 nostril in Me dical on nasal the Branch spray morning. fluticasone 2021-0 Yes [id number] 2{spray Use 2 [facility] prop[facility] 7-26 } Sprays in [facility]y of 50 00:00: each [place] mcg/actuati 00 nostril in Me dical on nasal the Branch spray morning. fluticasone 2021-0 Yes [id number] 2{spray Use 2 [facility] prop[facility] 7-26 } Sprays in [facility]y of 50 00:00: each [place] mcg/actuati 00 nostril in Me dical on nasal the Branch spray morning. fluticasone 2021-0 Yes [id number] 2{spray Use 2 [facility] prop[facility] 7-26 } Sprays in [facility]y of 50 00:00: each [place] mcg/actuati 00 nostril in Me dical on nasal the Branch spray morning. fluticasone 2021-0 Yes [id number] 2{spray Use 2 [facility] prop[facility] 7-26 } Sprays in [facility]y of 50 00:00: each [place] mcg/actuati 00 nostril in Me dical on nasal the Branch spray morning. fluticasone 2021-0 Yes [id number] 2{spray Use 2 [facility] prop[facility] 7-26 } Sprays in [facility]y of 50 00:00: each [place] mcg/actuati 00 nostril in Me dical on nasal the Branch spray morning. fluticasone 2021-0 Yes [id number] 2{spray Use 2 [facility] prop[facility] 7-26 } Sprays in ity of 50 00:00: each [place] mcg/actuati 00 nostril in Me dical on nasal the Branch spray morning. fluticasone 2021-0 Yes [id number] 2{spray Use 2 [facility] prop[facility] 7-26 } Sprays in [facility]y of 50 00:00: each [place] mcg/actuati 00 nostril in Me dical on nasal the Branch spray morning. fluticasone 2021-0 Yes [id number] 2{spray Use 2 [facility] propionate 7-26 } Sprays in ity of 50 00:00: each [place] mcg/actuati 00 nostril in Me dical on nasal the [facility] spray morning. fluticasone 2021-0 Yes [id number] 2{spray Use 2 [facility] propionate 7-26 } Sprays in ity of 50 00:00: each [place] mcg/actuati 00 nostril in Me dical on nasal the [facility] spray morning. azelastine 2021-0 Yes [id number] 1{spray Use 1 [facility] 137 mcg 7-26 } [place] in ity of (0.1 %) 00:00: each [place] nasal spray 00 nostril in Me dical the [facility] morning and 1 [place] in the evening. Use in each nostril as directed fluticasone 2021-0 Yes [id number] 2{spray Use 2 [facility] propionate 7-26 } Sprays in ity of 50 00:00: each [place] mcg/actuati 00 nostril in Me dical on nasal the [facility] spray morning. azelastine 2021-0 Yes [id number] 1{spray Use 1 [facility] 137 mcg 7-26 } [place] in ity of (0.1 %) 00:00: each [place] nasal spray 00 nostril in Me dical the [facility] morning and 1 [place] in the evening. Use in each nostril as directed fluticasone 2021-0 Yes [id number] 2{spray Use 2 [facility] propionate 7-26 } Sprays in ity of 50 00:00: each [place] mcg/actuati 00 nostril in Me dical on nasal the [facility] spray morning. azelastine 2021-0 Yes [id number] 1{spray Use 1 [facility] 137 mcg 7-26 } [place] in ity of (0.1 %) 00:00: each [place] nasal spray 00 nostril in Me dical the [facility] morning and 1 [place] in the evening. Use in each nostril as directed fluticasone 2021-0 Yes [id number] 2{spray Use 2 [facility] propionate 7-26 } Sprays in ity of 50 00:00: each [place] mcg/actuati 00 nostril in Me dical on nasal the [facility] spray morning. azelastine 2021-0 Yes [id number] 1{spray Use 1 [facility] 137 mcg 7-26 } [place] in ity of (0.1 %) 00:00: each [place] nasal spray 00 nostril in Me dical the [facility] morning and 1 [place] in the evening. Use in each nostril as directed fluticasone 2021-0 Yes [id number] 2{spray Use 2 [facility] propionate 7-26 } Sprays in ity of 50 00:00: each [place] mcg/actuati 00 nostril in Me dical on nasal the [facility] spray morning. azelastine 2021-0 Yes [id number] 1{spray Use 1 [facility] 137 mcg 7-26 } [place] in ity of (0.1 %) 00:00: each [place] nasal spray 00 nostril in Me dical the Branch morning and 1 [place] in the evening. Use in each nostril as directed fluticasone 2021-0 Yes [id number] 2{spray Use 2 [facility] propionate 7-26 } Sprays in ity of 50 00:00: each [place] mcg/actuati 00 nostril in Me dical on nasal the [facility] spray morning. azelastine 2021-0 Yes [id number] 1{spray Use 1 [facility] 137 mcg 7-26 } [place] in ity of (0.1 %) 00:00: each [place] nasal spray 00 nostril in Me dical the [facility] morning and 1 [place] in the evening. Use in each nostril as directed fluticasone 2021-0 Yes [id number] 2{spray Use 2 [facility] propionate 7-26 } Sprays in ity of 50 00:00: each [place] mcg/actuati 00 nostril in Me dical on nasal the [facility] spray morning. azelastine 2021-0 Yes [id number] 1{spray Use 1 [facility] 137 mcg 7-26 } [place] in ity of (0.1 %) 00:00: each [place] nasal spray 00 nostril in Me dical the [facility] morning and 1 [place] in the evening. Use in each nostril as directed fluticasone 2021-0 Yes [id number] 2{spray Use 2 [facility] propionate 7-26 } Sprays in ity of 50 00:00: each [place] mcg/actuati 00 nostril in Me dical on nasal the [facility] spray morning. azelastine 2021-0 Yes [id number] 1{spray Use 1 [facility] 137 mcg 7-26 } [place] in ity of (0.1 %) 00:00: each [place] nasal spray 00 nostril in Me dical the [facility] morning and 1 [place] in the evening. Use in each nostril as directed fluticasone 2021-0 Yes [id number] 2{spray Use 2 [facility] propionate 7-26 } Sprays in ity of 50 00:00: each [place] mcg/actuati 00 nostril in Me dical on nasal the [facility] spray morning. azelastine 2021-0 Yes [id number] 1{spray Use 1 [facility] 137 mcg 7-26 } [place] in ity of (0.1 %) 00:00: each [place] nasal spray 00 nostril in Me dical the Branch morning and 1 [place] in the evening. Use in each nostril as directed fluticasone 2021-0 Yes [id number] 2{spray Use 2 [facility] propionate 7-26 } Sprays in ity of 50 00:00: each [place] mcg/actuati 00 nostril in Me dical on nasal the [facility] spray morning. azelastine 2021-0 Yes [id number] 1{spray Use 1 [facility] 137 mcg 7-26 } [place] in ity of (0.1 %) 00:00: each [place] nasal spray 00 nostril in Me dical the Branch morning and 1 [place] in the evening. Use in each nostril as directed fluticasone 2021-0 Yes [id number] 2{spray Use 2 [facility] propionate 7-26 } Sprays in ity of 50 00:00: each [place] mcg/actuati 00 nostril in Me dical on nasal the [facility] spray morning. azelastine 2021-0 Yes [id number] 1{spray Use 1 [facility] 137 mcg 7-26 } [place] in ity of (0.1 %) 00:00: each [place] nasal spray 00 nostril in Me dical the [facility] morning and 1 [place] in the evening. Use in each nostril as directed fluticasone 2021-0 Yes [id number] 2{spray Use 2 [facility] propionate 7-26 } Sprays in ity of 50 00:00: each [place] mcg/actuati 00 nostril in Me dical on nasal the [facility] spray morning. azelastine 2021-0 Yes [id number] 1{spray Use 1 [facility] 137 mcg 7-26 } [place] in ity of (0.1 %) 00:00: each [place] nasal spray 00 nostril in Me dical the [facility] morning and 1 [place] in the evening. Use in each nostril as directed fluticasone 2021-0 Yes [id number] 2{spray Use 2 [facility] propionate 7-26 } Sprays in ity of 50 00:00: each [place] mcg/actuati 00 nostril in Me dical on nasal the [facility] spray morning. azelastine 2021-0 Yes [id number] 1{spray Use 1 [facility] 137 mcg 7-26 } [place] in ity of (0.1 %) 00:00: each [place] nasal spray 00 nostril in Me dical the Branch morning and 1 [place] in the evening. Use in each nostril as directed fluticasone 2021-0 Yes [id number] 2{spray Use 2 [facility] propionate 7-26 } Sprays in ity of 50 00:00: each [place] mcg/actuati 00 nostril in Me dical on nasal the [facility] spray morning. azelastine 2021-0 Yes [id number] 1{spray Use 1 [facility] 137 mcg 7-26 } [place] in ity of (0.1 %) 00:00: each [place] nasal spray 00 nostril in Me dical the [facility] morning and 1 [place] in the evening. Use in each nostril as directed fluticasone 2021-0 Yes [id number] 2{spray Use 2 [facility] propionate 7-26 } Sprays in ity of 50 00:00: each [place] mcg/actuati 00 nostril in Me dical on nasal the [facility] spray morning. azelastine 2021-0 Yes [id number] 1{spray Use 1 [facility] 137 mcg 7-26 } [place] in ity of (0.1 %) 00:00: each [place] nasal spray 00 nostril in Me dical the [facility] morning and 1 [place] in the evening. Use in each nostril as directed fluticasone 2021-0 Yes [id number] 2{spray Use 2 [facility] propionate 7-26 } Sprays in ity of 50 00:00: each [place] mcg/actuati 00 nostril in Me dical on nasal the [facility] spray morning. azelastine 2021-0 Yes [id number] 1{spray Use 1 [facility] 137 mcg 7-26 } [place] in ity of (0.1 %) 00:00: each [place] nasal spray 00 nostril in Me dical the [facility] morning and 1 [place] in the evening. Use in each nostril as directed fluticasone 2021-0 Yes [id number] 2{spray Use 2 [facility] propionate 7-26 } Sprays in ity of 50 00:00: each [place] mcg/actuati 00 nostril in Me dical on nasal the [facility] spray morning. azelastine 2021-0 Yes [id number] 1{spray Use 1 [facility] 137 mcg 7-26 } [place] in ity of (0.1 %) 00:00: each [place] nasal spray 00 nostril in Me dical the [facility] morning and 1 [place] in the evening. Use in each nostril as directed fluticasone 2021-0 Yes [id number] 2{spray Use 2 [facility] propionate 7-26 } Sprays in ity of 50 00:00: each [place] mcg/actuati 00 nostril in Me dical on nasal the [facility] spray morning. azelastine 2021-0 Yes [id number] 1{spray Use 1 [facility] 137 mcg 7-26 } [place] in ity of (0.1 %) 00:00: each [place] nasal spray 00 nostril in Me dical the [facility] morning and 1 [place] in the evening. Use in each nostril as directed fluticasone 2021-0 Yes [id number] 2{spray Use 2 [facility] propionate 7-26 } Sprays in ity of 50 00:00: each [place] mcg/actuati 00 nostril in Me dical on nasal the [facility] spray morning. azelastine 2021-0 Yes [id number] 1{spray Use 1 [facility] 137 mcg 7-26 } [place] in ity of (0.1 %) 00:00: each [place] nasal spray 00 nostril in Me dical the [facility] morning and 1 [place] in the evening. Use in each nostril as directed fluticasone 2021-0 Yes [id number] 2{spray Use 2 [facility] propionate 7-26 } Sprays in ity of 50 00:00: each [place] mcg/actuati 00 nostril in Me dical on nasal the [facility] spray morning. azelastine 2021-0 Yes [id number] 1{spray Use 1 [facility] 137 mcg 7-26 } [place] in ity of (0.1 %) 00:00: each [place] nasal spray 00 nostril in Me dical the [facility] morning and 1 [place] in the evening. Use in each nostril as directed fluticasone 2021-0 Yes [id number] 2{spray Use 2 [facility] propionate 7-26 } Sprays in ity of 50 00:00: each [place] mcg/actuati 00 nostril in Me dical on nasal the [facility] spray morning. azelastine 2021-0 Yes [id number] 1{spray Use 1 [facility] 137 mcg 7-26 } [place] in ity of (0.1 %) 00:00: each [place] nasal spray 00 nostril in Me dical the [facility] morning and 1 [place] in the evening. Use in each nostril as directed fluticasone 2021-0 Yes [id number] 2{spray Use 2 [facility] propionate 7-26 } Sprays in ity of 50 00:00: each [place] mcg/actuati 00 nostril in Me dical on nasal the [facility] spray morning. azelastine 2021-0 Yes [id number] 1{spray Use 1 [facility] 137 mcg 7-26 } [place] in ity of (0.1 %) 00:00: each [place] nasal spray 00 nostril in Me dical the [facility] morning and 1 [place] in the evening. Use in each nostril as directed fluticasone 2021-0 Yes [id number] 2{spray Use 2 [facility] propionate 7-26 } Sprays in ity of 50 00:00: each [place] mcg/actuati 00 nostril in Me dical on nasal the [facility] spray morning. azelastine 2021-0 Yes [id number] 1{spray Use 1 [facility] 137 mcg 7-26 } [place] in ity of (0.1 %) 00:00: each [place] nasal spray 00 nostril in Me dical the [facility] morning and 1 [place] in the evening. Use in each nostril as directed fluticasone 2021-0 Yes [id number] 2{spray Use 2 [facility] propionate 7-26 } Sprays in ity of 50 00:00: each [place] mcg/actuati 00 nostril in Me dical on nasal the [facility] spray morning. azelastine 2021-0 Yes [id number] 1{spray Use 1 [facility] 137 mcg 7-26 } [place] in ity of (0.1 %) 00:00: each [place] nasal spray 00 nostril in Me dical the [facility] morning and 1 [place] in the evening. Use in each nostril as directed fluticasone 2021-0 Yes [id number] 2{spray Use 2 [facility] propionate 7-26 } Sprays in ity of 50 00:00: each [place] mcg/actuati 00 nostril in Me dical on nasal the [facility] spray morning. azelastine 0 Yes [id number] 1{spray Use 1 [facility] 137 mcg 7-26 } [place] in ity of (0.1 %) 00:00: each [place] nasal spray 00 nostril in Me dical the [facility] morning and 1 [place] in the evening. Use in each nostril as directed fluticasone 2021-0 Yes [id number] 2{spray Use 2 [facility] propionate 7-26 } Sprays in ity of 50 00:00: each [place] mcg/actuati 00 nostril in Me dical on nasal the [facility] spray morning. azelastine 0 Yes [id number] 1{spray Use 1 [facility] 137 mcg 7-26 } [place] in ity of (0.1 %) 00:00: each [place] nasal spray 00 nostril in Me dical the [facility] morning and 1 [place] in the evening. Use in each nostril as directed fluticasone 2021-0 Yes [id number] 2{spray Use 2 [facility] propionate 7-26 } Sprays in ity of 50 00:00: each [place] mcg/actuati 00 nostril in Me dical on nasal the [facility] spray morning. azelastine 0 Yes [id number] 1{spray Use 1 [facility] 137 mcg 7-26 } [place] in ity of (0.1 %) 00:00: each [place] nasal spray 00 nostril in Me dical the [facility] morning and 1 [place] in the evening. Use in each nostril as directed fluticasone 2021-0 Yes [id number] 2{spray Use 2 [facility] propionate 7-26 } Sprays in ity of 50 00:00: each [place] mcg/actuati 00 nostril in Me dical on nasal the [facility] spray morning. azelastine 2021-0 Yes [id number] 1{spray Use 1 [facility] 137 mcg 7-26 } [place] in ity of (0.1 %) 00:00: each [place] nasal spray 00 nostril in Me dical the [facility] morning and 1 [place] in the evening. Use in each nostril as directed fluticasone 2021-0 Yes [id number] 2{spray Use 2 [facility] propionate 7-26 } Sprays in ity of 50 00:00: each [place] mcg/actuati 00 nostril in Me dical on nasal the [facility] spray morning. azelastine 0 Yes [id number] 1{spray Use 1 [facility] 137 mcg 7-26 } [place] in ity of (0.1 %) 00:00: each [place] nasal spray 00 nostril in Me dical the [facility] morning and 1 [place] in the evening. Use in each nostril as directed fluticasone 2021-0 Yes [id number] 2{spray Use 2 [facility] propionate 7-26 } Sprays in ity of 50 00:00: each [place] mcg/actuati 00 nostril in Me dical on nasal the [facility] spray morning. azelastine 0 Yes [id number] 1{spray Use 1 [facility] 137 mcg 7-26 } [place] in ity of (0.1 %) 00:00: each [place] nasal spray 00 nostril in Me dical the [facility] morning and 1 [place] in the evening. Use in each nostril as directed fluticasone 2021-0 Yes [id number] 2{spray Use 2 [facility] propionate 7-26 } Sprays in ity of 50 00:00: each [place] mcg/actuati 00 nostril in Me dical on nasal the [facility] spray morning. azelastine 0 Yes [id number] 1{spray Use 1 [facility] 137 mcg 7-26 } [place] in ity of (0.1 %) 00:00: each [place] nasal spray 00 nostril in Me dical the [facility] morning and 1 [place] in the evening. Use in each nostril as directed fluticasone 2021-0 Yes [id number] 2{spray Use 2 [facility] propionate 7-26 } Sprays in ity of 50 00:00: each [place] mcg/actuati 00 nostril in Me dical on nasal the [facility] spray morning. azelastine 2021-0 Yes [id number] 1{spray Use 1 [facility] 137 mcg 7-26 } [place] in ity of (0.1 %) 00:00: each [place] nasal spray 00 nostril in Me dical the [facility] morning and 1 [place] in the evening. Use in each nostril as directed fluticasone 2022-0 Yes [id number] 2{spray Use 2 [facility] propionate 7-26 } Sprays in ity of 50 00:00: each [place] mcg/actuati 00 nostril in Me dical on nasal the [facility] spray morning. azelastine Yes [id number] 1{spray Use 1 [facility] 137 mcg 7-26 } [place] in ity of (0.1 %) 00:00: each [place] nasal spray 00 nostril in Me dical the [facility] morning and 1 [place] in the evening. Use in each nostril as directed fluticasone Yes [id number] 2{spray Use 2 [facility] propionate 7-26 } Sprays in ity of 50 00:00: each [place] mcg/actuati 00 nostril in Me dical on nasal the [facility] spray morning. azelastine Yes [id number] 1{spray Use 1 [facility] 137 mcg 7-26 } [place] in ity of (0.1 %) 00:00: each [place] nasal spray 00 nostril in Me dical the [facility] morning and 1 [place] in the evening. Use in each nostril as directed fluticasone 2021- Yes [id number] 2{spray Use 2 [facility] propionate 7-26 } Sprays in ity of 50 00:00: each [place] mcg/actuati 00 nostril in Me dical on nasal the [facility] spray morning. azelastine Yes [id number] 1{spray Use 1 [facility] 137 mcg 7-26 } [place] in ity of (0.1 %) 00:00: each [place] nasal spray 00 nostril in Me dical the [facility] morning and 1 [place] in the evening. Use in each nostril as directed fluticasone 2021-0 Yes [id number] 2{spray Use 2 [facility] propionate 7-26 } Sprays in ity of 50 00:00: each [place] mcg/actuati 00 nostril in Me dical on nasal the [facility] spray morning. azelastine 0 Yes [id number] 1{spray Use 1 [facility] 137 mcg 7-26 } [place] in ity of (0.1 %) 00:00: each [place] nasal spray 00 nostril in Me dical the [facility] morning and 1 [place] in the evening. Use in each nostril as directed fluticasone Yes [id number] 2{spray Use 2 [facility] propionate 7-26 } Sprays in ity of 50 00:00: each [place] mcg/actuati 00 nostril in Me dical on nasal the [facility] spray morning. azelastine Yes [id number] 1{spray Use 1 [facility] 137 mcg 7-26 } [place] in ity of (0.1 %) 00:00: each [place] nasal spray 00 nostril in Me dical the [facility] morning and 1 [place] in the evening. Use in each nostril as directed fluticasone Yes [id number] 2{spray Use 2 [facility] propionate 7-26 } Sprays in ity of 50 00:00: each [place] mcg/actuati 00 nostril in Me dical on nasal the [facility] spray morning. azelastine Yes [id number] 1{spray Use 1 [facility] 137 mcg 7-26 } [place] in ity of (0.1 %) 00:00: each [place] nasal spray 00 nostril in Me dical the [facility] morning and 1 [place] in the evening. Use in each nostril as directed fluticasone Yes [id number] 2{spray Use 2 [facility] propionate 7-26 } Sprays in ity of 50 00:00: each [place] mcg/actuati 00 nostril in Me dical on nasal the [facility] spray morning. azelastine Yes [id number] 1{spray Use 1 [facility] 137 mcg 7-26 } [place] in ity of (0.1 %) 00:00: each [place] nasal spray 00 nostril in Me dical the [facility] morning and 1 [place] in the evening. Use in each nostril as directed fluticasone 2021- Yes [id number] 2{spray Use 2 [facility] propionate 7-26 } Sprays in ity of 50 00:00: each [place] mcg/actuati 00 nostril in Me dical on nasal the [facility] spray morning. azelastine 2021-0 Yes [id number] 1{spray Use 1 [facility] 137 mcg 7-26 } [place] in ity of (0.1 %) 00:00: each [place] nasal spray 00 nostril in Me dical the [facility] morning and 1 [place] in the evening. Use in each nostril as directed fluticasone 2021-0 Yes [id number] 2{spray Use 2 [facility] propionate 7-26 } Sprays in ity of 50 00:00: each [place] mcg/actuati 00 nostril in Me dical on nasal the [facility] spray morning. azelastine 2021-0 Yes [id number] 1{spray Use 1 [facility] 137 mcg 7-26 } [place] in ity of (0.1 %) 00:00: each [place] nasal spray 00 nostril in Me dical the [facility] morning and 1 [place] in the evening. Use in each nostril as directed fluticasone 2021-0 Yes [id number] 2{spray Use 2 [facility] propionate 7-26 } Sprays in ity of 50 00:00: each [place] mcg/actuati 00 nostril in Me dical on nasal the [facility] spray morning. azelastine 2021-0 Yes [id number] 1{spray Use 1 [facility] 137 mcg 7-26 } [place] in ity of (0.1 %) 00:00: each [place] nasal spray 00 nostril in Me dical the [facility] morning and 1 [place] in the evening. Use in each nostril as directed fluticasone 2021-0 Yes [id number] 2{spray Use 2 [facility] propionate 7-26 } Sprays in ity of 50 00:00: each [place] mcg/actuati 00 nostril in Me dical on nasal the [facility] spray morning. azelastine 2021-0 Yes [id number] 1{spray Use 1 [facility] 137 mcg 7-26 } [place] in ity of (0.1 %) 00:00: each [place] nasal spray 00 nostril in Me dical the [facility] morning and 1 [place] in the evening. Use in each nostril as directed fluticasone 2021-0 Yes [id number] 2{spray Use 2 [facility] propionate 7-26 } Sprays in ity of 50 00:00: each [place] mcg/actuati 00 nostril in Me dical on nasal the [facility] spray morning. azelastine 2021-0 Yes [id number] 1{spray Use 1 [facility] 137 mcg 7-26 } [place] in ity of (0.1 %) 00:00: each [place] nasal spray 00 nostril in Me dical the [facility] morning and 1 [place] in the evening. Use in each nostril as directed fluticasone 2021-0 Yes [id number] 2{spray Use 2 [facility] propionate 7-26 } Sprays in ity of 50 00:00: each [place] mcg/actuati 00 nostril in Me dical on nasal the [facility] spray morning. azelastine 2021-0 Yes [id number] 1{spray Use 1 [facility] 137 mcg 7-26 } [place] in ity of (0.1 %) 00:00: each [place] nasal spray 00 nostril in Me dical the [facility] morning and 1 [place] in the evening. Use in each nostril as directed fluticasone 2021-0 Yes [id number] 2{spray Use 2 [facility] propionate 7-26 } Sprays in ity of 50 00:00: each [place] mcg/actuati 00 nostril in Me dical on nasal the [facility] spray morning. azelastine 2021-0 Yes [id number] 1{spray Use 1 [facility] 137 mcg 7-26 } [place] in ity of (0.1 %) 00:00: each [place] nasal spray 00 nostril in Me dical the [facility] morning and 1 [place] in the evening. Use in each nostril as directed fluticasone 2021-0 Yes [id number] 2{spray Use 2 [facility] propionate 7-26 } Sprays in ity of 50 00:00: each [place] mcg/actuati 00 nostril in Me dical on nasal the [facility] spray morning. azelastine 2021-0 Yes [id number] 1{spray Use 1 [facility] 137 mcg 7-26 } [place] in ity of (0.1 %) 00:00: each [place] nasal spray 00 nostril in Me dical the [facility] morning and 1 [place] in the evening. Use in each nostril as directed fluticasone 2021-0 Yes [id number] 2{spray Use 2 [facility] propionate 7-26 } Sprays in ity of 50 00:00: each [place] mcg/actuati 00 nostril in Me dical on nasal the [facility] spray morning. azelastine 2021-0 Yes [id number] 1{spray Use 1 [facility] 137 mcg 7-26 } [place] in ity of (0.1 %) 00:00: each [place] nasal spray 00 nostril in Me dical the [facility] morning and 1 [place] in the evening. Use in each nostril as directed fluticasone 2021-0 Yes [id number] 2{spray Use 2 [facility] propionate 7-26 } Sprays in ity of 50 00:00: each [place] mcg/actuati 00 nostril in Me dical on nasal the [facility] spray morning. azelastine 2021-0 Yes [id number] 1{spray Use 1 [facility] 137 mcg 7-26 } [place] in ity of (0.1 %) 00:00: each [place] nasal spray 00 nostril in Me dical the [facility] morning and 1 [place] in the evening. Use in each nostril as directed fluticasone 2021-0 Yes [id number] 2{spray Use 2 [facility] propionate 7-26 } Sprays in ity of 50 00:00: each [place] mcg/actuati 00 nostril in Me dical on nasal the [facility] spray morning. azelastine 2021-0 Yes [id number] 1{spray Use 1 [facility] 137 mcg 7-26 } [place] in ity of (0.1 %) 00:00: each [place] nasal spray 00 nostril in Me dical the [facility] morning and 1 [place] in the evening. Use in each nostril as directed fluticasone 2021-0 Yes [id number] 2{spray Use 2 [facility] propionate 7-26 } Sprays in ity of 50 00:00: each [place] mcg/actuati 00 nostril in Me dical on nasal the [facility] spray morning. azelastine 2021-0 Yes [id number] 1{spray Use 1 [facility] 137 mcg 7-26 } [place] in ity of (0.1 %) 00:00: each [place] nasal spray 00 nostril in Me dical the [facility] morning and 1 [place] in the evening. Use in each nostril as directed fluticasone 2021-0 Yes [id number] 2{spray Use 2 [facility] propionate 7-26 } Sprays in ity of 50 00:00: each [place] mcg/actuati 00 nostril in Me dical on nasal the [facility] spray morning. azelastine 2021-0 Yes [id number] 1{spray Use 1 [facility] 137 mcg 7-26 } [place] in ity of (0.1 %) 00:00: each [place] nasal spray 00 nostril in Me dical the [facility] morning and 1 [place] in the evening. Use in each nostril as directed fluticasone 2021-0 Yes [id number] 2{spray Use 2 [facility] propionate 7-26 } Sprays in ity of 50 00:00: each [place] mcg/actuati 00 nostril in Me dical on nasal the [facility] spray morning. azelastine 2021-0 Yes [id number] 1{spray Use 1 [facility] 137 mcg 7-26 } [place] in ity of (0.1 %) 00:00: each [place] nasal spray 00 nostril in Me dical the [facility] morning and 1 [place] in the evening. Use in each nostril as directed fluticasone 2021-0 Yes [id number] 2{spray Use 2 [facility] propionate 7-26 } Sprays in ity of 50 00:00: each [place] mcg/actuati 00 nostril in Me dical on nasal the [facility] spray morning. azelastine 2021-0 Yes [id number] 1{spray Use 1 [facility] 137 mcg 7-26 } [place] in ity of (0.1 %) 00:00: each [place] nasal spray 00 nostril in Me dical the [facility] morning and 1 [place] in the evening. Use in each nostril as directed fluticasone 2021-0 Yes [id number] 2{spray Use 2 [facility] propionate 7-26 } Sprays in ity of 50 00:00: each [place] mcg/actuati 00 nostril in Me dical on nasal the [facility] spray morning. azelastine 2021-0 Yes [id number] 1{spray Use 1 [facility] 137 mcg 7-26 } [place] in ity of (0.1 %) 00:00: each [place] nasal spray 00 nostril in Me dical the [facility] morning and 1 [place] in the evening. Use in each nostril as directed fluticasone 2021-0 Yes [id number] 2{spray Use 2 [facility] propionate 7-26 } Sprays in ity of 50 00:00: each [place] mcg/actuati 00 nostril in Me dical on nasal the [facility] spray morning. azelastine 2021-0 Yes [id number] 1{spray Use 1 [facility] 137 mcg 7-26 } [place] in ity of (0.1 %) 00:00: each [place] nasal spray 00 nostril in Me dical the [facility] morning and 1 [place] in the evening. Use in each nostril as directed fluticasone 2021-0 Yes [id number] 2{spray Use 2 [facility] propionate 7-26 } Sprays in ity of 50 00:00: each [place] mcg/actuati 00 nostril in Me dical on nasal the [facility] spray morning. azelastine 2021-0 Yes [id number] 1{spray Use 1 [facility] 137 mcg 7-26 } [place] in ity of (0.1 %) 00:00: each [place] nasal spray 00 nostril in Me dical the [facility] morning and 1 [place] in the evening. Use in each nostril as directed fluticasone 2021-0 Yes [id number] 2{spray Use 2 [facility] propionate 7-26 } Sprays in ity of 50 00:00: each [place] mcg/actuati 00 nostril in Me dical on nasal the [facility] spray morning. azelastine 2021-0 Yes [id number] 1{spray Use 1 [facility] 137 mcg 7-26 } [place] in ity of (0.1 %) 00:00: each [place] nasal spray 00 nostril in Me dical the [facility] morning and 1 [place] in the evening. Use in each nostril as directed fluticasone 2021-0 Yes [id number] 2{spray Use 2 [facility] propionate 7-26 } Sprays in ity of 50 00:00: each [place] mcg/actuati 00 nostril in Me dical on nasal the [facility] spray morning. azelastine 2021-0 Yes [id number] 1{spray Use 1 [facility] 137 mcg 7-26 } [place] in ity of (0.1 %) 00:00: each [place] nasal spray 00 nostril in Me dical the Branch morning and 1 [place] in the evening. Use in each nostril as directed fluticasone 2021-0 Yes [id number] 2{spray Use 2 [facility] propionate 7-26 } [place] in ity of 50 00:00: each [place] mcg/actuati 00 nostril in Me dical on nasal the Branch spray morning. azelastine 2021-0 Yes [id number] 1{spray Use 1 [facility] 137 mcg 7-26 } [place] in ity of (0.1 %) 00:00: each [place] nasal spray 00 nostril in Me dical the Branch morning and 1 [place] in the evening. Use in each nostril as directed fluticasone 2021-0 Yes [id number] 2{spray Use 2 [facility] propionate 7-26 } Sprays in ity of 50 00:00: each [place] mcg/actuati 00 nostril in Me dical on nasal the Branch spray morning. azelastine 2021-0 Yes [id number] 1{spray Use 1 [facility] 137 mcg 7-26 } [place] in ity of (0.1 %) 00:00: each [place] nasal spray 00 nostril in Me dical the Branch morning and 1 [place] in the evening. Use in each nostril as directed fluticasone 2021-0 Yes [id number] 2{spray Use 2 [facility] propionate 7-26 } Sprays in ity of 50 00:00: each [place] mcg/actuati 00 nostril in Me dical on nasal the Branch spray morning. azelastine 2021-0 Yes [id number] 1{spray Use 1 [facility] 137 mcg 7-26 } [place] in ity of (0.1 %) 00:00: each [place] nasal spray 00 nostril in Me dical the Branch morning and 1 [place] in the evening. Use in each nostril as directed fluticasone 2021-0 Yes [id number] 2{spray Use 2 [facility] propionate 7-26 } Sprays in ity of 50 00:00: each [place] mcg/actuati 00 nostril in Me dical on nasal the Branch spray morning. fluticasone 2021-0 Yes [id number] 2{spray Use 2 [facility] propionate 7-26 } Sprays in ity of 50 00:00: each [place] mcg/actuati 00 nostril in Me dical on nasal the Branch spray morning. fluticasone 2021-0 Yes [id number] 2{spray Use 2 [facility] propionate 7-26 } Sprays in ity of 50 00:00: each [place] mcg/actuati 00 nostril in Me dical on nasal the Branch spray morning. fluticasone 2021-0 Yes [id number] 2{spray Use 2 [facility] propionate 7-26 } Sprays in ity of 50 00:00: each [place] mcg/actuati 00 nostril in Me dical on nasal the Branch spray morning. fluticasone 2021-0 Yes [id number] 2{spray Use 2 [facility] propionate 7-26 } Sprays in ity of 50 00:00: each [place] mcg/actuati 00 nostril in Me dical on nasal the Branch spray morning. fluticasone 2021-0 Yes [id number] 2{spray Use 2 [facility] propionate 7-26 } Sprays in ity of 50 00:00: each [place] mcg/actuati 00 nostril in Me dical on nasal the Branch spray morning. fluticasone 0 Yes [id number] 2{spray Use 2 [facility] propionate 7-26 } Sprays in ity of 50 00:00: each [place] mcg/actuati 00 nostril in Me dical on nasal the Branch spray morning. fluticasone 2021-0 Yes [id number] 2{spray Use 2 [facility] propionate 7-26 } Sprays in ity of 50 00:00: each [place] mcg/actuati 00 nostril in Me dical on nasal the Branch spray morning. fluticasone 2021-0 Yes [id number] 2{spray Use 2 [facility] propionate 7-26 } Sprays in ity of 50 00:00: each [place] mcg/actuati 00 nostril in Me dical on nasal the Branch spray morning. fluticasone 0 Yes [id number] 2{spray Use 2 [facility] propionate 7-26 } Sprays in ity of 50 00:00: each [place] mcg/actuati 00 nostril in Me dical on nasal the Branch spray morning. fluticasone 2021-0 Yes [id number] 2{spray Use 2 [facility] propionate 7-26 } Sprays in ity of 50 00:00: each [place] mcg/actuati 00 nostril in Me dical on nasal the Branch spray morning. fluticasone 2021-0 Yes [id number] 2{spray Use 2 [facility] propionate 7-26 } Sprays in ity of 50 00:00: each [place] mcg/actuati 00 nostril in Me dical on nasal the Branch spray morning. fluticasone 2021-0 Yes [id number] 2{spray Use 2 [facility] propionate 7-26 } Sprays in ity of 50 00:00: each [place] mcg/actuati 00 nostril in Me dical on nasal the Branch spray morning. fluticasone 2021-0 Yes [id number] 2{spray Use 2 [facility] propionate 7-26 } Sprays in ity of 50 00:00: each [place] mcg/actuati 00 nostril in Me dical on nasal the Branch spray morning. fluticasone 2021-0 Yes [id number] 2{spray Use 2 [facility] propionate 7-26 } Sprays in ity of 50 00:00: each [place] mcg/actuati 00 nostril in Me dical on nasal the Branch spray morning. fluticasone 2021-0 Yes [id number] 2{spray Use 2 [facility] propionate 7-26 } Sprays in ity of 50 00:00: each [place] mcg/actuati 00 nostril in Me dical on nasal the Branch spray morning. fluticasone 2021-0 Yes [id number] 2{spray Use 2 [facility] propionate 7-26 } Sprays in ity of 50 00:00: each [place] mcg/actuati 00 nostril in Me dical on nasal the Branch spray morning. fluticasone 2021-0 Yes [id number] 2{spray Use 2 [facility] propionate 7-26 } Sprays in ity of 50 00:00: each [place] mcg/actuati 00 nostril in Me dical on nasal the Branch spray morning. fluticasone 2021-0 Yes [id number] 2{spray Use 2 [facility] propionate 7-26 } Sprays in ity of 50 00:00: each [place] mcg/actuati 00 nostril in Me dical on nasal the Branch spray morning. fluticasone 2021-0 Yes [id number] 2{spray Use 2 [facility] propionate 7-26 } Sprays in ity of 50 00:00: each [place] mcg/actuati 00 nostril in Me dical on nasal the Branch spray morning. fluticasone 2021-0 Yes [id number] 2{spray Use 2 [facility] propionate 7-26 } Sprays in ity of 50 00:00: each [place] mcg/actuati 00 nostril in Me dical on nasal the Branch spray morning. fluticasone 2021-0 Yes [id number] 2{spray Use 2 [facility] propionate 7-26 } Sprays in ity of 50 00:00: each [place] mcg/actuati 00 nostril in Me dical on nasal the Branch spray morning. fluticasone 2021-0 Yes [id number] 2{spray Use 2 [facility] propionate 7-26 } Sprays in ity of 50 00:00: each [place] mcg/actuati 00 nostril in Me dical on nasal the Branch spray morning. fluticasone 2021-0 Yes [id number] 2{spray Use 2 [facility] propionate 7-26 } Sprays in ity of 50 00:00: each [place] mcg/actuati 00 nostril in Me dical on nasal the Branch spray morning. fluticasone 2021-0 Yes [id number] 2{spray Use 2 [facility] propionate 7-26 } Sprays in ity of 50 00:00: each [place] mcg/actuati 00 nostril in Me dical on nasal the Branch spray morning. fluticasone 2021-0 Yes [id number] 2{spray Use 2 [facility] propionate 7-26 } Sprays in ity of 50 00:00: each [place] mcg/actuati 00 nostril in Me dical on nasal the Branch spray morning. fluticasone 2021-0 Yes [id number] 2{spray Use 2 [facility] propionate 7-26 } Sprays in ity of 50 00:00: each [place] mcg/actuati 00 nostril in Me dical on nasal the Branch spray morning. fluticasone 2021-0 Yes [id number] 2{spray Use 2 [facility] propionate 7-26 } Sprays in ity of 50 00:00: each [place] mcg/actuati 00 nostril in Me dical on nasal the Branch spray morning. fluticasone 2021-0 Yes [id number] 2{spray Use 2 [facility] propionate 7-26 } Sprays in ity of 50 00:00: each [place] mcg/actuati 00 nostril in Me dical on nasal the Branch spray morning. fluticasone 2021-0 Yes [id number] 2{spray Use 2 [facility] propionate 7-26 } Sprays in ity of 50 00:00: each [place] mcg/actuati 00 nostril in Me dical on nasal the Branch spray morning. fluticasone 2021-0 Yes [id number] 2{spray Use 2 [facility] propionate 7-26 } Sprays in ity of 50 00:00: each [place] mcg/actuati 00 nostril in Me dical on nasal the Branch spray morning. fluticasone 2021-0 Yes [id number] 2{spray Use 2 [facility] propionate 7-26 } Sprays in ity of 50 00:00: each [place] mcg/actuati 00 nostril in Me dical on nasal the Branch spray morning. fluticasone 2021-0 Yes [id number] 2{spray Use 2 [facility] propionate 7-26 } Sprays in ity of 50 00:00: each [place] mcg/actuati 00 nostril in Me dical on nasal the Branch spray morning. fluticasone 2021-0 Yes [id number] 2{spray Use 2 [facility] propionate 7-26 } Sprays in ity of 50 00:00: each [place] mcg/actuati 00 nostril in Me dical on nasal the Branch spray morning. fluticasone 2021-0 Yes [id number] 2{spray Use 2 [facility] propionate 7-26 } Sprays in ity of 50 00:00: each [place] mcg/actuati 00 nostril in Me dical on nasal the Branch spray morning. fluticasone 2021-0 Yes [id number] 2{spray Use 2 [facility] propionate 7-26 } Sprays in ity of 50 00:00: each [place] mcg/actuati 00 nostril in Me dical on nasal the Branch spray morning. fluticasone 2021-0 Yes [id number] 2{spray Use 2 [facility] propionate 7-26 } Sprays in ity of 50 00:00: each [place] mcg/actuati 00 nostril in Me dical on nasal the Branch spray morning. fluticasone 2021-0 Yes [id number] 2{spray Use 2 [facility] propionate 7-26 } Sprays in ity of 50 00:00: each [place] mcg/actuati 00 nostril in Me dical on nasal the Branch spray morning. fluticasone 2021-0 Yes [id number] 2{spray Use 2 [facility] propionate 7-26 } Sprays in ity of 50 00:00: each [place] mcg/actuati 00 nostril in Me dical on nasal the Branch spray morning. fluticasone 2021-0 Yes [id number] 2{spray Use 2 [facility] propionate 7-26 } Sprays in ity of 50 00:00: each [place] mcg/actuati 00 nostril in Me dical on nasal the Branch spray morning. fluticasone 2021-0 Yes [id number] 2{spray Use 2 [facility] propionate 7-26 } Sprays in ity of 50 00:00: each [place] mcg/actuati 00 nostril in Me dical on nasal the Branch spray morning. fluticasone 2021-0 Yes [id number] 2{spray Use 2 [facility] propionate 7-26 } Sprays in ity of 50 00:00: each [place] mcg/actuati 00 nostril in Me dical on nasal the Branch spray morning. fluticasone 2021-0 Yes [id number] 2{spray Use 2 [facility] propionate 7-26 } Sprays in ity of 50 00:00: each [place] mcg/actuati 00 nostril in Me dical on nasal the Branch spray morning. fluticasone 2021-0 Yes [id number] 2{spray Use 2 [facility] propionate 7-26 } Sprays in ity of 50 00:00: each [place] mcg/actuati 00 nostril in Me dical on nasal the Branch spray morning. fluticasone 2021-0 Yes [id number] 2{spray Use 2 [facility] propionate 7-26 } Sprays in ity of 50 00:00: each [place] mcg/actuati 00 nostril in Me dical on nasal the Branch spray morning. fluticasone 2021-0 Yes [id number] 2{spray Use 2 [facility] propionate 7-26 } Sprays in ity of 50 00:00: each [place] mcg/actuati 00 nostril in Me dical on nasal the Branch spray morning. fluticasone 2021-0 Yes [id number] 2{spray Use 2 [facility] propionate 7-26 } Sprays in ity of 50 00:00: each [place] mcg/actuati 00 nostril in Me dical on nasal the Branch spray morning. fluticasone 2021-0 Yes [id number] 2{spray Use 2 [facility] propionate 7-26 } Sprays in ity of 50 00:00: each [place] mcg/actuati 00 nostril in Me dical on nasal the Branch spray morning. fluticasone 2021-0 Yes [id number] 2{spray Use 2 [facility] propionate 7-26 } Sprays in ity of 50 00:00: each [place] mcg/actuati 00 nostril in Me dical on nasal the Branch spray morning. fluticasone 2-0 Yes [id number] 2{spray Use 2 [facility] propionate 7-26 } Sprays in ity of 50 00:00: each [place] mcg/actuati 00 nostril in Me dical on nasal the Branch spray morning. fluticasone 2021-0 Yes [id number] 2{spray Use 2 [facility] propionate 7-26 } Sprays in ity of 50 00:00: each [place] mcg/actuati 00 nostril in Me dical on nasal the Branch spray morning. fluticasone 2021-0 Yes [id number] 2{spray Use 2 [facility] propionate 7-26 } Sprays in ity of 50 00:00: each [place] mcg/actuati 00 nostril in Me dical on nasal the Branch spray morning. fluticasone 2021-0 Yes [id number] 2{spray Use 2 [facility] propionate 7-26 } Sprays in ity of 50 00:00: each [place] mcg/actuati 00 nostril in Me dical on nasal the Branch spray morning. fluticasone 2021-0 Yes [id number] 2{spray Use 2 [facility] propionate 7-26 } Sprays in ity of 50 00:00: each [place] mcg/actuati 00 nostril in Me dical on nasal the Branch spray morning. fluticasone 2021-0 Yes [id number] 2{spray Use 2 [facility] propionate 7-26 } Sprays in ity of 50 00:00: each [place] mcg/actuati 00 nostril in Me dical on nasal the Branch spray morning. fluticasone 2021-0 Yes [id number] 2{spray Use 2 [facility] propionate 7-26 } Sprays in ity of 50 00:00: each [place] mcg/actuati 00 nostril in Me dical on nasal the Branch spray morning. fluticasone 2021-0 Yes [id number] 2{spray Use 2 [facility] propionate 7-26 } Sprays in ity of 50 00:00: each [place] mcg/actuati 00 nostril in Me dical on nasal the Branch spray morning. fluticasone 2021-0 Yes [id number] 2{spray Use 2 [facility] propionate 7-26 } Sprays in ity of 50 00:00: each [place] mcg/actuati 00 nostril in Me dical on nasal the Branch spray morning. fluticasone 2021-0 Yes [id number] 2{spray Use 2 [facility] propionate 7-26 } Sprays in ity of 50 00:00: each [place] mcg/actuati 00 nostril in Me dical on nasal the Branch spray morning. fluticasone 2021-0 Yes [id number] 2{spray Use 2 [facility] propionate 7-26 } Sprays in ity of 50 00:00: each [place] mcg/actuati 00 nostril in Me dical on nasal the Branch spray morning. fluticasone 0 Yes [id number] 2{spray Use 2 [facility] propionate 7-26 } Sprays in ity of 50 00:00: each [place] mcg/actuati 00 nostril in Me dical on nasal the Branch spray morning. fluticasone 0 Yes [id number] 2{spray Use 2 [facility] propionate 7-26 } Sprays in ity of 50 00:00: each [place] mcg/actuati 00 nostril in Me dical on nasal the Branch spray morning. fluticasone Yes [id number] 2{spray Use 2 [facility] propionate 7-26 } Sprays in ity of 50 00:00: each [place] mcg/actuati 00 nostril in Me dical on nasal the Branch spray morning. fluticasone Yes [id number] 2{spray Use 2 [facility] propionate 7-26 } Sprays in ity of 50 00:00: each [place] mcg/actuati 00 nostril in Me dical on nasal the Branch spray morning. fluticasone Yes [id number] 2{spray Use 2 [facility] propionate 7-26 } Sprays in ity of 50 00:00: each [place] mcg/actuati 00 nostril in Me dical on nasal the Branch spray morning. fluticasone Yes [id number] 2{spray Use 2 [facility] propionate 7-26 } Sprays in ity of 50 00:00: each [place] mcg/actuati 00 nostril in Me dical on nasal the Branch spray morning. azelastine 2022- No [id number] 1{spray Use 1 [facility] 137 mcg 7-26 01-05 } [place] in ity of (0.1 %) 00:00: 00:00 each [place] nasal spray 00 :00 nostril in Me dical the Branch morning and 1 [place] in the evening. Use in each nostril as directed azelastine 2022- No [id number] 1{spray Use 1 [facility] 137 mcg 7-26 01-05 } [place] in ity of (0.1 %) 00:00: 00:00 each [place] nasal spray 00 :00 nostril in Me dical the Branch morning and 1 [place] in the evening. Use in each nostril as directed atorvastati 2021-0 Yes [id number] 40mg Take 1 [facility] n 40 mg 7-25 tablet by ity of tablet 00:00: mouth in [place] 00 the Medical morning. Branch atorvastati 2021-0 Yes [id number] 40mg Take 1 [facility] n 40 mg 7-25 tablet by ity of tablet 00:00: mouth in [place] 00 the Medical morning. Branch atorvastati 2021-0 Yes [id number] 40mg Take 1 [facility] n 40 mg 7-25 tablet by ity of tablet 00:00: mouth in [place] 00 the Medical morning. Branch atorvastati Yes [id number] 40mg Take 1 [facility] n 40 mg 7-25 tablet by ity of tablet 00:00: mouth in [place] 00 the Medical morning. Branch atorvastati Yes [id number] 40mg Take 1 [facility] n 40 mg 7-25 tablet by ity of tablet 00:00: mouth in [place] 00 the Medical morning. Branch atorvastati 0 Yes [id number] 40mg Take 1 [facility] n 40 mg 7-25 tablet by ity of tablet 00:00: mouth in [place] 00 the Medical morning. Branch atorvastati Yes [id number] 40mg Take 1 [facility] n 40 mg 7-25 tablet by ity of tablet 00:00: mouth in [place] 00 the Medical morning. Branch atorvastati 0 Yes [id number] 40mg Take 1 [facility] n 40 mg 7-25 tablet by ity of tablet 00:00: mouth in [place] 00 the Medical morning. Branch atorvastati 0 Yes [id number] 40mg Take 1 [facility] n 40 mg 7-25 tablet by ity of tablet 00:00: mouth in [place] 00 the Medical morning. Branch atorvastati 0 Yes [id number] 40mg Take 1 [facility] n 40 mg 7-25 tablet by ity of tablet 00:00: mouth in [place] 00 the Medical morning. Branch atorvastati 0 Yes [id number] 40mg Take 1 [facility] n 40 mg 7-25 tablet by ity of tablet 00:00: mouth in [place] 00 the Medical morning. Branch atorvastati 0 Yes [id number] 40mg Take 1 [facility] n 40 mg 7-25 tablet by ity of tablet 00:00: mouth in [place] 00 the Medical morning. Branch atorvastati 2021-0 Yes [id number] 40mg Take 1 [facility] n 40 mg 7-25 tablet by ity of tablet 00:00: mouth in [place] 00 the Medical morning. Branch atorvastati 2021-0 Yes [id number] 40mg Take 1 [facility] n 40 mg 7-25 tablet by ity of tablet 00:00: mouth in [place] 00 the Medical morning. Branch atorvastati 2021-0 Yes [id number] 40mg Take 1 [facility] n 40 mg 7-25 tablet by ity of tablet 00:00: mouth in [place] 00 the Medical morning. Branch atorvastati 2021-0 Yes [id number] 40mg Take 1 [facility] n 40 mg 7-25 tablet by ity of tablet 00:00: mouth in [place] 00 the Medical morning. Branch atorvastati 2021-0 Yes [id number] 40mg Take 1 [facility] n 40 mg 7-25 tablet by ity of tablet 00:00: mouth in [place] the Medical morning. Branch atorvastati 2021-0 Yes [id number] 40mg Take 1 [facility] n 40 mg 7-25 tablet by ity of tablet 00:00: mouth in [place] the Medical morning. Branch atorvastati 0 Yes [id number] 40mg Take 1 [facility] n 40 mg 7-25 tablet by ity of tablet 00:00: mouth in [place] the Medical morning. Branch atorvastati 2021-0 Yes [id number] 40mg Take 1 [facility] n 40 mg 7-25 tablet by ity of tablet 00:00: mouth in [place] 00 the Medical morning. Branch atorvastati 2021-0 Yes [id number] 40mg Take 1 [facility] n 40 mg 7-25 tablet by ity of tablet 00:00: mouth in [place] 00 the Medical morning. Branch atorvastati 2021-0 Yes [id number] 40mg Take 1 [facility] n 40 mg 7-25 tablet by ity of tablet 00:00: mouth in [place] 00 the Medical morning. Branch atorvastati 2021-0 Yes [id number] 40mg Take 1 [facility] n 40 mg 7-25 tablet by ity of tablet 00:00: mouth in [place] 00 the Medical morning. Branch atorvastati 2021-0 Yes [id number] 40mg Take 1 [facility] n 40 mg 7-25 tablet by ity of tablet 00:00: mouth in [place] 00 the Medical morning. Branch atorvastati 2021-0 Yes [id number] 40mg Take 1 [facility] n 40 mg 7-25 tablet by ity of tablet 00:00: mouth in [place] 00 the Medical morning. Branch atorvastati 2021-0 Yes [id number] 40mg Take 1 [facility] n 40 mg 7-25 tablet by ity of tablet 00:00: mouth in [place] 00 the Medical morning. Branch atorvastati 2021-0 Yes [id number] 40mg Take 1 [facility] n 40 mg 7-25 tablet by ity of tablet 00:00: mouth in [place] 00 the Medical morning. Branch atorvastati 2021-0 Yes [id number] 40mg Take 1 [facility] n 40 mg 7-25 tablet by ity of tablet 00:00: mouth in [place] 00 the Medical morning. Branch atorvastati 2021-0 Yes [id number] 40mg Take 1 [facility] n 40 mg 7-25 tablet by ity of tablet 00:00: mouth in [place] 00 the Medical morning. Branch atorvastati 0 2021- No [id number] 40mg Take 1 [facility] n 40 mg 7-25 11- tablet by ity of tablet 00:00: 00:00 mouth in [place] 00 :00 the Medical morning. Branch albuterol Yes 2.5mg Inhale 3 [facility] vers 2.5 mg /3 6-16 mL every 6 ity of mL (0.083 00:00: ([facility]) [place] %) 00 hours as Medical nebulizer needed for Bran ch solution Wheezing. albuterol Yes 2.5mg Inhale 3 [facility] vers 2.5 mg /3 6-16 mL every 6 ity of mL (0.083 00:00: ([facility]) [place] %) 00 hours as Medical nebulizer needed for Bran ch solution Wheezing. albuterol 0 Yes 2.5mg Inhale 3 [facility] vers 2.5 mg /3 6-16 mL every 6 ity of mL (0.083 00:00: (six) [place] %) 00 hours as Medical nebulizer needed for Bran ch solution Wheezing. albuterol 2022-0 Yes 2.5mg Inhale 3 [facility] vers 2.5 mg /3 6-16 mL every 6 ity of mL (0.083 00:00: (six) [place] %) 00 hours as Medical nebulizer needed for Bran ch solution Wheezing. albuterol 2-0 Yes 2.5mg Inhale 3 [facility] vers 2.5 mg /3 6-16 mL every 6 ity of mL (0.083 00:00: (six) [place] %) 00 hours as Medical nebulizer needed for Bran ch solution Wheezing. albuterol 2-0 Yes 2.5mg Inhale 3 [facility] vers 2.5 mg /3 6-16 mL every 6 ity of mL (0.083 00:00: (six) [place] %) 00 hours as Medical nebulizer needed for Bran ch solution Wheezing. albuterol 2-0 Yes 2.5mg Inhale 3 [facility] vers 2.5 mg /3 6-16 mL every 6 ity of mL (0.083 00:00: (six) [place] %) 00 hours as Medical nebulizer needed for Bran ch solution Wheezing. albuterol 2-0 Yes 2.5mg Inhale 3 [facility] vers 2.5 mg /3 6-16 mL every 6 ity of mL (0.083 00:00: (six) [place] %) 00 hours as Medical nebulizer needed for Bran ch solution Wheezing. albuterol 2-0 Yes 2.5mg Inhale 3 [facility] vers 2.5 mg /3 6-16 mL every 6 ity of mL (0.083 00:00: (six) [place] %) 00 hours as Medical nebulizer needed for Bran ch solution Wheezing. albuterol 2-0 Yes 2.5mg Inhale 3 [facility] vers 2.5 mg /3 6-16 mL every 6 ity of mL (0.083 00:00: (six) [place] %) 00 hours as Medical nebulizer needed for Bran ch solution Wheezing. albuterol 2022-0 Yes 2.5mg Inhale 3 [facility] vers 2.5 mg /3 6-16 mL every 6 ity of mL (0.083 00:00: (six) [place] %) 00 hours as Medical nebulizer needed for Bran ch solution Wheezing. albuterol 2-0 Yes 2.5mg Inhale 3 [facility] vers 2.5 mg /3 6-16 mL every 6 ity of mL (0.083 00:00: (six) [place] %) 00 hours as Medical nebulizer needed for Bran ch solution Wheezing. albuterol 2-0 Yes 2.5mg Inhale 3 [facility] vers 2.5 mg /3 6-16 mL every 6 ity of mL (0.083 00:00: (six) [place] %) 00 hours as Medical nebulizer needed for Bran ch solution Wheezing. albuterol 2021-0 Yes 2.5mg Inhale 3 [facility] vers 2.5 mg /3 6-16 mL every 6 ity of mL (0.083 00:00: (six) [place] %) 00 hours as Medical nebulizer needed for Bran ch solution Wheezing. albuterol 2021-0 Yes 2.5mg Inhale 3 [facility] vers 2.5 mg /3 6-16 mL every 6 ity of mL (0.083 00:00: (six) [place] %) 00 hours as Medical nebulizer needed for Bran ch solution Wheezing. albuterol 2021-0 Yes 2.5mg Inhale 3 [facility] vers 2.5 mg /3 6-16 mL every 6 ity of mL (0.083 00:00: (six) [place] %) 00 hours as Medical nebulizer needed for Bran ch solution Wheezing. albuterol 2021-0 Yes 2.5mg Inhale 3 [facility] vers 2.5 mg /3 6-16 mL every 6 ity of mL (0.083 00:00: (six) [place] %) 00 hours as Medical nebulizer needed for Bran ch solution Wheezing. albuterol 2021-0 Yes 2.5mg Inhale 3 [facility] vers 2.5 mg /3 6-16 mL every 6 ity of mL (0.083 00:00: (six) [place] %) 00 hours as Medical nebulizer needed for Bran ch solution Wheezing. albuterol 2-0 Yes 2.5mg Inhale 3 [facility] vers 2.5 mg /3 6-16 mL every 6 ity of mL (0.083 00:00: (six) [place] %) 00 hours as Medical nebulizer needed for Bran ch solution Wheezing. albuterol 2-0 Yes 2.5mg Inhale 3 [facility] vers 2.5 mg /3 6-16 mL every 6 ity of mL (0.083 00:00: ([facility]) [place] %) 00 hours as Medical nebulizer needed for Bran ch solution Wheezing. albuterol 2022-0 Yes 2.5mg Inhale 3 [facility] vers 2.5 mg /3 6-16 mL every 6 ity of mL (0.083 00:00: ([facility]) [place] %) 00 hours as Medical nebulizer needed for Bran ch solution Wheezing. albuterol 2-0 Yes 2.5mg Inhale 3 [facility] vers 2.5 mg /3 6-16 mL every 6 ity of mL (0.083 00:00: ([facility]) [place] %) 00 hours as Medical nebulizer needed for Bran ch solution Wheezing. albuterol 2-0 Yes 2.5mg Inhale 3 [facility] vers 2.5 mg /3 6-16 mL every 6 ity of mL (0.083 00:00: ([facility]) [place] %) 00 hours as Medical nebulizer needed for Bran ch solution Wheezing. albuterol 2021-0 Yes 2.5mg Inhale 3 [facility] vers 2.5 mg /3 6-16 mL every 6 ity of mL (0.083 00:00: ([facility]) [place] %) 00 hours as Medical nebulizer needed for Bran ch solution Wheezing. albuterol 2-0 Yes 2.5mg Inhale 3 [facility] vers 2.5 mg /3 6-16 mL every 6 ity of mL (0.083 00:00: ([facility]) [place] %) 00 hours as Medical nebulizer needed for Bran ch solution Wheezing. albuterol 2-0 Yes 2.5mg Inhale 3 [facility] vers 2.5 mg /3 6-16 mL every 6 ity of mL (0.083 00:00: ([facility]) [place] %) 00 hours as Medical nebulizer needed for Bran ch solution Wheezing. albuterol 2-0 Yes 2.5mg Inhale 3 [facility] vers 2.5 mg /3 6-16 mL every 6 ity of mL (0.083 00:00: ([facility]) [place] %) 00 hours as Medical nebulizer needed for Bran ch solution Wheezing. albuterol 2022-0 Yes 2.5mg Inhale 3 [facility] vers 2.5 mg /3 6-16 mL every 6 ity of mL (0.083 00:00: ([facility]) [place] %) 00 hours as Medical nebulizer needed for Bran ch solution Wheezing. albuterol 2022-0 Yes 2.5mg Inhale 3 [facility] vers 2.5 mg /3 6-16 mL every 6 ity of mL (0.083 00:00: ([facility]) [place] %) 00 hours as Medical nebulizer needed for Bran ch solution Wheezing. albuterol 2022-0 Yes 2.5mg Inhale 3 [facility] vers 2.5 mg /3 6-16 mL every 6 ity of mL (0.083 00:00: ([facility]) [place] %) 00 hours as Medical nebulizer needed for Bran ch solution Wheezing. albuterol 2022-0 Yes 2.5mg Inhale 3 [facility] vers 2.5 mg /3 6-16 mL every 6 ity of mL (0.083 00:00: ([facility]) [place] %) 00 hours as Medical nebulizer needed for Bran ch solution Wheezing. albuterol 2022-0 Yes 2.5mg Inhale 3 [facility] vers 2.5 mg /3 6-16 mL every 6 ity of mL (0.083 00:00: ([facility]) [place] %) 00 hours as Medical nebulizer needed for Bran ch solution Wheezing. albuterol 2022-0 Yes 2.5mg Inhale 3 Uni vers 2.5 mg /3 6-16 mL every 6 ity of mL (0.083 00:00: ([facility]) [place] %) 00 hours as Medical nebulizer needed for Bran ch solution Wheezing. albuterol 2022-0 Yes 2.5mg Inhale 3 Uni vers 2.5 mg /3 6-16 mL every 6 ity of mL (0.083 00:00: ([facility]) [place] %) 00 hours as Medical nebulizer needed for Bran ch solution Wheezing. albuterol 2022-0 Yes 2.5mg Inhale 3 Uni vers 2.5 mg /3 6-16 mL every 6 ity of mL (0.083 00:00: ([facility]) [place] %) 00 hours as Medical nebulizer needed for Bran ch solution Wheezing. albuterol 2022-0 Yes 2.5mg Inhale 3 Uni vers 2.5 mg /3 6-16 mL every 6 ity of mL (0.083 00:00: ([facility]) [place] %) 00 hours as Medical nebulizer needed for Bran ch solution Wheezing. albuterol 2022-0 Yes 2.5mg Inhale 3 Uni vers 2.5 mg /3 6-16 mL every 6 ity of mL (0.083 00:00: ([facility]) [place] %) 00 hours as Medical nebulizer needed for Bran ch solution Wheezing. albuterol 2-0 Yes 2.5mg Inhale 3 Uni vers 2.5 mg /3 6-16 mL every 6 ity of mL (0.083 00:00: ([facility]) [place] %) 00 hours as Medical nebulizer needed for Bran ch solution Wheezing. albuterol 2-0 Yes 2.5mg Inhale 3 Uni vers 2.5 mg /3 6-16 mL every 6 ity of mL (0.083 00:00: ([facility]) [place] %) 00 hours as Medical nebulizer needed for Bran ch solution Wheezing. albuterol 2-0 Yes 2.5mg Inhale 3 Uni vers 2.5 mg /3 6-16 mL every 6 ity of mL (0.083 00:00: ([facility]) [place] %) 00 hours as Medical nebulizer needed for Bran ch solution Wheezing. albuterol 2-0 Yes 2.5mg Inhale 3 Uni vers 2.5 mg /3 6-16 mL every 6 ity of mL (0.083 00:00: ([facility]) [place] %) 00 hours as Medical nebulizer needed for Bran ch solution Wheezing. albuterol 2-0 Yes 2.5mg Inhale 3 Uni vers 2.5 mg /3 6-16 mL every 6 ity of mL (0.083 00:00: ([facility]) [place] %) 00 hours as Medical nebulizer needed for Bran ch solution Wheezing. albuterol 2-0 Yes 2.5mg Inhale 3 Uni vers 2.5 mg /3 6-16 mL every 6 ity of mL (0.083 00:00: ([facility]) [place] %) 00 hours as Medical nebulizer needed for Bran ch solution Wheezing. albuterol 2022-0 Yes 2.5mg Inhale 3 Uni vers 2.5 mg /3 6-16 mL every 6 ity of mL (0.083 00:00: ([facility]) [place] %) 00 hours as Medical nebulizer needed for Bran ch solution Wheezing. albuterol 2-0 Yes 2.5mg Inhale 3 Uni vers 2.5 mg /3 6-16 mL every 6 ity of mL (0.083 00:00: (six) [place] %) 00 hours as Medical nebulizer needed for Bran ch solution Wheezing. albuterol 2-0 Yes 2.5mg Inhale 3 Uni vers 2.5 mg /3 6-16 mL every 6 ity of mL (0.083 00:00: (six) [place] %) 00 hours as Medical nebulizer needed for Bran ch solution Wheezing. albuterol 2-0 Yes 2.5mg Inhale 3 Uni vers 2.5 mg /3 6-16 mL every 6 ity of mL (0.083 00:00: (six) [place] %) 00 hours as Medical nebulizer needed for Bran ch solution Wheezing. albuterol 2-0 Yes 2.5mg Inhale 3 Uni vers 2.5 mg /3 6-16 mL every 6 ity of mL (0.083 00:00: (six) [place] %) 00 hours as Medical nebulizer needed for Bran ch solution Wheezing. albuterol 2-0 Yes 2.5mg Inhale 3 Uni vers 2.5 mg /3 6-16 mL every 6 ity of mL (0.083 00:00: (six) [place] %) 00 hours as Medical nebulizer needed for Bran ch solution Wheezing. albuterol 2-0 Yes 2.5mg Inhale 3 Uni vers 2.5 mg /3 6-16 mL every 6 ity of mL (0.083 00:00: (six) [place] %) 00 hours as Medical nebulizer needed for Bran ch solution Wheezing. albuterol 2-0 Yes 2.5mg Inhale 3 Uni vers 2.5 mg /3 6-16 mL every 6 ity of mL (0.083 00:00: (six) [place] %) 00 hours as Medical nebulizer needed for Bran ch solution Wheezing. albuterol 2-0 Yes 2.5mg Inhale 3 Uni vers 2.5 mg /3 6-16 mL every 6 ity of mL (0.083 00:00: (six) [place] %) 00 hours as Medical nebulizer needed for Bran ch solution Wheezing. albuterol 2-0 Yes 2.5mg Inhale 3 Uni vers 2.5 mg /3 6-16 mL every 6 ity of mL (0.083 00:00: (six) [place] %) 00 hours as Medical nebulizer needed for Bran ch solution Wheezing. albuterol 2021-0 Yes 2.5mg Inhale 3 Uni vers 2.5 mg /3 6-16 mL every 6 ity of mL (0.083 00:00: (six) [place] %) 00 hours as Medical nebulizer needed for Bran ch solution Wheezing. albuterol 2021-0 Yes 2.5mg Inhale 3 Uni vers 2.5 mg /3 6-16 mL every 6 ity of mL (0.083 00:00: (six) [place] %) 00 hours as Medical nebulizer needed for Bran ch solution Wheezing. albuterol 2021-0 Yes 2.5mg Inhale 3 Uni vers 2.5 mg /3 6-16 mL every 6 ity of mL (0.083 00:00: ([facility]) [place] %) 00 hours as Medical nebulizer needed for Bran ch solution Wheezing. albuterol 2021-0 Yes 2.5mg Inhale 3 Uni vers 2.5 mg /3 6-16 mL every 6 ity of mL (0.083 00:00: (six) [place] %) 00 hours as Medical nebulizer needed for Bran ch solution Wheezing. albuterol 2021-0 Yes 2.5mg Inhale 3 Uni vers 2.5 mg /3 6-16 mL every 6 ity of mL (0.083 00:00: (six) [place] %) 00 hours as Medical nebulizer needed for Bran ch solution Wheezing. albuterol 2021-0 Yes 2.5mg Inhale 3 Uni vers 2.5 mg /3 6-16 mL every 6 ity of mL (0.083 00:00: (six) [place] %) 00 hours as Medical nebulizer needed for Bran ch solution Wheezing. albuterol 2-0 Yes 2.5mg Inhale 3 Uni vers 2.5 mg /3 6-16 mL every 6 ity of mL (0.083 00:00: (six) [place] %) 00 hours as Medical nebulizer needed for Bran ch solution Wheezing. albuterol 2-0 Yes 2.5mg Inhale 3 Uni vers 2.5 mg /3 6-16 mL every 6 ity of mL (0.083 00:00: ([facility]) [place] %) 00 hours as Medical nebulizer needed for Bran ch solution Wheezing. albuterol 2022-0 Yes 2.5mg Inhale 3 Uni vers 2.5 mg /3 6-16 mL every 6 ity of mL (0.083 00:00: ([facility]) [place] %) 00 hours as Medical nebulizer needed for Bran ch solution Wheezing. albuterol 2-0 Yes 2.5mg Inhale 3 Uni vers 2.5 mg /3 6-16 mL every 6 ity of mL (0.083 00:00: ([facility]) [place] %) 00 hours as Medical nebulizer needed for Bran ch solution Wheezing. albuterol 2-0 Yes 2.5mg Inhale 3 Uni vers 2.5 mg /3 6-16 mL every 6 ity of mL (0.083 00:00: ([facility]) [place] %) 00 hours as Medical nebulizer needed for Bran ch solution Wheezing. albuterol 2021-0 Yes 2.5mg Inhale 3 Uni vers 2.5 mg /3 6-16 mL every 6 ity of mL (0.083 00:00: ([facility]) [place] %) 00 hours as Medical nebulizer needed for Bran ch solution Wheezing. albuterol 2-0 Yes 2.5mg Inhale 3 Uni vers 2.5 mg /3 6-16 mL every 6 ity of mL (0.083 00:00: ([facility]) [place] %) 00 hours as Medical nebulizer needed for Bran ch solution Wheezing. albuterol 2-0 Yes 2.5mg Inhale 3 Uni vers 2.5 mg /3 6-16 mL every 6 ity of mL (0.083 00:00: (six) [place] %) 00 hours as Medical nebulizer needed for Bran ch solution Wheezing. albuterol 2-0 Yes 2.5mg Inhale 3 Uni vers 2.5 mg /3 6-16 mL every 6 ity of mL (0.083 00:00: (six) [place] %) 00 hours as Medical nebulizer needed for Bran ch solution Wheezing. albuterol 2022-0 Yes 2.5mg Inhale 3 Uni vers 2.5 mg /3 6-16 mL every 6 ity of mL (0.083 00:00: ([facility]) [place] %) 00 hours as Medical nebulizer needed for Bran ch solution Wheezing. albuterol 2022-0 Yes 2.5mg Inhale 3 Uni vers 2.5 mg /3 6-16 mL every 6 ity of mL (0.083 00:00: ([facility]) [place] %) 00 hours as Medical nebulizer needed for Bran ch solution Wheezing. albuterol 2-0 Yes 2.5mg Inhale 3 Uni vers 2.5 mg /3 6-16 mL every 6 ity of mL (0.083 00:00: ([facility]) [place] %) 00 hours as Medical nebulizer needed for Bran ch solution Wheezing. albuterol 2021-0 Yes 2.5mg Inhale 3 Uni vers 2.5 mg /3 6-16 mL every 6 ity of mL (0.083 00:00: ([facility]) [place] %) 00 hours as Medical nebulizer needed for Bran ch solution Wheezing. albuterol 2021-0 Yes 2.5mg Inhale 3 Uni vers 2.5 mg /3 6-16 mL every 6 ity of mL (0.083 00:00: ([facility]) [place] %) 00 hours as Medical nebulizer needed for Bran ch solution Wheezing. albuterol 2021-0 Yes 2.5mg Inhale 3 Uni vers 2.5 mg /3 6-16 mL every 6 ity of mL (0.083 00:00: ([facility]) [place] %) 00 hours as Medical nebulizer needed for Bran ch solution Wheezing. albuterol 2021-0 2023- No 2.5mg Inhale 3 Un miracle 2.5 mg /3 6-16 03-21 mL every 6 ity of mL (0.083 00:00: 00:00 ([facility]) [place] %) 00 :00 hours as Medical nebulizer needed for Bran ch solution Wheezing. albuterol 2022-0 2023- No 2.5mg Inhale 3 Un miracle 2.5 mg /3 6-16 03-21 mL every 6 ity of mL (0.083 00:00: 00:00 ([facility]) [place] %) 00 :00 hours as Medical nebulizer needed for Bran ch solution Wheezing. aspirin 81 2-0 Yes [id number] 81mg Take 1 [facility] mg EC 6-14 tablet by ity of tablet 00:00: [facility] 00 daily. Medical Branch aspirin 81 2021-0 Yes [id number] 81mg Take 1 [facility] mg EC 6-14 tablet by ity of tablet 00:00: mouth [place] 00 daily. Medical Branch aspirin 81 2021-0 Yes [id number] 81mg Take 1 [facility] mg EC 6-14 tablet by ity of tablet 00:00: mouth [place] 00 daily. Medical Branch aspirin 81 2021-0 Yes [id number] 81mg Take 1 [facility] mg EC 6-14 tablet by ity of tablet 00:00: mouth [place] 00 daily. Medical Branch aspirin 81 2021-0 Yes [id number] 81mg Take 1 [facility] mg EC 6-14 tablet by ity of tablet 00:00: mouth [place] 00 daily. Medical Branch aspirin 81 2021-0 Yes [id number] 81mg Take 1 [facility] mg EC 6-14 tablet by ity of tablet 00:00: mouth [place] 00 daily. Medical Branch aspirin 81 2021-0 Yes [id number] 81mg Take 1 [facility] mg EC 6-14 tablet by ity of tablet 00:00: mouth [place] 00 daily. Medical Branch aspirin 81 2021-0 Yes [id number] 81mg Take 1 [facility] mg EC 6-14 tablet by ity of tablet 00:00: mouth [place] 00 daily. Medical Branch aspirin 81 2021-0 Yes [id number] 81mg Take 1 [facility] mg EC 6-14 tablet by ity of tablet 00:00: mouth [place] 00 daily. Medical Branch aspirin 81 2021-0 Yes [id number] 81mg Take 1 [facility] mg EC 6-14 tablet by ity of tablet 00:00: mouth [place] 00 daily. Medical Branch aspirin 81 2021-0 Yes [id number] 81mg Take 1 [facility] mg EC 6-14 tablet by ity of tablet 00:00: mouth [place] 00 daily. Medical Branch aspirin 81 2021-0 Yes [id number] 81mg Take 1 [facility] mg EC 6-14 tablet by ity of tablet 00:00: mouth [place] 00 daily. Medical Branch aspirin 81 2021-0 Yes [id number] 81mg Take 1 [facility] mg EC 6-14 tablet by ity of tablet 00:00: mouth [place] 00 daily. Medical Branch aspirin 81 2021-0 Yes [id number] 81mg Take 1 [facility] mg EC 6-14 tablet by ity of tablet 00:00: mouth [place] 00 daily. Medical Branch aspirin 81 2021-0 Yes [id number] 81mg Take 1 [facility] mg EC 6-14 tablet by ity of tablet 00:00: mouth [place] 00 daily. Medical Branch aspirin 81 2021-0 Yes [id number] 81mg Take 1 [facility] mg EC 6-14 tablet by ity of tablet 00:00: mouth [place] 00 daily. Medical Branch aspirin 81 2021-0 Yes [id number] 81mg Take 1 [facility] mg EC 6-14 tablet by ity of tablet 00:00: mouth [place] 00 daily. Medical Branch aspirin 81 2021-0 Yes [id number] 81mg Take 1 [facility] mg EC 6-14 tablet by ity of tablet 00:00: mouth [place] 00 daily. Medical Branch aspirin 81 2021-0 Yes [id number] 81mg Take 1 [facility] mg EC 6-14 tablet by ity of tablet 00:00: mouth [place] 00 daily. Medical Branch aspirin 81 2021-0 Yes [id number] 81mg Take 1 [facility] mg EC 6-14 tablet by ity of tablet 00:00: mouth [place] 00 daily. Medical Branch aspirin 81 2021-0 Yes [id number] 81mg Take 1 [facility] mg EC 6-14 tablet by ity of tablet 00:00: mouth [place] 00 daily. Medical Branch aspirin 81 2021-0 Yes [id number] 81mg Take 1 [facility] mg EC 6-14 tablet by ity of tablet 00:00: mouth [place] 00 daily. Medical Branch aspirin 81 2021-0 Yes [id number] 81mg Take 1 [facility] mg EC 6-14 tablet by ity of tablet 00:00: mouth [place] 00 daily. Medical Branch aspirin 81 2021-0 Yes [id number] 81mg Take 1 [facility] mg EC 6-14 tablet by ity of tablet 00:00: mouth [place] 00 daily. Medical Branch aspirin 81 2021-0 Yes [id number] 81mg Take 1 [facility] mg EC 6-14 tablet by ity of tablet 00:00: mouth [place] 00 daily. Medical Branch aspirin 81 2021-0 Yes [id number] 81mg Take 1 [facility] mg EC 6-14 tablet by ity of tablet 00:00: mouth [place] 00 daily. Medical Branch aspirin 81 2021-0 Yes [id number] 81mg Take 1 [facility] mg EC 6-14 tablet by ity of tablet 00:00: mouth [place] 00 daily. Medical Branch aspirin 81 2021-0 Yes [id number] 81mg Take 1 [facility] mg EC 6-14 tablet by ity of tablet 00:00: mouth [place] 00 daily. Medical Branch aspirin 81 2021-0 Yes [id number] 81mg Take 1 [facility] mg EC 6-14 tablet by ity of tablet 00:00: mouth [place] 00 daily. Medical Branch aspirin 81 2021-0 Yes [id number] 81mg Take 1 [facility] mg EC 6-14 tablet by ity of tablet 00:00: mouth [place] 00 daily. Medical Branch aspirin 81 2021-0 Yes [id number] 81mg Take 1 [facility] mg EC 6-14 tablet by ity of tablet 00:00: mouth [place] 00 daily. Medical Branch aspirin 81 2021-0 Yes [id number] 81mg Take 1 [facility] mg EC 6-14 tablet by ity of tablet 00:00: mouth [place] 00 daily. Medical Branch aspirin 81 2021-0 Yes [id number] 81mg Take 1 [facility] mg EC 6-14 tablet by ity of tablet 00:00: mouth [place] 00 daily. Medical Branch aspirin 81 2021-0 Yes [id number] 81mg Take 1 [facility] mg EC 6-14 tablet by ity of tablet 00:00: mouth [place] 00 daily. Medical Branch aspirin 81 2021-0 Yes [id number] 81mg Take 1 [facility] mg EC 6-14 tablet by ity of tablet 00:00: mouth [place] 00 daily. Medical Branch aspirin 81 2021-0 Yes [id number] 81mg Take 1 [facility] mg EC 6-14 tablet by ity of tablet 00:00: mouth [place] 00 daily. Medical Branch aspirin 81 2021-0 Yes [id number] 81mg Take 1 [facility] mg EC 6-14 tablet by ity of tablet 00:00: mouth [place] 00 daily. Medical Branch aspirin 81 2021-0 Yes [id number] 81mg Take 1 [facility] mg EC 6-14 tablet by ity of tablet 00:00: mouth [place] 00 daily. Medical Branch aspirin 81 2021-0 Yes [id number] 81mg Take 1 [facility] mg EC 6-14 tablet by ity of tablet 00:00: mouth [place] 00 daily. Medical Branch aspirin 81 2021-0 2021- No [id number] 81mg Take 1 [facility] mg EC 6-14 12-06 tablet by ity of tablet 00:00: 00:00 mouth [place] 00 :00 daily. Medical Branch aspirin 81 0 2021- No [id number] 81mg Take 1 [facility] mg EC 6-14 12-06 tablet by ity of tablet 00:00: 00:00 mouth [place] 00 :00 daily. Medical Branch apixaban Yes 1358 2.5mg Take 1 Univer s 2.5 mg 6-13 tablet by ity of tablet 00:00: mouth (two) Medical times Branch daily. Indication s: atrial fibrillati on apixaban 2021-0 Yes 1358 2.5mg Take 1 Univer s 2.5 mg 6-13 tablet by ity of tablet 00:00: mouth (two) Medical times Branch daily. Indication s: atrial fibrillati on apixaban 2021-0 Yes 1358 2.5mg Take 1 Univer s 2.5 mg 6-13 tablet by ity of tablet 00:00: mouth (two) Medical times Branch daily. Indication s: atrial fibrillati on apixaban Yes 1358 2.5mg Take 1 Univer s 2.5 mg 6-13 tablet by ity of tablet 00:00: mouth (two) Medical times Branch daily. Indication s: atrial fibrillati on apixaban 2021- Yes 1358 2.5mg Take 1 Univer s 2.5 mg 6-13 tablet by ity of tablet 00:00: mouth (two) Medical times Branch daily. Indication s: atrial fibrillati on apixaban 2021- Yes 1358 2.5mg Take 1 Univer s 2.5 mg 6-13 tablet by ity of tablet 00:00: mouth (two) Medical times Branch daily. Indication s: atrial fibrillati on apixaban 2021-0 Yes 1358 2.5mg Take 1 Univer s 2.5 mg 6-13 tablet by ity of tablet 00:00: mouth (two) Medical times Branch daily. Indication s: atrial fibrillati on apixaban 2021-0 Yes 1358 2.5mg Take 1 Univer s 2.5 mg 6-13 tablet by ity of tablet 00:00: mouth (two) Medical times Branch daily. Indication s: atrial fibrillati on apixaban 2021-0 Yes 1358 2.5mg Take 1 [facility] s 2.5 mg 6-13 tablet by ity of tablet 00:00: mouth 2 (two) Medical times Branch daily. Indication s: atrial fibrillati on apixaban 2-0 Yes 1358 2.5mg Take 1 [facility]iver s 2.5 mg 6-13 tablet by ity of tablet 00:00: mouth 2 (two) Medical times Branch daily. Indication s: atrial fibrillati on apixaban 2021-0 Yes 1358 2.5mg Take 1 Univer s 2.5 mg 6-13 tablet by ity of tablet 00:00: mouth (two) Medical times Branch daily. Indication s: atrial fibrillati on apixaban 2021-0 Yes 1358 2.5mg Take 1 Univer s 2.5 mg 6-13 tablet by ity of tablet 00:00: mouth (two) Medical times Branch daily. Indication s: atrial fibrillati on apixaban 2021-0 Yes 1358 2.5mg Take 1 Univer s 2.5 mg 6-13 tablet by ity of tablet 00:00: mouth (two) Medical times Branch daily. Indication s: atrial fibrillati on apixaban 2021-0 Yes 1358 2.5mg Take 1 Univer s 2.5 mg 6-13 tablet by ity of tablet 00:00: mouth (two) Medical times Branch daily. Indication s: atrial fibrillati on apixaban 2-0 Yes 1358 2.5mg Take 1 [facility] s 2.5 mg 6-13 tablet by ity of tablet 00:00: mouth (two) Medical times Branch daily. Indication s: atrial fibrillati on apixaban 2-0 Yes 1358 2.5mg Take 1 [facility] s 2.5 mg 6-13 tablet by ity of tablet 00:00: mouth (two) Medical times Branch daily. Indication s: atrial fibrillati on apixaban 2-0 Yes 1358 2.5mg Take 1 [facility] s 2.5 mg 6-13 tablet by ity of tablet 00:00: mouth 2 (two) Medical times Branch daily. Indication s: atrial fibrillati on apixaban 2-0 Yes 1358 2.5mg Take 1 [facility] s 2.5 mg 6-13 tablet by ity of tablet 00:00: mouth (two) Medical times Branch daily. Indication s: atrial fibrillati on apixaban 2-0 Yes 1358 2.5mg Take 1 [facility] s 2.5 mg 6-13 tablet by ity of tablet 00:00: mouth 2 (two) Medical times Branch daily. Indication s: atrial fibrillati on apixaban 2-0 Yes 1358 2.5mg Take 1 [facility] s 2.5 mg 6-13 tablet by ity of tablet 00:00: mouth (two) Medical times Branch daily. Indication s: atrial fibrillati on apixaban 2-0 Yes 1358 2.5mg Take 1 [facility] s 2.5 mg 6-13 tablet by ity of tablet 00:00: mouth (two) Medical times Branch daily. Indication s: atrial fibrillati on apixaban 2021-0 Yes 1358 2.5mg Take 1 [facility] s 2.5 mg 6-13 tablet by ity of tablet 00:00: mouth (two) Medical times Branch daily. Indication s: atrial fibrillati on apixaban 2021-0 Yes 1358 2.5mg Take 1 [facility] s 2.5 mg 6-13 tablet by ity of tablet 00:00: mouth (two) Medical times Branch daily. Indication s: atrial fibrillati on apixaban 2-0 Yes 1358 2.5mg Take 1 [facility] s 2.5 mg 6-13 tablet by ity of tablet 00:00: mouth (two) Medical times Branch daily. Indication s: atrial fibrillati on apixaban 2-0 Yes 1358 2.5mg Take 1 [facility] s 2.5 mg 6-13 tablet by ity of tablet 00:00: mouth (two) Medical times Branch daily. Indication s: atrial fibrillati on apixaban 2-0 Yes 1358 2.5mg Take 1 [facility] s 2.5 mg 6-13 tablet by ity of tablet 00:00: mouth 2 (two) Medical times Branch daily. Indication s: atrial fibrillati on apixaban 2-0 Yes 1358 2.5mg Take 1 [facility]iver s 2.5 mg 6-13 tablet by ity of tablet 00:00: mouth 2 (two) Medical times Branch daily. Indication s: atrial fibrillati on apixaban 2-0 Yes 1358 2.5mg Take 1 [facility] s 2.5 mg 6-13 tablet by ity of tablet 00:00: mouth 2 (two) Medical times Branch daily. Indication s: atrial fibrillati on apixaban 2-0 Yes 1358 2.5mg Take 1 [facility] s 2.5 mg 6-13 tablet by ity of tablet 00:00: mouth (two) Medical times Branch daily. Indication s: atrial fibrillati on apixaban 2-0 Yes 1358 2.5mg Take 1 [facility] s 2.5 mg 6-13 tablet by ity of tablet 00:00: mouth (two) Medical times Branch daily. Indication s: atrial fibrillati on apixaban 2-0 Yes 1358 2.5mg Take 1 [facility] s 2.5 mg 6-13 tablet by ity of tablet 00:00: mouth (two) Medical times Branch daily. Indication s: atrial fibrillati on apixaban 2-0 Yes 1358 2.5mg Take 1 [facility] s 2.5 mg 6-13 tablet by ity of tablet 00:00: mouth (two) Medical times Branch daily. Indication s: atrial fibrillati on apixaban 2-0 Yes 1358 2.5mg Take 1 [facility] s 2.5 mg 6-13 tablet by ity of tablet 00:00: mouth (two) Medical times Branch daily. Indication s: atrial fibrillati on apixaban 2-0 Yes 1358 2.5mg Take 1 [facility] s 2.5 mg 6-13 tablet by ity of tablet 00:00: mouth (two) Medical times Branch daily. Indication s: atrial fibrillati on apixaban 2-0 Yes 1358 2.5mg Take 1 [facility] s 2.5 mg 6-13 tablet by ity of tablet 00:00: mouth 2 (two) Medical times Branch daily. Indication s: atrial fibrillati on apixaban 2-0 Yes 1358 2.5mg Take 1 [facility]iver s 2.5 mg 6-13 tablet by ity of tablet 00:00: mouth 2 [place] 00 (two) Medical times Branch daily. Indication s: atrial fibrillati on apixaban 2021-0 Yes 1358 2.5mg Take 1 Univer s 2.5 mg 6-13 tablet by ity of tablet 00:00: mouth 2 [place] 00 (two) Medical times Branch daily. Indication s: atrial fibrillati on apixaban 2-0 Yes 1358 2.5mg Take 1 [facility]iver s 2.5 mg 6-13 tablet by ity of tablet 00:00: mouth 2 [place] 00 (two) Medical times Branch daily. Indication s: atrial fibrillati on apixaban 2021-0 Yes 1358 2.5mg Take 1 [facility] s 2.5 mg 6-13 tablet by ity of tablet 00:00: mouth 2 [place] 00 (two) Medical times Branch daily. Indication s: atrial fibrillati on apixaban 2021-0 2022- No 1358 2.5mg Take 1 [facility] rs 2.5 mg 6-13 12-06 tablet by ity of tablet 00:00: 00:00 mouth 2 [place] 00 :00 (two) Medical times Branch daily. Indication s: atrial fibrillati on apixaban 2021-0 2022- No 1358 2.5mg Take 1 Unive rs 2.5 mg 6-13 12-06 tablet by ity of tablet 00:00: 00:00 mouth 2 [place] 00 :00 (two) Medical times Branch daily. Indication s: atrial fibrillati on tiotropium 2021-0 Yes [id number] INHALE THE [facility] (SPIRIVA 2-15 CONTENTS ity of WITH 00:00: OF 1 [place] [facility]) 00 CAPSULE Medic al 18 mcg VIA Branch inhalation INHALATION DEVICE DAILY DIRECTED tiotropium 2021-0 Yes [id number] INHALE THE [facility] (SPIRIVA 2-15 CONTENTS ity of WITH 00:00: OF 1 [place] HANDIH[facility]) 00 CAPSULE Medic al 18 mcg VIA Branch inhalation INHALATION DEVICE DAILY DIRECTED tiotropium 2021-0 Yes [id number] INHALE THE [facility] (SPIRIVA 2-15 CONTENTS ity of WITH 00:00: OF 1 [place] HAND[facility]) 00 CAPSULE Medic al 18 mcg VIA Branch inhalation INHALATION DEVICE DAILY DIRECTED tiotropium 2021-0 Yes [id number] INHALE THE [facility] (SPIRIVA 2-15 CONTENTS ity of WITH 00:00: OF 1 [place] HAND[facility]) 00 CAPSULE Medic al 18 mcg VIA Branch inhalation INHALATION DEVICE DAILY DIRECTED tiotropium 2-0 Yes INHALE THE [facility] (SPIRIVA 2-15 CONTENTS ity of WITH 00:00: OF 1 [place] HAND[facility]) 00 CAPSULE Medic al 18 mcg VIA Branch inhalation INHALATION DEVICE DAILY DIRECTED tiotropium 2021-0 Yes INHALE THE [facility] (SPIRIVA 2-15 CONTENTS ity of WITH 00:00: OF 1 [place] HAND[facility]) 00 CAPSULE Medic al 18 mcg VIA Branch inhalation INHALATION DEVICE DAILY DIRECTED tiotropium 2021-0 Yes INHALE THE [facility] (SPIRIVA 2-15 CONTENTS ity of WITH 00:00: OF 1 [place] HAND[facility]) 00 CAPSULE Medic al 18 mcg VIA Branch inhalation INHALATION DEVICE DAILY DIRECTED tiotropium 2021-0 Yes INHALE THE [facility] (SPIRIVA 2-15 CONTENTS ity of WITH 00:00: OF 1 [place] HAND[facility]) 00 CAPSULE Medic al 18 mcg VIA Branch inhalation INHALATION DEVICE DAILY DIRECTED tiotropium 2021-0 Yes INHALE THE [facility] (SPIRIVA 2-15 CONTENTS ity of WITH 00:00: OF 1 [place] HAND[facility]) 00 CAPSULE Medic al 18 mcg VIA Branch inhalation INHALATION DEVICE DAILY DIRECTED tiotropium 2021-0 Yes INHALE THE [facility] (SPIRIVA 2-15 CONTENTS ity of WITH 00:00: OF 1 [place] HAND[facility]) 00 CAPSULE Medic al 18 mcg VIA Branch inhalation INHALATION DEVICE DAILY DIRECTED tiotropium 2-0 Yes INHALE THE [facility] (SPIRIVA 2-15 CONTENTS ity of WITH 00:00: OF 1 [place] HANDIHAL[facility]) 00 CAPSULE Medic al 18 mcg VIA Branch inhalation INHALATION DEVICE DAILY DIRECTED tiotropium 2-0 Yes INHALE THE [facility] (SPIRIVA 2-15 CONTENTS ity of WITH 00:00: OF 1 [place] HANDIHAL[facility]) 00 CAPSULE Medic al 18 mcg VIA Branch inhalation INHALATION DEVICE DAILY DIRECTED tiotropium 2022-0 Yes INHALE THE [facility] (SPIRIVA 2-15 CONTENTS ity of WITH 00:00: OF 1 [place] HANDIHAL[facility]) 00 CAPSULE Medic al 18 mcg VIA Branch inhalation INHALATION DEVICE DAILY DIRECTED tiotropium 2022-0 Yes INHALE THE [facility] (SPIRIVA 2-15 CONTENTS ity of WITH 00:00: OF 1 [place] HANDIHAL[facility]) 00 CAPSULE Medic al 18 mcg VIA Branch inhalation INHALATION DEVICE DAILY DIRECTED tiotropium 2022-0 Yes INHALE THE [facility] (SPIRIVA 2-15 CONTENTS ity of WITH 00:00: OF 1 [place] HANDIHAL[facility]) 00 CAPSULE Medic al 18 mcg VIA Branch inhalation INHALATION DEVICE DAILY DIRECTED tiotropium 2022-0 Yes [facility] CONTENTS [facility] of WITH 00:00: OF 1 [place] [facility]) 00 CAPSULE Medic al 18 mcg [facility] inhalation INHALATION DEVICE DAILY DIRECTED tiotropium 2-0 Yes [facility] ([facility] 2-15 CONTENTS ity of WITH 00:00: OF 1 [place] [facility]) 00 CAPSULE Medic al 18 mcg [facility] inhalation INHALATION DEVICE DAILY DIRECTED tiotropium 2-0 Yes [facility] ([facility]IR[facility]A 2-15 CONTENTS ity of WITH 00:00: OF 1 [place] [facility]) 00 CAPSULE Medic al 18 mcg [facility] inhalation INHALATION DEVICE DAILY DIRECTED tiotropium 2-0 Yes [facility] ([facility]IR[facility]A 2-15 CONTENTS ity of WITH 00:00: OF 1 [place] [facility]) 00 CAPSULE Medic al 18 mcg [facility] inhalation INHALATION DEVICE DAILY DIRECTED tiotropium 2022-0 Yes [facility] ([facility]IR[facility]A 2-15 CONTENTS ity of WITH 00:00: OF 1 [place] [facility]) 00 CAPSULE Medic al 18 mcg [facility] inhalation INHALATION DEVICE DAILY DIRECTED tiotropium 2022-0 Yes [facility] ([facility]IR[facility]A 2-15 CONTENTS ity of WITH 00:00: OF 1 [place] [facility]) 00 CAPSULE Medic al 18 mcg [facility] inhalation INHALATION DEVICE DAILY DIRECTED tiotropium 2022-0 Yes [facility] ([facility]IR[facility]A 2-15 CONTENTS ity of WITH 00:00: OF 1 [place] [facility]) 00 CAPSULE Medic al 18 mcg [facility] inhalation INHALATION DEVICE DAILY DIRECTED tiotropium 2022-0 Yes [facility] ([facility]IRIVA 2-15 CONTENTS ity of WITH 00:00: OF 1 [place] [facility]) 00 CAPSULE Medic al 18 mcg [facility] inhalation INHALATION DEVICE DAILY DIRECTED tiotropium 2-0 Yes [facility] ([facility]IRIVA 2-15 CONTENTS ity of WITH 00:00: OF 1 [place] [facility]) 00 CAPSULE Medic al 18 mcg [facility] inhalation INHALATION DEVICE DAILY DIRECTED tiotropium 2-0 Yes [facility] (SPIRIVA 2-15 CONTENTS ity of WITH 00:00: OF 1 [place] [facility]) 00 CAPSULE Medic al 18 mcg [facility] inhalation INHALATION DEVICE DAILY DIRECTED tiotropium 2-0 Yes [facility] (SPIRIVA 2-15 CONTENTS ity of WITH 00:00: OF 1 [place] [facility]) 00 CAPSULE Medic al 18 mcg [facility] inhalation INHALATION DEVICE DAILY DIRECTED tiotropium 2021-0 Yes [facility] (SPIRIVA 2-15 CONTENTS ity of WITH 00:00: OF 1 [place] [facility]) 00 CAPSULE Medic al 18 mcg [facility] inhalation INHALATION DEVICE DAILY DIRECTED tiotropium 2-0 Yes [facility] (SPIRIVA 2-15 CONTENTS ity of WITH 00:00: OF 1 [place] [facility]) 00 CAPSULE Medic al 18 mcg [facility] inhalation INHALATION DEVICE DAILY DIRECTED tiotropium 2-0 Yes [facility] (SPIRIVA 2-15 CONTENTS ity of WITH 00:00: OF 1 [place] [facility]) 00 CAPSULE Medic al 18 mcg [facility] inhalation INHALATION DEVICE DAILY DIRECTED tiotropium 2-0 Yes [facility] (SPIRIVA 2-15 CONTENTS ity of WITH 00:00: OF 1 [place] [facility]) 00 CAPSULE Medic al 18 mcg [facility] inhalation INHALATION DEVICE DAILY DIRECTED tiotropium 2022-0 Yes [facility] (SPIRIVA 2-15 CONTENTS ity of WITH 00:00: OF 1 [place] [facility]) 00 CAPSULE Medic al 18 mcg [facility] inhalation INHALATION DEVICE DAILY DIRECTED tiotropium 2022-0 Yes [facility] (SPIRIVA 2-15 CONTENTS ity of WITH 00:00: OF 1 [place] [facility]) 00 CAPSULE Medic al 18 mcg [facility] inhalation INHALATION DEVICE DAILY DIRECTED tiotropium 2022-0 Yes [facility] (SPIRIVA 2-15 CONTENTS ity of WITH 00:00: OF 1 [place] [facility]) 00 CAPSULE Medic al 18 mcg [facility] inhalation INHALATION DEVICE DAILY DIRECTED tiotropium 2022-0 Yes [facility] (SPIRIVA 2-15 CONTENTS ity of WITH 00:00: OF 1 [place] [facility]) 00 CAPSULE Medic al 18 mcg [facility] inhalation INHALATION DEVICE DAILY DIRECTED tiotropium 2022-0 Yes [facility] (SPIRIVA 2-15 CONTENTS ity of WITH 00:00: OF 1 [place] [facility]) 00 CAPSULE Medic al 18 mcg [facility] inhalation INHALATION DEVICE DAILY DIRECTED tiotropium 2022-0 Yes [facility] (SPIRIVA 2-15 CONTENTS ity of WITH 00:00: OF 1 [place] [facility]) 00 CAPSULE Medic al 18 mcg [facility] inhalation INHALATION DEVICE DAILY DIRECTED tiotropium 2022-0 Yes [facility] (SPIRIVA 2-15 CONTENTS ity of WITH 00:00: OF 1 [place] [facility]) 00 CAPSULE Medic al 18 mcg [facility] inhalation INHALATION DEVICE DAILY DIRECTED tiotropium 2-0 Yes [facility] (SPIRIVA 2-15 CONTENTS ity of WITH 00:00: OF 1 [place] [facility]) 00 CAPSULE Medic al 18 mcg [facility] inhalation INHALATION DEVICE DAILY DIRECTED tiotropium 2022-0 Yes [facility] (SPIRIVA 2-15 CONTENTS ity of WITH 00:00: OF 1 [place] [facility]) 00 CAPSULE Medic al 18 mcg [facility] inhalation INHALATION DEVICE DAILY DIRECTED tiotropium 2022-0 Yes [facility] (SPIRIVA 2-15 CONTENTS ity of WITH 00:00: OF 1 [place] [facility]) 00 CAPSULE Medic al 18 mcg [facility] inhalation INHALATION DEVICE DAILY DIRECTED tiotropium 2022-0 Yes [facility] (SPIRIVA 2-15 CONTENTS ity of WITH 00:00: OF 1 [place] [facility]) 00 CAPSULE Medic al 18 mcg [facility] inhalation INHALATION DEVICE DAILY DIRECTED tiotropium 2022-0 Yes [facility] (SPIRIVA 2-15 CONTENTS ity of WITH 00:00: OF 1 [place] [facility]) 00 CAPSULE Medic al 18 mcg V[facility] inhalation INHALATION DEVICE DAILY DIRECTED tiotropium 2021-0 Yes [facility] (SPIRIVA 2-15 CONTENTS ity of WITH 00:00: OF 1 [place] [facility]) 00 CAPSULE Medic al 18 mcg [facility] inhalation INHALATION DEVICE DAILY DIRECTED tiotropium 2-0 Yes [facility] (SPIRIVA 2-15 CONTENTS ity of WITH 00:00: OF 1 [place] [facility]) 00 CAPSULE Medic al 18 mcg [facility] inhalation INHALATION DEVICE DAILY DIRECTED tiotropium 2021-0 Yes [facility] (SPIRIVA 2-15 CONTENTS ity of WITH 00:00: OF 1 [place] [facility]) 00 CAPSULE Medic al 18 mcg V[facility] inhalation INHALATION DEVICE DAILY DIRECTED tiotropium 2021-0 Yes [facility] (SPIRIVA 2-15 CONTENTS ity of WITH 00:00: OF 1 [place] [facility]) 00 CAPSULE Medic al 18 mcg [facility] inhalation INHALATION DEVICE DAILY DIRECTED tiotropium 2021-0 Yes [facility] (SPIRIVA 2-15 CONTENTS ity of WITH 00:00: OF 1 [place] [facility]) 00 CAPSULE Medic al 18 mcg [facility] inhalation INHALATION DEVICE DAILY DIRECTED tiotropium 2021-0 Yes [facility] (SPIRIVA 2-15 CONTENTS ity of WITH 00:00: OF 1 [place] [facility]) 00 CAPSULE Medic al 18 mcg V[facility] inhalation INHALATION DEVICE DAILY DIRECTED tiotropium 2-0 Yes [facility] (SPIRIVA 2-15 CONTENTS ity of WITH 00:00: OF 1 [place] [facility]) 00 CAPSULE Medic al 18 mcg [facility] inhalation INHALATION DEVICE DAILY DIRECTED tiotropium 2-0 Yes [facility] (SPIRIVA 2-15 CONTENTS ity of WITH 00:00: OF 1 [place] [facility]) 00 CAPSULE Medic al 18 mcg [facility] inhalation INHALATION DEVICE DAILY DIRECTED tiotropium 2022-0 Yes [facility] (SPIRIVA 2-15 CONTENTS ity of WITH 00:00: OF 1 [place] [facility]) 00 CAPSULE Medic al 18 mcg [facility] inhalation INHALATION DEVICE DAILY DIRECTED tiotropium 2-0 Yes [facility] (SPIRIVA 2-15 CONTENTS ity of WITH 00:00: OF 1 [place] [facility]) 00 CAPSULE Medic al 18 mcg V[facility] inhalation INHALATION DEVICE DAILY DIRECTED tiotropium 2-0 Yes [facility] (SPIRIVA 2-15 CONTENTS ity of WITH 00:00: OF 1 [place] [facility]) 00 CAPSULE Medic al 18 mcg [facility] inhalation INHALATION DEVICE DAILY DIRECTED tiotropium 2021-0 Yes [facility] (SPIRIVA 2-15 CONTENTS ity of WITH 00:00: OF 1 [place] [facility]) 00 CAPSULE Medic al 18 mcg [facility] inhalation INHALATION DEVICE DAILY DIRECTED tiotropium 2021-0 Yes [facility] (SPIRIVA 2-15 CONTENTS ity of WITH 00:00: OF 1 [place] [facility]) 00 CAPSULE Medic al 18 mcg [facility] inhalation INHALATION DEVICE DAILY DIRECTED tiotropium 2021-0 Yes [facility] (SPIRIVA 2-15 CONTENTS ity of WITH 00:00: OF 1 [place] [facility]) 00 CAPSULE Medic al 18 mcg [facility] inhalation INHALATION DEVICE DAILY DIRECTED tiotropium 2-0 Yes [facility] (SPIRIVA 2-15 CONTENTS ity of WITH 00:00: OF 1 [place] [facility]) 00 CAPSULE Medic al 18 mcg [facility] inhalation INHALATION DEVICE DAILY DIRECTED tiotropium 2-0 Yes [facility] (SPIRIVA 2-15 CONTENTS ity of WITH 00:00: OF 1 [place] [facility]) 00 CAPSULE Medic al 18 mcg V[facility] inhalation INHALATION DEVICE DAILY DIRECTED tiotropium 2-0 Yes [facility] (SPIRIVA 2-15 CONTENTS ity of WITH 00:00: OF 1 [place] [facility]) 00 CAPSULE Medic al 18 mcg [facility] inhalation INHALATION DEVICE DAILY DIRECTED tiotropium 2022-0 Yes [facility] (SPIRIVA 2-15 CONTENTS ity of WITH 00:00: OF 1 [place] [facility]) 00 CAPSULE Medic al 18 mcg V[facility] inhalation INHALATION DEVICE DAILY DIRECTED tiotropium 2-0 Yes [facility] (SPIRIVA 2-15 CONTENTS ity of WITH 00:00: OF 1 [place] [facility]) 00 CAPSULE Medic al 18 mcg [facility] inhalation INHALATION DEVICE DAILY DIRECTED tiotropium 2021-0 Yes [facility] (SPIRIVA 2-15 CONTENTS ity of WITH 00:00: OF 1 [place] [facility]) 00 CAPSULE Medic al 18 mcg V[facility] inhalation INHALATION DEVICE DAILY DIRECTED tiotropium 2021-0 Yes [facility] (SPIRIVA 2-15 CONTENTS ity of WITH 00:00: OF 1 [place] [facility]) 00 CAPSULE Medic al 18 mcg V[facility] inhalation INHALATION DEVICE DAILY DIRECTED tiotropium 2021-0 Yes [facility] (SPIRIVA 2-15 CONTENTS ity of WITH 00:00: OF 1 [place] [facility]) 00 CAPSULE Medic al 18 mcg [facility] inhalation INHALATION DEVICE DAILY DIRECTED tiotropium 2021-0 Yes [facility] (SPIRIVA 2-15 CONTENTS ity of WITH 00:00: OF 1 [place] [facility]) 00 CAPSULE Medic al 18 mcg V[facility] inhalation INHALATION DEVICE DAILY DIRECTED tiotropium 2021-0 Yes [facility] (SPIRIVA 2-15 CONTENTS ity of WITH 00:00: OF 1 [place] [facility]) 00 CAPSULE Medic al 18 mcg VIA [facility] inhalation INHALATION DEVICE DAILY DIRECTED tiotropium 2021-0 Yes [facility] (SPIRIVA 2-15 CONTENTS ity of WITH 00:00: OF 1 [place] [facility]) 00 CAPSULE Medic al 18 mcg V[facility] inhalation INHALATION DEVICE DAILY DIRECTED tiotropium 2-0 Yes [facility] (SPIRIVA 2-15 CONTENTS ity of WITH 00:00: OF 1 [place] [facility]) 00 CAPSULE Medic al 18 mcg VIA [facility] inhalation INHALATION DEVICE DAILY DIRECTED tiotropium 2-0 Yes [facility] (SPIRIVA 2-15 CONTENTS ity of WITH 00:00: OF 1 [place] [facility]) 00 CAPSULE Medic al 18 mcg VIA [facility] inhalation INHALATION DEVICE DAILY DIRECTED tiotropium 2-0 Yes [facility] (SPIRIVA 2-15 CONTENTS ity of WITH 00:00: OF 1 [place] [facility]) 00 CAPSULE Medic al 18 mcg VIA [facility] inhalation INHALATION DEVICE DAILY DIRECTED tiotropium 2022-0 Yes [facility] (SPIRIVA 2-15 CONTENTS ity of WITH 00:00: OF 1 [place] [facility]) 00 CAPSULE Medic al 18 mcg VIA [facility] inhalation INHALATION DEVICE DAILY DIRECTED tiotropium 2-0 Yes [facility] (SPIRIVA 2-15 CONTENTS ity of WITH 00:00: OF 1 [place] [facility]) 00 CAPSULE Medic al 18 mcg VIA [facility] inhalation INHALATION DEVICE DAILY DIRECTED tiotropium 2-0 Yes [facility] (SPIRIVA 2-15 CONTENTS ity of WITH 00:00: OF 1 [place] [facility]) 00 CAPSULE Medic al 18 mcg VIA [facility] inhalation INHALATION DEVICE DAILY DIRECTED tiotropium 2-0 Yes [facility] (SPIRIVA 2-15 CONTENTS ity of WITH 00:00: OF 1 [place] [facility]) 00 CAPSULE Medic al 18 mcg VIA [facility] inhalation INHALATION DEVICE DAILY DIRECTED tiotropium 2-0 Yes [facility] (SPIRIVA 2-15 CONTENTS ity of WITH 00:00: OF 1 [place] [facility]) 00 CAPSULE Medic al 18 mcg VIA [facility] inhalation INHALATION DEVICE DAILY DIRECTED tiotropium 2-0 Yes [facility] (SPIRIVA 2-15 CONTENTS ity of WITH 00:00: OF 1 [place] [facility]) 00 CAPSULE Medic al 18 mcg VIA [facility] inhalation INHALATION DEVICE DAILY DIRECTED tiotropium 2-0 Yes [facility] (SPIRIVA 2-15 CONTENTS ity of WITH 00:00: OF 1 [place] [facility]) 00 CAPSULE Medic al 18 mcg VIA [facility] inhalation INHALATION DEVICE DAILY DIRECTED tiotropium 2022-0 Yes [facility] (SPIRIVA 2-15 CONTENTS ity of WITH 00:00: OF 1 [place] [facility]) 00 CAPSULE Medic al 18 mcg VIA [facility] inhalation INHALATION DEVICE DAILY DIRECTED tiotropium 2022-0 Yes [facility] (SPIRIVA 2-15 CONTENTS ity of WITH 00:00: OF 1 [place] [facility]) 00 CAPSULE Medic al 18 mcg [facility] inhalation INHALATION DEVICE DAILY DIRECTED tiotropium 2022-0 Yes [facility] (SPIRIVA 2-15 CONTENTS ity of WITH 00:00: OF 1 [place] [facility]) 00 CAPSULE Medic al 18 mcg VIA [facility] inhalation INHALATION DEVICE DAILY DIRECTED tiotropium 2022-0 Yes [facility] (SPIRIVA 2-15 CONTENTS ity of WITH 00:00: OF 1 [place] [facility]) 00 CAPSULE Medic al 18 mcg VIA [facility] inhalation INHALATION DEVICE DAILY DIRECTED tiotropium 2022-0 Yes [facility] (SPIRIVA 2-15 CONTENTS ity of WITH 00:00: OF 1 [place] [facility]) 00 CAPSULE Medic al 18 mcg VIA [facility] inhalation INHALATION DEVICE DAILY DIRECTED tiotropium 2-0 Yes [facility] (SPIRIVA 2-15 CONTENTS ity of WITH 00:00: OF 1 [place] [facility]) 00 CAPSULE Medic al 18 mcg VIA [facility] inhalation INHALATION DEVICE DAILY DIRECTED tiotropium 2022-0 Yes [facility] (SPIRIVA 2-15 CONTENTS ity of WITH 00:00: OF 1 [place] [facility]) 00 CAPSULE Medic al 18 mcg VIA [facility] inhalation INHALATION DEVICE DAILY DIRECTED tiotropium 2-0 Yes [facility] (SPIRIVA 2-15 CONTENTS ity of WITH 00:00: OF 1 [place] [facility]) 00 CAPSULE Medic al 18 mcg VIA [facility] inhalation INHALATION DEVICE DAILY DIRECTED tiotropium 2022-0 Yes [facility] (SPIRIVA 2-15 CONTENTS ity of WITH 00:00: OF 1 [place] [facility]) 00 CAPSULE Medic al 18 mcg VIA [facility] inhalation INHALATION DEVICE DAILY DIRECTED tiotropium 2022-0 Yes [facility] (SPIRIVA 2-15 CONTENTS ity of WITH 00:00: OF 1 [place] [facility]) 00 CAPSULE Medic al 18 mcg VIA [facility] inhalation INHALATION DEVICE DAILY DIRECTED tiotropium 2022-0 Yes [facility] (SPIRIVA 2-15 CONTENTS ity of WITH 00:00: OF 1 [place] [facility]) 00 CAPSULE Medic al 18 mcg VIA [facility] inhalation INHALATION DEVICE DAILY DIRECTED tiotropium 2022-0 Yes [facility] (SPIRIVA 2-15 CONTENTS ity of WITH 00:00: OF 1 [place] [facility]) 00 CAPSULE Medic al 18 mcg VIA [facility] inhalation INHALATION DEVICE DAILY DIRECTED tiotropium 2-0 Yes [facility] (SPIRIVA 2-15 CONTENTS ity of WITH 00:00: OF 1 [place] [facility]) 00 CAPSULE Medic al 18 mcg VIA [facility] inhalation INHALATION DEVICE DAILY DIRECTED tiotropium 2022-0 Yes [facility] (SPIRIVA 2-15 CONTENTS ity of WITH 00:00: OF 1 [place] [facility]) 00 CAPSULE Medic al 18 mcg VIA [facility] inhalation INHALATION DEVICE DAILY DIRECTED tiotropium 2-0 Yes [facility] (SPIRIVA 2-15 CONTENTS ity of WITH 00:00: OF 1 [place] [facility]) 00 CAPSULE Medic al 18 mcg VIA [facility] inhalation INHALATION DEVICE DAILY DIRECTED tiotropium 2-0 Yes [facility] (SPIRIVA 2-15 CONTENTS ity of WITH 00:00: OF 1 [place] [facility]) 00 CAPSULE Medic al 18 mcg VIA [facility] inhalation INHALATION DEVICE DAILY DIRECTED tiotropium 2-0 Yes [facility] (SPIRIVA 2-15 CONTENTS ity of WITH 00:00: OF 1 [place] [facility]) 00 CAPSULE Medic al 18 mcg VIA [facility] inhalation INHALATION DEVICE DAILY DIRECTED tiotropium 2022-0 Yes [facility] (SPIRIVA 2-15 CONTENTS ity of WITH 00:00: OF 1 [place] [facility]) 00 CAPSULE Medic al 18 mcg VIA [facility] inhalation INHALATION DEVICE DAILY DIRECTED tiotropium 2022-0 Yes [facility] (SPIRIVA 2-15 CONTENTS ity of WITH 00:00: OF 1 [place] [facility]) 00 CAPSULE Medic al 18 mcg VIA [facility] inhalation INHALATION DEVICE DAILY DIRECTED tiotropium 2022-0 Yes [facility] (SPIRIVA 2-15 CONTENTS ity of WITH 00:00: OF 1 [place] [facility]) 00 CAPSULE Medic al 18 mcg VIA [facility] inhalation INHALATION DEVICE DAILY DIRECTED tiotropium 2022-0 Yes [facility] (SPIRIVA 2-15 CONTENTS ity of WITH 00:00: OF 1 [place] [facility]) 00 CAPSULE Medic al 18 mcg VIA [facility] inhalation INHALATION DEVICE DAILY DIRECTED tiotropium 2022-0 Yes [facility] (SPIRIVA 2-15 CONTENTS ity of WITH 00:00: OF 1 [place] [facility]) 00 CAPSULE Medic al 18 mcg VIA [facility] inhalation INHALATION DEVICE DAILY DIRECTED tiotropium 2022-0 Yes [facility] (SPIRIVA 2-15 CONTENTS ity of WITH 00:00: OF 1 [place] [facility]) 00 CAPSULE Medic al 18 mcg VIA [facility] inhalation INHALATION DEVICE DAILY DIRECTED tiotropium 2022-0 Yes [facility] (SPIRIVA 2-15 CONTENTS ity of WITH 00:00: OF 1 [place] [facility]) 00 CAPSULE Medic al 18 mcg VIA [facility] inhalation INHALATION DEVICE DAILY DIRECTED tiotropium 2022-0 Yes [facility] (SPIRIVA 2-15 CONTENTS ity of WITH 00:00: OF 1 [place] [facility]) 00 CAPSULE Medic al 18 mcg VIA [facility] inhalation INHALATION DEVICE DAILY DIRECTED tiotropium 2022-0 Yes [facility] (SPIRIVA 2-15 CONTENTS ity of WITH 00:00: OF 1 [place] [facility]) 00 CAPSULE Medic al 18 mcg VIA [facility] inhalation INHALATION DEVICE DAILY DIRECTED tiotropium 2-0 Yes [facility] (SPIRIVA 2-15 CONTENTS ity of WITH 00:00: OF 1 [place] [facility]) 00 CAPSULE Medic al 18 mcg VIA [facility] inhalation INHALATION DEVICE DAILY DIRECTED tiotropium 2022-0 Yes [facility] (SPIRIVA 2-15 CONTENTS ity of WITH 00:00: OF 1 [place] [facility]) 00 CAPSULE Medic al 18 mcg VIA [facility] inhalation INHALATION DEVICE DAILY DIRECTED tiotropium 2022-0 Yes [facility] (SPIRIVA 2-15 CONTENTS ity of WITH 00:00: OF 1 [place] [facility]) 00 CAPSULE Medic al 18 mcg VIA [facility] inhalation INHALATION DEVICE DAILY DIRECTED tiotropium 2022-0 Yes [facility] (SPIRIVA 2-15 CONTENTS ity of WITH 00:00: OF 1 [place] [facility]) 00 CAPSULE Medic al 18 mcg VIA [facility] inhalation INHALATION DEVICE DAILY DIRECTED tiotropium 2022-0 Yes [facility] (SPIRIVA 2-15 CONTENTS ity of WITH 00:00: OF 1 [place] [facility]) 00 CAPSULE Medic al 18 mcg VIA [facility] inhalation INHALATION DEVICE DAILY DIRECTED tiotropium 2021-0 Yes [facility] (SPIRIVA 2-15 CONTENTS ity of WITH 00:00: OF 1 [place] [facility]) 00 CAPSULE Medic al 18 mcg VIA [facility] inhalation INHALATION DEVICE DAILY DIRECTED tiotropium 2021-0 Yes [facility] (SPIRIVA 2-15 CONTENTS ity of WITH 00:00: OF 1 [place] [facility]) 00 CAPSULE Medic al 18 mcg VIA [facility] inhalation INHALATION DEVICE DAILY DIRECTED tiotropium 2021-0 Yes [facility] (SPIRIVA 2-15 CONTENTS ity of WITH 00:00: OF 1 [place] [facility]) 00 CAPSULE Medic al 18 mcg VIA [facility] inhalation INHALATION DEVICE DAILY DIRECTED tiotropium 2021-0 Yes [facility] (SPIRIVA 2-15 CONTENTS ity of WITH 00:00: OF 1 [place] [facility]) 00 CAPSULE Medic al 18 mcg VIA [facility] inhalation INHALATION DEVICE DAILY DIRECTED tiotropium 2-0 Yes [facility] (SPIRIVA 2-15 CONTENTS ity of WITH 00:00: OF 1 [place] [facility]) 00 CAPSULE Medic al 18 mcg VIA [facility] inhalation INHALATION DEVICE DAILY DIRECTED tiotropium 2021-0 Yes [facility] (SPIRIVA 2-15 CONTENTS ity of WITH 00:00: OF 1 [place] [facility]) 00 CAPSULE Medic al 18 mcg VIA [facility] inhalation INHALATION DEVICE DAILY DIRECTED tiotropium 2-0 Yes [facility] (SPIRIVA 2-15 CONTENTS ity of WITH 00:00: OF 1 [place] [facility]) 00 CAPSULE Medic al 18 mcg VIA [facility] inhalation INHALATION DEVICE DAILY DIRECTED tiotropium 2-0 Yes [facility] (SPIRIVA 2-15 CONTENTS ity of WITH 00:00: OF 1 [place] [facility]) 00 CAPSULE Medic al 18 mcg VIA [facility] inhalation INHALATION DEVICE DAILY DIRECTED tiotropium 2022-0 Yes [facility] (SPIRIVA 2-15 CONTENTS ity of WITH 00:00: OF 1 [place] [facility]) 00 CAPSULE Medic al 18 mcg VIA [facility] inhalation INHALATION DEVICE DAILY DIRECTED tiotropium 2022-0 Yes [facility] (SPIRIVA 2-15 CONTENTS ity of WITH 00:00: OF 1 [place] [facility]) 00 CAPSULE Medic al 18 mcg VIA [facility] inhalation INHALATION DEVICE DAILY DIRECTED tiotropium 2022-0 Yes [facility] (SPIRIVA 2-15 CONTENTS ity of WITH 00:00: OF 1 [place] [facility]) 00 CAPSULE Medic al 18 mcg VIA [facility] inhalation INHALATION DEVICE DAILY DIRECTED tiotropium 2022-0 Yes [facility] (SPIRIVA 2-15 CONTENTS ity of WITH 00:00: OF 1 [place] [facility]) 00 CAPSULE Medic al 18 mcg VIA [facility] inhalation INHALATION DEVICE DAILY DIRECTED tiotropium 2022-0 Yes [facility] (SPIRIVA 2-15 CONTENTS ity of WITH 00:00: OF 1 [place] [facility]) 00 CAPSULE Medic al 18 mcg VIA [facility] inhalation INHALATION DEVICE DAILY DIRECTED tiotropium 2022-0 Yes [facility] (SPIRIVA 2-15 CONTENTS ity of WITH 00:00: OF 1 [place] [facility]) 00 CAPSULE Medic al 18 mcg VIA [facility] inhalation INHALATION DEVICE DAILY DIRECTED tiotropium 2-0 Yes [facility] (SPIRIVA 2-15 CONTENTS ity of WITH 00:00: OF 1 [place] [facility]) 00 CAPSULE Medic al 18 mcg VIA [facility] inhalation INHALATION DEVICE DAILY DIRECTED tiotropium 2022-0 Yes [facility] (SPIRIVA 2-15 CONTENTS ity of WITH 00:00: OF 1 [place] [facility]) 00 CAPSULE Medic al 18 mcg VIA [facility] inhalation INHALATION DEVICE DAILY DIRECTED tiotropium 2022-0 Yes [facility] (SPIRIVA 2-15 CONTENTS ity of WITH 00:00: OF 1 [place] [facility]) 00 CAPSULE Medic al 18 mcg VIA [facility] inhalation INHALATION DEVICE DAILY DIRECTED tiotropium 2022-0 Yes [facility] (SPIRIVA 2-15 CONTENTS ity of WITH 00:00: OF 1 [place] [facility]) 00 CAPSULE Medic al 18 mcg VIA Branch inhalation INHALATION DEVICE DAILY DIRECTED tiotropium 2022-0 Yes [id number] [facility] (SPIRIVA 2-15 CONTENTS ity of WITH 00:00: OF 1 [place] [facility]) 00 CAPSULE Medic al 18 mcg VIA [facility] inhalation INHALATION DEVICE DAILY DIRECTED tiotropium 2021-0 Yes [id number] [facility] (SPIRIVA 2-15 CONTENTS ity of WITH 00:00: OF 1 [place] [facility]) 00 CAPSULE Medic al 18 mcg VIA [facility] inhalation INHALATION DEVICE DAILY DIRECTED tiotropium 2021-0 Yes [id number] [facility] (SPIRIVA 2-15 CONTENTS ity of WITH 00:00: OF 1 [place] [facility]) 00 CAPSULE Medic al 18 mcg VIA [facility] inhalation INHALATION DEVICE DAILY DIRECTED tiotropium 2021-0 Yes [id number] [facility] (SPIRIVA 2-15 CONTENTS ity of WITH 00:00: OF 1 [place] [facility]) 00 CAPSULE Medic al 18 mcg VIA [facility] inhalation INHALATION DEVICE DAILY DIRECTED tiotropium 2021-0 Yes [id number] [facility] (SPIRIVA 2-15 CONTENTS ity of WITH 00:00: OF 1 [place] [facility]) 00 CAPSULE Medic al 18 mcg VIA [facility] inhalation INHALATION DEVICE DAILY DIRECTED tiotropium 2021-0 3- No [id number] [facility] (SPIRIVA 2-15 05-04 CONTENTS ity of WITH 00:00: 00:00 OF 1 [place] [facility]) 00 :00 CAPSULE Medic al 18 mcg VIA Branch inhalation INHALATION DEVICE DAILY DIRECTED tiotropium 2021-0 3- No [id number] [facility] (SPIRIVA 2-15 05-04 CONTENTS ity of WITH 00:00: 00:00 OF 1 [place] [facility]) 00 :00 CAPSULE Medic al 18 mcg VIA [facility] inhalation INHALATION DEVICE DAILY DIRECTED albuterol 2020-0 Yes [id number] 2{puff} Inh[facility] 2 [facility] 90 9-01 Puffs ity of mcg/actuati 00:00: every 6 [place] as on inhaler 00 (six) Medical hours as Branch needed for Wheezing or Shortness of Breath. albuterol 2020-0 Yes [id number] 2{puff} Inhale 2 [facility] 90 9-01 Puffs ity of mcg/actuati 00:00: every 6 [place] as on inhaler 00 (six) Medical hours as Branch needed for Wheezing or Shortness of Breath. albuterol Yes [id number] 2{puff} Inhale 2 [facility] 90 9-01 Puffs ity of mcg/actuati 00:00: every 6 [place] as on inhaler 00 (six) Medical hours as Branch needed for Wheezing or Shortness of Breath. albuterol Yes [id number] 2{puff} Inhale 2 [facility] 90 9-01 Puffs ity of mcg/actuati 00:00: every 6 [place] as on inhaler 00 (six) Medical hours as Branch needed for Wheezing or Shortness of Breath. albuterol Yes [id number] 2{puff} Inhale 2 [facility] 90 9-01 Puffs ity of mcg/actuati 00:00: every 6 [place] as on inhaler 00 (six) Medical hours as Branch needed for Wheezing or Shortness of Breath. albuterol Yes [id number] 2{puff} Inhale 2 [facility] 90 9-01 Puffs ity of mcg/actuati 00:00: every 6 [place] as on inhaler 00 (six) Medical hours as Branch needed for Wheezing or Shortness of Breath. albuterol Yes [id number] 2{puff} Inhale 2 [facility] 90 9-01 Puffs ity of mcg/actuati 00:00: every 6 [place] as on inhaler 00 (six) Medical hours as Branch needed for Wheezing or Shortness of Breath. albuterol Yes [id number] 2{puff} Inhale 2 [facility] 90 9-01 Puffs ity of mcg/actuati 00:00: every 6 [place] as on inhaler 00 (six) Medical hours as Branch needed for Wheezing or Shortness of Breath. albuterol Yes [id number] 2{puff} Inhale 2 [facility] 90 9-01 Puffs ity of mcg/actuati 00:00: every 6 [place] as on inhaler 00 (six) Medical hours as Branch needed for Wheezing or Shortness of Breath. albuterol Yes [id number] 2{puff} Inhale 2 [facility] 90 [facility]01 Puffs ity of mcg/actuati 00:00: every 6 [place] as on inhaler 00 (six) Medical hours as Branch needed for Wheezing or Shortness of Breath. albuterol Yes [id number] 2{puff} Inhale 2 [facility] 90 9-01 Puffs ity of mcg/actuati 00:00: every 6 [place] as on inhaler 00 (six) Medical hours as Branch needed for Wheezing or Shortness of Breath. albuterol Yes [id number] 2{puff} Inhale 2 [facility] 90 9-01 Puffs ity of mcg/actuati 00:00: every 6 [place] as on inhaler 00 (six) Medical hours as Branch needed for Wheezing or Shortness of Breath. albuterol Yes [id number] 2{puff} Inhale 2 [facility] 90 9-01 Puffs ity of mcg/actuati 00:00: every 6 [place] as on inhaler 00 (six) Medical hours as Branch needed for Wheezing or Shortness of Breath. albuterol Yes [id number] 2{puff} Inhale 2 [facility] 90 9-01 Puffs ity of mcg/actuati 00:00: every 6 [place] as on inhaler 00 (six) Medical hours as Branch needed for Wheezing or Shortness of Breath. albuterol Yes [id number] 2{puff} Inhale 2 [facility] 90 9-01 Puffs ity of mcg/actuati 00:00: every 6 [place] as on inhaler 00 (six) Medical hours as Branch needed for Wheezing or Shortness of Breath. albuterol Yes [id number] 2{puff} Inhale 2 [facility] 90 9-01 Puffs ity of mcg/actuati 00:00: every 6 [place] as on inhaler 00 (six) Medical hours as Branch needed for Wheezing or Shortness of Breath. albuterol Yes [id number] 2{puff} Inhale 2 [facility] 90 9-01 Puffs ity of mcg/actuati 00:00: every 6 [place] as on inhaler 00 (six) Medical hours as Branch needed for Wheezing or Shortness of Breath. albuterol Yes [id number] 2{puff} Inhale 2 [facility] 90 9-01 Puffs ity of mcg/actuati 00:00: every 6 [place] as on inhaler 00 (six) Medical hours as Branch needed for Wheezing or Shortness of Breath. albuterol Yes [id number] 2{puff} Inhale 2 [facility] 90 9-01 Puffs ity of mcg/actuati 00:00: every 6 [place] as on inhaler 00 (six) Medical hours as Branch needed for Wheezing or Shortness of Breath. albuterol Yes [id number] 2{puff} Inhale 2 [facility] 90 9-01 Puffs ity of mcg/actuati 00:00: every 6 [place] as on inhaler 00 (six) Medical hours as Branch needed for Wheezing or Shortness of Breath. albuterol Yes [id number] 2{puff} Inhale 2 [facility] 90 9-01 Puffs ity of mcg/actuati 00:00: every 6 [place] as on inhaler 00 (six) Medical hours as Branch needed for Wheezing or Shortness of Breath. albuterol Yes [id number] 2{puff} Inhale 2 [facility] 90 9-01 Puffs ity of mcg/actuati 00:00: every 6 [place] as on inhaler 00 (six) Medical hours as Branch needed for Wheezing or Shortness of Breath. albuterol Yes [id number] 2{puff} Inhale 2 [facility] 90 9-01 Puffs ity of mcg/actuati 00:00: every 6 [place] as on inhaler 00 (six) Medical hours as Branch needed for Wheezing or Shortness of Breath. albuterol Yes [id number] 2{puff} Inhale 2 [facility] 90 9-01 Puffs ity of mcg/actuati 00:00: every 6 [place] as on inhaler 00 (six) Medical hours as Branch needed for Wheezing or Shortness of Breath. albuterol Yes [id number] 2{puff} Inhale 2 [facility] 90 9-01 Puffs ity of mcg/actuati 00:00: every 6 [place] as on inhaler 00 (six) Medical hours as Branch needed for Wheezing or Shortness of Breath. albuterol Yes [id number] 2{puff} Inhale 2 [facility] 90 9-01 Puffs ity of mcg/actuati 00:00: every 6 [place] as on inhaler 00 (six) Medical hours as Branch needed for Wheezing or Shortness of Breath. albuterol Yes [id number] 2{puff} Inhale 2 [facility] 90 9-01 Puffs ity of mcg/actuati 00:00: every 6 [place] as on inhaler 00 (six) Medical hours as Branch needed for Wheezing or Shortness of Breath. albuterol Yes [id number] 2{puff} Inhale 2 [facility] 90 9-01 Puffs ity of mcg/actuati 00:00: every 6 [place] as on inhaler 00 (six) Medical hours as Branch needed for Wheezing or Shortness of Breath. albuterol Yes [id number] 2{puff} Inhale 2 [facility] 90 9-01 Puffs ity of mcg/actuati 00:00: every 6 [place] as on inhaler 00 (six) Medical hours as Branch needed for Wheezing or Shortness of Breath. albuterol Yes [id number] 2{puff} Inhale 2 [facility] 90 9-01 Puffs ity of mcg/actuati 00:00: every 6 [place] as on inhaler 00 (six) Medical hours as Branch needed for Wheezing or Shortness of Breath. albuterol Yes [id number] 2{puff} Inhale 2 [facility] 90 9-01 Puffs ity of mcg/actuati 00:00: every 6 [place] as on inhaler 00 (six) Medical hours as Branch needed for Wheezing or Shortness of Breath. albuterol Yes [id number] 2{puff} Inhale 2 [facility] 90 9-01 Puffs ity of mcg/actuati 00:00: every 6 [place] as on inhaler 00 (six) Medical hours as Branch needed for Wheezing or Shortness of Breath. albuterol Yes [id number] 2{puff} Inhale 2 [facility] 90 9-01 Puffs ity of mcg/actuati 00:00: every 6 [place] as on inhaler 00 (six) Medical hours as Branch needed for Wheezing or Shortness of Breath. albuterol Yes [id number] 2{puff} Inhale 2 [facility] 90 9-01 Puffs ity of mcg/actuati 00:00: every 6 [place] as on inhaler 00 (six) Medical hours as Branch needed for Wheezing or Shortness of Breath. albuterol Yes [id number] 2{puff} Inhale 2 [facility] 90 9-01 Puffs ity of mcg/actuati 00:00: every 6 [place] as on inhaler 00 (six) Medical hours as Branch needed for Wheezing or Shortness of Breath. albuterol Yes [id number] 2{puff} Inhale 2 [facility] 90 9-01 Puffs ity of mcg/actuati 00:00: every 6 [place] as on inhaler 00 (six) Medical hours as Branch needed for Wheezing or Shortness of Breath. albuterol Yes [id number] 2{puff} Inhale 2 [facility] 90 9-01 Puffs ity of mcg/actuati 00:00: every 6 [place] as on inhaler 00 (six) Medical hours as Branch needed for Wheezing or Shortness of Breath. albuterol Yes [id number] 2{puff} Inhale 2 [facility] 90 9-01 Puffs ity of mcg/actuati 00:00: every 6 [place] as on inhaler 00 (six) Medical hours as Branch needed for Wheezing or Shortness of Breath. albuterol Yes [id number] 2{puff} Inhale 2 [facility] 90 9-01 Puffs ity of mcg/actuati 00:00: every 6 [place] as on inhaler 00 (six) Medical hours as Branch needed for Wheezing or Shortness of Breath. albuterol Yes [id number] 2{puff} Inhale 2 [facility] 90 9-01 Puffs ity of mcg/actuati 00:00: every 6 [place] as on inhaler 00 (six) Medical hours as Branch needed for Wheezing or Shortness of Breath. albuterol Yes [id number] 2{puff} Inhale 2 [facility] 90 9-01 Puffs ity of mcg/actuati 00:00: every 6 [place] as on inhaler 00 (six) Medical hours as Branch needed for Wheezing or Shortness of Breath. albuterol Yes [id number] 2{puff} Inhale 2 [facility] 90 9-01 Puffs ity of mcg/actuati 00:00: every 6 [place] as on inhaler 00 (six) Medical hours as Branch needed for Wheezing or Shortness of Breath. albuterol Yes [id number] 2{puff} Inhale 2 [facility] 90 9-01 Puffs ity of mcg/actuati 00:00: every 6 [place] as on inhaler 00 (six) Medical hours as Branch needed for Wheezing or Shortness of Breath. albuterol Yes [id number] 2{puff} Inhale 2 [facility] 90 9-01 Puffs ity of mcg/actuati 00:00: every 6 [place] as on inhaler 00 (six) Medical hours as Branch needed for Wheezing or Shortness of Breath. albuterol Yes [id number] 2{puff} Inhale 2 [facility] 90 9-01 Puffs ity of mcg/actuati 00:00: every 6 [place] as on inhaler 00 (six) Medical hours as Branch needed for Wheezing or Shortness of Breath. albuterol Yes [id number] 2{puff} Inhale 2 [facility] 90 9-01 Puffs ity of mcg/actuati 00:00: every 6 [place] as on inhaler 00 (six) Medical hours as Branch needed for Wheezing or Shortness of Breath. albuterol Yes [id number] 2{puff} Inhale 2 [facility] 90 9-01 Puffs ity of mcg/actuati 00:00: every 6 [place] as on inhaler 00 (six) Medical hours as Branch needed for Wheezing or Shortness of Breath. albuterol Yes [id number] 2{puff} Inhale 2 [facility] 90 9-01 Puffs ity of mcg/actuati 00:00: every 6 [place] as on inhaler 00 (six) Medical hours as Branch needed for Wheezing or Shortness of Breath. albuterol Yes [id number] 2{puff} Inhale 2 [facility] 90 9-01 Puffs ity of mcg/actuati 00:00: every 6 [place] as on inhaler 00 (six) Medical hours as Branch needed for Wheezing or Shortness of Breath. albuterol Yes [id number] 2{puff} Inhale 2 [facility] 90 9-01 Puffs ity of mcg/actuati 00:00: every 6 [place] as on inhaler 00 (six) Medical hours as Branch needed for Wheezing or Shortness of Breath. albuterol Yes [id number] 2{puff} Inhale 2 [facility] 90 9-01 Puffs ity of mcg/actuati 00:00: every 6 [place] as on inhaler 00 (six) Medical hours as Branch needed for Wheezing or Shortness of Breath. albuterol Yes [id number] 2{puff} Inhale 2 [facility] 90 9-01 Puffs ity of mcg/actuati 00:00: every 6 [place] as on inhaler 00 (six) Medical hours as Branch needed for Wheezing or Shortness of Breath. albuterol Yes [id number] 2{puff} Inhale 2 [facility] 90 9-01 Puffs ity of mcg/actuati 00:00: every 6 [place] as on inhaler 00 (six) Medical hours as Branch needed for Wheezing or Shortness of Breath. albuterol Yes [id number] 2{puff} Inhale 2 [facility] 90 9-01 Puffs ity of mcg/actuati 00:00: every 6 [place] as on inhaler 00 (six) Medical hours as Branch needed for Wheezing or Shortness of Breath. albuterol Yes [id number] 2{puff} Inhale 2 [facility] 90 9-01 Puffs ity of mcg/actuati 00:00: every 6 [place] as on inhaler 00 (six) Medical hours as Branch needed for Wheezing or Shortness of Breath. albuterol Yes [id number] 2{puff} Inhale 2 [facility] 90 9-01 Puffs ity of mcg/actuati 00:00: every 6 [place] as on inhaler 00 (six) Medical hours as Branch needed for Wheezing or Shortness of Breath. albuterol Yes [id number] 2{puff} Inhale 2 [facility] 90 9-01 Puffs ity of mcg/actuati 00:00: every 6 [place] as on inhaler 00 (six) Medical hours as Branch needed for Wheezing or Shortness of Breath. albuterol Yes [id number] 2{puff} Inhale 2 [facility] 90 9-01 Puffs ity of mcg/actuati 00:00: every 6 [place] as on inhaler 00 (six) Medical hours as Branch needed for Wheezing or Shortness of Breath. albuterol Yes [id number] 2{puff} Inhale 2 [facility] 90 9-01 Puffs ity of mcg/actuati 00:00: every 6 [place] as on inhaler 00 (six) Medical hours as Branch needed for Wheezing or Shortness of Breath. albuterol Yes [id number] 2{puff} Inhale 2 [facility] 90 9-01 Puffs ity of mcg/actuati 00:00: every 6 [place] as on inhaler 00 (six) Medical hours as Branch needed for Wheezing or Shortness of Breath. albuterol Yes [id number] 2{puff} Inhale 2 [facility] 90 9-01 Puffs ity of mcg/actuati 00:00: every 6 [place] as on inhaler 00 (six) Medical hours as Branch needed for Wheezing or Shortness of Breath. albuterol Yes [id number] 2{puff} Inhale 2 [facility] 90 9-01 Puffs ity of mcg/actuati 00:00: every 6 [place] as on inhaler 00 (six) Medical hours as Branch needed for Wheezing or Shortness of Breath. albuterol Yes [id number] 2{puff} Inhale 2 [facility] 90 9-01 Puffs ity of mcg/actuati 00:00: every 6 [place] as on inhaler 00 (six) Medical hours as Branch needed for Wheezing or Shortness of Breath. albuterol Yes [id number] 2{puff} Inhale 2 [facility] 90 9-01 Puffs ity of mcg/actuati 00:00: every 6 [place] as on inhaler 00 (six) Medical hours as Branch needed for Wheezing or Shortness of Breath. albuterol Yes [id number] 2{puff} Inhale 2 [facility] 90 9-01 Puffs ity of mcg/actuati 00:00: every 6 [place] as on inhaler 00 (six) Medical hours as Branch needed for Wheezing or Shortness of Breath. albuterol Yes [id number] 2{puff} Inhale 2 [facility] 90 9-01 Puffs ity of mcg/actuati 00:00: every 6 [place] as on inhaler 00 (six) Medical hours as Branch needed for Wheezing or Shortness of Breath. albuterol Yes [id number] 2{puff} Inhale 2 [facility] 90 9-01 Puffs ity of mcg/actuati 00:00: every 6 [place] as on inhaler 00 (six) Medical hours as Branch needed for Wheezing or Shortness of Breath. albuterol Yes [id number] 2{puff} Inhale 2 [facility] 90 9-01 Puffs ity of mcg/actuati 00:00: every 6 [place] as on inhaler 00 (six) Medical hours as Branch needed for Wheezing or Shortness of Breath. albuterol Yes [id number] 2{puff} Inhale 2 [facility] 90 9-01 Puffs ity of mcg/actuati 00:00: every 6 [place] as on inhaler 00 (six) Medical hours as Branch needed for Wheezing or Shortness of Breath. albuterol Yes [id number] 2{puff} Inhale 2 [facility] 90 9-01 Puffs ity of mcg/actuati 00:00: every 6 [place] as on inhaler 00 (six) Medical hours as Branch needed for Wheezing or Shortness of Breath. albuterol Yes [id number] 2{puff} Inhale 2 [facility] 90 9-01 Puffs ity of mcg/actuati 00:00: every 6 [place] as on inhaler 00 (six) Medical hours as Branch needed for Wheezing or Shortness of Breath. albuterol Yes [id number] 2{puff} Inhale 2 [facility] 90 9-01 Puffs ity of mcg/actuati 00:00: every 6 [place] as on inhaler 00 (six) Medical hours as Branch needed for Wheezing or Shortness of Breath. albuterol Yes [id number] 2{puff} Inhale 2 [facility] 90 9-01 Puffs ity of mcg/actuati 00:00: every 6 [place] as on inhaler 00 (six) Medical hours as Branch needed for Wheezing or Shortness of Breath. albuterol Yes [id number] 2{puff} Inhale 2 [facility] 90 9-01 Puffs ity of mcg/actuati 00:00: every 6 [place] as on inhaler 00 (six) Medical hours as Branch needed for Wheezing or Shortness of Breath. albuterol Yes [id number] 2{puff} Inhale 2 [facility] 90 9-01 Puffs ity of mcg/actuati 00:00: every 6 [place] as on inhaler 00 (six) Medical hours as Branch needed for Wheezing or Shortness of Breath. albuterol Yes [id number] 2{puff} Inhale 2 [facility] 90 9-01 Puffs ity of mcg/actuati 00:00: every 6 [place] as on inhaler 00 (six) Medical hours as Branch needed for Wheezing or Shortness of Breath. albuterol Yes [id number] 2{puff} Inhale 2 [facility] 90 9-01 Puffs ity of mcg/actuati 00:00: every 6 [place] as on inhaler 00 (six) Medical hours as Branch needed for Wheezing or Shortness of Breath. albuterol Yes [id number] 2{puff} Inhale 2 [facility] 90 9-01 Puffs ity of mcg/actuati 00:00: every 6 [place] as on inhaler 00 (six) Medical hours as Branch needed for Wheezing or Shortness of Breath. albuterol Yes [id number] 2{puff} Inhale 2 [facility] 90 9-01 Puffs ity of mcg/actuati 00:00: every 6 [place] as on inhaler 00 (six) Medical hours as Branch needed for Wheezing or Shortness of Breath. albuterol Yes [id number] 2{puff} Inhale 2 [facility] 90 9-01 Puffs ity of mcg/actuati 00:00: every 6 [place] as on inhaler 00 (six) Medical hours as Branch needed for Wheezing or Shortness of Breath. albuterol Yes [id number] 2{puff} Inhale 2 [facility] 90 9-01 Puffs ity of mcg/actuati 00:00: every 6 [place] as on inhaler 00 (six) Medical hours as Branch needed for Wheezing or Shortness of Breath. albuterol Yes [id number] 2{puff} Inhale 2 [facility] 90 9-01 Puffs ity of mcg/actuati 00:00: every 6 [place] as on inhaler 00 (six) Medical hours as Branch needed for Wheezing or Shortness of Breath. albuterol Yes [id number] 2{puff} Inhale 2 [facility] 90 9-01 Puffs ity of mcg/actuati 00:00: every 6 [place] as on inhaler 00 (six) Medical hours as Branch needed for Wheezing or Shortness of Breath. albuterol Yes [id number] 2{puff} Inhale 2 [facility] 90 9-01 Puffs ity of mcg/actuati 00:00: every 6 [place] as on inhaler 00 (six) Medical hours as Branch needed for Wheezing or Shortness of Breath. albuterol Yes [id number] 2{puff} Inhale 2 [facility] 90 9-01 Puffs ity of mcg/actuati 00:00: every 6 [place] as on inhaler 00 (six) Medical hours as Branch needed for Wheezing or Shortness of Breath. albuterol Yes [id number] 2{puff} Inhale 2 [facility] 90 9-01 Puffs ity of mcg/actuati 00:00: every 6 [place] as on inhaler 00 (six) Medical hours as Branch needed for Wheezing or Shortness of Breath. albuterol Yes [id number] 2{puff} Inhale 2 [facility] 90 9-01 Puffs ity of mcg/actuati 00:00: every 6 [place] as on inhaler 00 (six) Medical hours as Branch needed for Wheezing or Shortness of Breath. albuterol Yes [id number] 2{puff} Inhale 2 [facility] 90 9-01 Puffs ity of mcg/actuati 00:00: every 6 [place] as on inhaler 00 (six) Medical hours as Branch needed for Wheezing or Shortness of Breath. albuterol Yes [id number] 2{puff} Inhale 2 [facility] 90 9-01 Puffs ity of mcg/actuati 00:00: every 6 [place] as on inhaler 00 (six) Medical hours as Branch needed for Wheezing or Shortness of Breath. albuterol Yes [id number] 2{puff} Inhale 2 [facility] 90 9-01 Puffs ity of mcg/actuati 00:00: every 6 [place] as on inhaler 00 (six) Medical hours as Branch needed for Wheezing or Shortness of Breath. albuterol Yes [id number] 2{puff} Inhale 2 [facility] 90 9-01 Puffs ity of mcg/actuati 00:00: every 6 [place] as on inhaler 00 (six) Medical hours as Branch needed for Wheezing or Shortness of Breath. albuterol Yes [id number] 2{puff} Inhale 2 [facility] 90 9-01 Puffs ity of mcg/actuati 00:00: every 6 [place] as on inhaler 00 (six) Medical hours as Branch needed for Wheezing or Shortness of Breath. albuterol Yes [id number] 2{puff} Inhale 2 [facility] 90 9-01 Puffs ity of mcg/actuati 00:00: every 6 [place] as on inhaler 00 (six) Medical hours as Branch needed for Wheezing or Shortness of Breath. albuterol Yes [id number] 2{puff} Inhale 2 [facility] 90 9-01 Puffs ity of mcg/actuati 00:00: every 6 [place] as on inhaler 00 (six) Medical hours as Branch needed for Wheezing or Shortness of Breath. albuterol Yes [id number] 2{puff} Inhale 2 [facility] 90 9-01 Puffs ity of mcg/actuati 00:00: every 6 [place] as on inhaler 00 (six) Medical hours as Branch needed for Wheezing or Shortness of Breath. albuterol Yes [id number] 2{puff} Inhale 2 [facility] 90 9-01 Puffs ity of mcg/actuati 00:00: every 6 [place] as on inhaler 00 (six) Medical hours as Branch needed for Wheezing or Shortness of Breath. albuterol Yes [id number] 2{puff} Inhale 2 [facility] 90 9-01 Puffs ity of mcg/actuati 00:00: every 6 [place] as on inhaler 00 (six) Medical hours as Branch needed for Wheezing or Shortness of Breath. albuterol Yes [id number] 2{puff} Inhale 2 [facility] 90 9-01 Puffs ity of mcg/actuati 00:00: every 6 [place] as on inhaler 00 (six) Medical hours as Branch needed for Wheezing or Shortness of Breath. albuterol Yes [id number] 2{puff} Inhale 2 [facility] 90 9-01 Puffs ity of mcg/actuati 00:00: every 6 [place] as on inhaler 00 (six) Medical hours as Branch needed for Wheezing or Shortness of Breath. albuterol Yes [id number] 2{puff} Inhale 2 [facility] 90 9-01 Puffs ity of mcg/actuati 00:00: every 6 [place] as on inhaler 00 (six) Medical hours as Branch needed for Wheezing or Shortness of Breath. albuterol Yes [id number] 2{puff} Inhale 2 [facility] 90 9-01 Puffs ity of mcg/actuati 00:00: every 6 [place] as on inhaler 00 (six) Medical hours as Branch needed for Wheezing or Shortness of Breath. albuterol Yes [id number] 2{puff} Inhale 2 [facility] 90 9-01 Puffs ity of mcg/actuati 00:00: every 6 [place] as on inhaler 00 (six) Medical hours as Branch needed for Wheezing or Shortness of Breath. albuterol Yes [id number] 2{puff} Inhale 2 [facility] 90 9-01 Puffs ity of mcg/actuati 00:00: every 6 [place] as on inhaler 00 (six) Medical hours as Branch needed for Wheezing or Shortness of Breath. albuterol Yes [id number] 2{puff} Inhale 2 [facility] 90 9-01 Puffs ity of mcg/actuati 00:00: every 6 [place] as on inhaler 00 (six) Medical hours as Branch needed for Wheezing or Shortness of Breath. albuterol Yes [id number] 2{puff} Inhale 2 [facility] 90 9-01 Puffs ity of mcg/actuati 00:00: every 6 [place] as on inhaler 00 (six) Medical hours as Branch needed for Wheezing or Shortness of Breath. albuterol Yes [id number] 2{puff} Inhale 2 [facility] 90 9-01 Puffs ity of mcg/actuati 00:00: every 6 [place] as on inhaler 00 (six) Medical hours as Branch needed for Wheezing or Shortness of Breath. albuterol Yes [id number] 2{puff} Inhale 2 [facility] 90 9-01 Puffs ity of mcg/actuati 00:00: every 6 [place] as on inhaler 00 (six) Medical hours as Branch needed for Wheezing or Shortness of Breath. albuterol Yes [id number] 2{puff} Inhale 2 [facility] 90 9-01 Puffs ity of mcg/actuati 00:00: every 6 [place] as on inhaler 00 (six) Medical hours as Branch needed for Wheezing or Shortness of Breath. albuterol Yes [id number] 2{puff} Inhale 2 [facility] 90 9-01 Puffs ity of mcg/actuati 00:00: every 6 [place] as on inhaler 00 (six) Medical hours as Branch needed for Wheezing or Shortness of Breath. albuterol Yes [id number] 2{puff} Inhale 2 [facility] 90 9-01 Puffs ity of mcg/actuati 00:00: every 6 [place] as on inhaler 00 (six) Medical hours as Branch needed for Wheezing or Shortness of Breath. albuterol Yes [id number] 2{puff} Inhale 2 [facility] 90 9-01 Puffs ity of mcg/actuati 00:00: every 6 [place] as on inhaler 00 (six) Medical hours as Branch needed for Wheezing or Shortness of Breath. albuterol Yes [id number] 2{puff} Inhale 2 [facility] 90 9-01 Puffs ity of mcg/actuati 00:00: every 6 [place] as on inhaler 00 (six) Medical hours as Branch needed for Wheezing or Shortness of Breath. albuterol Yes [id number] 2{puff} Inhale 2 [facility] 90 9-01 Puffs ity of mcg/actuati 00:00: every 6 [place] as on inhaler 00 (six) Medical hours as Branch needed for Wheezing or Shortness of Breath. albuterol Yes [id number] 2{puff} Inhale 2 [facility] 90 9-01 Puffs ity of mcg/actuati 00:00: every 6 [place] as on inhaler 00 (six) Medical hours as Branch needed for Wheezing or Shortness of Breath. albuterol Yes [id number] 2{puff} Inhale 2 [facility] 90 9-01 Puffs ity of mcg/actuati 00:00: every 6 [place] as on inhaler 00 (six) Medical hours as Branch needed for Wheezing or Shortness of Breath. albuterol Yes [id number] 2{puff} Inhale 2 [facility] 90 9-01 Puffs ity of mcg/actuati 00:00: every 6 [place] as on inhaler 00 (six) Medical hours as Branch needed for Wheezing or Shortness of Breath. albuterol Yes [id number] 2{puff} Inhale 2 [facility] 90 9-01 Puffs ity of mcg/actuati 00:00: every 6 [place] as on inhaler 00 (six) Medical hours as Branch needed for Wheezing or Shortness of Breath. albuterol Yes [id number] 2{puff} Inhale 2 [facility] 90 9-01 Puffs ity of mcg/actuati 00:00: every 6 [place] as on inhaler 00 (six) Medical hours as Branch needed for Wheezing or Shortness of Breath. albuterol Yes [id number] 2{puff} Inhale 2 [facility] 90 9-01 Puffs ity of mcg/actuati 00:00: every 6 [place] as on inhaler 00 (six) Medical hours as Branch needed for Wheezing or Shortness of Breath. albuterol Yes [id number] 2{puff} Inhale 2 [facility] 90 9-01 Puffs ity of mcg/actuati 00:00: every 6 [place] as on inhaler 00 (six) Medical hours as Branch needed for Wheezing or Shortness of Breath. albuterol Yes [id number] 2{puff} Inhale 2 [facility] 90 9-01 Puffs ity of mcg/actuati 00:00: every 6 [place] as on inhaler 00 (six) Medical hours as Branch needed for Wheezing or Shortness of Breath. albuterol Yes [id number] 2{puff} Inhale 2 [facility] 90 9-01 Puffs ity of mcg/actuati 00:00: every 6 [place] as on inhaler 00 (six) Medical hours as Branch needed for Wheezing or Shortness of Breath. albuterol Yes [id number] 2{puff} Inhale 2 [facility] 90 9-01 Puffs ity of mcg/actuati 00:00: every 6 [place] as on inhaler 00 (six) Medical hours as Branch needed for Wheezing or Shortness of Breath. albuterol Yes [id number] 2{puff} Inhale 2 [facility] 90 9-01 Puffs ity of mcg/actuati 00:00: every 6 [place] as on inhaler 00 (six) Medical hours as Branch needed for Wheezing or Shortness of Breath. albuterol Yes [id number] 2{puff} Inhale 2 [facility] 90 9-01 Puffs ity of mcg/actuati 00:00: every 6 [place] as on inhaler 00 (six) Medical hours as Branch needed for Wheezing or Shortness of Breath. albuterol Yes [id number] 2{puff} Inhale 2 [facility] 90 9-01 Puffs ity of mcg/actuati 00:00: every 6 [place] as on inhaler 00 (six) Medical hours as Branch needed for Wheezing or Shortness of Breath. albuterol Yes [id number] 2{puff} Inhale 2 [facility] 90 9-01 Puffs ity of mcg/actuati 00:00: every 6 [place] as on inhaler 00 (six) Medical hours as Branch needed for Wheezing or Shortness of Breath. albuterol Yes [id number] 2{puff} Inhale 2 [facility] 90 9-01 Puffs ity of mcg/actuati 00:00: every 6 [place] as on inhaler 00 (six) Medical hours as Branch needed for Wheezing or Shortness of Breath. albuterol Yes [id number] 2{puff} Inhale 2 [facility] 90 9-01 Puffs ity of mcg/actuati 00:00: every 6 [place] as on inhaler 00 (six) Medical hours as Branch needed for Wheezing or Shortness of Breath. albuterol Yes [id number] 2{puff} Inhale 2 [facility] 90 9-01 Puffs ity of mcg/actuati 00:00: every 6 [place] as on inhaler 00 (six) Medical hours as Branch needed for Wheezing or Shortness of Breath. albuterol Yes [id number] 2{puff} Inhale 2 [facility] 90 9-01 Puffs ity of mcg/actuati 00:00: every 6 [place] as on inhaler 00 (six) Medical hours as Branch needed for Wheezing or Shortness of Breath. albuterol 2022- No [id number] 2{puff} Inhale 2 [facility] 90 9-01 05-04 Puffs ity of mcg/actuati 00:00: 00:00 every 6 [place] on inhaler 00 :00 (six) Medical hours as Branch needed for Wheezing or Shortness of Breath. albuterol 3- No [id number] 2{puff} Inhale 2 [facility] 90 9-01 05-04 Puffs ity of mcg/actuati 00:00: 00:00 every 6 [place] inhaler 00 :00 (six) Medical hours as Branch needed for Wheezing or Shortness of Breath. DIGOXIN 2017- Yes .125mg QD Take 0[facility] [facility] (DIGOX 8-12 [facility]) 18:04: mouth Medical 44 daily . [place] ALPRAZolam Yes anxiety .5mg Q.[id number] Take 0.[address] [facility] (XANAX) 0.5 8-12 [id number] mg by [facility] MG tablet 18:04: 3D mouth 3 Medic al 44 (three) Center times daily. amLODIPine 2017 Yes 10mg QD Take [address] [facility] (NORVASC) 8-12 by [facility] 10 MG 18:04: daily. Medical tablet 44 Center metoprolol Yes 50mg Take [address] [facility] (LOPRESSOR) 8-12 by mouth. [facility] es 50 MG 18:04: Medical tablet 44 [place] valsartan Yes 160mg QD Take [address] [facility] (DIOVAN) 8-12 mg by [facility] 160 MG 18:04: mouth Medical tablet 44 daily. [place] hydroCHLORO Yes 25mg QD Take [address] [facility] thiazide 8-12 by mouth [facility] (MICROZIDE) 18:04: every Medic al 12.5 mg 44 morning. [place] capsule pravastatin Yes 40mg QD Take [address] [facility] (PRAVACHOL) 8-12 by mouth [facility] 40 MG 18:04: nightly. Medical tablet 44 [place] hydrOXYzine Yes 25mg Take [address] [facility] (ATARAX) 25 8-12 by mouth [facility] MG tablet 18:04: every 6 Medic al 44 (six) Center hours as needed for Itching. albuterol 20170 Yes 1{puff} Inhale [address] [facility] HFA 8-12 puff by [facility] (VENTOLIN 18:04: mouth via Med ical HFA) 90 44 inhaler Center mcg/actuati every 6 on inhaler (six) hours as needed for Wheezing or Shortness of Breath. tiotropium 2017-0 Yes 18ug QD Inhale [address] [facility] [address] [facility] (SPIRIVA) 8-12 mcg by [facility] 18 mcg 18:04: mouth via Medica l inhalation 44 inhaler Center capsule daily. DIGOXIN 2017-0 Yes .125mg QD Take 0.[address] [facility] [address] [facility] (DIGOX 8-12 mg by [facility]) 18:04: mouth Medical 44 daily . [place] ALPRAZolam 2017 Yes anxiety .5mg Q.[id number] Take 0.[address] [facility] (XANAX) 0.5 8-12 [id number] mg by [facility] MG tablet 18:04: 3D mouth 3 Medic al 44 (three) Center times daily. amLODIPine 2017-0 Yes 10mg QD Take [address] [facility] (NORVASC) 8-12 [facility] 10 MG 18:04: daily. Medical tablet 44 Center metoprolol 2017 Yes 50mg Take [address] [facility] (LOPRESSOR) 8-12 by mouth. [facility] 50 MG 18:04: Medical tablet 44 [place] valsartan Yes 160mg QD Take [address] [facility] (DIOVAN) 8-12 mg by [facility] 160 MG 18:04: mouth Medical tablet 44 daily. [place] hydroCHLORO 2017 Yes 25mg QD Take [address] [facility] thiazide 8-12 by mouth [facility] (MICROZIDE) 18:04: every Medic al 12.5 mg 44 morning. [place] capsule pravastatin Yes 40mg QD Take [address] [facility] (PRAVACHOL) 8-12 by mouth [facility] 40 MG 18:04: nightly. Medical tablet 44 [place] hydrOXYzine 0 Yes 25mg Take [address] [facility] (ATARAX) 25 8-12 by mouth [facility] MG tablet 18:04: every 6 Medic al 44 (six) Center hours as needed for Itching. albuterol 20170 Yes 1{puff} Inhale [address] HFA 8-12 puff by [facility] (VENTOLIN 18:04: mouth via Med ical HFA) 90 44 inhaler Center mcg/actuati every 6 on inhaler (six) hours as needed for Wheezing or Shortness of Breath. tiotropium 2017-0 Yes 18ug QD Inhale [address] [facility] [address] [facility] (SPIRIVA) 8-12 mcg by [facility] 18 mcg 18:04: mouth via Medica l inhalation 44 inhaler Center capsule daily. arformotero 2017-0 Yes 15ug Q.5D Take [address] [facility] (BROVANA) 8-12 (15 mcg [facility] 15 mcg/2 mL 00:00: total) by M edical nebulizer 00 nebulizati Cent er solution on 2 (two) times daily. arformotero 2017-0 Yes 15ug Q.5D Take [address] [facility] (BROVANA) 8-12 (15 mcg [facility] 15 mcg/2 mL 00:00: total) by M edical nebulizer [address] [facility] er solution on 2 (two) times daily. Immunizations Ordered Immunization Filled Immunization Date Status Commen ts Source Name Name Remdesivir 2022-01-10 Completed [facility] 00:00:00 [facility] Remdesivir 2022-01-10 Completed [facility] 00:00:00 [facility] Remdesivir 2022-01-10 Completed [facility] 00:00:00 [facility] Remdesivir 2022-01-10 Completed [facility] 00:00:00 [facility] Remdesivir 2022-01-10 Completed [facility] 00:00:00 [facility] Remdesivir 2022-01-10 Completed [facility] 00:00:00 [facility] Remdesivir 2022-01-10 Completed [facility] 00:00:00 [facility] Remdesivir 2022-01-10 Completed [facility] 00:00:00 [facility] Remdesivir 2022-01-10 Completed [facility] 00:00:00 [facility] Remdesivir 2022-01-10 Completed [facility] 00:00:00 [facility] Remdesivir 2022-01-10 Completed [facility] 00:00:00 [facility] Remdesivir 2022-01-10 Completed [facility] 00[facility]00:00 [facility] Remdesivir 2022-01-10 Completed [facility] 00:00:00 [facility] Remdesivir 2022-01-10 Completed [facility] 00:00:00 [facility] Remdesivir 2022-01-10 Completed [facility] 00:00:00 [facility] Remdesivir 2022-01-10 Completed [facility] 00:00:00 [facility] Remdesivir 2022-01-10 Completed [facility] 00:00:00 [facility] Remdesivir 2022-01-10 Completed [facility] 00:00:00 [facility] Remdesivir 2022-01-10 Completed [facility] 00:00:00 [facility] Remdesivir 2022-01-10 Completed [facility] 00:00:00 [facility] Remdesivir 2022-01-10 Completed [facility] 00:00:00 [facility] Remdesivir 2022-01-10 Completed [facility] 00:00:00 [facility] Remdesivir 2022-01-10 Completed [facility] 00:00:00 [facility] Remdesivir 2022-01-10 Completed [facility] 00:00:00 [facility] Remdesivir 2022-01-10 Completed [facility] 00:00:00 [facility] Remdesivir 2022-01-10 Completed [facility] 00:00:00 [facility] Remdesivir 2022-01-10 Completed [facility] 00:00:00 [facility] Remdesivir 2022-01-10 Completed [facility] 00:00:00 [facility] Remdesivir 2022-01-10 Completed [facility] 00:00:00 [facility] Remdesivir 2022-01-10 Completed [facility] 00:00:00 [facility] Remdesivir 2022-01-10 Completed [facility] 00:00:00 [facility] Remdesivir 2022-01-10 Completed [facility] 00:00:00 [facility] Remdesivir 2022-01-10 Completed [facility] 00:00:00 [facility] Remdesivir 2022-01-10 Completed [facility] 00:00:00 [facility] Remdesivir 2022-01-10 Completed [facility] 00:00:00 [facility] Remdesivir 2022-01-10 Completed [facility] 00:00:00 [facility] Remdesivir 2022-01-10 Completed [facility] 00:00:00 [facility] Remdesivir 2022-01-10 Completed [facility] 00:00:00 [facility] Remdesivir 2022-01-10 Completed [facility] 00:00:00 [facility] Remdesivir 2022-01-10 Completed [facility] 00:00:00 [facility] Remdesivir 2022-01-10 Completed [facility] 00:00:00 [facility] Remdesivir 2022-01-10 Completed [facility] 00:00:00 [facility] Remdesivir 2022-01-10 Completed [facility] 00:00:00 [facility] Remdesivir 2022-01-10 Completed [facility] 00:00:00 [facility] Remdesivir 2022-01-10 Completed [facility] 00:00:00 [facility] Remdesivir 2022-01-10 Completed [facility] 00:00:00 [facility] Remdesivir 2022-01-10 Completed [facility] 00:00:00 [facility] Remdesivir 2022-01-10 Completed [facility] 00:00:00 [facility] Remdesivir 2022-01-10 Completed [facility] 00:00:00 [facility] Remdesivir 2022-01-10 Completed [facility] 00:00:00 [facility] Remdesivir 2022-01-10 Completed [facility] 00:00:00 [facility] Remdesivir 2022-01-10 Completed [facility] 00:00:00 [facility] Remdesivir 2022-01-10 Completed [facility] 00:00:00 [facility] Remdesivir 2022-01-10 Completed [facility] 00:00:00 [facility] Remdesivir 2022-01-10 Completed [facility] 00:00:00 [facility] Remdesivir 2022-01-10 Completed [facility] 00:00:00 [facility] Remdesivir 2022-01-10 Completed [facility] 00:00:00 [facility] Remdesivir 2022-01-10 Completed [facility] 00:00:00 [facility] Remdesivir 2022-01-10 Completed [facility] 00:00:00 [facility] Remdesivir 2022-01-10 Completed [facility] 00:00:00 [facility] Remdesivir 2022-01-10 Completed [facility] 00:00:00 [facility] Remdesivir 2022-01-10 Completed [facility] 00:00:00 [facility] Remdesivir 2022-01-10 Completed [facility] 00:00:00 [facility] Remdesivir 2022-01-10 Completed [facility] 00:00:00 [facility] Remdesivir 2022-01-10 Completed [facility] 00:00:00 [facility] Remdesivir 2022-01-10 Completed [facility] 00:00:00 [facility] Remdesivir 2022-01-10 Completed [facility] 00:00:00 [facility] Remdesivir 2022-01-10 Completed [facility] 00:00:00 [facility] Remdesivir 2022-01-10 Completed [facility] 00:00:00 [facility] Remdesivir 2022-01-10 Completed [facility] 00:00:00 [facility] Remdesivir 2022-01-10 Completed [facility] 00:00:00 [facility] Remdesivir 2022-01-10 Completed [facility] 00:00:00 [facility] Remdesivir 2022-01-10 Completed [facility] 00:00:00 [facility] Remdesivir 2022-01-10 Completed [facility] 00:00:00 [facility] Remdesivir 2022-01-10 Completed [facility] 00:00:00 [facility] Remdesivir 2022-01-10 Completed [facility] 00:00:00 [facility] Remdesivir 2022-01-10 Completed [facility] 00:00:00 [facility] Remdesivir 2022-01-10 Completed [facility] 00:00:00 [facility] Remdesivir 2022-01-10 Completed [facility] 00:00:00 [facility] Remdesivir 2022-01-10 Completed [facility] 00:00:00 [facility] Remdesivir 2022-01-10 Completed [facility] 00:00:00 [facility] Remdesivir 2022-01-10 Completed [facility] 00:00:00 [facility] Remdesivir 2022-01-10 Completed [facility] 00:00:00 [facility] Remdesivir 2022-01-10 Completed [facility] 00:00:00 [facility] Remdesivir 2022-01-10 Completed [facility] 00:00:00 [facility] Remdesivir 2022-01-10 Completed [facility] 00:00:00 [facility] Remdesivir 2022-01-10 Completed [facility] 00:00:00 [facility] Remdesivir 2022-01-10 Completed [facility] 00:00:00 [facility] Remdesivir 2022-01-10 Completed [facility] 00:00:00 [facility] Remdesivir 2022-01-10 Completed [facility] 00:00:00 [facility] Remdesivir 2022-01-10 Completed [facility] 00:00:00 [facility] Remdesivir 2022-01-10 Completed [facility] 00:00:00 [facility] Remdesivir 2022-01-10 Completed [facility] 00:00:00 [facility] Remdesivir 2022-01-10 Completed [facility] 00:00:00 [facility] Remdesivir 2022-01-10 Completed [facility] 00:00:00 [facility] Remdesivir 2022-01-10 Completed [facility] 00:00:00 [facility] Remdesivir 2022-01-10 Completed [facility] 00:00:00 [facility] Remdesivir 2022-01-10 Completed [facility] 00:00:00 [facility] Remdesivir 2022-01-10 Completed [facility] 00:00:00 [facility] Remdesivir 2022-01-10 Completed [facility] 00:00:00 [facility] Remdesivir 2022-01-10 Completed [facility] 00:00:00 [facility] Remdesivir 2022-01-10 Completed [facility] 00:00:00 [facility] Remdesivir 2022-01-10 Completed [facility] 00:00:00 [facility] Remdesivir 2022-01-10 Completed [facility] 00:00:00 [facility] Remdesivir 2022-01-10 Completed [facility] 00:00:00 [facility] Remdesivir 2022-01-10 Completed [facility] 00:00:00 [facility] Remdesivir 2022-01-10 Completed [facility] 00:00:00 [facility] Remdesivir 2022-01-10 Completed [facility] 00:00:00 [facility] Remdesivir 2022-01-10 Completed [facility] 00:00:00 [facility] Remdesivir 2022-01-10 Completed [facility] 00:00:00 [facility] Remdesivir 2022-01-10 Completed [facility] 00:00:00 [facility] Remdesivir 2022-01-10 Completed [facility] 00:00:00 [facility] Remdesivir 2022-01-10 Completed [facility] 00:00:00 [facility] Remdesivir 2022-01-10 Completed [facility] 00:00:00 [facility] Remdesivir 2022-01-10 Completed [facility] 00:00:00 [facility] Remdesivir 2022-01-10 Completed [facility] 00:00:00 [facility] Remdesivir 2022-01-10 Completed [facility] 00:00:00 [facility] Remdesivir 2022-01-10 Completed [facility] 00:00:00 [facility] Remdesivir 2022-01-10 Completed [facility] 00:00:00 [facility] Remdesivir 2022-01-10 Completed [facility] 00:00:00 [facility] Remdesivir 2022-01-10 Completed [facility] 00:00:00 [facility] Remdesivir 2022-01-10 Completed [facility] 00:00:00 [facility] Remdesivir 2022-01-10 Completed [facility] 00:00:00 [facility] Remdesivir 2022-01-10 Completed [facility] 00:00:00 [facility] Remdesivir 2022-01-10 Completed [facility] 00:00:00 [facility] Remdesivir 2022-01-10 Completed [facility] 00:00:00 [facility] Remdesivir 2022-01-10 Completed [facility] 00:00:00 [facility] Remdesivir 2022-01-10 Completed [facility] 00:00:00 [facility] Remdesivir 2022-01-10 Completed [facility] 00:00:00 [facility] Remdesivir 2022-01-10 Completed [facility] 00:00:00 [facility] Remdesivir 2022-01-10 Completed [facility] 00:00:00 [facility] Remdesivir 2022-01-10 Completed [facility] 00:00:00 [facility] Remdesivir 2022-01-10 Completed [facility] 00:00:00 [facility] Remdesivir 2022-01-10 Completed [facility] 00:00:00 [facility] Remdesivir 2022-01-10 Completed [facility] 00:00:00 [facility] Remdesivir 2022-01-10 Completed [facility] 00:00:00 [facility] Remdesivir 2022-01-10 Completed [facility] 00:00:00 [facility] Remdesivir 2022-01-10 Completed [facility] 00:00:00 [facility] Remdesivir 2022-01-10 Completed [facility] 00:00:00 [facility] Remdesivir 2022-01-10 Completed [facility] 00:00:00 [facility] Remdesivir 2022-01-10 Completed [facility] 00:00:00 [facility] Remdesivir 2022-01-10 Completed [facility] 00:00:00 [facility] Remdesivir 2022-01-10 Completed [facility] 00:00:00 [facility] Remdesivir 2022-01-10 Completed [facility] 00:00:00 [facility] Remdesivir 2022-01-10 Completed [facility] 00:00:00 [facility] Remdesivir 2022-01-10 Completed [facility] 00:00:00 [facility] Remdesivir 2022-01-10 Completed [facility] 00:00:00 [facility] Remdesivir 2022-01-10 Completed [facility] 00:00:00 [facility] Remdesivir 2022-01-10 Completed [facility] 00:00:00 [facility] Remdesivir 2022-01-10 Completed [facility] 00:00:00 [facility] Remdesivir 2022-01-10 Completed [facility] 00:00:00 [facility] Remdesivir 2022-01-10 Completed [facility] 00:00:00 [facility] Remdesivir 2022-01-10 Completed [facility] 00:00:00 [facility] Remdesivir 2022-01-10 Completed [facility] 00:00:00 [facility] Remdesivir 2022-01-10 Completed [facility] 00:00:00 [facility] Remdesivir 2022-01-10 Completed [facility] 00:00:00 [facility] Remdesivir 2022-01-10 Completed [facility] 00:00:00 [facility] Remdesivir 2022-01-10 Completed [facility] 00:00:00 [facility] Remdesivir 2022-01-10 Completed [facility] 00:00:00 [facility] Remdesivir 2022-01-10 Completed [facility] 00:00:00 [facility] Remdesivir 2022-01-10 Completed [facility] 00:00:00 [facility] Remdesivir 2022-01-10 Completed [facility] 00:00:00 [facility] Remdesivir 2022-01-10 Completed [facility] 00:00:00 [facility] Remdesivir 2022-01-10 Completed [facility] 00:00:00 [facility] Remdesivir 2022-01-10 Completed [facility] 00:00:00 [facility] Remdesivir 2022-01-10 Completed [facility] 00:00:00 [facility] Remdesivir 2022-01-10 Completed [facility] 00:00:00 [facility] Remdesivir 2022-01-10 Completed [facility] 00:00:00 [facility] Remdesivir 2022-01-10 Completed [facility] 00:00:00 [facility] Remdesivir 2022-01-10 Completed [facility] 00:00:00 [facility] Remdesivir 2022-01-10 Completed [facility] 00:00:00 [facility] Remdesivir 2022-01-10 Completed [facility] 00:00:00 [facility] Remdesivir 2022-01-10 Completed [facility] 00:00:00 [facility] Remdesivir 2022-01-10 Completed [facility] 00:00:00 [facility] Remdesivir 2022-01-10 Completed [facility] 00:00:00 [facility] Remdesivir 2022-01-10 Completed [facility] 00:00:00 [facility] Remdesivir 2022-01-09 Completed [facility] 00:00:00 [facility] Remdesivir 2022-01-09 Completed [facility] 00:00:00 [facility] Remdesivir 2022-01-09 Completed [facility] 00:00:00 [facility] Remdesivir 2022-01-09 Completed [facility] 00:00:00 [facility] Remdesivir 2022-01-09 Completed [facility] 00:00:00 [facility] Remdesivir 2022-01-09 Completed [facility] 00:00:00 [facility] Remdesivir 2022-01-09 Completed [facility] 00:00:00 [facility] Remdesivir 2022-01-09 Completed [facility] 00:00:00 [facility] Remdesivir 2022-01-09 Completed [facility] 00:00:00 [facility] Remdesivir 2022-01-09 Completed [facility] 00:00:00 [facility] Remdesivir 2022-01-09 Completed [facility] 00:00:00 [facility] Remdesivir 2022-01-09 Completed [facility] 00:00:00 [facility] Remdesivir 2022-01-09 Completed [facility] 00:00:00 [facility] Remdesivir 2022-01-09 Completed [facility] 00:00:00 [facility] Remdesivir 2022-01-09 Completed [facility] 00:00:00 [facility] Remdesivir 2022-01-09 Completed [facility] 00:00:00 [facility] Remdesivir 2022-01-09 Completed [facility] 00:00:00 [facility] Remdesivir 2022-01-09 Completed [facility] 00:00:00 [facility] Remdesivir 2022-01-09 Completed [facility] 00:00:00 [facility] Remdesivir 2022-01-09 Completed [facility] 00:00:00 [facility] Remdesivir 2022-01-09 Completed [facility] 00:00:00 [facility] Remdesivir 2022-01-09 Completed [facility] 00:00:00 [facility] Remdesivir 2022-01-09 Completed [facility] 00:00:00 [facility] Remdesivir 2022-01-09 Completed [facility] 00:00:00 [facility] Remdesivir 2022-01-09 Completed [facility] 00:00:00 [facility] Remdesivir 2022-01-09 Completed [facility] 00:00:00 [facility] Remdesivir 2022-01-09 Completed [facility] 00:00:00 [facility] Remdesivir 2022-01-09 Completed [facility] 00:00:00 [facility] Remdesivir 2022-01-09 Completed [facility] 00:00:00 [facility] Remdesivir 2022-01-09 Completed [facility] 00:00:00 [facility] Remdesivir 2022-01-09 Completed [facility] 00:00:00 [facility] Remdesivir 2022-01-09 Completed [facility] 00:00:00 [facility] Remdesivir 2022-01-09 Completed [facility] 00:00:00 [facility] Remdesivir 2022-01-09 Completed [facility] 00:00:00 [facility] Remdesivir 2022-01-09 Completed [facility] 00:00:00 [facility] Remdesivir 2022-01-09 Completed [facility] 00:00:00 [facility] Remdesivir 2022-01-09 Completed [facility] 00:00:00 [facility] Remdesivir 2022-01-09 Completed [facility] 00:00:00 [facility] Remdesivir 2022-01-09 Completed [facility] 00:00:00 [facility] Remdesivir 2022-01-09 Completed [facility] 00:00:00 [facility] Remdesivir 2022-01-09 Completed [facility] 00:00:00 [facility] Remdesivir 2022-01-09 Completed [facility] 00:00:00 [facility] Remdesivir 2022-01-09 Completed [facility] 00:00:00 [facility] Remdesivir 2022-01-09 Completed [facility] 00:00:00 [facility] Remdesivir 2022-01-09 Completed [facility] 00:00:00 [facility] Remdesivir 2022-01-09 Completed [facility] 00:00:00 [facility] Remdesivir 2022-01-09 Completed [facility] 00:00:00 [facility] Remdesivir 2022-01-09 Completed [facility] 00:00:00 [facility] Remdesivir 2022-01-09 Completed [facility] 00:00:00 [facility] Remdesivir 2022-01-09 Completed [facility] 00:00:00 [facility] Remdesivir 2022-01-09 Completed [facility] 00:00:00 [facility] Remdesivir 2022-01-09 Completed [facility] 00:00:00 [facility] Remdesivir 2022-01-09 Completed [facility] 00:00:00 [facility] Remdesivir 2022-01-09 Completed [facility] 00:00:00 [facility] Remdesivir 2022-01-09 Completed [facility] 00:00:00 [facility] Remdesivir 2022-01-09 Completed [facility] 00:00:00 [facility] Remdesivir 2022-01-09 Completed [facility] 00:00:00 [facility] Remdesivir 2022-01-09 Completed [facility] 00:00:00 [facility] Remdesivir 2022-01-09 Completed [facility] 00:00:00 [facility] Remdesivir 2022-01-09 Completed [facility] 00:00:00 [facility] Remdesivir 2022-01-09 Completed [facility] 00:00:00 [facility] Remdesivir 2022-01-09 Completed [facility] 00:00:00 [facility] Remdesivir 2022-01-09 Completed [facility] 00:00:00 [facility] Remdesivir 2022-01-09 Completed [facility] 00:00:00 [facility] Remdesivir 2022-01-09 Completed [facility] 00:00:00 [facility] Remdesivir 2022-01-09 Completed [facility] 00:00:00 [facility] Remdesivir 2022-01-09 Completed [facility] 00:00:00 [facility] Remdesivir 2022-01-09 Completed [facility] 00:00:00 [facility] Remdesivir 2022-01-09 Completed [facility] 00:00:00 [facility] Remdesivir 2022-01-09 Completed [facility] 00:00:00 [facility] Remdesivir 2022-01-09 Completed [facility] 00:00:00 [facility] Remdesivir 2022-01-09 Completed [facility] 00:00:00 [facility] Remdesivir 2022-01-09 Completed [facility] 00:00:00 [facility] Remdesivir 2022-01-09 Completed [facility] 00:00:00 [facility] Remdesivir 2022-01-09 Completed [facility] 00:00:00 [facility] Remdesivir 2022-01-09 Completed [facility] 00:00:00 [facility] Remdesivir 2022-01-09 Completed [facility] 00:00:00 [facility] Remdesivir 2022-01-09 Completed [facility] 00:00:00 [facility] Remdesivir 2022-01-09 Completed [facility] 00:00:00 [facility] Remdesivir 2022-01-09 Completed [facility] 00:00:00 [facility] Remdesivir 2022-01-09 Completed [facility] 00:00:00 [facility] Remdesivir 2022-01-09 Completed [facility] 00:00:00 [facility] Remdesivir 2022-01-09 Completed [facility] 00:00:00 [facility] Remdesivir 2022-01-09 Completed [facility] 00:00:00 [facility] Remdesivir 2022-01-09 Completed [facility] 00:00:00 [facility] Remdesivir 2022-01-09 Completed [facility] 00:00:00 [facility] Remdesivir 2022-01-09 Completed [facility] 00:00:00 [facility] Remdesivir 2022-01-09 Completed [facility] 00:[facility]:00 [facility] [facility] Remdesivir 2022-01-09 Completed [facility]00 [facility] Rem[facility] 2022-01-09 Completed [facility] 00:00:00 [facility] Remdesivir 2022-01-09 Completed [facility] 00:00:00 [facility] Remdesivir 2022-01-09 Completed [facility] 00:00:00 [facility] Remdesivir 2022-01-09 Completed [facility] 00:00:00 [facility] Remdesivir 2022-01-09 Completed [facility] 00:00:00 [facility] Remdesivir 2022-01-09 Completed [facility] 00:00:00 [facility] Remdesivir 2022-01-09 Completed [facility] 00[facility]00:00 [facility] Remdesivir 2022-01-09 Completed [facility] 00:00:00 [facility] Remdesivir 2022-01-09 Completed [facility] 00:00:00 [facility] Remdesivir 2022-01-09 Completed [facility] 00:00:00 [facility] Remdesivir 2022-01-09 Completed [facility] 00:00:00 [facility] Remdesivir 2022-01-09 Completed [facility] 00:00:00 [facility] Remdesivir 2022-01-09 Completed [facility] 00:00:00 [facility] Remdesivir 2022-01-09 Completed [facility] 00:00:00 [facility] Remdesivir 2022-01-09 Completed [facility] 00:00:00 [facility] Remdesivir 2022-01-09 Completed [facility] 00:00:00 [facility] Remdesivir 2022-01-09 Completed [facility] 00:00:00 [facility] Remdesivir 2022-01-09 Completed [facility] 00:00:00 [facility] Remdesivir 2022-01-09 Completed [facility] 00:00:00 [facility] Remdesivir 2022-01-09 Completed [facility] 00:00:00 [facility] Remdesivir 2022-01-09 Completed [facility] 00:00:00 [facility] Remdesivir 2022-01-09 Completed [facility] 00:00:00 [facility] Remdesivir 2022-01-09 Completed [facility] 00:00:00 [facility] Remdesivir 2022-01-09 Completed [facility] 00:00:00 [facility] Remdesivir 2022-01-09 Completed [facility] 00:00:00 [facility] Remdesivir 2022-01-09 Completed [facility] 00:00:00 [facility] Remdesivir 2022-01-09 Completed [facility] 00:00:00 [facility] Remdesivir 2022-01-09 Completed [facility] 00:00:00 [facility] Remdesivir 2022-01-09 Completed [facility] 00:00:00 [facility] Remdesivir 2022-01-09 Completed [facility] 00:00:00 [facility] Remdesivir 2022-01-09 Completed [facility] 00:00:00 [facility] Remdesivir 2022-01-09 Completed [facility] 00:00:00 [facility] Remdesivir 2022-01-09 Completed [facility] 00:00:00 [facility] Remdesivir 2022-01-09 Completed [facility] 00:00:00 [facility] Remdesivir 2022-01-09 Completed [facility] 00:00:00 [facility] Remdesivir 2022-01-09 Completed [facility] 00:00:00 [facility] Remdesivir 2022-01-09 Completed [facility] 00:00:00 [facility] Remdesivir 2022-01-09 Completed [facility] 00:00:00 [facility] Remdesivir 2022-01-09 Completed [facility] 00:00:00 [facility] Remdesivir 2022-01-09 Completed [facility] 00:00:00 [facility] Remdesivir 2022-01-09 Completed [facility] 00:00:00 [facility] Remdesivir 2022-01-09 Completed [facility] 00:00:00 [facility] Remdesivir 2022-01-09 Completed [facility] 00:00:00 [facility] Remdesivir 2022-01-09 Completed [facility] 00:00:00 [facility] Remdesivir 2022-01-09 Completed [facility] 00:00:00 [facility] Remdesivir 2022-01-09 Completed [facility] 00:00:00 [facility] Remdesivir 2022-01-09 Completed [facility] 00:00:00 [facility] Remdesivir 2022-01-09 Completed [facility] 00:00:00 [facility] Remdesivir 2022-01-09 Completed [facility] 00:00:00 [facility] Remdesivir 2022-01-09 Completed [facility] 00:00:00 [facility] Remdesivir 2022-01-09 Completed [facility] 00:00:00 [facility] Remdesivir 2022-01-09 Completed [facility] 00:00:00 [facility] Remdesivir 2022-01-09 Completed [facility] 00:00:00 [facility] Remdesivir 2022-01-09 Completed [facility] 00:00:00 [facility] Remdesivir 2022-01-09 Completed [facility] 00:00:00 [facility] Remdesivir 2022-01-09 Completed [facility] 00:00:00 [facility] Remdesivir 2022-01-09 Completed [facility] 00:00:00 [facility] Remdesivir 2022-01-09 Completed [facility] 00:00:00 [facility] Remdesivir 2022-01-09 Completed [facility] 00:00:00 [facility] Remdesivir 2022-01-09 Completed [facility] 00:00:00 [facility] Remdesivir 2022-01-09 Completed [facility] 00:00:00 [facility] Remdesivir 2022-01-09 Completed [facility] 00:00:00 [facility] Remdesivir 2022-01-09 Completed [facility] 00:00:00 [facility] Remdesivir 2022-01-09 Completed [facility] 00:00:00 [facility] Remdesivir 2022-01-09 Completed [facility] 00:00:00 [facility] Remdesivir 2022-01-09 Completed [facility] 00:00:00 [facility] Remdesivir 2022-01-09 Completed [facility] 00:00:00 [facility] Remdesivir 2022-01-09 Completed [facility] 00:00:00 [facility] Remdesivir 2022-01-09 Completed [facility] 00:00:00 [facility] Remdesivir 2022-01-09 Completed [facility] 00:00:00 [facility] Remdesivir 2022-01-09 Completed [facility] 00:00:00 [facility] Remdesivir 2022-01-09 Completed [facility] 00:00:00 [facility] Remdesivir 2022-01-09 Completed [facility] 00:00:00 [facility] Remdesivir 2022-01-09 Completed [facility] 00:00:00 [facility] Remdesivir 2022-01-09 Completed [facility] 00:00:00 [facility] Remdesivir 2022-01-09 Completed [facility] 00:00:00 [facility] Remdesivir 2022-01-09 Completed [facility] 00:00:00 [facility] Remdesivir 2022-01-09 Completed [facility] 00:00:00 [facility] Remdesivir 2022-01-09 Completed [facility] 00:00:00 [facility] Remdesivir 2022-01-09 Completed [facility] 00:00:00 [facility] Remdesivir 2022-01-09 Completed [facility] 00:00:00 [facility] Remdesivir 2022-01-09 Completed [facility] 00:00:00 [facility] Remdesivir 2022-01-09 Completed [facility] 00:00:00 [facility] Remdesivir 2022-01-09 Completed [facility] 00:00:00 [facility] Remdesivir 2022-01-09 Completed [facility] 00[facility]00:00 [facility] Remdesivir 2022-01-09 Completed [facility] 00:00:00 [facility] Remdesivir 2022-01-09 Completed [facility] 00:00:00 [facility] Remdesivir 2022-01-08 Completed [facility] 00:00:00 [facility] Remdesivir 2022-01-08 Completed [facility] 00[facility]00:00 [facility] Remdesivir 2022-01-08 Completed [facility] 00:00:00 [facility] Remdesivir 2022-01-08 Completed [facility] 00:00:00 [facility] Remdesivir 2022-01-08 Completed [facility] 00:00:00 [facility] Remdesivir 2022-01-08 Completed [facility] 00:00:00 [facility] Remdesivir 2022-01-08 Completed [facility] 00:00:00 [facility] Remdesivir 2022-01-08 Completed [facility] 00[facility]00:00 [facility] Remdesivir 2022-01-08 Completed [facility] 00:00:00 [facility] Remdesivir 2022-01-08 Completed [facility] 00:00:00 [facility] Remdesivir 2022-01-08 Completed [facility] 00:00:00 [facility] Remdesivir 2022-01-08 Completed [facility] 00:00:00 [facility] Remdesivir 2022-01-08 Completed [facility] 00:00:00 [facility] Remdesivir 2022-01-08 Completed [facility] 00:00:00 [facility] Remdesivir 2022-01-08 Completed [facility] 00:00:00 [facility] Remdesivir 2022-01-08 Completed [facility] 00:00:00 [facility] Remdesivir 2022-01-08 Completed [facility] 00[facility]00:00 [facility] Remdesivir 2022-01-08 Completed [facility] 00:00:00 [facility] Remdesivir 2022-01-08 Completed [facility] 00:00:00 [facility] Remdesivir 2022-01-08 Completed [facility] 00:00:00 [facility] Remdesivir 2022-01-08 Completed [facility] 00:00:00 [facility] Remdesivir 2022-01-08 Completed [facility] 00[facility]00:00 [facility] Remdesivir 2022-01-08 Completed [facility] 00:00:00 [facility] Remdesivir 2022-01-08 Completed [facility] 00:00:00 [facility] Remdesivir 2022-01-08 Completed [facility] 00[facility]00:00 [facility] Remdesivir 2022-01-08 Completed [facility] 00:00:00 [facility] Remdesivir 2022-01-08 Completed [facility] 00[facility]00:00 [facility] Remdesivir 2022-01-08 Completed [facility] 00:00:00 [facility] Remdesivir 2022-01-08 Completed [facility] 00:00:00 [facility] Remdesivir 2022-01-08 Completed [facility] 00:00:00 [facility] Remdesivir 2022-01-08 Completed [facility] 00:00:00 [facility] Remdesivir 2022-01-08 Completed [facility] 00:00:00 [facility] Remdesivir 2022-01-08 Completed [facility] 00:00:00 [facility] Remdesivir 2022-01-08 Completed [facility] 00:00:00 [facility] Remdesivir 2022-01-08 Completed [facility] 00:00:00 [facility] Remdesivir 2022-01-08 Completed [facility] 00:00:00 [facility] Remdesivir 2022-01-08 Completed [facility] 00:00:00 [facility] Remdesivir 2022-01-08 Completed [facility] 00:00:00 [facility] Remdesivir 2022-01-08 Completed [facility] 00:00:00 [facility] Remdesivir 2022-01-08 Completed [facility] 00[facility]00:00 [facility] Remdesivir 2022-01-08 Completed [facility] 00:00:00 [facility] Remdesivir 2022-01-08 Completed [facility] 00[facility]00:00 [facility] Remdesivir 2022-01-08 Completed [facility] 00:00:00 [facility] Remdesivir 2022-01-08 Completed [facility] 00:00:00 [facility] Remdesivir 2022-01-08 Completed [facility] 00[facility]00:00 [facility] Remdesivir 2022-01-08 Completed [facility] 00:00:00 [facility] Remdesivir 2022-01-08 Completed [facility] 00:00:00 [facility] Remdesivir 2022-01-08 Completed [facility] 00:00:00 [facility] Remdesivir 2022-01-08 Completed [facility] 00:00:00 [facility] Remdesivir 2022-01-08 Completed [facility] 00[facility]00:00 [facility] Remdesivir 2022-01-08 Completed [facility] 00:00:00 [facility] Remdesivir 2022-01-08 Completed [facility] 00:00:00 [facility] Remdesivir 2022-01-08 Completed [facility] 00:00:00 [facility] Remdesivir 2022-01-08 Completed [facility] 00:00:00 [facility] Remdesivir 2022-01-08 Completed [facility] 00:00:00 [facility] Remdesivir 2022-01-08 Completed [facility] 00:00:00 [facility] Remdesivir 2022-01-08 Completed [facility] 00:00:00 [facility] Remdesivir 2022-01-08 Completed [facility] 00[facility]00:00 [facility] Remdesivir 2022-01-08 Completed [facility] 00:00:00 [facility] Remdesivir 2022-01-08 Completed [facility] 00[facility]00:00 [facility] Remdesivir 2022-01-08 Completed [facility] 00:00:00 [facility] Remdesivir 2022-01-08 Completed [facility] 00:00:00 [facility] Remdesivir 2022-01-08 Completed [facility] 00:00:00 [facility] Remdesivir 2022-01-08 Completed [facility] 00:00:00 [facility] Remdesivir 2022-01-08 Completed [facility] 00[facility]00:00 [facility] Remdesivir 2022-01-08 Completed [facility] 00:00:00 [facility] Remdesivir 2022-01-08 Completed [facility] 00[facility]00:00 [facility] Remdesivir 2022-01-08 Completed [facility] 00:00:00 [facility] Remdesivir 2022-01-08 Completed [facility] 00:00:00 [facility] Remdesivir 2022-01-08 Completed [facility] 00:00:00 [facility] Remdesivir 2022-01-08 Completed [facility] 00:00:00 [facility] Remdesivir 2022-01-08 Completed [facility] 00:00:00 [facility] Remdesivir 2022-01-08 Completed [facility] 00:00:00 [facility] Remdesivir 2022-01-08 Completed [facility] 00:00:00 [facility] Remdesivir 2022-01-08 Completed [facility] 00[facility]00:00 [facility] Remdesivir 2022-01-08 Completed [facility] 00:00:00 [facility] Remdesivir 2022-01-08 Completed [facility] 00:00:00 [facility] Remdesivir 2022-01-08 Completed [facility] 00:00:00 [facility] Remdesivir 2022-01-08 Completed [facility] 00:00:00 [facility] Remdesivir 2022-01-08 Completed [facility] 00:00:00 [facility] Remdesivir 2022-01-08 Completed [facility] 00:00:00 [facility] Remdesivir 2022-01-08 Completed [facility] 00:00:00 [facility] Remdesivir 2022-01-08 Completed [facility] 00:00:00 [facility] Remdesivir 2022-01-08 Completed [facility] 00:00:00 [facility] Remdesivir 2022-01-08 Completed [facility] 00[facility]00:00 [facility] Remdesivir 2022-01-08 Completed [facility] 00:00:00 [facility] Remdesivir 2022-01-08 Completed [facility] 00:00:00 [facility] Remdesivir 2022-01-08 Completed [facility] 00:00:00 [facility] Remdesivir 2022-01-08 Completed [facility] 00:00:00 [facility] Remdesivir 2022-01-08 Completed [facility] 00[facility]00:00 [facility] Remdesivir 2022-01-08 Completed [facility] 00:00:00 [facility] Remdesivir 2022-01-08 Completed [facility] 00:00:00 [facility] Remdesivir 2022-01-08 Completed [facility] 00:00:00 [facility] Remdesivir 2022-01-08 Completed [facility] 00:00:00 [facility] Remdesivir 2022-01-08 Completed [facility] 00:00:00 [facility] Remdesivir 2022-01-08 Completed [facility] 00:00:00 [facility] Remdesivir 2022-01-08 Completed [facility] 00[facility]00:00 [facility] Remdesivir 2022-01-08 Completed [facility] 00:00:00 [facility] Remdesivir 2022-01-08 Completed [facility] 00:00:00 [facility] Remdesivir 2022-01-08 Completed [facility] 00:00:00 [facility] Remdesivir 2022-01-08 Completed [facility] 00:00:00 [facility] Remdesivir 2022-01-08 Completed [facility] 00:00:00 [facility] Remdesivir 2022-01-08 Completed [facility] 00:00:00 [facility] Remdesivir 2022-01-08 Completed [facility] 00:00:00 [facility] Remdesivir 2022-01-08 Completed [facility] 00:00:00 [facility] Remdesivir 2022-01-08 Completed [facility] 00:00:00 [facility] Remdesivir 2022-01-08 Completed [facility] 00:00:00 [facility] Remdesivir 2022-01-08 Completed [facility] 00:00:00 [facility] Remdesivir 2022-01-08 Completed [facility] 00:00:00 [facility] Remdesivir 2022-01-08 Completed [facility] 00:00:00 [facility] Remdesivir 2022-01-08 Completed [facility] 00:00:00 [facility] Remdesivir 2022-01-08 Completed [facility] 00:00:00 [facility] Remdesivir 2022-01-08 Completed [facility] 00:00:00 [facility] Remdesivir 2022-01-08 Completed [facility] 00:00:00 [facility] Remdesivir 2022-01-08 Completed [facility] 00[facility]00:00 [facility] Remdesivir 2022-01-08 Completed [facility] 00:00:00 [facility] Remdesivir 2022-01-08 Completed [facility] 00:00:00 [facility] Remdesivir 2022-01-08 Completed [facility] 00:00:00 [facility] Remdesivir 2022-01-08 Completed [facility] 00:00:00 [facility] Remdesivir 2022-01-08 Completed [facility] 00:00:00 [facility] Remdesivir 2022-01-08 Completed [facility] 00:00:00 [facility] Remdesivir 2022-01-08 Completed [facility] 00:00:00 [facility] Remdesivir 2022-01-08 Completed [facility] 00:00:00 [facility] Remdesivir 2022-01-08 Completed [facility] 00:00:00 [facility] Remdesivir 2022-01-08 Completed [facility] 00:00:00 [facility] Remdesivir 2022-01-08 Completed [facility] 00:00:00 [facility] Remdesivir 2022-01-08 Completed [facility] 00:00:00 [facility] Remdesivir 2022-01-08 Completed [facility] 00:00:00 [facility] Remdesivir 2022-01-08 Completed [facility] 00:00:00 [facility] Remdesivir 2022-01-08 Completed [facility] 00:00:00 [facility] Remdesivir 2022-01-08 Completed [facility] 00:00:00 [facility] Remdesivir 2022-01-08 Completed [facility] 00:00:00 [facility] Remdesivir 2022-01-08 Completed [facility] 00:00:00 [facility] Remdesivir 2022-01-08 Completed [facility] 00:00:00 [facility] Remdesivir 2022-01-08 Completed [facility] 00:00:00 [facility] Remdesivir 2022-01-08 Completed [facility] 00:00:00 [facility] Remdesivir 2022-01-08 Completed [facility] 00:00:00 [facility] Remdesivir 2022-01-08 Completed [facility] 00:00:00 [facility] Remdesivir 2022-01-08 Completed [facility] 00:00:00 [facility] Remdesivir 2022-01-08 Completed [facility] 00[facility]00:00 [facility] Remdesivir 2022-01-08 Completed [facility] 00:00:00 [facility] Remdesivir 2022-01-08 Completed [facility] 00[facility]00:00 [facility] Remdesivir 2022-01-08 Completed [facility] 00:00:00 [facility] Remdesivir 2022-01-08 Completed [facility] 00:00:00 [facility] Remdesivir 2022-01-08 Completed [facility] 00:00:00 [facility] Remdesivir 2022-01-08 Completed [facility] 00:00:00 [facility] Remdesivir 2022-01-08 Completed [facility] 00:00:00 [facility] Remdesivir 2022-01-08 Completed [facility] 00:00:00 [facility] Remdesivir 2022-01-08 Completed [facility] 00:00:00 [facility] Remdesivir 2022-01-08 Completed [facility] 00:00:00 [facility] Remdesivir 2022-01-08 Completed [facility] 00:00:00 [facility] Remdesivir 2022-01-08 Completed [facility] 00:00:00 [facility] Remdesivir 2022-01-08 Completed [facility] 00:00:00 [facility] Remdesivir 2022-01-08 Completed [facility] 00:00:00 [facility] Remdesivir 2022-01-08 Completed [facility] 00:00:00 [facility] Remdesivir 2022-01-08 Completed [facility] 00:00:00 [facility] Remdesivir 2022-01-08 Completed [facility] 00:00:00 [facility] Remdesivir 2022-01-08 Completed [facility] 00:00:00 [facility] Remdesivir 2022-01-08 Completed [facility] 00:00:00 [facility] Remdesivir 2022-01-08 Completed [facility] 00:00:00 [facility] Remdesivir 2022-01-08 Completed [facility] 00:00:00 [facility] Remdesivir 2022-01-08 Completed [facility] 00:00:00 [facility] Remdesivir 2022-01-08 Completed [facility] 00:00:00 [facility] Remdesivir 2022-01-08 Completed [facility] 00:00:00 [facility] Remdesivir 2022-01-08 Completed [facility] 00:00:00 [facility] Remdesivir 2022-01-08 Completed [facility] 00:00:00 [facility] Remdesivir 2022-01-08 Completed [facility] 00:00:00 [facility] Remdesivir 2022-01-08 Completed [facility] 00:00:00 [facility] Remdesivir 2022-01-08 Completed [facility] 00:00:00 [facility] Remdesivir 2022-01-08 Completed [facility] 00:00:00 [facility] Remdesivir 2022-01-08 Completed [facility] 00:00:00 [facility] Remdesivir 2022-01-08 Completed [facility] 00:00:00 [facility] Remdesivir 2022-01-08 Completed [facility] 00:00:00 [facility] Remdesivir 2022-01-08 Completed [facility] 00:00:00 [facility] Remdesivir 2022-01-08 Completed [facility] 00:00:00 [facility] Remdesivir 2022-01-08 Completed [facility] 00:00:00 [facility] SARS-COV-2 COVID-19 2021-04-26 Completed [facility] MODERNA 0.25ML 00:00:00 [facility] SARS-COV-2 COVID-19 2021-04-26 Completed [facility] MODERNA 0.25ML 00:00:00 [facility] SARS-COV-2 COVID-19 2021-04-26 Completed [facility] MODERNA 0.25ML 00:00:00 [facility] SARS-COV-2 COVID-19 2021-04-26 Completed [facility] MODERNA 0.25ML 00:00:00 [facility] SARS-COV-2 COVID-19 2021-04-26 Completed [facility] MODERNA 0.25ML 00:00:00 [facility] SARS-COV-2 COVID-19 2021-04-26 Completed [facility] MODERNA 0.25ML 00:00:00 [facility] SARS-COV-2 COVID-19 2021-04-26 Completed [facility] MODERNA 0.25ML 00:00:00 [facility] SARS-COV-2 COVID-19 2021-04-26 Completed [facility] MODERNA 0.25ML 00:00:00 [facility] SARS-COV-2 COVID-19 2021-04-26 Completed [facility] MODERNA 0.25ML 00:00:00 [facility] SARS-COV-2 COVID-19 2021-04-26 Completed [facility] MODERNA 0.25ML 00:00:00 [facility] SARS-COV-2 COVID-19 2021-04-26 Completed [facility] MODERNA 0.25ML 00:00:00 [facility] SARS-COV-2 COVID-19 2021-04-26 Completed [facility] MODERNA 0.25ML 00:00:00 [facility] SARS-COV-2 COVID-19 2021-04-26 Completed [facility] MODERNA 0.25ML 00:00:00 [facility] SARS-COV-2 COVID-19 2021-04-26 Completed [facility] MODERNA 0.25ML 00:00:00 [facility] SARS-COV-2 COVID-19 2021-04-26 Completed [facility] MODERNA 0.25ML 00:00:00 [facility] SARS-COV-2 COVID-19 2021-04-26 Completed [facility] MODERNA 0.25ML 00:00:00 [facility] SARS-COV-2 COVID-19 2021-04-26 Completed [facility] MODERNA 0.25ML 00:00:00 [facility] SARS-COV-2 COVID-19 2021-04-26 Completed [facility] MODERNA 0.25ML 00:00:00 [facility] SARS-COV-2 COVID-19 2021-04-26 Completed [facility] MODERNA 0.25ML 00:00:00 [facility] SARS-COV-2 COVID-19 2021-04-26 Completed [facility] MODERNA 0.25ML 00:00:00 [facility] SARS-COV-2 COVID-19 2021-04-26 Completed [facility] MODERNA 0.25ML 00:00:00 [facility] SARS-COV-2 COVID-19 2021-04-26 Completed [facility]ER[facility] 0.25ML 00:00:00 [facility] [facility] SARS-COV-2 COVID-19 2021-04-26 Completed [facility] MODERNA 0.25ML 00:00:00 [place] [facility] SARS-COV-2 COVID-19 2021-04-26 Completed [facility] MODER[facility] 0.25ML 00:00:00 [place] [facility] SARS-COV-2 COVID-19 2021-04-26 Completed [facility] MODER[facility] 0.25ML 00:00:00 [place] [facility] SARS-COV-2 COVID-19 2021-04-26 Completed [facility] MODER[facility] 0.25ML 00:00:00 [place] [facility] SARS-COV-2 COVID-19 2021-04-26 Completed [facility] MODER[facility] 0.25ML 00:00:00 [place] [facility]ACC[facility] SARS-COV-2 COVID-19 2021-04-26 Completed [facility] MODER[facility] 0.25ML 00:00:00 [place] [facility]ACC[facility] SARS-COV-2 COVID-19 2021-04-26 Completed [facility] MODERNA 0.25ML 00:00:00 [place] [facility] SARS-COV-2 COVID-19 2021-04-26 Completed [facility] MODER[facility] 0.25ML 00:00:00 [place] [facility]ACC[facility] SARS-COV-2 COVID-19 2021-04-26 Completed [facility] MODERNA 0.25ML 00:00:00 [place] [facility]ACC[facility] SARS-COV-2 COVID-19 2021-04-26 Completed [facility] MODERNA 0.25ML 00:00:00 [place] [facility]ACC[facility] SARS-COV-2 COVID-19 2021-04-26 Completed [facility] MODERNA 0.25ML 00:00:00 [place] [facility]ACC[facility] SARS-COV-2 COVID-19 2021-04-26 Completed [facility] MODERNA 0.25ML 00:00:00 [place] [facility]ACC[facility] SARS-COV-2 COVID-19 2021-04-26 Completed [facility] MODER[facility] 0.25ML 00:00:00 [place] [facility]ACC[facility] SARS-COV-2 COVID-19 2021-04-26 Completed [facility] MODERNA 0.25ML 00:00:00 [place] [facility]ACC[facility] SARS-COV-2 COVID-19 2021-04-26 Completed [facility] MODERNA 0.25ML 00:00:00 [place] [facility]ACC[facility] SARS-COV-2 COVID-19 2021-04-26 Completed [facility] MODER[facility] 0.25ML 00:00:00 [place] [facility]ACC[facility] SARS-COV-2 COVID-19 2021-04-26 Completed [facility] MODER[facility] 0.25ML 00:00:00 [place] [facility]ACC[facility] SARS-COV-2 COVID-19 2021-04-26 Completed [facility] MODERNA 0.25ML 00:00:00 [place] [facility]ACC[facility] SARS-COV-2 COVID-19 2021-04-26 Completed [facility] MODERNA 0.25ML 00:00:00 [place] [facility]ACC[facility] SARS-COV-2 COVID-19 2021-04-26 Completed [facility] MODERNA 0.25ML 00:00:00 [place] [facility]ACC[facility] SARS-COV-2 COVID-19 2021-04-26 Completed [facility] MODERNA 0.25ML 00:00:00 [place] [facility]ACC[facility] SARS-COV-2 COVID-19 2021-04-26 Completed [facility] MODER[facility] 0.25ML 00:00:00 [place] [facility]ACC[facility] SARS-COV-2 COVID-19 2021-04-26 Completed [facility] MODERNA 0.25ML 00:00:00 [place] [facility]ACC[facility] SARS-COV-2 COVID-19 2021-04-26 Completed [facility] MODERNA 0.25ML 00:00:00 [place] [facility]ACC[facility] SARS-COV-2 COVID-19 2021-04-26 Completed [facility] MODER[facility] 0.25ML 00:00:00 [place] [facility]ACC[facility] SARS-COV-2 COVID-19 2021-04-26 Completed [facility] MODERNA 0.25ML 00:00:00 [place] [facility]ACC[facility] SARS-COV-2 COVID-19 2021-04-26 Completed [facility] MODERNA 0.25ML 00:00:00 [place] [facility]ACC[facility] SARS-COV-2 COVID-19 2021-04-26 Completed [facility] MODER[facility] 0.25ML 00:00:00 [place] [facility]ACC[facility] SARS-COV-2 COVID-19 2021-04-26 Completed [facility] MODERNA 0.25ML 00:00:00 [place] [facility]ACC[facility] SARS-COV-2 COVID-19 2021-04-26 Completed [facility] MODERNA 0.25ML 00:00:00 [place] [facility]ACC[facility] SARS-COV-2 COVID-19 2021-04-26 Completed [facility] MODERNA 0.25ML 00:00:00 [place] [facility]ACC[facility] SARS-COV-2 COVID-19 2021-04-26 Completed [facility] MODERNA 0.25ML 00:00:00 [place] [facility]ACC[facility] SARS-COV-2 COVID-19 2021-04-26 Completed [facility] MODERNA 0.25ML 00:00:00 [place] [facility]ACC[facility] SARS-COV-2 COVID-19 2021-04-26 Completed [facility] MODERNA 0.25ML 00:00:00 [place] [facility]ACC[facility] SARS-COV-2 COVID-19 2021-04-26 Completed [facility] MODERNA 0.25ML 00:00:00 [place] [facility]ACC[facility] SARS-COV-2 COVID-19 2021-04-26 Completed [facility] MODER[facility] 0.25ML 00:00:00 [place] [facility]ACC[facility] SARS-COV-2 COVID-19 2021-04-26 Completed [facility] MODERNA 0.25ML 00:00:00 [place] [facility]ACC[facility] SARS-COV-2 COVID-19 2021-04-26 Completed [facility] MODERNA 0.25ML 00:00:00 [place] [facility]ACC[facility] SARS-COV-2 COVID-19 2021-04-26 Completed [facility] MODERNA 0.25ML 00:00:00 [place] [facility]ACC[facility] SARS-COV-2 COVID-19 2021-04-26 Completed [facility] MODERNA 0.25ML 00:00:00 [place] [facility]ACC[facility] SARS-COV-2 COVID-19 2021-04-26 Completed [facility] MODER[facility] 0.25ML 00:00:00 [place] [facility]ACC[facility] SARS-COV-2 COVID-19 2021-04-26 Completed [facility] MODERNA 0.25ML 00:00:00 [place] [facility]ACC[facility] SARS-COV-2 COVID-19 2021-04-26 Completed [facility] MODERNA 0.25ML 00:00:00 [place] [facility]ACC[facility] SARS-COV-2 COVID-19 2021-04-26 Completed [facility] MODERNA 0.25ML 00:00:00 [place] [facility] SARS-COV-2 COVID-19 2021-04-26 Completed [facility] MODERNA 0.25ML 00:00:00 [place] [facility]ACC[facility] SARS-COV-2 COVID-19 2021-04-26 Completed [facility] MODERNA 0.25ML 00:00:00 [place] [facility]ACC[facility] SARS-COV-2 COVID-19 2021-04-26 Completed [facility] MODER[facility] 0.25ML 00:00:00 [place] [facility]ACC[facility] SARS-COV-2 COVID-19 2021-04-26 Completed [facility] MODER[facility] 0.25ML 00:00:00 [place] [facility]ACC[facility] SARS-COV-2 COVID-19 2021-04-26 Completed [facility] MODERNA 0.25ML 00:00:00 [place] [facility]ACC[facility] SARS-COV-2 COVID-19 2021-04-26 Completed [facility] MODER[facility] 0.25ML 00:00:00 [place] [facility]ACC[facility] SARS-COV-2 COVID-19 2021-04-26 Completed [facility] MODER[facility] 0.25ML 00:00:00 [place] [facility]ACC[facility] SARS-COV-2 COVID-19 2021-04-26 Completed [facility] MODERNA 0.25ML 00:00:00 [place] [facility]ACC[facility] SARS-COV-2 COVID-19 2021-04-26 Completed [facility] MODER[facility] 0.25ML 00:00:00 [place] [facility]ACC[facility] SARS-COV-2 COVID-19 2021-04-26 Completed [facility] MODER[facility] 0.25ML 00:00:00 [place] [facility]ACC[facility] SARS-COV-2 COVID-19 2021-04-26 Completed [facility] MODER[facility] 0.25ML 00:00:00 [place] [facility]ACC[facility] SARS-COV-2 COVID-19 2021-04-26 Completed [facility] MODER[facility] 0.25ML 00:00:00 [place] [facility]ACC[facility] SARS-COV-2 COVID-19 2021-04-26 Completed [facility] MODER[facility] 0.25ML 00:00:00 [place] [facility]ACC[facility] SARS-COV-2 COVID-19 2021-04-26 Completed [facility] MODERNA 0.25ML 00:00:00 [place] [facility]ACC[facility] SARS-COV-2 COVID-19 2021-04-26 Completed [facility] MODER[facility] 0.25ML 00:00:00 [place] [facility]ACC[facility] SARS-COV-2 COVID-19 2021-04-26 Completed [facility] MODERNA 0.25ML 00:00:00 [place] [facility]ACC[facility] SARS-COV-2 COVID-19 2021-04-26 Completed [facility] MODERNA 0.25ML 00:00:00 [place] [facility]ACC[facility] SARS-COV-2 COVID-19 2021-04-26 Completed [facility] MODERNA 0.25ML 00:00:00 [place] [facility]ACC[facility] SARS-COV-2 COVID-19 2021-04-26 Completed [facility] MODERNA 0.25ML 00:00:00 [place] [facility]ACC[facility] SARS-COV-2 COVID-19 2021-04-26 Completed [facility] MODERNA 0.25ML 00:00:00 [place] [facility]ACC[facility] SARS-COV-2 COVID-19 2021-04-26 Completed [facility] MODERNA 0.25ML 00:00:00 [place] [facility]ACC[facility] SARS-COV-2 COVID-19 2021-04-26 Completed [facility] MODERNA 0.25ML 00:00:00 [place] [facility]ACC[facility] SARS-COV-2 COVID-19 2021-04-26 Completed [facility] MODERNA 0.25ML 00:00:00 [place] [facility]ACC[facility] SARS-COV-2 COVID-19 2021-04-26 Completed [facility] MODERNA 0.25ML 00:00:00 [place] [facility]ACC[facility] SARS-COV-2 COVID-19 2021-04-26 Completed [facility] MODERNA 0.25ML 00:00:00 [place] [facility]ACC[facility] SARS-COV-2 COVID-19 2021-04-26 Completed [facility] MODERNA 0.25ML 00:00:00 [place] [facility]ACCINE [facility] SARS-COV-2 COVID-19 2021-04-26 Completed [facility] MODERNA 0.25ML 00:00:00 [place] [facility]ACC[facility] SARS-COV-2 COVID-19 2021-04-26 Completed [facility] MODERNA 0.25ML 00:00:00 [place] [facility]ACC[facility] SARS-COV-2 COVID-19 2021-04-26 Completed [facility] MODERNA 0.25ML 00:00:00 [place] [facility]ACC[facility] SARS-COV-2 COVID-19 2021-04-26 Completed [facility] MODERNA 0.25ML 00:00:00 [place] [facility]ACCINE [facility] SARS-COV-2 COVID-19 2021-04-26 Completed [facility] MODERNA 0.25ML 00:00:00 [place] [facility]ACCINE [facility] SARS-COV-2 COVID-19 2021-04-26 Completed [facility] MODERNA 0.25ML 00:00:00 [place] [facility]ACCINE [facility] SARS-COV-2 COVID-19 2021-04-26 Completed [facility] MODERNA 0.25ML 00:00:00 [place] [facility]ACCINE [facility] SARS-COV-2 COVID-19 2021-04-26 Completed [facility] MODERNA 0.25ML 00:00:00 [place] [facility]ACC[facility] SARS-COV-2 COVID-19 2021-04-26 Completed [facility] MODERNA 0.25ML 00:00:00 [place] [facility]ACC[facility] SARS-COV-2 COVID-19 2021-04-26 Completed [facility] MODERNA 0.25ML 00:00:00 [place] [facility]ACCINE [facility] SARS-COV-2 COVID-19 2021-04-26 Completed [facility] MODERNA 0.25ML 00:00:00 [place] [facility]ACCINE [facility] SARS-COV-2 COVID-19 2021-04-26 Completed [facility] MODERNA 0.25ML 00:00:00 [place] [facility]ACC[facility] SARS-COV-2 COVID-19 2021-04-26 Completed [facility] MODERNA 0.25ML 00:00:00 [place] [facility]ACCINE [facility] SARS-COV-2 COVID-19 2021-04-26 Completed [facility] MODERNA 0.25ML 00:00:00 [place] [facility]ACC[facility] SARS-COV-2 COVID-19 2021-04-26 Completed [facility] MODERNA 0.25ML 00:00:00 [place] [facility]ACC[facility] SARS-COV-2 COVID-19 2021-04-26 Completed [facility] MODERNA 0.25ML 00:00:00 [place] [facility]ACC[facility] SARS-COV-2 COVID-19 2021-04-26 Completed [facility] MODERNA 0.25ML 00:00:00 [place] [facility]ACC[facility] SARS-COV-2 COVID-19 2021-04-26 Completed [facility] MODERNA 0.25ML 00:00:00 [place] [facility]ACC[facility] SARS-COV-2 COVID-19 2021-04-26 Completed [facility] MODERNA 0.25ML 00:00:00 [place] [facility]ACC[facility] SARS-COV-2 COVID-19 2021-04-26 Completed [facility] MODERNA 0.25ML 00:00:00 [place] [facility]ACC[facility] SARS-COV-2 COVID-19 2021-04-26 Completed [facility] MODERNA 0.25ML 00:00:00 [place] [facility]ACCINE [facility] SARS-COV-2 COVID-19 2021-04-26 Completed [facility] MODERNA 0.25ML 00:00:00 [place] [facility]ACC[facility] SARS-COV-2 COVID-19 2021-04-26 Completed [facility] MODERNA 0.25ML 00:00:00 [place] [facility]ACC[facility] SARS-COV-2 COVID-19 2021-04-26 Completed [facility] MODERNA 0.25ML 00:00:00 [place] [facility]ACC[facility] SARS-COV-2 COVID-19 2021-04-26 Completed [facility] MODERNA 0.25ML 00:00:00 [place] [facility]ACCINE [facility] SARS-COV-2 COVID-19 2021-04-26 Completed [facility] MODERNA 0.25ML 00:00:00 [place] [facility]ACCINE [facility] SARS-COV-2 COVID-19 2021-04-26 Completed [facility] MODERNA 0.25ML 00:00:00 [place] [facility]ACCINE [facility] SARS-COV-2 COVID-19 2021-04-26 Completed [facility] MODERNA 0.25ML 00:00:00 [place] [facility]ACC[facility] SARS-COV-2 COVID-19 2021-04-26 Completed [facility] MODERNA 0.25ML 00:00:00 [place] [facility]ACCINE [facility] SARS-COV-2 COVID-19 2021-04-26 Completed [facility] MODERNA 0.25ML 00:00:00 [place] [facility]ACCINE [facility] SARS-COV-2 COVID-19 2021-04-26 Completed [facility] MODERNA 0.25ML 00:00:00 [place] [facility]ACC[facility] SARS-COV-2 COVID-19 2021-04-26 Completed [facility] MODERNA 0.25ML 00:00:00 [place] [facility]ACC[facility] SARS-COV-2 COVID-19 2021-04-26 Completed [facility] MODERNA 0.25ML 00:00:00 [place] [facility]ACCINE [facility] SARS-COV-2 COVID-19 2021-04-26 Completed [facility] MODERNA 0.25ML 00:00:00 [place] [facility]ACC[facility] SARS-COV-2 COVID-19 2021-04-26 Completed [facility] MODERNA 0.25ML 00:00:00 [place] [facility]ACCINE [facility] SARS-COV-2 COVID-19 2021-04-26 Completed [facility] MODERNA 0.25ML 00:00:00 [place] [facility]ACCINE [facility] SARS-COV-2 COVID-19 2021-04-26 Completed [facility] MODERNA 0.25ML 00:00:00 [place] [facility]ACCINE [facility] SARS-COV-2 COVID-19 2021-04-26 Completed [facility] MODERNA 0.25ML 00:00:00 [place] [facility]ACCINE [facility] SARS-COV-2 COVID-19 2021-04-26 Completed [facility] MODERNA 0.25ML 00:00:00 [place] [facility]ACCINE [facility] SARS-COV-2 COVID-19 2021-04-26 Completed [facility] MODERNA 0.25ML 00:00:00 [place] [facility]ACCINE [facility] SARS-COV-2 COVID-19 2021-04-26 Completed [facility] MODERNA 0.25ML 00:00:00 [place] [facility]ACCINE [facility] SARS-COV-2 COVID-19 2021-04-26 Completed [facility] MODERNA 0.25ML 00:00:00 [place] [facility]ACCINE [facility] SARS-COV-2 COVID-19 2021-04-26 Completed [facility] MODERNA 0.25ML 00:00:00 [place] [facility]ACCINE [facility] SARS-COV-2 COVID-19 2021-04-26 Completed [facility] MODERNA 0.25ML 00:00:00 [place] [facility]ACCINE [facility] SARS-COV-2 COVID-19 2021-04-26 Completed [facility] MODERNA 0.25ML 00:00:00 [place] [facility]ACCINE [facility] SARS-COV-2 COVID-19 2021-04-26 Completed [facility] MODERNA 0.25ML 00:00:00 [place] [facility]ACCINE [facility] SARS-COV-2 COVID-19 2021-04-26 Completed [facility] MODERNA 0.25ML 00:00:00 [place] [facility]ACCINE [facility] SARS-COV-2 COVID-19 2021-04-26 Completed [facility] MODERNA 0.25ML 00:00:00 [place] [facility]ACCINE [facility] SARS-COV-2 COVID-19 2021-04-26 Completed [facility] MODERNA 0.25ML 00:00:00 [place] [facility]ACCINE [facility] SARS-COV-2 COVID-19 2021-04-26 Completed [facility] MODERNA 0.25ML 00:00:00 [place] [facility]ACCINE [facility] SARS-COV-2 COVID-19 2021-04-26 Completed [facility] MODERNA 0.25ML 00:00:00 [place] [facility]ACCINE [facility] SARS-COV-2 COVID-19 2021-04-26 Completed [facility] MODERNA 0.25ML 00:00:00 [place] [facility]ACC[facility] SARS-COV-2 COVID-19 2021-04-26 Completed [facility] MODERNA 0.25ML 00:00:00 [place] [facility]ACC[facility] SARS-COV-2 COVID-19 2021-04-26 Completed [facility] MODERNA 0.25ML 00:00:00 [place] [facility]ACC[facility] SARS-COV-2 COVID-19 2021-04-26 Completed [facility] MODERNA 0.25ML 00:00:00 [place] [facility]ACC[facility] SARS-COV-2 COVID-19 2021-04-26 Completed [facility] MODERNA 0.25ML 00:00:00 [place] [facility]ACC[facility] SARS-COV-2 COVID-19 2021-04-26 Completed [facility] MODERNA 0.25ML 00:00:00 [place] [facility]ACC[facility] SARS-COV-2 COVID-19 2021-04-26 Completed [facility] MODERNA 0.25ML 00:00:00 [place] [facility]ACC[facility] SARS-COV-2 COVID-19 2021-04-26 Completed [facility] MODERNA 0.25ML 00:00:00 [place] [facility]ACC[facility] SARS-COV-2 COVID-19 2021-04-26 Completed [facility] MODERNA 0.25ML 00:00:00 [place] [facility]ACC[facility] SARS-COV-2 COVID-19 2021-04-26 Completed [facility] MODERNA 0.25ML 00:00:00 [place] [facility]ACC[facility] SARS-COV-2 COVID-19 2021-04-26 Completed [facility] MODERNA 0.25ML 00:00:00 [place] [facility]ACC[facility] SARS-COV-2 COVID-19 2021-04-26 Completed [facility] MODERNA 0.25ML 00:00:00 [place] [facility]ACC[facility] SARS-COV-2 COVID-19 2021-04-26 Completed [facility] MODERNA 0.25ML 00:00:00 [place] [facility]ACC[facility] SARS-COV-2 COVID-19 2021-04-26 Completed [facility] MODERNA 0.25ML 00:00:00 [place] [facility]ACC[facility] SARS-COV-2 COVID-19 2021-04-26 Completed [facility] MODERNA 0.25ML 00:00:00 [place] [facility]ACC[facility] SARS-COV-2 COVID-19 2021-04-26 Completed [facility] MODERNA 0.25ML 00:00:00 [place] [facility]ACC[facility] SARS-COV-2 COVID-19 2021-04-26 Completed [facility] MODERNA 0.25ML 00:00:00 [place] [facility]ACC[facility] SARS-COV-2 COVID-19 2021-04-26 Completed [facility] MODERNA 0.25ML 00:00:00 [place] [facility]ACC[facility] SARS-COV-2 COVID-19 2021-04-26 Completed [facility] MODERNA 0.25ML 00:00:00 [place] [facility]ACC[facility] SARS-COV-2 COVID-19 2021-04-26 Completed [facility] MODERNA 0.25ML 00:00:00 [place] [facility]ACC[facility] SARS-COV-2 COVID-19 2021-04-26 Completed [facility] MODERNA 0.25ML 00:00:00 [place] [facility]ACC[facility] SARS-COV-2 COVID-19 2021-04-26 Completed [facility] MODERNA 0.25ML 00:00:00 [place] [facility]ACC[facility] SARS-COV-2 COVID-19 2021-04-26 Completed [facility] MODERNA 0.25ML 00:00:00 [place] [facility]ACC[facility] SARS-COV-2 COVID-19 2021-04-26 Completed [facility] MODERNA 0.25ML 00:00:00 [place] [facility]ACC[facility] SARS-COV-2 COVID-19 2021-04-26 Completed [facility] MODERNA 0.25ML 00:00:00 [place] [facility]ACC[facility] SARS-COV-2 COVID-19 2021-04-26 Completed [facility] MODERNA 0.25ML 00:00:00 [place] [facility]ACC[facility] SARS-COV-2 COVID-19 2021-04-26 Completed [facility] MODERNA 0.25ML 00:00:00 [place] [facility]ACC[facility] SARS-COV-2 COVID-19 2021-04-26 Completed [facility] MODERNA 0.25ML 00:00:00 [place] [facility]ACC[facility] SARS-COV-2 COVID-19 2021-04-26 Completed [facility] MODERNA 0.25ML 00:00:00 [place] [facility]ACC[facility] SARS-COV-2 COVID-19 2021-04-26 Completed [facility] MODERNA 0.25ML 00:00:00 [place] [facility]ACC[facility] SARS-COV-2 COVID-19 2021-04-26 Completed [facility] MODERNA 0.25ML 00:00:00 [place] [facility]ACC[facility] SARS-COV-2 COVID-19 2021-04-26 Completed [facility] MODERNA 0.25ML 00:00:00 [place] [facility]ACC[facility] SARS-COV-2 COVID-19 2021-04-26 Completed [facility] MODERNA 0.25ML 00:00:00 [place] [facility] SARS-COV-2 COVID-19 2020-07-19 Completed [facility] 12+ YRS 00:00:00 [place] [facility] SARS-COV-2 COVID-19 2020-07-19 Completed [facility] 12+ YRS 00:00:00 [place] [facility] SARS-COV-2 COVID-19 2020-07-19 Completed [facility]ERNA 12+ YRS 00:00:00 [place] [facility] SARS-COV-2 COVID-19 2020-07-19 Completed [facility]ERNA 12+ YRS 00:00:00 [place] [facility] SARS-COV-2 COVID-19 2020-07-19 Completed [facility]ERNA 12+ YRS 00:00:00 [place] [facility] SARS-COV-2 COVID-19 2020-07-19 Completed [facility]ERNA 12+ YRS 00:00:00 [place] [facility] SARS-COV-2 COVID-19 2020-07-19 Completed [facility]ERNA 12+ YRS 00:00:00 [place] [facility] SARS-COV-2 COVID-19 2020-07-19 Completed [facility]ERNA 12+ YRS 00:00:00 [place] [facility] SARS-COV-2 COVID-19 2020-07-19 Completed [facility]ERNA 12+ YRS 00:00:00 [place] [facility] SARS-COV-2 COVID-19 2020-07-19 Completed [facility]ERNA 12+ YRS 00:00:00 [place] [facility] SARS-COV-2 COVID-19 2020-07-19 Completed [facility]ERNA 12+ YRS 00:00:00 [place] [facility] SARS-COV-2 COVID-19 2020-07-19 Completed [facility]ERNA 12+ YRS 00:00:00 [place] [facility] SARS-COV-2 COVID-19 2020-07-19 Completed [facility]ERNA 12+ YRS 00:00:00 [place] [facility] SARS-COV-2 COVID-19 2020-07-19 Completed [facility] MODERNA 12+ YRS 00:00:00 [place] [facility] SARS-COV-2 COVID-19 2020-07-19 Completed [facility]ERNA 12+ YRS 00:00:00 [place] [facility] SARS-COV-2 COVID-19 2020-07-19 Completed [facility]ERNA 12+ YRS 00:00:00 [place] [facility] SARS-COV-2 COVID-19 2020-07-19 Completed [facility]ERNA 12+ YRS 00:00:00 [place] [facility] SARS-COV-2 COVID-19 2020-07-19 Completed [facility]ERNA 12+ YRS 00:00:00 [place] [facility] SARS-COV-2 COVID-19 2020-07-19 Completed [facility]ERNA 12+ YRS 00:00:00 [place] [facility] SARS-COV-2 COVID-19 2020-07-19 Completed [facility]ERNA 12+ YRS 00:00:00 [place] [facility] SARS-COV-2 COVID-19 2020-07-19 Completed [facility]ERNA 12+ YRS 00:00:00 [place] [facility] SARS-COV-2 COVID-19 2020-07-19 Completed [facility]ERNA 12+ YRS 00:00:00 [place] [facility] SARS-COV-2 COVID-19 2020-07-19 Completed [facility]ERNA 12+ YRS 00:00:00 [place] [facility] SARS-COV-2 COVID-19 2020-07-19 Completed [facility]ERNA 12+ YRS 00:00:00 [place] [facility] SARS-COV-2 COVID-19 2020-07-19 Completed [facility]ERNA 12+ YRS 00:00:00 [place] [facility] SARS-COV-2 COVID-19 2020-07-19 Completed [facility]ERNA 12+ YRS 00:00:00 [place] [facility] SARS-COV-2 COVID-19 2020-07-19 Completed [facility]ERNA 12+ YRS 00:00:00 [place] [facility] SARS-COV-2 COVID-19 2020-07-19 Completed [facility]ERNA 12+ YRS 00:00:00 [place] [facility] SARS-COV-2 COVID-19 2020-07-19 Completed [facility]ERNA 12+ YRS 00:00:00 [place] [facility] SARS-COV-2 COVID-19 2020-07-19 Completed [facility]ERNA 12+ YRS 00:00:00 [place] [facility] SARS-COV-2 COVID-19 2020-07-19 Completed [facility]ERNA 12+ YRS 00:00:00 [place] [facility] SARS-COV-2 COVID-19 2020-07-19 Completed [facility] 12+ YRS 00:00:00 [place] [facility] SARS-COV-2 COVID-19 2020-07-19 Completed [facility] 12+ YRS 00:00:00 [place] [facility] SARS-COV-2 COVID-19 2020-07-19 Completed [facility] 12+ YRS 00:00:00 [place] [facility] SARS-COV-2 COVID-19 2020-07-19 Completed [facility] 12+ YRS 00:00:00 [place] [facility] SARS-COV-2 COVID-19 2020-07-19 Completed [facility] 12+ YRS 00:00:00 [place] [facility] SARS-COV-2 COVID-19 2020-07-19 Completed [facility] 12+ YRS 00:00:00 [place] [facility] SARS-COV-2 COVID-19 2020-07-19 Completed [facility] 12+ YRS 00:00:00 [place] [facility] SARS-COV-2 COVID-19 2020-07-19 Completed [facility] 12+ YRS 00:00:00 [place] [facility] SARS-COV-2 COVID-19 2020-07-19 Completed [facility] 12+ YRS 00:00:00 [place] [facility] SARS-COV-2 COVID-19 2020-07-19 Completed [facility] 12+ YRS 00:00:00 [place] [facility] SARS-COV-2 COVID-19 2020-07-19 Completed [facility] 12+ YRS 00:00:00 [place] [facility] SARS-COV-2 COVID-19 2020-07-19 Completed [facility] 12+ YRS 00:00:00 [place] [facility] SARS-COV-2 COVID-19 2020-07-19 Completed [facility] 12+ YRS 00:00:00 [place] [facility] SARS-COV-2 COVID-19 2020-07-19 Completed [facility] 12+ YRS 00:00:00 [place] [facility] SARS-COV-2 COVID-19 2020-07-19 Completed [facility] 12+ YRS 00:00:00 [place] [facility] SARS-COV-2 COVID-19 2020-07-19 Completed [facility] 12+ YRS 00:00:00 [place] [facility] SARS-COV-2 COVID-19 2020-07-19 Completed [facility] 12+ YRS 00:00:00 [place] [facility] SARS-COV-2 COVID-19 2020-07-19 Completed [facility] 12+ YRS 00:00:00 [place] [facility] SARS-COV-2 COVID-19 2020-07-19 Completed [facility] [facility] 12[facility] YRS 00:00:00 [facility] SARS-COV-2 COVID-19 2020-07-19 Completed [facility] 12+ YRS 00:00:00 [facility] SARS-COV-2 COVID-19 2020-07-19 Completed [facility] 12+ YRS 00:00:00 [place] [facility] SARS-COV-2 COVID-19 2020-07-19 Completed [facility] 12+ YRS 00:00:00 [place] [facility] SARS-COV-2 COVID-19 2020-07-19 Completed [facility] 12+ YRS 00:00:00 [place] [facility] SARS-COV-2 COVID-19 2020-07-19 Completed [facility] 12+ YRS 00:00:00 [place] [facility] SARS-COV-2 COVID-19 2020-07-19 Completed [facility] 12+ YRS 00:00:00 [place] [facility] SARS-COV-2 COVID-19 2020-07-19 Completed [facility] 12+ YRS 00:00:00 [place] [facility] SARS-COV-2 COVID-19 2020-07-19 Completed [facility] 12+ YRS 00:00:00 [place] [facility] SARS-COV-2 COVID-19 2020-07-19 Completed [facility] 12+ YRS 00:00:00 [place] [facility] SARS-COV-2 COVID-19 2020-07-19 Completed [facility] 12+ YRS 00:00:00 [place] [facility] SARS-COV-2 COVID-19 2020-07-19 Completed [facility] 12+ YRS 00:00:00 [place] [facility] SARS-COV-2 COVID-19 2020-07-19 Completed [facility] 12+ YRS 00:00:00 [place] [facility] SARS-COV-2 COVID-19 2020-07-19 Completed [facility] 12+ YRS 00:00:00 [place] [facility] SARS-COV-2 COVID-19 2020-07-19 Completed [facility] 12+ YRS 00:00:00 [place] [facility] SARS-COV-2 COVID-19 2020-07-19 Completed [facility] 12+ YRS 00:00:00 [place] [facility] SARS-COV-2 COVID-19 2020-07-19 Completed [facility] 12+ YRS 00:00:00 [place] [facility] SARS-COV-2 COVID-19 2020-07-19 Completed [facility] 12+ YRS 00:00:00 [place] [facility] SARS-COV-2 COVID-19 2020-07-19 Completed [facility] 12+ YRS 00:00:00 [place] [facility] SARS-COV-2 COVID-19 2020-07-19 Completed [facility] 12+ YRS 00:00:00 [place] [facility] SARS-COV-2 COVID-19 2020-07-19 Completed [facility] 12+ YRS 00:00:00 [place] [facility] SARS-COV-2 COVID-19 2020-07-19 Completed [facility] 12+ YRS 00:00:00 [place] [facility] SARS-COV-2 COVID-19 2020-07-19 Completed [facility] 12+ YRS 00:00:00 [place] [facility] SARS-COV-2 COVID-19 2020-07-19 Completed [facility] 12+ YRS 00:00:00 [place] [facility] SARS-COV-2 COVID-19 2020-07-19 Completed [facility] 12+ YRS 00:00:00 [place] [facility] SARS-COV-2 COVID-19 2020-07-19 Completed [facility] 12+ YRS 00:00:00 [place] [facility] SARS-COV-2 COVID-19 2020-07-19 Completed [facility] 12+ YRS 00:00:00 [place] [facility] SARS-COV-2 COVID-19 2020-07-19 Completed [facility] 12+ YRS 00:00:00 [place] [facility] SARS-COV-2 COVID-19 2020-07-19 Completed [facility] 12+ YRS 00:00:00 [place] [facility] SARS-COV-2 COVID-19 2020-07-19 Completed [facility] 12+ YRS 00:00:00 [place] [facility] SARS-COV-2 COVID-19 2020-07-19 Completed [facility] 12+ YRS 00:00:00 [place] [facility] SARS-COV-2 COVID-19 2020-07-19 Completed [facility] 12+ YRS 00:00:00 [place] [facility] SARS-COV-2 COVID-19 2020-07-19 Completed [facility] 12+ YRS 00:00:00 [place] [facility] SARS-COV-2 COVID-19 2020-07-19 Completed [facility] 12+ YRS 00:00:00 [place] [facility] SARS-COV-2 COVID-19 2020-07-19 Completed [facility] 12+ YRS 00:00:00 [place] [facility] SARS-COV-2 COVID-19 2020-07-19 Completed [facility] 12+ YRS 00:00:00 [place] [facility] SARS-COV-2 COVID-19 2020-07-19 Completed [facility] 12+ YRS 00:00:00 [place] [facility] SARS-COV-2 COVID-19 2020-07-19 Completed [facility] 12+ YRS 00:00:00 [place] [facility] SARS-COV-2 COVID-19 2020-07-19 Completed [facility] 12+ YRS 00:00:00 [place] [facility] SARS-COV-2 COVID-19 2020-07-19 Completed [facility] 12+ YRS 00:00:00 [place] [facility] SARS-COV-2 COVID-19 2020-07-19 Completed [facility] 12+ YRS 00:00:00 [place] [facility] SARS-COV-2 COVID-19 2020-07-19 Completed [facility] 12+ YRS 00:00:00 [place] [facility] SARS-COV-2 COVID-19 2020-07-19 Completed [facility] 12+ YRS 00:00:00 [place] [facility] SARS-COV-2 COVID-19 2020-07-19 Completed [facility] 12+ YRS 00:00:00 [place] [facility] SARS-COV-2 COVID-19 2020-07-19 Completed [facility] 12+ YRS 00:00:00 [place] [facility] SARS-COV-2 COVID-19 2020-07-19 Completed [facility] 12+ YRS 00:00:00 [place] [facility] SARS-COV-2 COVID-19 2020-07-19 Completed [facility] 12+ YRS 00:00:00 [place] [facility] SARS-COV-2 COVID-19 2020-07-19 Completed [facility] 12+ YRS 00:00:00 [place] [facility] SARS-COV-2 COVID-19 2020-07-19 Completed [facility] 12+ YRS 00:00:00 [place] [facility] SARS-COV-2 COVID-19 2020-07-19 Completed [facility] 12+ YRS 00:00:00 [place] [facility] SARS-COV-2 COVID-19 2020-07-19 Completed [facility] 12+ YRS 00:00:00 [place] [facility] SARS-COV-2 COVID-19 2020-07-19 Completed [facility] 12+ YRS 00:00:00 [place] [facility] SARS-COV-2 COVID-19 2020-07-19 Completed [facility] 12+ YRS 00:00:00 [place] [facility] SARS-COV-2 COVID-19 2020-07-19 Completed [facility] 12+ YRS 00:00:00 [place] [facility] SARS-COV-2 COVID-19 2020-07-19 Completed [facility] 12+ YRS 00:00:00 [place] [facility] SARS-COV-2 COVID-19 2020-07-19 Completed [facility] 12+ YRS 00:00:00 [place] [facility] SARS-COV-2 COVID-19 2020-07-19 Completed [facility] 12+ YRS 00:00:00 [place] [facility] SARS-COV-2 COVID-19 2020-07-19 Completed [facility] 12+ YRS 00:00:00 [place] [facility] SARS-COV-2 COVID-19 2020-07-19 Completed [facility] 12+ YRS 00:00:00 [place] [facility] SARS-COV-2 COVID-19 2020-07-19 Completed [facility] 12+ YRS 00:00:00 [place] [facility] SARS-COV-2 COVID-19 2020-07-19 Completed [facility] 12+ YRS 00:00:00 [place] [facility] SARS-COV-2 COVID-19 2020-07-19 Completed [facility] 12+ YRS 00:00:00 [place] [facility] SARS-COV-2 COVID-19 2020-07-19 Completed [facility] 12+ YRS 00:00:00 [place] [facility] SARS-COV-2 COVID-19 2020-07-19 Completed [facility] 12+ YRS 00:00:00 [place] [facility] SARS-COV-2 COVID-19 2020-07-19 Completed [facility] 12+ YRS 00:00:00 [place] [facility] SARS-COV-2 COVID-19 2020-07-19 Completed [facility] 12+ YRS 00:00:00 [place] [facility] SARS-COV-2 COVID-19 2020-07-19 Completed [facility] 12+ YRS 00:00:00 [place] [facility] SARS-COV-2 COVID-19 2020-07-19 Completed [facility] 12+ YRS 00:00:00 [place] [facility] SARS-COV-2 COVID-19 2020-07-19 Completed [facility] 12+ YRS 00:00:00 [place] [facility] SARS-COV-2 COVID-19 2020-07-19 Completed [facility] 12+ YRS 00:00:00 [place] [facility] SARS-COV-2 COVID-19 2020-07-19 Completed [facility] 12+ YRS 00:00:00 [place] [facility] SARS-COV-2 COVID-19 2020-07-19 Completed [facility] 12+ YRS 00:00:00 [place] [facility] SARS-COV-2 COVID-19 2020-07-19 Completed [facility] 12+ YRS 00:00:00 [place] [facility] SARS-COV-2 COVID-19 2020-07-19 Completed [facility] 12+ YRS 00:00:00 [place] [facility] SARS-COV-2 COVID-19 2020-07-19 Completed [facility] 12+ YRS 00:00:00 [place] [facility] SARS-COV-2 COVID-19 2020-07-19 Completed [facility] 12+ YRS 00:00:00 [place] [facility] SARS-COV-2 COVID-19 2020-07-19 Completed [facility] 12+ YRS 00:00:00 [place] [facility] SARS-COV-2 COVID-19 2020-07-19 Completed [facility] 12+ YRS 00:00:00 [place] [facility] SARS-COV-2 COVID-19 2020-07-19 Completed [facility] 12+ YRS 00:00:00 [place] [facility] SARS-COV-2 COVID-19 2020-07-19 Completed [facility] 12+ YRS 00:00:00 [place] [facility] SARS-COV-2 COVID-19 2020-07-19 Completed [facility] 12+ YRS 00:00:00 [place] [facility] SARS-COV-2 COVID-19 2020-07-19 Completed [facility] 12+ YRS 00:00:00 [place] [facility] SARS-COV-2 COVID-19 2020-07-19 Completed [facility] 12+ YRS 00:00:00 [place] [facility] SARS-COV-2 COVID-19 2020-07-19 Completed [facility] 12+ YRS 00:00:00 [place] [facility] SARS-COV-2 COVID-19 2020-07-19 Completed [facility] 12+ YRS 00:00:00 [place] [facility] SARS-COV-2 COVID-19 2020-07-19 Completed [facility] 12+ YRS 00:00:00 [place] [facility] SARS-COV-2 COVID-19 2020-07-19 Completed [facility] 12+ YRS 00:00:00 [place] [facility] SARS-COV-2 COVID-19 2020-07-19 Completed [facility] 12+ YRS 00:00:00 [place] [facility] SARS-COV-2 COVID-19 2020-07-19 Completed [facility] 12+ YRS 00:00:00 [place] [facility] SARS-COV-2 COVID-19 2020-07-19 Completed [facility] 12+ YRS 00:00:00 [place] [facility] SARS-COV-2 COVID-19 2020-07-19 Completed [facility] 12+ YRS 00:00:00 [place] [facility] SARS-COV-2 COVID-19 2020-07-19 Completed [facility] 12+ YRS 00:00:00 [place] [facility] SARS-COV-2 COVID-19 2020-07-19 Completed [facility] 12+ YRS 00:00:00 [place] [facility] SARS-COV-2 COVID-19 2020-07-19 Completed [facility] 12+ YRS 00:00:00 [place] [facility] SARS-COV-2 COVID-19 2020-07-19 Completed [facility] 12+ YRS 00:00:00 [place] [facility] SARS-COV-2 COVID-19 2020-07-19 Completed [facility] 12+ YRS 00:00:00 [place] [facility] SARS-COV-2 COVID-19 2020-07-19 Completed [facility] 12+ YRS 00:00:00 [place] [facility] SARS-COV-2 COVID-19 2020-07-19 Completed [facility] 12+ YRS 00:00:00 [place] [facility] SARS-COV-2 COVID-19 2020-07-19 Completed [facility] 12+ YRS 00:00:00 [place] [facility] SARS-COV-2 COVID-19 2020-07-19 Completed [facility] 12+ YRS 00:00:00 [place] [facility] SARS-COV-2 COVID-19 2020-07-19 Completed [facility] 12+ YRS 00:00:00 [place] [facility] SARS-COV-2 COVID-19 2020-07-19 Completed [facility] 12+ YRS 00:00:00 [place] [facility] SARS-COV-2 COVID-19 2020-07-19 Completed [facility] 12+ YRS 00:00:00 [place] [facility] SARS-COV-2 COVID-19 2020-07-19 Completed [facility] 12+ YRS 00:00:00 [place] [facility] SARS-COV-2 COVID-19 2020-07-19 Completed [facility] 12+ YRS 00:00:00 [place] [facility] SARS-COV-2 COVID-19 2020-07-19 Completed [facility] 12+ YRS 00:00:00 [place] [facility] SARS-COV-2 COVID-19 2020-07-19 Completed [facility] 12+ YRS 00:00:00 [place] [facility] SARS-COV-2 COVID-19 2020-07-19 Completed [facility] 12+ YRS 00:00:00 [place] [facility] SARS-COV-2 COVID-19 2020-07-19 Completed [facility] 12+ YRS 00:00:00 [place] [facility] SARS-COV-2 COVID-19 2020-07-19 Completed [facility] 12+ YRS 00:00:00 [place] [facility] SARS-COV-2 COVID-19 2020-07-19 Completed [facility] 12+ YRS 00:00:00 [place] [facility] SARS-COV-2 COVID-19 2020-07-19 Completed [facility] 12+ YRS 00:00:00 [place] [facility] SARS-COV-2 COVID-19 2020-07-19 Completed [facility] 12+ YRS 00:00:00 [place] [facility] SARS-COV-2 COVID-19 2020-07-19 Completed [facility] 12+ YRS 00:00:00 [place] [facility] SARS-COV-2 COVID-19 2020-07-19 Completed [facility] 12+ YRS 00:00:00 [place] [facility] SARS-COV-2 COVID-19 2020-07-19 Completed [facility] 12+ YRS 00:00:00 [place] [facility] SARS-COV-2 COVID-19 2020-07-19 Completed [facility] 12+ YRS 00:00:00 [place] [facility] SARS-COV-2 COVID-19 2020-07-19 Completed [facility] 12+ YRS 00:00:00 [place] [facility] SARS-COV-2 COVID-19 2020-07-19 Completed [facility] 12+ YRS 00:00:00 [place] [facility] SARS-COV-2 COVID-19 2020-07-19 Completed [facility] 12+ YRS 00:00:00 [place] [facility] SARS-COV-2 COVID-19 2020-07-19 Completed [facility] 12+ YRS 00:00:00 [place] [facility] SARS-COV-2 COVID-19 2020-07-19 Completed [facility] 12+ YRS 00:00:00 [place] [facility] SARS-COV-2 COVID-19 2020-07-19 Completed [facility] 12+ YRS 00:00:00 [place] [facility] SARS-COV-2 COVID-19 2020-07-19 Completed [facility] 12+ YRS 00:00:00 [place] [facility] SARS-COV-2 COVID-19 2020-07-19 Completed [facility] 12+ YRS 00:00:00 [place] [facility] SARS-COV-2 COVID-19 2020-07-19 Completed [facility] 12+ YRS 00:00:00 [place] [facility] SARS-COV-2 COVID-19 2020-07-19 Completed [facility] 12+ YRS 00:00:00 [place] [facility] SARS-COV-2 COVID-19 2020-06-21 Completed [facility] 12+ YRS 00:00:00 [place] [facility] SARS-COV-2 COVID-19 2020-06-21 Completed [facility] 12+ YRS 00:00:00 [place] [facility] SARS-COV-2 COVID-19 2020-06-21 Completed [facility] 12+ YRS 00:00:00 [place] [facility] SARS-COV-2 COVID-19 2020-06-21 Completed [facility] 12+ YRS 00:00:00 [place] [facility] SARS-COV-2 COVID-19 2020-06-21 Completed [facility] 12+ YRS 00:00:00 [place] [facility] SARS-COV-2 COVID-19 2020-06-21 Completed [facility] 12+ YRS 00:00:00 [place] [facility] SARS-COV-2 COVID-19 2020-06-21 Completed [facility] 12+ YRS 00:00:00 [place] [facility] SARS-COV-2 COVID-19 2020-06-21 Completed [facility] 12+ YRS 00:00:00 [place] [facility] SARS-COV-2 COVID-19 2020-06-21 Completed [facility] 12+ YRS 00:00:00 [place] [facility] SARS-COV-2 COVID-19 2020-06-21 Completed [facility] 12+ YRS 00:00:00 [place] [facility] SARS-COV-2 COVID-19 2020-06-21 Completed [facility] 12+ YRS 00:00:00 [place] [facility] SARS-COV-2 COVID-19 2020-06-21 Completed [facility] 12+ YRS 00:00:00 [place] [facility] SARS-COV-2 COVID-19 2020-06-21 Completed [facility] 12+ YRS 00:00:00 [place] [facility] SARS-COV-2 COVID-19 2020-06-21 Completed [facility] 12+ YRS 00:00:00 [place] [facility] SARS-COV-2 COVID-19 2020-06-21 Completed [facility] 12+ YRS 00:00:00 [place] [facility] SARS-COV-2 COVID-19 2020-06-21 Completed [facility] 12+ YRS 00:00:00 [place] [facility] SARS-COV-2 COVID-19 2020-06-21 Completed [facility] 12+ YRS 00:00:00 [place] [facility] SARS-COV-2 COVID-19 2020-06-21 Completed [facility] 12+ YRS 00:00:00 [place] [facility] SARS-COV-2 COVID-19 2020-06-21 Completed [facility] 12+ YRS 00:00:00 [place] [facility] SARS-COV-2 COVID-19 2020-06-21 Completed [facility] 12+ YRS 00:00:00 [place] [facility] SARS-COV-2 COVID-19 2020-06-21 Completed [facility] 12+ YRS 00:00:00 [place] [facility] SARS-COV-2 COVID-19 2020-06-21 Completed [facility] 12+ YRS 00:00:00 [place] [facility] SARS-COV-2 COVID-19 2020-06-21 Completed [facility] 12+ YRS 00:00:00 [place] [facility] SARS-COV-2 COVID-19 2020-06-21 Completed [facility] 12+ YRS 00:00:00 [place] [facility] SARS-COV-2 COVID-19 2020-06-21 Completed [facility] 12+ YRS 00:00:00 [place] [facility] SARS-COV-2 COVID-19 2020-06-21 Completed [facility] 12+ YRS 00:00:00 [place] [facility] SARS-COV-2 COVID-19 2020-06-21 Completed [facility] 12+ YRS 00:00:00 [place] [facility] SARS-COV-2 COVID-19 2020-06-21 Completed [facility] 12+ YRS 00:00:00 [place] [facility] SARS-COV-2 COVID-19 2020-06-21 Completed [facility] 12+ YRS 00:00:00 [place] [facility] SARS-COV-2 COVID-19 2020-06-21 Completed [facility] 12+ YRS 00:00:00 [place] [facility] SARS-COV-2 COVID-19 2020-06-21 Completed [facility] 12+ YRS 00:00:00 [place] [facility] SARS-COV-2 COVID-19 2020-06-21 Completed [facility] 12+ YRS 00:00:00 [place] [facility] SARS-COV-2 COVID-19 2020-06-21 Completed [facility] 12+ YRS 00:00:00 [place] [facility] SARS-COV-2 COVID-19 2020-06-21 Completed [facility] 12+ YRS 00:00:00 [place] [facility] SARS-COV-2 COVID-19 2020-06-21 Completed [facility] 12+ YRS 00:00:00 [place] [facility] SARS-COV-2 COVID-19 2020-06-21 Completed [facility] 12+ YRS 00:00:00 [place] [facility] SARS-COV-2 COVID-19 2020-06-21 Completed [facility] 12+ YRS 00:00:00 [place] [facility] SARS-COV-2 COVID-19 2020-06-21 Completed [facility] 12+ YRS 00:00:00 [place] [facility] SARS-COV-2 COVID-19 2020-06-21 Completed [facility] 12+ YRS 00:00:00 [place] [facility] SARS-COV-2 COVID-19 2020-06-21 Completed [facility] 12+ YRS 00:00:00 [place] [facility] SARS-COV-2 COVID-19 2020-06-21 Completed [facility] 12+ YRS 00:00:00 [place] [facility] SARS-COV-2 COVID-19 2020-06-21 Completed [facility] 12+ YRS 00:00:00 [place] [facility] SARS-COV-2 COVID-19 2020-06-21 Completed [facility] 12+ YRS 00:00:00 [place] [facility] SARS-COV-2 COVID-19 2020-06-21 Completed [facility] 12+ YRS 00:00:00 [place] [facility] SARS-COV-2 COVID-19 2020-06-21 Completed [facility] 12+ YRS 00:00:00 [place] [facility] SARS-COV-2 COVID-19 2020-06-21 Completed [facility] 12+ YRS 00:00:00 [place] [facility] SARS-COV-2 COVID-19 2020-06-21 Completed [facility] 12+ YRS 00:00:00 [place] [facility] SARS-COV-2 COVID-19 2020-06-21 Completed [facility] 12+ YRS 00:00:00 [place] [facility] SARS-COV-2 COVID-19 2020-06-21 Completed [facility] 12+ YRS 00:00:00 [place] [facility] SARS-COV-2 COVID-19 2020-06-21 Completed [facility] 12+ YRS 00:00:00 [place] [facility] SARS-COV-2 COVID-19 2020-06-21 Completed [facility] 12+ YRS 00:00:00 [place] [facility] SARS-COV-2 COVID-19 2020-06-21 Completed [facility] 12+ YRS 00:00:00 [place] [facility] SARS-COV-2 COVID-19 2020-06-21 Completed [facility] 12+ YRS 00:00:00 [place] [facility] SARS-COV-2 COVID-19 2020-06-21 Completed [facility] 12+ YRS 00:00:00 [place] [facility] SARS-COV-2 COVID-19 2020-06-21 Completed [facility] 12+ YRS 00:00:00 [place] [facility] SARS-COV-2 COVID-19 2020-06-21 Completed [facility] 12+ YRS 00:00:00 [place] [facility] SARS-COV-2 COVID-19 2020-06-21 Completed [facility] 12+ YRS 00:00:00 [place] [facility] SARS-COV-2 COVID-19 2020-06-21 Completed [facility] 12+ YRS 00:00:00 [place] [facility] SARS-COV-2 COVID-19 2020-06-21 Completed [facility] 12+ YRS 00:00:00 [place] [facility] SARS-COV-2 COVID-19 2020-06-21 Completed [facility] 12+ YRS 00:00:00 [place] [facility] SARS-COV-2 COVID-19 2020-06-21 Completed [facility] 12+ YRS 00:00:00 [place] [facility] SARS-COV-2 COVID-19 2020-06-21 Completed [facility] 12+ YRS 00:00:00 [place] [facility] SARS-COV-2 COVID-19 2020-06-21 Completed [facility] 12+ YRS 00:00:00 [place] [facility] SARS-COV-2 COVID-19 2020-06-21 Completed [facility] 12+ YRS 00:00:00 [place] [facility] SARS-COV-2 COVID-19 2020-06-21 Completed [facility] 12+ YRS 00:00:00 [place] [facility] SARS-COV-2 COVID-19 2020-06-21 Completed [facility] 12+ YRS 00:00:00 [place] [facility] SARS-COV-2 COVID-19 2020-06-21 Completed [facility] 12+ YRS 00:00:00 [place] [facility] SARS-COV-2 COVID-19 2020-06-21 Completed [facility] 12+ YRS 00:00:00 [place] [facility] SARS-COV-2 COVID-19 2020-06-21 Completed [facility] 12+ YRS 00:00:00 [place] [facility] SARS-COV-2 COVID-19 2020-06-21 Completed [facility] 12+ YRS 00:00:00 [place] [facility] SARS-COV-2 COVID-19 2020-06-21 Completed [facility] 12+ YRS 00:00:00 [place] [facility] SARS-COV-2 COVID-19 2020-06-21 Completed [facility] 12+ YRS 00:00:00 [place] [facility] SARS-COV-2 COVID-19 2020-06-21 Completed [facility] 12+ YRS 00:00:00 [place] [facility] SARS-COV-2 COVID-19 2020-06-21 Completed [facility] 12+ YRS 00:00:00 [place] [facility] SARS-COV-2 COVID-19 2020-06-21 Completed [facility] 12+ YRS 00:00:00 [place] [facility] SARS-COV-2 COVID-19 2020-06-21 Completed [facility] 12+ YRS 00:00:00 [place] [facility] SARS-COV-2 COVID-19 2020-06-21 Completed [facility] 12+ YRS 00:00:00 [place] [facility] SARS-COV-2 COVID-19 2020-06-21 Completed [facility] 12+ YRS 00:00:00 [place] [facility] SARS-COV-2 COVID-19 2020-06-21 Completed [facility] 12+ YRS 00:00:00 [place] [facility] SARS-COV-2 COVID-19 2020-06-21 Completed [facility] 12+ YRS 00:00:00 [place] [facility] SARS-COV-2 COVID-19 2020-06-21 Completed [facility] 12+ YRS 00:00:00 [place] [facility] SARS-COV-2 COVID-19 2020-06-21 Completed [facility] 12+ YRS 00:00:00 [place] [facility] SARS-COV-2 COVID-19 2020-06-21 Completed [facility] 12+ YRS 00:00:00 [place] [facility] SARS-COV-2 COVID-19 2020-06-21 Completed [facility] 12+ YRS 00:00:00 [place] [facility] SARS-COV-2 COVID-19 2020-06-21 Completed [facility] 12+ YRS 00:00:00 [place] [facility] SARS-COV-2 COVID-19 2020-06-21 Completed [facility] 12+ YRS 00:00:00 [place] [facility] SARS-COV-2 COVID-19 2020-06-21 Completed [facility] 12+ YRS 00:00:00 [place] [facility] SARS-COV-2 COVID-19 2020-06-21 Completed [facility] 12+ YRS 00:00:00 [place] [facility] SARS-COV-2 COVID-19 2020-06-21 Completed [facility] 12+ YRS 00:00:00 [place] [facility] SARS-COV-2 COVID-19 2020-06-21 Completed [facility] 12+ YRS 00:00:00 [facility] SARS-COV-2 COVID-19 2020-06-21 Completed [facility] 12+ YRS 00:00:00 [facility] SARS-COV-2 COVID-19 2020-06-21 Completed [facility] 12+ YRS 00:00:00 [facility] SARS-COV-2 COVID-19 2020-06-21 Completed [facility] 12+ YRS 00:00:00 [facility] SARS-COV-2 COVID-19 2020-06-21 Completed [facility] 12+ YRS 00:00:00 [facility] SARS-COV-2 COVID-19 2020-06-21 Completed [facility] 12+ YRS 00:00:00 [facility] SARS-COV-2 COVID-19 2020-06-21 Completed [facility] 12+ YRS 00:00:00 [facility] SARS-COV-2 COVID-19 2020-06-21 Completed [facility] 12+ YRS 00:00:00 [facility] SARS-COV-2 COVID-19 2020-06-21 Completed [facility] 12+ YRS 00:00:00 [facility] SARS-COV-2 COVID-19 2020-06-21 Completed [facility] 12+ YRS 00:00:00 [facility] SARS-COV-2 COVID-19 2020-06-21 Completed [facility] 12+ YRS 00:00:00 [facility] SARS-COV-2 COVID-19 2020-06-21 Completed [facility] 12+ YRS 00:00:00 [facility] SARS-COV-2 COVID-19 2020-06-21 Completed [facility] 12+ YRS 00:00:00 [facility] SARS-COV-2 COVID-19 2020-06-21 Completed [facility] 12+ YRS 00:00:00 [facility] SARS-COV-2 COVID-19 2020-06-21 Completed [facility] 12+ YRS 00:00:00 [facility] SARS-COV-2 COVID-19 2020-06-21 Completed [facility] 12+ YRS 00:00:00 [facility] SARS-COV-2 COVID-19 2020-06-21 Completed [facility] 12+ YRS 00:00:00 [facility] SARS-COV-2 COVID-19 2020-06-21 Completed [facility] 12+ YRS 00:00:00 [facility] SARS-COV-2 COVID-19 2020-06-21 Completed [facility] 12+ YRS 00:00:00 [facility] SARS-COV-2 COVID-19 2020-06-21 Completed [facility] 12+ YRS 00:00:00 [facility] SARS-COV-2 COVID-19 2020-06-21 Completed [facility] 12+ YRS 00:00:00 [facility] SARS-COV-2 COVID-19 2020-06-21 Completed [facility] 12+ YRS 00:00:00 [facility] SARS-COV-2 COVID-19 2020-06-21 Completed [facility] 12+ YRS 00:00:00 [facility] SARS-COV-2 COVID-19 2020-06-21 Completed [facility] 12+ YRS 00:00:00 [facility] SARS-COV-2 COVID-19 2020-06-21 Completed [facility] 12+ YRS 00:00:00 [facility] SARS-COV-2 COVID-19 2020-06-21 Completed [facility] 12+ YRS 00:00:00 [facility] SARS-COV-2 COVID-19 2020-06-21 Completed [facility] 12+ YRS 00:00:00 [facility] SARS-COV-2 COVID-19 2020-06-21 Completed [facility] 12+ YRS 00:00:00 [facility] SARS-COV-2 COVID-19 2020-06-21 Completed [facility] 12+ YRS 00:00:00 [facility] SARS-COV-2 COVID-19 2020-06-21 Completed [facility] 12+ YRS 00:00:00 [facility] SARS-COV-2 COVID-19 2020-06-21 Completed [facility] 12+ YRS 00:00:00 [facility] SARS-COV-2 COVID-19 2020-06-21 Completed [facility] 12+ YRS 00:00:00 [facility] SARS-COV-2 COVID-19 2020-06-21 Completed [facility] 12+ YRS 00:00:00 [facility] SARS-COV-2 COVID-19 2020-06-21 Completed [facility] 12+ YRS 00:00:00 [facility] SARS-COV-2 COVID-19 2020-06-21 Completed [facility] 12+ YRS 00:00:00 [facility] SARS-COV-2 COVID-19 2020-06-21 Completed [facility] 12+ YRS 00:00:00 [facility] SARS-COV-2 COVID-19 2020-06-21 Completed [facility] 12+ YRS 00:00:00 [facility] SARS-COV-2 COVID-19 2020-06-21 Completed [facility] 12+ YRS 00:00:00 [facility] SARS-COV-2 COVID-19 2020-06-21 Completed [facility] 12+ YRS 00:00:00 [place] [facility] SARS-COV-2 COVID-19 2020-06-21 Completed [facility] 12+ YRS 00:00:00 [facility] SARS-COV-2 COVID-19 2020-06-21 Completed [facility] 12+ YRS 00:00:00 [place] [facility] SARS-COV-2 COVID-19 2020-06-21 Completed [facility] 12+ YRS 00:00:00 [place] [facility] SARS-COV-2 COVID-19 2020-06-21 Completed [facility] 12+ YRS 00:00:00 [facility] SARS-COV-2 COVID-19 2020-06-21 Completed [facility] 12+ YRS 00:00:00 [facility] SARS-COV-2 COVID-19 2020-06-21 Completed [facility] 12+ YRS 00:00:00 [facility] SARS-COV-2 COVID-19 2020-06-21 Completed [facility] 12+ YRS 00:00:00 [facility] SARS-COV-2 COVID-19 2020-06-21 Completed [facility] 12+ YRS 00:00:00 [facility] SARS-COV-2 COVID-19 2020-06-21 Completed [facility] 12+ YRS 00:00:00 [facility] SARS-COV-2 COVID-19 2020-06-21 Completed [facility] 12+ YRS 00:00:00 [facility] SARS-COV-2 COVID-19 2020-06-21 Completed [facility] 12+ YRS 00:00:00 [facility] SARS-COV-2 COVID-19 2020-06-21 Completed [facility] 12+ YRS 00:00:00 [facility] SARS-COV-2 COVID-19 2020-06-21 Completed [facility] 12+ YRS 00:00:00 [facility] SARS-COV-2 COVID-19 2020-06-21 Completed [facility] 12+ YRS 00:00:00 [facility] SARS-COV-2 COVID-19 2020-06-21 Completed [facility] 12+ YRS 00:00:00 [facility] SARS-COV-2 COVID-19 2020-06-21 Completed [facility] 12+ YRS 00:00:00 [facility] SARS-COV-2 COVID-19 2020-06-21 Completed [facility] 12+ YRS 00:00:00 [facility] SARS-COV-2 COVID-19 2020-06-21 Completed [facility] 12+ YRS 00:00:00 [facility] SARS-COV-2 COVID-19 2020-06-21 Completed [facility] 12+ YRS 00:00:00 [facility] SARS-COV-2 COVID-19 2020-06-21 Completed [facility] 12+ YRS 00:00:00 [facility] SARS-COV-2 COVID-19 2020-06-21 Completed [facility] 12+ YRS 00:00:00 [facility] SARS-COV-2 COVID-19 2020-06-21 Completed [facility] 12+ YRS 00:00:00 [facility] SARS-COV-2 COVID-19 2020-06-21 Completed [facility] 12+ YRS 00:00:00 [facility] SARS-COV-2 COVID-19 2020-06-21 Completed [facility] 12+ YRS 00:00:00 [facility] SARS-COV-2 COVID-19 2020-06-21 Completed [facility] 12+ YRS 00:00:00 [facility] SARS-COV-2 COVID-19 2020-06-21 Completed [facility] 12+ YRS 00:00:00 [facility] SARS-COV-2 COVID-19 2020-06-21 Completed [facility] 12+ YRS 00:00:00 [facility] SARS-COV-2 COVID-19 2020-06-21 Completed [facility] 12+ YRS 00:00:00 [facility] SARS-COV-2 COVID-19 2020-06-21 Completed [facility] 12+ YRS 00:00:00 [facility] SARS-COV-2 COVID-19 2020-06-21 Completed [facility] 12+ YRS 00:00:00 [place] [facility] SARS-COV-2 COVID-19 2020-06-21 Completed [facility] 12+ YRS 00:00:00 [facility] SARS-COV-2 COVID-19 2020-06-21 Completed [facility] 12+ YRS 00:00:00 [facility] SARS-COV-2 COVID-19 2020-06-21 Completed [facility] 12+ YRS 00:00:00 [facility] SARS-COV-2 COVID-19 2020-06-21 Completed [facility] 12+ YRS 00:00:00 [place] [facility] SARS-COV-2 COVID-19 2020-06-21 Completed [facility] 12+ YRS 00:00:00 [facility] SARS-COV-2 COVID-19 2020-06-21 Completed [facility] 12+ YRS 00:00:00 [place] [facility] SARS-COV-2 COVID-19 2020-06-21 Completed [facility] 12+ YRS 00:00:00 [place] [facility] SARS-COV-2 COVID-19 2020-06-21 Completed [facility] 12+ YRS 00:00:00 [place] [facility] SARS-COV-2 COVID-19 2020-06-21 Completed [facility] 12+ YRS 00:00:00 [place] [facility] SARS-COV-2 COVID-19 2020-06-21 Completed [facility] 12+ YRS 00:00:00 [place] [facility] SARS-COV-2 COVID-19 2020-06-21 Completed [facility] 12+ YRS 00:00:00 [place] [facility] SARS-COV-2 COVID-19 2020-06-21 Completed [facility] 12+ YRS 00:00:00 [place] [facility] SARS-COV-2 COVID-19 2020-06-21 Completed [facility] 12+ YRS 00:00:00 [place] [facility] SARS-COV-2 COVID-19 2020-06-21 Completed [facility] 12+ YRS 00:00:00 [place] [facility] SARS-COV-2 COVID-19 2020-06-21 Completed [facility] 12+ YRS 00:00:00 [place] [facility] SARS-COV-2 COVID-19 2020-06-21 Completed [facility] 12+ YRS 00:00:00 [place] [facility] SARS-COV-2 COVID-19 2020-06-21 Completed [facility]ER[facility] 12+ YRS 00:00:00 [facility] ical VACCINE Branch SARS-COV-2 COVID-19 2020-06-21 Completed [facility] of MODERNA 12+ YRS 00:00:00 [facility] ical VACCINE Branch Influenza High Dose 2020-02-23 Completed [facility] of 00:00:00 [facility] Influenza High Dose 2020-02-23 Completed [facility] of 00:00:00 [facility] Influenza High Dose 2020-02-23 Completed [facility] of 00:00:00 [facility] Influenza High Dose 2020-02-23 Completed [facility] of 00:00:00 [facility] Influenza High Dose 2020-02-23 Completed [facility] of 00:00:00 [facility] Influenza High Dose 2020-02-23 Completed [facility] of 00:00:00 [facility] Influenza High Dose 2020-02-23 Completed [facility] of 00:00:00 [facility] Influenza High Dose 2020-02-23 Completed [facility] of 00:00:00 [facility] Influenza High Dose 2020-02-23 Completed [facility] of 00:00:00 [facility] Influenza High Dose 2020-02-23 Completed [facility] of 00:00:00 [facility] Influenza High Dose 2020-02-23 Completed [facility] of 00:00:00 [facility] Influenza High Dose 2020-02-23 Completed [facility] of 00:00:00 [facility] Influenza High Dose 2020-02-23 Completed [facility] of 00:00:00 [facility] Influenza High Dose 2020-02-23 Completed [facility] of 00:00:00 [facility] Influenza High Dose 2020-02-23 Completed [facility] of 00:00:00 [facility] Influenza High Dose 2020-02-23 Completed [facility] of 00:00:00 [facility] Influenza High Dose 2020-02-23 Completed [facility] of 00:00:00 [facility] Influenza High Dose 2020-02-23 Completed [facility] of 00:00:00 [facility] Influenza High Dose 2020-02-23 Completed [facility] of 00:00:00 [facility] Influenza High Dose 2020-02-23 Completed [facility] of 00:00:00 [facility] Influenza High Dose 2020-02-23 Completed [facility] of 00:00:00 [facility] Influenza High Dose 2020-02-23 Completed [facility] of 00:00:00 [facility] Influenza High Dose 2020-02-23 Completed [facility] of 00:00:00 [facility] Influenza High Dose 2020-02-23 Completed [facility] of 00:00:00 [facility] Influenza High Dose 2020-02-23 Completed [facility] of 00:00:00 [facility] Influenza High Dose 2020-02-23 Completed [facility] of 00:00:00 [facility] Influenza High Dose 2020-02-23 Completed [facility] of 00:00:00 [facility] Influenza High Dose 2020-02-23 Completed [facility] of 00:00:00 [facility] Influenza High Dose 2020-02-23 Completed [facility] of 00:00:00 [facility] Influenza High Dose 2020-02-23 Completed [facility] of 00:00:00 [facility] Influenza High Dose 2020-02-23 Completed [facility] of 00:00:00 [facility] Influenza High Dose 2020-02-23 Completed [facility] of 00:00:00 [facility] Influenza High Dose 2020-02-23 Completed [facility] of 00:00:00 [facility] Influenza High Dose 2020-02-23 Completed [facility] of 00:00:00 [facility] Influenza High Dose 2020-02-23 Completed [facility] of 00:00:00 [facility] Influenza High Dose 2020-02-23 Completed [facility] of 00:00:00 [facility] Influenza High Dose 2020-02-23 Completed [facility] of 00:00:00 [facility] Influenza High Dose 2020-02-23 Completed [facility] of 00:00:00 [facility] Influenza High Dose 2020-02-23 Completed [facility] of 00:00:00 [facility] Influenza High Dose 2020-02-23 Completed [facility] of 00:00:00 [facility] Influenza High Dose 2020-02-23 Completed [facility] of 00:00:00 [facility] Influenza High Dose 2020-02-23 Completed [facility] of 00:00:00 [facility] Influenza High Dose 2020-02-23 Completed [facility] of 00:00:00 [facility] Influenza High Dose 2020-02-23 Completed [facility] of 00:00:00 [facility] Influenza High Dose 2020-02-23 Completed [facility] of 00:00:00 [facility] Influenza High Dose 2020-02-23 Completed [facility] of 00:00:00 [facility] Influenza High Dose 2020-02-23 Completed [facility] of 00:00:00 [facility] Influenza High Dose 2020-02-23 Completed [facility] of 00:00:00 [facility] Influenza High Dose 2020-02-23 Completed [facility] of 00:00:00 [facility] Influenza High Dose 2020-02-23 Completed [facility] of 00:00:00 [facility] Influenza High Dose 2020-02-23 Completed [facility] of 00:00:00 [facility] Influenza High Dose 2020-02-23 Completed [facility] of 00:00:00 [facility] Influenza High Dose 2020-02-23 Completed [facility] of 00:00:00 [facility] Influenza High Dose 2020-02-23 Completed [facility] of 00:00:00 [facility] Influenza High Dose 2020-02-23 Completed [facility] of 00:00:00 [facility] Influenza High Dose 2020-02-23 Completed [facility] of 00:00:00 [facility] Influenza High Dose 2020-02-23 Completed [facility] of 00:00:00 [facility] Influenza High Dose 2020-02-23 Completed [facility] of 00:00:00 [facility] Influenza High Dose 2020-02-23 Completed [facility] of 00:00:00 [facility] Influenza High Dose 2020-02-23 Completed [facility] of 00:00:00 [facility] Influenza High Dose 2020-02-23 Completed [facility] of 00:00:00 [facility] Influenza High Dose 2020-02-23 Completed [facility] of 00:00:00 [facility] Influenza High Dose 2020-02-23 Completed [facility] of 00:00:00 [facility] Influenza High Dose 2020-02-23 Completed [facility] of 00:00:00 [facility] Influenza High Dose 2020-02-23 Completed [facility] of 00:00:00 [facility] Influenza High Dose 2020-02-23 Completed [facility] of 00:00:00 [facility] Influenza High Dose 2020-02-23 Completed [facility] of 00:00:00 [facility] Influenza High Dose 2020-02-23 Completed [facility] of 00:00:00 [facility] Influenza High Dose 2020-02-23 Completed [facility] of 00:00:00 [facility] Influenza High Dose 2020-02-23 Completed [facility] of 00:00:00 [facility] Influenza High Dose 2020-02-23 Completed [facility] of 00:00:00 [facility] Influenza High Dose 2020-02-23 Completed [facility] of 00:00:00 [facility] Influenza High Dose 2020-02-23 Completed [facility] of 00:00:00 [facility] Influenza High Dose 2020-02-23 Completed [facility] of 00:00:00 [facility] Influenza High Dose 2020-02-23 Completed [facility] of 00:00:00 [facility] Influenza High Dose 2020-02-23 Completed [facility] of 00:00:00 [facility] Influenza High Dose 2020-02-23 Completed [facility] of 00:00:00 [facility] Influenza High Dose 2020-02-23 Completed [facility] of 00:00:00 [facility] Influenza High Dose 2020-02-23 Completed [facility] of 00:00:00 [facility] Influenza High Dose 2020-02-23 Completed [facility] of 00:00:00 [facility] Influenza High Dose 2020-02-23 Completed [facility] of 00:00:00 [facility] Influenza High Dose 2020-02-23 Completed [facility] of 00:00:00 [facility] Influenza High Dose 2020-02-23 Completed [facility] of 00:00:00 [facility] Influenza High Dose 2020-02-23 Completed [facility] of 00:00:00 [facility] Influenza High Dose 2020-02-23 Completed [facility] of 00:00:00 [facility] Influenza High Dose 2020-02-23 Completed [facility] of 00:00:00 [facility] Influenza High Dose 2020-02-23 Completed [facility] of 00:00:00 [facility] Influenza High Dose 2020-02-23 Completed [facility] of 00:00:00 [facility] Influenza High Dose 2020-02-23 Completed [facility] of 00:00:00 [facility] Influenza High Dose 2020-02-23 Completed [facility] of 00:00:00 [facility] Influenza High Dose 2020-02-23 Completed [facility] of 00:00:00 [facility] Influenza High Dose 2020-02-23 Completed [facility] of 00:00:00 [facility] Influenza High Dose 2020-02-23 Completed [facility] of 00:00:00 [facility] Influenza High Dose 2020-02-23 Completed [facility] of 00:00:00 [facility] Influenza High Dose 2020-02-23 Completed [facility] of 00:00:00 [facility] Influenza High Dose 2020-02-23 Completed [facility] of 00:00:00 [facility] Influenza High Dose 2020-02-23 Completed [facility] of 00:00:00 [facility] Influenza High Dose 2020-02-23 Completed [facility] of 00:00:00 [facility] Influenza High Dose 2020-02-23 Completed [facility] of 00:00:00 [facility] Influenza High Dose 2020-02-23 Completed [facility] of 00:00:00 [facility] Influenza High Dose 2020-02-23 Completed [facility] of 00:00:00 [facility] Influenza High Dose 2020-02-23 Completed [facility] of 00:00:00 [facility] Influenza High Dose 2020-02-23 Completed [facility] of 00:00:00 [facility] Influenza High Dose 2020-02-23 Completed [facility] of 00:00:00 [facility] Influenza High Dose 2020-02-23 Completed [facility] of 00:00:00 [facility] Influenza High Dose 2020-02-23 Completed [facility] of 00:00:00 [facility] Influenza High Dose 2020-02-23 Completed [facility] of 00:00:00 [facility] Influenza High Dose 2020-02-23 Completed [facility] of 00:00:00 [facility] Influenza High Dose 2020-02-23 Completed [facility] of 00:00:00 [facility] Influenza High Dose 2020-02-23 Completed [facility] of 00:00:00 [facility] Influenza High Dose 2020-02-23 Completed [facility] of 00:00:00 [facility] Influenza High Dose 2020-02-23 Completed [facility] of 00:00:00 [facility] Influenza High Dose 2020-02-23 Completed [facility] of 00:00:00 [facility] Influenza High Dose 2020-02-23 Completed [facility] of 00:00:00 [facility] Influenza High Dose 2020-02-23 Completed [facility] of 00:00:00 [facility] Influenza High Dose 2020-02-23 Completed [facility] of 00:00:00 [facility] Influenza High Dose 2020-02-23 Completed [facility] of 00:00:00 [facility] Influenza High Dose 2020-02-23 Completed [facility] of 00:00:00 [facility] Influenza High Dose 2020-02-23 Completed [facility] of 00:00:00 [facility] Influenza High Dose 2020-02-23 Completed [facility] of 00:00:00 [facility] Influenza High Dose 2020-02-23 Completed [facility] of 00:00:00 [facility] Influenza High Dose 2020-02-23 Completed [facility] of 00:00:00 [facility] Influenza High Dose 2020-02-23 Completed [facility] of 00:00:00 [facility] Influenza High Dose 2020-02-23 Completed [facility] of 00:00:00 [facility] Influenza High Dose 2020-02-23 Completed [facility] of 00:00:00 [facility] Influenza High Dose 2020-02-23 Completed [facility] of 00:00:00 [facility] Influenza High Dose 2020-02-23 Completed [facility] of 00:00:00 [facility] Influenza High Dose 2020-02-23 Completed [facility] of 00:00:00 [facility] Influenza High Dose 2020-02-23 Completed [facility] of 00:00:00 [facility] Influenza High Dose 2020-02-23 Completed [facility] of 00:00:00 [facility] Influenza High Dose 2020-02-23 Completed [facility] of 00:00:00 [facility] Influenza High Dose 2020-02-23 Completed [facility] of 00:00:00 [facility] Influenza High Dose 2020-02-23 Completed [facility] of 00:00:00 [facility] Influenza High Dose 2020-02-23 Completed [facility] of 00:00:00 [facility] Influenza High Dose 2020-02-23 Completed [facility] of 00:00:00 [facility] Influenza High Dose 2020-02-23 Completed [facility] of 00:00:00 [facility] Influenza High Dose 2020-02-23 Completed [facility] of 00:00:00 [facility] Influenza High Dose 2020-02-23 Completed [facility] of 00:00:00 [facility] Influenza High Dose 2020-02-23 Completed [facility] of 00:00:00 [facility] Influenza High Dose 2020-02-23 Completed [facility] of 00:00:00 [facility] Influenza High Dose 2020-02-23 Completed [facility] of 00:00:00 [facility] Influenza High Dose 2020-02-23 Completed [facility] of 00:00:00 [facility] Influenza High Dose 2020-02-23 Completed [facility] of 00:00:00 [facility] Influenza High Dose 2020-02-23 Completed [facility] of 00:00:00 [facility] Influenza High Dose 2020-02-23 Completed [facility] 00:00:00 [facility] Influenza High Dose 2020-02-23 Completed [facility] 00:00:00 [facility] Influenza High Dose 2020-02-23 Completed [facility] of 00:00:00 [facility] Influenza High Dose 2020-02-23 Completed [facility] 00[facility]00:00 [facility] Influenza High Dose 2020-02-23 Completed [facility] 00:00:00 [facility] Influenza High Dose 2020-02-23 Completed [facility] 00:00:00 [facility] Influenza High Dose 2020-02-23 Completed [facility] 00:00:00 [facility] Influenza High Dose 2020-02-23 Completed [facility] 00:00:00 [facility] Influenza High Dose 2020-02-23 Completed [facility] 00:00:00 [facility] Influenza High Dose 2020-02-23 Completed [facility] 00:00:00 [facility] Influenza High Dose 2020-02-23 Completed [facility] 00:00:00 [facility] Influenza High Dose 2020-02-23 Completed [facility] 00:00:00 [facility] Influenza High Dose 2020-02-23 Completed [facility] 00:00:00 [facility] Influenza High Dose 2020-02-23 Completed [facility] 00:00:00 [facility] Influenza High Dose 2020-02-23 Completed [facility] 00:00:00 [facility] Influenza High Dose 2020-02-23 Completed [facility] 00:00:00 [facility] Influenza High Dose 2020-02-23 Completed [facility] 00:00:00 [facility] Influenza High Dose 2020-02-23 Completed [facility] 00:00:00 [facility] Influenza High Dose 2020-02-23 Completed [facility] 00:00:00 [facility] Influenza High Dose 2020-02-23 Completed [facility] 00:00:00 [facility] Influenza High Dose 2020-02-23 Completed [facility] 00:00:00 [facility] Influenza High Dose 2020-02-23 Completed [facility] 00:00:00 [facility] Influenza High Dose 2020-02-23 Completed [facility] 00:00:00 [facility] Influenza High Dose 2020-02-23 Completed [facility] 00:00:00 [facility] Influenza High Dose 2020-02-23 Completed [facility] 00:00:00 [facility] Influenza High Dose 2020-02-23 Completed [facility] 00:00:00 [facility] Influenza High Dose 2020-02-23 Completed [facility] 00:00:00 [facility] Influenza High Dose 2020-02-23 Completed [facility] 00:00:00 [facility] Influenza High Dose 2020-02-23 Completed [facility] 00:00:00 [facility] Influenza High Dose 2020-02-23 Completed [facility] 00:00:00 [facility] Influenza High Dose 2020-02-23 Completed [facility] 00:00:00 [facility] Influenza High Dose 2020-02-23 Completed [facility] 00:00:00 [facility] Pneumococcal 2020-01-23 Completed [facility] Polysaccharide, 00:00:00 [place] [facility] PPSV23 (PNEUMOVAX) [facility] Influenza High Dose 2020-01-23 Completed [facility] 00:00:00 [facility] Influenza High Dose 2020-01-23 Completed [facility] 00:00:00 [facility] Pneumococcal 2020-01-23 Completed [facility] Polysaccharide, 00:00:00 [place] [facility] PPSV23 (PNEUMOVAX) [facility] Influenza High Dose 2020-01-23 Completed [facility] 00:00:00 [facility] Influenza High Dose 2020-01-23 Completed [facility] 00:00:00 [facility] Pneumococcal 2020-01-23 Completed [facility] Polysaccharide, 00:00:00 [place] [facility] PPSV23 (PNEUMOVAX) [facility] Influenza High Dose 2020-01-23 Completed [facility] 00:00:00 [facility] Influenza High Dose 2020-01-23 Completed [facility] 00[facility]00:00 [facility] Pneumococcal 2020-01-23 Completed [facility] Polysaccharide, 00:00:00 [place] [facility] PPSV23 (PNEUMOVAX) [facility] Influenza High Dose 2020-01-23 Completed [facility] 00:00:00 [facility] Influenza High Dose 2020-01-23 Completed [facility] 00:00:00 [facility] Pneumococcal 2020-01-23 Completed [facility] Polysaccharide, 00:00:00 [place] [facility] PPSV23 (PNEUMOVAX) [facility] Influenza High Dose 2020-01-23 Completed [facility] 00:00:00 [facility] Influenza High Dose 2020-01-23 Completed [facility] 00:00:00 [facility] Pneumococcal 2020-01-23 Completed [facility] Polysaccharide, 00:00:00 [place] [facility] PPSV23 (PNEUMOVAX) [facility] Influenza High Dose 2020-01-23 Completed [facility] 00:00:00 [facility] Influenza High Dose 2020-01-23 Completed [facility] 00:00:00 [facility] Pneumococcal 2020-01-23 Completed [facility] Polysaccharide, 00:00:00 [place] [facility] PPSV23 (PNEUMOVAX) [facility] Influenza High Dose 2020-01-23 Completed [facility] 00:00:00 [facility] Influenza High Dose 2020-01-23 Completed [facility] 00:00:00 [facility] Pneumococcal 2020-01-23 Completed [facility] Polysaccharide, 00:00:00 [place] [facility] PPSV23 (PNEUMOVAX) [facility] Influenza High Dose 2020-01-23 Completed [facility] 00:00:00 [facility] Influenza High Dose 2020-01-23 Completed [facility] 00:00:00 [facility] Pneumococcal 2020-01-23 Completed [facility] Polysaccharide, 00:00:00 [place] [facility] PPSV23 (PNEUMOVAX) [facility] Influenza High Dose 2020-01-23 Completed [facility] 00:00:00 [facility] Influenza High Dose 2020-01-23 Completed [facility] 00:00:00 [facility] Pneumococcal 2020-01-23 Completed [facility] Polysaccharide, 00:00:00 [place] [facility] PPSV23 (PNEUMOVAX) [facility] Influenza High Dose 2020-01-23 Completed [facility] 00:00:00 [facility] Influenza High Dose 2020-01-23 Completed [facility] 00:00:00 [facility] Pneumococcal 2020-01-23 Completed [facility] Polysaccharide, 00:00:00 [place] [facility] PPSV23 (PNEUMOVAX) [facility] Influenza High Dose 2020-01-23 Completed [facility] 00:00:00 [facility] Influenza High Dose 2020-01-23 Completed [facility] 00:00:00 [facility] Pneumococcal 2020-01-23 Completed [facility] Polysaccharide, 00:00:00 [place] [facility] PPSV23 (PNEUMOVAX) [facility] Influenza High Dose 2020-01-23 Completed [facility] 00:00:00 [facility] Influenza High Dose 2020-01-23 Completed [facility] 00:00:00 [facility] Pneumococcal 2020-01-23 Completed [facility] Polysaccharide, 00:00:00 [place] [facility] PPSV23 (PNEUMOVAX) [facility] Influenza High Dose 2020-01-23 Completed [facility] 00:00:00 [facility] Influenza High Dose 2020-01-23 Completed [facility] 00:00:00 [facility] Pneumococcal 2020-01-23 Completed [facility] Polysaccharide, 00:00:00 [place] [facility] PPSV23 (PNEUMOVAX) [facility] Influenza High Dose 2020-01-23 Completed [facility] 00:00:00 [facility] Influenza High Dose 2020-01-23 Completed [facility] 00:00:00 [facility] Pneumococcal 2020-01-23 Completed [facility] Polysaccharide, 00:00:00 [place] [facility] PPSV23 (PNEUMOVAX) [facility] Influenza High Dose 2020-01-23 Completed [facility] 00:00:00 [facility] Influenza High Dose 2020-01-23 Completed [facility] 00:00:00 [facility] Pneumococcal 2020-01-23 Completed [facility] Polysaccharide, 00:00:00 [place] [facility] PPSV23 (PNEUMOVAX) [facility] Influenza High Dose 2020-01-23 Completed [facility] 00:00:00 [facility] Influenza High Dose 2020-01-23 Completed [facility] 00:00:00 [facility] Pneumococcal 2020-01-23 Completed [facility] Polysaccharide, 00:00:00 [place] [facility] PPSV23 (PNEUMOVAX) [facility] Influenza High Dose 2020-01-23 Completed [facility] 00:00:00 [facility] Influenza High Dose 2020-01-23 Completed [facility] 00:00:00 [facility] Pneumococcal 2020-01-23 Completed [facility] Polysaccharide, 00:00:00 [place] [facility] PPSV23 (PNEUMOVAX) [facility] Influenza High Dose 2020-01-23 Completed [facility] 00:00:00 [facility] Influenza High Dose 2020-01-23 Completed [facility] 00:00:00 [facility] Pneumococcal 2020-01-23 Completed [facility] Polysaccharide, 00:00:00 [place] [facility] PPSV23 (PNEUMOVAX) [facility] Influenza High Dose 2020-01-23 Completed [facility] 00:00:00 [facility] Influenza High Dose 2020-01-23 Completed [facility] 00:00:00 [facility] Pneumococcal 2020-01-23 Completed [facility] Polysaccharide, 00:00:00 [place] [facility] PPSV23 (PNEUMOVAX) [facility] Influenza High Dose 2020-01-23 Completed [facility] 00:00:00 [facility] Influenza High Dose 2020-01-23 Completed [facility] 00:00:00 [facility] Pneumococcal 2020-01-23 Completed [facility] Polysaccharide, 00:00:00 [place] [facility] PPSV23 (PNEUMOVAX) [facility] Influenza High Dose 2020-01-23 Completed [facility] 00:00:00 [facility] Influenza High Dose 2020-01-23 Completed [facility] 00:00:00 [facility] Pneumococcal 2020-01-23 Completed [facility] Polysaccharide, 00:00:00 [place] [facility] PPSV23 (PNEUMOVAX) [facility] Influenza High Dose 2020-01-23 Completed [facility] 00:00:00 [facility] Influenza High Dose 2020-01-23 Completed [facility] 00[facility]00:00 [facility] Pneumococcal 2020-01-23 Completed [facility] Polysaccharide, 00:00:00 [place] [facility] PPSV23 (PNEUMOVAX) [facility] Influenza High Dose 2020-01-23 Completed [facility] 00:00:00 [facility] Influenza High Dose 2020-01-23 Completed [facility] 00:00:00 [facility] Pneumococcal 2020-01-23 Completed [facility] Polysaccharide, 00:00:00 [place] [facility] PPSV23 (PNEUMOVAX) [facility] Influenza High Dose 2020-01-23 Completed [facility] 00:00:00 [facility] Influenza High Dose 2020-01-23 Completed [facility] 00:00:00 [facility] Pneumococcal 2020-01-23 Completed [facility] Polysaccharide, 00:00:00 [place] [facility] PPSV23 (PNEUMOVAX) [facility] Influenza High Dose 2020-01-23 Completed [facility] 00:00:00 [facility] Influenza High Dose 2020-01-23 Completed [facility] 00:00:00 [facility] Pneumococcal 2020-01-23 Completed [facility] Polysaccharide, 00:00:00 [place] [facility] PPSV23 (PNEUMOVAX) [facility] Influenza High Dose 2020-01-23 Completed [facility] 00:00:00 [facility] Influenza High Dose 2020-01-23 Completed [facility] 00:00:00 [facility] Pneumococcal 2020-01-23 Completed [facility] Polysaccharide, 00:00:00 [place] [facility] PPSV23 (PNEUMOVAX) [facility] Influenza High Dose 2020-01-23 Completed [facility] 00:00:00 [facility] Influenza High Dose 2020-01-23 Completed [facility] 00:00:00 [facility] Pneumococcal 2020-01-23 Completed [facility] Polysaccharide, 00:00:00 [place] [facility] PPSV23 (PNEUMOVAX) [facility] Influenza High Dose 2020-01-23 Completed [facility] 00:00:00 [facility] Influenza High Dose 2020-01-23 Completed [facility] 00:00:00 [facility] Pneumococcal 2020-01-23 Completed [facility] Polysaccharide, 00:00:00 [place] [facility] PPSV23 (PNEUMOVAX) [facility] Influenza High Dose 2020-01-23 Completed [facility] 00:00:00 [facility] Influenza High Dose 2020-01-23 Completed [facility] 00:00:00 [facility] Pneumococcal 2020-01-23 Completed [facility] Polysaccharide, 00:00:00 [place] [facility] PPSV23 (PNEUMOVAX) [facility] Influenza High Dose 2020-01-23 Completed [facility] 00:00:00 [facility] Influenza High Dose 2020-01-23 Completed [facility] 00:00:00 [facility] Pneumococcal 2020-01-23 Completed [facility] Polysaccharide, 00:00:00 [place] [facility] PPSV23 (PNEUMOVAX) [facility] Influenza High Dose 2020-01-23 Completed [facility] 00:00:00 [facility] Influenza High Dose 2020-01-23 Completed [facility] 00:00:00 [facility] Pneumococcal 2020-01-23 Completed [facility] Polysaccharide, 00:00:00 [place] [facility] PPSV23 (PNEUMOVAX) [facility] Influenza High Dose 2020-01-23 Completed [facility] 00:00:00 [facility] Influenza High Dose 2020-01-23 Completed [facility] 00:00:00 [facility] Pneumococcal 2020-01-23 Completed [facility] Polysaccharide, 00:00:00 [place] [facility] PPSV23 (PNEUMOVAX) [facility] Influenza High Dose 2020-01-23 Completed [facility] 00:00:00 [facility] Influenza High Dose 2020-01-23 Completed [facility] 00:00:00 [facility] Pneumococcal 2020-01-23 Completed [facility] Polysaccharide, 00:00:00 [place] [facility] PPSV23 (PNEUMOVAX) [facility] Influenza High Dose 2020-01-23 Completed [facility] 00:00:00 [facility] Influenza High Dose 2020-01-23 Completed [facility] 00:00:00 [facility] Pneumococcal 2020-01-23 Completed [facility] Polysaccharide, 00:00:00 [place] [facility] PPSV23 (PNEUMOVAX) [facility] Influenza High Dose 2020-01-23 Completed [facility] 00:00:00 [facility] Influenza High Dose 2020-01-23 Completed [facility] 00:00:00 [facility] Pneumococcal 2020-01-23 Completed [facility] Polysaccharide, 00:00:00 [place] [facility] PPSV23 (PNEUMOVAX) [facility] Influenza High Dose 2020-01-23 Completed [facility] 00:00:00 [facility] Influenza High Dose 2020-01-23 Completed [facility] 00:00:00 [facility] Pneumococcal 2020-01-23 Completed [facility] Polysaccharide, 00:00:00 [place] [facility] PPSV23 (PNEUMOVAX) [facility] Influenza High Dose 2020-01-23 Completed [facility] 00:00:00 [facility] Influenza High Dose 2020-01-23 Completed [facility] 00:00:00 [facility] Pneumococcal 2020-01-23 Completed [facility] Polysaccharide, 00:00:00 [place] [facility] PPSV23 (PNEUMOVAX) [facility] Influenza High Dose 2020-01-23 Completed [facility] 00:00:00 [facility] Influenza High Dose 2020-01-23 Completed [facility] 00:00:00 [facility] Pneumococcal 2020-01-23 Completed [facility] Polysaccharide, 00:00:00 [place] [facility] PPSV23 (PNEUMOVAX) [facility] Influenza High Dose 2020-01-23 Completed [facility] 00:00:00 [facility] Influenza High Dose 2020-01-23 Completed [facility] 00:00:00 [facility] Pneumococcal 2020-01-23 Completed [facility] Polysaccharide, 00:00:00 [place] [facility] PPSV23 (PNEUMOVAX) [facility] Influenza High Dose 2020-01-23 Completed [facility] 00:00:00 [facility] Influenza High Dose 2020-01-23 Completed [facility] 00:00:00 [facility] Pneumococcal 2020-01-23 Completed [facility] Polysaccharide, 00:00:00 [place] [facility] PPSV23 (PNEUMOVAX) [facility] Influenza High Dose 2020-01-23 Completed [facility] 00:00:00 [facility] Influenza High Dose 2020-01-23 Completed [facility] 00:00:00 [facility] Pneumococcal 2020-01-23 Completed [facility] Polysaccharide, 00:00:00 [place] [facility] PPSV23 (PNEUMOVAX) [facility] Influenza High Dose 2020-01-23 Completed [facility] 00:00:00 [facility] Influenza High Dose 2020-01-23 Completed [facility] 00:00:00 [facility] Pneumococcal 2020-01-23 Completed [facility] Polysaccharide, 00:00:00 [place] [facility] PPSV23 (PNEUMOVAX) [facility] Influenza High Dose 2020-01-23 Completed [facility] 00:00:00 [facility] Influenza High Dose 2020-01-23 Completed [facility] 00:00:00 [facility] Pneumococcal 2020-01-23 Completed [facility] Polysaccharide, 00:00:00 [place] [facility] PPSV23 (PNEUMOVAX) [facility] Influenza High Dose 2020-01-23 Completed [facility] 00:00:00 [facility] Influenza High Dose 2020-01-23 Completed [facility] 00:00:00 [facility] Pneumococcal 2020-01-23 Completed [facility] Polysaccharide, 00:00:00 [place] [facility] PPSV23 (PNEUMOVAX) [facility] Influenza High Dose 2020-01-23 Completed [facility] 00:00:00 [facility] Influenza High Dose 2020-01-23 Completed [facility] 00:00:00 [facility] Pneumococcal 2020-01-23 Completed [facility] Polysaccharide, 00:00:00 [place] [facility] PPSV23 (PNEUMOVAX) [facility] Influenza High Dose 2020-01-23 Completed [facility] 00:00:00 [facility] Influenza High Dose 2020-01-23 Completed [facility] 00:00:00 [facility] Pneumococcal 2020-01-23 Completed [facility] Polysaccharide, 00:00:00 [place] [facility] PPSV23 (PNEUMOVAX) [facility] Influenza High Dose 2020-01-23 Completed [facility] 00:00:00 [facility] Influenza High Dose 2020-01-23 Completed [facility] 00:00:00 [facility] Pneumococcal 2020-01-23 Completed [facility] Polysaccharide, 00:00:00 [place] [facility] PPSV23 (PNEUMOVAX) [facility] Influenza High Dose 2020-01-23 Completed [facility] 00:00:00 [facility] Influenza High Dose 2020-01-23 Completed [facility] 00:00:00 [facility] Pneumococcal 2020-01-23 Completed [facility] Polysaccharide, 00:00:00 [place] [facility] PPSV23 (PNEUMOVAX) [facility] Influenza High Dose 2020-01-23 Completed [facility] 00:00:00 [facility] Influenza High Dose 2020-01-23 Completed [facility] 00:00:00 [facility] Pneumococcal 2020-01-23 Completed [facility] Polysaccharide, 00:00:00 [place] [facility] PPSV23 (PNEUMOVAX) [facility] Influenza High Dose 2020-01-23 Completed [facility] 00:00:00 [facility] Influenza High Dose 2020-01-23 Completed [facility] 00:00:00 [facility] Pneumococcal 2020-01-23 Completed [facility] Polysaccharide, 00:00:00 [place] [facility] PPSV23 (PNEUMOVAX) [facility] Influenza High Dose 2020-01-23 Completed [facility] 00:00:00 [facility] Influenza High Dose 2020-01-23 Completed [facility] 00:00:00 [facility] Pneumococcal 2020-01-23 Completed [facility] Polysaccharide, 00:00:00 [place] [facility] PPSV23 (PNEUMOVAX) [facility] Influenza High Dose 2020-01-23 Completed [facility] 00:00:00 [facility] Influenza High Dose 2020-01-23 Completed [facility] 00:00:00 [facility] Pneumococcal 2020-01-23 Completed [facility] Polysaccharide, 00:00:00 [place] [facility] PPSV23 (PNEUMOVAX) [facility] Influenza High Dose 2020-01-23 Completed [facility] 00:00:00 [facility] Influenza High Dose 2020-01-23 Completed [facility] 00:00:00 [facility] Pneumococcal 2020-01-23 Completed [facility] Polysaccharide, 00:00:00 [place] [facility] PPSV23 (PNEUMOVAX) [facility] Influenza High Dose 2020-01-23 Completed [facility] 00:00:00 [facility] Influenza High Dose 2020-01-23 Completed [facility] 00:00:00 [facility] Pneumococcal 2020-01-23 Completed [facility] Polysaccharide, 00:00:00 [place] [facility] PPSV23 (PNEUMOVAX) [facility] Influenza High Dose 2020-01-23 Completed [facility] 00:00:00 [facility] Influenza High Dose 2020-01-23 Completed [facility] 00:00:00 [facility] Pneumococcal 2020-01-23 Completed [facility] Polysaccharide, 00:00:00 [place] [facility] PPSV23 (PNEUMOVAX) [facility] Influenza High Dose 2020-01-23 Completed [facility] 00:00:00 [facility] Influenza High Dose 2020-01-23 Completed [facility] 00:00:00 [facility] Pneumococcal 2020-01-23 Completed [facility] Polysaccharide, 00:00:00 [place] [facility] PPSV23 (PNEUMOVAX) [facility] Influenza High Dose 2020-01-23 Completed [facility] 00:00:00 [facility] Influenza High Dose 2020-01-23 Completed [facility] 00:00:00 [facility] Pneumococcal 2020-01-23 Completed [facility] Polysaccharide, 00:00:00 [place] [facility] PPSV23 (PNEUMOVAX) [facility] Influenza High Dose 2020-01-23 Completed [facility] 00:00:00 [facility] Influenza High Dose 2020-01-23 Completed [facility] 00:00:00 [facility] Pneumococcal 2020-01-23 Completed [facility] Polysaccharide, 00:00:00 [place] [facility] PPSV23 (PNEUMOVAX) [facility] Influenza High Dose 2020-01-23 Completed [facility] 00:00:00 [facility] Influenza High Dose 2020-01-23 Completed [facility] 00:00:00 [facility] Pneumococcal 2020-01-23 Completed [facility] Polysaccharide, 00:00:00 [place] [facility] PPSV23 (PNEUMOVAX) [facility] Influenza High Dose 2020-01-23 Completed [facility] 00:00:00 [facility] Influenza High Dose 2020-01-23 Completed [facility] 00:00:00 [facility] Pneumococcal 2020-01-23 Completed [facility] Polysaccharide, 00:00:00 [place] [facility] PPSV23 (PNEUMOVAX) [facility] Influenza High Dose 2020-01-23 Completed [facility] 00:00:00 [facility] Influenza High Dose 2020-01-23 Completed [facility] 00:00:00 [facility] Pneumococcal 2020-01-23 Completed [facility] Polysaccharide, 00:00:00 [place] [facility] PPSV23 (PNEUMOVAX) [facility] Influenza High Dose 2020-01-23 Completed [facility] 00:00:00 [facility] Influenza High Dose 2020-01-23 Completed [facility] 00:00:00 [facility] Pneumococcal 2020-01-23 Completed [facility] Polysaccharide, 00:00:00 [place] [facility] PPSV23 (PNEUMOVAX) [facility] Influenza High Dose 2020-01-23 Completed [facility] 00:00:00 [facility] Influenza High Dose 2020-01-23 Completed [facility] 00:00:00 [facility] Pneumococcal 2020-01-23 Completed [facility] Polysaccharide, 00:00:00 [place] [facility] PPSV23 (PNEUMOVAX) [facility] Influenza High Dose 2020-01-23 Completed [facility] 00:00:00 [facility] Influenza High Dose 2020-01-23 Completed [facility] 00:00:00 [facility] Pneumococcal 2020-01-23 Completed [facility] Polysaccharide, 00:00:00 [place] [facility] PPSV23 (PNEUMOVAX) [facility] Influenza High Dose 2020-01-23 Completed [facility] 00:00:00 [facility] Influenza High Dose 2020-01-23 Completed [facility] 00:00:00 [facility] Pneumococcal 2020-01-23 Completed [facility] Polysaccharide, 00:00:00 [place] [facility] PPSV23 (PNEUMOVAX) [facility] Influenza High Dose 2020-01-23 Completed [facility] 00:00:00 [facility] Influenza High Dose 2020-01-23 Completed [facility] 00:00:00 [facility] Pneumococcal 2020-01-23 Completed [facility] Polysaccharide, 00:00:00 [place] [facility] PPSV23 (PNEUMOVAX) [facility] Influenza High Dose 2020-01-23 Completed [facility] 00:00:00 [facility] Influenza High Dose 2020-01-23 Completed [facility] [facility] 00:00:00 [facility] Pneumococcal 2020-01-23 Completed [facility] Pol[facility], 00:00:00 [place] [facility] PPSV23 (PNEUMOVAX) [facility] Influenza High Dose 2020-01-23 Completed [facility] 00:00:00 [facility] Influenza High Dose 2020-01-23 Completed [facility] 00:00:00 [facility] Pneumococcal 2020-01-23 Completed [facility] Polys[facility], 00:00:00 [place] [facility] PPSV23 (PNEUMOVAX) Branch Influenza High Dose 2020-01-23 Completed [facility] 00:00:00 [facility] Influenza High Dose 2020-01-23 Completed [facility] 00:00:00 [facility] Pneumococcal 2020-01-23 Completed [facility] Pol[facility], 00:00:00 [place] [facility] PPSV23 (PNEUMOVAX) Branch Influenza High Dose 2020-01-23 Completed [facility] 00:00:00 [facility] Influenza High Dose 2020-01-23 Completed [facility] 00:00:00 [facility] Pneumococcal 2020-01-23 Completed [facility] Pol[facility], 00:00:00 [place] [facility] PPSV23 (PNEUMOVAX) [facility] Influenza High Dose 2020-01-23 Completed [facility] 00:00:00 [facility] Influenza High Dose 2020-01-23 Completed [facility] 00:00:00 [facility] Pneumococcal 2020-01-23 Completed [facility] Pol[facility], 00:00:00 [place] [facility] PPSV23 (PNEUMOVAX) Branch Influenza High Dose 2020-01-23 Completed [facility] 00:00:00 [facility] Influenza High Dose 2020-01-23 Completed [facility] 00:00:00 [facility] Pneumococcal 2020-01-23 Completed [facility] Pol[facility], 00:00:00 [place] [facility] PPSV23 (PNEUMOVAX) Branch Influenza High Dose 2020-01-23 Completed [facility] 00:00:00 [facility] Influenza High Dose 2020-01-23 Completed [facility] 00:00:00 [facility] Pneumococcal 2020-01-23 Completed [facility] Pol[facility], 00:00:00 [place] [facility] PPSV23 (PNEUMOVAX) Branch Influenza High Dose 2020-01-23 Completed [facility] 00:00:00 [facility] Influenza High Dose 2020-01-23 Completed [facility] 00:00:00 [facility] Pneumococcal 2020-01-23 Completed [facility] Pol[facility], 00:00:00 [place] [facility] PPSV23 (PNEUMOVAX) Branch Influenza High Dose 2020-01-23 Completed [facility] 00:00:00 [facility] Influenza High Dose 2020-01-23 Completed [facility] 00:00:00 [facility] Pneumococcal 2020-01-23 Completed [facility] Pol[facility], 00:00:00 [place] [facility] PPSV23 (PNEUMOVAX) Branch Influenza High Dose 2020-01-23 Completed [facility] 00:00:00 [facility] Influenza High Dose 2020-01-23 Completed [facility] 00:00:00 [facility] Pneumococcal 2020-01-23 Completed [facility] Pol[facility], 00:00:00 [place] [facility] PPSV23 (PNEUMOVAX) Branch Influenza High Dose 2020-01-23 Completed [facility] 00:00:00 [facility] Influenza High Dose 2020-01-23 Completed [facility] 00:00:00 [facility] Pneumococcal 2020-01-23 Completed [facility] Pol[facility], 00:00:00 [place] [facility] PPSV23 (PNEUMOVAX) Branch Influenza High Dose 2020-01-23 Completed [facility] 00:00:00 [facility] Influenza High Dose 2020-01-23 Completed [facility] 00:00:00 [facility] Pneumococcal 2020-01-23 Completed [facility] Pol[facility], 00:00:00 [place] [facility] PPSV23 (PNEUMOVAX) Branch Influenza High Dose 2020-01-23 Completed [facility] 00:00:00 [facility] Influenza High Dose 2020-01-23 Completed [facility] 00:00:00 [facility] Pneumococcal 2020-01-23 Completed [facility] Pol[facility], 00:00:00 [place] [facility] PPSV23 (PNEUMOVAX) Branch Influenza High Dose 2020-01-23 Completed [facility] 00:00:00 [facility] Influenza High Dose 2020-01-23 Completed [facility] 00:00:00 [facility] Pneumococcal 2020-01-23 Completed [facility] Pol[facility], 00:00:00 [place] [facility] PPSV23 (PNEUMOVAX) Branch Influenza High Dose 2020-01-23 Completed [facility] 00:00:00 [facility] Influenza High Dose 2020-01-23 Completed [facility] 00:00:00 [facility] Pneumococcal 2020-01-23 Completed [facility] Pol[facility], 00:00:00 [place] [facility] PPSV23 (PNEUMOVAX) Branch Influenza High Dose 2020-01-23 Completed [facility] 00:00:00 [facility] Influenza High Dose 2020-01-23 Completed [facility] 00:00:00 [facility] Pneumococcal 2020-01-23 Completed [facility] Pol[facility], 00:00:00 [place] [facility] PPSV23 (PNEUMOVAX) Branch Influenza High Dose 2020-01-23 Completed [facility] 00:00:00 [facility] Influenza High Dose 2020-01-23 Completed [facility] 00:00:00 [facility] Pneumococcal 2020-01-23 Completed [facility] Pol[facility], 00:00:00 [place] [facility] PPSV23 (PNEUMOVAX) Branch Influenza High Dose 2020-01-23 Completed [facility] 00:00:00 [facility] Influenza High Dose 2020-01-23 Completed [facility] 00:00:00 [facility] Pneumococcal 2020-01-23 Completed [facility] Pol[facility], 00:00:00 [place] [facility] PPSV23 (PNEUMOVAX) Branch Influenza High Dose 2020-01-23 Completed [facility] 00:00:00 [facility] Influenza High Dose 2020-01-23 Completed [facility] 00:00:00 [facility] Pneumococcal 2020-01-23 Completed [facility] Pol[facility]accharide, 00:00:00 [place] [facility] PPSV23 (PNEUMOVAX) Branch Influenza High Dose 2020-01-23 Completed [facility] 00:00:00 [facility] Influenza High Dose 2020-01-23 Completed [facility] 00:00:00 [facility] Pneumococcal 2020-01-23 Completed [facility] Pol[facility], 00:00:00 [place] [facility] PPSV23 (PNEUMOVAX) Branch Influenza High Dose 2020-01-23 Completed [facility] 00:00:00 [facility] Influenza High Dose 2020-01-23 Completed [facility] 00:00:00 [facility] Pneumococcal 2020-01-23 Completed [facility] Pol[facility], 00:00:00 [place] [facility] PPSV23 (PNEUMOVAX) Branch Influenza High Dose 2020-01-23 Completed [facility] 00:00:00 [facility] Influenza High Dose 2020-01-23 Completed [facility] 00:00:00 [facility] Pneumococcal 2020-01-23 Completed [facility] Pol[facility], 00:00:00 [place] [facility] PPSV23 (PNEUMOVAX) Branch Influenza High Dose 2020-01-23 Completed [facility] 00:00:00 [facility] Influenza High Dose 2020-01-23 Completed [facility] 00:00:00 [facility] Pneumococcal 2020-01-23 Completed [facility] Pol[facility], 00:00:00 [place] [facility] PPSV23 (PNEUMOVAX) Branch Influenza High Dose 2020-01-23 Completed [facility] 00:00:00 [facility] Influenza High Dose 2020-01-23 Completed [facility] 00:00:00 [facility] Pneumococcal 2020-01-23 Completed [facility] Pol[facility], 00:00:00 [place] [facility] PPSV23 (PNEUMOVAX) Branch Influenza High Dose 2020-01-23 Completed [facility] 00:00:00 [facility] Influenza High Dose 2020-01-23 Completed [facility] 00:00:00 [facility] Pneumococcal 2020-01-23 Completed [facility] Pol[facility], 00:00:00 [place] [facility] PPSV23 (PNEUMOVAX) Branch Influenza High Dose 2020-01-23 Completed [facility] 00:00:00 [facility] Influenza High Dose 2020-01-23 Completed [facility] 00:00:00 [facility] Pneumococcal 2020-01-23 Completed [facility] Pol[facility], 00:00:00 [place] [facility] PPSV23 (PNEUMOVAX) Branch Influenza High Dose 2020-01-23 Completed [facility] 00:00:00 [facility] Influenza High Dose 2020-01-23 Completed [facility] 00:00:00 [facility] Pneumococcal 2020-01-23 Completed [facility] Pol[facility], 00:00:00 [place] [facility] PPSV23 (PNEUMOVAX) Branch Influenza High Dose 2020-01-23 Completed [facility] 00:00:00 [facility] Influenza High Dose 2020-01-23 Completed [facility] 00:00:00 [facility] Pneumococcal 2020-01-23 Completed [facility] Pol[facility], 00:00:00 [place] [facility] PPSV23 (PNEUMOVAX) Branch Influenza High Dose 2020-01-23 Completed [facility] 00:00:00 [facility] Influenza High Dose 2020-01-23 Completed [facility] 00:00:00 [facility] Pneumococcal 2020-01-23 Completed [facility] Pol[facility], 00:00:00 [place] [facility] PPSV23 (PNEUMOVAX) Branch Influenza High Dose 2020-01-23 Completed [facility] 00:00:00 [facility] Influenza High Dose 2020-01-23 Completed [facility] 00:00:00 [facility] Pneumococcal 2020-01-23 Completed [facility] Pol[facility], 00:00:00 [place] [facility] PPSV23 (PNEUMOVAX) Branch Influenza High Dose 2020-01-23 Completed [facility] 00:00:00 [facility] Influenza High Dose 2020-01-23 Completed [facility] 00:00:00 [facility] Pneumococcal 2020-01-23 Completed [facility] Pol[facility], 00:00:00 [place] [facility] PPSV23 (PNEUMOVAX) Branch Influenza High Dose 2020-01-23 Completed [facility] 00:00:00 [facility] Influenza High Dose 2020-01-23 Completed [facility] 00:00:00 [facility] Pneumococcal 2020-01-23 Completed [facility] Pol[facility]accharide, 00:00:00 [place] [facility] PPSV23 (PNEUMOVAX) Branch Influenza High Dose 2020-01-23 Completed [facility] 00:00:00 [facility] Influenza High Dose 2020-01-23 Completed [facility] 00:00:00 [facility] Pneumococcal 2020-01-23 Completed [facility] Pol[facility], 00:00:00 [place] [facility] PPSV23 (PNEUMOVAX) Branch Influenza High Dose 2020-01-23 Completed [facility] 00:00:00 [facility] Influenza High Dose 2020-01-23 Completed [facility] 00:00:00 [facility] Pneumococcal 2020-01-23 Completed [facility] Pol[facility], 00:00:00 [place] [facility] PPSV23 (PNEUMOVAX) Branch Influenza High Dose 2020-01-23 Completed [facility] 00:00:00 [facility] Influenza High Dose 2020-01-23 Completed [facility] 00:00:00 [facility] Pneumococcal 2020-01-23 Completed [facility] Pol[facility], 00:00:00 [place] [facility] PPSV23 (PNEUMOVAX) Branch Influenza High Dose 2020-01-23 Completed [facility] 00:00:00 [facility] Influenza High Dose 2020-01-23 Completed [facility] 00:00:00 [facility] Pneumococcal 2020-01-23 Completed [facility] Pol[facility], 00:00:00 [place] [facility] PPSV23 (PNEUMOVAX) Branch Influenza High Dose 2020-01-23 Completed [facility] 00:00:00 [facility] Influenza High Dose 2020-01-23 Completed [facility] 00:00:00 [facility] Pneumococcal 2020-01-23 Completed [facility] Pol[facility], 00:00:00 [place] [facility] PPSV23 (PNEUMOVAX) Branch Influenza High Dose 2020-01-23 Completed [facility] 00:00:00 [facility] Influenza High Dose 2020-01-23 Completed [facility] 00:00:00 [facility] Pneumococcal 2020-01-23 Completed [facility] Pol[facility], 00:00:00 [place] [facility] PPSV23 (PNEUMOVAX) Branch Influenza High Dose 2020-01-23 Completed [facility] 00:00:00 [facility] Influenza High Dose 2020-01-23 Completed [facility] 00:00:00 [facility] Pneumococcal 2020-01-23 Completed [facility] Pol[facility], 00:00:00 [place] [facility] PPSV23 (PNEUMOVAX) Branch Influenza High Dose 2020-01-23 Completed [facility] 00:00:00 [facility] Influenza High Dose 2020-01-23 Completed [facility] 00:00:00 [facility] Pneumococcal 2020-01-23 Completed [facility] Pol[facility], 00:00:00 [place] [facility] PPSV23 (PNEUMOVAX) Branch Influenza High Dose 2020-01-23 Completed [facility] 00:00:00 [facility] Influenza High Dose 2020-01-23 Completed [facility] 00:00:00 [facility] Pneumococcal 2020-01-23 Completed [facility] Pol[facility], 00:00:00 [place] [facility] PPSV23 (PNEUMOVAX) Branch Influenza High Dose 2020-01-23 Completed [facility] 00:00:00 [facility] Influenza High Dose 2020-01-23 Completed [facility] 00:00:00 [facility] Pneumococcal 2020-01-23 Completed [facility] Pol[facility], 00:00:00 [place] [facility] PPSV23 (PNEUMOVAX) Branch Influenza High Dose 2020-01-23 Completed [facility] 00:00:00 [facility] Influenza High Dose 2020-01-23 Completed [facility] 00:00:00 [facility] Pneumococcal 2020-01-23 Completed [facility] Pol[facility], 00:00:00 [place] [facility] PPSV23 (PNEUMOVAX) Branch Influenza High Dose 2020-01-23 Completed [facility] 00:00:00 [facility] Influenza High Dose 2020-01-23 Completed [facility] 00:00:00 [facility] Pneumococcal 2020-01-23 Completed [facility] Pol[facility], 00:00:00 [place] [facility] PPSV23 (PNEUMOVAX) Branch Influenza High Dose 2020-01-23 Completed [facility] 00:00:00 [facility] Influenza High Dose 2020-01-23 Completed [facility] 00:00:00 [facility] Pneumococcal 2020-01-23 Completed [facility] Pol[facility], 00:00:00 [place] [facility] PPSV23 (PNEUMOVAX) Branch Influenza High Dose 2020-01-23 Completed [facility] 00:00:00 [facility] Influenza High Dose 2020-01-23 Completed [facility] 00:00:00 [facility] Pneumococcal 2020-01-23 Completed [facility] Pol[facility], 00:00:00 [place] [facility] PPSV23 (PNEUMOVAX) Branch Influenza High Dose 2020-01-23 Completed [facility] 00:00:00 [facility] Influenza High Dose 2020-01-23 Completed [facility] 00:00:00 [facility] Pneumococcal 2020-01-23 Completed [facility] Pol[facility], 00:00:00 [place] [facility] PPSV23 (PNEUMOVAX) Branch Influenza High Dose 2020-01-23 Completed [facility] 00:00:00 [facility] Influenza High Dose 2020-01-23 Completed [facility] 00:00:00 [facility] Pneumococcal 2020-01-23 Completed [facility] Pol[facility], 00:00:00 [place] [facility] PPSV23 (PNEUMOVAX) Branch Influenza High Dose 2020-01-23 Completed [facility] 00:00:00 [facility] Influenza High Dose 2020-01-23 Completed [facility] 00:00:00 [facility] Pneumococcal 2020-01-23 Completed [facility] Pol[facility], 00:00:00 [place] [facility] PPSV23 (PNEUMOVAX) Branch Influenza High Dose 2020-01-23 Completed [facility] 00:00:00 [facility] Influenza High Dose 2020-01-23 Completed [facility] 00:00:00 [facility] Pneumococcal 2020-01-23 Completed [facility] Pol[facility], 00:00:00 [place] [facility] PPSV23 (PNEUMOVAX) Branch Influenza High Dose 2020-01-23 Completed [facility] 00:00:00 [facility] Influenza High Dose 2020-01-23 Completed [facility] 00:00:00 [facility] Pneumococcal 2020-01-23 Completed [facility] Pol[facility], 00:00:00 [place] [facility] PPSV23 (PNEUMOVAX) Branch Influenza High Dose 2020-01-23 Completed [facility] 00:00:00 [facility] Influenza High Dose 2020-01-23 Completed [facility] 00:00:00 [facility] Pneumococcal 2020-01-23 Completed [facility] Pol[facility], 00:00:00 [place] [facility] PPSV23 (PNEUMOVAX) Branch Influenza High Dose 2020-01-23 Completed [facility] 00:00:00 [facility] Influenza High Dose 2020-01-23 Completed [facility] 00:00:00 [facility] Pneumococcal 2020-01-23 Completed [facility] Pol[facility], 00:00:00 [place] [facility] PPSV23 (PNEUMOVAX) Branch Influenza High Dose 2020-01-23 Completed [facility] 00:00:00 [facility] Influenza High Dose 2020-01-23 Completed [facility] 00:00:00 [facility] Pneumococcal 2020-01-23 Completed [facility] Pol[facility], 00:00:00 [place] [facility] PPSV23 (PNEUMOVAX) Branch Influenza High Dose 2020-01-23 Completed [facility] 00:00:00 [facility] Influenza High Dose 2020-01-23 Completed [facility] 00:00:00 [facility] Pneumococcal 2020-01-23 Completed [facility] Pol[facility], 00:00:00 [place] [facility] PPSV23 (PNEUMOVAX) Branch Influenza High Dose 2020-01-23 Completed [facility] 00:00:00 [facility] Influenza High Dose 2020-01-23 Completed [facility] 00:00:00 [facility] Pneumococcal 2020-01-23 Completed [facility] Pol[facility], 00:00:00 [place] [facility] PPSV23 (PNEUMOVAX) Branch Influenza High Dose 2020-01-23 Completed [facility] 00:00:00 [facility] Influenza High Dose 2020-01-23 Completed [facility] 00:00:00 [facility] Pneumococcal 2020-01-23 Completed [facility] Pol[facility], 00:00:00 [place] [facility] PPSV23 (PNEUMOVAX) Branch Influenza High Dose 2020-01-23 Completed [facility] 00:00:00 [facility] Influenza High Dose 2020-01-23 Completed [facility] 00:00:00 [facility] Pneumococcal 2020-01-23 Completed [facility] Pol[facility], 00:00:00 [place] [facility] PPSV23 (PNEUMOVAX) Branch Influenza High Dose 2020-01-23 Completed [facility] 00:00:00 [facility] Influenza High Dose 2020-01-23 Completed [facility] 00:00:00 [facility] Pneumococcal 2020-01-23 Completed [facility], 00:00:00 [place] [facility] PPSV23 (PNEUMOVAX) Branch Influenza High Dose 2020-01-23 Completed [facility] 00:00:00 [facility] Influenza High Dose 2020-01-23 Completed [facility] 00:00:00 [facility] Pneumococcal 2020-01-23 Completed [facility] Pol[facility], 00:00:00 [place] [facility] PPSV23 (PNEUMOVAX) Branch Influenza High Dose 2020-01-23 Completed [facility] 00:00:00 [facility] Influenza High Dose 2020-01-23 Completed [facility] 00:00:00 [facility] Pneumococcal 2020-01-23 Completed [facility], 00:00:00 [place] [facility] PPSV23 (PNEUMOVAX) Branch Influenza High Dose 2020-01-23 Completed [facility] 00:00:00 [facility] Influenza High Dose 2020-01-23 Completed [facility] 00:00:00 [facility] Pneumococcal 2020-01-23 Completed [facility], 00:00:00 [place] [facility] PPSV23 (PNEUMOVAX) Branch Influenza High Dose 2020-01-23 Completed [facility] 00:00:00 [facility] Influenza High Dose 2020-01-23 Completed [facility] 00:00:00 [facility] Pneumococcal 2020-01-23 Completed [facility], 00:00:00 [place] [facility] PPSV23 (PNEUMOVAX) Branch Influenza High Dose 2020-01-23 Completed [facility] 00:00:00 [facility] Influenza High Dose 2020-01-23 Completed [facility] 00:00:00 [facility] Pneumococcal 2020-01-23 Completed [facility], 00:00:00 [place] [facility] PPSV23 (PNEUMOVAX) Branch Influenza High Dose 2020-01-23 Completed [facility] 00:00:00 [facility] Influenza High Dose 2020-01-23 Completed [facility] 00:00:00 [facility] Pneumococcal 2020-01-23 Completed [facility], 00:00:00 [place] [facility] PPSV23 (PNEUMOVAX) Branch Influenza High Dose 2020-01-23 Completed [facility] 00:00:00 [facility] Influenza High Dose 2020-01-23 Completed [facility] 00:00:00 [facility] Pneumococcal 2020-01-23 Completed [facility], 00:00:00 [place] [facility] PPSV23 (PNEUMOVAX) Branch Influenza High Dose 2020-01-23 Completed [facility] 00:00:00 [facility] Influenza High Dose 2020-01-23 Completed [facility] 00:00:00 [facility] Pneumococcal 2020-01-23 Completed [facility], 00:00:00 [place] [facility] PPSV23 (PNEUMOVAX) Branch Influenza High Dose 2020-01-23 Completed [facility] 00:00:00 [facility] Influenza High Dose 2020-01-23 Completed [facility] 00:00:00 [facility] Pneumococcal 2020-01-23 Completed [facility], 00:00:00 [place] [facility] PPSV23 (PNEUMOVAX) Branch Influenza High Dose 2020-01-23 Completed [facility] 00:00:00 [facility] Influenza High Dose 2020-01-23 Completed [facility] 00:00:00 [facility] Pneumococcal 2020-01-23 Completed [facility], 00:00:00 [place] [facility] PPSV23 (PNEUMOVAX) Branch Influenza High Dose 2020-01-23 Completed [facility] 00:00:00 [facility] Influenza High Dose 2020-01-23 Completed [facility] 00:00:00 [facility] Pneumococcal 2020-01-23 Completed [facility], 00:00:00 [place] [facility] PPSV23 (PNEUMOVAX) Branch Influenza High Dose 2020-01-23 Completed [facility] 00:00:00 [facility] Influenza High Dose 2020-01-23 Completed [facility] 00:00:00 [facility] Pneumococcal 2020-01-23 Completed [facility], 00:00:00 [place] [facility] PPSV23 (PNEUMOVAX) Branch Influenza High Dose 2020-01-23 Completed [facility] 00:00:00 [facility] Influenza High Dose 2020-01-23 Completed [facility] 00:00:00 [facility] Pneumococcal 2020-01-23 Completed [facility], 00:00:00 [place] [facility] PPSV23 (PNEUMOVAX) Branch Influenza High Dose 2020-01-23 Completed [facility] 00:00:00 [facility] Influenza High Dose 2020-01-23 Completed [facility] 00:00:00 [facility] Pneumococcal 2020-01-23 Completed [facility], 00:00:00 [place] [facility] PPSV23 (PNEUMOVAX) Branch Influenza High Dose 2020-01-23 Completed [facility] 00:00:00 [facility] Influenza High Dose 2020-01-23 Completed [facility] 00:00:00 [facility] Pneumococcal 2020-01-23 Completed [facility], 00:00:00 [place] [facility] PPSV23 (PNEUMOVAX) Branch Influenza High Dose 2020-01-23 Completed [facility] 00:00:00 [facility] Influenza High Dose 2020-01-23 Completed [facility] 00:00:00 [facility] Pneumococcal 2020-01-23 Completed [facility] Pol[facility], 00:00:00 [place] [facility] PPSV23 (PNEUMOVAX) Branch Influenza High Dose 2020-01-23 Completed [facility] 00:00:00 [facility] Influenza High Dose 2020-01-23 Completed [facility] 00:00:00 [facility] Pneumococcal 2020-01-23 Completed [facility] Pol[facility], 00:00:00 [place] [facility] PPSV23 (PNEUMOVAX) Branch Influenza High Dose 2020-01-23 Completed [facility] 00:00:00 [facility] Influenza High Dose 2020-01-23 Com[facility] 00[facility]00 [facility] Pneumococcal 2020-01-23 Completed [facility] Polysaccharide, 00:00:00 [place] [facility] PPSV23 (PNEUMOVAX) Branch Influenza High Dose 2020-01-23 Completed [facility] 00:00:00 [facility] Influenza High Dose 2020-01-23 Completed [facility] 00:00:00 [facility] Pneumococcal 2020-01-23 Completed [facility] Polysaccharide, 00:00:00 [place] [facility] PPSV23 (PNEUMOVAX) Branch Influenza High Dose 2020-01-23 Completed [facility] 00:00:00 [facility] Influenza High Dose 2020-01-23 Completed [facility] 00:00:00 [facility] Pneumococcal 2020-01-23 Completed [facility] Polysaccharide, 00:00:00 [place] [facility] PPSV23 (PNEUMOVAX) Branch Influenza High Dose 2020-01-23 Completed [facility] 00:00:00 [facility] Influenza High Dose 2020-01-23 Completed [facility] 00:00:00 [facility] Pneumococcal 2020-01-23 Completed [facility] Polysaccharide, 00:00:00 [place] [facility] PPSV23 (PNEUMOVAX) Branch Influenza High Dose 2020-01-23 Completed [facility] 00:00:00 [facility] Influenza High Dose 2020-01-23 Completed [facility] 00:00:00 [facility] Pneumococcal 2020-01-23 Completed [facility] Polysaccharide, 00:00:00 [place] [facility] PPSV23 (PNEUMOVAX) Branch Influenza High Dose 2020-01-23 Completed [facility] 00:00:00 [facility] Influenza High Dose 2020-01-23 Completed [facility] 00:00:00 [facility] Pneumococcal 2020-01-23 Completed [facility] Polysaccharide, 00:00:00 [place] [facility] PPSV23 (PNEUMOVAX) Branch Influenza High Dose 2020-01-23 Completed [facility] 00:00:00 [facility] Influenza High Dose 2020-01-23 Completed [facility] 00:00:00 [facility] Pneumococcal 2020-01-23 Completed [facility] Polysaccharide, 00:00:00 [place] [facility] PPSV23 (PNEUMOVAX) Branch Influenza High Dose 2020-01-23 Completed [facility] 00:00:00 [facility] Influenza High Dose 2020-01-23 Completed [facility] 00:00:00 [facility] Pneumococcal 2020-01-23 Completed [facility] Polysaccharide, 00:00:00 [place] [facility] PPSV23 (PNEUMOVAX) Branch Influenza High Dose 2020-01-23 Completed [facility] 00:00:00 [facility] Influenza High Dose 2020-01-23 Completed [facility] 00:00:00 [facility] Pneumococcal 2020-01-23 Completed [facility] Polysaccharide, 00:00:00 [place] [facility] PPSV23 (PNEUMOVAX) Branch Influenza High Dose 2020-01-23 Completed [facility] 00:00:00 [facility] Influenza High Dose 2020-01-23 Completed [facility] 00:00:00 [facility] Pneumococcal 2020-01-23 Completed [facility] Polysaccharide, 00:00:00 [place] [facility] PPSV23 (PNEUMOVAX) Branch Influenza High Dose 2020-01-23 Completed [facility] 00:00:00 [facility] Influenza High Dose 2020-01-23 Completed [facility] 00:00:00 [facility] Pneumococcal 2020-01-23 Completed [facility] Polysaccharide, 00:00:00 [place] [facility] PPSV23 (PNEUMOVAX) Branch Influenza High Dose 2020-01-23 Completed [facility] 00:00:00 [facility] Influenza High Dose 2020-01-23 Completed [facility] 00:00:00 [facility] Pneumococcal 2020-01-23 Completed [facility] Polysaccharide, 00:00:00 [place] [facility] PPSV23 (PNEUMOVAX) Branch Influenza High Dose 2020-01-23 Completed [facility] 00:00:00 [facility] Influenza High Dose 2020-01-23 Completed [facility] 00:00:00 [facility] Pneumococcal 2020-01-23 Completed [facility] Polysaccharide, 00:00:00 [place] [facility] PPSV23 (PNEUMOVAX) Branch Influenza High Dose 2020-01-23 Completed [facility] 00:00:00 [facility] Influenza High Dose 2020-01-23 Completed [facility] 00:00:00 [facility] Pneumococcal 2020-01-23 Completed [facility] Polysaccharide, 00:00:00 [place] [facility] PPSV23 (PNEUMOVAX) Branch Influenza High Dose 2020-01-23 Completed [facility] 00:00:00 [facility] Influenza High Dose 2020-01-23 Completed [facility] 00:00:00 [facility] Pneumococcal 2020-01-23 Completed [facility] Polysaccharide, 00:00:00 [place] [facility] PPSV23 (PNEUMOVAX) Branch Influenza High Dose 2020-01-23 Completed [facility] 00:00:00 [facility] Influenza High Dose 2020-01-23 Completed [facility] 00:00:00 [facility] Pneumococcal 2020-01-23 Completed [facility] Polysaccharide, 00:00:00 [place] [facility] PPSV23 (PNEUMOVAX) Branch Influenza High Dose 2020-01-23 Completed [facility] 00:00:00 [facility] Influenza High Dose 2020-01-23 Completed [facility] 00:00:00 [facility] Pneumococcal 2020-01-23 Completed [facility] Polysaccharide, 00:00:00 [place] [facility] PPSV23 (PNEUMOVAX) Branch Influenza High Dose 2020-01-23 Completed [facility] 00:00:00 [facility] Influenza High Dose 2020-01-23 Completed [facility] 00:00:00 [facility] Pneumococcal 2020-01-23 Completed [facility] Polysaccharide, 00:00:00 [place] [facility] PPSV23 (PNEUMOVAX) Branch Influenza High Dose 2020-01-23 Completed [facility] 00:00:00 [facility] Influenza High Dose 2020-01-23 Completed [facility] 00:00:00 [facility] Pneumococcal 2020-01-23 Completed [facility] Polysaccharide, 00:00:00 [place] [facility] PPSV23 (PNEUMOVAX) Branch Influenza High Dose 2020-01-23 Completed [facility] 00:00:00 [facility] Influenza High Dose 2020-01-23 Completed [facility] 00:00:00 [facility] Pneumococcal 2020-01-23 Completed [facility] Polysaccharide, 00:00:00 [place] [facility] PPSV23 (PNEUMOVAX) Branch Influenza High Dose 2020-01-23 Completed [facility] 00:00:00 [facility] Influenza High Dose 2020-01-23 Completed [facility] 00[facility]00:00 [facility] Pneumococcal 2020-01-23 Completed [facility] Polysaccharide, 00:00:00 [place] [facility] PPSV23 (PNEUMOVAX) Branch Influenza High Dose 2020-01-23 Completed [facility] 00:00:00 [facility] Influenza High Dose 2020-01-23 Completed [facility] 00[facility]00:00 [facility] Pneumococcal 2020-01-23 Completed [facility] Polysaccharide, 00:00:00 [place] [facility] PPSV23 (PNEUMOVAX) Branch Influenza High Dose 2020-01-23 Completed [facility] 00:00:00 [facility] Influenza High Dose 2020-01-23 Completed [facility] 00:00:00 [facility] Pneumococcal 2020-01-23 Completed [facility] Polysaccharide, 00:00:00 [place] [facility] PPSV23 (PNEUMOVAX) Branch Influenza High Dose 2020-01-23 Completed [facility] 00:00:00 [facility] Influenza High Dose 2020-01-23 Completed [facility] 00:00:00 [facility] Pneumococcal 2020-01-23 Completed [facility] Polysaccharide, 00:00:00 [place] [facility] PPSV23 (PNEUMOVAX) Branch Influenza High Dose 2020-01-23 Completed [facility] 00:00:00 [facility] Influenza High Dose 2020-01-23 Completed [facility] 00[facility]00:00 [facility] Pneumococcal 2020-01-23 Completed [facility] Polysaccharide, 00:00:00 [place] [facility] PPSV23 (PNEUMOVAX) Branch Influenza High Dose 2020-01-23 Completed [facility] 00:00:00 [facility] Influenza High Dose 2020-01-23 Completed [facility] 00:00:00 [facility] Pneumococcal 2020-01-23 Completed [facility] Polysaccharide, 00:00:00 [place] [facility] PPSV23 (PNEUMOVAX) Branch Influenza High Dose 2020-01-23 Completed [facility] 00:00:00 [facility] Influenza High Dose 2020-01-23 Completed [facility] 00:00:00 [facility] Pneumococcal 2020-01-23 Completed [facility] Polysaccharide, 00:00:00 [place] [facility] PPSV23 (PNEUMOVAX) Branch Influenza High Dose 2020-01-23 Completed [facility] 00:00:00 [facility] Influenza High Dose 2020-01-23 Completed [facility] 00:00:00 [facility] Pneumococcal 2020-01-23 Completed [facility] Polysaccharide, 00:00:00 [place] [facility] PPSV23 (PNEUMOVAX) Branch Influenza High Dose 2020-01-23 Completed [facility] 00:00:00 [facility] Influenza High Dose 2020-01-23 Completed [facility] 00:00:00 [facility] Pneumococcal 2020-01-23 Completed [facility] Polysaccharide, 00:00:00 [place] [facility] PPSV23 (PNEUMOVAX) Branch Influenza High Dose 2020-01-23 Completed [facility] 00:00:00 [facility] Influenza High Dose 2020-01-23 Completed [facility] 00:00:00 [facility] Pneumococcal 2020-01-23 Completed [facility] Polysaccharide, 00:00:00 [place] [facility] PPSV23 (PNEUMOVAX) Branch Influenza High Dose 2020-01-23 Completed [facility] 00:00:00 [facility] Influenza High Dose 2020-01-23 Completed [facility] 00[facility]00:00 [facility] Pneumococcal 2020-01-23 Completed [facility] Polysaccharide, 00:00:00 [place] [facility] PPSV23 (PNEUMOVAX) Branch Influenza High Dose 2020-01-23 Completed [facility] 00:00:00 [facility] Influenza High Dose 2020-01-23 Completed [facility] 00:00:00 [facility] Pneumococcal 2020-01-23 Completed [facility] Polysaccharide, 00:00:00 [place] [facility] PPSV23 (PNEUMOVAX) Branch Influenza High Dose 2020-01-23 Completed [facility] 00:00:00 [facility] Influenza High Dose 2020-01-23 Completed [facility] 00:00:00 [facility] Pneumococcal 2020-01-23 Completed [facility] Polysaccharide, 00:00:00 [place] [facility] PPSV23 (PNEUMOVAX) Branch Influenza High Dose 2020-01-23 Completed [facility] 00:00:00 [facility] Influenza High Dose 2020-01-23 Completed [facility] 00:00:00 [facility] Pneumococcal 13 2018-12-08 Completed [facility]it y of Conjugate, PCV13 00:00:00 [facility] dical (Prevnar 13) Branch Pneumococcal 13 2018-12-08 Completed [facility] Conjugate, PCV13 00:00:00 [place] [facility] (Prevnar 13) Branch Pneumococcal 13 2018-12-08 Completed [facility] Conjugate, PCV13 00:00:00 [place] [facility] (Prevnar 13) Branch Pneumococcal 13 2018-12-08 Completed [facility] Conjugate, PCV13 00:00:00 [place] [facility] (Prevnar 13) Branch Pneumococcal 13 2018-12-08 Completed [facility] Conjugate, PCV13 00:00:00 [place] [facility] (Prevnar 13) Branch Pneumococcal 13 2018-12-08 Completed [facility] Conjugate, PCV13 00:00:00 [place] [facility] (Prevnar 13) Branch Pneumococcal 13 2018-12-08 Completed [facility] Conjugate, PCV13 00:00:00 [place] [facility] (Prevnar 13) Branch Pneumococcal 13 2018-12-08 Completed [facility] Conjugate, PCV13 00:00:00 [place] [facility] (Prevnar 13) Branch Pneumococcal 13 2018-12-08 Completed [facility] Conjugate, PCV13 00:00:00 [place] [facility] (Prevnar 13) Branch Pneumococcal 13 2018-12-08 Completed [facility] Conjugate, PCV13 00:00:00 [place] [facility] (Prevnar 13) Branch Pneumococcal 13 2018-12-08 Completed [facility] Conjugate, PCV13 00:00:00 [place] [facility] (Prevnar 13) Branch Pneumococcal 13 2018-12-08 Completed [facility] Conjugate, PCV13 00:00:00 [place] [facility] (Prevnar 13) Branch Pneumococcal 13 2018-12-08 Completed [facility] Conjugate, PCV13 00:00:00 [place] [facility] (Prevnar 13) Branch Pneumococcal 13 2018-12-08 Completed [facility] Conjugate, PCV13 00:00:00 [place] [facility] (Prevnar 13) Branch Pneumococcal 13 2018-12-08 Completed [facility] Conjugate, PCV13 00:00:00 [place] [facility] (Prevnar 13) Branch Pneumococcal 13 2018-12-08 Completed [facility] Conjugate, PCV13 00:00:00 [place] [facility] (Prevnar 13) Branch Pneumococcal 13 2018-12-08 Completed [facility] Conjugate, PCV13 00:00:00 [place] [facility] (Prevnar 13) Branch Pneumococcal 13 2018-12-08 Completed [facility] Conjugate, PCV13 00:00:00 [place] [facility] (Prevnar 13) Branch Pneumococcal 13 2018-12-08 Completed [facility] Conjugate, PCV13 00:00:00 [place] [facility] (Prevnar 13) Branch Pneumococcal 13 2018-12-08 Completed [facility] Conjugate, PCV13 00:00:00 [place] [facility] (Prevnar 13) Branch Pneumococcal 13 2018-12-08 Completed [facility] Conjugate, PCV13 00:00:00 [place] [facility] (Prevnar 13) Branch Pneumococcal 13 2018-12-08 Completed [facility] Conjugate, PCV13 00:00:00 [place] [facility] (Prevnar 13) Branch Pneumococcal 13 2018-12-08 Completed [facility] Conjugate, PCV13 00:00:00 [place] [facility] (Prevnar 13) Branch Pneumococcal 13 2018-12-08 Completed [facility] Conjugate, PCV13 00:00:00 [place] [facility] (Prevnar 13) Branch Pneumococcal 13 2018-12-08 Completed [facility] Conjugate, PCV13 00:00:00 [place] [facility] (Prevnar 13) Branch Pneumococcal 13 2018-12-08 Completed [facility] Conjugate, PCV13 00:00:00 [place] [facility] (Prevnar 13) Branch Pneumococcal 13 2018-12-08 Completed [facility] Conjugate, PCV13 00:00:00 [place] [facility] (Prevnar 13) Branch Pneumococcal 13 2018-12-08 Completed [facility] Conjugate, PCV13 00:00:00 [place] [facility] (Prevnar 13) Branch Pneumococcal 13 2018-12-08 Completed [facility] Conjugate, PCV13 00:00:00 [place] [facility] (Prevnar 13) Branch Pneumococcal 13 2018-12-08 Completed [facility] Conjugate, PCV13 00:00:00 [place] [facility] (Prevnar 13) Branch Pneumococcal 13 2018-12-08 Completed [facility] of Conjugate, PCV13 00:00:00 [place] [facility] (Prevnar 13) Branch Pneumococcal 13 2018-12-08 Completed [facility] Conjugate, PCV13 00:00:00 [place] [facility] (Prevnar 13) Branch Pneumococcal 13 2018-12-08 Completed [facility] Conjugate, PCV13 00:00:00 [place] [facility] (Prevnar 13) Branch Pneumococcal 13 2018-12-08 Completed [facility] Conjugate, PCV13 00:00:00 [place] [facility] (Prevnar 13) Branch Pneumococcal 13 2018-12-08 Completed [facility] Conjugate, PCV13 00:00:00 [place] [facility] (Prevnar 13) Branch Pneumococcal 13 2018-12-08 Completed [facility] Conjugate, PCV13 00:00:00 [place] [facility] (Prevnar 13) Branch Pneumococcal 13 2018-12-08 Completed [facility] of Conjugate, PCV13 00:00:00 [place] [facility] (Prevnar 13) Branch Pneumococcal 13 2018-12-08 Completed [facility] of Conjugate, PCV13 00:00:00 [place] [facility] (Prevnar 13) Branch Pneumococcal 13 2018-12-08 Completed [facility] of Conjugate, PCV13 00:00:00 [place] [facility] (Prevnar 13) Branch Pneumococcal 13 2018-12-08 Completed [facility] of Conjugate, PCV13 00:00:00 [place] [facility] (Prevnar 13) Branch Pneumococcal 13 2018-12-08 Completed [facility] of Conjugate, PCV13 00:00:00 [place] [facility] (Prevnar 13) Branch Pneumococcal 13 2018-12-08 Completed [facility] of Conjugate, PCV13 00:00:00 [place] [facility] (Prevnar 13) Branch Pneumococcal 13 2018-12-08 Completed [facility] of Conjugate, PCV13 00:00:00 [place] [facility] (Prevnar 13) Branch Pneumococcal 13 2018-12-08 Completed [facility] of Conjugate, PCV13 00:00:00 [place] [facility] (Prevnar 13) Branch Pneumococcal 13 2018-12-08 Completed [facility] of Conjugate, PCV13 00:00:00 [place] [facility] (Prevnar 13) Branch Pneumococcal 13 2018-12-08 Completed [facility] of Conjugate, PCV13 00:00:00 [place] [facility] (Prevnar 13) Branch Pneumococcal 13 2018-12-08 Completed [facility] Conjugate, PCV13 00:00:00 [place] [facility] (Prevnar 13) Branch Pneumococcal 13 2018-12-08 Completed [facility] Conjugate, PCV13 00:00:00 [place] [facility] (Prevnar 13) Branch Pneumococcal 13 2018-12-08 Completed [facility] of Conjugate, PCV13 00:00:00 [place] [facility] (Prevnar 13) Branch Pneumococcal 13 2018-12-08 Completed [facility] Conjugate, PCV13 00:00:00 [place] [facility] (Prevnar 13) Branch Pneumococcal 13 2018-12-08 Completed [facility] of Conjugate, PCV13 00:00:00 [place] [facility] (Prevnar 13) Branch Pneumococcal 13 2018-12-08 Completed [facility] Conjugate, PCV13 00:00:00 [place] [facility] (Prevnar 13) Branch Pneumococcal 13 2018-12-08 Completed [facility] Conjugate, PCV13 00:00:00 [place] [facility] (Prevnar 13) Branch Pneumococcal 13 2018-12-08 Completed [facility] Conjugate, PCV13 00:00:00 [place] [facility] (Prevnar 13) Branch Pneumococcal 13 2018-12-08 Completed [facility] Conjugate, PCV13 00:00:00 [place] [facility] (Prevnar 13) Branch Pneumococcal 13 2018-12-08 Completed [facility] Conjugate, PCV13 00:00:00 [place] [facility] (Prevnar 13) Branch Pneumococcal 13 2018-12-08 Completed [facility] Conjugate, PCV13 00:00:00 [place] [facility] (Prevnar 13) Branch Pneumococcal 13 2018-12-08 Completed [facility] Conjugate, PCV13 00:00:00 [place] [facility] (Prevnar 13) Branch Pneumococcal 13 2018-12-08 Completed [facility] Conjugate, PCV13 00:00:00 [place] [facility] (Prevnar 13) Branch Pneumococcal 13 2018-12-08 Completed [facility] of Conjugate, PCV13 00:00:00 [place] [facility] (Prevnar 13) Branch Pneumococcal 13 2018-12-08 Completed [facility] Conjugate, PCV13 00:00:00 [place] [facility] (Prevnar 13) Branch Pneumococcal 13 2018-12-08 Completed [facility] Conjugate, PCV13 00:00:00 [place] [facility] (Prevnar 13) Branch Pneumococcal 13 2018-12-08 Completed [facility] Conjugate, PCV13 00:00:00 [place] [facility] (Prevnar 13) Branch Pneumococcal 13 2018-12-08 Completed [facility] Conjugate, PCV13 00:00:00 [place] [facility] (Prevnar 13) Branch Pneumococcal 13 2018-12-08 Completed [facility] Conjugate, PCV13 00:00:00 [place] [facility] (Prevnar 13) Branch Pneumococcal 13 2018-12-08 Completed [facility] Conjugate, PCV13 00:00:00 [place] [facility] (Prevnar 13) Branch Pneumococcal 13 2018-12-08 Completed [facility] Conjugate, PCV13 00:00:00 [place] [facility] (Prevnar 13) Branch Pneumococcal 13 2018-12-08 Completed [facility] Conjugate, PCV13 00:00:00 [place] [facility] (Prevnar 13) Branch Pneumococcal 13 2018-12-08 Completed [facility] Conjugate, PCV13 00:00:00 [place] [facility] (Prevnar 13) Branch Pneumococcal 13 2018-12-08 Completed [facility] Conjugate, PCV13 00:00:00 [place] [facility] (Prevnar 13) Branch Pneumococcal 13 2018-12-08 Completed [facility] Conjugate, PCV13 00:00:00 [place] [facility] (Prevnar 13) Branch Pneumococcal 13 2018-12-08 Completed [facility] Conjugate, PCV13 00:00:00 [place] [facility] (Prevnar 13) Branch Pneumococcal 13 2018-12-08 Completed [facility] Conjugate, PCV13 00:00:00 [place] [facility] (Prevnar 13) Branch Pneumococcal 13 2018-12-08 Completed [facility] of Conjugate, PCV13 00:00:00 [place] [facility] (Prevnar 13) Branch Pneumococcal 13 2018-12-08 Completed [facility] Conjugate, PCV13 00:00:00 [place] [facility] (Prevnar 13) Branch Pneumococcal 13 2018-12-08 Completed [facility] Conjugate, PCV13 00:00:00 [place] [facility] (Prevnar 13) Branch Pneumococcal 13 2018-12-08 Completed [facility] of Conjugate, PCV13 00:00:00 [place] [facility] (Prevnar 13) Branch Pneumococcal 13 2018-12-08 Completed [facility] Conjugate, PCV13 00:00:00 [place] [facility] (Prevnar 13) Branch Pneumococcal 13 2018-12-08 Completed [facility] of Conjugate, PCV13 00:00:00 [place] [facility] (Prevnar 13) Branch Pneumococcal 13 2018-12-08 Completed [facility] Conjugate, PCV13 00:00:00 [place] [facility] (Prevnar 13) Branch Pneumococcal 13 2018-12-08 Completed [facility] of Conjugate, PCV13 00:00:00 [place] [facility] (Prevnar 13) Branch Pneumococcal 13 2018-12-08 Completed [facility] of Conjugate, PCV13 00:00:00 [place] [facility] (Prevnar 13) Branch Pneumococcal 13 2018-12-08 Completed [facility] of Conjugate, PCV13 00:00:00 [place] [facility] (Prevnar 13) Branch Pneumococcal 13 2018-12-08 Completed [facility] Conjugate, PCV13 00:00:00 [place] [facility] (Prevnar 13) Branch Pneumococcal 13 2018-12-08 Completed [facility] Conjugate, PCV13 00:00:00 [place] [facility] (Prevnar 13) Branch Pneumococcal 13 2018-12-08 Completed [facility] Conjugate, PCV13 00:00:00 [place] [facility] (Prevnar 13) Branch Pneumococcal 13 2018-12-08 Completed [facility] of Conjugate, PCV13 00:00:00 [place] [facility] (Prevnar 13) Branch Pneumococcal 13 2018-12-08 Completed [facility] Conjugate, PCV13 00:00:00 [place] [facility] (Prevnar 13) Branch Pneumococcal 13 2018-12-08 Completed [facility] Conjugate, PCV13 00:00:00 [place] [facility] (Prevnar 13) Branch Pneumococcal 13 2018-12-08 Completed [facility] Conjugate, PCV13 00:00:00 [place] [facility] (Prevnar 13) Branch Pneumococcal 13 2018-12-08 Completed [facility] Conjugate, PCV13 00:00:00 [place] [facility] (Prevnar 13) Branch Pneumococcal 13 2018-12-08 Completed [facility] of Conjugate, PCV13 00:00:00 [place] [facility] (Prevnar 13) Branch Pneumococcal 13 2018-12-08 Completed [facility] of Conjugate, PCV13 00:00:00 [place] [facility] (Prevnar 13) Branch Pneumococcal 13 2018-12-08 Completed [facility] of Conjugate, PCV13 00:00:00 [place] [facility] (Prevnar 13) Branch Pneumococcal 13 2018-12-08 Completed [facility] of Conjugate, PCV13 00:00:00 [place] [facility] (Prevnar 13) Branch Pneumococcal 13 2018-12-08 Completed [facility] of Conjugate, PCV13 00:00:00 [place] [facility] (Prevnar 13) Branch Pneumococcal 13 2018-12-08 Completed [facility] of Conjugate, PCV13 00:00:00 [place] [facility] (Prevnar 13) Branch Pneumococcal 13 2018-12-08 Completed [facility] Conjugate, PCV13 00:00:00 [place] [facility] (Prevnar 13) Branch Pneumococcal 13 2018-12-08 Completed [facility] of Conjugate, PCV13 00:00:00 [place] [facility] (Prevnar 13) Branch Pneumococcal 13 2018-12-08 Completed [facility] of Conjugate, PCV13 00:00:00 [place] [facility] (Prevnar 13) Branch Pneumococcal 13 2018-12-08 Completed [facility] of Conjugate, PCV13 00:00:00 [place] [facility] (Prevnar 13) Branch Pneumococcal 13 2018-12-08 Completed [facility] of Conjugate, PCV13 00:00:00 [place] [facility] (Prevnar 13) Branch Pneumococcal 13 2018-12-08 Completed [facility] of Conjugate, PCV13 00:00:00 [place] [facility] (Prevnar 13) Branch Pneumococcal 13 2018-12-08 Completed [facility] of Conjugate, PCV13 00:00:00 [place] [facility] (Prevnar 13) Branch Pneumococcal 13 2018-12-08 Completed [facility] of Conjugate, PCV13 00:00:00 [place] [facility] (Prevnar 13) Branch Pneumococcal 13 2018-12-08 Completed [facility] of Conjugate, PCV13 00:00:00 [place] [facility] (Prevnar 13) Branch Pneumococcal 13 2018-12-08 Completed [facility] of Conjugate, PCV13 00:00:00 [place] [facility] (Prevnar 13) Branch Pneumococcal 13 2018-12-08 Completed [facility] of Conjugate, PCV13 00:00:00 [place] [facility] (Prevnar 13) Branch Pneumococcal 13 2018-12-08 Completed [facility] of Conjugate, PCV13 00:00:00 [place] [facility] (Prevnar 13) Branch Pneumococcal 13 2018-12-08 Completed [facility] of Conjugate, PCV13 00:00:00 [place] [facility] (Prevnar 13) Branch Pneumococcal 13 2018-12-08 Completed [facility] of Conjugate, PCV13 00:00:00 [place] [facility] (Prevnar 13) Branch Pneumococcal 13 2018-12-08 Completed [facility] of Conjugate, PCV13 00:00:00 [place] [facility] (Prevnar 13) Branch Pneumococcal 13 2018-12-08 Completed [facility] of Conjugate, PCV13 00:00:00 [place] [facility] (Prevnar 13) Branch Pneumococcal 13 2018-12-08 Completed [facility] of Conjugate, PCV13 00:00:00 [place] [facility] (Prevnar 13) Branch Pneumococcal 13 2018-12-08 Completed [facility] of Conjugate, PCV13 00:00:00 [place] [facility] (Prevnar 13) Branch Pneumococcal 13 2018-12-08 Completed [facility] Conjugate, PCV13 00:00:00 [place] [facility] (Prevnar 13) Branch Pneumococcal 13 2018-12-08 Completed [facility] of Conjugate, PCV13 00:00:00 [place] [facility] (Prevnar 13) Branch Pneumococcal 13 2018-12-08 Completed [facility] Conjugate, PCV13 00:00:00 [place] [facility] (Prevnar 13) Branch Pneumococcal 13 2018-12-08 Completed [facility] Conjugate, PCV13 00:00:00 [place] [facility] (Prevnar 13) Branch Pneumococcal 13 2018-12-08 Completed [facility] Con[facility]ate, PCV13 00:00:00 [place] [facility] (Prevnar 13) Branch Pneumococcal 13 2018-12-08 Completed [facility] Conjugate, PCV13 00:00:00 [place] [facility] (Prevnar 13) Branch Pneumococcal 13 2018-12-08 Completed [facility] Conjugate, PCV13 00:00:00 [place] [facility] (Prevnar 13) Branch Pneumococcal 13 2018-12-08 Completed [facility] Conjugate, PCV13 00:00:00 [place] [facility] (Prevnar 13) Branch Pneumococcal 13 2018-12-08 Completed [facility] Conjugate, PCV13 00:00:00 [place] [facility] (Prevnar 13) Branch Pneumococcal 13 2018-12-08 Completed [facility] Conjugate, PCV13 00:00:00 [place] [facility] (Prevnar 13) Branch Pneumococcal 13 2018-12-08 Completed [facility] Conjugate, PCV13 00:00:00 [place] [facility] (Prevnar 13) Branch Pneumococcal 13 2018-12-08 Completed [facility] Conjugate, PCV13 00:00:00 [place] [facility] (Prevnar 13) Branch Pneumococcal 13 2018-12-08 Completed [facility] Conjugate, PCV13 00:00:00 [place] [facility] (Prevnar 13) Branch Pneumococcal 13 2018-12-08 Completed [facility] Conjugate, PCV13 00:00:00 [place] [facility] (Prevnar 13) Branch Pneumococcal 13 2018-12-08 Completed [facility] Conjugate, PCV13 00:00:00 [place] [facility] (Prevnar 13) Branch Pneumococcal 13 2018-12-08 Completed [facility] Conjugate, PCV13 00:00:00 [place] [facility] (Prevnar 13) Branch Pneumococcal 13 2018-12-08 Completed [facility] Conjugate, PCV13 00:00:00 [place] [facility] (Prevnar 13) Branch Pneumococcal 13 2018-12-08 Completed [facility] Conjugate, PCV13 00:00:00 [place] [facility] (Prevnar 13) Branch Pneumococcal 13 2018-12-08 Completed [facility] Conjugate, PCV13 00:00:00 [place] [facility] (Prevnar 13) Branch Pneumococcal 13 2018-12-08 Completed [facility] Conjugate, PCV13 00:00:00 [place] [facility] (Prevnar 13) Branch Pneumococcal 13 2018-12-08 Completed [facility] Conjugate, PCV13 00:00:00 [place] [facility] (Prevnar 13) Branch Pneumococcal 13 2018-12-08 Completed [facility] Conjugate, PCV13 00:00:00 [place] [facility] (Prevnar 13) Branch Pneumococcal 13 2018-12-08 Completed [facility] Conjugate, PCV13 00:00:00 [place] [facility] (Prevnar 13) Branch Pneumococcal 13 2018-12-08 Completed [facility] Conjugate, PCV13 00:00:00 [place] [facility] (Prevnar 13) Branch Pneumococcal 13 2018-12-08 Completed [facility] Conjugate, PCV13 00:00:00 [place] [facility] (Prevnar 13) Branch Pneumococcal 13 2018-12-08 Completed [facility] Conjugate, PCV13 00:00:00 [place] [facility] (Prevnar 13) Branch Pneumococcal 13 2018-12-08 Completed [facility] Conjugate, PCV13 00:00:00 [place] [facility] (Prevnar 13) Branch Pneumococcal 13 2018-12-08 Completed [facility] Conjugate, PCV13 00:00:00 [place] [facility] (Prevnar 13) Branch Pneumococcal 13 2018-12-08 Completed [facility] Conjugate, PCV13 00:00:00 [place] [facility] (Prevnar 13) Branch Pneumococcal 13 2018-12-08 Completed [facility] Conjugate, PCV13 00:00:00 [place] [facility] (Prevnar 13) Branch Pneumococcal 13 2018-12-08 Completed [facility] Conjugate, PCV13 00:00:00 [place] [facility] (Prevnar 13) Branch Pneumococcal 13 2018-12-08 Completed [facility] Conjugate, PCV13 00:00:00 [place] [facility] (Prevnar 13) Branch Pneumococcal 13 2018-12-08 Completed [facility] Conjugate, PCV13 00:00:00 [place] [facility] (Prevnar 13) Branch Pneumococcal 13 2018-12-08 Completed [facility] Conjugate, PCV13 00:00:00 [place] [facility] (Prevnar 13) Branch Pneumococcal 13 2018-12-08 Completed [facility] Conjugate, PCV13 00:00:00 [place] [facility] (Prevnar 13) Branch Pneumococcal 13 2018-12-08 Completed [facility] Conjugate, PCV13 00:00:00 [place] [facility] (Prevnar 13) Branch Pneumococcal 13 2018-12-08 Completed [facility] Conjugate, PCV13 00:00:00 [place] [facility] (Prevnar 13) Branch Pneumococcal 13 2018-12-08 Completed [facility] Conjugate, PCV13 00:00:00 [place] [facility] (Prevnar 13) Branch Pneumococcal 13 2018-12-08 Completed [facility] Conjugate, PCV13 00:00:00 [place] [facility] (Prevnar 13) Branch Pneumococcal 13 2018-12-08 Completed [facility] Conjugate, PCV13 00:00:00 [place] [facility] (Prevnar 13) Branch Pneumococcal 13 2018-12-08 Completed [facility] Conjugate, PCV13 00:00:00 [place] [facility] (Prevnar 13) Branch Pneumococcal 13 2018-12-08 Completed [facility] Conjugate, PCV13 00:00:00 [place] [facility] (Prevnar 13) Branch Pneumococcal 13 2018-12-08 Completed [facility] Conjugate, PCV13 00:00:00 [place] [facility] (Prevnar 13) Branch Pneumococcal 13 2018-12-08 Completed [facility] Conjugate, PCV13 00:00:00 [place] [facility] (Prevnar 13) Branch Pneumococcal 13 2018-12-08 Completed [facility] Conjugate, PCV13 00:00:00 [place] [facility] (Prevnar 13) Branch Pneumococcal 13 2018-12-08 Completed [facility] Conjugate, PCV13 00:00:00 [place] [facility] (Prevnar 13) Branch Pneumococcal 13 2018-12-08 Completed [facility] Conjugate, PCV13 00:00:00 [place] [facility] (Prevnar 13) Branch Pneumococcal 13 2018-12-08 Completed [facility] Conjugate, PCV13 00:00:00 [place] [facility] (Prevnar 13) Branch Pneumococcal 13 2018-12-08 Completed [facility] Conjugate, PCV13 00:00:00 [place] [facility] (Prevnar 13) Branch Pneumococcal 13 2018-12-08 Completed [facility] Conjugate, PCV13 00:00:00 [place] [facility] (Prevnar 13) Branch Pneumococcal 13 2018-12-08 Completed [facility] Conjugate, PCV13 00:00:00 [place] [facility] (Prevnar 13) Branch Pneumococcal 13 2018-12-08 Completed [facility] Conjugate, PCV13 00:00:00 [place] [facility] (Prevnar 13) Branch Pneumococcal 13 2018-12-08 Completed [facility] Conjugate, PCV13 00:00:00 [place] [facility] (Prevnar 13) Branch Pneumococcal 13 2018-12-08 Completed [facility] Conjugate, PCV13 00:00:00 [place] [facility] (Prevnar 13) Branch Pneumococcal 13 2018-12-08 Completed [facility] Conjugate, PCV13 00:00:00 [place] [facility] (Prevnar 13) Branch Pneumococcal 13 2018-12-08 Completed [facility] Conjugate, PCV13 00:00:00 [place] [facility] (Prevnar 13) Branch Pneumococcal 13 2018-12-08 Completed [facility] Conjugate, PCV13 00:00:00 [place] [facility] (Prevnar 13) Branch Pneumococcal 13 2018-12-08 Completed [facility] Conjugate, PCV13 00:00:00 [place] [facility] (Prevnar 13) Branch Pneumococcal 13 2018-12-08 Completed [facility] Conjugate, PCV13 00:00:00 [place] [facility] (Prevnar 13) Branch Pneumococcal 13 2018-12-08 Completed [facility] Conjugate, PCV13 00:00:00 [place] [facility] (Prevnar 13) Branch Pneumococcal 13 2018-12-08 Completed [facility] Conjugate, PCV13 00:00:00 [place] [facility] (Prevnar 13) Branch Pneumococcal 2017-01-[address] [facility] Polysaccharide 00:00:00 [facility] (Pneumovax) Pneumococcal 2017-01-17 Completed [facility] Polysaccharide, 00:00:00 [place] [facility] PPSV23 (PNEUMOVAX) Branch Pneumococcal 2017-01-17 Completed [facility] Polysaccharide, 00:00:00 [place] [facility] PPSV23 (PNEUMOVAX) Branch Pneumococcal 2017-01-17 Completed [facility] Polysaccharide, 00:00:00 [place] [facility] PPSV23 (PNEUMOVAX) Branch Pneumococcal 2017-01-17 Completed [facility] Polysaccharide, 00:00:00 [place] [facility] PPSV23 (PNEUMOVAX) Branch Pneumococcal 2017-01-17 Completed [facility] Polysaccharide, 00:00:00 [place] [facility] PPSV23 (PNEUMOVAX) Branch Pneumococcal 2017-01-17 Completed [facility] Polysaccharide, 00:00:00 [place] [facility] PPSV23 (PNEUMOVAX) Branch Pneumococcal 2017-01-17 Completed [facility] Polysaccharide, 00:00:00 [place] [facility] PPSV23 (PNEUMOVAX) Branch Pneumococcal 2017-01-17 Completed [facility] Polysaccharide, 00:00:00 [place] [facility] PPSV23 (PNEUMOVAX) Branch Pneumococcal 2017-01-17 Completed [facility] Polysaccharide, 00:00:00 [place] [facility] PPSV23 (PNEUMOVAX) Branch Pneumococcal 2017-01-17 Completed [facility] Polysaccharide, 00:00:00 [place] [facility] PPSV23 (PNEUMOVAX) Branch Pneumococcal 2017-01-17 Completed [facility] Polysaccharide, 00:00:00 [place] [facility] PPSV23 (PNEUMOVAX) Branch Pneumococcal 2017-01-17 Completed [facility] Polysaccharide, 00:00:00 [place] [facility] PPSV23 (PNEUMOVAX) Branch Pneumococcal 2017-01-17 Completed [facility] Polysaccharide, 00:00:00 [place] [facility] PPSV23 (PNEUMOVAX) Branch Pneumococcal 2017-01-17 Completed [facility] Polysaccharide, 00:00:00 [place] [facility] PPSV23 (PNEUMOVAX) Branch Pneumococcal 2017-01-17 Completed [facility] Polysaccharide, 00:00:00 [place] [facility] PPSV23 (PNEUMOVAX) Branch Pneumococcal 2017-01-17 Completed [facility] Polysaccharide, 00:00:00 [place] [facility] PPSV23 (PNEUMOVAX) Branch Pneumococcal 2017-01-17 Completed [facility] Polysaccharide, 00:00:00 [place] [facility] PPSV23 (PNEUMOVAX) Branch Pneumococcal 2017-01-17 Completed [facility] Polysaccharide, 00:00:00 [place] [facility] PPSV23 (PNEUMOVAX) Branch Pneumococcal 2017-01-17 Completed [facility] Polysaccharide, 00:00:00 [place] [facility] PPSV23 (PNEUMOVAX) Branch Pneumococcal 2017-01-17 Completed [facility] Polysaccharide, 00:00:00 [place] [facility] PPSV23 (PNEUMOVAX) Branch Pneumococcal 2017-01-17 Completed [facility] Polysaccharide, 00:00:00 [place] [facility] PPSV23 (PNEUMOVAX) Branch Pneumococcal 2017-01-17 Completed [facility] Polysaccharide, 00:00:00 [place] [facility] PPSV23 (PNEUMOVAX) Branch Pneumococcal 2017-01-17 Completed [facility] Polysaccharide, 00:00:00 [place] [facility] PPSV23 (PNEUMOVAX) Branch Pneumococcal 2017-01-17 Completed [facility] Polysaccharide, 00:00:00 [place] [facility] PPSV23 (PNEUMOVAX) Branch Pneumococcal 2017-01-17 Completed [facility] Polysaccharide, 00:00:00 [place] [facility] PPSV23 (PNEUMOVAX) Branch Pneumococcal 2017-01-17 Completed [facility] Polysaccharide, 00:00:00 [place] [facility] PPSV23 (PNEUMOVAX) Branch Pneumococcal 2017-01-17 Completed [facility] Polysaccharide, 00:00:00 [place] [facility] PPSV23 (PNEUMOVAX) Branch Pneumococcal 2017-01-17 Completed [facility] Polysaccharide, 00:00:00 [place] [facility] PPSV23 (PNEUMOVAX) Branch Pneumococcal 2017-01-17 Completed [facility] Polysaccharide, 00:00:00 [place] [facility] PPSV23 (PNEUMOVAX) Branch Pneumococcal 2017-01-17 Completed [facility] Polysaccharide, 00:00:00 [place] [facility] PPSV23 (PNEUMOVAX) Branch Pneumococcal 2017-01-17 Completed [facility] Polysaccharide, 00:00:00 [place] [facility] PPSV23 (PNEUMOVAX) Branch Pneumococcal 2017-01-17 Completed [facility] Polysaccharide, 00:00:00 [place] [facility] PPSV23 (PNEUMOVAX) Branch Pneumococcal 2017-01-17 Completed [facility] Polysaccharide, 00:00:00 [place] [facility] PPSV23 (PNEUMOVAX) Branch Pneumococcal 2017-01-17 Completed [facility] Polysaccharide, 00:00:00 [place] [facility] PPSV23 (PNEUMOVAX) Branch Pneumococcal 2017-01-17 Completed [facility] Polysaccharide, 00:00:00 [place] [facility] PPSV23 (PNEUMOVAX) Branch Pneumococcal 2017-01-17 Completed [facility] Polysaccharide, 00:00:00 [place] [facility] PPSV23 (PNEUMOVAX) Branch Pneumococcal 2017-01-17 Completed [facility] Polysaccharide, 00:00:00 [place] [facility] PPSV23 (PNEUMOVAX) Branch Pneumococcal 2017-01-17 Completed [facility] Polysaccharide, 00:00:00 [place] [facility] PPSV23 (PNEUMOVAX) Branch Pneumococcal 2017-01-17 Completed [facility] Polysaccharide, 00:00:00 [place] [facility] PPSV23 (PNEUMOVAX) Branch Pneumococcal 2017-01-17 Completed [facility] Polysaccharide, 00:00:00 [place] [facility] PPSV23 (PNEUMOVAX) Branch Pneumococcal 2017-01-17 Completed [facility] Polysaccharide, 00:00:00 [place] [facility] PPSV23 (PNEUMOVAX) Branch Pneumococcal 2017-01-17 Completed [facility] Polysaccharide, 00:00:00 [place] [facility] PPSV23 (PNEUMOVAX) Branch Pneumococcal 2017-01-17 Completed [facility] Polysaccharide, 00:00:00 [place] [facility] PPSV23 (PNEUMOVAX) Branch Pneumococcal 2017-01-17 Completed [facility] Polysaccharide, 00:00:00 [place] [facility] PPSV23 (PNEUMOVAX) Branch Pneumococcal 2017-01-17 Completed [facility] Polysaccharide, 00:00:00 [place] [facility] PPSV23 (PNEUMOVAX) Branch Pneumococcal 2017-01-17 Completed [facility] Polysaccharide, 00:00:00 [place] [facility] PPSV23 (PNEUMOVAX) Branch Pneumococcal 2017-01-17 Completed [facility] Polysaccharide, 00:00:00 [place] [facility] PPSV23 (PNEUMOVAX) Branch Pneumococcal 2017-01-17 Completed [facility] Polysaccharide, 00:00:00 [place] [facility] PPSV23 (PNEUMOVAX) Branch Pneumococcal 2017-01-17 Completed [facility] Polysaccharide, 00:00:00 [place] [facility] PPSV23 (PNEUMOVAX) Branch Pneumococcal 2017-01-17 Completed [facility] Polysaccharide, 00:00:00 [place] [facility] PPSV23 (PNEUMOVAX) Branch Pneumococcal 2017-01-17 Completed [facility] Polysaccharide, 00:00:00 [place] [facility] PPSV23 (PNEUMOVAX) Branch Pneumococcal 2017-01-17 Completed [facility] Polysaccharide, 00:00:00 [place] [facility] PPSV23 (PNEUMOVAX) Branch Pneumococcal 2017-01-17 Completed [facility] Polysaccharide, 00:00:00 [place] [facility] PPSV23 (PNEUMOVAX) Branch Pneumococcal 2017-01-17 Completed [facility] Polysaccharide, 00:00:00 [place] [facility] PPSV23 (PNEUMOVAX) Branch Pneumococcal 2017-01-17 Completed [facility] Polysaccharide, 00:00:00 [place] [facility] PPSV23 (PNEUMOVAX) Branch Pneumococcal 2017-01-17 Completed [facility] Polysaccharide, 00:00:00 [place] [facility] PPSV23 (PNEUMOVAX) Branch Pneumococcal 2017-01-17 Completed [facility] Polysaccharide, 00:00:00 [place] [facility] PPSV23 (PNEUMOVAX) Branch Pneumococcal 2017-01-17 Completed [facility] Polysaccharide, 00:00:00 [place] [facility] PPSV23 (PNEUMOVAX) Branch Pneumococcal 2017-01-17 Completed [facility] Polysaccharide, 00:00:00 [place] [facility] PPSV23 (PNEUMOVAX) Branch Pneumococcal 2017-01-17 Completed [facility] Polysaccharide, 00:00:00 [place] [facility] PPSV23 (PNEUMOVAX) Branch Pneumococcal 2017-01-17 Completed [facility] Polysaccharide, 00:00:00 [place] [facility] PPSV23 (PNEUMOVAX) Branch Pneumococcal 2017-01-17 Completed [facility] Polysaccharide, 00:00:00 [place] [facility] PPSV23 (PNEUMOVAX) Branch Pneumococcal 2017-01-17 Completed [facility] Polysaccharide, 00:00:00 [place] [facility] PPSV23 (PNEUMOVAX) Branch Pneumococcal 2017-01-17 Completed [facility] Polysaccharide, 00:00:00 [place] [facility] PPSV23 (PNEUMOVAX) Branch Pneumococcal 2017-01-17 Completed [facility] Polysaccharide, 00:00:00 [place] [facility] PPSV23 (PNEUMOVAX) Branch Pneumococcal 2017-01-17 Completed [facility] Polysaccharide, 00:00:00 [place] [facility] PPSV23 (PNEUMOVAX) Branch Pneumococcal 2017-01-17 Completed [facility] Polysaccharide, 00:00:00 [place] [facility] PPSV23 (PNEUMOVAX) Branch Pneumococcal 2017-01-17 Completed [facility] Polysaccharide, 00:00:00 [place] [facility] PPSV23 (PNEUMOVAX) Branch Pneumococcal 2017-01-17 Completed [facility] Polysaccharide, 00:00:00 [place] [facility] PPSV23 (PNEUMOVAX) Branch Pneumococcal 2017-01-17 Completed [facility] Polysaccharide, 00:00:00 [place] [facility] PPSV23 (PNEUMOVAX) Branch Pneumococcal 2017-01-17 Completed [facility] Polysaccharide, 00:00:00 [place] [facility] PPSV23 (PNEUMOVAX) Branch Pneumococcal 2017-01-17 Completed [facility] Polysaccharide, 00:00:00 [place] [facility] PPSV23 (PNEUMOVAX) Branch Pneumococcal 2017-01-17 Completed [facility] Polysaccharide, 00:00:00 [place] [facility] PPSV23 (PNEUMOVAX) Branch Pneumococcal 2017-01-17 Completed [facility] Polysaccharide, 00:00:00 [place] [facility] PPSV23 (PNEUMOVAX) Branch Pneumococcal 2017-01-17 Completed [facility] Polysaccharide, 00:00:00 [place] [facility] PPSV23 (PNEUMOVAX) Branch Pneumococcal 2017-01-17 Completed [facility] Polysaccharide, 00:00:00 [place] [facility] PPSV23 (PNEUMOVAX) Branch Pneumococcal 2017-01-17 Completed [facility] Polysaccharide, 00:00:00 [place] [facility] PPSV23 (PNEUMOVAX) Branch Pneumococcal 2017-01-17 Completed [facility] Polysaccharide, 00:00:00 [place] [facility] PPSV23 (PNEUMOVAX) Branch Pneumococcal 2017-01-17 Completed [facility] Polysaccharide, 00:00:00 [place] [facility] PPSV23 (PNEUMOVAX) Branch Pneumococcal 2017-01-17 Completed [facility] Polysaccharide, 00:00:00 [place] [facility] PPSV23 (PNEUMOVAX) Branch Pneumococcal 2017-01-17 Completed [facility] Polysaccharide, 00:00:00 [place] [facility] PPSV23 (PNEUMOVAX) Branch Pneumococcal 2017-01-17 Completed [facility] Polysaccharide, 00:00:00 [place] [facility] PPSV23 (PNEUMOVAX) Branch Pneumococcal 2017-01-17 Completed [facility] Polysaccharide, 00:00:00 [place] [facility] PPSV23 (PNEUMOVAX) Branch Pneumococcal 2017-01-17 Completed [facility] Polysaccharide, 00:00:00 [place] [facility] PPSV23 (PNEUMOVAX) Branch Pneumococcal 2017-01-17 Completed [facility] Polysaccharide, 00:00:00 [place] [facility] PPSV23 (PNEUMOVAX) Branch Pneumococcal 2017-01-17 Completed [facility] Polysaccharide, 00:00:00 [place] [facility] PPSV23 (PNEUMOVAX) Branch Pneumococcal 2017-01-17 Completed [facility] Polysaccharide, 00:00:00 [place] [facility] PPSV23 (PNEUMOVAX) Branch Pneumococcal 2017-01-17 Completed [facility] Polysaccharide, 00:00:00 [place] [facility] PPSV23 (PNEUMOVAX) Branch Pneumococcal 2017-01-17 Completed [facility] Polysaccharide, 00:00:00 [place] [facility] PPSV23 (PNEUMOVAX) Branch Pneumococcal 2017-01-17 Completed [facility] Polysaccharide, 00:00:00 [place] [facility] PPSV23 (PNEUMOVAX) Branch Pneumococcal 2017-01-17 Completed [facility] Polysaccharide, 00:00:00 [place] [facility] PPSV23 (PNEUMOVAX) Branch Pneumococcal 2017-01-17 Completed [facility] Polysaccharide, 00:00:00 [place] [facility] PPSV23 (PNEUMOVAX) Branch Pneumococcal 2017-01-17 Completed [facility] Polysaccharide, 00:00:00 [place] [facility] PPSV23 (PNEUMOVAX) Branch Pneumococcal 2017-01-17 Completed [facility] Polysaccharide, 00:00:00 [place] [facility] PPSV23 (PNEUMOVAX) Branch Pneumococcal 2017-01-17 Completed [facility] Polysaccharide, 00:00:00 [place] [facility] PPSV23 (PNEUMOVAX) Branch Pneumococcal 2017-01-17 Completed [facility] Polysaccharide, 00:00:00 [place] [facility] PPSV23 (PNEUMOVAX) Branch Pneumococcal 2017-01-17 Completed [facility] Polysaccharide, 00:00:00 [place] [facility] PPSV23 (PNEUMOVAX) Branch Pneumococcal 2017-01-17 Completed [facility] Polysaccharide, 00:00:00 [place] [facility] PPSV23 (PNEUMOVAX) Branch Pneumococcal 2017-01-17 Completed [facility] Polysaccharide, 00:00:00 [place] [facility] PPSV23 (PNEUMOVAX) Branch Pneumococcal 2017-01-17 Completed [facility] Polysaccharide, 00:00:00 [place] [facility] PPSV23 (PNEUMOVAX) Branch Pneumococcal 2017-01-17 Completed [facility] Polysaccharide, 00:00:00 [place] [facility] PPSV23 (PNEUMOVAX) Branch Pneumococcal 2017-01-17 Completed [facility] Polysaccharide, 00:00:00 [place] [facility] PPSV23 (PNEUMOVAX) Branch Pneumococcal 2017-01-17 Completed [facility] Polysaccharide, 00:00:00 [place] [facility] PPSV23 (PNEUMOVAX) Branch Pneumococcal 2017-01-17 Completed [facility] Polysaccharide, 00:00:00 [place] [facility] PPSV23 (PNEUMOVAX) Branch Pneumococcal 2017-01-17 Completed [facility] Polysaccharide, 00:00:00 [place] [facility] PPSV23 (PNEUMOVAX) Branch Pneumococcal 2017-01-17 Completed [facility] Polysaccharide, 00:00:00 [place] [facility] PPSV23 (PNEUMOVAX) Branch Pneumococcal 2017-01-17 Completed [facility] Polysaccharide, 00:00:00 [place] [facility] PPSV23 (PNEUMOVAX) Branch Pneumococcal 2017-01-17 Completed [facility] Polysaccharide, 00:00:00 [place] [facility] PPSV23 (PNEUMOVAX) Branch Pneumococcal 2017-01-17 Completed [facility] Polysaccharide, 00:00:00 [place] [facility] PPSV23 (PNEUMOVAX) Branch Pneumococcal 2017-01-17 Completed [facility] Polysaccharide, 00:00:00 [place] [facility] PPSV23 (PNEUMOVAX) Branch Pneumococcal 2017-01-17 Completed [facility] Polysaccharide, 00:00:00 [place] [facility] PPSV23 (PNEUMOVAX) Branch Pneumococcal 2017-01-17 Completed [facility] Polysaccharide, 00:00:00 [place] [facility] PPSV23 (PNEUMOVAX) Branch Pneumococcal 2017-01-17 Completed [facility] Polysaccharide, 00:00:00 [place] [facility] PPSV23 (PNEUMOVAX) Branch Pneumococcal 2017-01-17 Completed [facility] Polysaccharide, 00:00:00 [place] [facility] PPSV23 (PNEUMOVAX) Branch Pneumococcal 2017-01-17 Completed [facility] Polysaccharide, 00:00:00 [place] [facility] PPSV23 (PNEUMOVAX) Branch Pneumococcal 2017-01-17 Completed [facility] Polysaccharide, 00:00:00 [place] [facility] PPSV23 (PNEUMOVAX) Branch Pneumococcal 2017-01-17 Completed [facility] Polysaccharide, 00:00:00 [place] [facility] PPSV23 (PNEUMOVAX) Branch Pneumococcal 2017-01-17 Completed [facility] Polysaccharide, 00:00:00 [place] [facility] PPSV23 (PNEUMOVAX) Branch Pneumococcal 2017-01-17 Completed [facility] Polysaccharide, 00:00:00 [place] [facility] PPSV23 (PNEUMOVAX) Branch Pneumococcal 2017-01-17 Completed [facility] Polysaccharide, 00:00:00 [place] [facility] PPSV23 (PNEUMOVAX) Branch Pneumococcal 2017-01-17 Completed [facility] Polysaccharide, 00:00:00 [place] [facility] PPSV23 (PNEUMOVAX) Branch Pneumococcal 2017-01-17 Completed [facility] Polysaccharide, 00:00:00 [place] [facility] PPSV23 (PNEUMOVAX) Branch Pneumococcal 2017-01-17 Completed [facility] Polysaccharide, 00:00:00 [place] [facility] PPSV23 (PNEUMOVAX) Branch Pneumococcal 2017-01-17 Completed [facility] Polysaccharide, 00:00:00 [place] [facility] PPSV23 (PNEUMOVAX) Branch Pneumococcal 2017-01-17 Completed [facility] Polysaccharide, 00:00:00 [place] [facility] PPSV23 (PNEUMOVAX) Branch Pneumococcal 2017-01-17 Completed [facility] Polysaccharide, 00:00:00 [place] [facility] PPSV23 (PNEUMOVAX) Branch Pneumococcal 2017-01-17 Completed [facility] Polysaccharide, 00:00:00 [place] [facility] PPSV23 (PNEUMOVAX) Branch Pneumococcal 2017-01-17 Completed [facility] Polysaccharide, 00:00:00 [place] [facility] PPSV23 (PNEUMOVAX) Branch Pneumococcal 2017-01-17 Completed [facility] Polysaccharide, 00:00:00 [place] [facility] PPSV23 (PNEUMOVAX) Branch Pneumococcal 2017-01-17 Completed [facility] Polysaccharide, 00:00:00 [place] [facility] PPSV23 (PNEUMOVAX) Branch Pneumococcal 2017-01-17 Completed [facility] Polysaccharide, 00:00:00 [place] [facility] PPSV23 (PNEUMOVAX) Branch Pneumococcal 2017-01-17 Completed [facility] Polysaccharide, 00:00:00 [place] [facility] PPSV23 (PNEUMOVAX) Branch Pneumococcal 2017-01-17 Completed [facility] Polysaccharide, 00:00:00 [place] [facility] PPSV23 (PNEUMOVAX) Branch Pneumococcal 2017-01-17 Completed [facility] Polysaccharide, 00:00:00 [place] [facility] PPSV23 (PNEUMOVAX) Branch Pneumococcal 2017-01-17 Completed [facility] Polysaccharide, 00:00:00 [place] [facility] PPSV23 (PNEUMOVAX) Branch Pneumococcal 2017-01-17 Completed [facility] Polysaccharide, 00:00:00 [place] [facility] PPSV23 (PNEUMOVAX) Branch Pneumococcal 2017-01-17 Completed [facility] Polysaccharide, 00:00:00 [place] [facility] PPSV23 (PNEUMOVAX) Branch Pneumococcal 2017-01-17 Completed [facility] Polysaccharide, 00:00:00 [place] [facility] PPSV23 (PNEUMOVAX) Branch Pneumococcal 2017-01-17 Completed [facility] Polysaccharide, 00:00:00 [place] [facility] PPSV23 (PNEUMOVAX) Branch Pneumococcal 2017-01-17 Completed [facility] Polysaccharide, 00:00:00 [place] [facility] PPSV23 (PNEUMOVAX) Branch Pneumococcal 2017-01-17 Completed [facility] Polysaccharide, 00:00:00 [place] [facility] PPSV23 (PNEUMOVAX) Branch Pneumococcal 2017-01-17 Completed [facility] Polysaccharide, 00:00:00 [place] [facility] PPSV23 (PNEUMOVAX) Branch Pneumococcal 2017-01-17 Completed [facility] Polysaccharide, 00:00:00 [place] [facility] PPSV23 (PNEUMOVAX) Branch Pneumococcal 2017-01-17 Completed [facility] Polysaccharide, 00:00:00 [place] [facility] PPSV23 (PNEUMOVAX) Branch Pneumococcal 2017-01-17 Completed [facility] Polysaccharide, 00:00:00 [place] [facility] PPSV23 (PNEUMOVAX) Branch Pneumococcal 2017-01-17 Completed [facility] Polysaccharide, 00:00:00 [place] [facility] PPSV23 (PNEUMOVAX) Branch Pneumococcal 2017-01-17 Completed [facility] Polysaccharide, 00:00:00 [place] [facility] PPSV23 (PNEUMOVAX) Branch Pneumococcal 2017-01-17 Completed [facility] Polysaccharide, 00:00:00 [place] [facility] PPSV23 (PNEUMOVAX) Branch Pneumococcal 2017-01-17 Completed [facility] Polysaccharide, 00:00:00 [place] [facility] PPSV23 (PNEUMOVAX) Branch Pneumococcal 2017-01-17 Completed [facility] Polysaccharide, 00:00:00 [place] [facility] PPSV23 (PNEUMOVAX) Branch Pneumococcal 2017-01-17 Completed [facility] Polysaccharide, 00:00:00 [place] [facility] PPSV23 (PNEUMOVAX) Branch Pneumococcal 2017-01-17 Completed [facility] Polysaccharide, 00:00:00 [place] [facility] PPSV23 (PNEUMOVAX) Branch Pneumococcal 2017-01-17 Completed [facility]00 [place] [facility] PPSV23 (PNEUMOVAX) Branch Pneumococcal 2017-01-17 Completed [facility], [facility]00 [place] [facility] PPSV23 (PNEUMOVAX) Branch Pneumococcal 2017-01-17 Completed [facility], 00:[facility]:00 [place] [facility] PPSV23 (PNEUMOVAX) Branch Pneumococcal 2017-01-17 Completed [facility], 00:[facility]:00 [place] [facility] PPSV23 (PNEUMOVAX) Branch Pneumococcal 2017-01-17 Completed [facility], 00:00:00 [place] [facility] PPSV23 (PNEUMOVAX) Branch Pneumococcal 2017-01-17 Completed [facility], 00:00:00 [place] [facility] PPSV23 (PNEUMOVAX) Branch Pneumococcal 2017-01-17 Completed [facility], 00:00:00 [place] [facility] PPSV23 (PNEUMOVAX) Branch Pneumococcal 2017-01-17 Completed [facility], 00:00:00 [place] [facility] PPSV23 (PNEUMOVAX) Branch Pneumococcal 2017-01-17 Completed [facility], 00:00:00 [place] [facility] PPSV23 (PNEUMOVAX) Branch Pneumococcal 2017-01-17 Completed [facility], 00:00:00 [place] [facility] PPSV23 (PNEUMOVAX) Branch Pneumococcal 2017-01-17 Completed [facility], 00:00:00 [place] [facility] PPSV23 (PNEUMOVAX) Branch Pneumococcal 2017-01-17 Completed [facility], 00:00:00 [place] [facility] PPSV23 (PNEUMOVAX) Branch Pneumococcal 2017-01-17 Completed [facility], 00:00:00 [place] [facility] PPSV23 (PNEUMOVAX) Branch Pneumococcal 2017-01-17 Completed [facility], 00:00:00 [place] [facility] PPSV23 (PNEUMOVAX) Branch Pneumococcal 2017-01-17 Completed [facility], 00:00:00 [place] [facility] PPSV23 (PNEUMOVAX) Branch Pneumococcal 2017-01-17 Completed [facility], 00:00:00 [place] [facility] PPSV23 (PNEUMOVAX) Branch Pneumococcal 2017-01-17 Completed [facility], 00:00:00 [place] [facility] PPSV23 (PNEUMOVAX) Branch Pneumococcal 2017-01-17 Completed [facility], 00:00:00 [place] [facility] PPSV23 (PNEUMOVAX) Branch Pneumococcal 2017-01-17 Completed [facility], 00:00:00 [place] [facility] PPSV23 (PNEUMOVAX) Branch Pneumococcal 2017-01-17 Completed [facility], 00:00:00 [place] [facility] PPSV23 (PNEUMOVAX) Branch Pneumococcal 2017-01-17 Completed [facility], 00:00:00 [place] [facility] PPSV23 (PNEUMOVAX) Branch Pneumococcal 2017-01-17 Completed [facility], 00:00:00 [place] [facility] PPSV23 (PNEUMOVAX) Branch Pneumococcal 2017-01-17 Completed [facility], 00:00:00 [place] [facility] PPSV23 (PNEUMOVAX) Branch Pneumococcal 2017-01-17 Completed [facility], 00:00:00 [place] [facility] PPSV23 (PNEUMOVAX) Branch Pneumococcal 2017-01-[address] [facility] Polysaccharide 00:00:00 [facility] (Pneumovax) Pneumococcal 2014-04-28 Completed [facility], 00:00:00 [place] [facility] PPSV23 (PNEUMOVAX) Branch Pneumococcal 2014-04-28 Completed [facility], 00:00:00 [place] [facility] PPSV23 (PNEUMOVAX) Branch Pneumococcal 2014-04-28 Completed [facility], 00:00:00 [place] [facility] PPSV23 (PNEUMOVAX) Branch Pneumococcal 2014-04-28 Completed [facility], 00:00:00 [place] [facility] PPSV23 (PNEUMOVAX) Branch Pneumococcal 2014-04-28 Completed [facility], 00:00:00 [place] [facility] PPSV23 (PNEUMOVAX) Branch Pneumococcal 2014-04-28 Completed [facility], 00:00:00 [place] [facility] PPSV23 (PNEUMOVAX) Branch Pneumococcal 2014-04-28 Completed [facility], 00:00:00 [place] [facility] PPSV23 (PNEUMOVAX) Branch Pneumococcal 2014-04-28 Completed [facility], 00:00:00 [place] [facility] PPSV23 (PNEUMOVAX) Branch Pneumococcal 2014-04-28 Completed [facility], 00:00:00 [place] [facility] PPSV23 (PNEUMOVAX) Branch Pneumococcal 2014-04-28 Completed [facility], 00:00:00 [place] [facility] PPSV23 (PNEUMOVAX) Branch Pneumococcal 2014-04-28 Completed [facility], 00:00:00 [place] [facility] PPSV23 (PNEUMOVAX) Branch Pneumococcal 2014-04-28 Completed [facility], 00:00:00 [place] [facility] PPSV23 (PNEUMOVAX) Branch Pneumococcal 2014-04-28 Completed [facility], 00:00:00 [place] [facility] PPSV23 (PNEUMOVAX) Branch Pneumococcal 2014-04-28 Completed [facility], 00:00:00 [place] [facility] PPSV23 (PNEUMOVAX) Branch Pneumococcal 2014-04-28 Completed [facility], 00:00:00 [place] [facility] PPSV23 (PNEUMOVAX) Branch Pneumococcal 2014-04-28 Completed [facility], 00:00:00 [place] [facility] PPSV23 (PNEUMOVAX) Branch Pneumococcal 2014-04-28 Completed [facility], 00:00:00 [place] [facility] PPSV23 (PNEUMOVAX) Branch Pneumococcal 2014-04-28 Completed [facility], 00:00:00 [place] [facility] PPSV23 (PNEUMOVAX) Branch Pneumococcal 2014-04-28 Completed [facility], 00:00:00 [place] [facility] PPSV23 (PNEUMOVAX) Branch Pneumococcal 2014-04-28 Completed [facility], 00:00:00 [place] [facility] PPSV23 (PNEUMOVAX) Branch Pneumococcal 2014-04-28 Completed [facility], 00:00:00 [place] [facility] PPSV23 (PNEUMOVAX) Branch Pneumococcal 2014-04-28 Completed [facility], 00:00:00 [place] [facility] PPSV23 (PNEUMOVAX) Branch Pneumococcal 2014-04-28 Completed [facility], 00:00:00 [place] [facility] PPSV23 (PNEUMOVAX) Branch Pneumococcal 2014-04-28 Completed [facility], 00:00:00 [place] [facility] PPSV23 (PNEUMOVAX) Branch Pneumococcal 2014-04-28 Completed [facility], 00:00:00 [place] [facility] PPSV23 (PNEUMOVAX) Branch Pneumococcal 2014-04-28 Completed [facility], 00:00:00 [place] [facility] PPSV23 (PNEUMOVAX) Branch Pneumococcal 2014-04-28 Completed [facility], 00:00:00 [place] [facility] PPSV23 (PNEUMOVAX) Branch Pneumococcal 2014-04-28 Completed [facility], 00:00:00 [place] [facility] PPSV23 (PNEUMOVAX) Branch Pneumococcal 2014-04-28 Completed [facility], 00:00:00 [place] [facility] PPSV23 (PNEUMOVAX) Branch Pneumococcal 2014-04-28 Completed [facility], 00:00:00 [place] [facility] PPSV23 (PNEUMOVAX) Branch Pneumococcal 2014-04-28 Completed [facility], 00:00:00 [place] [facility] PPSV23 (PNEUMOVAX) Branch Pneumococcal 2014-04-28 Completed [facility], 00:00:00 [place] [facility] PPSV23 (PNEUMOVAX) Branch Pneumococcal 2014-04-28 Completed [facility], 00:00:00 [place] [facility] PPSV23 (PNEUMOVAX) Branch Pneumococcal 2014-04-28 Completed [facility], 00:00:00 [place] [facility] PPSV23 (PNEUMOVAX) Branch Pneumococcal 2014-04-28 Completed [facility], 00:00:00 [place] [facility] PPSV23 (PNEUMOVAX) Branch Pneumococcal 2014-04-28 Completed [facility], 00:00:00 [place] [facility] PPSV23 (PNEUMOVAX) Branch Pneumococcal 2014-04-28 Completed [facility], 00:00:00 [place] [facility] PPSV23 (PNEUMOVAX) Branch Pneumococcal 2014-04-28 Completed [facility], 00:00:00 [place] [facility] PPSV23 (PNEUMOVAX) Branch Pneumococcal 2014-04-28 Completed [facility], 00:00:00 [place] [facility] PPSV23 (PNEUMOVAX) Branch Pneumococcal 2014-04-28 Completed [facility], 00:00:00 [place] [facility] PPSV23 (PNEUMOVAX) Branch Pneumococcal 2014-04-28 Completed [facility], 00:00:00 [place] [facility] PPSV23 (PNEUMOVAX) Branch Pneumococcal 2014-04-28 Completed [facility], 00:00:00 [place] [facility] PPSV23 (PNEUMOVAX) Branch Pneumococcal 2014-04-28 Completed [facility], 00:00:00 [place] [facility] PPSV23 (PNEUMOVAX) Branch Pneumococcal 2014-04-28 Completed [facility], 00:00:00 [place] [facility] PPSV23 (PNEUMOVAX) Branch Pneumococcal 2014-04-28 Completed [facility], 00:00:00 [place] [facility] PPSV23 (PNEUMOVAX) Branch Pneumococcal 2014-04-28 Completed [facility], 00:00:00 [place] [facility] PPSV23 (PNEUMOVAX) Branch Pneumococcal 2014-04-28 Completed [facility], 00:00:00 [place] [facility] PPSV23 (PNEUMOVAX) Branch Pneumococcal 2014-04-28 Completed [facility], 00:00:00 [place] [facility] PPSV23 (PNEUMOVAX) Branch Pneumococcal 2014-04-28 Completed [facility], 00:00:00 [place] [facility] PPSV23 (PNEUMOVAX) Branch Pneumococcal 2014-04-28 Completed [facility] Pol[facility], 00:00:00 [place] [facility] PPSV23 (PNEUMOVAX) Branch Pneumococcal 2014-04-28 Completed [facility], 00:00:00 [place] [facility] PPSV23 (PNEUMOVAX) Branch Pneumococcal 2014-04-28 Completed [facility], 00:00:00 [place] [facility] PPSV23 (PNEUMOVAX) Branch Pneumococcal 2014-04-28 Completed [facility], 00:00:00 [place] [facility] PPSV23 (PNEUMOVAX) Branch Pneumococcal 2014-04-28 Completed [facility], 00:00:00 [place] [facility] PPSV23 (PNEUMOVAX) Branch Pneumococcal 2014-04-28 Completed [facility], 00:00:00 [place] [facility] PPSV23 (PNEUMOVAX) Branch Pneumococcal 2014-04-28 Completed [facility], 00:00:00 [place] [facility] PPSV23 (PNEUMOVAX) Branch Pneumococcal 2014-04-28 Completed [facility], 00:00:00 [place] [facility] PPSV23 (PNEUMOVAX) Branch Pneumococcal 2014-04-28 Completed [facility], 00:00:00 [place] [facility] PPSV23 (PNEUMOVAX) Branch Pneumococcal 2014-04-28 Completed [facility], 00:00:00 [place] [facility] PPSV23 (PNEUMOVAX) Branch Pneumococcal 2014-04-28 Completed [facility], 00:00:00 [place] [facility] PPSV23 (PNEUMOVAX) Branch Pneumococcal 2014-04-28 Completed [facility], 00:00:00 [place] [facility] PPSV23 (PNEUMOVAX) Branch Pneumococcal 2014-04-28 Completed [facility], 00:00:00 [place] [facility] PPSV23 (PNEUMOVAX) Branch Pneumococcal 2014-04-28 Completed [facility] Pol[facility], 00:00:00 [place] [facility] PPSV23 (PNEUMOVAX) Branch Pneumococcal 2014-04-28 Completed [facility], 00:00:00 [place] [facility] PPSV23 (PNEUMOVAX) Branch Pneumococcal 2014-04-28 Completed [facility], 00:00:00 [place] [facility] PPSV23 (PNEUMOVAX) Branch Pneumococcal 2014-04-28 Completed [facility], 00:00:00 [place] [facility] PPSV23 (PNEUMOVAX) Branch Pneumococcal 2014-04-28 Completed [facility], 00:00:00 [place] [facility] PPSV23 (PNEUMOVAX) Branch Pneumococcal 2014-04-28 Completed [facility], 00:00:00 [place] [facility] PPSV23 (PNEUMOVAX) Branch Pneumococcal 2014-04-28 Completed [facility] Pol[facility], 00:00:00 [place] [facility] PPSV23 (PNEUMOVAX) Branch Pneumococcal 2014-04-28 Completed [facility], 00:00:00 [place] [facility] PPSV23 (PNEUMOVAX) Branch Pneumococcal 2014-04-28 Completed [facility] Pol[facility], 00:00:00 [place] [facility] PPSV23 (PNEUMOVAX) Branch Pneumococcal 2014-04-28 Completed [facility], 00:00:00 [place] [facility] PPSV23 (PNEUMOVAX) Branch Pneumococcal 2014-04-28 Completed [facility], 00:00:00 [place] [facility] PPSV23 (PNEUMOVAX) Branch Pneumococcal 2014-04-28 Completed [facility], 00:00:00 [place] [facility] PPSV23 (PNEUMOVAX) Branch Pneumococcal 2014-04-28 Completed [facility], 00:00:00 [place] [facility] PPSV23 (PNEUMOVAX) Branch Pneumococcal 2014-04-28 Completed [facility], 00:00:00 [place] [facility] PPSV23 (PNEUMOVAX) Branch Pneumococcal 2014-04-28 Completed [facility] Pol[facility], 00:00:00 [place] [facility] PPSV23 (PNEUMOVAX) Branch Pneumococcal 2014-04-28 Completed [facility], 00:00:00 [place] [facility] PPSV23 (PNEUMOVAX) Branch Pneumococcal 2014-04-28 Completed [facility], 00:00:00 [place] [facility] PPSV23 (PNEUMOVAX) Branch Pneumococcal 2014-04-28 Completed [facility] Pol[facility], 00:00:00 [place] [facility] PPSV23 (PNEUMOVAX) Branch Pneumococcal 2014-04-28 Completed [facility], 00:00:00 [place] [facility] PPSV23 (PNEUMOVAX) Branch Pneumococcal 2014-04-28 Completed [facility] Pol[facility]accharide, 00:00:00 [place] [facility] PPSV23 (PNEUMOVAX) Branch Pneumococcal 2014-04-28 Completed [facility] Pol[facility]accharide, 00:00:00 [place] [facility] PPSV23 (PNEUMOVAX) Branch Pneumococcal 2014-04-28 Completed [facility] Pol[facility], 00:00:00 [place] [facility] PPSV23 (PNEUMOVAX) Branch Pneumococcal 2014-04-28 Completed [facility] Pol[facility], 00:00:00 [place] [facility] PPSV23 (PNEUMOVAX) Branch Pneumococcal 2014-04-28 Completed [facility] Pol[facility], 00:00:00 [place] [facility] PPSV23 (PNEUMOVAX) Branch Pneumococcal 2014-04-28 Completed [facility], 00:00:00 [place] [facility] PPSV23 (PNEUMOVAX) Branch Pneumococcal 2014-04-28 Completed [facility], 00:00:00 [place] [facility] PPSV23 (PNEUMOVAX) Branch Pneumococcal 2014-04-28 Completed [facility] Pol[facility], 00:00:00 [place] [facility] PPSV23 (PNEUMOVAX) Branch Pneumococcal 2014-04-28 Completed [facility] Pol[facility], 00:00:00 [place] [facility] PPSV23 (PNEUMOVAX) Branch Pneumococcal 2014-04-28 Completed [facility] Pol[facility]accharide, 00:00:00 [place] [facility] PPSV23 (PNEUMOVAX) Branch Pneumococcal 2014-04-28 Completed [facility] Pol[facility], 00:00:00 [place] [facility] PPSV23 (PNEUMOVAX) Branch Pneumococcal 2014-04-28 Completed [facility] Pol[facility], 00:00:00 [place] [facility] PPSV23 (PNEUMOVAX) Branch Pneumococcal 2014-04-28 Completed [facility] Pol[facility], 00:00:00 [place] [facility] PPSV23 (PNEUMOVAX) Branch Pneumococcal 2014-04-28 Completed [facility], 00:00:00 [place] [facility] PPSV23 (PNEUMOVAX) Branch Pneumococcal 2014-04-28 Completed [facility], 00:00:00 [place] [facility] PPSV23 (PNEUMOVAX) Branch Pneumococcal 2014-04-28 Completed [facility] Pol[facility], 00:00:00 [place] [facility] PPSV23 (PNEUMOVAX) Branch Pneumococcal 2014-04-28 Completed [facility], 00:00:00 [place] [facility] PPSV23 (PNEUMOVAX) Branch Pneumococcal 2014-04-28 Completed [facility] Pol[facility], 00:00:00 [place] [facility] PPSV23 (PNEUMOVAX) Branch Pneumococcal 2014-04-28 Completed [facility] Pol[facility], 00:00:00 [place] [facility] PPSV23 (PNEUMOVAX) Branch Pneumococcal 2014-04-28 Completed [facility], 00:00:00 [place] [facility] PPSV23 (PNEUMOVAX) Branch Pneumococcal 2014-04-28 Completed [facility] Pol[facility], 00:00:00 [place] [facility] PPSV23 (PNEUMOVAX) Branch Pneumococcal 2014-04-28 Completed [facility] Pol[facility]accharide, 00:00:00 [place] [facility] PPSV23 (PNEUMOVAX) Branch Pneumococcal 2014-04-28 Completed [facility] Pol[facility], 00:00:00 [place] [facility] PPSV23 (PNEUMOVAX) Branch Pneumococcal 2014-04-28 Completed [facility] Pol[facility], 00:00:00 [place] [facility] PPSV23 (PNEUMOVAX) Branch Pneumococcal 2014-04-28 Completed [facility] Pol[facility], 00:00:00 [place] [facility] PPSV23 (PNEUMOVAX) Branch Pneumococcal 2014-04-28 Completed [facility] Pol[facility], 00:00:00 [place] [facility] PPSV23 (PNEUMOVAX) Branch Pneumococcal 2014-04-28 Completed [facility] Pol[facility], 00:00:00 [place] [facility] PPSV23 (PNEUMOVAX) Branch Pneumococcal 2014-04-28 Completed [facility] Pol[facility], 00:00:00 [place] [facility] PPSV23 (PNEUMOVAX) Branch Pneumococcal 2014-04-28 Completed [facility] Pol[facility]accharide, 00:00:00 [place] [facility] PPSV23 (PNEUMOVAX) Branch Pneumococcal 2014-04-28 Completed [facility] Pol[facility]accharide, 00:00:00 [place] [facility] PPSV23 (PNEUMOVAX) Branch Pneumococcal 2014-04-28 Completed [facility] Pol[facility]accharide, 00:00:00 [place] [facility] PPSV23 (PNEUMOVAX) Branch Pneumococcal 2014-04-28 Completed [facility] Pol[facility]accharide, 00:00:00 [place] [facility] PPSV23 (PNEUMOVAX) Branch Pneumococcal 2014-04-28 Completed [facility] Pol[facility], 00:00:00 [place] [facility] PPSV23 (PNEUMOVAX) Branch Pneumococcal 2014-04-28 Completed [facility] Pol[facility], 00:00:00 [place] [facility] PPSV23 (PNEUMOVAX) Branch Pneumococcal 2014-04-28 Completed [facility] Pol[facility], 00:00:00 [place] [facility] PPSV23 (PNEUMOVAX) Branch Pneumococcal 2014-04-28 Completed [facility], 00:00:00 [place] [facility] PPSV23 (PNEUMOVAX) Branch Pneumococcal 2014-04-28 Completed [facility] Pol[facility], 00:00:00 [place] [facility] PPSV23 (PNEUMOVAX) Branch Pneumococcal 2014-04-28 Completed [facility] Pol[facility]accharide, 00:00:00 [place] [facility] PPSV23 (PNEUMOVAX) Branch Pneumococcal 2014-04-28 Completed [facility] Pol[facility], 00:00:00 [place] [facility] PPSV23 (PNEUMOVAX) Branch Pneumococcal 2014-04-28 Completed [facility] Pol[facility], 00:00:00 [place] [facility] PPSV23 (PNEUMOVAX) Branch Pneumococcal 2014-04-28 Completed [facility] Pol[facility], 00:00:00 [place] [facility] PPSV23 (PNEUMOVAX) Branch Pneumococcal 2014-04-28 Completed [facility] Pol[facility], 00:00:00 [place] [facility] PPSV23 (PNEUMOVAX) Branch Pneumococcal 2014-04-28 Completed [facility] Pol[facility], 00:00:00 [place] [facility] PPSV23 (PNEUMOVAX) Branch Pneumococcal 2014-04-28 Completed [facility] Pol[facility], 00:00:00 [place] [facility] PPSV23 (PNEUMOVAX) Branch Pneumococcal 2014-04-28 Completed [facility] Pol[facility], 00:00:00 [place] [facility] PPSV23 (PNEUMOVAX) Branch Pneumococcal 2014-04-28 Completed [facility] Pol[facility], 00:00:00 [place] [facility] PPSV23 (PNEUMOVAX) Branch Pneumococcal 2014-04-28 Completed [facility] Pol[facility], 00:00:00 [place] [facility] PPSV23 (PNEUMOVAX) Branch Pneumococcal 2014-04-28 Completed [facility] Pol[facility], 00:00:00 [place] [facility] PPSV23 (PNEUMOVAX) Branch Pneumococcal 2014-04-28 Completed [facility] Pol[facility], 00:00:00 [place] [facility] PPSV23 (PNEUMOVAX) Branch Pneumococcal 2014-04-28 Completed [facility] Pol[facility], 00:00:00 [place] [facility] PPSV23 (PNEUMOVAX) Branch Pneumococcal 2014-04-28 Completed [facility] Pol[facility]accharide, 00:00:00 [place] [facility] PPSV23 (PNEUMOVAX) Branch Pneumococcal 2014-04-28 Completed [facility] Pol[facility]accharide, 00:00:00 [place] [facility] PPSV23 (PNEUMOVAX) Branch Pneumococcal 2014-04-28 Completed [facility] Pol[facility], 00:00:00 [place] [facility] PPSV23 (PNEUMOVAX) Branch Pneumococcal 2014-04-28 Completed [facility] Pol[facility]accharide, 00:00:00 [place] [facility] PPSV23 (PNEUMOVAX) Branch Pneumococcal 2014-04-28 Completed [facility] Pol[facility]accharide, 00:00:00 [place] [facility] PPSV23 (PNEUMOVAX) Branch Pneumococcal 2014-04-28 Completed [facility] Pol[facility], 00:00:00 [place] [facility] PPSV23 (PNEUMOVAX) Branch Pneumococcal 2014-04-28 Completed [facility] Pol[facility]accharide, 00:00:00 [place] [facility] PPSV23 (PNEUMOVAX) Branch Pneumococcal 2014-04-28 Completed [facility] Pol[facility]accharide, 00:00:00 [place] [facility] PPSV23 (PNEUMOVAX) Branch Pneumococcal 2014-04-28 Completed [facility] Pol[facility]accharide, 00:00:00 [place] [facility] PPSV23 (PNEUMOVAX) Branch Pneumococcal 2014-04-28 Completed [facility] Pol[facility]accharide, 00:00:00 [place] [facility] PPSV23 (PNEUMOVAX) Branch Pneumococcal 2014-04-28 Completed [facility] Pol[facility]accharide, 00:00:00 [place] [facility] PPSV23 (PNEUMOVAX) Branch Pneumococcal 2014-04-28 Completed [facility] Pol[facility]accharide, 00:00:00 [place] [facility] PPSV23 (PNEUMOVAX) Branch Pneumococcal 2014-04-28 Completed [facility] Pol[facility]accharide, 00:00:00 [place] [facility] PPSV23 (PNEUMOVAX) Branch Pneumococcal 2014-04-28 Completed [facility] Pol[facility]accharide, 00:00:00 [place] [facility] PPSV23 (PNEUMOVAX) Branch Pneumococcal 2014-04-28 Completed [facility] Pol[facility]accharide, 00:00:00 [place] [facility] PPSV23 (PNEUMOVAX) Branch Pneumococcal 2014-04-28 Completed [facility] Pol[facility]accharide, 00:00:00 [place] [facility] PPSV23 (PNEUMOVAX) Branch Pneumococcal 2014-04-28 Completed [facility] Pol[facility], 00:00:00 [place] [facility] PPSV23 (PNEUMOVAX) Branch Pneumococcal 2014-04-28 Completed [facility] Pol[facility], 00:00:00 [place] [facility] PPSV23 (PNEUMOVAX) Branch Pneumococcal 2014-04-28 Completed [facility] Pol[facility], 00:00:00 [place] [facility] PPSV23 (PNEUMOVAX) Branch Pneumococcal 2014-04-28 Completed [facility] Pol[facility]accharide, 00:00:00 [place] [facility] PPSV23 (PNEUMOVAX) Branch Pneumococcal 2014-04-28 Completed [facility] Pol[facility]accharide, 00:00:00 [place] [facility] PPSV23 (PNEUMOVAX) Branch Pneumococcal 2014-04-28 Completed [facility] Pol[facility]accharide, 00:00:00 [place] [facility] PPSV23 (PNEUMOVAX) Branch Pneumococcal 2014-04-28 Completed [facility] Pol[facility]accharide, 00:00:00 [place] [facility] PPSV23 (PNEUMOVAX) Branch Pneumococcal 2014-04-28 Completed [facility] Pol[facility]accharide, 00:00:00 [place] [facility] PPSV23 (PNEUMOVAX) Branch Pneumococcal 2014-04-28 Completed [facility] Pol[facility]accharide, 00:00:00 [place] [facility] PPSV23 (PNEUMOVAX) Branch Pneumococcal 2014-04-28 Completed [facility] Pol[facility], 00:00:00 [place] [facility] PPSV23 (PNEUMOVAX) Branch Pneumococcal 2014-04-28 Completed [facility] Pol[facility]accharide, 00:00:00 [place] [facility] PPSV23 (PNEUMOVAX) Branch Pneumococcal 2014-04-28 Completed [facility] Pol[facility]accharide, 00:00:00 [place] [facility] PPSV23 (PNEUMOVAX) Branch Pneumococcal 2014-04-28 Completed [facility] Pol[facility], 00:00:00 [place] [facility] PPSV23 (PNEUMOVAX) Branch Pneumococcal 2014-04-28 Completed [facility] Pol[facility], 00:00:00 [place] [facility] PPSV23 (PNEUMOVAX) Branch Pneumococcal 2014-04-28 Completed [facility] Pol[facility], 00:00:00 [place] [facility] PPSV23 (PNEUMOVAX) Branch Pneumococcal 2014-04-28 Completed [facility] Pol[facility], 00:00:00 [place] [facility] PPSV23 (PNEUMOVAX) Branch Pneumococcal 2014-04-28 Completed [facility] Pol[facility], 00:00:00 [place] [facility] PPSV23 (PNEUMOVAX) Branch Pneumococcal 2014-04-28 Completed [facility] Pol[facility], 00:00:00 [place] [facility] PPSV23 (PNEUMOVAX) Branch Pneumococcal 2014-04-28 Completed [facility] Pol[facility], 00:00:00 [place] [facility] PPSV23 (PNEUMOVAX) Branch Pneumococcal 2014-04-28 Completed [facility] Pol[facility], 00:00:00 [place] [facility] PPSV23 (PNEUMOVAX) Branch Pneumococcal 2014-04-28 Completed [facility] Pol[facility], 00:00:00 [place] [facility] PPSV23 (PNEUMOVAX) Branch Pneumococcal 2014-04-28 Completed [facility] Pol[facility], 00:00:00 [place] [facility] PPSV23 (PNEUMOVAX) Branch Pneumococcal 2014-04-28 Completed [facility] Pol[facility], 00:00:00 [place] [facility] PPSV23 (PNEUMOVAX) Branch Pneumococcal 2014-04-28 Completed [facility] Pol[facility], 00:00:00 [place] [facility] PPSV23 (PNEUMOVAX) Branch Pneumococcal 2014-04-28 Completed [facility] Pol[facility]accharide, 00:00:00 [place] [facility] PPSV23 (PNEUMOVAX) Branch Pneumococcal 2014-04-28 Completed [facility] Pol[facility], 00:00:00 [place] [facility] PPSV23 (PNEUMOVAX) Branch Pneumococcal 2014-04-28 Completed [facility] Pol[facility], 00:00:00 [place] [facility] PPSV23 (PNEUMOVAX) Branch Pneumococcal 2014-04-28 Completed [facility] Pol[facility], 00:00:00 [place] [facility] PPSV23 (PNEUMOVAX) Branch Pneumococcal 2014-04-28 Completed [facility] Polysaccharide, 00:00:00 [facility] PPSV23 (PNEUMOVAX) Branch TD, NOS 1998-05-07 Completed [facility] 00:00:00 [facility] TD, NOS 1998-05-07 Completed [facility] 00:00:00 [facility] TD, NOS 1998-05-07 Completed [facility] 00:00:00 [facility] TD, NOS 1998-05-07 Completed [facility] 00:00:00 [facility] TD, NOS 1998-05-07 Completed [facility] 00:00:00 [facility] TD, NOS 1998-05-07 Completed [facility] 00:00:00 [facility] TD, NOS 1998-05-07 Completed [facility] 00:00:00 [facility] TD, NOS 1998-05-07 Completed [facility] 00:00:00 [facility] TD, NOS 1998-05-07 Completed [facility] 00:00:00 [facility] TD, NOS 1998-05-07 Completed [facility] 00:00:00 [facility] [facility] TD, NOS 1998-05-07 Completed [facility] 00:00:00 [facility] TD, NOS 1998-05-07 Completed [facility] 00:00:00 [facility] TD, NOS 1998-05-07 Completed [facility] 00:00:00 [facility] TD, NOS 1998-05-07 Completed [facility] 00[facility]00:00 [facility] TD, NOS 1998-05-07 Completed [facility] 00:00:00 [facility] TD, NOS 1998-05-07 Completed [facility] 00:00:00 [facility] TD, NOS 1998-05-07 Completed [facility] 00:00:00 [facility] TD, NOS 1998-05-07 Completed [facility] 00:00:00 [facility] TD, NOS 1998-05-07 Completed [facility] 00:00:00 [facility] TD, NOS 1998-05-07 Completed [facility] 00:00:00 [facility] TD, NOS 1998-05-07 Completed [facility] 00:00:00 [facility] TD, NOS 1998-05-07 Completed [facility] 00:00:00 [facility] TD, NOS 1998-05-07 Completed [facility] 00:00:00 [facility] TD, NOS 1998-05-07 Completed [facility] 00:00:00 [facility] TD, NOS 1998-05-07 Completed [facility] 00:00:00 [facility] TD, NOS 1998-05-07 Completed [facility] 00:00:00 [facility] TD, NOS 1998-05-07 Completed [facility] 00:00:00 [facility] TD, NOS 1998-05-07 Completed [facility] 00:00:00 [facility] TD, NOS 1998-05-07 Completed [facility] 00:00:00 [facility] TD, NOS 1998-05-07 Completed [facility] 00:00:00 [facility] TD, NOS 1998-05-07 Completed [facility] 00:00:00 [facility] TD, NOS 1998-05-07 Completed [facility] 00:00:00 [facility] TD, NOS 1998-05-07 Completed [facility] 00:00:00 [facility] TD, NOS 1998-05-07 Completed [facility] 00:00:00 [facility] TD, NOS 1998-05-07 Completed [facility] 00:00:00 [facility] TD, NOS 1998-05-07 Completed [facility] 00:00:00 [facility] TD, NOS 1998-05-07 Completed [facility] 00:00:00 [facility] TD, NOS 1998-05-07 Completed [facility] 00:00:00 [facility] TD, NOS 1998-05-07 Completed [facility] 00:00:00 [facility] TD, NOS 1998-05-07 Completed [facility] 00:00:00 [facility] TD, NOS 1998-05-07 Completed [facility] 00:00:00 [facility] TD, NOS 1998-05-07 Completed [facility] 00:00:00 [facility] TD, NOS 1998-05-07 Completed [facility] 00:00:00 [facility] TD, NOS 1998-05-07 Completed [facility] 00:00:00 [facility] TD, NOS 1998-05-07 Completed [facility] 00:00:00 [facility] TD, NOS 1998-05-07 Completed [facility] 00:00:00 [facility] TD, NOS 1998-05-07 Completed [facility] 00:00:00 [facility] TD, NOS 1998-05-07 Completed [facility] 00:00:00 [facility] TD, NOS 1998-05-07 Completed [facility] 00:00:00 [facility] Td 1998-05-07 Completed [facility] 00:00:00 [facility] Td 1998-05-07 Completed [facility] 00:00:00 [facility] Td 1998-05-07 Completed [facility] 00:00:00 [facility] Td 1998-05-07 Completed [facility] 00:00:00 [facility] Td 1998-05-07 Completed [facility] 00:00:00 [facility] Td 1998-05-07 Completed [facility] 00:00:00 [facility] Td 1998-05-07 Completed [facility] 00:00:00 [facility] Td 1998-05-07 Completed [facility] 00:00:00 [facility] Td 1998-05-07 Completed [facility] 00:00:00 [facility] Td 1998-05-07 Completed [facility] 00:00:00 [facility] Td 1998-05-07 Completed [facility] 00:00:00 [facility] Td 1998-05-07 Completed [facility] 00:00:00 [facility] Td 1998-05-07 Completed [facility] 00:00:00 [facility] Td 1998-05-07 Completed [facility] 00:00:00 [facility] Td 1998-05-07 Completed [facility] 00:00:00 [facility] Td 1998-05-07 Completed [facility] 00:00:00 [facility] Td 1998-05-07 Completed [facility] 00:00:00 [facility] Td 1998-05-07 Completed [facility] 00:00:00 [facility] Td 1998-05-07 Completed [facility] 00:00:00 [facility] Td 1998-05-07 Completed [facility] 00:00:00 [facility] Td 1998-05-07 Completed [facility] 00:00:00 [facility] Td 1998-05-07 Completed [facility] 00:00:00 [facility] Td 1998-05-07 Completed [facility] 00:00:00 [facility] Td 1998-05-07 Completed [facility] 00:00:00 [facility] Td 1998-05-07 Completed [facility] 00:00:00 [facility] Td 1998-05-07 Completed [facility] 00:00:00 [facility] Td 1998-05-07 Completed [facility] 00:00:00 [facility] Td 1998-05-07 Completed [facility] 00:00:00 [facility] Td 1998-05-07 Completed [facility] 00:00:00 [facility] Td 1998-05-07 Completed [facility] 00:00:00 [facility] Td 1998-05-07 Completed [facility] 00:00:00 [facility] Td 1998-05-07 Completed [facility] 00:00:00 [facility] Td 1998-05-07 Completed [facility] 00:00:00 [facility] Td 1998-05-07 Completed [facility] 00:00:00 [facility] Td 1998-05-07 Completed [facility] 00:00:00 [facility] Td 1998-05-07 Completed [facility] 00:00:00 [facility] Td 1998-05-07 Completed [facility] 00:00:00 [facility] Td 1998-05-07 Completed [facility] 00:00:00 [facility] Td 1998-05-07 Completed [facility] 00:00:00 [facility] Td 1998-05-07 Completed [facility] 00:00:00 [facility] Td 1998-05-07 Completed [facility] 00:00:00 [facility] Td 1998-05-07 Completed [facility] 00:00:00 [facility] Td 1998-05-07 Completed [facility] 00:00:00 [facility] Td 1998-05-07 Completed [facility] 00:00:00 [facility] Td 1998-05-07 Completed [facility] 00:00:00 [facility] Td 1998-05-07 Completed [facility] 00:00:00 [facility] Td 1998-05-07 Completed [facility] 00:00:00 [facility] Td 1998-05-07 Completed [facility] 00:00:00 [facility] Td 1998-05-07 Completed [facility] 00:00:00 [facility] Td 1998-05-07 Completed [facility] 00:00:00 [facility] Td 1998-05-07 Completed [facility] 00:00:00 [facility] Td 1998-05-07 Completed [facility] 00:00:00 [facility] Td 1998-05-07 Completed [facility] 00:00:00 [facility] Td 1998-05-07 Completed [facility] 00:00:00 [facility] Td 1998-05-07 Completed [facility] 00:00:00 [facility] Td 1998-05-07 Completed [facility] 00:00:00 [facility] Td 1998-05-07 Completed [facility] 00:00:00 [facility] Td 1998-05-07 Completed [facility] 00:00:00 [facility] Td 1998-05-07 Completed [facility] 00:00:00 [facility] Td 1998-05-07 Completed [facility] 00:00:00 [facility] Td 1998-05-07 Completed [facility] 00:00:00 [facility] TD, NOS 1998-05-07 Completed [facility] 00:00:00 [facility] TD, NOS 1998-05-07 Completed [facility] 00:00:00 [facility] TD, NOS 1998-05-07 Completed [facility] 00:00:00 [facility] TD, NOS 1998-05-07 Completed [facility] 00:00:00 [facility] TD, NOS 1998-05-07 Completed [facility] 00:00:00 [facility] TD, NOS 1998-05-07 Completed [facility] 00:00:00 [facility] TD, NOS 1998-05-07 Completed [facility] 00:00:00 [facility] TD, NOS 1998-05-07 Completed [facility] 00:00:00 [facility] TD, NOS 1998-05-07 Completed [facility] 00:00:00 [facility] TD, NOS 1998-05-07 Completed [facility] 00:00:00 [facility] TD, NOS 1998-05-07 Completed [facility] 00:00:00 [facility] TD, NOS 1998-05-07 Completed [facility] 00:00:00 [facility] TD, NOS 1998-05-07 Completed [facility] 00:00:00 [facility] TD, NOS 1998-05-07 Completed [facility] 00:00:00 [facility] TD, NOS 1998-05-07 Completed [facility] 00:00:00 [facility] TD, NOS 1998-05-07 Completed [facility] 00:00:00 [facility] TD, NOS 1998-05-07 Completed [facility] 00:00:00 [facility] TD, NOS 1998-05-07 Completed [facility] 00:00:00 [facility] TD, NOS 1998-05-07 Completed [facility] 00:00:00 [facility] TD, NOS 1998-05-07 Completed [facility] 00:00:00 [facility] TD, NOS 1998-05-07 Completed [facility] 00:00:00 [facility] TD, NOS 1998-05-07 Completed [facility] 00:00:00 [facility] TD, NOS 1998-05-07 Completed [facility] 00:00:00 [facility] TD, NOS 1998-05-07 Completed [facility] 00:00:00 [facility] TD, NOS 1998-05-07 Completed [facility] 00:00:00 [facility] TD, NOS 1998-05-07 Completed [facility] 00:00:00 [facility] TD, NOS 1998-05-07 Completed [facility] 00:00:00 [facility] TD, NOS 1998-05-07 Completed [facility] 00:00:00 [facility] TD, NOS 1998-05-07 Completed [facility] 00:00:00 [facility] TD, NOS 1998-05-07 Completed [facility] 00:00:00 [facility] TD, NOS 1998-05-07 Completed [facility] 00:00:00 [facility] TD, NOS 1998-05-07 Completed [facility] 00:00:00 [facility] TD, NOS 1998-05-07 Completed [facility] 00:00:00 [facility] TD, NOS 1998-05-07 Completed [facility] 00:00:00 [facility] TD, NOS 1998-05-07 Completed [facility] 00:00:00 [facility] TD, NOS 1998-05-07 Completed [facility] 00:00:00 [facility] TD, NOS 1998-05-07 Completed [facility] 00:00:00 [facility] TD, NOS 1998-05-07 Completed [facility] 00:00:00 [facility] TD, NOS 1998-05-07 Completed [facility] 00:00:00 [facility] TD, NOS 1998-05-07 Completed [facility] 00:00:00 [facility] TD, NOS 1998-05-07 Completed [facility] 00:00:00 [facility] TD, NOS 1998-05-07 Completed [facility] 00:00:00 [facility] TD, NOS 1998-05-07 Completed [facility] 00:00:00 [facility] TD, NOS 1998-05-07 Completed [facility] 00:00:00 [facility] TD, NOS 1998-05-07 Completed [facility] 00:00:00 [facility] TD, NOS 1998-05-07 Completed [facility] 00:00:00 [facility] TD, NOS 1998-05-07 Completed [facility] 00:00:00 [facility] TD, NOS 1998-05-07 Completed [facility] 00:00:00 [facility] TD, NOS 1998-05-07 Completed [facility] 00:00:00 [facility] TD, NOS 1998-05-07 Completed [facility] 00:00:00 [facility] TD, NOS 1998-05-07 Completed [facility] 00:00:00 [facility] TD, NOS 1998-05-07 Completed [facility] 00:00:00 [facility] TD, NOS 1998-05-07 Completed [facility] 00:00:00 [facility] TD, NOS 1998-05-07 Completed [facility] 00:00:00 [facility] TD, NOS 1998-05-07 Completed [facility] 00:00:00 [facility] TD, NOS 1998-05-07 Completed [facility] 00:00:00 [facility] TD, NOS 1998-05-07 Completed [facility] 00:00:00 [facility] TD, NOS 1998-05-07 Completed [facility] 00:00:00 [facility] TD, NOS 1998-05-07 Completed [facility] 00:00:00 [facility] TD, NOS 1998-05-07 Completed [facility] 00:00:00 [facility] TD, NOS 1998-05-07 Completed [facility] 00:00:00 [facility] TD, NOS 1998-05-07 Completed [facility] 00:00:00 [facility] TD, NOS 1998-05-07 Completed [facility] 00:00:00 [facility] TD, NOS 1998-05-07 Completed [facility] 00:00:00 [facility] TD, NOS 1998-05-07 Completed [facility] 00:00:00 [facility] TD, NOS 1998-05-07 Completed [facility] 00:00:00 [facility] Vital Signs Vital Name Observation Time Observation Value Comments Source Systolic blood 2022-12-05 20:15:00 154 mm[Hg] Univer sity of pressure [facility] Diastolic blood 2022-12-05 20:15:00 66 mm[Hg] Unive rsity of pressure [facility] Heart rate 2022-12-05 20:15:00 69 /min [facility] Body temperature 2022-12-05 20:15:00 36.39 [facility] 2022-12-05 20:15:00 20 /min Univ [facility] Oxygen saturation 2022-12-05 20:15:00 94 /min Uni versity of in Arterial blood [facility] by Pulse oximetry [place] Body height 2022-11-27 00:21:[address] [facility] Body weight 2022-11-27 00:21:[address] [facility] BMI 2022-11-27 00:21:00 24.60 kg/m2 [facility] Systolic blood 2022-11-30 16:19:00 131 mm[Hg] Univer sity of pressure [facility] Diastolic blood 2022-11-30 16:19:00 67 mm[Hg] Unive rsity of pressure [facility] Heart rate 2022-11-30 16:19:00 51 /min [facility]i ty [facility] Body temperature 2022-11-30 16:19:00 36.11 Alysha Univ ersity of [facility] Respiratory rate 2022-11-30 16:19:00 20 /min Univ ersity of [facility] Oxygen saturation 2022-11-30 16:19:00 94 /min Uni versity [facility] in [facility]terial blood [facility] Body height 2022-11-27 00:21:00 160 cm [facility] Body weight 2022-11-27 00:21:00 63 kg [facility] BMI 2022-11-27 00:21:00 24.60 kg/m2 [facility] Systolic blood 2022-11-22 19:17:00 132 mm[Hg] Univer sity of pressure [facility] Diastolic blood 2022-11-22 19:17:00 53 mm[Hg] Unive rsity of pressure [facility] Heart rate 2022-11-22 19:17:00 54 /min [facility] Body temperature 2022-11-22 19:17:00 36.5 Alysha Univ ersity of [facility] Body height 2022-11-22 19:17:00 160 cm [facility] Body weight 2022-11-22 19:17:00 63.095 kg [facility] BMI 2022-11-22 19:17:00 24.64 kg/m2 [facility] Oxygen saturation 2022-11-22 19:17:00 92 /min Uni versity of in Arterial blood [facility] Respiratory rate 2022-11-20 16:29:00 18 /min Univ ersity of [facility] Oxygen saturation 2022-11-20 16:29:00 96 /min Uni versity of in Arterial blood [facility] Systolic blood 2022-11-20 14:58:00 198 mm[Hg] Univer sity of pressure [facility] Diastolic blood 2022-11-20 14:58:00 76 mm[Hg] Unive rsity of pressure [facility] Heart rate 2022-11-20 14:58:00 54 /min Universi ty of [facility] Body temperature 2022-11-20 14:58:00 37 Alysha Univ ersity of [facility] Body weight 2022-11-20 14:58:00 58.06 kg Universi ty of [facility] BMI 2022-11-20 14:58:00 22.67 kg/m2 Universi ty of [facility] Heart rate 2022-11-16 17:53:00 64 /min Universi ty of [facility] Respiratory rate 2022-11-16 17:53:00 18 /min Univ ersity of [facility] Oxygen saturation 2022-11-16 17:53:00 98 /min Uni versity of in Arterial blood [facility] by Pulse oximetry [facility] Systolic blood 2022-11-16 16:36:00 179 mm[Hg] rn notified Univer sity of [facility] Diastolic blood 2022-11-16 16:36:00 83 mm[Hg] rn notified Unive rsity of pressure [facility] Body temperature 2022-11-16 16:36:00 35.67 Alysha Univ ersity of [facility] Body height 2022-11-14 08:31:00 160 cm Universi ty of [facility] Body weight 2022-11-14 08:31:00 58.469 kg Universi ty of [facility] BMI 2022-11-14 08:31:00 22.83 kg/m2 Universi ty of [facility] Systolic blood 2022-10-15 15:40:00 113 mm[Hg] Univer sity of pressure [facility] Diastolic blood 2022-10-15 15:40:00 63 mm[Hg] Unive rsity of [facility] Heart rate 2022-10-15 15:40:00 67 /min Universi ty of [facility] Body temperature 2022-10-15 15:40:00 36.72 Alysha Univ ersity of [facility] Body height 2022-10-15 15:40:00 160 cm Universi ty of [facility] Body weight 2022-10-15 15:40:00 59.875 kg Universi ty of [facility] BMI 2022-10-15 15:40:00 23.38 kg/m2 [facility] of [facility] Systolic blood 2022-10-11 15:56:00 145 mm[Hg] Univer sity of pressure [facility] Diastolic blood 2022-10-11 15:56:00 94 mm[Hg] Unive rsity of pressure [facility] Heart rate 2022-10-11 15:56:00 64 /min [facility] Body height 2022-10-11 15:56:00 160 cm [facility] Body weight 2022-10-11 15:56:00 59.24 kg [facility] BMI 2022-10-11 15:56:00 23.13 kg/m2 [facility] Oxygen saturation 2022-10-11 15:56:00 93 /min Uni versity of in Arterial blood [facility] Systolic blood 2022-10-11 15:03:00 177 mm[Hg] Univer sity of pressure [facility] Diastolic blood 2022-10-11 15:03:00 85 mm[Hg] Unive rsity of [facility] Heart rate 2022-10-11 15:03:00 64 /min [facility] ty [facility] Respiratory rate 2022-10-11 14:57:00 22 /min Univ ersity of [facility] Body height 2022-10-11 14:57:00 160 cm [facility] Body weight 2022-10-11 14:57:00 59.24 kg [facility] BMI 2022-10-11 14:57:00 23.13 kg/m2 [facility] Oxygen saturation 2022-10-11 14:57:00 90 /min Uni vers[facility] blood [facility] Systolic blood 2022-10-07 21:30:00 160 mm[Hg] Univer sity of pressure [facility] Diastolic blood 2022-10-07 21:30:00 72 mm[Hg] Unive rsity of pressure [facility] Heart rate 2022-10-07 21:30:00 69 /min [facility]i ty of [facility] Respiratory rate 2022-10-07 21:30:00 18 /min Univ ersity of [facility] Oxygen saturation 2022-10-07 21:30:00 95 /min Uni versity of in [facility]terial blood [facility] Body temperature 2022-10-07 20:37:00 35.67 Alysha Univ ersity of [facility] Body height 2022-10-07 18:20:00 160 cm Universi ty of [facility] Body weight 2022-10-07 18:20:00 59.421 kg Universi ty of [facility] BMI 2022-10-07 18:20:00 23.21 kg/m2 [facility]i ty of [facility] Systolic blood 2022-10-01 16:32:00 123 mm[Hg] Univer sity of pressure [facility] Diastolic blood 2022-10-01 16:32:00 64 mm[Hg] Unive rsity of [facility] Heart rate 2022-10-01 16:32:00 69 /min Universi ty of [facility] Body height 2022-10-01 16:32:00 162.6 cm [facility] of [facility] Body weight 2022-10-01 16:32:00 60.328 kg [facility] BMI 2022-10-01 16:32:00 22.83 kg/m2 [facility] Oxygen saturation 2022-10-01 16:32:00 95 /min Uni versity of in Arterial blood [facility] Systolic blood 2022-09-26 16:04:00 135 mm[Hg] Univer sity of pressure [facility] Diastolic blood 2022-09-26 16:04:00 64 mm[Hg] Unive rsity of [facility] Heart rate 2022-09-26 16:04:00 65 /min Universi ty of [facility] Respiratory rate 2022-09-26 16:04:00 22 /min Univ ersity of [facility] Body weight 2022-09-26 16:04:00 59.829 kg Universi ty of [facility] BMI 2022-09-26 16:04:00 23.37 kg/m2 [facility]i ty of [facility] Oxygen saturation 2022-09-26 16:04:00 96 /min Uni versity of in Arterial blood [facility] Systolic blood 2022-09-23 16:29:00 126 mm[Hg] Univer sity of pressure [facility] Diastolic blood 2022-09-23 16:29:00 69 mm[Hg] Unive rsity of pressure [facility] Heart rate 2022-09-23 16:29:00 73 /min [facility] Body temperature 2022-09-23 16:29:00 36.06 Alysha Univ ersity of [facility] Respiratory rate 2022-09-23 16:29:00 16 /min Univ ersity of [facility] Oxygen saturation 2022-09-23 16:29:00 93 /min Uni versity of in Arterial blood [facility] Body weight 2022-09-23 10:14:00 60.963 kg [facility] ty [facility] BMI 2022-09-23 10:14:00 23.81 kg/m2 [facility] Body height 2022-09-21 18:36:00 160 cm [facility] Systolic blood 2022-09-05 18:11:00 122 mm[Hg] Univer sity of pressure [facility] Diastolic blood 2022-09-05 18:11:00 60 mm[Hg] Unive rsity of pressure [facility] Heart rate 2022-09-05 18:11:00 60 /min [facility] ty [facility] Body temperature 2022-09-05 18:11:00 36.5 Alysha Univ ersity of [facility] Body height 2022-09-05 18:11:00 160 cm [facility] Body weight 2022-09-05 18:11:00 61.236 kg [facility] BMI 2022-09-05 18:11:00 23.91 kg/m2 [facility] Oxygen saturation 2022-09-05 18:11:00 96 /min Uni versity of in Arterial blood [facility] Systolic blood 2022-09-03 19:27:00 128 mm[Hg] Univer sity of pressure [facility] Diastolic blood 2022-09-03 19:27:00 53 mm[Hg] Unive rsity of pressure [facility] Heart rate 2022-09-03 19:16:00 64 /min [facility] Body temperature 2022-09-03 19:16:00 36.67 Alysha Univ [facility] Body height 2022-09-03 19:16:00 157.5 cm [facility] Body weight 2022-09-03 19:16:00 66.225 kg [facility] BMI 2022-09-03 19:16:00 26.70 kg/m2 [facility] Oxygen saturation 2022-09-03 19:16:00 93 /min Uni versity of in [facility]ial blood [facility] Systolic blood 2022-08-28 20:08:00 155 mm[Hg] Univer sity of pressure [facility] Diastolic blood 2022-08-28 20:08:00 84 mm[Hg] Unive rsity of pressure [facility] Heart rate 2022-08-28 20:08:00 61 /min [facility] Body temperature 2022-08-28 20:08:00 36.28 Alysha Univ [facility] Respiratory rate 2022-08-28 20:08:00 14 /min Univ ersity of [facility] Oxygen saturation 2022-08-28 20:08:00 91 /min Uni versity of in [facility]ial blood [facility] Body weight 2022-08-28 09:00:00 66.225 kg [facility] ty [facility] BMI 2022-08-28 09:00:00 26.70 kg/m2 [facility] Body height 2022-08-23 15:00:00 157.5 cm [facility] Systolic blood 2022-08-15 21:39:00 133 mm[Hg] Univer sity of pressure [facility] Diastolic blood 2022-08-15 21:39:00 58 mm[Hg] Unive rsity of pressure [facility] Heart rate 2022-08-15 21:39:00 62 /min [facility] Oxygen saturation 2022-08-15 21:37:00 98 /min Uni versity of in Arterial blood [facility]ulse [facility] Respiratory rate 2022-08-02 00:16:00 18 /min Univ ersity of [facility] Heart rate 2022-08-01 23:53:00 52 /min [facility] ty [facility] Oxygen saturation 2022-08-01 23:53:00 100 /min Uni versity of [facility] [place] [facility] P[facility]xim[facility] Systolic blood 2022-08-01 22:50:00 143 mm[Hg] Univer sity of pressure [facility] Diastolic blood 2022-08-01 22:50:00 66 mm[Hg] Unive rsity of [facility] Body temperature 2022-08-01 22:50:00 37 Alysha Univ ersity of [facility] Body height 2022-08-01 22:50:00 157.5 cm [facility] Body weight 2022-08-01 22:50:00 60.328 kg [facility] BMI 2022-08-01 22:50:00 24.33 kg/m2 [facility] Heart rate 2022-08-01 22:38:00 60 /min [facility] Oxygen saturation 2022-08-01 22:38:00 96 /min Uni versity of in Arterial blood [facility] alise by Pulse oximetry Branch Systolic blood 2022-08-01 22:37:00 131 mm[Hg] Univer sity of pressure [facility] Diastolic blood 2022-08-01 22:37:00 69 mm[Hg] Unive rsity of [facility] Body temperature 2022-08-01 22:37:00 37 Alysha Univ ersity of [facility] Respiratory rate 2022-08-01 22:37:00 26 /min Univ ersity of [facility] Body height 2022-08-01 22:37:00 157.5 cm [facility] Body weight 2022-08-01 22:37:00 60.328 kg [facility] BMI 2022-08-01 22:37:00 24.33 kg/m2 [facility] Systolic blood 2022-07-24 17:14:00 116 mm[Hg] Univer sity of [facility] Diastolic blood 2022-07-24 17:14:00 60 mm[Hg] Unive rsity of [facility] Heart rate 2022-07-24 17:14:00 55 /min [facility] Body height 2022-07-24 17:14:00 157.5 cm [facility] Body weight 2022-07-24 17:14:00 60.918 kg [facility] BMI 2022-07-24 17:14:00 24.56 kg/m2 [facility] Oxygen saturation 2022-07-24 17:14:00 94 /min Uni versity of [facility] [place] [facility] Pulse oxim[facility] Body temperature 2022-07-24 17:11:00 36.72 Alysha Univ ersity of [facility] Systolic blood 2022-06-14 17:11:00 83 mm[Hg] Univer sity of [facility] Diastolic blood 2022-06-14 17:11:00 47 mm[Hg] Unive rsity of [facility] Heart rate 2022-06-14 16:58:00 64 /min [facility] Body height 2022-06-14 16:58:00 157.5 cm [facility]i ty [facility] Oxygen saturation 2022-06-14 16:58:00 98 /min Uni versity of in [facility]ial blood [place] [facility] Pulse oxim[facility] Systolic blood 2022-05-30 16:51:00 138 mm[Hg] Univer sity of [facility] Diastolic blood 2022-05-30 16:51:00 69 mm[Hg] Unive rsity of [facility] Heart rate 2022-05-30 16:51:00 64 /min [facility] Body temperature 2022-05-30 16:51:00 36.72 Alysha [facility] Body height 2022-05-30 16:51:00 157.5 cm [facility] Body weight 2022-05-30 16:51:00 63.05 kg [facility] BMI 2022-05-30 16:51:00 25.42 kg/m2 [facility] Oxygen saturation 2022-05-30 16:51:00 96 /min Uni versity of in Ar[place]ial blood [place] [facility] Systolic blood 2022-05-25 18:37:00 126 mm[Hg] Univer sity of [facility] Diastolic blood 2022-05-25 18:37:00 53 mm[Hg] Unive rsity of [facility] Heart rate 2022-05-25 18:37:00 65 /min [facility] Body temperature 2022-05-25 18:37:00 35.83 Alysha [facility] Respiratory rate 2022-05-25 18:37:00 18 /min Univ ersity [facility] Oxygen saturation 2022-05-25 18:37:00 98 /min Uni versity of in [place]ial blood [place] [facility] Pulse oxim[facility] Body weight 2022-05-25 08:53:00 63.458 kg [facility] BMI 2022-05-25 08:53:00 25.59 kg/m2 [facility] Body height 2022-05-24 14:00:00 157.5 cm [facility] Systolic blood 2022-05-21 21:00:00 195 mm[Hg] Univer sity of [facility] Diastolic blood 2022-05-21 21:00:00 81 mm[Hg] Unive rsity of pressure [facility] Heart rate 2022-05-21 20:47:00 54 /min [facility] Body weight 2022-05-21 20:47:00 59.421 kg [facility] BMI 2022-05-21 20:47:00 23.21 kg/m2 [facility] Oxygen saturation 2022-05-21 20:47:00 99 /min room air Uni versity of in [facility]ial blood [place] [facility]ulse oxim[facility] Systolic blood 2022-05-19 00:10:00 180 mm[Hg] Univer sity of [facility] Diastolic blood 2022-05-19 00:10:00 86 mm[Hg] Unive rsity of pressure [facility] Heart rate 2022-05-19 00:10:00 51 /min [facility] Respiratory rate 2022-05-19 00:10:00 13 /min Univ ersity [facility] Oxygen saturation 2022-05-18 21:40:00 97 /min Uni versity of in Ar[place]ial blood [place] [facility] Pulse oxim[facility] Body temperature 2022-05-18 19:07:00 37.22 Alysha Univ ers[facility] Body weight 2022-05-18 19:07:00 61.236 kg [facility] BMI 2022-05-18 19:07:00 23.91 kg/m2 [facility] [place] [facility] Systolic blood 2022-05-17 17:31:00 234 mm[Hg] Univer sity of [facility] Diastolic blood 2022-05-17 17:31:00 91 mm[Hg] Unive rsity of [facility] Heart rate 2022-05-17 17:30:00 62 /min [facility] Body temperature 2022-05-17 17:30:00 36.72 Alysha [facility] Body height 2022-05-17 17:30:00 160 cm [facility] Body weight 2022-05-17 17:30:00 65.318 kg [facility] [place] [facility] BMI 2022-05-17 17:30:00 25.51 kg/m2 [facility] [place] [facility] Oxygen saturation 2022-05-17 17:30:00 97 /min Uni versity of in Ar[facility]ial blood [place] [facility] Systolic blood 2022-05-15 20:45:00 178 mm[Hg] Univer sity of [facility] Diastolic blood 2022-05-15 20:45:00 75 mm[Hg] Unive rsity of pressure [facility] Heart rate 2022-05-15 20:45:00 61 /min [facility] Body temperature 2022-05-15 20:45:00 37.06 Alysha [facility] Respiratory rate 2022-05-15 20:45:00 20 /min Univ ers[facility] Oxygen saturation 2022-05-15 20:45:00 93 /min Uni versity of in Ar[facility]ial blood [place] [facility] Body height 2022-05-15 02:00:00 160 cm [facility] [place] [facility] Body weight 2022-05-15 02:00:00 64.728 kg [facility] BMI 2022-05-15 02:00:00 25.28 kg/m2 [facility] Heart rate 2022-05-14 15:59:00 60 /min [facility] Respiratory rate 2022-05-14 15:59:00 12 /min Univ ers[facility] Body height 2022-05-14 15:59:00 160 cm [facility] Body weight 2022-05-14 15:59:00 61.236 kg [facility] BMI 2022-05-14 15:59:00 25.28 kg/m2 [facility] Oxygen saturation 2022-05-14 15:59:00 94 /min Uni versity of in [place]ial blood [place] [facility] Pulse oxim[facility] Systolic blood 2022-05-07 15:34:00 210 mm[Hg] Univer sity of pressure [facility] Diastolic blood 2022-05-07 15:34:00 80 mm[Hg] Unive rsity of [facility] Heart rate 2022-05-07 15:33:00 75 /min [facility] [place] [facility] [place] Body temperature 2022-05-07 15:33:00 36.83 Alysha Univ ersity of [facility] Body height 2022-05-07 15:33:00 157.5 cm [facility] Body weight 2022-05-07 15:33:00 63.504 kg [facility] [place] [facility] BMI 2022-05-07 15:33:00 25.61 kg/m2 [facility] Oxygen saturation 2022-05-07 15:33:00 98 /min Uni versity of in Arterial blood [place] [facility] Pulse oxim[facility] Systolic blood 2022-04-29 17:00:00 165 mm[Hg] Univer sity of [facility] Diastolic blood 2022-04-29 17:00:00 75 mm[Hg] Unive rsity of [facility] Heart rate 2022-04-29 17:00:00 53 /min [facility] Oxygen saturation 2022-04-29 17:00:00 91 /min Uni versity of in Arterial blood [place] [facility] Pulse oximetry [facility] Respiratory rate 2022-04-29 15:30:00 20 /min Univ ersity [facility] Body temperature 2022-04-29 13:52:00 36.56 Alysha Univ ersity of [facility] Body height 2022-04-29 13:52:00 157.5 cm [facility] Body weight 2022-04-29 13:52:00 58.968 kg [facility] BMI 2022-04-29 13:52:00 23.78 kg/m2 [facility] Systolic blood 2022-04-23 15:46:00 128 mm[Hg] Univer sity of [facility] Diastolic blood 2022-04-23 15:46:00 87 mm[Hg] Unive rsity of [facility] Heart rate 2022-04-23 15:46:00 62 /min [facility] Body temperature 2022-04-23 15:46:00 36.28 Alysha Univ ersity of [facility] Respiratory rate 2022-04-23 15:46:00 17 /min Univ [facility] Body weight 2022-04-23 15:46:00 60.51 kg [facility] BMI 2022-04-23 15:46:00 23.63 kg/m2 [facility] Oxygen saturation 2022-04-23 15:46:00 96 /min Uni versity of in Arterial blood [place] [facility] Pulse oxim[facility] Systolic blood 2022-04-05 14:42:00 155 mm[Hg] Univer sity of [facility] Diastolic blood 2022-04-05 14:42:00 67 mm[Hg] Unive rsity of [facility] Heart rate 2022-04-05 14:42:00 57 /min [facility] Respiratory rate 2022-04-05 14:42:00 18 /min [facility] Body height 2022-04-05 14:42:00 160 cm [facility] Body weight 2022-04-05 14:42:00 64.411 kg [facility] BMI 2022-04-05 14:42:00 25.15 kg/m2 [facility] Oxygen saturation 2022-04-05 14:42:00 96 /min Uni versity of in Arterial blood [place] [facility] Pulse oxim[facility] Systolic blood 2022-04-05 14:32:00 155 mm[Hg] Univer sity of [facility] Diastolic blood 2022-04-05 14:32:00 67 mm[Hg] Unive rsity of [facility] Heart rate 2022-04-05 14:32:00 57 /min [facility] Respiratory rate 2022-04-05 14:28:00 19 /min Univ [facility] Body height 2022-04-05 14:28:00 160 cm [facility] Body weight 2022-04-05 14:28:00 64.774 kg [facility] BMI 2022-04-05 14:28:00 25.30 kg/m2 [facility] Oxygen saturation 2022-04-05 14:28:00 96 /min Uni versity of in Arterial blood [place] [facility] Pulse oxim[facility] Systolic blood 2022-04-03 19:28:00 187 mm[Hg] Univer sity of [facility] Diastolic blood 2022-04-03 19:28:00 67 mm[Hg] Unive rsity of [facility] Heart rate 2022-04-03 19:27:00 67 /min [facility] Body temperature 2022-04-03 19:27:00 36.83 Alysha Univ [facility] Body height 2022-04-03 19:27:00 160 cm [facility] Body weight 2022-04-03 19:27:00 64.864 kg [facility] BMI 2022-04-03 19:27:00 25.33 kg/m2 [facility] Systolic blood 2022-03-26 16:26:00 168 mm[Hg] Univer sity of [facility] Diastolic blood 2022-03-26 16:26:00 80 mm[Hg] Unive rsity of [facility] Heart rate 2022-03-26 16:26:00 63 /min [facility] Body temperature 2022-03-26 16:26:00 36.5 Alysha Univ [facility] Respiratory rate 2022-03-26 16:26:00 16 /min Univ ersity [facility] Oxygen saturation 2022-03-26 16:26:00 97 /min Uni versity of in Arterial blood [place] [facility] Pulse oximetry [facility] Body weight 2022-03-26 10:03:00 65.499 kg [facility] BMI 2022-03-26 10:03:00 25.58 kg/m2 [facility] Body height 2022-03-25 18:10:00 160 cm [facility] Systolic blood 2022-03-19 16:24:00 197 mm[Hg] Univer sity of [facility] Diastolic blood 2022-03-19 16:24:00 82 mm[Hg] Unive rsity of [facility] Heart rate 2022-03-19 16:15:00 77 /min [facility] Body temperature 2022-03-19 16:15:00 36.89 Alysha [facility] Body height 2022-03-19 16:15:00 160 cm [facility] Body weight 2022-03-19 16:15:00 67.586 kg [facility] BMI 2022-03-19 16:15:00 26.39 kg/m2 [facility] Oxygen saturation 2022-03-19 16:15:00 97 /min Uni versity of in Arterial blood [place] [facility] Pulse oxim[facility] Systolic blood 2022-03-16 19:59:00 132 mm[Hg] Univer sity of [facility] Diastolic blood 2022-03-16 19:59:00 81 mm[Hg] Unive rsity of [facility] Heart rate 2022-03-16 19:59:00 118 /min [facility] Body temperature 2022-03-16 19:59:00 36.56 Alysha [facility] Body height 2022-03-16 19:59:00 160 cm [facility] Body weight 2022-03-16 19:59:00 68.493 kg [facility] BMI 2022-03-16 19:59:00 26.75 kg/m2 [facility] Oxygen saturation 2022-03-16 19:59:00 99 /min Uni versity of in Arterial blood [place] [facility] Pulse oxim[facility] Heart rate 2022-03-13 21:26:00 67 /min [facility] Respiratory rate 2022-03-13 21:26:00 18 /min Univ ersity of [facility] Oxygen saturation 2022-03-13 21:26:00 100 /min Uni versity of in Arterial blood [place] [facility] Pulse oxim[facility] Systolic blood 2022-03-13 20:24:00 124 mm[Hg] Univer sity of [facility] Diastolic blood 2022-03-13 20:24:00 71 mm[Hg] Unive rsity of [facility] Body temperature 2022-03-13 20:24:00 36.67 Alysha Univ ersity of [facility] Body height 2022-03-12 22:58:00 160 cm [facility] Body weight 2022-03-12 22:58:00 67.132 kg Universi ty of [facility] BMI 2022-03-12 22:58:00 26.22 kg/m2 Universi ty of [facility] Systolic blood 2022-03-12 18:00:00 195 mm[Hg] Univer sity of [facility] Diastolic blood 2022-03-12 18:00:00 86 mm[Hg] Unive rsity of [facility] Respiratory rate 2022-03-12 18:00:00 23 /min Univ ersity of [facility] Oxygen saturation 2022-03-12 18:00:00 94 /min Uni versity of in Arterial blood [facility] by Pulse oximetry Branch Body weight 2022-03-05 17:00:00 65.3 kg Universi ty of [facility] BMI 2022-03-05 17:00:00 26.22 kg/m2 [facility] Systolic blood 2022-02-28 18:53:00 207 mm[Hg] Univer sity of [facility] Diastolic blood 2022-02-28 18:53:00 96 mm[Hg] Unive rsity of [facility] Heart rate 2022-02-28 18:51:00 65 /min Universi ty of [facility] Body temperature 2022-02-28 18:51:00 37.56 Alysha Univ ersity of [facility] Body height 2022-02-28 18:51:00 162.6 cm [facility] Body weight 2022-02-28 18:51:[address] [facility] BMI 2022-02-28 18:51:00 24.72 kg/m2 [facility] Systolic blood 2022-02-22 14:08:00 219 mm[Hg] Univer sity of pressure [facility] Diastolic blood 2022-02-22 14:08:00 92 mm[Hg] Unive rsity of pressure [facility] Heart rate 2022-02-22 14:08:00 59 /min [facility] Oxygen saturation 2022-02-22 14:08:00 98 /min Uni versity of in Arterial blood [facility] by Pulse oximetry [place] Body temperature 2022-02-22 14:05:00 36.83 Alysha [facility] Res[facility] 2022-02-22 14:05:00 19 /min [facility] Body weight 2022-02-22 14:05:[address] [facility] BMI 2022-02-22 14:05:00 24.80 kg/m2 [facility] Procedures Procedure Date / Time Performing Clinician Source Performed POCT GLUCOSE (AUTOMATED) 2022-12-05 17:11:00 [facility] (AUTOMATED) 2022-12-05 13:36:00 [facility] 2022-12-05 09:36:00 [facility] BASIC METABOLIC PANEL (NA, 2022-12-05 09:36:00 Ayaka [facility] K, CL, CO2, GLUCOSE, BUN, Medica l Branch CREATININE, [place]) CBC WITH DIFF 2022-12-05 09:36:00 [facility] POCT GLUCOSE (AUTOMATED) 2022-12-05 04:23:00 Arpan [facility] PART[facility] THRMPLAS 2022-12-05 01:41:00 Jaya Gu U [facility] POCT GLUCOSE (AUTOMATED) 2022-12-05 01:33:00 [facility]SE (AUTOMATED) 2022-12-04 22:25:00 Arpan Cadena Un iversity of [facility] POCT GLUCOSE (AUTOMATED) 2022-12-04 17:28:00 Arpan Cadena Un iversity of [facility] CT ANGIOGRAM ABDOMEN/PELVIS 2022-12-04 14:54:15 Jaya Gu [facility] POCT GLUCOSE (AUTOMATED) 2022-12-04 13:09:00 Arpan Cadena Un iversity of [facility] ACTIVATED PARTIAL THRMPLAS 2022-12-04 11:34:00 Jaya Gu [facility] MAGNESIUM 2022-12-04 10:13:00 Vicente [facility] BASIC METABOLIC PANEL (NA, 2022-12-04 10:13:00 Merna Zhang [facility] K, CL, CO2, GLUCOSE, BUN, Medica l Branch CREATININE, [place]) CBC WITH DIFF 2022-12-04 10:13:00 Merna Zhang [facility] ACTIVATED PARTIAL THRMPLAS 2022-12-04 04:58:00 Jaya Gu [facility] POCT GLUCOSE (AUTOMATED) 2022-12-04 01:35:00 Arpan Cadena Un iversity of [facility] POCT GLUCOSE (AUTOMATED) 2022-12-03 22:07:00 Arpan Cadena Un iversity of [facility] POCT GLUCOSE (AUTOMATED) 2022-12-03 21:45:00 Arpan Cadena Un iversity of [facility] ACTIVATED PARTIAL THRMPLAS 2022-12-03 21:33:00 Merna Zhang [facility] POCT GLUCOSE (AUTOMATED) 2022-12-03 17:54:00 Arpan Cadena Un iversity of [facility] POCT GLUCOSE (AUTOMATED) 2022-12-03 17:54:00 Arpan Cadena Un iversity of [facility] ACTIVATED PARTIAL THRMPLAS 2022-12-03 13:08:00 Merna Zhang [facility] ACTIVATED PARTIAL THRMPLAS 2022-12-03 13:08:00 Merna Zhang [facility] POCT GLUCOSE (AUTOMATED) 2022-12-03 13:05:00 Arpan Cadena Un iversity of [facility] POCT GLUCOSE (AUTOMATED) 2022-12-03 13:05:00 Arpan Cadena Un iversity of [facility] MAGNESIUM 2022-12-03 07:55:00 Merna Zhang [facility] BASIC METABOLIC PANEL (NA, 2022-12-03 07:55:00 Merna Zhang [facility] K, CL, CO2, GLUCOSE, BUN, Medica l Branch CREATININE, [place]) CBC WITH DIFF 2022-12-03 07:55:00 Merna Zhang [facility] MAGNESIUM 2022-12-03 07:55:00 Vicente [facility] BASIC METABOLIC PANEL (NA, 2022-12-03 07:55:00 [facility], CL, CO2, GLUCOSE, BUN, Medica l Branch CREATININE, [place]) CBC WITH DIFF 2022-12-03 07:55:00 Merna Zhang [facility] ACTIVATED PARTIAL THRMPLAS 2022-12-03 01:01:00 Merna Zhang [facility] ACTIVATED PARTIAL THRMPLAS 2022-12-03 01:01:00 Merna Zhang [facility] POCT GLUCOSE (AUTOMATED) 2022-12-03 00:47:00 Arpan Cadena Un iversity of [facility] POCT GLUCOSE (AUTOMATED) 2022-12-03 00:47:00 Arpan Cadena Un iversity of [facility] POCT GLUCOSE (AUTOMATED) 2022-12-02 22:34:00 Arpan Cadena Un iversity of [facility] POCT GLUCOSE (AUTOMATED) 2022-12-02 22:34:00 Arpan Cadena Un iversity [facility] ACTIVATED PARTIAL THRMPLAS 2022-12-02 18:24:00 Merna Zhang niversmala [facility] ACTIVATED PARTIAL THRMPLAS 2022-12-02 18:24:00 Merna Zhangersmala [facility] POCT GLUCOSE (AUTOMATED) 2022-12-02 17:29:00 Arpan Cadena Un iversity of [facility] POCT GLUCOSE (AUTOMATED) 2022-12-02 17:29:00 Arpan Cadena Un iversity of [facility] POCT GLUCOSE (AUTOMATED) 2022-12-02 12:55:00 Arpan Cadena Un iversity of [facility] POCT GLUCOSE (AUTOMATED) 2022-12-02 12:55:00 Arpan Cadena Un iversity of [facility] ACTIVATED PARTIAL THRMPLAS 2022-12-02 06:13:00 [facility] ACTIVATED PARTIAL THRMPLAS 2022-12-02 06:13:00 SyVu [facility]ity [facility] 2022-12-02 06:11:00 Riccardo [facility] BASIC METABOLIC PANEL (NA, 2022-12-02 06:11:00 Sydanny, [facility] K, CL, CO2, GLUCOSE, BUN, Medica l Branch CREATININE, [place]) CBC WITH DIFF 2022-12-02 06:11:00 Riccardo [facility] MAGNESIUM 2022-12-02 06:11:00 Sydanny [facility] BASIC METABOLIC PANEL (NA, 2022-12-02 06:11:[address] [facility] K, CL, CO2, GLUCOSE, BUN, Medica l Branch CREATININE, [place]) CBC WITH DIFF 2022-12-02 06:11:00 Riccardo [facility] POCT GLUCOSE (AUTOMATED) 2022-12-02 01:00:00 Arpan Cadena Un iversity of [facility] POCT GLUCOSE (AUTOMATED) 2022-12-02 01:00:00 Arpan Cadena Un iversity of [facility] POCT GLUCOSE (AUTOMATED) 2022-12-01 23:11:00 rApan Cadena Un iversity of [facility] POCT GLUCOSE (AUTOMATED) 2022-12-01 23:11:00 Arpan [facility] ACTIVATED PARTIAL THRMPLAS 2022-12-01 22:21:00 [facility] ACTIV[facility] PART[facility] THRMPLAS 2022-12-01 22:21:00 [facility] POCT GLUCOSE (AUTOMATED) 2022-12-01 17:34:00 [facility] PO[facility]SE (AUTOMATED) 2022-12-01 17:34:00 [facility]pan [facility] PO[facility] GLUCOSE (AUTOMATED) 2022-12-01 14:00:00 Arpan [facility] PO[facility]SE (AUTOMATED) 2022-12-01 14:00:00 Arpan [facility] ACTIVATED PARTIAL THRMPLAS 2022-12-01 10:05:00 [facility] THRMPLAS 2022-12-01 10:05:00 Jaya Gu [facility] MAGNESIUM 2022-12-01 10:02:00 Riccardo [facility] FERRITIN SERUM 2022-12-01 10:02:00 Riccardo [facility] BASIC METABOLIC PANEL (NA, 2022-12-01 10:02:00 Jaya Gu [facility] K, CL, CO2, GLUCOSE, BUN, Medica l Branch CREATININE, [place]) IRON PANEL 2022-12-01 10:02:00 Riccardo [facility] [facility] CBC WITH DIFF 2022-12-01 10:02:00 Riccardo [facility] MAGNESIUM 2022-12-01 10:02:00 Riccardo [facility] FERRITIN SERUM 2022-12-01 10:02:00 Riccardo [facility] BASIC METABOLIC PANEL (NA, 2022-12-01 10:02:00 Jaya Gu [facility] K, CL, CO2, GLUCOSE, BUN, Medica l Branch CREATININE, CA) IRON PANEL 2022-12-01 10:02:00 [facility] CBC WITH DIFF 2022-12-01 10:02:00 Riccardo [facility] PROTHROMBIN TIME / INR 2022-12-01 01:10:00 Elizabeth Nina [facility] ACTIVATED PARTIAL THRMPLAS 2022-12-01 01:10:00 [facility] / INR 2022-12-01 01:10:00 Elizabeth [facility] PARTIAL THRMPLAS 2022-12-01 01:10:00 J[facility] POCT GLUCOSE (AUTOMATED) 2022-12-01 00:56:00 Arpan Cadena [facility] POCT GLUCOSE (AUTOMATED) 2022-12-01 00:56:00 Arpan Cadena [facility] POCT GLUCOSE (AUTOMATED) 2022-11-30 23:08:00 Arpan Cadena [facility] POCT GLUCOSE (AUTOMATED) 2022-11-30 23:08:00 Arpan Cadena [facility] POCT GLUCOSE (AUTOMATED) 2022-11-30 19:13:00 Arpan Cadena [facility] POCT GLUCOSE (AUTOMATED) 2022-11-30 19:13:00 Arpan Cadena [facility] POCT GLUCOSE (AUTOMATED) 2022-11-30 13:01:00 Arpan Cadena [facility] POCT GLUCOSE (AUTOMATED) 2022-11-30 13:01:00 Arpan Cadena [facility] MAGNESIUM 2022-11-30 11:08:00 [facility]cardo [facility] BASIC METABOLIC PANEL (NA, 2022-11-30 11:08:00 [facility], CL, CO2, GLUCOSE, BUN, Medica l Branch CREATININE, CA) CBC WITH DIFF 2022-11-30 11:08:00 Riccardo [facility] MAGNESIUM 2022-11-30 11:08:00 Sydanny [facility] BASIC METABOLIC PANEL (NA, 2022-11-30 11:08:00 SyJaya delgado [facility] K, CL, CO2, GLUCOSE, BUN, Medica l Branch CREATININE, CA) CBC WITH DIFF 2022-11-30 11:08:00 Riccardo [facility] POCT GLUCOSE (AUTOMATED) 2022-11-30 03:17:00 Arpan Cadena Un iversity [facility] POCT GLUCOSE (AUTOMATED) 2022-11-30 03:17:00 Arpan Cadena Un iversity [facility] CBC WITHOUT DIFF 2022-11-30 03:06:00 Riccardo [facility] ACTIVATED PARTIAL THRMPLAS 2022-11-30 03:06:00 Jaya Gu niversity [facility] CBC WITHOUT DIFF 2022-11-30 03:06:00 Riccardo [facility] ACTIVATED PARTIAL THRMPLAS 2022-11-30 03:06:00 Jaya [facility] POCT GLUCOSE (AUTOMATED) 2022-11-29 22:37:00 Arpan Cadena [facility] POCT GLUCOSE (AUTOMATED) 2022-11-29 22:37:00 Arpan Cadena Un iversity [facility] ACTIVATED PARTIAL THRMPLAS 2022-11-29 19:48:00 Jaya Gu U niversity [facility] ACTIVATED PARTIAL THRMPLAS 2022-11-29 19:48:00 Jaya Gu U niversity [facility] BASIC METABOLIC PANEL (NA, 2022-11-29 19:47:00 SyJaya delgado U niversity [facility] K, CL, CO2, GLUCOSE, BUN, Medica l Branch CREATININE, CA) CBC WITHOUT DIFF 2022-11-29 19:47:00 Riccardo [facility] BASIC METABOLIC PANEL (NA, 2022-11-29 19:47:00 [facility]o [facility] K, CL, CO2, GLUCOSE, BUN, Medica l Branch CREATININE, CA) CBC WITHOUT DIFF 2022-11-29 19:47:00 Riccardo [facility] AORTOILIAC DUPLEX - BY 2022-11-29 14:59:20 Cristela [facility] VASCULAR LAB [facility] AORTOILIAC DUPLEX - BY 2022-11-29 14:59:20 Cristela [facility] VASCULAR LAB [facility] CBC WITHOUT DIFF 2022-11-29 11:39:00 Riccardo [facility] CBC WITHOUT DIFF 2022-11-29 11:39:00 Riccardo [facility] MAGNESIUM 2022-11-29 06:57:00 Riccardo [facility] BASIC METABOLIC PANEL (NA, 2022-11-29 06:57:00 Riccardo [facility] K, CL, CO2, GLUCOSE, BUN, Medica l Branch CREATININE, CA) CBC WITH DIFF 2022-11-29 06:57:00 Riccardo [facility] ACTIVATED PARTIAL THRMPLAS 2022-11-29 06:57:00 [facility]o [facility] HB ABO GROUPING 2022-11-29 06:57:00 Riccardo [facility] OCCULT (GUAIAC) BLOOD 2022-11-29 06:57:00 Juancho German [facility] MAGNESIUM 2022-11-29 06:57:00 Riccardo [facility] BASIC METABOLIC PANEL (NA, 2022-11-29 06:57:00 Sydanny [facility] K, CL, CO2, GLUCOSE, BUN, Medica l Branch CREATININE, CA) CBC WITH DIFF 2022-11-29 06:57:00 [facility]o [facility] ACTIVATED PARTIAL THRMPLAS 2022-11-29 06:57:00 Jaya Gu U [facility] HB ABO GROUPING 2022-11-29 06:57:00 Riccardo [facility] OCCULT (GUAIAC) BLOOD 2022-11-29 06:57:00 Juancho German [facility] ACTIVATED PARTIAL THRMPLAS 2022-11-28 22:42:00 Jaya Gu [facility] ACTIVATED PARTIAL THRMPLAS 2022-11-28 22:42:00 Jaya Gu U [facility] CBC WITH DIFF 2022-11-28 20:11:00 [facility]cardo [facility] CBC WITH DIFF 2022-11-28 20:11:00 Riccardo [facility] ACTIVATED PARTIAL THRMPLAS 2022-11-28 19:01:00 Jaya Gu U [facility] ACTIVATED PARTIAL THRMPLAS 2022-11-28 19:01:00 Jaya Gu U [facility] MR BRAIN W WO CONTRAST 2022-11-28 14:30:00 Jaya uG Unive [facility] MR ORBIT W WO CONTRAST 2022-11-28 14:30:00 SyLeslie delgadoa Unive [facility] MR BRAIN W WO CONTRAST 2022-11-28 14:30:00 SyHarrison delgadosha Unive [facility] MR ORBIT W WO CONTRAST 2022-11-28 14:30:00 SyHarrison delgadosha Unive [facility] MAGNESIUM 2022-11-28 05:43:00 [facility]cardo [facility] C-REACTIVE PROTEIN 2022-11-28 05:43:00 Bina Paul ethan [facility] BASIC METABOLIC PANEL (NA, 2022-11-28 05:43:00 Jaya Gu U [facility] K, CL, CO2, GLUCOSE, BUN, Medica l Branch CREATININE, CA) LIPID PANEL ([id number])(TOTAL 2022-11-28 05:43:00 George Cordova [facility] CHOLESTEROL, TRIGLYCERIDES, Medi alise Branch HDL) CBC WITH DIFF 2022-11-28 05:43:00 [facility]cardo [facility] ACTIVATED PARTIAL THRMPLAS 2022-11-28 05:43:00 SyJaya delgado [facility] 2022-11-28 05:43:00 Sydanny [facility] C-REACTIVE PROTEIN 2022-11-28 05:43:00 Bina Paul [facility] BASIC METABOLIC PANEL (NA, 2022-11-28 05:43:00 Sydanny, [facility], CL, CO2, GLUCOSE, BUN, Medica l Branch CREATININE, CA) LIPID PANEL ([id number])(TOTAL 2022-11-28 05:43:00 George [facility] CHOLESTEROL, TRIGLYCERIDES, Medi alise Branch HDL) CBC WITH DIFF 2022-11-28 05:43:00 Riccardo [facility] ACTIVATED PARTIAL THRMPLAS 2022-11-28 05:43:00 Jaya Gu [facility] DNR 2022-11-28 05:01:00 Doctor Unassigned, [facility] [place] [facility] DNR 2022-11-28 05:01:00 Doctor Unassigned, [facility] Name Medical Branch ACTIVATED PARTIAL THRMPLAS 2022-11-27 21:37:00 SyJaya delgado [facility] ACTIVATED PARTIAL THRMPLAS 2022-11-27 21:37:00 Jaya Gu [facility] hospital DUPLEX VENOUS LEGS 2022-11-27 17:29:15 Riccardo [facility] BILATERAL - BY VASCULAR LAB Medi alise Branch DUPLEX VENOUS LEGS 2022-11-27 17:29:15 Riccardo [facility] BILATERAL - BY VASCULAR LAB [facility] alise Branch CAROTID DUPLEX BILATERAL - 2022-11-27 17:29:04 Jaya Gu [facility] BY VASCULAR LAB Medical Branch CAROTID DUPLEX BILATERAL - 2022-11-27 17:29:04 Jaya Gu [facility] BY VASCULAR LAB Medical Branch TRANSTHORACIC ECHO (TTE) 2022-11-27 14:07:00 Jaya Gu [facility] COMPLETE W/ CONTRAST Medical Bra [facility] TRANSTHORACIC ECHO (TTE) 2022-11-27 14:07:00 Riccardo [facility] COMPLETE W/ CONTRAST Medical Bra [facility] XR CHEST 1 VW 2022-11-27 14:06:00 Riccardo [facility] XR CHEST 1 VW 2022-11-27 14:06:00 Riccardo [facility] CT ANGIOGRAM HEAD 2022-11-27 03:04:07 Mery Myles [facility] CT HEAD WO CONTRAST 2022-11-27 03:04:07 Mery Myels [facility] CT ANGIOGRAM NECK 2022-11-27 03:04:07 Mery Myles [facility] CT ANGIOGRAM HEAD 2022-11-27 03:04:07 Mery Myles [facility] CT HEAD WO CONTRAST 2022-11-27 03:04:07 Mery Myles [facility] CT ANGIOGRAM NECK 2022-11-27 03:04:07 Mery Myles [facility] THYROID STIMULATING HORMONE 2022-11-27 01:43:00 Darrian Ray is [facility] BASIC METABOLIC PANEL (NA, 2022-11-27 01:43:00 Mery Myles [facility] K, CL, CO2, GLUCOSE, BUN, Medica l Branch CREATININE, CA) THYROID STIMULATING HORMONE 2022-11-27 01:43:00 Darrian Ray is [facility] BASIC METABOLIC PANEL (NA, 2022-11-27 01:43:00 Mery Myles [facility] K, CL, CO2, GLUCOSE, BUN, Medica l Branch CREATININE, CA) TROPONIN I 2022-11-27 00:58:00 Mery Myles [facility] CBC WITHOUT DIFF 2022-11-27 00:58:00 Mery Myles [facility] SEDIMENTATION RATE 2022-11-27 00:58:[address] [facility] GLYCOSYLATED HEMOGLOBIN 2022-11-27 00:58:00 George Cordova [facility] PROTHROMBIN TIME / INR 2022-11-27 00:58:00 Mery Myles [facility] ACTIVATED PARTIAL THRMPLAS 2022-11-27 00:58:00 Mery Myles [facility] TROPONIN I 2022-11-27 00:58:00 Mery Myles [facility] CBC WITHOUT DIFF 2022-11-27 00:58:00 Mery Myles [facility] SEDIMENTATION RATE 2022-11-27 00:58:[address] [facility] GLYCOSYLATED HEMOGLOBIN 2022-11-27 00:58:00 George Cordova [facility] PROTHROMBIN TIME / INR 2022-11-27 00:58:00 Mery Myles [facility] ACTIVATED PARTIAL THRMPLAS 2022-11-27 00:58:00 Mery Myles [facility] HB ECG ROUTINE & RHYTHM 2022-11-27 00:29:23 Mery Myles Uni [facility] HB ECG ROUTINE & RHYTHM 2022-11-27 00:29:[address] [facility] CONSENT/REFUSAL FOR 2022-11-27 00:17:18 Doctor Unassigned, [facility] DIAGNOSIS AND TREATMENT [facility] CONSENT/REFUSAL FOR 2022-11-27 00:17:18 Doctor Unassigned, [facility] DIAGNOSIS AND TREATMENT [facility] COMP. METABOLIC PANEL 2022-11-20 15:18:00 Derrell Hartley [facility] ([id number]) Medical Branch CBC WITH DIFF 2022-11-20 15:18:00 Derrell Hartley [facility] PROTHROMBIN TIME / INR 2022-11-20 15:18:00 Derrell Hartley [facility] CONSENT/REFUSAL FOR 2022-11-20 14:53:57 Doctor Unassigned [facility] DIAGNOSIS AND TREATMENT [place] [facility] CBC WITHOUT DIFF 2022-11-16 01:28:00 [facility] 2022-11-15 19:29:23 Bill Johnson [facility] DUPLEX VENOUS LEGS 2022-11-15 19:10:00 Sawyer Concepcion [facility] BILATERAL - BY VASCULAR LAB [facility] PREPARE PACKED RBC 2022-11-15 15:53:52 Meli Lakhani [facility] BASIC METABOLIC PANEL (NA, 2022-11-15 09:52:00 Bill Johnson [facility] K, CL, CO2, GLUCOSE, BUN, Medica l Branch CREATININE, CA) CBC WITH DIFF 2022-11-15 09:52:00 Bill Johnson [facility] PROTHROMBIN TIME / INR 2022-11-15 09:52:00 Bill Johnson [facility] CBC WITHOUT DIFF 2022-11-15 05:06:00 Alex Blanch[facility] TRANSFUSE PACKED RBC 2022-11-14 22:49:00 Bill Johnson [facility] PREPARE PACKED RBC 2022-11-14 22:24:55 Bill Johnson [facility] HB ABO GROUPING 2022-11-14 21:03:00 Bill Johnson [facility] CBC WITHOUT DIFF 2022-11-14 13:39:00 Stephy [facility] VITAMIN B12, LEVEL 2022-11-14 12:08:[address] [facility] FOLATE 2022-11-14 12:08:00 Ste[facility] PROTHROMBIN TIME / INR 2022-11-14 10:37:00 Bill Johnson [facility] FIBRINOGEN 2022-11-14 10:37:00 Ste[facility] TRANSFUSE PACKED RBC 2022-11-14 06:09:00 Meli Lakhani [facility] CT HEAD WO CONTRAST 2022-11-14 05:11:58 Meil Lakhani [facility] CT ABDOMEN PELVIS WO 2022-11-14 05:03:45 Meli Lakhani [facility] TYPE AND SCREEN 2022-11-14 04:31:[address] [facility] HB ABO GROUPING 2022-11-14 04:31:[address] [facility] URINALYSIS 2022-11-14 03:28:[address] [facility] LIPASE 2022-11-14 03:11:[address] [facility] TROPONIN I 2022-11-14 03:11:[address] [facility] COMP. METABOLIC PANEL 2022-11-14 03:11:00 Meli Lakhani [facility] ([id number]) [facility] CBC WITH DIFF 2022-11-14 03:11:[address] [facility] PROTHROMBIN TIME / INR 2022-11-14 03:11:00 [facility]eli [facility] PARTIAL THRMPLAS 2022-11-14 03:11:00 Meli Lakhani [facility] N-TERMINAL PRO-BNP 2022-11-14 03:11:00 Meli Lakhani [facility] HB ECG ROUTINE & RHYTHM 2022-11-14 02:52:09 Meli Lakhani [facility] HOSPITAL ADMISSION 2022-11-13 05:01:00 Doctor Unassigned, [facility] [place] [facility] EKG-12 LEAD 2022-10-07 21:18:26 Abdiaziz Dos Santos [facility] LACTIC ACID WHOLE BLOOD 2022-10-07 21:07:00 Abdiaziz Dos [facility] URINALYSIS 2022-10-07 20:01:00 Abdiaziz Dos Santos [facility] TROPONIN I 2022-10-07 18:33:00 Abdiaziz Dos Santos [facility] COMP. METABOLIC PANEL 2022-10-07 18:33:00 Abdiaziz Dos Santos [facility] ([id number]) [facility] CBC WITH DIFF 2022-10-07 18:33:00 Abdiaziz Dos Santos [facility] PROTHROMBIN TIME / INR 2022-10-07 18:33:00 Abdiaziz Dos Santos [facility] BASIC METABOLIC PANEL (NA, 2022-09-23 10:12:00 Jaden Tomas [facility] K, CL, CO2, GLUCOSE, BUN, Medica l Branch CREATININE, CA) CBC WITH DIFF 2022-09-23 10:12:00 Zakia Porter [facility] PROTHROMBIN TIME / INR 2022-09-23 10:12:00 Jaden Tomas [facility] PROTHROMBIN TIME / INR 2022-09-22 09:48:00 Iftikhar Aleman [facility] XR HIPS 2 VW RIGHT 2022-09-22 01:05:00 Iftikhar Aleman [facility] XR KNEE 3 VW RIGHT 2022-09-22 01:05:00 Iftikhar Aleman [facility] DUPLEX VENOUS LEG LEFT - BY 2022-09-21 15:16:00 Derrell Hartley [facility] VASCULAR LAB [facility] XR CHEST 1 VW 2022-09-21 14:34:50 Derrell Hartley [facility] MAGNESIUM 2022-09-21 14:29:00 Derrell Hartley [facility] TROPONIN I 2022-09-21 14:29:00 Derrell Hartley [facility] COMP. METABOLIC PANEL 2022-09-21 14:29:00 Derrell Hartley [facility] ([id number]) [facility] CBC WITH DIFF 2022-09-21 14:29:00 Derrell Hartley [facility] URINALYSIS 2022-09-21 14:29:00 Derrell Hartley Lay [facility] HB ECG ROUTINE & RHYTHM 2022-09-21 14:12:26 Derrell Hartley [facility] PATIENT FINANCIAL 2022-09-03 19:08:50 Doctor Unassigned, [facility] [place] [facility] BASIC METABOLIC PANEL (NA, 2022-08-28 09:37:00 Iftikhar Aleman [facility] K, CL, CO2, GLUCOSE, BUN, [facility] [place] CREATININE, CA) N-TERMINAL PRO-BNP 2022-08-28 09:37:00 Luci Mcgregor [facility] BASIC METABOLIC PANEL (NA, 2022-08-27 15:11:00 Iftikhar Aleman [facility] K, CL, CO2, GLUCOSE, BUN, [facility] CREATININE, CA) XR CHEST 1 VW 2022-08-26 11:22:14 Elias Alcantar [facility] CBC WITH DIFF 2022-08-26 10:47:00 Iftikhar Aleman [facility] MAGNESIUM 2022-08-26 09:40:00 Iftikhar Aleman [facility] COMP. METABOLIC PANEL 2022-08-26 09:40:00 Iftikhar Aleman [facility] ([id number]) [facility] CT HEAD WO CONTRAST 2022-08-25 19:37:[address] [facility] ACUTE CARE VENOUS BLOOD GAS 2022-08-25 11:02:00 Cole Bolivar [facility] URINALYSIS 2022-08-25 10:31:00 Juju Miranda [facility] PROTEIN CREAT RATIO URINE 2022-08-25 10:31:00 Juju Miranda [facility] POTASSIUM, URINE RANDOM 2022-08-25 10:31:00 Juju Miranda Uni [facility] SODIUM, URINE RANDOM 2022-08-25 10:31:00 Juju Miranda [facility] CHLORIDE, URINE RANDOM 2022-08-25 10:31:00 Juju Miranda [facility] PHOSPHORUS 2022-08-25 10:21:00 Juju Miranda [facility] URIC ACID 2022-08-25 10:21:00 Juju Miranda [facility] MAGNESIUM 2022-08-25 10:21:00 Ash [facility] BASIC METABOLIC PANEL (NA, 2022-08-25 10:21:00 Iftikhar Aleman [facility] K, CL, CO2, GLUCOSE, BUN, Medica l Branch CREATININE, CA) VANCOMYCIN TROUGH 2022-08-25 10:21:00 Zakia Porter [facility] CBC WITH DIFF 2022-08-25 10:21:00 Ash [facility] N-TERMINAL PRO-BNP 2022-08-25 10:21:00 Luci Mcgregor [facility] MAGNESIUM 2022-08-24 09:12:00 Ash [facility] BASIC METABOLIC PANEL (NA, 2022-08-24 09:12:00 Iftikhar Aleman [facility] K, CL, CO2, GLUCOSE, BUN, Medica l Branch CREATININE, CA) CBC WITH DIFF 2022-08-24 09:12:00 Ash [facility] AC ABG + LACTIC ACID 2022-08-24 09:12:00 Cole Bolivar [facility] AC ABG + LACTIC ACID 2022-08-24 01:21:00 Iftikhar Aleman [facility] PHOSPHORUS 2022-08-24 01:19:00 Ash [facility] MAGNESIUM 2022-08-24 01:19:00 Ash [facility] IONIZED CALCIUM 2022-08-24 01:19:00 Ash [facility] COMP. METABOLIC PANEL 2022-08-24 01:19:00 Iftikhar Aleman [facility] ([id number]) [facility] CBC WITH DIFF 2022-08-24 01:19:00 Ash [facility] XR CHEST 1 VW 2022-08-24 00:02:50 Rhoda [facility] BASIC METABOLIC PANEL (NA, 2022-08-23 21:40:00 Iftikhar Aleman [facility] K, CL, CO2, GLUCOSE, BUN, [facility] [place] CREATININE, CA) CBC WITH DIFF 2022-08-23 21:40:00 Iftikhar Aleman [facility] PROTHROMBIN TIME / INR 2022-08-23 21:40:00 Iftikhar Aleman [facility] ACTIVATED PARTIAL THRMPLAS 2022-08-23 21:40:00 Iftikhar Aleman [facility] PROCALCITONIN 2022-08-23 21:40:00 Iftikhar Aleman [facility] PNEUMOCOCCAL ANTIGEN 2022-08-23 21:22:00 Iftikhar Aleman [facility] MRSA / MSSA SCREEN BY PCR, 2022-08-23 21:22:00 Zakai Porter [facility] RESPIRATORY PANEL BY PCR 2022-08-23 21:22:00 Iftikhar Aleman [facility] URINE DRUG (IMMUNOASSAY) - 2022-08-23 21:20:00 Rylee Christian [facility] COMPREHENSIVE DRUG SCREEN [facility] URINE CULTURE 2022-08-23 21:20:00 Iftikhar Aleman [facility] URINE DRUG (LCMSMS) - 2022-08-23 21:20:00 [facility] SYNTHETIC OPIATES PANEL [facility] CREATININE, URINE RANDOM 2022-08-23 21:19:00 Rylee Christian [facility] POTASSIUM, URINE RANDOM 2022-08-23 21:19:00 Lacy [facility] SODIUM, URINE RANDOM 2022-08-23 21:19:00 [facility] AC PANEL 20 + LACTIC ACID 2022-08-23 21:12:00 Iftikhar Aleman [facility] TRANSTHORACIC ECHO (TTE) 2022-08-23 14:19:00 Rylee Christian [facility] BLOOD CULTURE SCREEN 2022-08-23 10:06:00 [facility] BLOOD CULTURE SCREEN 2022-08-23 10:02:00 [facility] CORTISOL AM 2022-08-23 09:52:00 Lacy [facility] TROPONIN I 2022-08-23 09:52:00 Lacy [facility] BASIC METABOLIC PANEL (NA, 2022-08-23 09:52:00 Rylee Christian [facility] K, CL, CO2, GLUCOSE, BUN, Medica l Branch CREATININE, CA) CBC WITH DIFF 2022-08-23 09:52:00 Lacy [facility] COVID-19 (ID NOW RAPID 2022-08-23 04:39:00 [facility] LAB ONLY COVID 2022-08-23 04:39:00 Lacy [facility] INTERPRETATION [facility] COMP. METABOLIC PANEL 2022-08-22 21:34:00 Mihir Rose [facility] ([id number]) [facility] XR CHEST 1 VW 2022-08-22 21:15:00 Rose [facility] URINALYSIS 2022-08-22 20:55:00 Rose [facility] HB ECG ROUTINE & RHYTHM 2022-08-22 20:41:52 Rose [facility] STRIP [facility] LIPASE 2022-08-22 20:36:00 Rose [facility] TROPONIN I 2022-08-22 20:36:00 Rose [facility] CBC WITH DIFF 2022-08-22 20:36:00 Rose [facility] N-TERMINAL PRO-BNP 2022-08-22 20:36:00 Mihir Rose [facility] LACTIC ACID WHOLE BLOOD 2022-08-22 20:36:00 Rose [facility] CONSENT/REFUSAL FOR 2022-08-22 19:38:14 Doctor Unassigned, [facility] DIAGNOSIS AND TREATMENT [facility] CO INJECTION AA&/STRD 2022-08-02 00:52:59 Mat Gould [facility] FEMORAL NERVE W/IMG GDN Medical Branch CONSENT/REFUSAL FOR 2022-08-01 22:44:03 Doctor Unassigned [facility] DIAGNOSIS AND TREATMENT [place] [facility] MEDICATION CORRESPONDENCE 2022-06-08 06:01:00 Doctor Unassigned, [facility] [place] [facility] PROTEIN QUANT U/24H 2022-05-25 18:23:[address] [facility] PROTHROMBIN TIME / INR 2022-05-25 11:14:00 Bela Dwyer [facility] MAGNESIUM 2022-05-25 09:01:00 Iftikhar Aleman [facility] TROPONIN I 2022-05-25 09:01:00 Susy mitchell [facility] BASIC METABOLIC PANEL (NA, 2022-05-25 09:01:00 Iftikhar Aleman [facility] K, CL, CO2, GLUCOSE, BUN, [facility] CREATININE, CA) CBC WITH DIFF 2022-05-25 09:01:00 Iftikhar Aleman [facility] RENAL ARTERY DUPLEX - BY 2022-05-24 20:57:00 Elias Alcantar [facility] VASCULAR LAB [facility] MR BRAIN WO CONTRAST 2022-05-24 14:32:51 Bela Dwyer [facility] IRON PANEL 2022-05-24 13:57:00 Bela Dwyer [facility] URINE DRUG (IMMUNOASSAY) - 2022-05-24 10:28:00 Bela Dwyer [facility] COMPREHENSIVE DRUG SCREEN [facility] [facility]GIONELLA URINARY ANTIGEN 2022-05-24 10:28:00 Bela Dwyer [facility] UREA NITROGEN, URINE RANDOM 2022-05-24 10:28:00 Bela Dwyer [facility] SODIUM, URINE RANDOM 2022-05-24 10:28:00 Bela Dwyer [facility] PROTEIN CREAT RATIO URINE 2022-05-24 10:28:[address] [facility] KINASE 2022-05-24 08:50:00 Bela Dwyer [facility] FERRITIN SERUM 2022-05-24 08:50:00 Susy mitchell [facility] VITAMIN B12, LEVEL 2022-05-24 08:50:00 Bela Dwyer [facility] TROPONIN I 2022-05-24 08:50:00 Susy [facility] LIPID PANEL (41117)(TOTAL 2022-05-24 08:50:00 Bela Dwyer [facility] CHOLESTEROL, TRIGLYCERIDES, [facility] Branch HDL) PROTHROMBIN TIME / INR 2022-05-24 08:50:00 Susy mitchell [facility] VITAMIN D, 25-OH 2022-05-24 08:50:00 Susy mitchell [facility] CT HEAD WO CONTRAST 2022-05-24 01:35:07 Singer [facility] XR CHEST 1 VW 2022-05-24 01:34:47 Singer [facility] URINALYSIS 2022-05-24 00:36:00 Singer [facility] TROPONIN I 2022-05-24 00:19:00 Singer [facility] COMP. METABOLIC PANEL 2022-05-24 00:19:00 Taras Sykes [facility] ([id number]) Medical Branch CBC WITH DIFF 2022-05-24 00:19:00 Singer [facility] GLYCOSYLATED HEMOGLOBIN 2022-05-24 00:19:00 Bela Dwyer [facility] (A1C) Medical Branch RAPID INFLUENZA A/B 2022-05-24 00:19:[address] [facility] N-TERMINAL PRO-BNP 2022-05-24 00:19:00 Singer Taras [facility] COVID-19 (ID NOW RAPID 2022-05-24 00:19:00 Taras Sykes [facility] TESTING) Medical Branch LAB ONLY COVID 2022-05-24 00:19:00 [facility] Branch HB ECG ROUTINE & RHYTHM 2022-05-23 23:57:52 Taras Sykes [facility] STRIP Medical Branch CONSENT/REFUSAL FOR 2022-05-23 23:34:06 Doctor Unassjoyce, [facility] DIAGNOSIS AND TREATMENT [place] [facility] MEDICAL RELEASE/CLEARANCE 2022-05-22 06:01:00 Doctor Unassjoyce, [facility] FORMS [place] [facility] CBC WITHOUT DIFF 2022-05-15 21:17:00 Riccardo [facility] CBC WITHOUT DIFF 2022-05-15 21:17:00 Riccardo [facility] PREPARE PACKED RBC 2022-05-15 18:13:03 Riccardo [facility] PREPARE PACKED RBC 2022-05-15 18:13:03 Riccardo [facility] TRANSTHORACIC ECHO (TTE) 2022-05-15 17:27:17 Riccardo [facility] LIMITED W/ DOPPLER AND Medical [place] COLOR TRANSTHORACIC ECHO (TTE) 2022-05-15 17:27:17 Riccardo [facility] W/ DOPPLER AND Medical B ranch COLOR ABORH CONFIRMATION (LAB 2022-05-15 16:45:00 Riccardo [facility] ONLY) Medical Branch ABORH CONFIRMATION (LAB 2022-05-15 16:45:00 Riccardo [facility] ONLY) Medical Branch HB ABO GROUPING 2022-05-15 16:10:00 Riccardo [facility] HB ABO GROUPING 2022-05-15 16:10:00 Riccardo [facility] MAGNESIUM 2022-05-15 10:37:00 Riccardo [facility] FERRITIN SERUM 2022-05-15 10:37:00 Riccardo [facility] BASIC METABOLIC PANEL (NA, 2022-05-15 10:37:00 Jaya Gu [facility] K, CL, CO2, GLUCOSE, BUN, Medica l Branch CREATININE, CA) IRON PANEL 2022-05-15 10:37:00 Riccardo [facility] CBC WITH DIFF 2022-05-15 10:37:00 Riccardo [facility] RETICULOCYTES AUTOMATED 2022-05-15 10:37:00 Mariana [facility] MAGNESIUM 2022-05-15 10:37:00 Riccardo [facility] FERRITIN SERUM 2022-05-15 10:37:00 Riccardo [facility] BASIC METABOLIC PANEL (NA, 2022-05-15 10:37:00 Vu [facility] K, CL, CO2, GLUCOSE, BUN, Medica l Branch CREATININE, CA) IRON PANEL 2022-05-15 10:37:00 Riccardo [facility] CBC WITH DIFF 2022-05-15 10:37:00 Riccardo [facility] RETICULOCYTES AUTOMATED 2022-05-15 10:37:00 Agata [facility] ELECTROPHYSIOLOGY PROCEDURE 2022-05-14 21:55:00 Greg Phill [facility] HOSPITAL ADMISSION 2022-05-14 06:01:00 Doctor Unassigned, [facility] [place] [facility] XR CHEST 1 VW 2022-04-29 14:31:00 Sharif Raymond [facility] LIPASE 2022-04-29 14:12:00 Sharif Raymond [facility] MAGNESIUM 2022-04-29 14:12:00 Sharif Raymond [facility] TROPONIN I 2022-04-29 14:12:00 Sharif Raymond [facility] FREE T4 2022-04-29 14:12:00 Sharif Raymond [facility] THYROID STIMULATING HORMONE 2022-04-29 14:12:00 Sharif Raymond [facility] COMP. METABOLIC PANEL 2022-04-29 14:12:00 Sharif Raymond [facility] ([id number]) [facility] CBC WITH DIFF 2022-04-29 14:12:00 Sharif Raymond [facility] PROTHROMBIN TIME / INR 2022-04-29 14:12:00 Sharif Raymond [facility] ACTIVATED PARTIAL THRMPLAS 2022-04-29 14:12:00 Sharif Raymond [facility] N-TERMINAL PRO-BNP 2022-04-29 14:12:00 Sharif Raymond [facility] MAGNESIUM 2022-03-26 10:18:00 Gela Bernardo [facility] BASIC METABOLIC PANEL (NA, 2022-03-26 10:18:00 Gela Bernardo [facility] K, CL, CO2, GLUCOSE, BUN, Medica l Branch CREATININE, [place]) LIPID PANEL (42660)(TOTAL 2022-03-26 10:18:00 Elizabeth Nina [facility] CHOLESTEROL, TRIGLYCERIDES, Medi alise Branch HDL) CARDIOVERSION EXTERNAL 2022-03-25 17:39:00 Mery Mckeon [facility] BASIC METABOLIC PANEL (NA, 2022-03-25 16:36:00 Yamilka Mckeon [facility] K, CL, CO2, GLUCOSE, BUN, Medica l Branch CREATININE, CA) CBC WITH DIFF 2022-03-25 16:36:00 Mery Mckeon [facility] MAGNESIUM 2022-03-13 21:45:00 Joshua Stuart [facility] BASIC METABOLIC PANEL (NA, 2022-03-13 21:45:00 Joshua Stuart [facility] K, CL, CO2, GLUCOSE, BUN, Medica l Branch CREATININE, CA) XR CHEST 1 VW 2022-03-13 16:35:00 Josh [facility] XR CHEST 1 VW 2022-03-13 16:35:00 Josh [facility] MAGNESIUM 2022-03-13 10:40:00 Joshua Stuart [facility] BASIC METABOLIC PANEL (NA, 2022-03-13 10:40:00 Joshua Stuart [facility] K, CL, CO2, GLUCOSE, BUN, Medica l Branch CREATININE, CA) MAGNESIUM 2022-03-13 10:40:00 Joshua Stuart o f [facility] BASIC METABOLIC PANEL (NA, 2022-03-13 10:40:00 Joshua Stuart [facility] K, CL, CO2, GLUCOSE, BUN, Medica l Branch CREATININE, CA) ELECTROPHYSIOLOGY PROCEDURE 2022-03-12 15:33:13 Phill Garza [facility] ELECTROPHYSIOLOGY PROCEDURE 2022-03-12 15:33:13 [facility] Plan of Care Planned Activity Planned Date Details Comments Source Medication 2023-01-04 00:00:00 apixaban (ELIQUIS) [facility] [place] 2.[facility] tablet [code Medical Branch = 3632994] Medication 2023-01-04 00:00:00 apixaban (ELIQUIS) [facility] [place] 2.5 mg tablet [code Medical Branch = 5184774] Medication 2023-01-04 00:00:00 apixaban (ELIQUIS) [facility] [place] 2.5 mg tablet [code Medical Branch = 0760216] Medication 2023-01-04 00:00:00 apixaban (ELIQUIS) [facility] [place] 2.5 mg tablet [code Medical Branch = 3394954] Encounters Start End Encounter Admission Attending Care Care Encounter Source Date/Time Date/Time Type Type Clinicians Facility Department ID 2022-12-05 Inpatient CRISTELA [facility] [id number] Univers 07:41:38 MAGGIE medeiros o f [facility] 2021-04-07 Emergency [facility] [id number] Univers 13:15:40 ity of [facility] 2022-12-06 2022-12-06 Transition BRUNO Garcia 1.2.840.114 [id number] Univers 00:00:00 00:00:00 of Care Stacey WOODALL 350.1.13.10 it y [id number] [address] Branch 2022-12-06 2022-12-06 Case EDITH Farley 1.2.372.656 [id number] Univers 00:00:00 00:00:00 Management Merced PANTOJA 350.1.13.10 ity of [facility] 4.2.7.2.686 Herac[place] as [id number] [facility] 025 Branch 2022-12-06 2022-12-06 Telephone Jesu [facility] 1.2.840.114 [id number] Univers 00:00:00 00:00:00 [facility] 350.1.13.10 it y of [place] 4.2.7.2.686 Heraclio as ALFONSO?BLEA [id number] [address] MEDICAL OFFICE BUILDING 2022-11-26 2022-12-05 Inpatient X SURINDER ELIZA [facility] [id number] Univers 19:30:00 16:10:00 ARPAN ity of [facility] 2022-11-26 2022-12-05 [facility] Mery Myles 1.2.840. 114 [id number] Univers 19:30:00 16:10:00 Encounter Arpan Cadena 350.1.13.10 ity [facility] 4.2.7.2.686 [place] [id number] [facility] 100 Branch 2022-12-03 2022-12-03 Outpatient R MARCIE MENCHACA [facility] 1 [id number] Univers 15:00:00 15:00:00 MARCIE MENCHACA ity of [facility] 2022-11-30 2022-11-30 Surgery KEILY Archibald 1.2.840.114 [id number] Univers 08:53:00 11:28:00 Maggie PANTOJA 350.1.13.10 ity of [facility] 4.2.7.2.686 Heraclio as [id number] [facility] 103 Branch 2022-11-22 2022-11-22 Outpatient R MAICO [facility] [id number] Univers 14:20:00 14:40:19 ELIZABETH medeiros o f [facility] 2022-11-22 2022-11-22 Office [facility] 1.2.840.114 [id number] Univers 14:20:00 14:40:19 Visit Elizabeth GIRARD 350.1.13.10 ity [facility] [place] [id number] Mn dical NAL 059 [facility] 2022-11-22 2022-11-22 Telephone [facility] 1.2.258.134 [id number] Univers 00:00:00 00:00:00 Mattchrisedson SHAJI 350.1.13.10 ity of [place] [id number] [address] 2022-11-21 2022-11-21 Outpatient R RHODA [facility] [id number] Univers 13:00:00 14:28:04 CLYDE DUONG ity [facility] 2022-11-20 2022-11-20 Emergency X Derrell HARTLEY [facility] ERT [id number] Univers 09:56:00 12:33:00 ity of [facility] 2022-11-20 2022-11-20 Emergency Sharif Raymond [facility] 1.2.840. 114 [id number] Univers 09:56:00 12:33:00 Derrell Hartley 350.1.13.10 ity of [place].7.[place] C[place] [id number] [facility] 084 [place] 2022-11-20 2022-11-20 Telephone [facility] 1.2.590.313 [id number] Univers 00:00:00 00:00:00 Elizabeth GIRARD 350.1.13.10 ity of [place] [id number] [address] 2022-11-19 2022-11-19 Transition GarciaBRUNO 1.2.840.114 [id number] Univers 00:00:00 00:00:00 of Care Stacey WOODALL 350.1.13.10 it y of [place] [id number] [facility] 403 [place] 2022-11-13 2022-11-16 Inpatient X REGAN [facility] [id number] Univers 22:01:00 16:30:00 JUANCHO ity of [facility] 2022-11-13 2022-11-16 [facility] Meli Lakhani 1.2.8 40.114 [id number] Univers 22:01:00 16:30:00 Encounter Juancho Spears 350.1. 13.10 [facility] 4.2.7.2.686 [place] [id number] [address] 2022-11-14 2022-11-14 Office [facility] 1.2.840.114 [id number] Univers 09:00:00 09:10:00 Visit Elizabeth GIRARD 350.1.13.10 ity [facility] [place] [id number] Mn dical NAL 059 [facility] 2022-11-13 2022-11-13 Plater Barrel 2, Adc Lab [facility] 1.2.840.114 [id number] Univers 14:00:00 14:15:00 Visit Elizabeth Nina 350.1.13.10 ity [facility] 4.[place] [id number] Mn rosa m ORDONEZ 353 [facility] 2022-11-13 2022-11-13 Outpatient [facility] [id number] Univers 14:00:00 14:00:00 ELIZABETH ity o f [facility] 2022-11-13 2022-11-13 Telephone [facility] 1.2.590.907 [id number] Univers 00:00:00 00:00:00 Elizabeth GIRARD 350.1.13.10 ity of [place] [id number] Mn dical NAL 059 [facility] 2022-11-07 2022-11-07 Telephone [facility] 1.2.840.114 [id number] Univers 00:00:00 00:00:00 [facility] 350.1.13.10 it y of Jorge [place] 4.2.7.2.686 Heraclio as ALFONSO?BLEA [id number] Mn rosa m PAVONEY 044 [facility] OFFICE [facility] 2022-11-01 2022-11-01 Office [facility] 1.2.840.114 [id number] Univers 11:20:00 11:30:00 Visit Elizabeth GIRARD 350.1.13.10 ity of [place] [id number] [address] 2022-11-01 2022-11-01 Outpatient R [facility] [id number] Univers 11:20:00 11:20:00 ELIZABETH raoy o willy [facility] 2022-11-01 2022-11-01 Telephone [facility] 1.2.924.848 [id number] Univers 00:00:00 00:00:00 Elizabeth GIRARD 350.1.13.10 ity of [place] 4[place] [id number] [address] 2022-10-31 2022-10-31 [place] 2, Ambika Lab [facility] 1..840.114 [id number] Univers 14:45:00 15:00:00 Visit Elizabeth Nina 350.1.13.10 ity of [place] [id number] [facility] 353 [facility] 2022-10-31 2022-10-31 Outpatient R [facility] [id number] Univers 14:45:00 14:45:00 ELIZABETH medeiros o [facility] 2022-10-26 2022-10-26 Outpatient R MAICO, [facility] [id number] Univers 15:40:00 15:55:14 ELIZABETH raoy o willy [facility] 2022-10-26 2022-10-26 Office [facility] 1..840.114 [id number] Univers 15:40:00 15:55:14 Visit Elizabeth GIRARD 350.1.13.10 ity of [place] 4[place] [id number] [address] 2022-10-26 2022-10-26 [place] Lab, Darrel - Rod [facility] 1..840.1 14 [id number] Univers 08:45:00 09:30:27 Visit Kylee [facility]ails [facility] 350.1.13 .10 ity of [place] 4.2.7.2.686 Heraclio as ALFONSO?BLEA [id number] Mn rosa m GARCIA 353 [facility] OFFICE [facility] 2022-10-26 2022-10-26 Outpatient R [facility] [id number] Univers 08:00:00 08:00:00 ity of [facility] 2022-10-26 2022-10-26 [address] [facility] 1.2.840.114 [id number] Univers 00:00:00 00:00:00 [facility] 350.1.13.10 it y of Edward [place] 4.2.7.2.686 Heraclio as ALFONOS?BLEA [id number] [facility] 044 [facility] OFFICE [facility] 2022-10-26 2022-10-26 Telephone [facility] 1.2.494.190 [id number] Univers 00:00:00 00:00:00 Elizabeth [place] 350.1.13.10 ity [facility] [place] [id number] [facility] NAL [address] [place] [address] 2022-10-24 2022-10-24 Telephone [facility] 1.2.840.114 [id number] Univers 00:00:00 00:00:00 [facility] 350.1.13.10 it y of Edward [facility] 4.2.7.2.686 Heraclio as ALFONSO?BLEA [id number] Mn dicsusie GARCIA 044 [facility] OFFICE [facility] 2022-10-17 2022-10-17 Office [facility] 1.2.840.114 [id number] Univers 15:40:00 15:50:00 Visit Godwinedson GIRARD 350.1.13.10 ity [facility] 4.[place] [id number] Mn dicca NAL 9 [facility] 2022-10-17 2022-10-17 Outpatient R [facility] [id number] Univers 15:40:00 15:40:00 ELIZABETH raoy o f [facility] 2022-10-17 2022-10-17 [place]rel Lab, Ang - Db [facility] 1.2.840.1 14 [id number] Univers 11:15:00 11:30:00 Visit Kylee Nails [facility] 350.1.13 .10 ity of [facility] 4.2.7.2.686 Heraclio as ALFONSO?BLEA [id number] Mn rosa m GARCIA 353 [facility] OFFICE [facility] 2022-10-17 2022-10-17 Telephone [facility] 1.2.840.114 [id number] Univers 00:00:00 00:00:00 [facility] 350.1.13.10 it y of Jorge [facility] 4.2.7.2.686 Heraclio as ALFONSO?BLEA [id number] [facility] KAMERON 044 [facility] 2022-10-17 2022-10-17 Telephone [facility] 1.2.105.682 [id number] Univers 00:00:00 00:00:00 Mattjeramy [place] 350.1.13.10 ity of [facility] 4.[place] [id number] Mn aprylca NAL 059 [facility] 2022-10-16 2022-10-16 Outpatient MIGUELANGEL RAINEY [facility] [id number] Univers 16:00:00 16:00:00 [facility]ANGEL [facility] 2022-10-16 2022-10-16 Telephone [facility] 1..840.114 [id number] Univers 00:00:00 00:00:00 [facility] 350.1.13.10 it y of Jorge [facility] 4.2.7.2.686 Heraclio as ALFONSO?BLEA [id number] [address] 2022-10-15 2022-10-15 Outpatient Luz Maria [facility] [id number] Univers 11:07:57 23:59:00 KYLEE [facility] 2022-10-15 2022-10-15 Office [facility] 1.2.840.114 [id number] Univers 11:00:00 11:15:00 Visit Kylee HEALTH 350.1.13.10 it y of Eddavid [place] 4.2.7.2.686 Heraclio as ALFONSO?BLEA [id number] Mn rosa m GARCIA 044 [facility] OFFICE [facility] 2022-10-11 2022-10-11 Office [facility] 1.2.840.114 [id number] Univers 10:40:00 11:14:17 Visit Elizabeth GIRARD 350.1.13.10 ity [facility] [place] [id number] Mn rosa m NAL 059 [facility] 2022-10-11 2022-10-11 Outpatient R [facility] [id number] Univers 10:40:00 11:14:17 ELIZABETH medeiros o f [facility] 2022-10-11 2022-10-11 Office [facility] 1.2.840.114 [id number] Univers 10:00:00 10:34:42 Visit Russell GIRARD 350.1.13.10 i ty of [facility] 4.[place] [id number] Mn aprylca NAL 085 [facility] 2022-10-11 2022-10-11 [facility] 1.2.840.114 [id number] Univers 00:00:00 00:00:00 [facility] 350.1.13.10 it y of Jroge [place] 4.2.7.2.686 Heraclio as ALFONSO?BLEA [id number] Mn rosa m GARCIA 044 [facility] OFFICE [facility] 2022-10-09 2022-10-09 Office [facility] 1.2.840.114 [id number] Univers 14:40:00 14:40:00 Visit Elizabeth GIRARD 350.1.13.10 ity of [place] [id number] Mn dical NAL 059 [facility] 2022-10-09 2022-10-09 Outpatient R [facility] [id number] Univers 14:40:00 13:44:35 ELIZABETH ity o f [facility] 2022-10-092022-10-09 Plater Barrel 2, Adc Lab [facility] 1.2.840.114 [id number] Univers 09:30:00 09:45:00 Visit Elizabeth Nina 350.1.13.10 ity [facility] [place] [id number] Mn rosa m ORDONEZ 353 [facility] 2022-10-09 2022-10-09 Telephone [facility] 1.2.840.114 [id number] Univers 00:00:00 00:00:00 Kylee HEALTH 350.1.13.10 it y of Edward [place] 4.2.7.2.686 Heraclio as ALFONSO?BLEA [id number] [facility] KAMERON 044 [facility] 2022-10-09 2022-10-09 Telephone [facility] 1.2.841.166 [id number] Univers 00:00:00 00:00:00 Elizabeth GIRARD 350.1.13.10 ity of [place] [id number] Mn rosa m ORDONEZ 059 [facility] 2022-10-08 2022-10-08 Telephone [facility] 1.2.840.114 [id number] Univers 00:00:00 00:00:00 Kylee HEALTH 350.1.13.10 it y of [place] 4.2.7.2.686 Heraclio as ALFONSO?BLEA [id number] [facility] [address] 2022-10-08 2022-10-08 Telephone [facility] 1.2.840.114 [id number] Univers 00:00:00 00:00:00 Kylee HEALTH 350.1.13.10 it y of [place] 4.2.7.2.686 Heraclio as ALFONSO?BLEA [id number] [address] 2022-10-07 2022-10-07 Emergency X VASNV, [facility] ERT [id number] Univers 13:15:00 17:00:00 ABDIAZIZ ity of [facility] 2022-10-07 2022-10-07 Emergency [facility] 1.2.542.410 [id number] [facility] 13:15:00 17:00:00 Abdiaziz GIRARD 350.1.13.10 i [place] [id number] [facility] [address] [place] 2022-10-05 2022-10-05 Outpatient [facility] [id number] Univers 16:00:00 16:47:34 ELIZABETH medeiros o f [facility] 2022-10-05 2022-10-05 Office [facility] [id number] [facility] 16:00:00 16:47:34 Visit Elizabeth GIRARD 350.1.13.10 it[place] [id number] Mn dical [address] 2022-10-05 2022-10-05 [place]rel 2, Adc Lab [facility] [id number] Univers 10:45:00 11:00:00 Visit Elizabeth Nina 350.1.13.10 [facility] [place] [id number] [facility] 353 [facility] 2022-10-05 2022-10-05 Telephone [facility] [id number] [id number] Univers 00:00:00 00:00:00 Elizabeth GIRARD 350.1.13.10 [place] [id number] Mn dical NAL 059 [facility] 2022-10-05 2022-10-05 Telephone [facility] [id number] Univers 00:00:00 00:00:00 Elizabeth GIRARD 350.1.13.10 it[place] [id number] Mn dical NAL 059 [facility] 2022-10-05 2022-10-05 [facility]phone [facility] 1.2.840.114 102 [id number] Univers 00:00:00 00:00:00 [facility] 350.1.13.10 it y of Eddavid [place] 4.2.7.2.686 Heraclio as ALFONSO?BLEA [phone] Mn rosa m GARCIA 044 [facility] OFFICE [facility] 2022-10-03 2022-10-03 Outpatient R MAICO [facility] [id number] Univers 14:20:00 16:09:16 MATTJERAMY ity o f [facility] 2022-10-03 2022-10-03 Office [facility] 1.2.840.114 [id number] Univers 14:20:00 16:09:16 Visit Elizabeth VILLANUEVATOPHER 350.1.13.10 ity of [place].7.[place] [id number] Mn rosa m ORDONEZ 059 [facility] 2022-10-03 2022-10-03 Plater Barrel 2, Adc Lab [facility] 1.2.840.114 [id number] Univers 13:30:00 13:30:00 Visit Maico Elizabeth SHAJI 350.1.13.10 ity of [place] 4.2.7.2.[place] [id number] Mn rosa m ORDONEZ 353 [facility] 2022-10-03 2022-10-03 Telephone [facility] 1.2.255.640 [id number] Univers 00:00:00 00:00:00 Elizabeth GIRARD 350.1.13.10 ity of [place] 4.2.7.2.[place] [id number] Mn rosa m ORDONEZ 059 [facility] 2022-10-03 2022-10-03 Telephone [facility] 1.2.600.969 [id number] [id number] Univers 00:00:00 00:00:00 Elizabeth GIRARD 350.1.13.10 ity of [place] 4.2.7.2.[place] [id number] Mn dicsusie NAL 059 [facility] 2022-10-01 2022-10-01 Office [facility] 1.2.840.114 [id number] Univers 11:30:00 11:45:00 Visit [facility] 350.1.13.10 it y of Jorge [place] 4.2.7.2.686 Heraclio as ALFONSO?BLEA [id number] Mn rosa m GARCIA 044 [facility] OFFICE [facility] 2022-10-01 2022-10-01 Outpatient R JESU, [facility] [id number] Univers 11:30:00 11:30:00 KYLEE ity of [facility] 2022-09-27 2022-09-27 Telephone [facility] 1.2.356.278 [id number] [id number] Univers 00:00:00 00:00:00 Elizabeth GIRARD 350.1.13.10 ity of [place] 4.2.7.2.686 [place] [phone] Mn dicsusie NAL 9 [facility] 2022-09-26 2022-09-26 Office [facility] 1.2.840.114 [id number] Univers 15:40:00 15:50:00 Visit Elizabeth GIRARD 350.1.13.10 ity of [place] 4.2.7.2.[place] [phone] Mn dicsusie NAL 059 [facility] 2022-09-26 2022-09-26 Outpatient [facility] [id number] Univers 15:40:00 15:40:00 ELIZABETH medeiros o f [facility] 2022-09-26 2022-09-26 Office [facility] 1.2.840.114 [id number] Univers 11:20:00 11:40:00 Visit Elizabeth GIRARD 350.1.13.10 ity of [place] 4.2.7.2.[place] [phone] Mn dical NAL 059 [facility] 2022-09-26 2022-09-26 Plater Barrel 2, Adc Lab [facility] 1.2.840.114 [id number] Univers 10:45:00 11:00:00 Visit Unknown, Attending SHAJI 350.1.13.1 0 ity of [place] 4.2.7.2.686 [place] [phone] Mn rosa m NAL 353 [facility] 2022-09-26 2022-09-26 Telephone [facility] 1.2.176.216 [id number] Univers 00:00:00 00:00:00 Elizabeth VILLANUEVATON 350.1.13.10 ity of [place] 4.2.7.2.686 [place] [phone] Mn dical NAL 059 [facility] 2022-09-26 2022-09-26 Telephone [facility] 1.2.840.114 102 [id number] Univers 00:00:00 00:00:00 [facility]e [facility] 350.1.13.10 i ty of [place] 4.2.7.2.686 [place] [id number] Mn dical NAL 044 [facility] 2022-09-25 2022-09-25 Telephone [facility] 1.2.878.186 3199 [id number] Univers 00:00:00 00:00:00 Elizabeth GIRARD 350.1.13.10 ity of [facility] 4.2.7.2.[place] [id number] Mn dicca NAL 059 [facility] 2022-09-25 2022-09-25 Transition KIANNA GarciaPriya 1.2.840.114 102 [id number] Univers 00:00:00 00:00:00 of Raquel WOODALL 350.1.13.10 it y of [place] 4.2.7.2.[place] [id number] [address] 2022-09-24 2022-09-24 Telephone [facility] 1.2.541.144 3065 77101 Univers 00:00:00 00:00:00 Godwinedson GIRARD 350.1.13.10 ity of [place] 4.2.7.2.686 [place] [id number] Mn dical NAL 059 [facility] 2022-09-24 2022-09-24 Telephone [facility] 1.2.840.114 102 [id number] Univers 00:00:00 00:00:00 [facility] 350.1.13.10 it y of Jorge [place] 4.2.7.2.686 Heraclio as ALFONSO?BLEA [id number] [facility] KNEY [address] [place] [address] MEDICAL OFFICE BUILDING 2022-09-21 2022-09-23 Outpatient X ASH [facility] [id number] Univers 09:03:00 14:00:00 IFTIKHAR medeiros [facility] 2022-09-21 2022-09-23 Emergency Derrell Hartley [facility] 1.2.840. 114 [id number] Univers 09:03:00 14:00:00 Iftikhar Aleman 350.1.13.10 ity of [place].2.7.2.[place] [id number] [facility] [address] [place] [address] 2022-09-19 2022-09-19 Telephone [facility] 1.2.840.114 102 [id number] Univers 00:00:00 00:00:00 [facility] 350.1.13.10 it y of [place] 4.2.7.2.686 Heraclio as ALFONSO?BLEA [id number] [address] OFFICE [facility] 2022-09-13 2022-09-13 Telephone [facility] 1.2.840.114 102 [id number] Univers 00:00:00 00:00:00 [facility] 350.1.13.10 it y of [facility] 4.2.7.2.686 Heraclio as ALFONSO?BLEA [id number] [address] OFFICE [facility] 2022-09-07 2022-09-07 Telephone NOEMY Alcantar 1.2.840.114 10 [id number] Univers 00:00:00 00:00:00 Elias Ethan [facility] 350.1.13.10 i ty of [facility] 4.2.7.2.686 [place] 496.2354359 [facility] [address] [place] 2022-09-07 2022-09-07 Nurse Regan SHARMA 1.2.840.114 10 [id number] Univers 00:00:00 00:00:00 Triage Britt unger 350.1.13.10 ity of [facility] 4.2.7.2.686 Heraclio as [id number] [facility] [address] [place] 2022-09-05 2022-09-05 Plater Barrel 2, Adc Lab [facility] 1.2.840.114 [id number] Univers 15:15:00 15:30:00 Visit Elias Alcantar 350.1.13.10 ity of [place] 4.2.7.2.686 [place] [id number] Mn rosa m ORDONEZ 353 [facility] 2022-09-05 2022-09-05 Outpatient R ELIAS ALCANTAR [facility] 1 [id number] Univers 15:15:00 15:15:00 ELIAS ALCANTAR ity [facility] 2022-09-05 2022-09-05 Office [facility] 1.2.840.114 [id number] 678 [facility] 13:00:00 13:33:05 Visit Yaneli GIRARD 350.1.13.10 i ty of [place] 4.2.7.2.686 [place] [id number] Mn rosa m ORDONEZ 059 [facility] 2022-09-05 2022-09-05 Telephone [facility] 1.2.840.114 101 [id number] Univers 00:00:00 00:00:00 [facility]e [facility] 350.1.13.10 i ty of [place] 4.2.7.2.686 [place] [id number] [facility] 044 [facility] 2022-09-05 2022-09-05 Telephone [facility] 1.2.840.114 101 [id number] Univers 00:00:00 00:00:00 Kylee HEALTH 350.1.13.10 it y of Edward [facility] 4.2.7.2.686 Heraclio as ALFONSO?BLEA [id number] [address] OFFICE [facility] 2022-09-04 2022-09-04 Telephone [facility] 1.2.840.114 101 [id number] Univers 00:00:00 00:00:00 Kylee HEALTH 350.1.13.10 it y of Edward [place] 4.2.7.2.686 Heraclio as ALFONSO?BLEA [id number] [address] OFFICE [facility] 2022-09-04 2022-09-04 Telephone [facility] 1.2.840.114 101 [id number] Univers 00:00:00 00:00:00 Kylee HEALTH 350.1.13.10 it y of Edward [place] 4.2.7.2.686 Heraclio as ALFONSO?BLEA [id number] [address] MEDICAL OFFICE BUILDING 2022-09-03 2022-09-03 Outpatient R JESU [facility] [id number] Univers 14:30:00 14:44:05 KYLEE ity of [facility] 2022-09-03 2022-09-03 Office [facility] 1.2.840.114 [id number] Univers 14:30:00 14:44:05 Visit [facility] 350.1.13.10 it y of Edward [place] 4.2.7.2.686 Heraclio as ALFONSO?BLEA [id number] [address] MEDICAL OFFICE [facility] 2022-09-03 2022-09-03 Orders Doctor EDITH 1.2.840.114 [id number] Univers 00:00:00 00:00:00 Only Unassigned, KIT 350.1.13.10 ity of [place] [facility] 4.2.7.2.686 Heraclio as [id number] [facility] [address] [place] 2022-08-30 2022-08-30 Nurse Regan SHARMA 1.2.840.114 10 [id number] Univers 00:00:00 00:00:00 Triage d, Britt G KIT 350.1.13.10 ity of [facility] 4.2.7.2.686 Heraclio as [id number] [facility] [address] [place] 2022-08-29 2022-08-29 Transition BRUNO Garcia 1.2.840.114 101 [id number] Univers 00:00:00 00:00:00 of Care Stacey B WOODALL 350.1.13.10 it y of [place] 4[place]2.7.2.686 [place] [id number] [facility] [address] 2022-08-29 2022-08-29 Telephone [facility] 1.2.840.114 101 [id number] Univers 00:00:00 00:00:00 [facility] 350.1.13.10 it y of Edward [place] 4.2.7.2.686 Heraclio as ALFONSO?BLEA [id number] [address] OFFICE [facility] 2022-08-22 2022-08-28 Inpatient X ASH [facility] [id number] Univers 15:05:00 16:05:00 IFTIKHAR itethan of [facility] 2022-08-22 2022-08-28 [facility] Mihir Rose [facility] 1.2.8 40.114 [id number] Univers 15:05:00 16:05:00 Encounter Iftikhar Aleman SHAJI 350.1.13.10 ity keila [place].7.2.[place] [id number] [address] 2022-08-28 2022-08-28 Telephone [facility] 1.2.840.114 101 [id number] Univers 00:00:00 00:00:00 [facility] 350.1.13.10 it y of Edward [place] 4.2.7.2.686 Heraclio as ALFONSO?BLEA [id number] [address] OFFICE [facility] 2022-08-21 2022-08-21 Refill [facility] 1.2.840.114 [id number] Univers 00:00:00 00:00:00 [facility] 350.1.13.10 it y of [place] 4.2.7.2.686 Heraclio as ALFONSO?BLEA [id number] [address] OFFICE [facility] 2022-08-20 2022-08-20 Telephone [facility] 1.2.840.114 101 [id number] Univers 00:00:00 00:00:00 [facility] 350.1.13.10 it y of Edward [place] 4.2.7.2.686 Heraclio as ALFONSO?BLEA 507.1911603 [address] OFFICE [facility] 2022-08-15 2022-08-15 Office [facility] 1.2.840.114 [id number] Univers 16:00:00 16:15:00 Visit [facility] 350.1.13.10 it y of [place] 4.2.7.2.686 Heraclio as ALFONSO?BLEA [id number] [address] OFFICE [facility] 2022-08-15 2022-08-15 Outpatient R JESU [facility] [id number] Univers 16:00:00 16:00:00 KYLEE ethan [facility] 2022-08-01 2022-08-01 Emergency Bryanna, [facility] 1.2.840.114 10 [id number] Univers 16:54:00 19:15:00 Mat SHAJI 350.1.13.10 i ty [facility] 4.2.7.2.[place] [id number] [facility] [address] [place] 2022-08-01 2022-08-01 Outpatient R AYAN, [facility] ERT [id number] Univers 16:30:00 16:54:32 MARY [facility] 2022-08-01 2022-08-01 Nurse Nurse, aDrrel [facility] 1..840.114 [id number] Univers 16:30:00 16:50:00 Visit Unknown, Attending HEALTH 350.1.13.10 itethan [facility] 4.2.7.2.686 Heraclio as ALFONSO?BLEA [id number] Mn dical KNEY [address] MEDICAL OFFICE BUILDING 2022-08-01 2022-08-01 Outpatient R AYAN [facility] [id number] Univers 16:30:00 16:30:00 MARY [facility] 2022-08-01 2022-08-01 Outpatient R YULIANA, [facility] [id number] Univers 16:00:00 16:00:00 ATTENDING [facility] 2022-07-24 2022-07-24 Outpatient R MAICO [facility] [id number] Univers 11:00:00 11:29:13 ELIZABETH medeiros o f [facility] 2022-07-24 2022-07-24 Office [facility] 1.2.840.114 [id number] Univers 11:00:00 11:29:13 Visit Elizabeth GIRARD 350.1.13.10 ity keila [place]2.7.2.686 [place] [facility] [phone] Mn rosa m ORDONEZ [address] BU[address]ING 2022-06-27 2022-06-27 Marry [facility] 1.2.840.114 [id number] Univers 00:00:00 00:00:00 [facility] 350.1.13.10 it y of [place] 4.2.7.2.686 Heraclio as ALFONSO?BLEA [id number] [address] OFFICE [facility] 2022-06-14 2022-06-14 Office [facility] 1.2.840.114 [id number] Univers 11:00:00 11:15:00 Visit [facility] 350.1.13.10 it y of [place] 4.2.7.2.686 Heraclio as ALFONSO?BLEA [id number] [address] OFFICE [facility] 2022-06-14 2022-06-14 Outpatient R [facility] [id number] Univers 11:00:00 11:00:00 KYLEE [facility] 2022-06-08 2022-06-08 Orders Doctor EDITH 1.2.840.114 [id number] Univers 00:00:00 00:00:00 Only Unassigned, KIT 350.1.13.10 [facility] 4.2.7.2.686 Heraclio as [id number] [address] 2022-05-30 2022-05-30 Office [facility] 1.2.840.114 [id number] Univers 10:45:00 11:00:00 Visit [facility] 350.1.13.10 it y of Edward [place] 4.2.7.2.686 Heraclio as ALFONSO?BLEA [id number] [address] OFFICE [facility] 2022-05-30 2022-05-30 Outpatient [facility] [id number] Univers 10:45:00 10:45:00 [facility] 2022-05-30 2022-05-30 Telephone [facility] 1.2.933.061 [id number] 3023 Univers 00:00:00 00:00:00 Yaneli Foreman SHAJI 350.1.13.10 i ty [facility] 4.2.[place] [id number] [place] 824289 [facility] 2022-05-28 2022-05-28 Transition BRUNO Garcia 1.2.840.114 [id number] [id number] Univers 00:00:00 00:00:00 of Care Stacey WOODALL 350.1.13.10 it y of [place] 4[place]2.7.2.686 [place] [id number] [facility] [address] [place] 2022-05-23 2022-05-25 [facility] [id number] Univers 17:50:00 15:25:00 IFTIKHAR ity of [facility] 2022-05-23 2022-05-25 Emergency Taras Sykes [facility] 1.2.840. 114 [id number] Univers 17:50:00 15:25:00 Gianluca Rogers 350.1.13.10 ity of [facility] 4.2.7.2.686 [facility] [id number] Medical [address] [place] 2022-05-23 2022-05-23 Telephone [facility] 1.2.233.988 [id number] 2633 Univers 00:00:00 00:00:00 Elizabeth GIRARD 350.1.13.10 ity of [facility] 4.2.7.2.[place] 419.2107503 Mn dical NAL 059 [facility] 2022-05-23 2022-05-23 Telephone Soo [facility] 1.2.117.929 [id number] 4348 Univers 00:00:00 00:00:00 Yaneli GIRARD 350.1.13.10 i ty of [facility] 4.2.7.2.[place] [id number] Mn dical NAL 059 [facility] 2022-05-22 2022-05-22 Orders Doctor EDITH 1.2.840.114 [id number] Univers 00:00:00 00:00:00 Only Unassigned, KIT 350.1.13.10 ity of [place] [facility] 4.2.7.2.686 Heraclio as [id number] [facility] [address] [place] 2022-05-21 2022-05-21 Plater Barrel 2, Adc Lab [facility] 1.2.840.114 [id number] Univers 15:30:00 15:41:13 Visit Yaneli Vann 350.1.13.10 ity [facility] 4.2.7.2.[place] 125.1941243 Mn rosa m [facility] 353 [facility] 2022-05-21 2022-05-21 Outpatient [facility] [id number] Univers 14:20:00 15:29:15 YANELI medeiros [facility] 2022-05-21 2022-05-21 Office [facility] 1.2.840.114 [id number] Univers 14:20:00 15:29:15 Visit Yaneli GIRARD 350.1.13.10 i ty of [facility] 4.2.7.[place] [id number] [place] 824289 [facility] 2022-05-21 2022-05-21 Telephone [facility] 1.2.015.695 [id number] [id number] Univers 00:00:00 00:00:00 Elizabeth GIRARD 350.1.13.10 ity [facility] 4.2.7.[place] [id number] [address] 2022-05-18 2022-05-18 Emergency X [facility] ERT [id number] Univers 13:08:00 18:26:00 TARAS mairaethan [facility] 2022-05-18 2022-05-18 Emergency [facility] 1.2.552.452 [id number] Univers 13:08:00 18:26:00 Taras GIRARD 350.1.13.10 i ty of [facility] 4.2.7.2.[place] [id number] [address] 2022-05-18 2022-05-18 Telephone [facility] 1.2.815.741 [id number] [id number] Univers 00:00:00 00:00:00 Godwinedson SHAJI 350.1.13.10 ity of [facility] 4.2.7.[place] [id number] [place] 824289 [facility] 2022-05-17 2022-05-17 Plater Barrel Lab, Ang - Db [facility] 1.2.840.1 14 [id number] Univers 12:00:00 12:15:00 Visit Kylee Nails [facility] 350.1.13 .10 ity of [place] 4.2.7.2.686 Heraclio as ALFONSO?BLEA [id number] Mn rosa m GARCIA 353 [facility] OFFICE [facility] 2022-05-17 2022-05-17 Office [facility] 1.2.840.114 [id number] Univers 11:15:00 11:45:00 Visit Kylee [facility] 350.1.13.10 it y of Jorge [facility] 4.2.7.2.686 Heraclio as ALFONSO?BLEA [id number] [facility] 044 [facility] OFFICE [facility] 2022-05-17 2022-05-17 Outpatient [facility] [id number] Univers 11:15:00 11:43:53 [facility] 2022-05-17 2022-05-17 Telephone [facility] 1.2.840.114 [id number] [facility] 00:00:00 00:00:00 [facility] 350.1.13.10 it y of Jorge [facility] 4.2.7.2.686 Heraclio as ALFONSO?BLEA [id number] [address] 2022-05-14 2022-05-15 Outpatient R CELESTINA CHICAS [facility] 1 [id number] Univers 09:36:00 18:06:00 CELESTINA CHICAS ity of [facility] 2022-05-14 2022-05-15 Hospital Phill Garza 1.2.840.114 [id number] Univers 09:36:00 18:06:00 Encounter Celestina Chicas 350.1.13.10 ity of [facility] 4.2.7.2.686 Heraclio as [id number] [address] 2022-05-14 2022-05-14 Surgery KEILY Garza 1.2.840.114 [id number] Univers 12:19:00 14:19:00 Phillwilly PANTOJA 350.1.13.10 it y of HOSPITAL 4.2.7.2.686 Heraclio as [id number] [facility] [address] 2022-05-14 2022-05-14 Orders Doctor EDITH 1.2.840.114 [id number] Univers 00:00:00 00:00:00 Only Unassigned, KIT 350.1.13.10 ity of [place] [facility] 4.2.7.2.686 Heraclio as 123.8984892 [facility] [address] 2022-05-10 2022-05-10 Telephone [facility] 1.2.944.760 [id number] 1524 Univers 00:00:00 00:00:00 Godwinedson SHAJI 350.1.13.10 ity [facility] 4.2.7.[place] [id number] Mn dical NAL 059 [facility] 2022-05-10 2022-05-10 Concan [facility] 1.2.002.160 [id number] [id number] Univers 00:00:00 00:00:00 Elizabeth StuffBuff 350.1.13.10 i ty of [place] 4.2.7.2.686 [place] [id number] [address] OFFICE BUILDING 2022 2022 Outpatient R MAICO [facility] [id number] Univers 13:00:00 23:59:00 ELIZABETH medeiros o f [facility] 2022 2022 Plater Barrel 2, Adc Lab [facility] 1.2.840.114 [id number] Univers 09:00:00 09:15:00 Visit Elizabeth Nina 350.1.13.10 ity of [facility] 4.2.7.2.[place] [id number] Mn dical NAL [address] BU[address] 2022-05-07 2022-05-07 Outpatient R JESU [facility] [id number] Univers 09:30:00 09:52:04 KYLEE medeiros [facility] 2022-05-07 2022-05-07 Office Jesu [facility] 1.2.840.114 [id number] Univers 09:30:00 09:45:00 Visit [facility] 350.1.13.10 it y of Jorge [facility] 4.2.7.2.686 Heraclio as ALFONSO?BLEA [id number] Mn rosa m GARCIA 044 [facility] OFFICE [facility] 2022-04-29 2022-04-29 Emergency X [place] [facility] [id number] Univers 07:46:00 12:02:00 GELA ity of [facility] 2022-04-29 2022-04-29 Emergency Sharif Raymond [facility] 1.2.840. 114 [id number] Univers 07:46:00 12:02:00 Geal Bernardo 350.1.13.10 ity [place] [id number] [place] [id number] [place] 2022-04-23 2022-04-23 Outpatient R MAICO [facility] [id number] Univers 09:40:00 10:01:24 ELIZABETH medeiros o f [facility] 2022-04-23 2022-04-23 [facility] 1.2.840.114 [id number] Univers 09:40:00 10:01:24 Visit Elizabeth GIRARD 350.1.13.10 ity [facility] [place]2.7.2.[place] [facility] [id number] Mn rosa m ORDONEZ 059 [facility] 2022-04-23 2022-04-23 Telephone Jesu [facility] 1.2.840.114 [id number] Univers 00:00:00 00:00:00 [facility] 350.1.13.10 it y of [place] 4.2.7.2.686 Heraclio as ALFONSO?BLEA [id number] Mn rosa m GARCIA 044 [facility] 2022-04-19 2022-04-19 Outpatient R JES[facility] [id number] Univers 13:15:00 13:15:00 KYLEE medeiros [facility] 2022-04-10 2022-04-10 Telephone KEILY Garza [id number] Univers 00:00:00 00:00:00 Phillwilly PANTOJA 350.1.13.10 it y of [facility] 4.2.7.2.686 Heraclio as [id number] [facility] 840 [place] 2022-04-10 2022-04-10 [facility]ill [facility] 1.2.840.114 [id number] Univers 00:00:00 00:00:00 [facility] 350.1.13.10 it y of Edward [place] 4.2.7.2.686 [place]ac[place] as ALFONSO?BLEA [phone] [address] OFFICE [facility] 2022-04-09 2022-04-09 Telephone [facility] [id number] [id number] Univers 00:00:00 00:00:00 Phill SHAJI 350.1.13.10 i ty [facility] [place] [id number] [place] 824289 [facility] 2022-04-05 2022-04-05 [facility] [id number] Univers 10:20:00 10:34:13 PHILL ity of [facility] 2022-04-05 2022-04-05 Office [facility] 1.2.840.114 [id number] Univers 10:20:00 10:34:13 Visit Phill GIRARD 350.1.13.10 i ty [facility] 4[place] [id number] [facility] 059 [facility] 2022-04-05 2022-04-05 Office [facility] 1.2.840.114 [id number] Univers 09:30:00 10:00:00 Visit Russell GIRARD 350.1.13.10 i ty [facility] 4[place] [id number] [facility] NAL 085 [facility] 2022-04-03 2022-04-03 Office [facility] 1.2.840.114 [id number] Univers 14:30:00 15:00:00 Visit [facility] 350.1.13.10 it y of [place] 4.2.7.2.686 [place]ac[place] as ALFONSO?BLEA [id number] [address] [facility]ICE [facility] 2022-04-03 2022-04-03 Outpatient R JESU [facility] [id number] Univers 14:30:00 14:30:00 KYLEE medeiros [facility] [facility] 2022-03-27 2022-03-27 Transition BRUNO Garcia 1.2.840.114 [id number] Univers 00:00:00 00:00:00 of Raquel WOODALL 350.1.13.10 it y of [place] 4.2.7.2.686 [place] [id number] [facility] [address] 2022-03-25 2022-03-26 Outpatient X [place] [facility] [id number] Univers 10:11:00 14:00:00 GELA medeiros [facility] 2022-03-25 2022-03-26 Emergency Mike Mery [facility] 1.2.8 40.114 [id number] Univers 10:11:00 14:00:00 Gela Bernardo 350.1.13.10 ity of [place].7.2.686 [place] [id number] [facility] [address] 2022-03-19 2022-03-19 Out[facility] [id number] Univers 14:30:00 14:30:00 BINU ethan [facility] 2022-03-19 2022-03-19 Office [facility] 1.2.840.114 [id number] Univers 11:30:00 11:45:00 Visit [facility] 350.1.13.10 it y of Jorge [place] 4.2.7.2.686 Heraclio as ALFONSO?BLEA [id number] Mn rosa m GARCIA [address] [place] [address] 2022-03-19 2022-03-19 Outpatient R JESU [facility] [id number] Univers 11:30:00 11:41:39 KYLEE medeiros [facility] 2022-03-16 2022-03-16 Outpatient [facility] [id number] Univers 14:30:00 15:53:44 BINU medeiros [facility] 2022-03-16 2022-03-16 Office [facility] 1.2.840.114 [id number] Univers 14:30:00 15:53:44 Visit Binu DEY 350.1.13.10 it y of [place] 4.2.7.2.686 Heraclio as ALFONSO?BLEA [id number] Mn dical KNEY [address] MEDICAL OFFICE BUILDING 2022-03-16 2022-03-16 Telephone [facility] 1.2.420.287 [id number] Univers 00:00:00 00:00:00 Qiajeramy GIRARD 350.1.13.10 ity of [facility] 4.2.7.2.686 [place] [id number] Mn dical NAL [address] [facility] 2022-03-14 2022-03-14 Transition BRUNO Cali 1.2.840.114 [id number] Univers 00:00:00 00:00:00 of Care Maddi WOODALL 350.1.13.10 i ty of [place].2.7.2.686 [place] [id number] [facility] [address] 2022-03-12 2022-03-13 Outpatient Luz Maria ROGEL [facility] [id number] Univers 06:19:00 19:30:00 [facility] 2022-03-12 2022-03-13 Hospital Phill Garza 1.2.840.114 [id number] Univers 06:19:00 19:30:00 Encounter Shana Rogel 350.1.13.10 ity of [facility] 4.2.7.2.68 6 [place] [id number] [facility] [address] 2022-03-12 2022-03-12 Surgery KEILY Garza 1.2.840.114 [id number] Univers 11:00:00 13:00:00 Phillwilly PANTOJA 350.1.13.10 it y of [facility] 4.2.7.2.686 Heraclio as [id number] [facility] [address] 2022-03-09 2022-03-09 Outpatient Luz Maria GARZA [facility] [id number] Univers 09:30:00 09:30:00 PHILL ity [facility] 2022-03-09 2022-03-09 Outpatient R GREG [facility] [id number] Univers 08:45:00 09:03:17 PHILL ity [facility] 2022-03-09 2022-03-09 Plater Barrel 2, Adc Lab [facility] 1.2.840.114 [id number] Univers 08:45:00 09:00:00 Visit Greg Phill SHAJI 350.1.13.10 ity of [place] 4.2.7.2.686 [place] [id number] Mn aprylsusie [facility] [address] [facility] 2022-03-09 2022-03-09 Telephone KEILY Garza 1.2.154.489 [id number] Univers 00:00:00 00:00:00 Phillwilly PANTOJA 350.1.13.10 it y of [facility] 4.2.7.2.686 Heraclio as [id number] [address] 2022-03-05 2022-03-05 Telephone KEILY Garza 1.2.112.374 [id number] Univers 00:00:00 00:00:00 Phill KIT 350.1.13.10 it y of [facility] 4.2.7.2.686 Heraclio as [id number] [address] 2022-02-28 2022-02-28 Outpatient R JESU [facility] [id number] Univers 14:00:00 14:09:13 KYLEE itethan [facility] 2022-02-28 2022-02-28 Office [facility] 1.2.840.114 [id number] Univers 14:00:00 14:09:13 Visit [facility] 350.1.13.10 it y of Jorge [place] 4.2.7.2.686 Heraclio as ALFONSO?BLEA [id number] Mn dical KNEY [address] MEDICAL OFFICE BUILDING 2022-02-28 2022-02-28 Outpatient R JESU [facility] [id number] Univers 14:00:00 14:00:00 KYLEE itethan [facility] 2022-02-27 2022-02-27 Telephone KEILY Garza 1.2.812.800 [id number] Univers 00:00:00 00:00:00 Phill KIT 350.1.13.10 it y of [facility] 4.2.7.2.686 Heraclio as [id number] [address] 2022-02-26 2022-02-26 [facility] 1.2.840.114 [id number] Univers 00:00:00 00:00:00 [facility] 350.1.13.10 ity of [place] 4.2.7.2.686 [place] [id number] Mn dicca NAL [address] [place] [address] 2022-02-22 2022-02-22 Outpatient R [facility] [id number] Univers 09:20:00 09:48:06 PIHLL ity [facility] 2022-02-22 2022-02-22 Office [facility] 1.2.840.114 [id number] Univers 09:20:00 09:48:06 Visit [facility] 350.1.13.10 i ty [facility] 4.2.7.2.686 [place] [id number] [address] 2022-02-22 2022-02-22 Outpatient R GREG [facility] [id number] Univers 09:20:00 09:48:06 PHILL ity [facility] 2022-02-13 2022-02-13 [facility] 1.2.840.114 [id number] Univers 15:30:00 15:45:00 Visit [facility] 350.1.13.10 it y of [place] 4.2.7.2.686 Heraclio as ALFONSO?BLEA [id number] [address] OFFICE [facility] 2022-02-13 2022-02-13 Outpatient Luz Maria NAILS [facility] [id number] Univers 15:30:00 15:30:00 KYLEE [facility] 2022-02-13 2022-02-13 Outpatient Luz Maria NAILS [facility] [id number] Univers 15:30:00 15:30:00 KYLEE [facility] 2022-02-13 2022-02-13 Refill [facility] 1.2.840.114 [id number] Univers 00:00:00 00:00:00 [facility] 350.1.13.10 it y of Edward [place] 4.2.7.2.686 Heraclio as ALFONSO?BLEA [id number] [facility] KAMERON 044 [facility] OFFICE [facility] 2022-02-06 2022-02-06 Outpatient [facility] [id number] Univers 10:00:00 10:00:00 KYLEE [facility] 2022-01-23 2022-01-23 Office [facility] 1.2.840.114 [id number] Univers 13:40:00 13:56:56 Visit Mattchrisedson [place] 350.1.13.10 ity [facility] 4.2.7.2.[place] [id number] [facility] 059 [facility] 2022-01-23 2022-01-23 Outpatient R MAICO, [facility] [id number] Univers 13:40:00 13:56:56 [facility] mala [facility] 2022-01-23 2022-01-23 Outpatient R MAICO, [facility] [id number] Univers 13:40:00 13:40:00 [facility] med[facility] 2022-01-23 2022-01-23 Outpatient [facility] [id number] Univers 13:40:00 13:40:00 [facility] 2022-01-17 2022-01-17 [facility] 1.2.840.114 [id number] Univers 14:30:00 15:00:00 Visit [facility] 350.1.13.10 it y of [place] 4.2.7.2.686 Heraclio as ALFONSO?BLEA [id number] [facility] KAMERON[address] OFFICE [facility] 2022-01-17 2022-01-17 Outpatient Luz Maria [facility] [id number] Univers 14:30:00 14:30:00 KYLEE ethan [facility] 2022-01-17 2022-01-17 Outpatient R JESU [facility] [id number] Univers 14:30:00 14:30:00 KYLEE itethan of [facility] 2022-01-11 2022-01-11 Transition BRUNO Garcia 1.2.840.114 [id number] Univers 00:00:00 00:00:00 of Care Stacey B WOODALL 350.1.13.10 it y of [place] 4.2.7.2.686 [place] [id number] [facility] [address] 2022-01-08 2022-01-10 Inpatient U AAMIR PHILLIPS [facility] [id number] Univers 13:32:00 22:06:00 [facility] 2022-01-08 2022-01-10 [facility] Coby Abdul 1.2.84 0.114 [id number] Univers 13:32:00 22:06:00 Encounter kavehAamir Johnson KIT 350.1.13 .10 ity of [facility] 4.2.7.2.686 Heraclio as [id number] [facility] [address] 2022-01-10 2022-01-10 Concan [facility] 1.2.015.184 [id number] Univers 00:00:00 00:00:00 Elizabeth GIRARD 350.1.13.10 ity of [place] 4.2.7.2.686 [place] [id number] [facility] 059 [facility] 2022-01-09 2022-01-09 Transition BRUNO Garcia 1.2.840.114 [id number] Univers 00:00:00 00:00:00 of Care Stacey B WOODALL 350.1.13.10 it y of [place]2.7.2.686 [place] [id number] [facility] [address] 2022-01-08 2022-01-08 BRUNO Ramos 1.2.840.114 [id number] Univers 00:00:00 00:00:00 of Care Stacey B WOODALL 350.1.13.10 it y of [place] 4.2.7.2.686 [place] [id number] [facility] [address] 2022-01-05 2022-01-07 Inpatient X ASH [facility] [id number] Univers 20:48:00 13:30:00 IFTIKHAR ity [facility] 2022-01-05 2022-01-07 [facility] Gianluca Rogers [facility] 1.2.840. 114 [id number] Univers 20:48:00 13:30:00 Encounter Iftikhar Aleman SHAJI 350.1.13.10 ity of [facility] 4.2.7.2.686 [facility] [id number] [facility] [address] 2022-01-03 2022-01-05 Inpatient X [place] [facility] [id number] Univers 14:27:00 10:35:00 GELA ity [facility] 2022-01-03 2022-01-05 [facility] Derrell Hartley [facility] 1.2.840.1 14 [id number] Univers 14:27:00 10:35:00 Encounter Cole Bolivar 350.1.13.10 ity of [place] Gelamicki [facility] 4.2.7.2.686 [facility] [id number] [facility] [address] 2022-01-05 2022-01-05 Telephone [facility] 1.2.800.938 [id number] Univers 00:00:00 00:00:00 Elizabeth GIRARD 350.1.13.10 ity of [facility] 4.2.7.2.686 [facility] s PROFESSIO [id number] Mn dical NAL 059 [facility] 2022-01-05 2022-01-05 Telephone [facility] 1.2.530.655 [id number] Univers 00:00:00 00:00:00 Elizabeth GIRARD 350.1.13.10 ity of [facility] 4.2.7.2.686 [facility] s PROFESSIO [id number] Mn dical NAL 059 [facility] 2022-01-05 2022-01-05 Telephone [facility] 1.2.328.361 [id number] Univers 00:00:00 00:00:00 Elizabeth GIRARD 350.1.13.10 ity of [facility] 4.2.7.2.[place] [id number] Mn dical NAL 059 [facility] 2022-01-03 2022-01-03 Outpatient R MAICO [facility] [id number] Univers 14:40:00 14:40:00 ELIZABETH ity o f [facility] 2022-01-02 2022-01-02 Office [facility] 1.2.840.114 [id number] Univers 11:00:00 11:30:00 Visit Russell GIRARD 350.1.13.10 i ty of [place] 4.2.7.2.686 [place] [id number] Mn dicca NAL 085 [facility] 2022-01-02 2022-01-02 Outpatient R RUSSELL LEZAMA [facility] 10 [id number] Univers 11:00:00 11:00:00 RUSSELL LEZAMA i ty of [facility] 2022-01-02 2022-01-02 Outpatient R RUSSELL LEZAMA [facility] 10 [id number] Univers 11:00:00 11:00:00 RUSSELL LEZAMA i ty of [facility] 2022-01-02 2022-01-02 Outpatient R RUSSELL LEZAMA [facility] 10 [id number] Univers 11:00:00 11:00:00 RUSSELL LEZAMA i ty of [facility] 2022-01-02 2022-01-02 Outpatient R RUSSELL LEZAMA [facility] 10 [id number] Univers 11:00:00 11:00:00 RUSSELL LEZAMA i ty of [facility] 2022-01-01 2022-01-01 [facility]phone [facility] 1.2.840.114 [id number] Univers 00:00:00 00:00:00 [facility] 350.1.13.10 it y of Jorge [facility] 4.2.7.2.686 Heraclio as ALFONSO?BLEA [id number] Mn dical KNEY 044 [facility] OFFICE [facility] 2021-12-21 2021-12-21 Outpatient [facility] [id number] Univers 08:45:00 09:09:10 KYLEE [facility] 2021-12-21 2021-12-21 Office [facility] 1.2.840.114 [id number] Univers 08:45:00 09:00:00 Visit [facility] 350.1.13.10 it y of Edward [place] 4.2.7.2.686 Heraclio as ALFONSO?BLEA [id number] [facility] KAMERON[address] OFFICE [facility] 2021-12-21 2021-12-21 Outpatient R [facility] [id number] Univers 08:45:00 08:45:00 [facility] 2021-12-13 2021-12-13 Telephone [facility] 1.2.840.114 [id number] [facility] 00:00:00 00:00:00 [facility] 350.1.13.10 it y of [place] 4.2.7.2.686 Heraclio as ALFONSO?BLEA [phone] [address] OFFICE [facility] 2021-12-07 2021-12-07 Outpatient R [facility] [id number] Univers 08:40:00 08:40:00 GODWINEDSON mairay o f [facility] 2021-12-04 2021-12-04 Telephone [facility] 1.2.840.114 [id number] [facility] 00:00:00 00:00:00 [facility] 350.1.13.10 it y of [place] 4.2.7.2.686 Heraclio as ALFONSO?BLEA [phone] [facility] [address] [place] [address] OFFICE [facility] 2021-11-30 2021-11-30 Outpatient R [facility] [id number] Univers 15:20:00 15:58:14 ELIZABETH ity o f [facility] 2021-11-30 2021-11-30 Office [facility] 1.2.840.114 [id number] Univers 15:20:00 15:58:14 Visit Elizabeth [place] 350.1.13.10 ity of [place] 4.2.7.2.686 [place] [id number] Mn dical NAL [address] [place] [address] 2021-11-30 2021-11-30 Outpatient R MAICO [facility] [id number] Univers 15:20:00 15:58:14 ELIZABETH medeiros o f [facility] 2021-11-30 2021-11-30 Telephone [facility] 1.2.840.114 [id number] Univers 00:00:00 00:00:00 Willa [facility] 350.1.13.10 ity of Mathieu [place] 4.2.7.2.686 [place] [id number] [facility] [address] OFFICE BUILDING 2021-11-30 2021-11-30 Orders Doctor EDITH 1.2.840.114 [id number] Univers 00:00:00 00:00:00 Only Unassigned, KIT 350.1.13.10 ity of [place] [facility] 4.2.7.2.686 Heraclio as [id number] [address] 2021-11-27 2021-11-27 Telephone [facility] 1.2.552.368 [id number] Univers 00:00:00 00:00:00 Elizabeth GIRARD 350.1.13.10 ity of [place] 4.2.7.2.686 [place] [id number] Mn rosa m ORDONEZ [address] [place] [address] 2021-11-24 2021-11-24 Office [facility] 1.2.840.114 [id number] Univers 11:15:00 11:45:00 Visit [facility] 350.1.13.10 it y of Jorge [place] 4.2.7.2.686 Heraclio as ALFONSO?BLEA [id number] Mn dical JOSE [address] [place] [address] OFFICE BUILDING 2021-11-24 2021-11-24 Outpatient R JESU [facility] [id number] Univers 11:15:00 11:15:00 KYLEE medeiros [facility] 2021-11-24 2021-11-24 Outpatient R JESU [facility] [id number] Univers 11:15:00 11:15:00 KYLEE medeiros [facility] 2021-11-24 2021-11-24 Orders Doctor EDITH 1.2.840.114 [id number] Univers 00:00:00 00:00:00 Only Unassigned, KIT 350.1.13.10 ity of [place] [facility] 4.2.7.2.686 Heraclio as [id number] [address] 2021-11-23 2021-11-23 [facility] 1.2.840.114 [id number] Univers 00:00:00 00:00:00 Kylee HEALTH 350.1.13.10 it y of [place] 4.2.7.2.686 Heraclio as ALFONSO?BLEA [id number] [address] MEDICAL OFFICE [facility] 2021-11-23 2021-11-23 Telephone [facility] 1.2.840.114 [id number] Univers 00:00:00 00:00:00 Kylee HEALTH 350.1.13.10 it y of [facility] 4.2.7.2.686 Heraclio as ALFONSO?BLEA [id number] [address] OFFICE [facility] 2021-11-23 2021-11-23 [facility] 1.2.840.114 [id number] Univers 00:00:00 00:00:00 Kylee PRIMARY 350.1.13.10 it y of [place] C[place] 4.2.7.2.[place] [id number] [address] 2021-11-23 2021-11-23 [facility] 1.2.840.114 [id number] Univers 00:00:00 00:00:00 Kylee PRIMARY 350.1.13.10 it y of [place] CARE 4.2.7.2.686 [place] [id number] [facility] [address] 2021-11-23 2021-11-23 Orders Doctor EDTIH 1.2.840.114 [id number] Univers 00:00:00 00:00:00 Only Unassigned, KIT 350.1.13.10 ity of [place] [facility] 4.2.7.2.686 Heraclio as [id number] [address] 2021-11-22 2021-11-22 Emergency X [facility] ERT [id number] Univers 07:09:00 13:16:00 COBY itethan [facility] 2021-11-22 2021-11-22 Emergency [facility] 1.2.840.114 [id number] Univers 07:09:00 13:16:00 Coby GIRARD 350.1.13.10 ity of [place]2.7.2.686 [place] [id number] [facility] [address] 2021-11-22 2021-11-22 Emergency X [facility] ERT [id number] Univers 07:09:00 13:16:00 [facility] 2021-11-21 2021-11-21 Transition BRUNO Garcia 1.2.840.114 [id number] Univers 00:00:00 00:00:00 of Raquel WOODALL 350.1.13.10 it y of [place] 4.2.7.2.686 [place] [id number] [facility] [address] 2021-11-21 2021-11-21 Telephone [facility] 1.2.840.114 [id number] Univers 00:00:00 00:00:00 [facility] 350.1.13.10 it y of Jorge [place] 4.2.7.2.686 Heraclio as ALFONSO?BLEA [id number] [facility] [address] MEDICAL OFFICE BUILDING 2021-11-21 2021-11-21 Telephone [facility] 1.2.840.114 [id number] Univers 00:00:00 00:00:00 ITZ Crouch 350.1.13.10 ity of [place] 4.2.7.2.686 [place] [id number] [facility] [address] OFFICE BUILDING 2021-11-16 2021-11-20 In[facility] [id number] Univers 10:06:00 18:50:00 WILLA ity of [facility] 2021-11-16 2021-11-20 [facility] Tiara Johnson 1 .2.840.114 [id number] Univers 10:06:00 18:50:00 Encounter Mathieu Paris 350.1.13.10 ity of [facility] 4.2.7.2.686 Heraclio as [id number] [facility] [address] 2021-11-17 2021-11-17 Telephone NOEMY Johnson 1.2.840.114 [id number] Univers 00:00:00 00:00:00 [facility] 350.1.13.10 i ty of [facility] 4.2.7.2.[place] [id number] [facility] [address] 2021-11-16 2021-11-16 Outpatient Luz Maria BARRERA [facility] [id number] Univers 09:45:00 10:14:33 MARY [facility] 2021-11-16 2021-11-16 Nurse Nurse, [facility] 1.2.840.114 [id number] Univers 09:45:00 10:05:00 Visit Unknown, [facility] 350.1.13.10 ity [facility] 4.2.7.2.686 Heraclio as ALFONSO?BLEA [phone] [facility] [address] MEDICAL OFFICE [facility] 2021-11-15 2021-11-15 [facility] 1.2.840.114 [id number] Univers 00:00:00 00:00:00 [facility] 350.1.13.10 it y of [place] 4.2.7.2.686 Heraclio as ALFONSO?BLEA [phone] [facility] 044 [facility] OFFICE [facility] 2021-11-14 2021-11-14 [facility] 1.2.840.114 [id number] Univers 00:00:00 00:00:00 [facility] 350.1.13.10 it y of [place] 4.2.7.2.686 Heraclio as ALFONSO?BLEA [id number] [facility] [address] MEDICAL OFFICE [facility] 2021-10-11 2021-10-11 Telephone [facility] 1.2.840.114 [id number] Univers 00:00:00 00:00:00 [facility] 350.1.13.10 it y of [place] 4.2.7.2.686 Heraclio as ALFONSO?BLEA [id number] Mn rosa m PAVON [address] MEDICAL OFFICE [facility] 2021-10-06 2021-10-06 [facility], Ang - Db [facility] 1.2.840.1 14 [id number] Univers 14:15:00 14:30:00 Visit Kylee Nails [facility] 350.1.13 .10 ity of [place] 4.2.7.2.686 Heraclio as ALFONSO?BLEA [phone] Mn rosa m GARCIA [address] MEDICAL OFFICE [facility] 2021-10-06 2021-10-06 Outpatient R JESU [facility] [id number] Univers 14:15:00 14:15:00 KYLEE [facility] 2021-10-06 2021-10-06 [facility] 1.2.840.114 [id number] Univers 14:00:00 14:15:00 Visit [facility] 350.1.13.10 it y of [facility] 4.2.7.2.686 Heraclio as ALFONSO?BLEA [phone] Mn rosa m [facility] [address] MEDICAL OFFICE [facility] 2021-10-06 2021-10-06 Outpatient R JESU [facility] [id number] Univers 14:00:00 14:00:00 KYLEE [facility] 2021-09-28 2021-09-28 [facility] JenyjackieLADY [id number] Univers 12:18:00 23:59:00 Encounter Juancho Orly [id number] ity of [facility] [id number] Heraclio as [phone] [address] 2021-09-28 2021-09-28 Outpatient R CATINA [facility] ACO [id number] Univers 00:00:00 23:59:00 JUANCHO [facility] 2021-09-27 2021-09-27 Outpatient R GIANNI [facility] [id number] Univers 10:00:00 10:24:31 RICKY [facility] 2021-09-27 2021-09-27 Urgent Mary Mccormack [facility] [id number] Univers 10:00:00 10:24:31 Care Ricky Balderas [facility] [id number] ity of [place] [id number] Heraclio as ALFONSO?BLEA [phone] Mn dicsusie PAVON [address] [facility] 2021-09-20 2021-09-20 [facility], Ang - [facility] [id number] Univers 11:30:00 11:45:00 Visit Kylee Nails david [facility] [id number] .10 ity of [place] [id number] Heraclio as ALFONSO?BLEA [phone] Mn rosa m [facility] [address] [facility] OFFICE [facility] 2021-09-20 2021-09-20 Outpatient R [facility] [id number] Univers 11:30:00 11:30:00 [facility] 2021-09-20 2021-09-20 Office [facility] [id number] Univers 11:15:00 11:30:00 Visit [facility] [id number] it y of Jorge [place] [id number] Heraclio as ALFONSO?BLEA [phone] Mn rosa m GARCIA 044 [facility] OFFICE [facility] 2021-09-20 2021-09-20 [facility] [place] [id number] Univers 11:15:00 11:15:00 KYLEE [facility] 2021-09-18 2021-09-18 Urgent Mary Mccormack [facility] .2.840.114 [id number] Univers 10:40:00 10:40:00 [facility] 350.1.13.10 ity of [place] 4.2.7.2.686 Heraclio as ALFONSO?BLEA [phone] Mn rosa m [facility] [address] [place] [facility] 2021-09-18 2021-09-18 [facility] [id number] Univers 10:40:00 10:39:25 JB mairay o f [facility] 2021-09-172021-09-17 [facility] 1.2.840.114 [id number] Univers 00:00:00 00:00:00 [facility] 350.1.13.10 it y of [place] 4.2.7.2.686 Heraclio as PROFESSIO [phone] [address] ONE 2021-09-13 2021-09-13 Outpatient R SHANAE [facility] [id number] Univers 09:40:00 10:00:59 JB ity o f [facility] 2021-09-13 2021-09-13 Urgent Shanae [facility] 1.2.840. 114 [id number] Univers 09:40:00 10:00:[address] [facility] 350.1.13.10 ity of [place] 4.2.7.2.686 Heraclio as ALFONSO?BLEA [phone] [address] OFFICE [facility] 2021-09-13 2021-09-13 Letter Doctor EDITH 1.2.840.114 [id number] Univers 00:00:00 00:00:00 (Out) Unassigned, KIT 350.1.13.10 ity of [place] [facility] 4.2.7.2.686 Heraclio as [phone] [address] 2021-09-13 2021-09-13 [facility]ill [facility] 1.2.840.114 [id number] Univers 00:00:00 00:00:00 [facility] 350.1.13.10 i ty of [place] 4.2.7.2.686 Heraclio as ALFONSO?BLEA [phone] [address] OFFICE [facility] 2021-08-08 2021-08-08 Outpatient Luz Maria NAILS [facility] [id number] Univers 09:00:00 09:38:05 KYLEE medeiros [facility] 2021-07-24 2021-07-24 [facility]ill [facility] 1.2.840.114 [id number] Univers 00:00:00 00:00:00 [facility] 350.1.13.10 it y of [place] 4.2.7.2.686 Heraclio as ALFONSO?BLEA [phone] Mn rosa m GARCIA 044 [facility] OFFICE [facility] 2021-06-28 2021-06-28 Telephone [facility] 1.2.840.114 [id number] Univers 00:00:00 00:00:00 [facility] 350.1.13.10 it y of [place] 4.2.7.2.686 Heraclio as ALFONSO?BLEA [phone] Mn rosa m GARCIA 044 [place] [facility] 2021 2021 Outpatient R SHAMEKA [facility] [id number] Univers 13:30:00 14:20:41 RENATO ity [facility] 2021 2021 Office [facility] 1.2.840.114 [id number] Univers 13:19:16 14:20:41 Visit [facility] 350.1.13.10 it y of [place] 4.2.7.2.686 Heraclio as ALFONSO?BLEA [phone] Mn rosa m GARCIA 198 [facility] OFFICE [facility] 2021-05-02 2021-05-02 [facility] 1.2.840.114 [id number] Univers 12:54:55 23:59:00 Encounter Mattchrisedson SHAJI 350.1.13.10 ity of [facility] 4.2.7.2.686 [facility] [phone] [address] 2021-05-02 2021-05-02 Outpatient R MAICO [facility] [id number] Univers 12:53:30 12:53:30 GODWINEDSON mairay o f [facility] 2021-05-02 2021-05-02 [facility] 1.2.840.114 [id number] Univers 12:53:30 12:53:30 Encounter Godwinedson SHAJI 350.1.13.10 ity of [facility] 4.2.7.2.686 [phone] [address] 2021-05-01 2021-05-01 Telephone [facility] 1.2.840.114 [id number] Univers 00:00:00 00:00:00 Dario DEY 350.1.13.10 it y of [place] 4.2.7.2.686 Heraclio as ALFONSO?BLEA [phone] Mn rosa m GARCIA 198 [facility] OFFICE [facility] 2021-04-26 2021-04-26 Outpatient R LORI [facility] [id number] Univers 15:40:00 15:40:00 DARIO medeiros [facility] 2021-04-26 2021-04-26 Outpatient R LORI [facility] [id number] Univers 15:15:00 15:35:40 DARIO medeiros [facility] 2021-04-26 2021-04-26 Office [facility] 1.2.445.209 [id number] Univers 14:55:29 15:35:40 Visit Dario DEY 350.1.13.10 it y of [place] 4.2.7.2.686 Heraclio as ALFONSO?BLEA [phone] Mn rosa m GARCIA 198 [facility] OFFICE [facility] 2021-04-26 2021-04-26 Nurse Nurse, Darrel Velasco [facility] 1.2.840.114 [id number] Univers 14:59:48 15:19:48 Visit Dario Sandoval 350.1.13.10 ity of [place] 4.2.7.2.686 Heraclio as ALFONSO?BLEA [phone] Mn rosa m GARCIA 044 [facility] OFFICE [facility] 2021-04-26 2021-04-26 Outpatient R LORI [facility] [id number] Univers 15:15:00 15:15:00 DARIO medeiros [facility] 2021-04-26 2021-04-26 Outpatient R LORI [facility] [id number] Univers 15:15:00 15:15:00 DARIO medeiros [facility] 2021-04-25 2021-04-25 Marry Nails [facility] 1.2.840.114 [id number] Univers 00:00:00 00:00:00 Kylee StuffBuff 350.1.13.10 it y of [place] 4.2.7.2.686 Heraclio as ALFONSO?BLEA [phone] Mn rosa m GARCIA 044 [facility] OFFICE BUILDING 2021-04-23 2021-04-23 Marry Nails [facility] 1.2.840.114 [id number] Univers 00:00:00 00:00:00 [facility] 350.1.13.10 it y of [place] 4.2.7.2.686 Heraclio as PROFESSIO [phone] Mn dical NAL [address] [place] OFFICE [facility]ILDING ONE 2021-04-21 2021-04-21 Plater Barrel 2, Adc Lab [facility] 1.2.840.114 [id number] Univers 10:30:13 10:45:13 Visit Elizabeth Nina 350.1.13.10 ity of [facility] 4.2.7.2.[place] [phone] Mn dical NAL 353 [facility] 2021-04-21 2021-04-21 Outpatient R MAICO, [facility] [id number] Univers 09:40:00 10:14:39 ELIZABETH medeiros o [facility] 2021-04-21 2021-04-21 Outpatient R MAICO, [facility] [id number] Univers 09:40:00 10:14:39 ELIZABETH medeiros o [facility] 2021-04-21 2021-04-21 Outpatient R MAICO, [facility] [id number] Univers 09:40:00 10:14:39 ELIZABETH medeiros [facility] 2021-04-21 2021-04-21 Office Maico, [facility] 1.2.840.114 [id number] Univers 09:35:31 10:14:39 Visit Elizabeth GIRARD 350.1.13.10 ity of [facility] 4.2.7.2.[place] [phone] Mn dical NAL 059 [facility] 2021-04-21 2021-04-21 Outpatient R MAICO, [facility] [id number] Univers 09:40:00 09:40:00 ELIZABETH medeiros [facility] 2021-04-20 2021-04-20 Outpatient R GIANNI, [facility] [id number] Univers 10:55:38 23:59:00 RICKY ity [facility] 2021-04-20 2021-04-20 [facility] 1.2.249.763 [id number] Univers 10:55:38 23:59:00 Encounter Ricky HEALTH 350.1.13.10 ity of [place] 4.2.7.2.686 Heraclio as ALFONSO?BLEA [phone] Mn rosa m GARCIA 8[address] [place] [facility] 2021-04-20 2021-04-20 [facility] 1.2.840.114 [id number] Univers 10:36:52 11:13:07 Care Ricky HEALTH 350.1.13.10 it y of [place] 4.2.7.2.686 Heraclio as ALFONSO?BLEA [phone] Mn rosa m GARCIA 370 [facility] OFFICE [facility] 2021-04-20 2021-04-20 Telephone [facility] 1.2.840.114 [id number] Univers 00:00:00 00:00:00 Kylee HEALTH 350.1.13.10 it y of [place] 4.2.7.2.686 Heraclio as ALFONSO?BLEA [phone] Mn rosa m GARCIA 044 [place] [facility] 2021-04-18 2021-04-18 [facility] 1.2.840.114 [id number] Univers 00:00:00 00:00:00 Kylee HEALTH 350.1.13.10 it y of [place] 4.2.7.2.686 Heraclio as ALFONSO?BLEA [phone] Mn rosa m GARCIA 044 [place] [facility] 2021-03-16 2021-03-16 [facility] 1.2.840.114 [id number] Univers 00:00:00 00:00:00 Kylee Health 350.1.13.10 it y of [place] 4.2.7.2.686 Heraclio as Alfonso?Blea [phone] Mn dicsusei garcia 044 [place] [facility] Office [facility] 2021-02-23 2021-02-23 [facility] 1.2.840.114 [id number] Univers 00:00:00 00:00:00 Kylee Health 350.1.13.10 it y of [place] 4.2.7.2.686 Heraclio as Alfonso?Blea [phone] Mn rosa m garcia [address] [place] [address] Office Building 2021-02-08 2021-02-08 Office [facility] 1.2.840.114 [id number] Univers 14:04:11 14:40:57 Visit [facility] 350.1.13.10 it y of [place] 4.2.7.2.686 Heraclio as Alfonso?Blea [phone] [facility] kameron[address] Office [facility] 2021-02-08 2021-02-08 [facility] [id number] Univers 14:15:00 14:15:00 KYLEE medeiros [facility] 2021-02-08 2021-02-08 Telephone [facility] 1.2.840.114 [id number] Univers 00:00:00 00:00:00 [place] 9[address]26.1.13.10 it y of [place] 4.2.7.2.686 Heraclio as Alfonso?Blea [phone] [address] Office [facility] 2021-01-11 2021-01-11 Outpatient [facility] [id number] Univers 09:40:00 09:40:00 ELIZABETH calloway f [facility] 2020-12-19 2020-12-19 Refill [facility] 1.2.840.114 [id number] Univers 00:00:00 00:00:00 [facility] 350.1.13.10 it y of [place] 4.2.7.2.686 Heraclio as Professio [phone] [address] Office [facility] One 2020-12-08 2020-12-08 Telephone [facility] 1.2.840.114 [id number] Univers 00:00:00 00:00:00 [facility] 350.1.13.10 it y of [place] 4.2.7.2.686 Heraclio as Professio [phone] [address] Office [facility] One 2020-12-08 2020-12-08 [facility]ill [facility] 1.2.843.063 [id number] Univers 00:00:00 00:00:00 [facility] 350.1.13.10 it y of [place] 4.2.7.2.686 Heraclio as PROFESSIO [phone] Mn dicca NAL 044 [facility] ONE 2020-12-07 2020-12-07 Office Jesu [facility] 1.2.840.114 [id number] Univers 15:06:40 15:43:38 Visit [facility] 350.1.13.10 it y of [place] 4.2.7.2.686 Heraclio as Professio [phone] Mn dicca nal 044 [facility] One 2020-12-07 2020-12-07 Outpatient R JESU [facility] [id number] Univers 15:15:00 15:15:00 KYLEE ity [facility] 2020-10-11 2020-10-11 Office [facility] 1.2.840.114 [id number] Univers 09:35:48 10:11:54 Visit [facility] 350.1.13.10 ity of [place].2.7.2.[place] Profess[place] [phone] [facility] 059 [facility] 2020-10-11 2020-10-11 Outpatient R MAICO [facility] [id number] Univers 09:40:00 09:40:00 MATTJERAMY ity o f [facility] 2020-09-06 2020-09-06 [facility] 1.2.840.114 [id number] Univers 00:00:00 00:00:00 [facility] 350.1.13.10 it y of [place] 4.2.7.2.686 Heraclio as Professio [phone] [facility] nal [address] [place] [address] One 2020-08-30 2020-08-30 Refrolo [facility] 1.2.840.114 [id number] Univers 00:00:00 00:00:00 [facility] 350.1.13.10 it y of [place] 4.2.7.2.686 Heraclio as Professio [phone] Me dical nal 044 [facility] One 2020-08-17 2020-08-17 Telephone [facility] 1.2.840.114 [id number] Univers 00:00:00 00:00:00 [facility] 350.1.13.10 it y of [place] 4.2.7.2.686 Heraclio as Professio [phone] Mn dicca nal 044 [facility] One 2020-07-19 2020-07-19 Outpatient R ANUSHKA [facility] [id number] Univers 14:50:00 14:50:00 MIRIAM [facility] 2020-07-12 2020-07-12 Office [facility] 1.2.840.114 [id number] Univers 08:54:51 09:17:02 Visit Elizabeth [place] 350.1.13.10 ity [facility] 4.2.7.2.686 [place] Profess[place] [phone] Mn [facility] 059 [facility] 2020-07-12 2020-07-12 Outpatient R MAICO [facility] [id number] Univers 09:00:00 09:00:00 ELIZABETH mala o f [facility] 2020-06-29 2020-06-29 Office [facility] 1.2.840.114 [id number] Univers 09:50:39 10:05:39 Visit [facility] 350.1.13.10 it y of [place] 4.2.7.2.686 Heraclio as Professio [phone] [address] 2020-06-29 2020-06-29 Outpatient R JESU [facility] [id number] Univers 10:00:00 10:00:00 KYLEE [facility] 2020-06-21 2020-06-21 Outpatient R ANUSHKA [facility] [id number] Univers 15:40:00 15:40:00 [facility] 2020-06-08 2020-06-08 Telephone [facility] 1.2.840.114 [id number] Univers 00:00:00 00:00:00 [facility] 350.1.13.10 it y of [place] 4.2.7.2.686 Heraclio as Professio [phone] Mn dical nal 044 [facility] 2020 2020 Telephone [facility] 1.2.840.114 [id number] Univers 00:00:00 00:00:00 Kylee [facility] 350.1.13.10 it y of [place] 4.2.7.2.686 Heraclio as Professio [phone] [facility] 044 [facility] One 2020 2020 Telephone [facility] 1.2.840.114 [id number] Univers 00:00:00 00:00:00 [facility] 350.1.13.10 it y of [place] 4.2.7.2.686 Heraclio as Professio [phone] Mn [facility] 044 [facility] One 2020-04-12 2020-04-12 Telephone [facility] 1.2.552.965 [id number] Univers 00:00:00 00:00:00 [facility] 350.1.13.10 i ty of [place] 4.2.7.2.686 [place] [phone] [facility] 059 [facility] 2020-04-11 2020-04-11 Plater Barrel 2, Adc Lab [facility] 1.2.840.114 [id number] Univers 13:54:52 14:09:52 Visit Elizabeth Nina 350.1.13.10 ity of [place] 4.2.7.2.686 [place] [phone] [facility] 353 [facility] 2020-04-11 2020-04-11 Office [facility] 1.2.840.114 [id number] Univers 13:02:24 13:45:56 Visit Godwinedson Girard 350.1.13.10 ity of [place] 4.2.7.2.686 [place] Profess[place] [phone] Mn apryl[address] 2020-04-11 2020-04-11 Outpatient R MAICO [facility] [id number] Univers 13:20:00 13:20:00 ELIZABETH guaman [facility] 2020-03-09 2020-03-09 Office [facility] 1.2.840.114 [id number] Univers 13:06:02 13:55:00 Visit Elizabeth Girard 350.1.13.10 ity of [place] 4.2.7.2.686 [place] [phone] [facility] 059 [facility] 2020-03-09 2020-03-09 Outpatient R [facility] [id number] Univers 13:20:00 13:20:00 ELIZABETH guaman [facility] 2020-03-08 2020-03-08 Outpatient R [facility] [id number] Univers 10:00:00 10:00:00 ELIZABETH guaman [facility] 2020-03-04 2020-03-04 Refill [facility] 1.2.840.114 [id number] Univers 00:00:00 00:00:00 Kylee Dey 350.1.13.10 it y of [place] 4.2.7.2.686 Heraclio as Professio [phone] [facility] 044 [facility] One 2020-03-01 2020-03-01 Telephone [facility] 1.2.179.759 [id number] Univers 00:00:00 00:00:00 Elizabeth Girard 350.1.13.10 ity of [place] 4.2.7.2.686 [place] [phone] [facility] nal 059 [facility] 2020-02-05 2020-02-29 Office [facility] 1.2.840.114 [id number] Univers 09:40:49 21:34:55 Visit Elizabeth Girard 350.1.13.10 ity of [place] 4.2.7.2.686 [place] [phone] [facility] nal [address] [place] [address] 2020-02-23 2020-02-23 Nurse Visit, [facility] Nurse [facility] 1.2.840.1 14 [id number] Univers 15:56:48 16:22:45 Visit Kylee Nails 350.1.1 3.10 ity of Luci [place] 4.2.7.2.686 [place] Professio [phone] Mn dical nal 059 [facility] 2020-02-23 2020-02-23 Office [facility] 1.2.840.114 [id number] 006 [facility] 11:22:08 11:50:33 Visit [facility] 350.1.13.10 it y of [place] 4.2.7.2.686 Heraclio as Professio [phone] [facility] nal 044 [facility] One 2020-02-23 2020-02-23 Outpatient R [facility] [id number] Univers 11:30:00 11:30:00 KYLEE ity [facility] 2020-02-23 2020-02-23 Telephone [facility] 1.2.479.620 [id number] Univers 00:00:00 00:00:00 Elizabeth Girard 350.1.13.10 ity of [place]2.7.2.686 [place] Profess[place] [phone] [facility] nal [address] [place] [address] 2020-02-11 2020-02-11 Telephone [facility] 1.2.529.019 [id number] Univers 00:00:00 00:00:00 Elizabeth Girard 350.1.13.10 ity of [place] 4[place]2.7.2.686 [place] Profess[place] [phone] Mn dical nal 9 [facility] 2020-02-09 2020-02-09 Laboratory Pc, Adc Echo Room 1 - [facility] 1 .2.840.114 [id number] Univers 12:52:01 13:51:58 Only Elizabeth Nina 350.1.13.10 ity of Luci [place] 4.2.7.2.686 [place] Professio [phone] Mn dical nal [address] [place] [address] 2020-02-09 2020-02-09 Outpatient R [facility] [id number] Univers 13:00:00 13:00:00 ity [facility] 2020-02-09 2020-02-09 Telephone [facility] 1.2.663.597 [id number] Univers 00:00:00 00:00:00 Elizabeth Girrad 350.1.13.10 ity of [place] 4.2.7.2.686 [place] [facility] [phone] Mn dical [facility] 059 [facility] 2020-02-09 2020-02-09 Orders Doctor EDITH 1.2.840.114 [id number] Univers 00:00:00 00:00:00 Only Unassigned, KIT 350.1.13.10 ity of [place] [facility] 4.2.7.2.686 Heraclio as [phone] [facility] 009 [place] 2020-02-05 2020-02-05 Outpatient R [facility] [id number] Univers 09:40:00 09:40:00 ELIZABETH mala o f [facility] 2020-02-03 2020-02-03 Outpatient R [facility] [id number] Univers 13:20:00 13:20:00 GODWINEDSON mala o f [facility] 2020-01-27 2020-01-27 Emergency [facility] 1.2.840.114 [id number] Univers 07:54:00 12:08:00 Coby Girard 350.1.13.10 ity of [place] 4.2.7.2.686 [place] [phone] [facility] 084 [place] 2020-01-27 2020-01-27 Orders Doctor EDITH 1.2.840.114 [id number] Univers 00:00:00 00:00:00 Only Unassigned, KIT 350.1.13.10 ity of [place] [facility] 4.2.7.2.686 Heraclio as [phone] [facility] 009 [place] 2020-01-27 2020-01-27 Letter EDITH Curiel 1.2.840.114 [id number] Univers 00:00:00 00:00:00 (Out) Sulema PANTOJA 350.1.13.10 it y of HOSPITAL 4.2.7.2.686 Heraclio as [phone] [facility] 019 [place] 2020-01-26 2020-01-26 Urgent Pob1, Acute Care Clinic [facility] 1. 2.840.114 [id number] Univers 10:41:05 11:11:02 Binu Berrios [facility] 350.1.13.10 ity of [place] 4.2.7.2.686 Heraclio as Professio [phone] [address] 2020-01-26 2020-01-26 Outpatient R VIVIAN [facility] [id number] Univers 10:40:00 10:40:00 BINU ethan [facility] 2020-01-25 2020-01-25 Telephone [facility] 1.2.840.114 [id number] Univers 00:00:00 00:00:00 [facility] 350.1.13.10 it y of [place] 4.2.7.2.686 Heraclio as Professio [phone] [address] 2019-12-28 2019-12-28 Office [facility] 1.2.840.114 [id number] Univers 10:23:12 10:38:12 Visit Kylee Villanuevaton 350.1.13.10 i ty of [place] 4.2.7.2.[place] [phone] [address] 2019-12-28 2019-12-28 Outpatient R [facility] [id number] Univers 10:00:00 10:00:00 KYLEE [facility] 2019-12-10 2019-12[facility] 1.2.840.114 [id number] Univers 00:00:00 00:00:00 [facility] 350.1.13.10 it y of [place] 4.2.7.2.686 Heraclio as Professio [phone] [address] 2019-11-03 2019-11-03 [facility] 1.2.840.114 [id number] Univers 00:00:00 00:00:00 [facility] 350.1.13.10 it y of [place] 4.2.7.2.686 Heraclio as Professio [phone] [address] 2019-09-29 2019-09-29 [facility] 1.2.840.114 [id number] Univers 00:00:00 00:00:00 [facility] 350.1.13.10 it y of [place] 4.2.7.2.686 Heraclio as Professio [phone] [address] One 2019-09-21 2019-09-21 [facility] 1.2.840.114 [id number] Univers 00:00:00 00:00:00 [facility] Health 350.1.13.10 it y of [place] 4.2.7.2.686 Heraclio as Professio [phone] [address] One 2019-09-15 2019-09-15 [facility] 1.2.840.114 [id number] Univers 00:00:00 00:00:00 [facility] Health 350.1.13.10 it y of [place] 4.2.7.2.686 Heraclio as Professio [phone] [address] 2019-07-28 2019-07-28 [facility] 1.2.840.114 [id number] Univers 00:00:00 00:00:00 [facility] 350.1.13.10 it y of [place] 4.2.7.2.686 Heraclio as Professio [phone] [address] 2019-06-24 2019-06-24 Orders Doctor SHARMA 1.2.840.114 [id number] Univers 00:00:00 00:00:00 Only Unassigned, KIT 350.1.13.10 ity of [place] [facility] 4.2.7.2.686 Heraclio as [phone] [address] 2019-02-10 2019-02-10 Telephone [facility] 1.2.840.114 [id number] Univers 00:00:00 00:00:00 [facility] Health 350.1.13.10 it y of [place] 4.2.7.2.686 Heraclio as Professio [phone] [address] Office [facility] One 2019-02-09 2019-02-09 EDITH Verma 1.2.840.114 [id number] Univers 00:00:00 00:00:00 Triage Marlene PANTOJA 350.1.13.10 ity of HOSPITAL 4.2.7.2.686 [place] as [phone] [facility] [address] [place] 2019-02-06 2019-02-06 Office [facility] 1.2.840.114 [id number] Univers 15:28:58 15:58:15 Visit [facility] 350.1.13.10 it y of [place] 4.2.7.2.686 [place] Professio [phone] [address] [facility] 2019-02-06 2019-02-06 Refill [facility] 1.2.840.114 [id number] Univers 00:00:00 00:00:00 Kylee [facility] [id number] it y of [place] 4.2.7.2.686 [place] Professio [phone] [address] 2019-02-06 2019-02-06 Telephone [facility] 1.2.840.114 [id number] Univers 00:00:00 00:00:00 [facility] 350.1.13.10 it y of [place] 4.2.7.2.686 [place] Professio [phone] [address] 2019-02-05 2019-02-05 [facility] [id number] [id number] Univers 08:07:47 10:53:00 Taras Girard 350.1.13.10 i ty of [place] 4[place]2.7.2.[place] [phone] [facility] [address] [place] 2019-02-05 2019-02-05 Orders Doctor EDITH 1.2.840.114 [id number] Univers 00:00:00 00:00:00 Only Unassigned, KIT 350.1.13.10 ity of [place] [facility] 4.2.7.2.686 [place] [phone] [facility] [address] [place] Results Test Description Test Time Test Comments Results Result Comments Source POCT GLUCOSE (AUTOMATED) 2022-12-05 17:12:46 Test Item Value Reference Range Interpretation Comme nts POCT GLU (test code = 0114085146) 198 mg/dL 70-110 H Lab Interpretation (test code = 83635-4) Abnormal [facility] GLUCOSE (AUTOMATED)2022-12-05 13:38:47 Test Item Value Reference Range Interpretation Comments POCT GLU (test code = 1079693167) 137 mg/dL 70-110 H Lab Interpretation (test code = Abnormal 25985-2) [facility] GLUCOSE (AUTOMATED)2022-12-05 04:24:46 Test Item Value Reference Range Interpretation Comments POCT GLU (test code = 4177539653) 268 mg/dL 70-110 H Lab Interpretation (test code = Abnormal 77416-8) [facility] GLUCOSE (AUTOMATED)2022-12-05 01:34:20 Test Item Value Reference Range Interpretation Comments POCT GLU (test code = 5065948371) 311 mg/dL 70-110 H Lab Interpretation (test code = Abnormal 72317-2) [facility] GLUCOSE (AUTOMATED)2022-12-04 22:28:20 Test Item Value Reference Range Interpretation Comments POCT GLU (test code = 4031026365) 214 mg/dL 70-110 H Lab Interpretation (test code = Abnormal 28229-1) [facility] GLUCOSE (AUTOMATED)2022-12-04 17:32:00 Test Item Value Reference Range Interpretation Comments POCT GLU (test code = 6542031478) 240 mg/dL 70-110 H Lab Interpretation (test code = Abnormal 29929-5) [facility] GLUCOSE (AUTOMATED)2022-12-04 13:13:19 Test Item Value Reference Range Interpretation Comments POCT GLU (test code = 4049322059) 173 mg/dL 70-110 H Lab Interpretation (test code = Abnormal 19461-2) [facility] GLUCOSE (AUTOMATED)2022-12-04 01:35:45 Test Item Value Reference Range Interpretation Comments POCT GLU (test code = 3149053326) 212 mg/dL 70-110 H Lab Interpretation (test code = Abnormal 68707-0) [facility] GLUCOSE (AUTOMATED)2022-12-03 22:08:12 Test Item Value Reference Range Interpretation Comments POCT GLU (test code = 1652940397) 281 mg/dL 70-110 H Lab Interpretation (test code = Abnormal 99092-2) [facility] 21:45:43 Test Item Value Reference Range Interpretation Comments POCT GLU (test code = 2078721797) 212 mg/dL 70-110 H Lab Interpretation (test code = Abnormal 91549-3) [facility] GLUCOSE (AUTOMATED)2022-12-03 17:55:25 Test Item Value Reference Range Interpretation Comments POCT GLU (test code = 0210825043) 239 mg/dL 70-110 H Lab Interpretation (test code = Abnormal 21109-1) [facility] GLUCOSE (AUTOMATED)2022-12-03 17:55:25 Test Item Value Reference Range Interpretation Comments POCT GLU (test code = 3902534703) 239 mg/dL 70-110 H Lab Interpretation (test code = Abnormal 91873-8) [facility] GLUCOSE (AUTOMATED)2022-12-03 13:10:15 Test Item Value Reference Range Interpretation Comments POCT GLU (test code = 0448595921) 203 mg/dL 70-110 H Lab Interpretation (test code = Abnormal 97210-1) [facility] GLUCOSE (AUTOMATED)2022-12-03 13:10:15 Test Item Value Reference Range Interpretation Comments POCT GLU (test code = 2645521212) 203 mg/dL 70-110 H Lab Interpretation (test code = Abnormal 85935-5) [facility] GLUCOSE (AUTOMATED)2022-12-03 00:49:14 Test Item Value Reference Range Interpretation Comments POCT GLU (test code = 7234944606) 207 mg/dL 70-110 H Lab Interpretation (test code = Abnormal 28075-6) [facility] GLUCOSE (AUTOMATED)2022-12-03 00:49:14 Test Item Value Reference Range Interpretation Comments POCT GLU (test code = 8266047455) 207 mg/dL 70-110 H Lab Interpretation (test code = Abnormal 56294-1) [facility] GLUCOSE (AUTOMATED)2022-12-02 22:35:38 Test Item Value Reference Range Interpretation Comments POCT GLU (test code = 4514069292) 212 mg/dL 70-110 H Lab Interpretation (test code = Abnormal 40723-3) [facility] GLUCOSE (AUTOMATED)2022-12-02 22:35:38 Test Item Value Reference Range Interpretation Comments POCT GLU (test code = 3249728969) 212 mg/dL 70-110 H Lab Interpretation (test code = Abnormal 88337-8) [facility] GLUCOSE (AUTOMATED)2022-12-02 17:30:40 Test Item Value Reference Range Interpretation Comments POCT GLU (test code = 5504007069) 210 mg/dL 70-110 H Lab Interpretation (test code = Abnormal 78571-1) [facility] GLUCOSE (AUTOMATED)2022-12-02 17:30:40 Test Item Value Reference Range Interpretation Comments POCT GLU (test code = 0653216019) 210 mg/dL 70-110 H Lab Interpretation (test code = Abnormal 21983-6) [facility] GLUCOSE (AUTOMATED)2022-12-02 12:56:59 Test Item Value Reference Range Interpretation Comments POCT GLU (test code = 6380235499) 209 mg/dL 70-110 H Lab Interpretation (test code = Abnormal 69877-2) [facility] GLUCOSE (AUTOMATED)2022-12-02 12:56:59 Test Item Value Reference Range Interpretation Comments POCT GLU (test code = 4554834670) 209 mg/dL 70-110 H Lab Interpretation (test code = Abnormal 54006-2) [facility] GLUCOSE (AUTOMATED)2022-12-02 01:01:38 Test Item Value Reference Range Interpretation Comments POCT GLU (test code = 5090113602) 291 mg/dL 70-110 H Lab Interpretation (test code = Abnormal 63627-6) [facility] GLUCOSE (AUTOMATED)2022-12-02 01:01:38 Test Item Value Reference Range Interpretation Comments POCT GLU (test code = 4936967587) 291 mg/dL 70-110 H Lab Interpretation (test code = Abnormal 89705-1) [facility] GLUCOSE (AUTOMATED)2022-12-01 23:12:37 Test Item Value Reference Range Interpretation Comments POCT GLU (test code = 7792649281) 235 mg/dL 70-110 H Lab Interpretation (test code = Abnormal 98743-7) [facility] GLUCOSE (AUTOMATED)2022-12-01 23:12:37 Test Item Value Reference Range Interpretation Comments POCT GLU (test code = 3613351378) 235 mg/dL 70-110 H Lab Interpretation (test code = Abnormal 26581-8) [facility] GLUCOSE (AUTOMATED)2022-12-01 17:35:00 Test Item Value Reference Range Interpretation Comments POCT GLU (test code = 7034846309) 248 mg/dL 70-110 H Lab Interpretation (test code = Abnormal 63712-7) [facility] GLUCOSE (AUTOMATED)2022-12-01 17:35:00 Test Item Value Reference Range Interpretation Comments POCT GLU (test code = 0073865213) 248 mg/dL 70-110 H Lab Interpretation (test code = Abnormal 11864-2) [facility] GLUCOSE (AUTOMATED)2022-12-01 14:01:40 Test Item Value Reference Range Interpretation Comments POCT GLU (test code = 5819997720) 229 mg/dL 70-110 H Lab Interpretation (test code = Abnormal 46788-0) [facility] GLUCOSE (AUTOMATED)2022-12-01 14:01:40 Test Item Value Reference Range Interpretation Comments POCT GLU (test code = 2960327859) 229 mg/dL 70-110 H Lab Interpretation (test code = Abnormal 42634-5) [facility] GLUCOSE (AUTOMATED)2022-12-01 00:57:51 Test Item Value Reference Range Interpretation Comments POCT GLU (test code = 7768946429) 212 mg/dL 70-110 H Lab Interpretation (test code = Abnormal 55936-1) [facility] GLUCOSE (AUTOMATED)2022-12-01 00:57:51 Test Item Value Reference Range Interpretation Comments POCT GLU (test code = 2430678534) 212 mg/dL 70-110 H Lab Interpretation (test code = Abnormal 78192-8) [facility] GLUCOSE (AUTOMATED)2022-11-30 23:10:18 Test Item Value Reference Range Interpretation Comments POCT GLU (test code = 5262626298) 147 mg/dL 70-110 H Lab Interpretation (test code = Abnormal 59312-9) [facility] GLUCOSE (AUTOMATED)2022-11-30 23:10:18 Test Item Value Reference Range Interpretation Comments POCT GLU (test code = 0736744171) 147 mg/dL 70-110 H Lab Interpretation (test code = Abnormal 90831-8) [facility] 19:14:58 Test Item Value Reference Range Interpretation Comments POCT GLU (test code = 4727937595) 136 mg/dL 70-110 H Lab Interpretation (test code = Abnormal 96367-3) [facility] GLUCOSE (AUTOMATED)2022-11-30 19:14:58 Test Item Value Reference Range Interpretation Comments POCT GLU (test code = 6263230301) 136 mg/dL 70-110 H Lab Interpretation (test code = Abnormal 05894-8) [facility] GLUCOSE (AUTOMATED)2022-11-30 13:02:24 Test Item Value Reference Range Interpretation Comments POCT GLU (test code = 4145060899) 176 mg/dL 70-110 H Lab Interpretation (test code = Abnormal 23738-0) [facility] GLUCOSE (AUTOMATED)2022-11-30 13:02:24 Test Item Value Reference Range Interpretation Comments POCT GLU (test code = 9778178235) 176 mg/dL 70-110 H Lab Interpretation (test code = Abnormal 78000-8) [facility]:17:56 Test Item Value Reference Range Interpretation Comments POCT GLU (test code = 6937553171) 258 mg/dL 70-110 H Lab Interpretation (test code = Abnormal 96621-6) [facility] 03:17:56 Test Item Value Reference Range Interpretation Comments POCT GLU (test code = 4449702991) 258 mg/dL 70-110 H Lab Interpretation (test code = Abnormal 18442-5) [facility] GLUCOSE (AUTOMATED)2022-11-29 22:38:57 Test Item Value Reference Range Interpretation Comments POCT GLU (test code = 3773857116) 320 mg/dL 70-110 H Lab Interpretation (test code = Abnormal 41024-9) [facility] GLUCOSE (AUTOMATED)2022-11-29 22:38:57 Test Item Value Reference Range Interpretation Comments POCT GLU (test code = 2535484618) 320 mg/dL 70-110 H Lab Interpretation (test code = Abnormal 16596-2) [facility] [id number] 12:28:02 Test Item Value Reference Range Interpretation Comments TSH (test code = 2.80 See_Comment Biotin has been 6945459188) reported to cau se a negative bias, interpret resul ts relative to pat ient's use of biotin. [Automated mess age] The system [employer] generated this result transmitted ref erence range: 0.45 - 4 .70 mIU/L. The refe rence range was not u sed to interpret this result as normal/abnor mal. Lab Interpretation (test Normal code = 71614-8) [facility] [id number] 12:28:02 Test Item Value Reference Range Interpretation Comments TSH (test code = 2.80 See_Comment Biotin has been 2507143047) reported to cau se a negative bias, interpret resul ts relative to pat ient's use of biotin. [Automated mess age] The system [employer] generated this result transmitted ref erence range: 0.45 - 4 .70 mIU/L. The refe rence range was not u sed to interpret this result as normal/abnor mal. Lab Interpretation (test Normal code = 63302-1) [facility]2022-11-27 09:27:59 Test Item Value Reference Range Interpretation Comments HGB A1C (test code = 4.8 % 4.0-5.7 4548-4) ANNABEL (test code = ANNABEL) Reference RangesNormal: <5.7%Prediabetes: 5.7 - 6.4%Diabetes: > 6.5% Lab Interpretation (test Normal code = 29333-3) [facility]2022-11-27 09:27:59 Test Item Value Reference Range Interpretation Comments HGB A1C (test code = 4.8 % 4.0-5.7 4548-4) ANNABEL (test code = ANNABEL) Reference RangesNormal: <5.7%Prediabetes: 5.7 - 6.4%Diabetes: > 6.5% Lab Interpretation (test Normal code = 40157-5) [facility] (NA, K, CL, CO2, Glucose, BUN, Creatinine, CA) - Code [id number] 02:00:17 Test Item Value Reference Range Interpretation Comments NA (test code = 140 mmol/L 135-145 1139037355) K (test code = 4.5 mmol/L 3.5-5.0 1066042978) CL (test code = 105 mmol/L 98-108 2540769637) CO2 TOTAL (test code = 27 mmol/L 23-31 0525050227) AGAP (test code = 8 2-16 7219515636) BUN (test code = 50 mg/dL 7-23 H 1431871325) GLUCOSE (test code = 145 mg/dL 70-110 H 7677133528) CREATININE (test code = 2.21 mg/dL 0.50-1.04 H 8287107931) CALCIUM (test code = 9.1 mg/dL 8.6-10.6 2949707290) eGFR (test code = 21.3 mL/min/1.73m2 4308500978) ANNABEL (test code = ANNABEL) Association of Glomerular Filtration Rate (GFR) and Staging of Kidney Disease* + --+ --+ ------+| GFR (mL/min/1.73 m2) ?| With Kidney Damage ?| ?Without Kidney Damage+ --------+ --------+ +| ?>90 ?| ?Stage one ?| ? Normal ?+ ---+ ---+ -------+| ?60-89 ?| ?Stage two ?| ? Decreased GFR ? + --+ --+ ------+| ?30-59 ?| ?Stage three ?| ? Stage three ? + --+ --+ ------+| ?15-29 ?| ?Stage four ? | ? Stage four ?+ ---+ ---+ -------+| ?<15 (or dialysis) ? ?| ?Stage five ? | ? Stage five ?+ ---+ ---+ -------+ *Each stage assumes the associated GFR level has been in effect for at least three months. ?Stages 1 to 5, with or without kidney disease, indicate chronic kidney disease. Notes: Determination of stages one and two (with eGFR >59mL/min/1.73 m2) requires estimation of kidney damage for at least three months as defined by structural or functional abnormalities of the kidney, manifested by either:Pathological abnormalities or Markers of kidney damage (including abnormalities in the composition of the blood or urine or abnormalities in imaging tests). Lab Interpretation Abnormal (test code = 67387-2) [facility] Metabolic Panel (NA, K, CL, CO2, Glucose, BUN, Creatinine, CA) - Code [id number] 02:00:17 Test Item Value Reference Range Interpretation Comments NA (test code = 140 mmol/L 135-145 6673147508) K (test code = 4.5 mmol/L 3.5-5.0 2120901511) CL (test code = 105 mmol/L 98-108 3321226734) CO2 TOTAL (test code = 27 mmol/L 23-31 1298076070) AGAP (test code = 8 2-16 7596471344) BUN (test code = 50 mg/dL 7-23 H 2405120122) GLUCOSE (test code = 145 mg/dL 70-110 H 8432374337) CREATININE (test code = 2.21 mg/dL 0.50-1.04 H 9481172226) CALCIUM (test code = 9.1 mg/dL 8.6-10.6 0559689017) eGFR (test code = 21.3 mL/min/1.73m2 3442196107) ANNABEL (test code = ANNABEL) Association of Glomerular Filtration Rate (GFR) and Staging of Kidney Disease* + --+ --+ ------+| GFR (mL/min/1.73 m2) ?| With Kidney Damage ?| ?Without Kidney Damage+ --------+ --------+ +| ?>90 ?| ?Stage one ?| ? Normal ?+ ---+ ---+ -------+| ?60-89 ?| ?Stage two ?| ? Decreased GFR ? + --+ --+ ------+| ?30-59 ?| ?Stage three ?| ? Stage three ? + --+ --+ ------+| ?15-29 ?| ?Stage four ? | ? Stage four ?+ ---+ ---+ -------+| ?<15 (or dialysis) ? ?| ?Stage five ? | ? Stage five ?+ ---+ ---+ -------+ *Each stage assumes the associated GFR level has been in effect for at least three months. ?Stages 1 to 5, with or without kidney disease, indicate chronic kidney disease. Notes: Determination of stages one and two (with eGFR >59mL/min/1.73 m2) requires estimation of kidney damage for at least three months as defined by structural or functional abnormalities of the kidney, manifested by either:Pathological abnormalities or Markers of kidney damage (including abnormalities in the composition of the blood or urine or abnormalities in imaging tests). Lab Interpretation Abnormal (test code = 33357-3) [facility] [id number] 01:34:38 Test Item Value Reference Range Interpretation Comments ESR (test code = 114 See_Comment H [Automated message] 97898-6) The system [employer] generated this result transmitted ref erence range: 2 - 30 m m/HR. The reference r kristal was not used to interpret this result as normal/abnor mal. Lab Interpretation (test Abnormal code = 85864-4) [facility] [id number] 01:34:38 Test Item Value Reference Range Interpretation Comments ESR (test code = 114 See_Comment H [Automated message] 40421-2) The system [employer] generated this result transmitted ref erence range: 2 - 30 m m/HR. The reference r kristal was not used to interpret this result as normal/abnor mal. Lab Interpretation (test Abnormal code = 80789-4) [facility] - Code [id number] 01:27:16 Test Item Value Reference Range Interpretation Comments TROPONIN I (test code = 0.011 ng/mL <=0.034 8951205688) ANNABEL (test code = ANNABEL) Reference (Normal) Range (defined by the 99th percentile reference limit): <= 0.034 ng/mL Note: Cardiac troponin begins to rise 3-4 hours after the onset of ischemia. Repeat in 4-6 hours if the sample was drawn within 3-4 hours of the onset of the symptom and found normal. Diagnosis of myocardial injury is made with acute changes in cTn concentrations with at least one serial sample above the 99th percentile upper reference limit (URL), taken together with the patient's clinical presentation. Biotin has been reported to cause a negative bias, interpret results relative to patient's use of biotin. Lab Interpretation Normal (test code = 05038-0) [facility] - Code [id number] 01:27:16 Test Item Value Reference Range Interpretation Comments TROPONIN I (test code = 0.011 ng/mL <=0.034 2032622298) ANNABEL (test code = ANNABEL) Reference (Normal) Range (defined by the 99th percentile reference limit): <= 0.034 ng/mL Note: Cardiac troponin begins to rise 3-4 hours after the onset of ischemia. Repeat in 4-6 hours if the sample was drawn within 3-4 hours of the onset of the symptom and found normal. Diagnosis of myocardial injury is made with acute changes in cTn concentrations with at least one serial sample above the 99th percentile upper reference limit (URL), taken together with the patient's clinical presentation. Biotin has been reported to cause a negative bias, interpret results relative to patient's use of biotin. Lab Interpretation Normal (test code = 66141-1) [facility] / [facility]R - Code [id number] 01:16:54 Test Item Value Reference Range Interpretation Comments PROTIME PATIENT (test 12.0 See_Comment [Auto mated message] code = 5964-2) The system [employer] generated this result transmitted ref erence range: 10.1 - 1 2.6 Seconds. The re ference range was not u sed to interpret this result as normal/abnor mal. INR (test code = 6301-6) 1.1 Nor mal INR <1.1; Warfarin Therap eutic range 2.0 to 3. 0 or 2.5 to 3.5, dep ending upon the indica tions. Lab Interpretation (test Normal code = 59656-5) [facility] Dist[facility] - Code [id number] 01:16:54 Test Item Value Reference Range Interpretation Comments APTT Patient (test code 52 See_Comment H [Au tomated message] = 3173-2) The system [employer] generated this result transmitted ref erence range: 26 - 36 Seconds. The reference range was not used to int erpret this result as normal/abnormal . Lab Interpretation (test Abnormal code = 60584-6) [facility] / [facility] - Code [id number] 01:16:54 Test Item Value Reference Range Interpretation Comments PROTIME PATIENT (test 12.0 See_Comment [Auto mated message] code = 5964-2) The system [employer] generated this result transmitted ref erence range: 10.1 - 1 2.6 Seconds. The re ference range was not u sed to interpret this result as normal/abnor mal. INR (test code = 6301-6) 1.1 Nor mal INR <1.1; Warfarin Therap eutic range 2.0 to 3. 0 or 2.5 to 3.5, dep ending upon the indica tions. Lab Interpretation (test Normal code = 11033-4) [facility]taP[facility] - Code [id number] 01:16:54 Test Item Value Reference Range Interpretation Comments APTT Patient (test code 52 See_Comment H [Au tomated message] = 3173-2) The system [employer] generated this result transmitted ref erence range: 26 - 36 Seconds. The reference range was not used to int erpret this result as normal/abnormal . Lab Interpretation (test Abnormal code = 57544-0) [facility] without Diff - Code [id number] 01:10:57 Test Item Value Reference Range Interpretation Comments WBC (test code = 6690-2) 10.59 See_Comment [A utomated message] The system [employer] generated this result transmit beatriz reference range : 4.30 - 11.10 10*3/?L. The reference range was not used to interpret this result as normal/abnormal . RBC (test code = 789-8) 3.21 See_Comment L [Au tomated message] The system [employer] generated this result transmit beatriz reference range : 3.93 - 5.25 10* 6/?L. The reference r kristal was not used to interpret this result as normal/abnormal . HGB (test code = 718-7) 9.8 g/dL 11.6-15.0 L HCT (test code = 4544-3) 32.5 % 35.7-45.2 L MCH (test code = 785-6) 30.5 pg 25.9-32.8 MCV (test code = 787-2) 101.2 fL 80.6-95.5 H MCHC (test code = 786-4) 30.2 g/dL 31.6-35.1 L PLT (test code = 777-3) 275 See_Comment [Au tomated message] The system [employer] generated this result transmit beatriz reference range : 166 - 358 10*3/?L. The reference range was not used to interpret this result as normal/abnormal . MPV (test code = 11.2 fL 9.5-12.9 25878-2) RDW-CV (test code = 19.9 % 12.0-15.5 H 788-0) RDW-SD (test code = 75.4 fL 39.0-49.9 H 93059-4) NRBC x10^3 (test code = See_Comment [Au tomated message] 6708884607) The system [employer] generated this result transmit beatriz reference range : 10*3/?L. The reference range was not used to interpret this result as normal/abnormal . NRBC/100 WBC (test code 0.0 See_Comment [Au tomated message] = 7439127153) The system [facility] generated this result transmit beatriz reference range : 0.0 - 10.0 /100 WBC s. The reference r kristal was not used to interpret this result as normal/abnormal . IPF % (test code = 6771940026) Lab Interpretation (test Abnormal code = 14457-8) [facility] without Diff - Code [id number] 01:10:57 Test Item Value Reference Range Interpretation Comments WBC (test code = 6690-2) 10.59 See_Comment [A utomated message] The system [employer] generated this result transmit beatriz reference range : 4.30 - 11.10 10*3/?L. The reference range was not used to interpret this result as normal/abnormal . RBC (test code = 789-8) 3.21 See_Comment L [Au tomated message] The system [facility] generated this result transmit beatriz reference range : 3.93 - 5.25 10* 6/?L. The reference r kristal was not used to interpret this result as normal/abnormal . HGB (test code = 718-7) 9.8 g/dL 11.6-15.0 L HCT (test code = 4544-3) 32.5 % 35.7-45.2 L MCH (test code = 785-6) 30.5 pg 25.9-32.8 MCV (test code = 787-2) 101.2 fL 80.6-95.5 H MCHC (test code = 786-4) 30.2 g/dL 31.6-35.1 L PLT (test code = 777-3) 275 See_Comment [Au tomated message] The system [employer] generated this result transmit beatriz reference range : 166 - 358 10*3/?L. The reference range was not used to interpret this result as normal/abnormal . MPV (test code = 11.2 fL 9.5-12.9 31659-5) RDW-CV (test code = 19.9 % 12.0-15.5 H 788-0) RDW-SD (test code = 75.4 fL 39.0-49.9 H 23846-4) NRBC x10^3 (test code = See_Comment [Au tomated message] 4285005109) The system [employer] generated this result transmit beatriz reference range : 10*3/?L. The reference range was not used to interpret this result as normal/abnormal . NRBC/100 WBC (test code 0.0 See_Comment [Au tomated message] = 0624153594) The [facility] generated this result transmit beatriz reference range : 0.0 - 10.0 /100 WBC s. The reference r kristal was not used to interpret this result as normal/abnormal . IPF % (test code = 8107818554) Lab Interpretation (test Abnormal code = 67644-0) [facility] / [id number] 16:19:08 Test Item Value Reference Range Interpretation Comments PROTIME PATIENT (test 13.5 See_Comment [Auto mated message] code = 5964-2) The system [facility] generated this result transmitted ref erence range: 12.0 - 1 4.7 Seconds. The re ference range was not u sed to interpret this result as normal/abnor mal. INR (test code = 6301-6) 1.1 Nor mal INR <1.1; Warfarin Therap eutic range 2.0 to 3. 0 or 2.5 to 3.5, dep ending upon the indica tions. Lab Interpretation (test Normal code = 37846-8) [facility] METABOLIC PANEL (61246)2022-11-20 15:59:04 Test Item Value Reference Range Interpretation Comments NA (test code = 141 mmol/L 135-145 1863896613) K (test code = 5.3 mmol/L 3.5-5.0 H 4731389869) CL (test code = 106 mmol/L 98-108 5572751584) CO2 TOTAL (test code = 29 mmol/L 23-31 5796578634) AGAP (test code = 6 2-16 5157792455) BUN (test code = 48 mg/dL 7-23 H 2474036843) GLUCOSE (test code = 108 mg/dL 70-110 2182278001) CREATININE (test code = 1.97 mg/dL 0.50-1.04 H 4532234182) TOTAL BILI (test code = 1.0 mg/dL 0.1-1.0 2313190679) CALCIUM (test code = 9.1 mg/dL 8.6-10.6 0206405698) T PROTEIN (test code = 7.1 g/dL 6.3-8.2 7345842220) ALBUMIN (test code = 3.7 g/dL 3.5-5.0 2421882255) ALK PHOS (test code = 84 U/L 34-122 9807741501) ALTv (test code = 30 U/L 5-35 1742-6) AST(SGOT) (test code = 55 U/L 13-40 H 4335068645) eGFR (test code = 24.3 mL/min/1.73m2 6243884567) ANNABEL (test code = ANNABEL) Association of Glomerular Filtration Rate (GFR) and Staging of Kidney Disease* + --+ --+ ------+| GFR (mL/min/1.73 m2) ?| With Kidney Damage ?| ?Without Kidney Damage+ --------+ --------+ +| ?>90 ?| ?Stage one ?| ? Normal ?+ ---+ ---+ -------+| ?60-89 ?| ?Stage two ?| ? Decreased GFR ? + --+ --+ ------+| ?30-59 ?| ?Stage three ?| ? Stage three ? + --+ --+ ------+| ?15-29 ?| ?Stage four ? | ? Stage four ?+ ---+ ---+ -------+| ?<15 (or dialysis) ? ?| ?Stage five ? | ? Stage five ?+ ---+ ---+ -------+ *Each stage assumes the associated GFR level has been in effect for at least three months. ?Stages 1 to 5, with or without kidney disease, indicate chronic kidney disease. Notes: Determination of stages one and two (with eGFR >59mL/min/1.73 m2) requires estimation of kidney damage for at least three months as defined by structural or functional abnormalities of the kidney, manifested by either:Pathological abnormalities or Markers of kidney damage (including abnormalities in the composition of the blood or urine or abnormalities in imaging tests). Lab Interpretation Abnormal (test code = 45492-4) [facility] WITH [id number] 15:51:48 Test Item Value Reference Range Interpretation Comments WBC (test code = 11.00 See_Comment [Automated 7290-2) message] The sy stem which generated this result transmitted reference range : 4.30 - 11.10 10*3/?L. The reference range was not used to interpret this result as normal/abnormal . RBC (test code = 3.23 See_Comment L [Automated 059-8) message] The sy stem which generated this result transmitted reference range : 3.93 - 5.25 10*6/?L. The reference range was not used to interpret this result as normal/abnormal . HGB (test code = 9.9 g/dL 11.6-15.0 L 718-7) HCT (test code = 32.5 % 35.7-45.2 L 4544-3) MCV (test code = 100.6 fL 80.6-95.5 H 787-2) MCH (test code = 30.7 pg 25.9-32.8 785-6) MCHC (test code = 30.5 g/dL 31.6-35.1 L 786-4) RDW-SD (test code = 82.2 fL 39.0-49.9 H 50394-0) RDW-CV (test code = 22.2 % 12.0-15.5 H 788-0) PLT (test code = 241 See_Comment [Automated 437-3) message] The sy stem which generated this result transmitted reference range : 166 - 358 10*3/ ?L. The reference r kristal was not used to interpret this result as normal/abnormal . MPV (test code = 11.5 fL 9.5-12.9 03629-7) NRBC/100 WBC (test 0.0 See_Comment [Automat ed code = 1117159058) message] The system which generated this result transmitted reference range : 0.0 - 10.0 /100 WBCs. The refer ence range was not u sed to interpret th is result as normal/abnormal . NRBC x10^3 (test code See_Comment [Auto mated = 7708781168) message] The s ystem which generated this result transmitted reference range : 10*3/?L. The reference range was not used to interpret this result as normal/abnormal . GRAN MAT (NEUT) % 61.9 % (test code = 770-8) IMM GRAN % (test code 0.40 % = 9803626038) LYMPH % (test code = 13.4 % 736-9) MONO % (test code = 8.2 % 5905-5) EOS % (test code = 15.5 % 713-8) BASO % (test code = 0.6 % 706-2) GRAN MAT x10^3(ANC) 6.81 10*3/uL 1.88-7.09 (test code = 8095574866) IMM GRAN x10^3 (test 0.04 10*3/uL 0.00-0.06 code = 0542013371) LYMPH x10^3 (test code 1.47 10*3/uL 1.32-3.29 = 731-0) MONO x10^3 (test code 0.90 10*3/uL 0.33-0.92 = 742-7) EOS x10^3 (test code = 1.71 10*3/uL 0.03-0.39 H 711-2) BASO x10^3 (test code 0.07 10*3/uL 0.01-0.07 = 704-7) Lab Interpretation Abnormal (test code = 68936-8) [facility] WITHOUT [id number] 01:59:47 Test Item Value Reference Range Interpretation Comments WBC (test code = 6690-2) 9.62 See_Comment [A utomated message] The system [employer] generated this result transmit beatriz reference range : 4.30 - 11.10 10*3/?L. The reference range was not used to interpret this result as normal/abnormal . RBC (test code = 789-8) 2.74 See_Comment L [Au tomated message] The system [employer] generated this result transmit beatriz reference range : 3.93 - 5.25 10* 6/?L. The reference r kristal was not used to interpret this result as normal/abnormal . HGB (test code = 718-7) 8.3 g/dL 11.6-15.0 L HCT (test code = 4544-3) 25.3 % 35.7-45.2 L MCH (test code = 785-6) 30.3 pg 25.9-32.8 MCV (test code = 787-2) 92.3 fL 80.6-95.5 MCHC (test code = 786-4) 32.8 g/dL 31.6-35.1 PLT (test code = 777-3) 170 See_Comment [Au tomated message] The system [employer] generated this result transmit beatriz reference range : 166 - 358 10*3/?L. The reference range was not used to interpret this result as normal/abnormal . MPV (test code = 11.1 fL 9.5-12.9 22870-9) RDW-CV (test code = 23.8 % 12.0-15.5 H 788-0) RDW-SD (test code = 70.9 fL 39.0-49.9 H 42394-2) NRBC x10^3 (test code = See_Comment [Au tomated message] 0462516336) The system [employer] generated this result transmit beatriz reference range : 10*3/?L. The reference range was not used to interpret this result as normal/abnormal . NRBC/100 WBC (test code 0.0 See_Comment [Au tomated message] = 2559088341) The system [facility] generated this result transmit beatriz reference range : 0.0 - 10.0 /100 WBC s. The reference r kristal was not used to interpret this result as normal/abnormal . IPF % (test code = 1914926816) Lab Interpretation (test Abnormal code = 89258-8) [facility] RBC (in units), 1 Units 2022-11-15 19:29:23 Test Item Value Reference Range Interpretation Comments Cross Match Result Compatible (test code = 4409) ISBT Blood Type Code 5100 (test code = 213543) Unit Blood Type (test O Pos code = 4410) Unit Number (test [id number] code = 4411) Blood Expiration Date & Time (test code = 809696) Status Information Issued (test code = 4412) Product Red Blood Cells Identification (test code = 4413) Product Code (test Q5302G64 Performed at [facility] code = 4414) Laboratory Services - [facility] Blood [address] [place] [address]Mjju Free: [phone] A No. [id number] [facility] Packed RBC (in units), 2 Units 2022-11-15 15:53:52 Test Item Value Reference Range Interpretation Comments Cross Match Result Compatible (test code = 4409) ISBT Blood Type Code 5100 (test code = 739285) Unit Blood Type (test O Pos code = 4410) Unit Number (test [id number] code = 4411) Blood Expiration Date 445221028464 & Time (test code = 443767) Status Information Issued (test code = 4412) Product Red Blood Cells Identification (test code = 4413) Product Code (test C5412C25 Performed at [facility] code = 4414) Laboratory Services - [facility] Blood [address] [place] [phone] Free: [phone] A No. [id number] [facility] Packed RBC (in units), 1 Units 2022-11-14 22:24:55 Test Item Value Reference Range Interpretation Comments Cross Match Result Compatible (test code = 4409) ISBT Blood Type Code 5100 (test code = 784653) Unit Blood Type (test O Pos code = 4410) Unit Number (test [id number] code = 4411) Blood Expiration Date 394330247143 & Time (test code = 908270) Status Information Issued (test code = 4412) Product Red Blood Cells Identification (test code = 4413) Product Code (test [id number] Performed at [facility] code = 4414) Laboratory Services - [facility] Blood [address] [place], [place] [address]vestonJayant [address]Mziq Free: [phone] A No. [id number] [facility] [id number] 21:15:09 Test Item Value Reference Range Interpretation Comments LACTIC ACID (test code = 1.30 mmol/L 0.50-2.20 7195184559) Lab Interpretation (test code = Normal 70951-3) [facility] WITH [id number] 19:34:44 Test Item Value Reference Range Interpretation Comments WBC (test code = 10.25 See_Comment [Automated 6690-2) message] The sy stem which generated this result transmitted reference range : 4.30 - 11.10 10*3/?L. The reference range was not used to interpret this result as normal/abnormal . RBC (test code = 3.35 See_Comment L [Automated 789-8) message] The sy stem which generated this result transmitted reference range : 3.93 - 5.25 10*6/?L. The reference range was not used to interpret this result as normal/abnormal . HGB (test code = 10.4 g/dL 11.6-15.0 L 718-7) HCT (test code = 33.7 % 35.7-45.2 L 4544-3) MCV (test code = 100.6 fL 80.6-95.5 H 787-2) MCH (test code = 31.0 pg 25.9-32.8 785-6) MCHC (test code = 30.9 g/dL 31.6-35.1 L 786-4) RDW-SD (test code = 65.1 fL 39.0-49.9 H 65644-6) RDW-CV (test code = 17.8 % 12.0-15.5 H 788-0) PLT (test code = 267 See_Comment [Automated 777-3) message] The sy stem which generated this result transmitted reference range : 166 - 358 10*3/ ?L. The reference r kristal was not used to interpret this result as normal/abnormal . MPV (test code = 11.0 fL 9.5-12.9 92634-9) NRBC/100 WBC (test 0.0 See_Comment [Automat ed code = 0067458407) message] The system which generated this result transmitted reference range : 0.0 - 10.0 /100 WBCs. The refer ence range was not u sed to interpret th is result as normal/abnormal . NRBC x10^3 (test code See_Comment [Auto mated = 2402819403) message] The s ystem which generated this result transmitted reference range : 10*3/?L. The reference range was not used to interpret this result as normal/abnormal . GRAN MAT (NEUT) % 50.3 % (test code = 770-8) IMM GRAN % (test code 0.30 % = 9186798488) LYMPH % (test code = 16.4 % 736-9) MONO % (test code = 10.9 % 5905-5) EOS % (test code = 21.7 % 713-8) BASO % (test code = 0.4 % 706-2) GRAN MAT x10^3(ANC) 5.16 10*3/uL 1.88-7.09 (test code = 6425129593) IMM GRAN x10^3 (test 0.03 10*3/uL 0.00-0.06 code = 3164263626) LYMPH x10^3 (test code 1.68 10*3/uL 1.32-3.29 = 731-0) MONO x10^3 (test code 1.12 10*3/uL 0.33-0.92 H = 742-7) EOS x10^3 (test code = 2.22 10*3/uL 0.03-0.39 H 711-2) BASO x10^3 (test code 0.04 10*3/uL 0.01-0.07 = 704-7) SCHISTOCYTES (test 1+ A code = 800-3) Lab Interpretation Abnormal (test code = 87382-3) [facility] [id number] 19:27:27 Test Item Value Reference Range Interpretation Comments TROPONIN I (test code = 0.006 ng/mL <=0.034 9798534353) ANNABEL (test code = ANNABEL) Reference (Normal) Range (defined by the 99th percentile reference limit): <= 0.034 ng/mL Note: Cardiac troponin begins to rise 3-4 hours after the onset of ischemia. Repeat in 4-6 hours if the sample was drawn within 3-4 hours of the onset of the symptom and found normal. Diagnosis of myocardial injury is made with acute changes in cTn concentrations with at least one serial sample above the 99th percentile upper reference limit (URL), taken together with the patient's clinical presentation. Biotin has been reported to cause a negative bias, interpret results relative to patient's use of biotin. Lab Interpretation Normal (test code = 93027-3) [facility]. METABOLIC PANEL ([id number])2022-10-07 19:16:43 Test Item Value Reference Range Interpretation Comments NA (test code = 142 mmol/L 135-145 9928815702) K (test code = 4.5 mmol/L 3.5-5.0 5234074121) CL (test code = 108 mmol/L 98-108 2692981310) CO2 TOTAL (test code = 30 mmol/L 23-31 0590381678) AGAP (test code = 4 2-16 1110436470) BUN (test code = 36 mg/dL 7-23 H 1603383853) GLUCOSE (test code = 102 mg/dL 70-110 2918510107) CREATININE (test code = 1.84 mg/dL 0.50-1.04 H 9380239788) TOTAL BILI (test code = 0.6 mg/dL 0.1-1.8 7675713668) CALCIUM (test code = 9.7 mg/dL 8.6-10.6 6195669754) T PROTEIN (test code = 7.0 g/dL 6.3-8.2 4204934564) ALBUMIN (test code = 3.8 g/dL 3.5-5.0 6286684149) ALK PHOS (test code = 89 U/L 34-122 4130982315) ALTv (test code = 20 U/L 5-35 1742-6) AST(SGOT) (test code = 36 U/L 13-40 7985018354) eGFR (test code = 26.3 mL/min/1.73m2 4024451103) ANNABEL (test code = ANNABEL) Association of Glomerular Filtration Rate (GFR) and Staging of Kidney Disease* + --+ --+ ------+| GFR (mL/min/1.73 m2) ?| With Kidney Damage ?| ?Without Kidney Damage+ --------+ --------+ +| ?>90 ?| ?Stage one ?| ? Normal ?+ ---+ ---+ -------+| ?60-89 ?| ?Stage two ?| ? Decreased GFR ? + --+ --+ ------+| ?30-59 ?| ?Stage three ?| ? Stage three ? + --+ --+ ------+| ?15-29 ?| ?Stage four ? | ? Stage four ?+ ---+ ---+ -------+| ?<15 (or dialysis) ? ?| ?Stage five ? | ? Stage five ?+ ---+ ---+ -------+ *Each stage assumes the associated GFR level has been in effect for at least three months. ?Stages 1 to 5, with or without kidney disease, indicate chronic kidney disease. Notes: Determination of stages one and two (with eGFR >59mL/min/1.73 m2) requires estimation of kidney damage for at least three months as defined by structural or functional abnormalities of the kidney, manifested by either:Pathological abnormalities or Markers of kidney damage (including abnormalities in the composition of the blood or urine or abnormalities in imaging tests). Lab Interpretation Abnormal (test code = 19687-8) [facility] / [id number] 19:04:23 Test Item Value Reference Range Interpretation Comments PROTIME PATIENT (test 27.4 See_Comment H [Auto mated message] code = 5964-2) The system [employer] generated this result transmitted ref erence range: 12.0 - 1 4.7 Seconds. The reference range was not used to int erpret this result as normal/abnormal . INR (test code = 6301-6) 2.6 Nor mal INR <1.1; Warfarin Therap eutic range 2.0 to 3. 0 or 2.5 to 3.5, dep ending upon the indica tions. Lab Interpretation (test Abnormal code = 47236-8) [facility] [id number] 15:12:58 Test Item Value Reference Range Interpretation Comments TROPONIN I (test code = 0.005 ng/mL <=0.034 2397451204) ANNABEL (test code = ANNABEL) Reference (Normal) Range (defined by the 99th percentile reference limit): <= 0.034 ng/mL Note: Cardiac troponin begins to rise 3-4 hours after the onset of ischemia. Repeat in 4-6 hours if the sample was drawn within 3-4 hours of the onset of the symptom and found normal. Diagnosis of myocardial injury is made with acute changes in cTn concentrations with at least one serial sample above the 99th percentile upper reference limit (URL), taken together with the patient's clinical presentation. Biotin has been reported to cause a negative bias, interpret results relative to patient's use of biotin. Lab Interpretation Normal (test code = 85293-3) [facility]2023-04-14 15:03:02 Test Item Value Reference Range Interpretation Comments MAGNESIUM (test code = 6837387174) 1.9 mg/dL 1.7-2.4 Lab Interpretation (test code = Normal 65045-7) [facility]OLIC PAN[facility] ([id number])2022-09-21 15:02:41 Test Item Value Reference Range Interpretation Comments NA (test code = 137 mmol/L 135-145 7466321972) K (test code = 4.7 mmol/L 3.5-5.0 2896384016) CL (test code = 107 mmol/L 98-108 2377739921) CO2 TOTAL (test code = 22 mmol/L 23-31 L 6785827557) AGAP (test code = 8 2-16 1834100062) BUN (test code = 40 mg/dL 7-23 H 5881631976) GLUCOSE (test code = 104 mg/dL 70-110 6599666841) CREATININE (test code = 1.72 mg/dL 0.50-1.04 H 5784990902) TOTAL BILI (test code = 0.5 mg/dL 0.1-1.7 4983011644) CALCIUM (test code = 9.6 mg/dL 8.6-10.6 4443758014) T PROTEIN (test code = 6.6 g/dL 6.3-8.2 3128351648) ALBUMIN (test code = 3.8 g/dL 3.5-5.0 3088199547) ALK PHOS (test code = 71 U/L 34-122 0124384780) ALTv (test code = 16 U/L 5-35 1742-6) AST(SGOT) (test code = 25 U/L 13-40 1622153668) eGFR (test code = 28.4 mL/min/1.73m2 5701792108) ANNABEL (test code = ANNABEL) Association of Glomerular Filtration Rate (GFR) and Staging of Kidney Disease* + --+ --+ ------+| GFR (mL/min/1.73 m2) ?| With Kidney Damage ?| ?Without Kidney Damage+ --------+ --------+ +| ?>90 ?| ?Stage one ?| ? Normal ?+ ---+ ---+ -------+| ?60-89 ?| ?Stage two ?| ? Decreased GFR ? + --+ --+ ------+| ?30-59 ?| ?Stage three ?| ? Stage three ? + --+ --+ ------+| ?15-29 ?| ?Stage four ? | ? Stage four ?+ ---+ ---+ -------+| ?<15 (or dialysis) ? ?| ?Stage five ? | ? Stage five ?+ ---+ ---+ -------+ *Each stage assumes the associated GFR level has been in effect for at least three months. ?Stages 1 to 5, with or without kidney disease, indicate chronic kidney disease. Notes: Determination of stages one and two (with eGFR >59mL/min/1.73 m2) requires estimation of kidney damage for at least three months as defined by structural or functional abnormalities of the kidney, manifested by either:Pathological abnormalities or Markers of kidney damage (including abnormalities in the composition of the blood or urine or abnormalities in imaging tests). Lab Interpretation Abnormal (test code = 13280-7) [facility] WITH [id number] 14:45:58 Test Item Value Reference Range Interpretation Comments WBC (test code = 6.61 See_Comment [Automated 8090-2) message] The sy stem which generated this result transmitted reference range : 4.30 - 11.10 10*3/?L. The reference range was not used to interpret this result as normal/abnormal . RBC (test code = 3.35 See_Comment L [Automated 789-8) message] The sy stem which generated this result transmitted reference range : 3.93 - 5.25 10*6/?L. The reference range was not used to interpret this result as normal/abnormal . HGB (test code = 10.1 g/dL 11.6-15.0 L 718-7) HCT (test code = 32.6 % 35.7-45.2 L 4544-3) MCV (test code = 97.3 fL 80.6-95.5 H 787-2) MCH (test code = 30.1 pg 25.9-32.8 785-6) MCHC (test code = 31.0 g/dL 31.6-35.1 L 786-4) RDW-SD (test code = 62.5 fL 39.0-49.9 H 42083-8) RDW-CV (test code = 17.6 % 12.0-15.5 H 788-0) PLT (test code = 287 See_Comment [Automated 777-3) message] The sy stem which generated this result transmitted reference range : 166 - 358 10*3/ ?L. The reference r kristal was not used to interpret this result as normal/abnormal . MPV (test code = 11.0 fL 9.5-12.9 86703-9) NRBC/100 WBC (test 0.0 See_Comment [Automat ed code = 1060918067) message] The system which generated this result transmitted reference range : 0.0 - 10.0 /100 WBCs. The refer ence range was not u sed to interpret th is result as normal/abnormal . NRBC x10^3 (test code See_Comment [Auto mated = 1833101427) message] The s ystem which generated this result transmitted reference range : 10*3/?L. The reference range was not used to interpret this result as normal/abnormal . GRAN MAT (NEUT) % 45.3 % (test code = 770-8) IMM GRAN % (test code 0.30 % = 4126373299) LYMPH % (test code = 21.9 % 736-9) MONO % (test code = 9.8 % 5905-5) EOS % (test code = 22.1 % 713-8) BASO % (test code = 0.6 % 706-2) GRAN MAT x10^3(ANC) 2.99 10*3/uL 1.88-7.09 (test code = 1659870628) IMM GRAN x10^3 (test 0.00-0.06 code = 1948276671) LYMPH x10^3 (test code 1.45 10*3/uL 1.32-3.29 = 731-0) MONO x10^3 (test code 0.65 10*3/uL 0.33-0.92 = 742-7) EOS x10^3 (test code = 1.46 10*3/uL 0.03-0.39 H 711-2) BASO x10^3 (test code 0.04 10*3/uL 0.01-0.07 = 704-7) Lab Interpretation Abnormal (test code = 77696-5) [facility] METABOLIC PANEL (NA, K, CL, CO2, GLUCOSE, BUN, CREATININE, [place])2022-08-27 16:13:55 Test Item Value Reference Range Interpretation Comments NA (test code = 136 mmol/L 135-145 5276953612) K (test code = 3.6 mmol/L 3.5-5.0 6573370595) CL (test code = 101 mmol/L 98-108 2444908158) CO2 TOTAL (test code = 26 mmol/L 23-31 9349873736) AGAP (test code = 9 2-16 8354380469) BUN (test code = 43 mg/dL 7-23 H 2858867535) GLUCOSE (test code = 162 mg/dL 70-110 H 7313740327) CREATININE (test code = 2.07 mg/dL 0.50-1.04 H 1275827379) CALCIUM (test code = 9.6 mg/dL 8.6-10.6 3262360792) eGFR (test code = 22.9 mL/min/1.73m2 3839693200) ANNABEL (test code = ANNABEL) Association of Glomerular Filtration Rate (GFR) and Staging of Kidney Disease* + --+ --+ ------+| GFR (mL/min/1.73 m2) ?| With Kidney Damage ?| ?Without Kidney Damage+ --------+ --------+ +| ?>90 ?| ?Stage one ?| ? Normal ?+ ---+ ---+ -------+| ?60-89 ?| ?Stage two ?| ? Decreased GFR ? + --+ --+ ------+| ?30-59 ?| ?Stage three ?| ? Stage three ? + --+ --+ ------+| ?15-29 ?| ?Stage four ? | ? Stage four ?+ ---+ ---+ -------+| ?<15 (or dialysis) ? ?| ?Stage five ? | ? Stage five ?+ ---+ ---+ -------+ *Each stage assumes the associated GFR level has been in effect for at least three months. ?Stages 1 to 5, with or without kidney disease, indicate chronic kidney disease. Notes: Determination of stages one and two (with eGFR >59mL/min/1.73 m2) requires estimation of kidney damage for at least three months as defined by structural or functional abnormalities of the kidney, manifested by either:Pathological abnormalities or Markers of kidney damage (including abnormalities in the composition of the blood or urine or abnormalities in imaging tests). Lab Interpretation Abnormal (test code = 82760-2) [facility] 10:39:44 Test Item Value Reference Range Interpretation Comments MAGNESIUM (test code = 5393488517) 2.4 mg/dL 1.7-2.4 Lab Interpretation (test code = Normal 82161-7) [facility] ([id number])2022-08-26 10:39:43 Test Item Value Reference Range Interpretation Comments NA (test code = 141 mmol/L 135-145 4629916033) K (test code = 3.6 mmol/L 3.5-5.0 5953481331) CL (test code = 106 mmol/L 98-108 1545113680) CO2 TOTAL (test code = 24 mmol/L 23-31 6492562991) AGAP (test code = 11 2-16 1603865409) BUN (test code = 43 mg/dL 7-23 H 4079566531) GLUCOSE (test code = 88 mg/dL 70-110 1021874476) CREATININE (test code = 2.07 mg/dL 0.50-1.04 H 4583059830) TOTAL BILI (test code = 0.5 mg/dL 0.1-1.5 2575173267) CALCIUM (test code = 9.4 mg/dL 8.6-10.6 5038520261) T PROTEIN (test code = 6.7 g/dL 6.3-8.2 5307312678) ALBUMIN (test code = 3.3 g/dL 3.5-5.0 L 5801307414) ALK PHOS (test code = 80 U/L 34-122 9020329974) ALTv (test code = 23 U/L 5-35 2-6) AST(SGOT) (test code = 37 U/L 13-40 5602284086) eGFR (test code = 22.9 mL/min/1.73m2 0409729998) ANNABEL (test code = ANNABEL) Association of Glomerular Filtration Rate (GFR) and Staging of Kidney Disease* + --+ --+ ------+| GFR (mL/min/1.73 m2) ?| With Kidney Damage ?| ?Without Kidney Damage+ --------+ --------+ +| ?>90 ?| ?Stage one ?| ? Normal ?+ ---+ ---+ -------+| ?60-89 ?| ?Stage two ?| ? Decreased GFR ? + --+ --+ ------+| ?30-59 ?| ?Stage three ?| ? Stage three ? + --+ --+ ------+| ?15-29 ?| ?Stage four ? | ? Stage four ?+ ---+ ---+ -------+| ?<15 (or dialysis) ? ?| ?Stage five ? | ? Stage five ?+ ---+ ---+ -------+ *Each stage assumes the associated GFR level has been in effect for at least three months. ?Stages 1 to 5, with or without kidney disease, indicate chronic kidney disease. Notes: Determination of stages one and two (with eGFR >59mL/min/1.73 m2) requires estimation of kidney damage for at least three months as defined by structural or functional abnormalities of the kidney, manifested by either:Pathological abnormalities or Markers of kidney damage (including abnormalities in the composition of the blood or urine or abnormalities in imaging tests). Lab Interpretation Abnormal (test code = 98873-0) [facility] METABOLIC PANEL (NA, K, CL, CO2, GLUCOSE, BUN, CREATININE, [place])2022-08-24 10:38:27 Test Item Value Reference Range Interpretation Comments NA (test code = 137 mmol/L 135-145 6067655138) K (test code = 4.0 mmol/L 3.5-5.0 5879301650) CL (test code = 107 mmol/L 98-108 5020675594) CO2 TOTAL (test code = 19 mmol/L 23-31 L 2227347685) AGAP (test code = 11 2-16 0011034410) BUN (test code = 60 mg/dL 7-23 H 5681809072) GLUCOSE (test code = 118 mg/dL 70-110 H 1468720528) CREATININE (test code = 3.96 mg/dL 0.50-1.04 H 2545779183) CALCIUM (test code = 8.3 mg/dL 8.6-10.6 L 2752063452) eGFR (test code = 10.8 mL/min/1.73m2 2386911772) ANNABEL (test code = ANNABEL) Association of Glomerular Filtration Rate (GFR) and Staging of Kidney Disease* + --+ --+ ------+| GFR (mL/min/1.73 m2) ?| With Kidney Damage ?| ?Without Kidney Damage+ --------+ --------+ +| ?>90 ?| ?Stage one ?| ? Normal ?+ ---+ ---+ -------+| ?60-89 ?| ?Stage two ?| ? Decreased GFR ? + --+ --+ ------+| ?30-59 ?| ?Stage three ?| ? Stage three ? + --+ --+ ------+| ?15-29 ?| ?Stage four ? | ? Stage four ?+ ---+ ---+ -------+| ?<15 (or dialysis) ? ?| ?Stage five ? | ? Stage five ?+ ---+ ---+ -------+ *Each stage assumes the associated GFR level has been in effect for at least three months. ?Stages 1 to 5, with or without kidney disease, indicate chronic kidney disease. Notes: Determination of stages one and two (with eGFR >59mL/min/1.73 m2) requires estimation of kidney damage for at least three months as defined by structural or functional abnormalities of the kidney, manifested by either:Pathological abnormalities or Markers of kidney damage (including abnormalities in the composition of the blood or urine or abnormalities in imaging tests). Lab Interpretation Abnormal (test code = 62535-1) [facility]10[facility]52 Test Item Value Reference Range Interpretation Comments MAGNESIUM (test code = 4664200428) 1.6 mg/dL 1.7-2.4 L Lab Interpretation (test code = Abnormal 62492-4) [facility] WITH [id number] 09:45:31 Test Item Value Reference Range Interpretation Comments WBC (test code = 10.53 See_Comment [Automated 3990-2) message] The sy stem which generated this result transmitted reference range : 4.30 - 11.10 10*3/?L. The reference range was not used to interpret this result as normal/abnormal . RBC (test code = 2.54 See_Comment L [Automated 789-8) message] The sy stem which generated this result transmitted reference range : 3.93 - 5.25 10*6/?L. The reference range was not used to interpret this result as normal/abnormal . HGB (test code = 7.6 g/dL 11.6-15.0 L 718-7) HCT (test code = 24.1 % 35.7-45.2 L 4544-3) MCV (test code = 94.9 fL 80.6-95.5 787-2) MCH (test code = 29.9 pg 25.9-32.8 785-6) MCHC (test code = 31.5 g/dL 31.6-35.1 L 786-4) RDW-SD (test code = 48.2 fL 39.0-49.9 08448-7) RDW-CV (test code = 14.6 % 12.0-15.5 788-0) PLT (test code = 224 See_Comment [Automated 777-3) message] The sy stem which generated this result transmitted reference range : 166 - 358 10*3/ ?L. The reference r kristal was not used to interpret this result as normal/abnormal . MPV (test code = 10.9 fL 9.5-12.9 83933-7) NRBC/100 WBC (test 0.0 See_Comment [Automat ed code = 9643187008) message] The system which generated this result transmitted reference range : 0.0 - 10.0 /100 WBCs. The refer ence range was not u sed to interpret th is result as normal/abnormal . NRBC x10^3 (test code See_Comment [Auto mated = 2708170379) message] The s ystem which generated this result transmitted reference range : 10*3/?L. The reference range was not used to interpret this result as normal/abnormal . GRAN MAT (NEUT) % 66.1 % (test code = 770-8) IMM GRAN % (test code 0.60 % = 9887871393) LYMPH % (test code = 14.0 % 736-9) MONO % (test code = 12.5 % 5905-5) EOS % (test code = 6.6 % 713-8) BASO % (test code = 0.2 % 706-2) GRAN MAT x10^3(ANC) 6.96 10*3/uL 1.88-7.09 (test code = 7250165797) IMM GRAN x10^3 (test 0.06 10*3/uL 0.00-0.06 code = 4924697094) LYMPH x10^3 (test code 1.47 10*3/uL 1.32-3.29 = 731-0) MONO x10^3 (test code 1.32 10*3/uL 0.33-0.92 H = 742-7) EOS x10^3 (test code = 0.70 10*3/uL 0.03-0.39 H 711-2) BASO x10^3 (test code 0.01-0.07 = 704-7) Lab Interpretation Abnormal (test code = 93921-9) [facility] [id number] 06:08:19 Test Item Value Reference Range Interpretation Comments IONIZED CA (test code = 4.80 mg/dL 4.50-5.30 6743018380) PH SERUM (test code = 9893746098) 7.17 7.35-7.45 L QUES Lab Interpretation (test code = Abnormal 73215-7) [facility] 05:52:33 Test Item Value Reference Range Interpretation Comments Procalcitonin (test 0.35 ng/mL <=0.07 H code = 4157376286) ANNABEL (test code = ANNABEL) INTERPRETATION OF PROCALCITONIN RESULTS IN ADULTS >= 18 YEARS OF AGE Initiation and discontinuation of antibiotics on patients with suspected or confirmed Lower Respiratory Tract Infection in Adults >= 18 years of age. + +-------- --------+ + -----+|Procalcitonin |Interpretation ?|Antibiotic ? ? |Considerations ? |ng/mL ? | ?|recommendation | ? + +-------- --------+ + -----+| <0.1 ? | Bacterial ? ? ?| Strongly ? ? ?| ? | ?| infection very | discouraged ? | Overruling: ? | ?| unlikely ? ? ? | ? | ? Clinically unstable ? ? ? + +-------- --------+ + ? High risk for adverse ? ? | <0.25 ?| Bacterial ? ? ?| Discouraged ? | ? outcome ? | ?| infection ? ? ?| ? | ? SEE IMPORTANT NOTE ?| ?| unlikely ? ? ? | ? | ? + +-------- --------+ + -----+| >=0.25 ? ? ? | Bacterial ? ? ?| Encouraged ? ?| ? | ?| infection ? ? ?| ? | ? | ?| likely ? | ? | Consider treatment failure ?+ +------- ---------+ -+ if levels does not decrease | >0.5 ? | Bacterial ? ? ?| Strongly ? ? ?| appropriately ? | ?| infection very | encouraged ? ?| ? | ?| likely ? | ? | ? + +-------- --------+ + -----+ Discontinuation of antibiotics in high-acuity patients with suspected or confirmed sepsis in Adults >= 18 years of age. + +-------- --------+ + -----+|Procalcitonin |Interpretation ?|Antibiotic ? ? |Considerations ? |ng/mL ? | ?|recommendation | ? + +-------- --------+ + -----+| <0.25 ?| Bacterial ? ? ?| Strongly ? ? ?| ? | ?| infection very | discouraged ? | Overruling: ? | ?| unlikely ? ? ? | ? | ? Clinically unstable ? ? ? + +-------- --------+ + ? High risk for adverse ? ? | <0.5 or drop | Bacterial ? ? ?| Discouraged ? | ? outcome ? | >80% from ? ?| infection ? ? ?| ? | ? SEE IMPORTANT NOTE ?| highest PCT ?| unlikely ? ? ? | ? | ? | level ?| ?| ? | ? + +-------- --------+ + -----+| >=0.5 ?| Bacterial ? ? ?| Encouraged ? ?| ? | ?| infection ? ? ?| ? | ? | ?| likely ? | ? | Consider treatment failure ?+ +------- ---------+ -+ if levels does not decrease | >1.0 ? | Bacterial ? ? ?| Strongly ? ? ?| appropriately ? | ?| infection very | encouraged ? ?| ? | ?| likely ? | ? | ? + +-------- --------+ + -----+ Percentage of drop of Procalcitonin calculation for Discontinuation of antibiotics in high-acuity patients with suspected or confirmed sepsis in Adults >= 18 years of age. ? Procalcitonin highest{}-Procalcitonin current{}Delta Procalcitonin = x100% ? Procalcitonin current {} IMPORTANT NOTE: Procalcitonin may be elevated without bacterial infection by physiologic stress related to trauma, reid, chronic dialysis, metastatic cancer, surgery in the past seven days, malaria, some fungal infections, and some forms of vasculitis. The interpretation algorithm may not apply to patients with immunosuppression (equivalent of >10 mg of prednisone daily), HIV with CD4 cell count < 350 cells/mm3, active malignancy on systemic chemotherapy, solid organ transplant or hematopoietic stem cell transplantation, or hospital acquired pneumonia. Additionally, some clinical trials of procalcitonin have excluded patients with shock requiring vasopressor use, acute respiratory failure requiring mechanical ventilation, or those with known lung abscess/empyema. For further information please refer to:[email or web address] Lab Interpretation Abnormal (test code = 15873-5) [facility] METABOLIC PANEL ([id number])2022-08-24 02:09:25 Test Item Value Reference Range Interpretation Comments NA (test code = 134 mmol/L 135-145 L 8139243605) K (test code = 4.7 mmol/L 3.5-5.0 7110140268) CL (test code = 108 mmol/L 98-108 5709504830) CO2 TOTAL (test code = 16 mmol/L 23-31 L 4768032458) AGAP (test code = 10 2-16 8917796734) BUN (test code = 61 mg/dL 7-23 H 6288508414) GLUCOSE (test code = 163 mg/dL 70-110 H 0537876600) CREATININE (test code = 4.20 mg/dL 0.50-1.04 H 2914030203) TOTAL BILI (test code = 0.4 mg/dL 0.1-1.8 4420814959) CALCIUM (test code = 8.2 mg/dL 8.6-10.6 L 3541359489) T PROTEIN (test code = 6.3 g/dL 6.3-8.2 1357412248) ALBUMIN (test code = 3.3 g/dL 3.5-5.0 L 8880640302) ALK PHOS (test code = 59 U/L 34-122 2949184852) ALTv (test code = 18 U/L 5-35 1742-6) AST(SGOT) (test code = 29 U/L 13-40 8609809953) eGFR (test code = 10.1 mL/min/1.73m2 2568789592) ANNABEL (test code = ANNABEL) Association of Glomerular Filtration Rate (GFR) and Staging of Kidney Disease* + --+ --+ ------+| GFR (mL/min/1.73 m2) ?| With Kidney Damage ?| ?Without Kidney Damage+ --------+ --------+ +| ?>90 ?| ?Stage one ?| ? Normal ?+ ---+ ---+ -------+| ?60-89 ?| ?Stage two ?| ? Decreased GFR ? + --+ --+ ------+| ?30-59 ?| ?Stage three ?| ? Stage three ? + --+ --+ ------+| ?15-29 ?| ?Stage four ? | ? Stage four ?+ ---+ ---+ -------+| ?<15 (or dialysis) ? ?| ?Stage five ? | ? Stage five ?+ ---+ ---+ -------+ *Each stage assumes the associated GFR level has been in effect for at least three months. ?Stages 1 to 5, with or without kidney disease, indicate chronic kidney disease. Notes: Determination of stages one and two (with eGFR >59mL/min/1.73 m2) requires estimation of kidney damage for at least three months as defined by structural or functional abnormalities of the kidney, manifested by either:Pathological abnormalities or Markers of kidney damage (including abnormalities in the composition of the blood or urine or abnormalities in imaging tests). Lab Interpretation Abnormal (test code = 83255-2) [facility] 02:09:25 Test Item Value Reference Range Interpretation Comments MAGNESIUM (test code = 7129632342) 1.6 mg/dL 1.7-2.4 L Lab Interpretation (test code = Abnormal 49826-1) [facility]20[facility] 02:09:05 Test Item Value Reference Range Interpretation Comments PHOSPHORUS (test code = 0276226919) 8.0 mg/dL 2.5-5.0 H Lab Interpretation (test code = Abnormal 21738-3) [facility] WITH [id number] 01:54:41 Test Item Value Reference Range Interpretation Comments WBC (test code = 9.69 See_Comment [Automated 6690-2) message] The sy stem which generated this result transmitted reference range : 4.30 - 11.10 10*3/?L. The reference range was not used to interpret this result as normal/abnormal . RBC (test code = 2.62 See_Comment L [Automated 789-8) message] The sy stem which generated this result transmitted reference range : 3.93 - 5.25 10*6/?L. The reference range was not used to interpret this result as normal/abnormal . HGB (test code = 7.9 g/dL 11.6-15.0 L 718-7) HCT (test code = 25.7 % 35.7-45.2 L 4544-3) MCV (test code = 98.1 fL 80.6-95.5 H 787-2) MCH (test code = 30.2 pg 25.9-32.8 785-6) MCHC (test code = 30.7 g/dL 31.6-35.1 L 786-4) RDW-SD (test code = 51.3 fL 39.0-49.9 H 14742-1) RDW-CV (test code = 14.9 % 12.0-15.5 788-0) PLT (test code = 230 See_Comment [Automated 777-3) message] The sy stem which generated this result transmitted reference range : 166 - 358 10*3/ ?L. The reference r kristal was not used to interpret this result as normal/abnormal . MPV (test code = 11.1 fL 9.5-12.9 84984-4) NRBC/100 WBC (test 0.0 See_Comment [Automat ed code = 3167010369) message] The system which generated this result transmitted reference range : 0.0 - 10.0 /100 WBCs. The refer ence range was not u sed to interpret th is result as normal/abnormal . NRBC x10^3 (test code See_Comment [Auto mated = 9130549940) message] The s ystem which generated this result transmitted reference range : 10*3/?L. The reference range was not used to interpret this result as normal/abnormal . GRAN MAT (NEUT) % 77.2 % (test code = 770-8) IMM GRAN % (test code 0.80 % = 8159597423) LYMPH % (test code = 10.4 % 736-9) MONO % (test code = 10.3 % 5905-5) EOS % (test code = 1.2 % 713-8) BASO % (test code = 0.1 % 706-2) GRAN MAT x10^3(ANC) 7.47 10*3/uL 1.88-7.09 H (test code = 2946591760) IMM GRAN x10^3 (test 0.08 10*3/uL 0.00-0.06 H code = 6120913262) LYMPH x10^3 (test code 1.01 10*3/uL 1.32-3.29 L = 731-0) MONO x10^3 (test code 1.00 10*3/uL 0.33-0.92 H = 742-7) EOS x10^3 (test code = 0.12 10*3/uL 0.03-0.39 711-2) BASO x10^3 (test code 0.01-0.07 = 704-7) Lab Interpretation Abnormal (test code = 26687-2) [facility] METABOLIC PANEL (NA, K, CL, CO2, GLUCOSE, BUN, CREATININE, CA)2022-08-23 22:04:13 Test Item Value Reference Range Interpretation Comments NA (test code = 134 mmol/L 135-145 L 9655984362) K (test code = 4.7 mmol/L 3.5-5.0 3204325090) CL (test code = 108 mmol/L 98-108 4684067522) CO2 TOTAL (test code = 16 mmol/L 23-31 L 2395643965) AGAP (test code = 10 2-16 2346337732) BUN (test code = 61 mg/dL 7-23 H 9963545031) GLUCOSE (test code = 134 mg/dL 70-110 H 3085590591) CREATININE (test code = 4.36 mg/dL 0.50-1.04 H 4351017498) CALCIUM (test code = 8.5 mg/dL 8.6-10.6 L 4996935915) eGFR (test code = 9.7 mL/min/1.73m2 6875695337) ANNABEL (test code = ANNABEL) Association of Glomerular Filtration Rate (GFR) and Staging of Kidney Disease* + --+ --+ ------+| GFR (mL/min/1.73 m2) ?| With Kidney Damage ?| ?Without Kidney Damage+ --------+ --------+ +| ?>90 ?| ?Stage one ?| ? Normal ?+ ---+ ---+ -------+| ?60-89 ?| ?Stage two ?| ? Decreased GFR ? + --+ --+ ------+| ?30-59 ?| ?Stage three ?| ? Stage three ? + --+ --+ ------+| ?15-29 ?| ?Stage four ? | ? Stage four ?+ ---+ ---+ -------+| ?<15 (or dialysis) ? ?| ?Stage five ? | ? Stage five ?+ ---+ ---+ -------+ *Each stage assumes the associated GFR level has been in effect for at least three months. ?Stages 1 to 5, with or without kidney disease, indicate chronic kidney disease. Notes: Determination of stages one and two (with eGFR >59mL/min/1.73 m2) requires estimation of kidney damage for at least three months as defined by structural or functional abnormalities of the kidney, manifested by either:Pathological abnormalities or Markers of kidney damage (including abnormalities in the composition of the blood or urine or abnormalities in imaging tests). Lab Interpretation Abnormal (test code = 14847-2) [facility] 22:02:16 Test Item Value Reference Range Interpretation Comments APTT Patient (test 47 See_Comment H [Automat ed code = 3173-2) message] The system which generated this result transmitted reference range : 23 - 38 Seconds . The reference range was not used to interpr et this result as normal/abnormal . ANNABEL (test code = ANNABEL) The [facility] patient population mean normal value for aPTT is 30 seconds. Lab Interpretation Abnormal (test code = 34605-2) [facility] DistrictProth[facility] Time / [id number] 21:59:56 Test Item Value Reference Range Interpretation Comments PROTIME PATIENT (test 15.7 See_Comment H [Auto mated message] code = 5964-2) The system wh ich generated this result transmitted ref erence range: 12.0 - 1 4.7 Seconds. The reference range was not used to int erpret this result as normal/abnormal . INR (test code = 6301-6) 1.3 Nor mal INR <1.1; Warfarin Therap eutic range 2.0 to 3. 0 or 2.5 to 3.5, dep ending upon the indica tions. Lab Interpretation (test Abnormal code = 61389-4) [facility] WITH [id number] 21:52:53 Test Item Value Reference Range Interpretation Comments WBC (test code = 8.64 See_Comment [Automated 8390-2) message] The sy stem which generated this result transmitted reference range : 4.30 - 11.10 10*3/?L. The reference range was not used to interpret this result as normal/abnormal . RBC (test code = 2.76 See_Comment L [Automated 049-8) message] The sy stem which generated this result transmitted reference range : 3.93 - 5.25 10*6/?L. The reference range was not used to interpret this result as normal/abnormal . HGB (test code = 8.2 g/dL 11.6-15.0 L 718-7) HCT (test code = 27.2 % 35.7-45.2 L 4544-3) MCV (test code = 98.6 fL 80.6-95.5 H 787-2) MCH (test code = 29.7 pg 25.9-32.8 785-6) MCHC (test code = 30.1 g/dL 31.6-35.1 L 786-4) RDW-SD (test code = 51.0 fL 39.0-49.9 H 02564-2) RDW-CV (test code = 15.0 % 12.0-15.5 788-0) PLT (test code = 231 See_Comment [Automated 777-3) message] The sy stem which generated this result transmitted reference range : 166 - 358 10*3/ ?L. The reference r kristal was not used to interpret this result as normal/abnormal . MPV (test code = 10.3 fL 9.5-12.9 34830-4) NRBC/100 WBC (test 0.0 See_Comment [Automat ed code = 3276165731) message] The system which generated this result transmitted reference range : 0.0 - 10.0 /100 WBCs. The refer ence range was not u sed to interpret th is result as normal/abnormal . NRBC x10^3 (test code See_Comment [Auto mated = 7158883437) message] The s ystem which generated this result transmitted reference range : 10*3/?L. The reference range was not used to interpret this result as normal/abnormal . GRAN MAT (NEUT) % 83.6 % (test code = 770-8) IMM GRAN % (test code 0.70 % = 1505114565) LYMPH % (test code = 8.0 % 736-9) MONO % (test code = 7.1 % 5905-5) EOS % (test code = 0.5 % 713-8) BASO % (test code = 0.1 % 706-2) GRAN MAT x10^3(ANC) 7.23 10*3/uL 1.88-7.09 H (test code = 5710089407) IMM GRAN x10^3 (test 0.06 10*3/uL 0.00-0.06 code = 1606203141) LYMPH x10^3 (test code 0.69 10*3/uL 1.32-3.29 L = 731-0) MONO x10^3 (test code 0.61 10*3/uL 0.33-0.92 = 742-7) EOS x10^3 (test code = 0.04 10*3/uL 0.03-0.39 711-2) BASO x10^3 (test code 0.01-0.07 = 704-7) Lab Interpretation Abnormal (test code = 57936-5) [facility]. METABOLIC PANEL ([id number])2022-08-22 22:01:29 Test Item Value Reference Range Interpretation Comments NA (test code = 134 mmol/L 135-145 L 9838494829) K (test code = 4.8 mmol/L 3.5-5.0 7013303772) CL (test code = 107 mmol/L 98-108 8467055740) CO2 TOTAL (test code = 18 mmol/L 23-31 L 5194307369) AGAP (test code = 9 2-16 1695353719) BUN (test code = 66 mg/dL 7-23 H 2049749652) GLUCOSE (test code = 91 mg/dL 70-110 5360435398) CREATININE (test code = 3.87 mg/dL 0.50-1.04 H 3406389125) TOTAL BILI (test code = 0.3 mg/dL 0.1-1.4 2536856437) CALCIUM (test code = 8.9 mg/dL 8.6-10.6 2545630986) T PROTEIN (test code = 5.8 g/dL 6.3-8.2 L 3177536564) ALBUMIN (test code = 3.1 g/dL 3.5-5.0 L 2621585219) ALK PHOS (test code = 77 U/L 34-122 9897781820) ALTv (test code = 17 U/L 5-35 1742-6) AST(SGOT) (test code = 21 U/L 13-40 1148034435) eGFR (test code = 11.1 mL/min/1.73m2 2613079140) ANNABEL (test code = ANNABEL) Association of Glomerular Filtration Rate (GFR) and Staging of Kidney Disease* + --+ --+ ------+| GFR (mL/min/1.73 m2) ?| With Kidney Damage ?| ?Without Kidney Damage+ --------+ --------+ +| ?>90 ?| ?Stage one ?| ? Normal ?+ ---+ ---+ -------+| ?60-89 ?| ?Stage two ?| ? Decreased GFR ? + --+ --+ ------+| ?30-59 ?| ?Stage three ?| ? Stage three ? + --+ --+ ------+| ?15-29 ?| ?Stage four ? | ? Stage four ?+ ---+ ---+ -------+| ?<15 (or dialysis) ? ?| ?Stage five ? | ? Stage five ?+ ---+ ---+ -------+ *Each stage assumes the associated GFR level has been in effect for at least three months. ?Stages 1 to 5, with or without kidney disease, indicate chronic kidney disease. Notes: Determination of stages one and two (with eGFR >59mL/min/1.73 m2) requires estimation of kidney damage for at least three months as defined by structural or functional abnormalities of the kidney, manifested by either:Pathological abnormalities or Markers of kidney damage (including abnormalities in the composition of the blood or urine or abnormalities in imaging tests). Lab Interpretation Abnormal (test code = 15152-4) [facility] [id number] 21:20:07 Test Item Value Reference Range Interpretation Comments TROPONIN I (test code = 0.008 ng/mL <=0.034 7893308357) ANNABEL (test code = ANNABEL) Reference (Normal) Range (defined by the 99th percentile reference limit): <= 0.034 ng/mL Note: Cardiac troponin begins to rise 3-4 hours after the onset of ischemia. Repeat in 4-6 hours if the sample was drawn within 3-4 hours of the onset of the symptom and found normal. Diagnosis of myocardial injury is made with acute changes in cTn concentrations with at least one serial sample above the 99th percentile upper reference limit (URL), taken together with the patient's clinical presentation. Biotin has been reported to cause a negative bias, interpret results relative to patient's use of biotin. Lab Interpretation Normal (test code = 75088-2) [facility]MINAL [id number] 21:16:43 Test Item Value Reference Range Interpretation Comments NT-proBNP (test code = 1040 pg/mL <=450 H 4573669359) ANNABEL (test code = ANNABEL) Biotin has been reported to cause a negative bias, interpret results relative to patient's use of biotin. Lab Interpretation (test Abnormal code = 39548-9) [facility] 21:10:02 Test Item Value Reference Range Interpretation Comments LIPASE (test code = 0243024126) 62 U/L 0-220 Lab Interpretation (test code = Normal 28196-6) [facility] DistrictCBC WITH [id number] 20:46:58 Test Item Value Reference Range Interpretation Comments WBC (test code = 7.57 See_Comment [Automated 6690-2) message] The sy stem which generated this result transmitted reference range : 4.30 - 11.10 10*3/?L. The reference range was not used to interpret this result as normal/abnormal . RBC (test code = 3.15 See_Comment L [Automated 789-8) message] The sy stem which generated this result transmitted reference range : 3.93 - 5.25 10*6/?L. The reference range was not used to interpret this result as normal/abnormal . HGB (test code = 9.5 g/dL 11.6-15.0 L 718-7) HCT (test code = 30.3 % 35.7-45.2 L 4544-3) MCV (test code = 96.2 fL 80.6-95.5 H 787-2) MCH (test code = 30.2 pg 25.9-32.8 785-6) MCHC (test code = 31.4 g/dL 31.6-35.1 L 786-4) RDW-SD (test code = 50.4 fL 39.0-49.9 H 98019-6) RDW-CV (test code = 15.0 % 12.0-15.5 788-0) PLT (test code = 260 See_Comment [Automated 777-3) message] The sy stem which generated this result transmitted reference range : 166 - 358 10*3/ ?L. The reference r kristal was not used to interpret this result as normal/abnormal . MPV (test code = 11.0 fL 9.5-12.9 28207-3) NRBC/100 WBC (test 0.0 See_Comment [Automat ed code = 6116021327) message] The system which generated this result transmitted reference range : 0.0 - 10.0 /100 WBCs. The refer ence range was not u sed to interpret th is result as normal/abnormal . NRBC x10^3 (test code See_Comment [Auto mated = 9355806645) message] The s ystem which generated this result transmitted reference range : 10*3/?L. The reference range was not used to interpret this result as normal/abnormal . GRAN MAT (NEUT) % 61.1 % (test code = 770-8) IMM GRAN % (test code 0.50 % = 6277679917) LYMPH % (test code = 13.2 % 736-9) MONO % (test code = 9.2 % 5905-5) EOS % (test code = 15.6 % 713-8) BASO % (test code = 0.4 % 706-2) GRAN MAT x10^3(ANC) 4.62 10*3/uL 1.88-7.09 (test code = 1897313698) IMM GRAN x10^3 (test 0.04 10*3/uL 0.00-0.06 code = 2628286115) LYMPH x10^3 (test code 1.00 10*3/uL 1.32-3.29 L = 731-0) MONO x10^3 (test code 0.70 10*3/uL 0.33-0.92 = 742-7) EOS x10^3 (test code = 1.18 10*3/uL 0.03-0.39 H 711-2) BASO x10^3 (test code 0.03 10*3/uL 0.01-0.07 = 704-7) Lab Interpretation Abnormal (test code = 49804-6) [facility] DistrictL[facility] Acid Whole [id number] 20:42:13 Test Item Value Reference Range Interpretation Comments LACTIC ACID (test code = 1.52 mmol/L 0.50-2.20 7155665859) Lab Interpretation (test code = Normal 90445-4) [facility]TR[facility] [id number] 14:02:46 Test Item Value Reference Interpretation Comments Range TROPONIN I (test 0.010 ng/mL See_Comment [Automated code = 7936144714) message] The system which generated this result transmitted reference range : <=0.034. The reference range was not used to interpret this result as normal/abnormal . ANNABEL (test code = Reference (Normal) ANNABEL) Range (defined by the 99th percentile reference limit): <= 0.034 ng/mL Note: Cardiac troponin begins to rise 3-4 hours after the onset of ischemia. Repeat in 4-6 hours if the sample was drawn within 3-4 hours of the onset of the symptom and found normal. Diagnosis of myocardial injury is made with acute changes in cTn concentrations with at least one serial sample above the 99th percentile upper reference limit (URL), taken together with the patient's clinical presentation. Biotin has been reported to cause a negative bias, interpret results relative to patient's use of biotin. Lab Interpretation Normal (test code = 52457-1) [facility] 11:49:33 Test Item Value Reference Range Interpretation Comments MAGNESIUM (test code = 8203278461) 1.8 mg/dL 1.7-2.4 Lab Interpretation (test code = Normal 68878-5) [facility] METABOLIC PANEL (NA, K, CL, CO2, GLUCOSE, BUN, CREATININE, CA)2022-05-25 11:49:13 Test Item Value Reference Range Interpretation Comments NA (test code = 138 mmol/L 135-145 5335815252) K (test code = 3.6 mmol/L 3.5-5.0 7389305980) CL (test code = 106 mmol/L 98-108 7904907340) CO2 TOTAL (test code = 26 mmol/L 23-31 4648250023) AGAP (test code = 2-16 8277287948) BUN (test code = 33 mg/dL 7-23 H 2501964444) GLUCOSE (test code = 109 mg/dL 70-110 0023574437) CREATININE (test code = 1.98 mg/dL 0.50-1.04 H 9522292209) CALCIUM (test code = 9.3 mg/dL 8.6-10.6 3471429136) eGFR (test code = mL/min/1.73m2 9194231272) ANNABEL (test code = ANNABEL) Association of Glomerular Filtration Rate (GFR) and Staging of Kidney Disease* + --+ --+ ------+| GFR (mL/min/1.73 m2) ?| With Kidney Damage ?| ?Without Kidney Damage+ --------+ --------+ +| ?>90 ?| ?Stage one ?| ? Normal ?+ ---+ ---+ -------+| ?60-89 ?| ?Stage two ?| ? Decreased GFR ? + --+ --+ ------+| ?30-59 ?| ?Stage three ?| ? Stage three ? + --+ --+ ------+| ?15-29 ?| ?Stage four ? | ? Stage four ?+ ---+ ---+ -------+| ?<15 (or dialysis) ? ?| ?Stage five ? | ? Stage five ?+ ---+ ---+ -------+ *Each stage assumes the associated GFR level has been in effect for at least three months. ?Stages 1 to 5, with or without kidney disease, indicate chronic kidney disease. Notes: Determination of stages one and two (with eGFR >59mL/min/1.73 m2) requires estimation of kidney damage for at least three months as defined by structural or functional abnormalities of the kidney, manifested by either:Pathological abnormalities or Markers of kidney damage (including abnormalities in the composition of the blood or urine or abnormalities in imaging tests). Lab Interpretation Abnormal (test code = 79378-3) [facility] DistrictProthrombin Time/[id number] 11:44:31 Test Item Value Reference Range Interpretation Comments PROTIME PATIENT (test See_Comment H [Auto mated message] code = 5964-2) The system wh ich generated this result transmitted ref erence range: 12.0 - 1 4.7 Seconds. The reference range was not used to int erpret this result as normal/abnormal . INR (test code = 6301-6) Nor mal INR <1.1; Warfarin Therap eutic range 2.0 to 3. 0 or 2.5 to 3.5, dep ending upon the indica tions. Lab Interpretation (test Abnormal code = 72443-8) [facility] WITH [id number] 10:06:46 Test Item Value Reference Range Interpretation Comments WBC (test code = See_Comment [Automated 1790-2) message] The sy stem which generated this result transmitted reference range : 4.30 - 11.10 10*3/?L. The reference range was not used to interpret this result as normal/abnormal . RBC (test code = See_Comment L [Automated 349-8) message] The sy stem which generated this result transmitted reference range : 3.93 - 5.25 10*6/?L. The reference range was not used to interpret this result as normal/abnormal . HGB (test code = 8.3 g/dL 11.6-15.0 L 718-7) HCT (test code = 28.0 % 35.7-45.2 L 4544-3) MCV (test code = 89.5 fL 80.6-95.5 787-2) MCH (test code = 26.5 pg 25.9-32.8 785-6) MCHC (test code = 29.6 g/dL 31.6-35.1 L 786-4) RDW-SD (test code = 62.7 fL 39.0-49.9 H 00285-8) RDW-CV (test code = 20.3 % 12.0-15.5 H 788-0) PLT (test code = See_Comment [Automated 777-3) message] The sy stem which generated this result transmitted reference range : 166 - 358 10*3/ ?L. The reference r kristal was not used to interpret this result as normal/abnormal . MPV (test code = 11.6 fL 9.5-12.9 06095-2) NRBC/100 WBC (test See_Comment [Automat ed code = 9417262568) message] The system which generated this result transmitted reference range : 0.0 - 10.0 /100 WBCs. The refer ence range was not u sed to interpret th is result as normal/abnormal . NRBC x10^3 (test code See_Comment [Auto mated = 4363250025) message] The s ystem which generated this result transmitted reference range : 10*3/?L. The reference range was not used to interpret this result as normal/abnormal . GRAN MAT (NEUT) % 54.4 % (test code = 770-8) IMM GRAN % (test code 0.60 % = 9480162358) LYMPH % (test code = 18.4 % 736-9) MONO % (test code = 10.6 % 5905-5) EOS % (test code = 15.6 % 713-8) BASO % (test code = 0.4 % 706-2) GRAN MAT x10^3(ANC) 5.46 10*3/uL 1.88-7.09 (test code = 9021854490) IMM GRAN x10^3 (test 0.06 10*3/uL 0.00-0.06 code = 6541663701) LYMPH x10^3 (test code 1.85 10*3/uL 1.32-3.29 = 731-0) MONO x10^3 (test code 1.07 10*3/uL 0.33-0.92 H = 742-7) EOS x10^3 (test code = 1.57 10*3/uL 0.03-0.39 H 711-2) BASO x10^3 (test code 0.04 10*3/uL 0.01-0.07 = 704-7) Lab Interpretation Abnormal (test code = 01458-5) [facility]GLYCOSYL[facility] HEMOGLOBIN (A1C)2022-05-24 15:43:37 Test Item Value Reference Range Interpretation Comments HGB A1C (test code = 5.2 % 4.0-5.7 4548-4) ANNABEL (test code = ANNABEL) Reference RangesNormal: <5.7%Prediabetes: 5.7 - 6.4%Diabetes: > 6.5% Lab Interpretation (test Normal code = 47712-0) [facility] DistrictIRON [id number] 15:12:50 Test Item Value Reference Range Interpretation Comments IRON (test code = 0512217198) 77 ug/dL 50-160 TIBC (test code = 6428944178) 304 ug/dL 250-410 % FE SAT (test code = 3126058568) 25 % 20-50 Lab Interpretation (test code = Normal 97421-9) [facility]COMP. METABOLIC PANEL (75561)2022-05-24 01:10:10 Test Item Value Reference Range Interpretation Comments NA (test code = 141 mmol/L 135-145 7399000134) K (test code = 4.0 mmol/L 3.5-5.0 0956156793) CL (test code = 106 mmol/L 98-108 0490754085) CO2 TOTAL (test code = 29 mmol/L 23-31 1557339468) AGAP (test code = 2-16 9263840924) BUN (test code = 41 mg/dL 7-23 H 1487599544) GLUCOSE (test code = 128 mg/dL 70-110 H 0320874394) CREATININE (test code = 2.02 mg/dL 0.50-1.04 H 4788827344) TOTAL BILI (test code = 0.3 mg/dL 0.1-1.0 2740574394) CALCIUM (test code = 9.3 mg/dL 8.6-10.6 0144001682) T PROTEIN (test code = 6.4 g/dL 6.3-8.2 6055311100) ALBUMIN (test code = 3.7 g/dL 3.5-5.0 5614042780) ALK PHOS (test code = 96 U/L 34-122 8427022365) ALTv (test code = 18 U/L 5-35 1742-6) AST(SGOT) (test code = 23 U/L 13-40 1417184013) eGFR (test code = mL/min/1.73m2 2172988655) ANNABEL (test code = ANNABEL) Association of Glomerular Filtration Rate (GFR) and Staging of Kidney Disease* + --+ --+ ------+| GFR (mL/min/1.73 m2) ?| With Kidney Damage ?| ?Without Kidney Damage+ --------+ --------+ +| ?>90 ?| ?Stage one ?| ? Normal ?+ ---+ ---+ -------+| ?60-89 ?| ?Stage two ?| ? Decreased GFR ? + --+ --+ ------+| ?30-59 ?| ?Stage three ?| ? Stage three ? + --+ --+ ------+| ?15-29 ?| ?Stage four ? | ? Stage four ?+ ---+ ---+ -------+| ?<15 (or dialysis) ? ?| ?Stage five ? | ? Stage five ?+ ---+ ---+ -------+ *Each stage assumes the associated GFR level has been in effect for at least three months. ?Stages 1 to 5, with or without kidney disease, indicate chronic kidney disease. Notes: Determination of stages one and two (with eGFR >59mL/min/1.73 m2) requires estimation of kidney damage for at least three months as defined by structural or functional abnormalities of the kidney, manifested by either:Pathological abnormalities or Markers of kidney damage (including abnormalities in the composition of the blood or urine or abnormalities in imaging tests). Lab Interpretation Abnormal (test code = 65226-0) [facility] DistrictTR[facility]IN [id number] 00:59:49 Test Item Value Reference Interpretation Comments Range TROPONIN I (test 0.004 ng/mL See_Comment [Automated code = 3873004651) message] The system which generated this result transmitted reference range : <=0.034. The reference range was not used to interpret this result as normal/abnormal . ANNABEL (test code = Reference (Normal) ANNABEL) Range (defined by the 99th percentile reference limit): <= 0.034 ng/mL Note: Cardiac troponin begins to rise 3-4 hours after the onset of ischemia. Repeat in 4-6 hours if the sample was drawn within 3-4 hours of the onset of the symptom and found normal. Diagnosis of myocardial injury is made with acute changes in cTn concentrations with at least one serial sample above the 99th percentile upper reference limit (URL), taken together with the patient's clinical presentation. Biotin has been reported to cause a negative bias, interpret results relative to patient's use of biotin. Lab Interpretation Normal (test code = 59880-4) [facility] DistrictN-TERMINAL [id number] 00:56:32 Test Item Value Reference Range Interpretation Comments NT-proBNP (test code 1800 pg/mL See_Comment H [Autom ated = 1258674898) message] The system which generated this result transmitted reference range : <=450. The reference range was not used to interpret this result as normal/abnormal . ANNABEL (test code = ANNABEL) Biotin has been reported to cause a negative bias, interpret results relative to patient's use of biotin. Lab Interpretation Abnormal (test code = 60622-5) [facility] WITH [id number] 00:38:09 Test Item Value Reference Range Interpretation Comments WBC (test code = See_Comment H [Automated 6690-2) message] The sy stem which generated this result transmitted reference range : 4.30 - 11.10 10*3/?L. The reference range was not used to interpret this result as normal/abnormal . RBC (test code = See_Comment L [Automated 789-8) message] The sy stem which generated this result transmitted reference range : 3.93 - 5.25 10*6/?L. The reference range was not used to interpret this result as normal/abnormal . HGB (test code = 8.1 g/dL 11.6-15.0 L 718-7) HCT (test code = 27.1 % 35.7-45.2 L 4544-3) MCV (test code = 89.4 fL 80.6-95.5 787-2) MCH (test code = 26.7 pg 25.9-32.8 785-6) MCHC (test code = 29.9 g/dL 31.6-35.1 L 786-4) RDW-SD (test code = 61.1 fL 39.0-49.9 H 12737-9) RDW-CV (test code = 19.9 % 12.0-15.5 H 788-0) PLT (test code = See_Comment [Automated 777-3) message] The sy stem which generated this result transmitted reference range : 166 - 358 10*3/ ?L. The reference r kristal was not used to interpret this result as normal/abnormal . MPV (test code = 11.6 fL 9.5-12.9 29935-5) NRBC/100 WBC (test See_Comment [Automat ed code = 4725354700) message] The system which generated this result transmitted reference range : 0.0 - 10.0 /100 WBCs. The refer ence range was not u sed to interpret th is result as normal/abnormal . NRBC x10^3 (test code See_Comment [Auto mated = 1953301286) message] The s ystem which generated this result transmitted reference range : 10*3/?L. The reference range was not used to interpret this result as normal/abnormal . GRAN MAT (NEUT) % 57.8 % (test code = 770-8) IMM GRAN % (test code 0.40 % = 2202045053) LYMPH % (test code = 15.8 % 736-9) MONO % (test code = 11.0 % 5905-5) EOS % (test code = 14.6 % 713-8) BASO % (test code = 0.4 % 706-2) GRAN MAT x10^3(ANC) 6.55 10*3/uL 1.88-7.09 (test code = 1773590604) IMM GRAN x10^3 (test 0.05 10*3/uL 0.00-0.06 code = 9722456904) LYMPH x10^3 (test code 1.79 10*3/uL 1.32-3.29 = 731-0) MONO x10^3 (test code 1.25 10*3/uL 0.33-0.92 H = 742-7) EOS x10^3 (test code = 1.66 10*3/uL 0.03-0.39 H 711-2) BASO x10^3 (test code 0.04 10*3/uL 0.01-0.07 = 704-7) Lab Interpretation Abnormal (test code = 47689-4) [facility] - 30 minutes after transfusion of each [id number] 21:29:02 Test Item Value Reference Range Interpretation Comments WBC (test code = 6690-2) See_Comment [A utomated message] The system [employer] generated this result transmit beatriz reference range : 4.30 - 11.10 10*3/?L. The reference range was not used to interpret this result as normal/abnormal . RBC (test code = 789-8) See_Comment L [Au tomated message] The system [employer] generated this result transmit beatriz reference range : 3.93 - 5.25 10* 6/?L. The reference r kristal was not used to interpret this result as normal/abnormal . HGB (test code = 718-7) 7.8 g/dL 11.6-15.0 L HCT (test code = 4544-3) 24.7 % 35.7-45.2 L MCH (test code = 785-6) 26.7 pg 25.9-32.8 MCV (test code = 787-2) 84.6 fL 80.6-95.5 MCHC (test code = 786-4) 31.6 g/dL 31.6-35.1 PLT (test code = 777-3) See_Comment [Au tomated message] The system [employer] generated this result transmit beatriz reference range : 166 - 358 10*3/?L. The reference range was not used to interpret this result as normal/abnormal . MPV (test code = 11.2 fL 9.5-12.9 77908-5) RDW-CV (test code = 15.9 % 12.0-15.5 H 788-0) RDW-SD (test code = 48.4 fL 39.0-49.9 57587-2) NRBC x10^3 (test code = See_Comment [Au tomated message] 6142113473) The system [employer] generated this result transmit beatriz reference range : 10*3/?L. The reference range was not used to interpret this result as normal/abnormal . NRBC/100 WBC (test code See_Comment [Au tomated message] = 1063659503) The [facility] generated this result transmit beatriz reference range : 0.0 - 10.0 /100 WBC s. The reference r kristal was not used to interpret this result as normal/abnormal . IPF % (test code = 9207661328) Lab Interpretation (test Abnormal code = 30085-5) [facility] - 30 minutes after transfusion of each [id number] 21:29:02 Test Item Value Reference Range Interpretation Comments WBC (test code = 6690-2) See_Comment [A utomated message] The system [employer] generated this result transmit beatriz reference range : 4.30 - 11.10 10*3/?L. The reference range was not used to interpret this result as normal/abnormal . RBC (test code = 789-8) See_Comment L [Au tomated message] The system [employer] generated this result transmit beatriz reference range : 3.93 - 5.25 10* 6/?L. The reference r kristal was not used to interpret this result as normal/abnormal . HGB (test code = 718-7) 7.8 g/dL 11.6-15.0 L HCT (test code = 4544-3) 24.7 % 35.7-45.2 L MCH (test code = 785-6) 26.7 pg 25.9-32.8 MCV (test code = 787-2) 84.6 fL 80.6-95.5 MCHC (test code = 786-4) 31.6 g/dL 31.6-35.1 PLT (test code = 777-3) See_Comment [Au tomated message] The system [employer] generated this result transmit beatriz reference range : 166 - 358 10*3/?L. The reference range was not used to interpret this result as normal/abnormal . MPV (test code = 11.2 fL 9.5-12.9 90516-8) RDW-CV (test code = 15.9 % 12.0-15.5 H 788-0) RDW-SD (test code = 48.4 fL 39.0-49.9 49405-0) NRBC x10^3 (test code = See_Comment [Au tomated message] 1827006345) The system [employer] generated this result transmit beatriz reference range : 10*3/?L. The reference range was not used to interpret this result as normal/abnormal . NRBC/100 WBC (test code See_Comment [Au tomated message] = 0843493504) The system [place] [facility] generated this result transmit beatriz reference range : 0.0 - 10.0 /100 WBC s. The reference r kristal was not used to interpret this result as normal/abnormal . IPF % (test code = 4682542556) Lab Interpretation (test Abnormal code = 34417-7) [facility] District[facility]an[facility] ([facility]E)2022-05-15 19:34:12 Test Item Value Reference Range Interpretation Comments Height (test code = in 9750255608) Weight (test code = lbs 9622497639) Systolic BP (test code = mmHg 4762918536) Diastolic BP (test code mmHg = 6513175556) Heart Rate (test code = bpm 7590198002) EF(Teich) (test code = 59.30 % 7135215565) LVIDD (test code = 4.20 cm 8211627922) LVIDS (test code = 2.90 cm 9450541873) Left Ventricular End 32.3 mL Systolic Volume by Teichholz Method (test code = 0077540) Left Ventricular End 79.3 mL Diastolic Volume by Teichholz Method (test code = 8096604) IVS (test code = 0.86 cm 2532622800) LVPWD (test code = 0.84 cm 4917243265) FS (test code = 31 % 0622083188) BSA (test code = 1.67 m2 2757538051) PW (test code = 0.84 cm 0.6-1.8 9374148313) EF - 2D (test code = 59.30 % 48547261) Interventricular Septum 0.86 cm Diastolic Thickness by 2D (test code = 3301607) Radiology Study observation (narrative) (test code = 16545-5) ANNABEL (test code = ANNABEL) ?Focused study for evaluation of pericardial effusion. ?Left?Ventricle: Left ventricle size is normal. Normal wall thickness. Normal wall motion. Hyperdynamic systolic function with a visually estimated EF of 60 - 65%. ?Right?Ventricle: Right ventricle size is normal. Normal systolic function. ?Pericardium: Evidence of epicardial fat. Trivial pericardial effusion present. Claire Mccracken MD Left VentricleLeft ventricle size is normal. Normal wall thickness. Normal wall motion. Hyperdynamic systolic function with a visually estimated EF of 60 - 65%.Right VentricleRight ventricle size is normal. Normal systolic function.Left AtriumLeft atrium size is normal.Right AtriumRight atrium size is normal.IVC/SVCIVC normal in size and respiratory variation.Mitral ValveNo leaflet thickening. Mild mitral annular calcification.Tricusp id ValveTricuspid valve structure is normal.Aortic ValveAortic valve structure is normal.Pulmonic ValveNot well visualized.Ascending AortaNormal sized sinus of Valsalva.PericardiumE vidence of epicardial fat. Trivial pericardial effusion present.Study DetailsA limited echocardiogram was performed using 2D, color flow Doppler and spectral Doppler. [facility] ([facility]E)2022-05-15 19:34:12 Test Item Value Reference Range Interpretation Comments Height (test code = in 1852875323) Weight (test code = lbs 8305084787) Systolic BP (test code = mmHg 5304651127) Diastolic BP (test code mmHg = 4867448287) Heart Rate (test code = bpm 6005498488) EF(Teich) (test code = 59.30 % 2836850900) LVIDD (test code = 4.20 cm 4176448446) LVIDS (test code = 2.90 cm 4989535510) Left Ventricular End 32.3 mL Systolic Volume by Teichholz Method (test code = 4559867) Left Ventricular End 79.3 mL Diastolic Volume by Teichholz Method (test code = 1788200) IVS (test code = 0.86 cm 4453070194) LVPWD (test code = 0.84 cm 2918260052) FS (test code = 31 % 4030177223) BSA (test code = 1.67 m2 7269472788) PW (test code = 0.84 cm 0.6-1.2 6919905486) EF - 2D (test code = 59.30 % 89629238) Interventricular Septum 0.86 cm Diastolic Thickness by 2D (test code = 7772910) Radiology Study observation (narrative) (test code = 47764-2) ANNABEL (test code = ANNABEL) ?Focused study for evaluation of pericardial effusion. ?Left?Ventricle: Left ventricle size is normal. Normal wall thickness. Normal wall motion. Hyperdynamic systolic function with a visually estimated EF of 60 - 65%. ?Right?Ventricle: Right ventricle size is normal. Normal systolic function. ?Pericardium: Evidence of epicardial fat. Trivial pericardial effusion present. Claire Mccracken MD Left VentricleLeft ventricle size is normal. Normal wall thickness. Normal wall motion. Hyperdynamic systolic function with a visually estimated EF of 60 - 65%.Right VentricleRight ventricle size is normal. Normal systolic function.Left AtriumLeft atrium size is normal.Right AtriumRight atrium size is normal.IVC/SVCIVC normal in size and respiratory variation.Mitral ValveNo leaflet thickening. Mild mitral annular calcification.Tricusp id ValveTricuspid valve structure is normal.Aortic ValveAortic valve structure is normal.Pulmonic ValveNot well visualized.Ascending AortaNormal sized sinus of Valsalva.PericardiumE vidence of epicardial fat. Trivial pericardial effusion present.Study DetailsA limited echocardiogram was performed using 2D, color flow Doppler and spectral Doppler. [facility] DistrictPrep[facility] Packed RBC (in units), 1 Units 2022-05-15 18:13:03 Test Item Value Reference Range Interpretation Comments Cross Match Result Compatible (test code = 4409) ISBT Blood Type Code (test code = 565383) Unit Blood Type (test O Pos code = 4410) Unit Number (test [id number] code = 4411) Blood Expiration Date & Time (test code = 840795) Status Information Issued (test code = 4412) Product Red Blood Cells Identification (test code = 4413) Product Code (test [id number] Performed at [facility] code = 4414) Laboratory Services - [facility] Blood [address] [address]Xiov Free: [phone] A No. [id number] [facility] District[facility] Packed RBC (in units), 1 Units 2022-05-15 18:13:03 Test Item Value Reference Range Interpretation Comments Cross Match Result Compatible (test code = 4409) ISBT Blood Type Code (test code = 153297) Unit Blood Type (test O Pos code = 4410) Unit Number (test [id number] code = 4411) Blood Expiration Date & Time (test code = 246771) Status Information Issued (test code = 4412) Product Red Blood Cells Identification (test code = 4413) Product Code (test [id number] Performed at [facility] code = 4414) Laboratory [facility] Blood [address] [address]Rdce Free: [phone] A No. [id number] [facility] DistrictABORH Confirmation (Lab Only)2022-05-15 17:28:32 Test Item Value Reference Range Interpretation Comments ABO & RH (test code O Positive Performe d at [facility] = 20) Laboratory [facility] Blood [facility] [place] [address]Txnt Free: [phone] A No. [id number] [facility] ([facility] Only)2022-05-15 17:28:32 Test Item Value Reference Range Interpretation Comments ABO & RH (test code O Positive Performe d at [facility] = 20) Laboratory [facility] [place] [address]Nclx Free: [phone] A No. [id number] [facility] DistrictType and Screen - ONCE [id number] 16:50:17 Test Item Value Reference Range Interpretation Comments ABO & RH (test code O POSITIVE Performe d at [facility] = 20) Laboratory [facility] [address] [place] [address]Gyfm Free: [phone] A No. [id number] IAT (test code = Negative Performed a t [facility] 1185) Laboratory [facility] [address] [facility] [address]Gywk Free: [phone] A No. [id number] [facility] DistrictType [facility] Screen - ONCE [id number] 16:50:17 Test Item Value Reference Range Interpretation Comments ABO & RH (test code O POSITIVE Performe d at [facility] = 20) Laboratory [facility] [address] [facility] [address]Spxt Free: [phone] A No. [id number] IAT (test code = Negative Performed a t [facility] 1185) Laboratory [facility] [address]Cbgp Free: [phone] A No. [id number] [facility] DistrictFERRITIN [id number] 15:55:02 Test Item Value Reference Range Interpretation Comments FERRITIN (test code = 8.5 ng/mL 11.0-264.0 L 4004322054) ANNABEL (test code = ANNABEL) Biotin has been reported to cause a negative bias, interpret results relative to patient's use of biotin. Lab Interpretation (test Abnormal code = 26713-1) [facility] DistrictFERRITIN [id number] 15:55:02 Test Item Value Reference Range Interpretation Comments FERRITIN (test code = 8.5 ng/mL 11.0-264.0 L 6769473033) ANNABEL (test code = ANNABEL) Biotin has been reported to cause a negative bias, interpret results relative to patient's use of biotin. Lab Interpretation (test Abnormal code = 56494-5) [id number] 15:27:01 Test Item Value Reference Range Interpretation Comments IRON (test code = 3811381258) 27 ug/dL 50-160 L TIBC (test code = 7391437956) 422 ug/dL 250-410 H % FE SAT (test code = 0612720643) 6 % 20-50 L Lab Interpretation (test code = Abnormal 24120-8) [facility] [id number] 15:27:01 Test Item Value Reference Range Interpretation Comments IRON (test code = 7934775462) 27 ug/dL 50-160 L TIBC (test code = 3334290904) 422 ug/dL 250-410 H % FE SAT (test code = 6096631176) 6 % 20-50 L Lab Interpretation (test code = Abnormal 49985-7) [id number] 13:17:24 Test Item Value Reference Range Interpretation Comments RETIC Count Automated 2.24 % 0.51-1.90 H (test code = 5677489935) RETIC Absolute Count See_Comment [Autom ated message] (test code = 4780891607) The system which generated this result transmitted ref erence range: 0.0230 - 0.0950 10*6/?L. The reference range was not used to int erpret this result as normal/abnormal . IRF % (test code = 28.00 % 2.10-12.60 H 0105443421) RETIC-HE (test code = 18.2 pg 28.1-35.8 L 4582302807) Lab Interpretation (test Abnormal code = 02833-3) [facility] [id number] 13:17:24 Test Item Value Reference Range Interpretation Comments RETIC Count Automated 2.24 % 0.51-1.90 H (test code = 5194483015) RETIC Absolute Count See_Comment [Autom ated message] (test code = 4526891965) The system which generated this result transmitted ref erence range: 0.0230 - 0.0950 10*6/?L. The reference range was not used to int erpret this result as normal/abnormal . IRF % (test code = 28.00 % 2.10-12.60 H 1193884412) RETIC-HE (test code = 18.2 pg 28.1-35.8 L 7963473741) Lab Interpretation (test Abnormal code = 97600-8) [facility] Metabolic Panel (NA, K, CL, CO2, GLUCOSE, BUN, CREATININE, CA)2022-05-15 11:58:37 Test Item Value Reference Range Interpretation Comments NA (test code = 138 mmol/L 135-145 7084540067) K (test code = 3.7 mmol/L 3.5-5.0 7192596489) CL (test code = 106 mmol/L 98-108 7496753068) CO2 TOTAL (test code = 22 mmol/L 23-31 L 1621172369) AGAP (test code = 2-16 7554157282) BUN (test code = 41 mg/dL 7-23 H 1025786111) GLUCOSE (test code = 181 mg/dL 70-110 H 3377814492) CREATININE (test code = 2.30 mg/dL 0.50-1.04 H 2630939958) CALCIUM (test code = 9.0 mg/dL 8.6-10.6 9602752049) eGFR (test code = mL/min/1.73m2 5680186495) ANNABEL (test code = ANNABEL) Association of Glomerular Filtration Rate (GFR) and Staging of Kidney Disease* + --+ --+ ------+| GFR (mL/min/1.73 m2) ?| With Kidney Damage ?| ?Without Kidney Damage+ --------+ --------+ +| ?>90 ?| ?Stage one ?| ? Normal ?+ ---+ ---+ -------+| ?60-89 ?| ?Stage two ?| ? Decreased GFR ? + --+ --+ ------+| ?30-59 ?| ?Stage three ?| ? Stage three ? + --+ --+ ------+| ?15-29 ?| ?Stage four ? | ? Stage four ?+ ---+ ---+ -------+| ?<15 (or dialysis) ? ?| ?Stage five ? | ? Stage five ?+ ---+ ---+ -------+ *Each stage assumes the associated GFR level has been in effect for at least three months. ?Stages 1 to 5, with or without kidney disease, indicate chronic kidney disease. Notes: Determination of stages one and two (with eGFR >59mL/min/1.73 m2) requires estimation of kidney damage for at least three months as defined by structural or functional abnormalities of the kidney, manifested by either:Pathological abnormalities or Markers of kidney damage (including abnormalities in the composition of the blood or urine or abnormalities in imaging tests). Lab Interpretation Abnormal (test code = 62263-3) [facility] [id number] 11:58:37 Test Item Value Reference Range Interpretation Comments MAGNESIUM (test code = 8564152860) 1.6 mg/dL 1.7-2.4 L Lab Interpretation (test code = Abnormal 05353-0) [facility] Metabolic Panel (NA, K, CL, CO2, GLUCOSE, BUN, CREATININE, CA)2022-05-15 11:58:37 Test Item Value Reference Range Interpretation Comments NA (test code = 138 mmol/L 135-145 3177451758) K (test code = 3.7 mmol/L 3.5-5.0 8996533576) CL (test code = 106 mmol/L 98-108 6268403576) CO2 TOTAL (test code = 22 mmol/L 23-31 L 6297683406) AGAP (test code = 2-16 5861152310) BUN (test code = 41 mg/dL 7-23 H 6405816961) GLUCOSE (test code = 181 mg/dL 70-110 H 3595778928) CREATININE (test code = 2.30 mg/dL 0.50-1.04 H 1081371364) CALCIUM (test code = 9.0 mg/dL 8.6-10.6 7629067615) eGFR (test code = mL/min/1.73m2 3063000160) ANNABEL (test code = ANNABEL) Association of Glomerular Filtration Rate (GFR) and Staging of Kidney Disease* + --+ --+ ------+| GFR (mL/min/1.73 m2) ?| With Kidney Damage ?| ?Without Kidney Damage+ --------+ --------+ +| ?>90 ?| ?Stage one ?| ? Normal ?+ ---+ ---+ -------+| ?60-89 ?| ?Stage two ?| ? Decreased GFR ? + --+ --+ ------+| ?30-59 ?| ?Stage three ?| ? Stage three ? + --+ --+ ------+| ?15-29 ?| ?Stage four ? | ? Stage four ?+ ---+ ---+ -------+| ?<15 (or dialysis) ? ?| ?Stage five ? | ? Stage five ?+ ---+ ---+ -------+ *Each stage assumes the associated GFR level has been in effect for at least three months. ?Stages 1 to 5, with or without kidney disease, indicate chronic kidney disease. Notes: Determination of stages one and two (with eGFR >59mL/min/1.73 m2) requires estimation of kidney damage for at least three months as defined by structural or functional abnormalities of the kidney, manifested by either:Pathological abnormalities or Markers of kidney damage (including abnormalities in the composition of the blood or urine or abnormalities in imaging tests). Lab Interpretation Abnormal (test code = 10559-3) [facility] [id number] 11:58:37 Test Item Value Reference Range Interpretation Comments MAGNESIUM (test code = 6998278688) 1.6 mg/dL 1.7-2.4 L Lab Interpretation (test code = Abnormal 81693-4) [facility] with [id number] 10:50:49 Test Item Value Reference Range Interpretation Comments WBC (test code = See_Comment [Automated 6690-2) message] The sy stem which generated this result transmitted reference range : 4.30 - 11.10 10*3/?L. The reference range was not used to interpret this result as normal/abnormal . RBC (test code = See_Comment L [Automated 789-8) message] The sy stem which generated this result transmitted reference range : 3.93 - 5.25 10*6/?L. The reference range was not used to interpret this result as normal/abnormal . HGB (test code = 5.9 g/dL 11.6-15.0 L 718-7) HCT (test code = 19.8 % 35.7-45.2 L 4544-3) MCV (test code = 81.5 fL 80.6-95.5 787-2) MCH (test code = 24.3 pg 25.9-32.8 L 785-6) MCHC (test code = 29.8 g/dL 31.6-35.1 L 786-4) RDW-SD (test code = 45.1 fL 39.0-49.9 14649-6) RDW-CV (test code = 15.3 % 12.0-15.5 788-0) PLT (test code = See_Comment [Automated 777-3) message] The sy stem which generated this result transmitted reference range : 166 - 358 10*3/ ?L. The reference r kristal was not used to interpret this result as normal/abnormal . MPV (test code = 11.4 fL 9.5-12.9 83123-5) NRBC/100 WBC (test See_Comment [Automat ed code = 6917135951) message] The system which generated this result transmitted reference range : 0.0 - 10.0 /100 WBCs. The refer ence range was not u sed to interpret th is result as normal/abnormal . NRBC x10^3 (test code See_Comment [Auto mated = 1839883902) message] The s ystem which generated this result transmitted reference range : 10*3/?L. The reference range was not used to interpret this result as normal/abnormal . GRAN MAT (NEUT) % 83.0 % (test code = 770-8) IMM GRAN % (test code 0.70 % = 6348875505) LYMPH % (test code = 11.6 % 736-9) MONO % (test code = 4.6 % 5905-5) EOS % (test code = 0.0 % 713-8) BASO % (test code = 0.1 % 706-2) GRAN MAT x10^3(ANC) 5.77 10*3/uL 1.88-7.09 (test code = 1531698333) IMM GRAN x10^3 (test 0.05 10*3/uL 0.00-0.06 code = 0442253236) LYMPH x10^3 (test code 0.81 10*3/uL 1.32-3.29 L = 731-0) MONO x10^3 (test code 0.32 10*3/uL 0.33-0.92 L = 742-7) EOS x10^3 (test code = 0.03-0.39 L 711-2) BASO x10^3 (test code 0.01-0.07 = 704-7) Lab Interpretation Abnormal (test code = 86332-8) [facility] with Vryshlwpyrzk4954-14-33 10:50:49 Test Item Value Reference Range Interpretation Comments WBC (test code = See_Comment [Automated 6690-2) message] The sy stem which generated this result transmitted reference range : 4.30 - 11.10 10*3/?L. The reference range was not used to interpret this result as normal/abnormal . RBC (test code = See_Comment L [Automated 789-8) message] The sy stem which generated this result transmitted reference range : 3.93 - 5.25 10*6/?L. The reference range was not used to interpret this result as normal/abnormal . HGB (test code = 5.9 g/dL 11.6-15.0 L 718-7) HCT (test code = 19.8 % 35.7-45.2 L 4544-3) MCV (test code = 81.5 fL 80.6-95.5 787-2) MCH (test code = 24.3 pg 25.9-32.8 L 785-6) MCHC (test code = 29.8 g/dL 31.6-35.1 L 786-4) RDW-SD (test code = 45.1 fL 39.0-49.9 78744-0) RDW-CV (test code = 15.3 % 12.0-15.5 788-0) PLT (test code = See_Comment [Automated 777-3) message] The sy stem which generated this result transmitted reference range : 166 - 358 10*3/ ?L. The reference r kristal was not used to interpret this result as normal/abnormal . MPV (test code = 11.4 fL 9.5-12.9 73357-0) NRBC/100 WBC (test See_Comment [Automat ed code = 3644233828) message] The system which generated this result transmitted reference range : 0.0 - 10.0 /100 WBCs. The refer ence range was not u sed to interpret th is result as normal/abnormal . NRBC x10^3 (test code See_Comment [Auto mated = 6517688569) message] The s ystem which generated this result transmitted reference range : 10*3/?L. The reference range was not used to interpret this result as normal/abnormal . GRAN MAT (NEUT) % 83.0 % (test code = 770-8) IMM GRAN % (test code 0.70 % = 9197666187) LYMPH % (test code = 11.6 % 736-9) MONO % (test code = 4.6 % 5905-5) EOS % (test code = 0.0 % 713-8) BASO % (test code = 0.1 % 706-2) GRAN MAT x10^3(ANC) 5.77 10*3/uL 1.88-7.09 (test code = 4401764726) IMM GRAN x10^3 (test 0.05 10*3/uL 0.00-0.06 code = 4019224873) LYMPH x10^3 (test code 0.81 10*3/uL 1.32-3.29 L = 731-0) MONO x10^3 (test code 0.32 10*3/uL 0.33-0.92 L = 742-7) EOS x10^3 (test code = 0.03-0.39 L 711-2) BASO x10^3 (test code 0.01-0.07 = 704-7) Lab Interpretation Abnormal (test code = 88190-3) [facility])(TOTAL CHOLESTEROL, TRIGLYCERIDES, HDL)2022-03-26 14:36:08 Test Item Value Reference Range Interpretation Comments CHOL (test code = 129 mg/dL 120-200 5378506607) HDL (test code = 47 mg/dL See_Comment L [Automated message] 6489084137) The system Slyce generated this result transmit beatriz reference range : >=50. The refer ence range was not u sed to interpret th is result as normal/abnormal . HDLC RATIO (test code = See_Comment [Au tomated message] 9930589114) The system Slyce generated this result transmit beatriz reference range : <=4.5. The refe rence range was not u sed to interpret th is result as normal/abnormal . TRIG (test code = 140 mg/dL 30-170 2176449340) LDL CHOL (test code = 54 mg/dL See_Comment [Auto mated message] 42785-4) The system Slyce generated this result transmit beatriz reference range : <=160. The refe rence range was not u sed to interpret th is result as normal/abnormal . VLDL (test code = 28 mg/dL 5-60 4139240172) Lab Interpretation (test Abnormal code = 26121-6) [facility] Metabolic Panel (NA, K, CL, CO2, GLUCOSE, BUN, CREATININE, CA)2022-03-26 11:16:52 Test Item Value Reference Range Interpretation Comments NA (test code = 139 mmol/L 135-145 3489010817) K (test code = 3.6 mmol/L 3.5-5 0850464835) CL (test code = 104 mmol/L 98-108 0449876967) CO2 TOTAL (test code = 24 mmol/L 23-31 3057706573) AGAP (test code = 2-16 6982670542) BUN (test code = 37 mg/dL 7-23 H 2946151182) GLUCOSE (test code = 103 mg/dL 70-110 0619151373) CREATININE (test code = 2.10 mg/dL 0.5-1.04 H 9339476169) CALCIUM (test code = 9.1 mg/dL 8.6-10.6 3634415575) eGFR (test code = mL/min/1.73m2 3357683337) ANNABEL (test code = ANNABEL) Association of Glomerular Filtration Rate (GFR) and Staging of Kidney Disease* + --+ --+ ------+| GFR (mL/min/1.73 m2) ?| With Kidney Damage ?| ?Without Kidney Damage+ --------+ --------+ +| ?>90 ?| ?Stage one ?| ? Normal ?+ ---+ ---+ -------+| ?60-89 ?| ?Stage two ?| ? Decreased GFR ? + --+ --+ ------+| ?30-59 ?| ?Stage three ?| ? Stage three ? + --+ --+ ------+| ?15-29 ?| ?Stage four ? | ? Stage four ?+ ---+ ---+ -------+| ?<15 (or dialysis) ? ?| ?Stage five ? | ? Stage five ?+ ---+ ---+ -------+ *Each stage assumes the associated GFR level has been in effect for at least three months. ?Stages 1 to 5, with or without kidney disease, indicate chronic kidney disease. Notes: Determination of stages one and two (with eGFR >59mL/min/1.73 m2) requires estimation of kidney damage for at least three months as defined by structural or functional abnormalities of the kidney, manifested by either:Pathological abnormalities or Markers of kidney damage (including abnormalities in the composition of the blood or urine or abnormalities in imaging tests). Lab Interpretation Abnormal (test code = 80692-9) [facility] [id number] 11:16:52 Test Item Value Reference Range Interpretation Comments MAGNESIUM (test code = 6749702550) 1.8 mg/dL 1.7-2.4 Lab Interpretation (test code = Normal 59262-4) [facility] [id number] 08:10:00 Test Item Value Reference Range Interpretation Comments TOTAL PROTEIN 7.2 gm/dL 6.0-8.3 (BEAKER) (test code = 770) ALBUMIN (BEAKER) 3.8 g/dL 3.5-5.0 (test code = 1145) ALKALINE PHOSPHATASE 66 U/L 40-150 (BEAKER) (test code = 346) BILIRUBIN TOTAL 0.4 mg/dL 0.2-1.2 (BEAKER) (test code = 377) SODIUM (BEAKER) (test 139 meq/L 136-145 code = 381) POTASSIUM (BEAKER) 3.4 meq/L 3.5-5.1 L (test code = 379) CHLORIDE (BEAKER) 113 meq/L 98-107 H (test code = 382) CO2 (BEAKER) (test 15 meq/L 22-29 L code = 355) BLOOD UREA NITROGEN 15 mg/dL 7-21 (BEAKER) (test code = 354) CREATININE (BEAKER) 1.13 mg/dL 0.57-1.25 (test code = 358) GLUCOSE RANDOM 125 mg/dL 70-105 H (BEAKER) (test code = 652) CALCIUM (BEAKER) 10.0 mg/dL 8.4-10.2 (test code = 697) AST (SGOT) (BEAKER) 18 U/L 5-34 (test code = 353) ALT (SGPT) (BEAKER) 17 U/L 6-55 (test code = 347) EGFR (BEAKER) (test 47 mL/min/1.73 ESTIMA BEATRIZ GFR IS code = 1092) sq m NOT ACCURATE CREATININE CLEARANCE IN PREDICTING GLOMERULAR FILTRATION RATE . ESTIMATED GFR I S NOT APPLICABLE FOR DIALYSIS PATIEN TS. BASIC METABOLIC [id number] 04:01:00 Test Item Value Reference Range Interpretation Comments SODIUM (BEAKER) 138 meq/L 136-145 (test code = 381) POTASSIUM (BEAKER) 3.6 meq/L 3.5-5.1 (test code = 379) CHLORIDE (BEAKER) 113 meq/L 98-107 H (test code = 382) CO2 (BEAKER) (test 17 meq/L 22-29 L code = 355) BLOOD UREA NITROGEN 17 mg/dL 7-21 (BEAKER) (test code = 354) CREATININE (BEAKER) 1.30 mg/dL 0.57-1.25 H (test code = 358) GLUCOSE RANDOM 117 mg/dL 70-105 H (BEAKER) (test code = 652) CALCIUM (BEAKER) 9.1 mg/dL 8.4-10.2 (test code = 697) EGFR (BEAKER) (test 40 mL/min/1.73 ESTIMA BEATRIZ GFR IS code = 1092) sq m NOT ACCURATE CREATININE CLEARANCE IN PREDICTING GLOMERULAR FILTRATION RATE . ESTIMATED GFR I S NOT APPLICABLE FOR DIALYSIS PATIEN TS. CBC W/PLT COUNT & AUTO [id number] 13:54:00 Test Item Value Reference Range Interpretation Comments WHITE BLOOD CELL COUNT (BEAKER) 9.9 K/ L 3.5-10.5 (test code = 775) RED BLOOD CELL COUNT (BEAKER) 4.10 M/ L 3.93-5.22 (test code = 761) HEMOGLOBIN (BEAKER) (test code = 13.1 GM/DL 11.2-15.7 410) HEMATOCRIT (BEAKER) (test code = 39.3 % 34.1-44.9 411) MEAN CORPUSCULAR VOLUME (BEAKER) 95.9 fL 79.4-94.8 H (test code = 753) MEAN CORPUSCULAR HEMOGLOBIN 32.0 pg 25.6-32.2 (BEAKER) (test code = 751) MEAN CORPUSCULAR HEMOGLOBIN CONC 33.3 GM/DL 32.2-35.5 (BEAKER) (test code = 752) RED CELL DISTRIBUTION WIDTH 13.6 % 11.7-14.4 (BEAKER) (test code = 412) PLATELET COUNT (BEAKER) (test 197 K/CU MM 150-450 code = 756) MEAN PLATELET VOLUME (BEAKER) 11.6 fL 9.4-12.3 (test code = 754) NUCLEATED RED BLOOD CELLS 0 /100 WBC 0-0 (BEAKER) (test code = 413) NEUTROPHILS RELATIVE PERCENT 64 % (BEAKER) (test code = 429) LYMPHOCYTES RELATIVE PERCENT 22 % (BEAKER) (test code = 430) MONOCYTES RELATIVE PERCENT 10 % (BEAKER) (test code = 431) EOSINOPHILS RELATIVE PERCENT 3 % (BEAKER) (test code = 432) BASOPHILS RELATIVE PERCENT 0 % (BEAKER) (test code = 437) NEUTROPHILS ABSOLUTE COUNT 6.35 K/ L 1.56-6.13 H (BEAKER) (test code = 670) LYMPHOCYTES ABSOLUTE COUNT 2.15 K/ L 1.18-3.74 (BEAKER) (test code = 414) MONOCYTES ABSOLUTE COUNT (BEAKER) 1.03 K/ L 0.24-0.36 H (test code = 415) EOSINOPHILS ABSOLUTE COUNT 0.34 K/ L 0.04-0.36 (BEAKER) (test code = 416) BASOPHILS ABSOLUTE COUNT (BEAKER) 0.03 K/ L 0.01-0.08 (test code = 417) IMMATURE GRANULOCYTES-RELATIVE 0 % 0-1 PERCENT (BEAKER) (test code = 2801) BASIC METABOLIC [id number] 05:57:00 Test Item Value Reference Range Interpretation Comments SODIUM (BEAKER) 138 meq/L 136-145 (test code = 381) POTASSIUM (BEAKER) 3.5 meq/L 3.5-5.1 (test code = 379) CHLORIDE (BEAKER) 112 meq/L 98-107 H (test code = 382) CO2 (BEAKER) (test 18 meq/L 22-29 L code = 355) BLOOD UREA NITROGEN 15 mg/dL 7-21 (BEAKER) (test code = 354) CREATININE (BEAKER) 0.99 mg/dL 0.57-1.25 (test code = 358) GLUCOSE RANDOM 121 mg/dL 70-105 H (BEAKER) (test code = 652) CALCIUM (BEAKER) 8.7 mg/dL 8.4-10.2 (test code = 697) EGFR (BEAKER) (test 55 mL/min/1.73 ESTIMA BEATRIZ GFR IS code = 1092) sq m NOT ACCURATE CREATININE CLEARANCE IN PREDICTING GLOMERULAR FILTRATION RATE . ESTIMATED GFR I S NOT APPLICABLE FOR DIALYSIS PATIEN TS. TSH/FREE T4 IF [id number] 13:01:00 Test Item Value Reference Range Interpretation Comments THYROID STIMULATING HORMONE 1.46 uIU/mL 0.35-4.94 (BEAKER) (test code = 772) BASIC METABOLIC [id number] 05:21:00 Test Item Value Reference Range Interpretation Comments SODIUM (BEAKER) 139 meq/L 136-145 (test code = 381) POTASSIUM (BEAKER) 3.7 meq/L 3.5-5.1 Specimen slightly (test code = 379) hemolyzed CHLORIDE (BEAKER) 112 meq/L 98-107 H (test code = 382) CO2 (BEAKER) (test 19 meq/L 22-29 L code = 355) BLOOD UREA NITROGEN 23 mg/dL 7-21 H (BEAKER) (test code = 354) CREATININE (BEAKER) 1.00 mg/dL 0.57-1.25 Specimen slightly (test code = 358) hemolyzed GLUCOSE RANDOM 95 mg/dL 70-105 (BEAKER) (test code = 652) CALCIUM (BEAKER) 9.2 mg/dL 8.4-10.2 (test code = 697) EGFR (BEAKER) (test mL/min/1.73 INSUFFIC IENT CLINICAL code = 1092) sq m DATA TO CALCULA TE ESTIMATED GFR. CBC W/PLT COUNT & AUTO [id number] 05:08:00 Test Item Value Reference Range Interpretation Comments WHITE BLOOD CELL COUNT (BEAKER) 12.0 K/ L 3.5-10.5 H (test code = 775) RED BLOOD CELL COUNT (BEAKER) 4.14 M/ L 3.93-5.22 (test code = 761) HEMOGLOBIN (BEAKER) (test code = 13.3 GM/DL 11.2-15.7 410) HEMATOCRIT (BEAKER) (test code = 40.3 % 34.1-44.9 411) MEAN CORPUSCULAR VOLUME (BEAKER) 97.3 fL 79.4-94.8 H (test code = 753) MEAN CORPUSCULAR HEMOGLOBIN 32.1 pg 25.6-32.2 (BEAKER) (test code = 751) MEAN CORPUSCULAR HEMOGLOBIN CONC 33.0 GM/DL 32.2-35.5 (BEAKER) (test code = 752) RED CELL DISTRIBUTION WIDTH 13.6 % 11.7-14.4 (BEAKER) (test code = 412) PLATELET COUNT (BEAKER) (test 207 K/CU MM 150-450 code = 756) MEAN PLATELET VOLUME (BEAKER) 11.0 fL 9.4-12.3 (test code = 754) NUCLEATED RED BLOOD CELLS 0 /100 WBC 0-0 (BEAKER) (test code = 413) NEUTROPHILS RELATIVE PERCENT 67 % (BEAKER) (test code = 429) LYMPHOCYTES RELATIVE PERCENT 21 % (BEAKER) (test code = 430) MONOCYTES RELATIVE PERCENT 7 % (BEAKER) (test code = 431) EOSINOPHILS RELATIVE PERCENT 5 % (BEAKER) (test code = 432) BASOPHILS RELATIVE PERCENT 0 % (BEAKER) (test code = 437) NEUTROPHILS ABSOLUTE COUNT 8.02 K/ L 1.56-6.13 H (BEAKER) (test code = 670) LYMPHOCYTES ABSOLUTE COUNT 2.46 K/ L 1.18-3.74 (BEAKER) (test code = 414) MONOCYTES ABSOLUTE COUNT (BEAKER) 0.78 K/ L 0.24-0.36 H (test code = 415) EOSINOPHILS ABSOLUTE COUNT 0.63 K/ L 0.04-0.36 H (BEAKER) (test code = 416) BASOPHILS ABSOLUTE COUNT (BEAKER) 0.04 K/ L 0.01-0.08 (test code = 417) IMMATURE GRANULOCYTES-RELATIVE 0 % 0-1 PERCENT (BEAKER) (test code = 2801) SALICYLATE [id number] 15:46:00 Test Item Value Reference Range Interpretation Comments SALICYLATE LEVEL (BEAKER) (test code < mg/dL 20.0-30.0 L = 764) ACETAMINOPHEN [id number] 15:45:00 Test Item Value Reference Range Interpretation Comments ACETAMINOPHEN LEVEL (BEAKER) (test < ug/mL 10.0-30.0 L code = 344) URINALYSIS W/ [id number] 13:26:00 Test Item Value Reference Range Interpretation Comments COLOR (BEAKER) (test code = Light Yellow 470) CLARITY (BEAKER) (test code = Clear 469) SPECIFIC GRAVITY UA (BEAKER) 1.005 1.001-1.035 (test code = 468) PH UA (BEAKER) (test code = 7.0 5.0-8.0 467) PROTEIN UA (BEAKER) (test code Negative Negative = 464) GLUCOSE UA (BEAKER) (test code Negative Negative = 365) KETONES UA (BEAKER) (test code Negative Negative = 371) BILIRUBIN UA (BEAKER) (test Negative Negative code = 462) BLOOD UA (BEAKER) (test code = Negative Negative 461) NITRITE UA (BEAKER) (test code Positive Negative A = 465) LEUKOCYTE ESTERASE UA (BEAKER) Small Negative A (test code = 466) UROBILINOGEN UA (BEAKER) (test 0.2 mg/dL 0.2-1.0 code = 463) RBC UA (BEAKER) (test code = 0 /HPF 519) WBC UA (BEAKER) (test code = 10 /HPF 520) BACTERIA (BEAKER) (test code = Rare 517) MUCUS (BEAKER) (test code = Rare 1574) SQUAMOUS EPITHELIAL (BEAKER) < /HPF (test code = 516) SOURCE(BEAKER) (test code = Urine, Voided 9698) RAPID DRUG SCREEN, [id number] 12:14:00 Test Item Value Reference Range Interpretation Comments BARBITURATE URINE (BEAKER) (test Negative Negative code = 725) BENZODIAZEPINE SCREEN URINE (BEAKER) Positive Negative A (test code = 726) COCAINE (METAB.) SCREEN (BEAKER) Negative Negative (test code = 1164) METHADONE SCREEN (BEAKER) (test code Negative Negative = 1436) OPIATE SCREEN URINE (BEAKER) (test Negative Negative code = 734) CANNABINOID SCREEN URINE (BEAKER) Negative Negative (test code = 727) AMPH/METHAMPH SCREEN (BEAKER) (test Negative Negative code = 1438) PHENCYCLIDINE SCREEN URINE (BEAKER) Negative Negative (test code = 608) OXYCODONE SCREEN URINE (BEAKER) Negative Negative (test code = 2761) DRUG CUTOFF CONC.Cocaine 300 ng/mL Cannabinoid 50 ng/mL Benzodiazepine 200 ng/mLBarbiturate 200 ng/mLPhencyclidine 25 ng/mLOpiate 300 ng/mLMethadone 300 ng/mLAmphetamine/ 1000 ng/mL MethamphetamineOxycodone 300 ng/mLThis assay provides an unconfirmed qualitative test result for the clinical management of patients in emergency situations. Chain of custody not maintained. Some [id number]-[id number]-ynauchv medications, as well as adulterants, may cause inaccurate results. Clinical correlation should be applied. A more comprehensive drug screen or confirmation of a detected drug may be performed upon request.DIGOXIN [id number] 12:07:00 Test Item Value Reference Range Interpretation Comments DIGOXIN LEVEL (BEAKER) (test code = < ng/mL 0.8-2.0 L 669) CREATINE KINASE (CK), TOTAL AND [id number] 12:05:00 Test Item Value Reference Range Interpretation Comments CREATINE KINASE TOTAL (BEAKER) 103 U/L 29-200 (test code = 380) CREATINE KINASE-MB (BEAKER) (test 2.0 ng/mL 0.0-6.6 code = 750) CREATINE KINASE-MB INDEX (BEAKER) 1.9 % (test code = 395) Effective 04/27/2014: CK-MB Reference Range ChangeNew: 0.0-6.6 Previous: 0.0-4.9CK-MB Reference Range:<6.7 Normal6.7-10.0 Borderline>10.0 Abnormal TROPONIN [id number] 12:05:00 Test Item Value Reference Range Interpretation Comments TROPONIN I (BEAKER) (test code = 397) < ng/mL 0.00-0.03 Effective 04/27/2014: Reference Range ChangeNew: 0.00-0.03 Previous 0.00- 0.15Troponin I (TnI) levelsmust be interpreted in the context of the presenting symptoms and the clinical findings. Elevated TnI levels indicate myocardial damage, but are not specific for ischemic heart disease. Elevated TnI levels are seen in patients with other cardiac conditions (including myocarditis and congestive heart failure), and slight TnI elevations occur in patients with other conditions, including sepsis, renal failure, acidosis, acute neurological disease, and persistent tachyarrhythmia.BASIC METABOLIC [id number] 12:04:00 Test Item Value Reference Range Interpretation Comments SODIUM (BEAKER) 140 meq/L 136-145 (test code = 381) POTASSIUM (BEAKER) 4.2 meq/L 3.5-5.1 (test code = 379) CHLORIDE (BEAKER) 106 meq/L 98-107 (test code = 382) CO2 (BEAKER) (test 25 meq/L 22-29 code = 355) BLOOD UREA NITROGEN 33 mg/dL 7-21 H (BEAKER) (test code = 354) CREATININE (BEAKER) 1.56 mg/dL 0.57-1.25 H (test code = 358) GLUCOSE RANDOM 97 mg/dL 70-105 (BEAKER) (test code = 652) CALCIUM (BEAKER) 10.2 mg/dL 8.4-10.2 (test code = 697) EGFR (BEAKER) (test mL/min/1.73 INSUFFIC IENT CLINICAL code = 1092) sq m DATA TO CALCULA TE ESTIMATED GFR. B-TYPE NATRIURETIC FACTOR (BNP)2017-01-15 12:02:00 Test Item Value Reference Range Interpretation Comments B-TYPE NATRIURETIC PEPTIDE (BEAKER) 86 pg/mL 0-100 (test code = 700) [id number] 11:58:00 Test Item Value Reference Range Interpretation Comments PHOSPHORUS (BEAKER) (test code = 4.2 mg/dL 2.3-4.7 604) [id number] 11:58:00 Test Item Value Reference Range Interpretation Comments MAGNESIUM (BEAKER) (test code = 1.9 mg/dL 1.6-2.6 627) HEPATIC FUNCTION [id number] 11:58:00 Test Item Value Reference Range Interpretation Comments TOTAL PROTEIN (BEAKER) (test code = 7.5 gm/dL 6.0-8.3 770) ALBUMIN (BEAKER) (test code = 1145) 4.1 g/dL 3.5-5.0 BILIRUBIN TOTAL (BEAKER) (test code 0.3 mg/dL 0.2-1.2 = 377) BILIRUBIN DIRECT (BEAKER) (test 0.1 mg/dL 0.1-0.5 code = 706) ALKALINE PHOSPHATASE (BEAKER) (test 86 U/L 40-150 code = 346) AST (SGOT) (BEAKER) (test code = 20 U/L 5-34 353) ALT (SGPT) (BEAKER) (test code = 20 U/L 6-55 347) [id number] 11:55:00 Test Item Value Reference Range Interpretation Comments ETHANOL (BEAKER) (test code = 400) < mg/dL <=10 CBC W/PLT COUNT & AUTO [id number] 11:51:00 Test Item Value Reference Range Interpretation Comments WHITE BLOOD CELL COUNT (BEAKER) 13.7 K/ L 3.5-10.5 H (test code = 775) RED BLOOD CELL COUNT (BEAKER) 4.80 M/ L 3.93-5.22 (test code = 761) HEMOGLOBIN (BEAKER) (test code = 15.2 GM/DL 11.2-15.7 410) HEMATOCRIT (BEAKER) (test code = 45.9 % 34.1-44.9 H 411) MEAN CORPUSCULAR VOLUME (BEAKER) 95.6 fL 79.4-94.8 H (test code = 753) MEAN CORPUSCULAR HEMOGLOBIN 31.7 pg 25.6-32.2 (BEAKER) (test code = 751) MEAN CORPUSCULAR HEMOGLOBIN CONC 33.1 GM/DL 32.2-35.5 (BEAKER) (test code = 752) RED CELL DISTRIBUTION WIDTH 13.4 % 11.7-14.4 (BEAKER) (test code = 412) PLATELET COUNT (BEAKER) (test 218 K/CU MM 150-450 code = 756) MEAN PLATELET VOLUME (BEAKER) 10.6 fL 9.4-12.3 (test code = 754) NUCLEATED RED BLOOD CELLS 0 /100 WBC 0-0 (BEAKER) (test code = 413) NEUTROPHILS RELATIVE PERCENT 63 % (BEAKER) (test code = 429) LYMPHOCYTES RELATIVE PERCENT 26 % (BEAKER) (test code = 430) MONOCYTES RELATIVE PERCENT 6 % (BEAKER) (test code = 431) EOSINOPHILS RELATIVE PERCENT 5 % (BEAKER) (test code = 432) BASOPHILS RELATIVE PERCENT 0 % (BEAKER) (test code = 437) NEUTROPHILS ABSOLUTE COUNT 8.59 K/ L 1.56-6.13 H (BEAKER) (test code = 670) LYMPHOCYTES ABSOLUTE COUNT 3.51 K/ L 1.18-3.74 (BEAKER) (test code = 414) MONOCYTES ABSOLUTE COUNT (BEAKER) 0.80 K/ L 0.24-0.36 H (test code = 415) EOSINOPHILS ABSOLUTE COUNT 0.71 K/ L 0.04-0.36 H (BEAKER) (test code = 416) BASOPHILS ABSOLUTE COUNT (BEAKER) 0.06 K/ L 0.01-0.08 (test code = 417) IMMATURE GRANULOCYTES-RELATIVE 0 % 0-1 PERCENT (BEAKER) (test code = 2801) [id number] 11:50:00 Test Item Value Reference Range Interpretation Comments AMMONIA (BEAKER) (test code = 348) 29 mol/L 18-72"
[2022-12-07] MEDS ORDERED: ALBUTEROL IH PRN (12:06)
[2022-12-07] MEDS ORDERED: ALBUTEROL 2.5 MG/3 ML NEB SOL NEB PRN (13:56)
[2022-12-07] MEDS: [UNRECOGNIZED DRUG - OTHER] OPTH SCH ×2 (15:37→19:17)
[2022-12-07] MEDS: SALMETEROL IH SCH ×2 (15:37→19:18)
[2022-12-07] MEDS: DORZOLAMIDE OPTH SCH ×2 (15:37→19:17)
[2022-12-07] MEDS: FLUTICASONE PROPIONATE IH SCH ×2 (15:37→19:18)
[2022-12-07] MEDS: FUROSEMIDE 40 MG TABLET PO SCH (16:37)
[2022-12-07] MEDS: AMLODIPINE 5 MG TAB PO SCH (19:15)
[2022-12-07] MEDS: MIRTAZAPINE 15 MG TAB PO SCH (19:15)
[2022-12-07] MEDS: carvediloL 6.25 MG TAB PO SCH (19:16)
[2022-12-07] MEDS: ATORVASTATIN 40 MG TAB PO SCH (19:16)
[2022-12-07] MEDS: APIXABAN 2.5 MG TABLET PO SCH (19:16)
[2022-12-07] MEDS: LOSARTAN POTASSIUM 50 MG TABLET PO SCH (19:17)
[2022-12-07] MEDS: GABAPENTIN 300 MG CAP PO SCH (19:17)
[2022-12-07] MEDS ORDERED: DORZOLAMIDE OPTH SCH (20:00)
[2022-12-07] MEDS ORDERED: [UNRECOGNIZED DRUG - OTHER] OPTH SCH (20:00)
[2022-12-07] MEDS ORDERED: LOSARTAN POTASSIUM 50 MG TABLET PO SCH (20:00)
--- NOTE | 2022-12-08 03:17 | HP ---
Date of Admission: 12/07/2022 Time Of Service: 12 noon. Chief Complaint: "I am very weak and I want to get stronger. I have been falling a lot." History Of Present Illness: Ms. Portillo is an 82-year-old right-handed patient with multiple medical p roblems including hypertension; chronic atrial fibrillation, was not on anticoagulation; COPD, who ac tually came in to the hospital at [facility] with GI bleed while on warfarin, so she was on anticoagulation and warfarin was supratherapeutic in terms of the INR being very elevated. She was seen by the MEGHAN schmidt, discontinuation of the warfarin was done, that she actually had on the prior to her comi ng in on the lost vision, acute loss of vision was noted in the left eye. A retina specialist e valuated the patient to determine the possibility of a central retinal artery occlusion and was found to have increased intra-ocular pressure of greater than 40. 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 She had dorzolamide and brimonidine. 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 Given her age and the findings of l oss of vision with an elevated erythrocyte sedimentation rate, the patient was felt to have giant mikel l arteritis and that should have a temporal artery biopsy to rule that out. She was started on IV me thylprednisolone and took high dose for 3 days, and Vascular Surgery was consulted for temporal arter y biopsy. In addition, she was started on heparin drip for stroke risk reduction. As the patient wa s worked up, incidentally was found to have a 5.9 cm infrarenal abdominal aortic aneurysm on 11/15/19, and CT scan of her head and neck revealed focal dissection of the proximal aortic arch of the ant erior wall. This was evaluated by CT Surgery, who deferred surgery management given the patient's ag e, mortality risk, and other comorbid conditions. On 11/30, the patient declined a temporal artery b iopsy while in the operating room, reporting that she got nervous about the surgery. She did also re fuse to have an attempted procedure to address the infrarenal aortic aneurysm. It was also felt that she had a low suspicion for giant cell arteritis. A repeat study to look at the aortic aneurysm edgar sured at 5.5 cm in the posterior and craniocaudal length of 7 mm. In addition, there was a right britt n renal artery severe narrowing found with right renal atrophy. The patient was evaluated by all ser vices and felt stable to be discharged with attempted endovascular repair in 2 weeks. However, after discharge home, she was unable to stay upright and fell multiple times due to weakness in the lower extremities. On 12/06/2022, she was found at home by a home health who was attempting to rehabilitat ion and was unable to get up without maximum assistance. She was felt now to be a more appropriate c andidate for acute inpatient rehabilitation prior to going back home and awaiting surgery. She does live alone and was previously independent, could do all of her own activities of daily living about 6 weeks ago and that she has now lost vision with weakness, inpatient rehabilitation is justified, and if she were to be at a lower level of facility such as senior living, she would likely worsen. Past Medical History: Anxiety, chronic obstructive pulmonary disease, cardiac radiofrequency ablatio n, dyslipidemia, hypertension, had multiple drug overdoses in January 2017, has tobacco consumption. Surgical History: Colonoscopy, colostomy closure, sigmoidectomy, left leg stent placed in 11/2017. Allergies: CODEINE, IODINE, AND LATEX. Medications: Albuterol nebulizer 2.5 mg every 4 hours for wheezing, Norvasc 5 mg twice daily, Eliqui s 2.5 mg twice daily, Lipitor 40 mg at bedtime, Coreg 6.25 mg twice daily, vitamin D 2000 units daily , ferrous sulfate 325 mg daily, Lasix 40 mg twice daily, gabapentin 300 mg twice daily, lidocaine pat ch to apply 2 patches to the knees daily, Remeron 7.5 mg at bedtime, potassium 10 mEq daily. Family History: Noncontributory. Social History: No current alcohol, tobacco, or IV drug use, used in the past. Laboratory Studies: White blood cell count 10, hemoglobin 9.8, creatinine 2.2. X-ray imaging is noted. Review of Systems: Ms. Portillo reports weakness in the lower extremities, difficulty with her balance, gait, and coordinat ion. She denies any fevers or chills. She has mild myalgias, arthralgias. No rash. No headache. No weight change. No active psychiatric issues. No genitourinary issues. No other positives on the systems review. Physical Examination: Vital Signs: Blood pressure 167/72, pulse of 76, respiratory rate 14, temperature 97.7, ox saturatio n 95%. General: Ms. Portillo is resting in bed. She has no significant distress. HEENT: She appears normocephalic despite her multiple falls. She is atraumatic. Sclerae anicteric. Oropharynx moist. Neck: Supple. Chest: Clear. Abdomen: Soft. Extremities: Show no significant edema or cyanosis. NEUROLOGIC: Diffuse weakness of her lower extremities, some incoordination of her lower extremities. Current Level Of Functioning: Prior to 6 weeks ago, she was fully independent. Currently for eating , standby assistance. Toileting, supervision. Showering, supervision. Contact guard, upper and low er body dressing. Contact guard, roll left and right. Contact guard assistance, she ambulated 10 fe et with moderate assistance to the bed with moderate assistance. Rehabilitation And Medical Assessment And Plan: Ms. Portillo is admitted to the rehabilitation unit wit h impairment category 20, miscellaneous. Her impairment Group Code is 16, debility, noncardiac, nonp ulmonary. Her etiologic diagnosis is renal failure. Active comorbidities: Anxiety, chronic obstruc tive pulmonary disease, weakness, hypertension. She also has acute exacerbation of respiratory failu re with wheezing, productive cough, in addition to history of stroke and myocardial infarction. Plan: 1.She will have physical and occupational along with speech therapy 3-1/2 hours, 5 of 7 days. 2.We will continue Norvasc 5 mg twice daily along with Lasix 40 mg twice daily and Cozaar 100 mg twi ce daily for blood pressure management, potassium 10 mEq daily for hypokalemia, gabapentin 300 mg twi ce daily for neuropathic pain, ferrous sulfate 325 mg daily for anemia along with the vitamin D 2000 units daily, Lipitor 40 mg at bedtime for dyslipidemia, Eliquis 2.5 mg twice daily for DVT prophylaxi s, and albuterol nebulizer for her wheezing. Impact Of Comorbids: She has a prolonged complicated history as noted with atrial fibrillation and G I bleed in addition to retinal artery occlusion and poor vision and abdominal aortic aneurysm. She i s at risk of worsening bleeding and the complications associated with aneurysm such as aneurysm ruptu re and stroke. She is being managed for her blood pressures and risk of stroke with antiplatelet daisy atment and with Eliquis and will continue. Rehab Specific Plan: 1.Ms. Portillo will have 3-1/2 hours 5 of 7 days of physical, occupational, and speech therapy to impro ve her ability to dress upper and lower body, to transfer, to do toileting and showering, and to mobi lize over 250 feet, which she was independent previously and up and down 10 steps. In addition, her cognitive functioning will expect to be at modified independence level for judgment, memory, thinking and processing. 2.She has a good understanding of the process by which she is admitted to the inpatient rehabilitati on unit and is willing and ready to participate. She has a potential to make good improvement and wi ll require physical, occupational, and speech therapy. In addition, services from the Pulmonary Serv ice, Cardiac Service, Nutrition Service, and Renal Service will be contacted if need be. Given her c omplex medical condition and risk of further complications, rehabilitation cannot be safely or effect ively performed at a lower level of facility such as senior living. Barriers To Discharge: As noted, multiple aneurysms and prior arterial occlusions with vision loss. She is at risk of additional occlusions and will be maintained on antiplatelet therapy and along wit umesh Tripp. Estimated Length Of Stay: About 10 days. Disposition: Home. Prognosis: Good. Goals: 1.Become independent upper and lower body dressing. 2.Independent with transfers from bed to chair to toilet to shower and to perform toileting and show ering independently. 3.Ambulate 250 feet independent with a rolling walker. 4.Up and down 10 steps independently. 5.Perform cognitive function independently. The goals were reviewed with the patient and she is in agreement. I acknowledge I have personally performed a full physical examination on Ms. Portillo no later than 24 h ours after her admission to the inpatient rehabilitation facility and determined that she is able to tolerate the above course of treatment at an intensive level for a reasonable period of time. A deta iled individualized plan of care for her will be completed by hospital day 4 based on her preadmissio n screen, history and physical, and therapy evaluations. OBI/MOSES Voice ID: [id number]
[2022-12-08 06:17] LABS: Absolute Lymphocytes (CBC) 2.1 K/uL (0.7-4.9); Hematocrit 27.4 % (36.0-45.0); Lymphocytes % 18.1 % (15.3-44.8); MCV 92.6 fL (80-100); MPV 9.3 fL (7.6-11.3); RBC Red Blood Cell Count 2.96 M/uL (3.86-4.86)
[2022-12-08 06:38] LABS: Albumin 2.5 g/dL (3.4-5.0); Magnesium 1.9 mg/dL (1.6-2.4); Potassium 3.7 mEq/L (3.5-5.1); Prealbumin 30.5 mg/dL (20-40)
[2022-12-08] MEDS: LIDOCAINE 4% PATCH TOP SCH (06:45)
[2022-12-08] MEDS: AMLODIPINE 5 MG TAB PO SCH ×2 (06:46→19:29)
[2022-12-08] MEDS: LOSARTAN POTASSIUM 50 MG TABLET PO SCH ×2 (06:47→19:28)
[2022-12-08] MEDS: DORZOLAMIDE OPTH SCH ×3 (07:19→19:30)
[2022-12-08] MEDS: [UNRECOGNIZED DRUG - OTHER] OPTH SCH ×3 (07:19→19:31)
[2022-12-08] MEDS: ALBUTEROL 2.5 MG/3 ML NEB SOL NEB SCH ×2 (08:00→19:00)
[2022-12-08] MEDS: FERROUS SULFATE 325 MG TAB PO SCH (08:09)
[2022-12-08] MEDS: GABAPENTIN 300 MG CAP PO SCH ×2 (08:09→19:30)
[2022-12-08] MEDS: VITAMIN D 1000 UNIT TAB PO SCH (08:09)
[2022-12-08] MEDS: APIXABAN 2.5 MG TABLET PO SCH ×2 (08:09→19:30)
[2022-12-08] MEDS: POTASSIUM CL SA 10 MEQ TAB PO SCH (08:10)
[2022-12-08 08:24] LABS: Urine Bacteria >50 /HPF (<20); Urine Bilirubin NEGATIVE (Negative); Urine Blood Negative (Negative); Urine Clarity Extremely Turbid (Clear); Urine Color Light-Yellow (Yellow); Urine Glucose NEGATIVE (Negative); Urine Protein 1+ (Negative); Urine RBC <5 /HPF (None Seen); Urine Urobilinogen Normal (Normal)
[2022-12-08] MEDS: FE SULF/FA/VIT B COMP & C TAB PO SCH (08:58)
[2022-12-08] MEDS: CRANBERRY FRUIT EXTRACT 200 MG CAP PO SCH ×2 (08:58→19:29)
[2022-12-08] MEDS: carvediloL 6.25 MG TAB PO SCH ×2 (08:59→19:30)
[2022-12-08] MEDS: FUROSEMIDE 40 MG TABLET PO SCH ×2 (08:59→17:03)
[2022-12-08 09:42] LABS: Platelet Estimate ADEQ; White Blood Cell Scan OK (OK)
[2022-12-08 09:43] LABS: Blood Morphology Comment NOT SEEN (NOT SEEN)
[2022-12-08] MEDS: SALMETEROL IH SCH ×2 (11:07→19:28)
[2022-12-08] MEDS: FLUTICASONE PROPIONATE IH SCH ×2 (11:07→19:28)
[2022-12-08] MEDS: ONDANSETRON 4 MG (ODT) TAB PO PRN ×2 (12:01→20:18)
[2022-12-08] MEDS: NICOTINE 14 MG/PAT TD SCH (14:27)
[2022-12-08] MEDS: ACETAMINOPHEN 500 MG TAB PO PRN (17:44)
[2022-12-08] MEDS: MIRTAZAPINE 15 MG TAB PO SCH (19:29)
[2022-12-08] MEDS: ATORVASTATIN 40 MG TAB PO SCH (19:30)
[2022-12-08] MEDS ORDERED: MELATONIN 3 MG TABLET PO PRN (21:00)
[2022-12-09] MEDS: ALBUTEROL 2.5 MG/3 ML NEB SOL NEB SCH ×2 (07:30→19:25)
[2022-12-09] MEDS: LIDOCAINE 4% PATCH TOP SCH ×2 (08:00→08:07)
[2022-12-09] MEDS: FLUTICASONE PROPIONATE IH SCH ×2 (08:01→20:30)
[2022-12-09] MEDS: SALMETEROL IH SCH ×2 (08:01→20:30)
[2022-12-09] MEDS: DORZOLAMIDE OPTH SCH ×3 (08:02→20:33)
[2022-12-09] MEDS: MAGNESIUM OXIDE 400 MG TAB PO SCH (08:03)
[2022-12-09] MEDS: NICOTINE 14 MG/PAT TD SCH (08:03)
[2022-12-09] MEDS: [UNRECOGNIZED DRUG - OTHER] OPTH SCH ×3 (08:03→20:28)
[2022-12-09] MEDS: GABAPENTIN 300 MG CAP PO SCH ×2 (08:03→20:30)
[2022-12-09] MEDS: VITAMIN D 1000 UNIT TAB PO SCH (08:04)
[2022-12-09] MEDS: FERROUS SULFATE 325 MG TAB PO SCH (08:04)
[2022-12-09] MEDS: FE SULF/FA/VIT B COMP & C TAB PO SCH (08:04)
[2022-12-09] MEDS: CRANBERRY FRUIT EXTRACT 200 MG CAP PO SCH ×2 (08:04→20:30)
[2022-12-09] MEDS: APIXABAN 2.5 MG TABLET PO SCH ×2 (08:05→20:31)
[2022-12-09] MEDS: POTASSIUM CL SA 10 MEQ TAB PO SCH (08:05)
[2022-12-09] MEDS: AMLODIPINE 5 MG TAB PO SCH ×2 (08:06→20:31)
[2022-12-09] MEDS: FUROSEMIDE 40 MG TABLET PO SCH ×2 (08:06→16:48)
[2022-12-09] MEDS: carvediloL 6.25 MG TAB PO SCH ×2 (08:08→20:30)
[2022-12-09 08:12] LABS: Hematocrit 28.3 % (36.0-45.0); Lymphocytes % 12.4 % (15.3-44.8); MCV 93.5 fL (80-100); MPV 9.1 fL (7.6-11.3); RBC Red Blood Cell Count 3.03 M/uL (3.86-4.86)
[2022-12-09 08:22] LABS: Potassium 3.8 mEq/L (3.5-5.1)
[2022-12-09] MEDS: LOSARTAN POTASSIUM 50 MG TABLET PO SCH ×2 (09:18→20:31)
[2022-12-09] MEDS: ONDANSETRON 4 MG (ODT) TAB PO PRN (09:59)
[2022-12-09] MEDS: CEFDINIR 300 MG CAP PO SCH (13:19)
[2022-12-09] MEDS: PANTOPRAZOLE 40MG TABLET PO SCH (18:23)
[2022-12-09] MEDS: MIRTAZAPINE 15 MG TAB PO SCH (20:31)
[2022-12-09] MEDS: ATORVASTATIN 40 MG TAB PO SCH (20:31)
[2022-12-09] MEDS: ACETAMINOPHEN 500 MG TAB PO PRN (21:16)
[2022-12-10] MEDS: PANTOPRAZOLE 40MG TABLET PO SCH (07:23)
[2022-12-10] MEDS: [UNRECOGNIZED DRUG - OTHER] OPTH SCH ×2 (07:24→13:30)
[2022-12-10] MEDS: SALMETEROL IH SCH (07:24)
[2022-12-10] MEDS: FLUTICASONE PROPIONATE IH SCH (07:24)
[2022-12-10] MEDS: VITAMIN D 1000 UNIT TAB PO SCH (07:25)
[2022-12-10] MEDS: CEFDINIR 300 MG CAP PO SCH (07:25)
[2022-12-10] MEDS: DORZOLAMIDE OPTH SCH ×2 (07:25→13:30)
[2022-12-10] MEDS: MAGNESIUM OXIDE 400 MG TAB PO SCH (07:26)
[2022-12-10] MEDS: FERROUS SULFATE 325 MG TAB PO SCH (07:26)
[2022-12-10] MEDS: GABAPENTIN 300 MG CAP PO SCH (07:26)
[2022-12-10] MEDS: APIXABAN 2.5 MG TABLET PO SCH (07:26)
[2022-12-10] MEDS: FE SULF/FA/VIT B COMP & C TAB PO SCH (07:26)
[2022-12-10] MEDS: POTASSIUM CL SA 10 MEQ TAB PO SCH (07:26)
[2022-12-10] MEDS: CRANBERRY FRUIT EXTRACT 200 MG CAP PO SCH (07:26)
[2022-12-10 07:35] VITALS: TEMP 97.6
[2022-12-10] MEDS: FUROSEMIDE 40 MG TABLET PO SCH (07:40)
[2022-12-10] MEDS: carvediloL 6.25 MG TAB PO SCH (07:40)
[2022-12-10] MEDS: AMLODIPINE 5 MG TAB PO SCH (07:40)
[2022-12-10] MEDS: LIDOCAINE 4% PATCH TOP SCH (08:00)
[2022-12-10] MEDS ORDERED: CEFDINIR 300 MG CAP PO SCH (08:00)
[2022-12-10] MEDS ORDERED: PANTOPRAZOLE 40MG TABLET PO SCH (08:00)
[2022-12-10] MEDS: ALBUTEROL 2.5 MG/3 ML NEB SOL NEB SCH (08:30)
[2022-12-10] MEDS: LOSARTAN POTASSIUM 50 MG TABLET PO SCH (09:04)
[2022-12-10 09:16] VITALS: BP 140/77
[2022-12-10] MEDS: NICOTINE 14 MG/PAT TD SCH (09:18)
[2022-12-10] MEDS ORDERED: DOCUSATE NA/SENNA CONC 1 TAB PO PRN (09:59)
[2022-12-10] MEDS ORDERED: CIPROFLOXACIN HCL 500 MG TAB PO SCH ×2 (15:00→20:00)
--- NOTE | 2022-12-10 15:12 | P.CNS ---
Date of Consult: 12/10/22 Reason for Consult: CKD Requesting Physician: edna ocampo Chief Complaint: Repeated falls History of Present Illness: Patient is an elderly female with a hx of malignant HTN, advanced CKD where she is well known to me from prior hospitalizations at [facility] (formerly [facility]) and more recent clinic f/u visits. She has a hx of parox Afib, diastolic CHF, chronic peripheral edema, FABIAN which has been better as of late, admission with PNA earlier in the year. A hx of OA, neuropathy and other. Pt reports recent repeated falls at home where she lives with a room-mate/caregivers homecare. She reports her legs would give out, she denies orthostatic symptoms or injury from the fall(s). Allergies codeine Allergy (Verified 12/07/22 11:12) Itching/Hives/Rash iodine Allergy (Verified 12/07/22 11:13) Itching/Hives/Rash latex Allergy (Verified 12/07/22 11:13) Itching/Hives/Rash Home Medications: Albuterol Inhaler [Ventolin Inhaler] 2 puff IH Q6H PRN 12/07/22 Amlodipine [Norvasc] 5 mg PO BID 12/07/22 Apixaban [Eliquis] 2.5 mg PO BID 12/07/22 Atorvastatin Calcium [Lipitor] 40 mg PO BEDTIME 12/07/22 Brimonidine Tartrate 10 ml OP TID 12/07/22 Dorzolamide [Trusopt 2% Ophth Selena] 100 drops EACH EYE TID 12/07/22 Ferrous Sulfate 325 mg PO DAILY 12/07/22 Fluticasone/Salmeterol [Advair Hfa 115-21 Mcg Inhaler] 2 puff IH BID 12/07/22 Furosemide 40 mg PO BID 12/07/22 Gabapentin 300 mg PO BID 12/07/22 Losartan/Hydrochlorothiazide [Losartan-Hctz 50-12.5 mg Tab] 100 mg PO BID 12/07/22 Mirtazapine 7.5 mg PO BEDTIME 12/07/22 Pantoprazole [Protonix Tab*] 40 mg PO BID 12/07/22 Potassium Chloride [Klor-Con M10] 10 meq PO DAILY 12/07/22 Vit A/Vit C/D3/Zinc/Herbal 331 [Alive Immune Health Softgel] 50 meq PO BID 12/07/22 carvediloL [Carvedilol] 6.25 mg PO BID 12/07/22 - Past Medical/Surgical History Diabetic: No - Social History Alcohol use: No CD- Drugs: No Caffeine use: No Place of Residence: Home Review of Systems General: Weakness, As per HPI Respiratory: Other (FABIAN better) Cardiovascular: Edema, As per HPI Gastrointestinal: Unremarkable Genitourinary: Other (Abnormal UA) Musculoskeletal: Leg Pain, As per HPI Neurological: Weakness, Other (Falls), As per HPI Physical Examination Temp Pulse Resp BP Pulse Ox 97.6 F 65 18 140/77 94 12/10/22 07:34 12/10/22 09:00 12/10/22 07:34 12/10/22 09:00 12/10/22 07:34 General: Alert, Cooperative HEENT: Atraumatic, Normocephalic Neck: Supple Respiratory: Normal air movement, Other (No rales or rhonchi) Cardiovascular: Regular rate/rhythm, Edema Gastrointestinal: Soft and benign, Non-distended, No tenderness Musculoskeletal: No tenderness, No warmth, Swelling Integumentary: No rashes Neurological: Normal speech, Normal tone, Normal affect Conclusions/Impression: A/P) 1. Underlying progressive CKD, likely CKD IV now 2nd to presumed hypertensive nephrosclerosis +/- renovascular disease Small kidney unilateral, atrophic echogenic Rt kidney on u/s in December. Prior JANY episodes. 2. Current renal function stable and within recent baseline range. 3. ARB dose incorrectly ordered, max dose of Losartan is 100 mg qd and pt's dose prev lowered in light of JANY and since BP had been under reasonable control, lower dose to 50 mg qd 4. Assess orthostatic vitals. Repeated falls, likely multifactorial, pt with chronic weakness/debility. F/u OT/PT eval 5. Abnormal findings in urine, other. Asymptomatic bacteriuria, given prior hx of sepsis and to avoid complications given growth of two organisms with higher CFU, will place on short course of renally dosed Cipro. 6. Chronic diastolic CHF -no overt decompensation, cont Lasix. Elias Alcantar MD, SHWET[facility]
--- NOTE | 2022-12-10 19:22 | P.DS ---
Admission Date: 12/07/22 Discharge Date: 12/10/22 Disposition: ADMISSION Discharge Condition: FAIR Reason for Admission: Repeated falls - Problems (1) UTI (urinary tract infection) Status: Acute (2) Debility Status: Acute (3) Impaired vision Status: Acute (4) Chronic kidney disease, stage III (moderate) Status: Acute Brief History of Present Illness: Ms. Portillo is an 82-year-old right-handed patient with multiple medical problems including hypertension; chronic atrial fibrillation, COPD, who actually came in to the hospital at [facility] with GI bleed while on warfarin, so she was on anticoagulation and warfarin was supratherapeutic in terms of the INR being very elevated. She was seen by the GI service, warfarin was discontinued., that she actually had on the prior to her coming in on the lost vision, acute loss of vision was noted in the left eye. A retina specialist evaluated the patient to determine the possibility of a central retinal artery occlusion and was found to have increased intra-ocular pressure of greater than 40. 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 She had dorzolamide and brimonidine. 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 Given her age and the findings of loss of vision with an elevated erythrocyte sedimentation rate, the patient was felt to have giant cell arteritis and that should have a temporal artery biopsy to rule that out. She was started on IV methylprednisolone and took high dose for 3 days, and Vascular Surgery was consulted for temporal artery biopsy. In addition, she was started on heparin drip for stroke risk reduction. As the patient was worked up, incidentally was found to have a 5.9 cm infrarenal abdominal aortic aneurysm on 11/14/2022, and CT scan of her head and neck revealed focal dissection of the proximal aortic arch of the anterior wall. This was evaluated by CT Surgery, who deferred surgery management given the patient's age, mortality risk, and other comorbid conditions. On 11/30, the patient declined a temporal artery biopsy while in the operating room, reporting that she got nervous about the surgery. She did also refuse to have an attempted procedure to address the infrarenal aortic aneurysm. It was also felt that she had a low suspicion for giant cell arteritis. A repeat study to look at the aortic aneurysm measured at 5.5 cm in the posterior and craniocaudal length of 7 mm. In addition, there was a right main renal artery severe narrowing found with right renal atrophy. The patient was evaluated by all services and felt stable to be discharged with attempted endovascular repair in 2 weeks. However, after discharge home, she was unable to stay upright and fell multiple times due to weakness in the lower extremities. On 12/06/2022, she was found at home by a home health who was attempting to rehabilitation and was unable to get up without maximum assistance. She was felt now to be a more appropriate candidate for acute inpatient rehabilitation prior to going back home. She does live alone and was previously independent, could do all of her own activities of daily living about 6 weeks ago and that she has now lost vision with weakness, inpatient rehabilitation is justified. Hospital Course: Patient was admitted to acute rehab with a goal of undergoing physical therapy and Occupational Therapy to achieve independent with ambulation and ADLs. She has multiple comorbidities including chronic kidney disease which was seen and evaluated her antique dealer Dr. Alcantar. Her UA suggested the presence of UTI. Patient was initially managed with cefdinir but the urine culture grew Klebsiella pneumonia and Enterobacter which is sensitive to ciprofloxacin. Antibiotic was changed to ciprofloxacin. Patient underwent sessions of physical therapy and Occupational Therapy. Today, she decided to sign out AGAINST MEDICAL ADVICE. I tried to convince patient to stay to continue therapy in order to become independent. She states that she would rather go home and continue with therapy at home and to stay in the facility and and have to ask permission for everything he has to do. She had already called her roommate to pick her up. Patient signed out AGAINST MEDICAL ADVICE. I offered a prescription for Cipro to continue treatment for UTI and discussed potential side effects with the ciprofloxacin. Patient voiced understanding and requested for prescription for antibiotics. Vital Signs/Physical Exam: Temp Pulse Resp BP Pulse Ox 97.6 F 65 18 140/77 94 12/10/22 07:34 12/10/22 09:00 12/10/22 07:34 12/10/22 09:00 12/10/22 07:34 Laboratory Data at Discharge: WBC 16.10 thou/uL (4.3-10.9) H 12/09/22 07:50 Hgb 9.2 g/dL (12.0-15.0) L 12/09/22 07:50 Hct 28.3 % (36.0-45.0) L 12/09/22 07:50 Plt Count 347 thou/uL (152-406) 12/09/22 07:50 Sodium 141 mEq/L (136-145) D 12/09/22 07:50 Potassium 3.8 mEq/L (3.5-5.1) 12/09/22 07:50 BUN 63 mg/dL (7-18) H 12/09/22 07:50 Creatinine 2.10 mg/dL (0.55-1.02) H 12/09/22 07:50 Glucose 169 mg/dL (74-106) H 12/09/22 07:50 Magnesium 1.9 mg/dL (1.6-2.4) 12/08/22 05:56 Home Medications: Albuterol Inhaler [Ventolin Inhaler] 2 puff IH Q6H PRN 12/07/22 Amlodipine [Norvasc] 5 mg PO BID 12/07/22 Apixaban [Eliquis] 2.5 mg PO BID 12/07/22 Atorvastatin Calcium [Lipitor] 40 mg PO BEDTIME 12/07/22 Brimonidine Tartrate 10 ml OP TID 12/07/22 Dorzolamide [Trusopt 2% Ophth Selena] 100 drops EACH EYE TID 12/07/22 Ferrous Sulfate 325 mg PO DAILY 12/07/22 Fluticasone/Salmeterol [Advair Hfa 115-21 Mcg Inhaler] 2 puff IH BID 12/07/22 Furosemide 40 mg PO BID 12/07/22 Gabapentin 300 mg PO BID 12/07/22 Losartan/Hydrochlorothiazide [Losartan-Hctz 50-12.5 mg Tab] 100 mg PO BID 12/07/22 Mirtazapine 7.5 mg PO BEDTIME 12/07/22 Pantoprazole [Protonix Tab*] 40 mg PO BID 12/07/22 Potassium Chloride [Klor-Con M10] 10 meq PO DAILY 12/07/22 Vit A/Vit C/D3/Zinc/Herbal 331 [Alive Immune Health Softgel] 50 meq PO BID 12/07/22 carvediloL [Carvedilol] 6.25 mg PO BID 12/07/22 Ciprofloxacin HCl [Cipro] 500 mg PO DAILY #5 tab 12/10/22 New Medications: Ciprofloxacin HCl [Cipro] 500 mg PO DAILY #5 tab
[2022-12-10] MEDS ORDERED: ATORVASTATIN 20 MG TAB PO SCH (21:00)
[2022-12-11] MEDS ORDERED: GABAPENTIN 300 MG CAP PO SCH (08:00)
[2022-12-11] MEDS ORDERED: LOSARTAN POTASSIUM 50 MG TABLET PO SCH ×2 (08:00)
[2022-12-14] MEDS ORDERED: PREDNISONE 5 MG PO SCH (08:00)
== END 2022-12-10 15:45 | disposition other institution (70) | DRG 947 ==
LOC: 5TH 10:30
PROVIDERS: ADMIT Psychiatry & Neurology Neurology with Special Qualifications in Child Neurology; ATTEND Psychiatry & Neurology Neurology with Special Qualifications in Child Neurology
DX: R53.81 Other malaise (principal); J96.00 Acute respiratory failure, unspecified whether with hypoxia or hypercapnia; H34.9 Unspecified retinal vascular occlusion; N18.4 Chronic kidney disease, stage 4 (severe); I13.0 Hypertensive heart and chronic kidney disease with heart failure and stage 1 through stage 4 chronic kidney disease, or unspecified chronic kidney disease; I50.32 Chronic diastolic (congestive) heart failure; N39.0 Urinary tract infection, site not specified; H54.7 Unspecified visual loss; F41.9 Anxiety disorder, unspecified; J44.9 Chronic obstructive pulmonary disease, unspecified; E78.5 Hyperlipidemia, unspecified; F17.200 Nicotine dependence, unspecified, uncomplicated; I48.91 Unspecified atrial fibrillation; I71.40 Abdominal aortic aneurysm, without rupture, unspecified; B96.1 Klebsiella pneumoniae [K. pneumoniae] as the cause of diseases classified elsewhere; B96.89 Other specified bacterial agents as the cause of diseases classified elsewhere; I25.2 Old myocardial infarction; Z86.73 Personal history of transient ischemic attack (TIA), and cerebral infarction without residual deficits
CPT/HCPCS: 36415; 80048; 81001; 82040; 83735; 84134; 85025; 87077; 87086; 87088; 87186; 92523; 94640; 97110; 97116; 97162; 97165; 97530; 97542; J2001; J7613; Q0162